=== PATIENT | male | born 1950 | race Caucasian/White ===

== ENCOUNTER 2017-07-12 09:07 | Day surgery (SDC) | payer BC ==
[2017-07-12] MEDS ORDERED: LACTATED RINGERS 1,000 ML IV SCH (10:09)
[2017-07-12] MEDS ORDERED: PROPOFOL 10 MG/ML 20 ML VIAL IV ONE (10:31)
[2017-07-12 10:33] VITALS: TEMP 96.8
--- NOTE | 2017-07-12 11:00 | P.PCN ---
Date of Procedure: 07/12/17 Procedure(s) Performed: BRIEF HISTORY: Patient is a 66-year-old pleasant white male, scheduled for an elective colonoscopy as a part of screening for colorectal neoplasia. PROCEDURE PERFORMED: Colonoscopy with snare polypectomy. PREOPERATIVE DIAGNOSIS: Screening for colon cancer. IV sedation per Anesthesia. PROCEDURE: After informed consent was obtained, the patient, was brought into the endoscopy unit. IV sedation was administered by Anesthesia under continuous monitoring. Digital rectal examination was normal. Initially the Olympus CF- 160 flexible video colonoscope was then inserted in the rectum, gradually advanced into the cecum without any difficulty. Careful examination was performed as the scope was gradually being withdrawn. Ileocecal valve and the appendiceal orifice were visualized and appeared normal. Prep was excellent. Mucosa of the cecum, ascending colon, transverse colon,appeared normal. In the descending colon there was a 1 cm polyp removed by snare polypectomy. Rest of the descending colon, sigmoid colon, and rectum appeared normal. Retroflexion was performed in the rectum and no lesions were seen. The patient tolerated the procedure well. IMPRESSION: 1 cm descending colon polyp status post snare polypectomy. Rest of the colon appeared normal RECOMMENDATIONS: Findings of this examination were discussed with the patient as well as his family. He was advised to follow with the biopsy results. If the biopsy shows a tubular adenoma he can have a repeat colonoscopy in 3-5 years.
[2017-07-12 11:22] VITALS: BP 110/59; PULSE 90; RESP 18
== END 2017-07-12 11:51 | disposition home or self-care (01) ==
LOC: ORWHC2ENDO 09:07
PROVIDERS: ATTEND Internal Medicine Gastroenterology
DX: Z12.11 Encounter for screening for malignant neoplasm of colon (principal); D12.4 Benign neoplasm of descending colon; I11.0 Hypertensive heart disease with heart failure; I50.9 Heart failure, unspecified; I49.9 Cardiac arrhythmia, unspecified; I25.5 Ischemic cardiomyopathy; E78.5 Hyperlipidemia, unspecified; I47.1 Supraventricular tachycardia; I48.91 Unspecified atrial fibrillation; E07.9 Disorder of thyroid, unspecified; Z79.82 Long term (current) use of aspirin; Z79.899 Other long term (current) drug therapy
CPT/HCPCS: 88305; 45385; J2704

== ENCOUNTER → 2019-06-29 | Outpatient (CLI) | payer MEDICARE, BC ==
[2019-06-29 17:03] LABS: African American GFR (CKD) 80.6 (60.0-200.0); Anion Gap 6.3 mmol/L (4.00-12.00); BUN/Creat Ratio 15.45 Ratio (12.00-20.00); Calcium 9.2 mg/dL (8.7-10.3); Carbon Dioxide 28.7 mmol/L (21.6-31.8); Chol/HDL Ratio 1.64; Non-African American GFR(CKD) 69.6 (60.0-200.0); Potassium 4.5 mmol/L (3.5-5.5)
== END | disposition home or self-care (01) ==
LOC: LABWHC1 08:47
PROVIDERS: ATTEND Physician Assistant
DX: I10 Essential (primary) hypertension (principal); E78.5 Hyperlipidemia, unspecified
CPT/HCPCS: 36415; 80048; 80061

== ENCOUNTER 2020-01-26 02:11 | Observation (INO) | payer MEDICARE, BC ==
--- NOTE | 2020-01-26 02:24 | ED ---
Chest Pain HPI - General Chief Complaint: Chest Pain Stated Complaint: Chest Pain Time Seen by Provider: 01/26/20 02:16 Source: patient, EMS Mode of arrival: EMS - History of Present Illness Initial Comments: Pulses a 69-year-old female with extensive past medical history most noted for CAD status post bypass. Patient presents to the emergency department today for evaluation of chest pain nausea, vomiting diaphoresis and hypotension. Patient reports that yesterday evening he began to feel nauseated and had some discomfort in his lower chest. Patient states he felt like maybe feet throughout. Feel better however he vomited and had no relief in his discomfort. He states that he began to feel sweaty and kind of lightheaded at which time he called 911. EMS found the patient to be mildly hypotensive but otherwise stable. He was given aspirin in route to the hospital. Nitro was held due to patient's hypotension. - Related Data Home Medications Medication Instructions Recorded Confirmed Aspirin [Adult Low Dose Aspirin EC] 81 mg PO DAILY 07/12/17 07/12/17 Atorvastatin Calcium [Lipitor] 1 tab PO DAILY 07/12/17 07/12/17 Benazepril [Lotensin] 1 tab PO DAILY 07/12/17 07/12/17 Lasix(Unknown Dose) 1 tab PO DIRECTED 07/12/17 07/12/17 Levothyroxine Sodium [Synthroid] 100 mcg PO DAILY 07/12/17 07/12/17 Lopressor[place]unkown 1 tab PO DAILY 07/12/17 07/12/17 Spironolactone [Aldactone] 25 mg PO DAILY 07/12/17 07/12/17 Allergies Allergy/AdvReac Type Severity Reaction Status Date / Time bee venom protein (honey bee) AdvReac Severe Rash/Hives Verified 01/26/20 02:18 Review of Systems ROS Statement: Those systems with pertinent positive or pertinent negative responses have been documented in the HPI. ROS Other: All systems not noted in ROS Statement are negative. EKG Findings - EKG Comments: EKG Findings:: EKG was obtained due to complaint of chest pain, EKG was obtained at 2:16 AM, rate is 91 rhythm is sinus, there is evidence of interventricular conduction delay, prolonged QT. No acute ST elevations or depressions no evidence of acute ischemia or infarction. Past Medical History Past Medical History: Atrial Fibrillation, Hyperlipidemia, Myocardial Infarction ([place]) Additional Past Medical History / Comment(s): CABG 5 YR AGO, TOTAL L HIP 2005,HODGIN LYMPH[place] 1976.1977,SPLEENECTOMY 1976 Last Myocardial Infarction Date:: 2011 History of Any Multi-Drug Resistant Organisms: None Reported Past Surgical History: Coronary Bypass/CABG, Heart Catheterization, Joint Replacement, Orthopedic Surgery Additional Past Surgical History / Comment(s): SPLEENECTOMY, HODGIN L[place]MPHOMA [place] 76 AND 1977 Past Anesthesia/Blood Transfusion Reactions: No Reported Reaction Past Psychological History: No Psychological Hx Reported Past Alcohol Use History: None Reported Past Drug Use History: None Reported - Past Family History family Family Medical History: Coronary Artery Disease (CAD) General Exam - General Exam Comments Initial Comments: Physical Exam GENERAL: Patient is well-developed and well-nourished. Patient is nontoxic and well- hydrated and is in no distress. HENT: Normocephalic, Atraumatic. EYES: PERRL, EOMI PULMONARY: Unlabored respirations. No audible rales rhonchi or wheezing was noted. CARDIOVASCULAR: There is a regular rate and rhythm without any murmurs gallops or rubs. Well healed sternotomy scar ABDOMEN: Soft and nontender with normal bowel sounds. No epigastric tenderness SKIN: Skin is clear with no lesions or rashes and otherwise unremarkable. : Deferred NEUROLOGIC: Patient is alert and oriented x3. Moving all extremities spontaneously MUSCULOSKELETAL: Normal extremities with adequate strength and full range of motion. No lower extremity swelling or edema. No calf tenderness. PSYCHIATRIC: Normal psychiatric evaluation. Course Vital Signs 01/26/20 01/26/20 01/26/20 02:14 02:17 02:29 Temperature 98.4 F Pulse Rate 95 98 Respiratory 16 16 16 Rate Blood Pressure 74/56 90/61 O2 Sat by Pulse 97 97 Oximetry 01/26/20 01/26/20 01/26/20 02:46 03:37 04:19 Temperature Pulse Rate 87 87 Respiratory 16 16 Rate Blood Pressure 105/48 98/62 88/43 O2 Sat by Pulse 100 100 Oximetry 01/26/20 05:06 Temperature Pulse Rate 87 Respiratory 15 Rate Blood Pressure 107/61 O2 Sat by Pulse 100 Oximetry Chest Pain [facility] Patient was seen and evaluated history is obtained from patient 59-year-old male with extensive history having episodes of chest pain with associated nausea was noted to be hypertensive for EMS Full cardiac workup was initiated EKG is abnormal but with no acute ischemic changes No previous EKG for comparison Labs were obtained and were relatively unremarkable however given the patient's symptoms and factors would recommend he remain in the hospital for evaluation by cardiology. Patient is agreeable to this. This plan was discussed with Dr. Tee accepts admission. Disposition Clinical Impression: Chest pain Disposition: HOME SELF-CARE Condition: Stable Is patient prescribed a controlled substance at d/c from ED?: No
[2020-01-26 02:26] LABS: Glucose,Whole Blood 153 mg/dL (75-99)
[2020-01-26 02:35] LABS: Basophils % (A) 0 %; Eosinophils # (A) 0.1 k/uL (0-0.7); Eosinophils % (A) 0 %; HCT 41.1 % (39.0-53.0); HGB 13.3 gm/dL (13.0-17.5); Lymphocytes # (A) 1.2 k/uL (1.0-4.8); Lymphocytes % (A) 8 %; MCH 29.1 pg (25.0-35.0); MCHC 32.4 g/dL (31.0-37.0); MCV 90.1 fL (80.0-100.0); Mean Platelet Volume 8.2; Monocytes # (A) 0.5 k/uL (0-1.0); Monocytes % (A) 4 %; Neutrophils # (A) 12.9 k/uL (1.3-7.7); Neutrophils % (A) 87 %; Platelet Count 242 k/uL (150-450); RBC 4.57 m/uL (4.30-5.90); RDW 14.2 % (11.5-15.5); WBC 14.8 k/uL (3.8-10.6)
[2020-01-26 02:49] LABS: ALT 22 U/L (4-49); AST 35 U/L (17-59); African American GFR (CKD) >90 (>60 ml/min/1.73 sqM); Albumin 3.9 g/dL (3.5-5.0); Alkaline Phosphatase 75 U/L (38-126); Anion Gap 9 mmol/L; Blood Urea Nitrogen 17 mg/dL (9-20); Calcium 9.2 mg/dL (8.4-10.2); Carbon Dioxide 25 mmol/L (22-30); Chloride 101 mmol/L (98-107); Glucose 143 mg/dL (74-99); Magnesium 1.9 mg/dL (1.6-2.3); Non-African American GFR(CKD) >90 (>60 ml/min/1.73 sqM); Sodium 135 mmol/L (137-145); Total Bilirubin 0.8 mg/dL (0.2-1.3); Total Protein 6.3 g/dL (6.3-8.2)
[2020-01-26 02:50] LABS: Prothrombin Time 10.4 sec (9.0-12.0)
--- NOTE | 2020-01-26 03:01 | XR ---
EXAMINATION TYPE: XR chest 2V DATE OF EXAM: 01/26/2020 COMPARISON: 06/20/2012 HISTORY: Cardiac surgery chest pain TECHNIQUE: 2 views FINDINGS: Heart is normal. Lungs are clear of infiltrate. There are sternal wires. Costophrenic angle s are clear. There are chest leads. Bony thorax is intact. IMPRESSION: No active cardiopulmonary disease. There is clearing of the pleural fluid and right lower lobe infiltrate compared to old exam.
[2020-01-26 03:02] LABS: Partial Thromboplastin Time 18.7 sec (22.0-30.0)
[2020-01-26] MEDS ORDERED: NITROGLYCERIN SL TABS 0.4 MG TAB SUBLINGUAL PRN (04:59)
--- NOTE | 2020-01-26 05:39 | P.HPIM ---
History of Present Illness H&P Date: 01/26/20 Chief Complaint: chest pain 69-year-old male with paroxysmal A. fib, CAD status post CABG Patient comes in due to having chest pain associated with nausea and vomiting. Symptoms started as feeling nauseous yesterday 7:30 pm with some discomfort in his lower chest 07/05 in [facility] which has progressed to throwing up. After which patient started feeling more pain became diaphoretic and dizzy and lightheaded for which he decided to call 911. EMS found him to be hypotensive, for which no nitro given. currently denies any chest pain , he only feels nauseous , he had couple more episodes of yellowish vomiting in the ED. he denies any fever, diarrhea or GI bleeding , denies any URI sympotmos , denies any recent travel or sick contact EKG no acute ST changes, trops negative. Review of Systems Pertinent positives as noted in HPI. All other systems were reviewed and are negative Past Medical History Past Medical History: Atrial Fibrillation, Hyperlipidemia, Myocardial Infarction ([place]) Additional Past Medical History / Comment(s): CABG 5 YR AGO, TOTAL L HIP 2004,H[place]GIN [place]MPH[place] 1975.1977,SPLEENECTOMY 1976 Last Myocardial Infarction Date:: 2011 History of Any Multi-Drug Resistant Organisms: None Reported Past Surgical History: Coronary Bypass/CABG, Heart Catheterization, Joint Replacement, Orthopedic Surgery Additional Past Surgical History / Comment(s): SPLEENECTOMY, [place]GIN [place] AND 1977 Past Anesthesia/Blood Transfusion Reactions: No Reported Reaction Past Psychological History: No Psychological Hx Reported Past Alcohol Use History: None Reported Past Drug Use History: None Reported - Past Family History family Family Medical History: Coronary Artery Disease (CAD) Medications and Allergies Home Medications Medication Instructions Recorded Confirmed Type Aspirin [Adult Low Dose Aspirin EC] 81 mg PO DAILY 07/12/17 07/12/17 History Atorvastatin Calcium [Lipitor] 1 tab PO DAILY 07/12/17 07/12/17 History Benazepril [Lotensin] 1 tab PO DAILY 07/12/17 07/12/17 History Lasix(Unknown Dose) 1 tab PO DIRECTED 07/12/17 07/12/17 History Levothyroxine Sodium [Synthroid] 100 mcg PO DAILY 07/12/17 07/12/17 History Lopressor[place] 1 tab PO DAILY 07/12/17 07/12/17 History Spironolactone [Aldactone] 25 mg PO DAILY 07/12/17 07/12/17 History Allergies Allergy/AdvReac Type Severity Reaction Status Date / Time bee venom protein (honey bee) AdvReac Severe Rash/Hives Verified 01/26/20 02:18 Physical Exam Vitals: Vital Signs Temp Pulse Resp BP Pulse Ox 01/26/20 05:06 87 15 107/61 100 01/26/20 04:19 87 16 88/43 100 01/26/20 03:37 87 16 98/62 100 01/26/20 02:46 105/48 01/26/20 02:29 16 01/26/20 02:17 98 16 90/61 97 01/26/20 02:14 98.4 F 95 16 74/56 97 Intake and Output 01/25/20 01/25/20 01/26/20 14:59 22:59 06:59 Other: Weight 68.946 kg Constitutional: No acute distress, conversant, pleasant Eyes: Anicteric sclerae, moist conjunctiva, Pupils equal round reactive to light ENMT: NC/AT Oropharynx clear, no erythema, or exudates Neck: Supple, FROM, no masses, or JVD No carotid bruits No thyromegaly Lungs: Clear to auscultation Clear to percussion Normal respiratory effort, no accessory muscle use Cardiovascular: Heart regular in rate and rhythm, No murmurs, gallops, or rubs No peripheral edema Abdominal: Soft Nontender, no guarding, rebound or rigidity Abdomen moving with respiration Normoactive bowel sounds No hepatomegaly, No splenomegaly No palpable mass No abdominal wall hernia noted Skin: Normal temperature, tone, texture, turgor No induration No subcutaneous nodules No rash, lesions No ulcers Extremities: No digital cyanosis No clubbing Pedal pulses intact and symmetrical Radial pulses intact and symmetrical No calf tenderness Psychiatric: Alert and oriented to person, place and time Appropriate affect fair judgement Neuro Muscles Strength 5/5 in all 4 extremities Sensation to light touch grossly present throughout Cranial nerves II-XII grossly intact No focal sensory deficits Lymphatics: no palpable cervical or supraclavicular , or inguinal lymph nodes Results CBC & Chem 7: 01/26/20 02:22 01/26/20 02:22 Labs: Abnormal Lab Results - Last 24 Hours (Table) 01/26/20 01/26/20 01/26/20 Range/Units 02:22 02:22 02:22 WBC 14.8 H (3.8-10.6) k/uL Neutrophils # 12.9 H (1.3-7.7) k/uL APTT 18.7 L (22.0-30.0) sec Sodium 135 L (137-145) mmol/L Glucose 143 H (74-99) mg/dL POC Glucose (mg/dL) (75-99) mg/dL 01/26/20 Range/Units 02:24 WBC (3.8-10.6) k/uL Neutrophils # (1.3-7.7) k/uL APTT (22.0-30.0) sec Sodium (137-145) mmol/L Glucose (74-99) mg/dL POC Glucose (mg/dL) 153 H (75-99) mg/dL Assessment and Plan Assessment: atypical chest pain hypotension history of CAD s/p CABG 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
[2020-01-26] MEDS: SODIUM CHLORIDE 0.9% 1,000 ML IV SCH ×2 (06:04→16:18)
[2020-01-26] MEDS: PANTOPRAZOLE 40 MG TABLET PO SCH ×2 (06:04→16:20)
[2020-01-26] MEDS: ATORVASTATIN 80 MG TAB PO SCH (08:09)
[2020-01-26] MEDS: ASPIRIN 81 MG PO SCH (08:09)
[2020-01-26] MEDS: HEPARIN SODIUM,PORCINE 5,000 UNIT/ML 1 ML VIAL SQ SCH ×3 (08:09→23:26)
--- NOTE | 2020-01-26 08:14 | US ---
EXAMINATION TYPE: US gallbladder DATE OF EXAM: 01/26/2020 COMPARISON: NONE CLINICAL HISTORY: pain vomiting. Pain, vomiting EXAM MEASUREMENTS: Liver Length: 15.0 cm Gallbladder Wall: 0.2 cm CBD: 0.4 cm Right Kidney: 9.4 x 3.4 x 3.7 cm Pancreas: Difficult to visualize due to overlying bowel gas, head appeared wnl Liver: Cyst right lobe= 1.0 x 0.9 x 1.1 cm, otherwise appeared wnl Gallbladder: wnl Evidence for sonographic Barbosa's sign: No CBD: wnl Right Kidney: wnl The pancreas is poorly visualized. The liver is normal in size without biliary dilatation. There is a 1.1 cm simple appearing cyst in th e right lobe of the liver. The gallbladder is unremarkable. Gallbladder wall measures 2 mm. The distal common hepatic duct measu res 4 mm. The right kidney is unremarkable. The intrahepatic IVC is unremarkable. IMPRESSION: SIMPLE APPEARING, 1.1 CM RIGHT HEPATIC CYST.
[2020-01-26] MEDS ORDERED: ATORVASTATIN 40 MG TAB PO SCH (09:00)
[2020-01-26] MEDS: LEVOTHYROXINE 100 MCG TAB PO SCH (10:14)
[2020-01-26] MEDS ORDERED: ONDANSETRON 4 MG/2 ML VIAL IVP PRN (10:20)
[2020-01-26] MEDS ORDERED: CALCIUM CARBONATE 500 MG CHEWABLE PO PRN (10:22)
--- NOTE | 2020-01-26 10:42 | CONS ---
CONSULTATION CHIEF COMPLAINT: Nausea and abdominal discomfort. Shamar is a 69-year-old gentleman with history of coronary artery disease status post CABG, hypertension, hypothyroidism, who is admitted to the hospital primarily with abdominal discomfort and recurrent bouts of nausea and he also had some vague chest discomfort in all this due to which Cardiology has been consulted. The patient's predominant symptom are the abdominal symptoms and is currently being evaluated for gallbladder related problems. At the time of my evaluation, he is chest pain free. EKG does not reveal acute ischemic changes. There is evidence of prior inferoposterior wall myocardial infarction. He has had 3 sets of troponin that have all been within normal limits. His potassium is normal. Creatinine is 0.8. PAST MEDICAL HISTORY: Significant for coronary artery disease status post CABG, hypertension, dyslipidemia, hypothyroidism. MEDICATIONS: Include Toprol-XL 50 daily, Lasix 20 daily, Lotensin 5 daily Lipitor 80 daily, aspirin, Synthroid and Aldactone. ALLERGIES: ALLERGY TO HONEY BEE. FAMILY HISTORY: Negative for premature coronary artery disease. SOCIAL HISTORY: Negative for smoking, EtOH abuse, or drug abuse. REVIEW OF SYSTEMS: HEENT is unremarkable. Cardiac as described above. Respiratory as described above. GI negative. Endocrine negative. Allergy none. Skin negative. Musculoskeletal significant for arthritis. Psychosocial negative. CONSTITUTIONAL negative. DERM negative. ONCOLOGICAL negative. 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 Rest of the system review is not relevant. PHYSICAL EXAM: Afebrile. Heart rate is 90 beats per minute. Blood pressure is 110/64, respiratory rate is 18. O2 saturation is 98% on room air. There is no jugular venous distention. Carotid upstroke is normal. There is no bruit. Chest exam reveals good air entry bilaterally. Heart exam reveals first and second heart sounds. No gallop. No murmur. ABDOMEN: Soft. Exam of extremities did not reveal any edema. Peripheral pulses are felt. LAB: Show that the hemoglobin is 13.3, potassium is 4, creatinine is 0.8. Three sets of troponins are negative. ASSESSMENT: 1. Atypical chest pain. 2. Coronary artery disease, status post coronary artery bypass grafting. 3. Hypertension. 4. Dyslipidemia. 5. Abdominal discomfort and nausea. PLAN: From cardiac standpoint, patient is doing well. I will obtain a 2D echo on him to evaluate his LV function. The patient states that he recently had a stress test through Dr. Avila. We will review the results in the morning. He does not require any further cardiac workup at this time. MMODL / IJN: [id number] /
[2020-01-26] MEDS ORDERED: MAG HYDROX/AL HYDROX/SIMETH 30 ML, HYOSCYAMINE ELIXIR 10 ML, LIDOCAINE VISCOUS 2% 10 ML PO ONE ×3 (11:00)
[2020-01-26 11:06] LABS: HCT 41.5 % (39.0-53.0); HGB 13.4 gm/dL (13.0-17.5); MCH 29.3 pg (25.0-35.0); MCHC 32.3 g/dL (31.0-37.0); MCV 90.8 fL (80.0-100.0); Platelet Count 267 k/uL (150-450); RBC 4.57 m/uL (4.30-5.90); RDW 14.1 % (11.5-15.5); WBC 13.1 k/uL (3.8-10.6)
[2020-01-26 11:11] LABS: AST 36 U/L (17-59); African American GFR (CKD) >90 (>60 ml/min/1.73 sqM); Albumin 3.9 g/dL (3.5-5.0); Alkaline Phosphatase 76 U/L (38-126); Anion Gap 8 mmol/L; Blood Urea Nitrogen 16 mg/dL (9-20); Calcium 9.3 mg/dL (8.4-10.2); Carbon Dioxide 26 mmol/L (22-30); Chloride 101 mmol/L (98-107); Glucose 133 mg/dL (74-99); Non-African American GFR(CKD) 87 (>60 ml/min/1.73 sqM); Potassium 4.3 mmol/L (3.5-5.1); Sodium 135 mmol/L (137-145); Total Bilirubin 0.7 mg/dL (0.2-1.3); Total Protein 6.2 g/dL (6.3-8.2)
[2020-01-26 11:18] LABS: ALT 28 U/L (4-49)
[2020-01-26] MEDS: IOPAMIDOL CONTRAST (ORAL USE) VIAL PO PRN ×2 (11:43→13:09)
--- NOTE | 2020-01-26 13:12 | P.PN ---
Subjective Progress Note Date: 01/26/20 Principal diagnosis: nausea Patient is a 69-year-old male with a history of atrial fibrillation, coronary artery disease status post CABG, and osteoarthritis who presented to the e mergency department secondary to nausea and vomiting associated with chest pain. In the ER he underwent extensive evaluation. He was brought in by EMS and had been hypotensive in route and on arrival. Therefore no nitroglycerin was given. He continued to have yellowish vomiting in the emergency department. Initial laboratory analysis showed a white blood cell count 14.8, sodium 135, glucose 1 43, and initial troponin was negative. Initial EKG did not show any signs of acute ischemia. Chest x-ray showed no acute process, EKG demonstrated normal sinus rhythm significantly prolonged QT at 501. He doesn't know that he went blueberry picking and is unsure of all of the blueberries were washed appropriately, he denies any other unusual changes in food. His does not have a significant history of gastritis. The remainder of his troponins were negative. He was seen by cardiology who recommended review of his outpatient stress test in the morning as well as an echocardiogram. Due to his persistent nausea and vomiting CT abdomen and pelvis was ordered. Patient seen and examined at bedside. Currently chest pain-free, does complain of some john-epigastric pain however he states that it is mostly nausea. He reports that he blueberry picking and is unsure if the blueberries were washed well. He denies any recent changes in his medication. He has not ate or drank anything new or unusual. He does not have a strong history of heartburn. Objective - Vital Signs Vital signs: Vital Signs Temp 98 F 01/26/20 08:52 Pulse 92 01/26/20 09:00 Resp 18 01/26/20 09:00 BP 109/64 01/26/20 08:52 Pulse Ox 98 01/26/20 08:52 Intake & Output 01/25/20 01/26/20 01/26/20 18:59 06:59 18:59 Intake Total 0 0 Balance 0 0 Weight 68.946 kg Intake: Oral 0 0 - Exam General: Ill appearing, no distress, appears at stated age Derm: warm, dry Head: atraumatic, normocephalic, symmetric Eyes: EOMI, no lid lag, anicteric sclera Mouth: no lip lesion, mucus membranes moist Cardiovascular: S1S2 reg, no murmur, positive posterior tibial pulse bilateral, Lungs: CTA bilateral, no rhonchi, no rales , no accessory muscle use Abdominal: soft, nontender to palpation, no guarding, no appreciable organomegaly Ext: no gross muscle atrophy, no edema, no contractures Neuro: CN II-XI grossly intact, no focal neuro deficits Psych: Alert, oriented, flat affect - Labs CBC & Chem 7: 01/26/20 05:26 01/26/20 05:26 Labs: Abnormal Lab Results - Last 24 Hours (Table) 01/26/20 01/26/20 01/26/20 Range/Units 02:22 02:22 02:22 WBC 14.8 H (3.8-10.6) k/uL Neutrophils # 12.9 H (1.3-7.7) k/uL APTT 18.7 L (22.0-30.0) sec Sodium 135 L (137-145) mmol/L Glucose 143 H (74-99) mg/dL POC Glucose (mg/dL) (75-99) mg/dL Total Protein (6.3-8.2) g/dL 01/26/20 01/26/20 01/26/20 Range/Units 02:24 05:26 05:26 WBC 13.1 H (3.8-10.6) k/uL Neutrophils # (1.3-7.7) k/uL APTT (22.0-30.0) sec Sodium 135 L (137-145) mmol/L Glucose 133 H (74-99) mg/dL POC Glucose (mg/dL) 153 H (75-99) mg/dL Total Protein 6.2 L (6.3-8.2) g/dL Assessment and Plan Assessment: nausea and vomiting - gallbladder US neggative - Zofran - GI cocktail - CT abd and pelvis Chest pain wiht hx of CAD - trop negative - Cardio recs appreciated: review of recent stress test and echo in AM - ASA, Lipitor Hypotension - improved after fluids - hold benzapril and metoprolol, aldactone Prolonged Qt - monitor closely with zofran Hypothyroidism - synthroid DVT prophylaxis: heparin Discussed with: patient Anticipated discharge: in 1-[address]: home A total of 25 minutes was spent on the care of this complex patient more than 50% of the time was spent in counseling and care coordination.
--- NOTE | 2020-01-26 14:26 | CT ---
EXAMINATION TYPE: CT abdomen pelvis w con DATE OF EXAM: 01/26/2020 COMPARISON: None HISTORY: pain and nausea CT DLP: 532.1 mGycm Automated exposure control for dose reduction was used. CONTRAST: Performed with IV Contrast, patient injected with 100 mL of Isovue 300. Lung bases are clear. There is no pleural effusion. Heart size is normal. There is 2 cm cyst in the superior right lobe of the liver. Gallbladder appears normal. Bile ducts ar e not dilated. Spleen appears absent. There is no evidence of pancreatic mass. The stomach is intact. There is no adrenal mass. Kidneys show satisfactory contrast opacification. There is no hydronephrosi s. There is normal excretion on the delayed images. Ureters are not dilated. There is no retroperiton eal adenopathy. Bladder distends smoothly. There is left hip prosthesis. There is no mesenteric edema. There is no ascites or free air. There is no sign of a bowel obstructio n. Lumbar vertebra have normal alignment. Disc spaces are fairly normal. There is no compression frac ture. Bony pelvis appears intact. There is minor arthritic change in the right hip joint. There is no intestinal wall thickening. There is mild dilation of the small bowel with the oral contr ast up to 3.3 cm. This is seen in the mid ileum. The contrast however is seen in the right colon and transverse colon. There are surgical clips in the retroperitoneum. IMPRESSION: There is evidence of mild small bowel ileus. No mechanical obstruction. Spleen is absent. Previous aguilar rgery.
[2020-01-26] MEDS ORDERED: polyethylene glycoL 3350 17 GM POWD.PACK PO STA (14:40)
[2020-01-26 20:07] VITALS: RESP 16
[2020-01-27] MEDS: SODIUM CHLORIDE 0.9% 1,000 ML IV SCH (00:54)
[2020-01-27 04:18] LABS: Cholesterol 119 mg/dL (<200); HDL Cholesterol 77 mg/dL (40-60); LDL Cholesterol,Calculated 31 mg/dL (0-99); Triglycerides 54 mg/dL (<150)
[2020-01-27] MEDS: LEVOTHYROXINE 100 MCG TAB PO SCH (06:03)
[2020-01-27] MEDS: PANTOPRAZOLE 40 MG TABLET PO SCH (06:03)
[2020-01-27] MEDS ORDERED: ASPIRIN 325 MG TAB PO SCH (09:00)
[2020-01-27] MEDS: HEPARIN SODIUM,PORCINE 5,000 UNIT/ML 1 ML VIAL SQ SCH (09:18)
[2020-01-27] MEDS: ATORVASTATIN 80 MG TAB PO SCH (09:18)
[2020-01-27] MEDS: ASPIRIN 81 MG PO SCH (09:18)
--- NOTE | 2020-01-27 10:08 | P.PN ---
Subjective This is a pleasant 69-year-old male past medical history significant for coronary artery disease status post bypass grafting, Hodgkin's lymphoma in the 1970s, hypothyroidism, dyslipidemia and hypertension. He follows in the office with Dr. Avila. He is seen and examined sitting up in the chair in no acute distress. He states his abdominal pain, nausea and vomiting has subsided. He has no further symptoms of chest discomfort. He denies shortness of breath, dizziness or palpitations. He underwent CT of the abdomen pelvis revealing evidence of a mild small bowel ileus with no mechanical obstruction. Blood pressure 93/56 heart rate 81 afebrile maintaining oxygen saturation on room air. Currently maintained on aspirin 81 mg daily, atorvastatin 80 mg daily. He is receiving her Protonix since admission. Antihypertensives and diuretics have been held secondary to hypotension. GENERAL: Well-appearing, well-nourished and in no acute distress. NECK: Supple without JVD or thyromegaly. LUNGS: Breath sounds clear to auscultation bilaterally. Respiration equal and unlabored. No wheezes, rales or rhonchi. HEART: Regular rate and rhythm without murmurs, rubs or gallops. S1 and S2 heard. EXTREMITIES: Normal range of motion, no edema. No clubbing or cyanosis. Peripheral pulses intact. ASSESSMENT Chest pain, atypical. An acute coronary event has been ruled out Leukocytosis Abdominal pain with possible ileus Hypotension Coronary artery disease status post bypass grafting History of hypertension Dyslipidemia PLAN Ongoing medical management and further evaluation of ileus. Follow up in the office with Dr. Avila upon discharge. Nurse Practitioner note has been reviewed, I agree with a documented findings and plan of care. Patient was seen and examined. Objective - Vital Signs Vital signs: Vital Signs Temp 97.9 F 01/27/20 03:00 Pulse 81 01/27/20 03:00 Resp 16 01/27/20 03:00 BP 93/56 01/27/20 03:00 Pulse Ox 95 01/27/20 03:00 Intake & Output 01/26/20 01/27/20 01/27/20 18:59 06:59 18:59 Intake Total 0 800 Balance 0 800 Intake: Intake, IV Titration 800 Amount Sodium Chloride 0.9% 1, 800 000 ml @ 100 mls/hr IV . Q10H KYLE Rx#:[id number] Oral 0 0 Other: # Voids 1 1 - Labs CBC & Chem 7: 01/26/20 05:26 01/26/20 05:26 Labs: Abnormal Lab Results - Last 24 Hours (Table) 01/26/20 01/26/20 01/26/20 Range/Units 05:26 05:26 05:26 WBC 13.1 H (3.8-10.6) k/uL Sodium 135 L (137-145) mmol/L Glucose 133 H (74-99) mg/dL Total Protein 6.2 L (6.3-8.2) g/dL HDL Cholesterol 77 H (40-60) mg/dL
[2020-01-27 10:29] VITALS: BP 112/66; PULSE 71; TEMP 97.5
--- NOTE | 2020-01-27 10:58 | P.DS ---
Providers Date of admission: 01/26/20 05:00 Expected date of discharge: 01/27/20 Attending physician: Delores Tee MD Consults: 01/26/20 05:00 Consult Physician Urgent Consulting Provider: Thee Avila Consult Reason/Comments: established patient, known CAD, chest pain Do you want consulting provider notified?: Yes, Notify in am Primary care physician: Salomon Cárdenas Hospital Course: Discharge Diagnosis: Ileus Atypical chest pain epigastric pain Hypotnesion, resolved CAD with hx of CABG HLD HTN Hospital Course: Patient is a 69-year-old male with a history of atrial fibrillation, coronary artery disease status post CABG, and osteoarthritis who presented to the emergency department secondary to nausea and vomiting associated with chest pain. In the ER he underwent extensive evaluation. He was brought in by EMS and had been hypotensive in route and on arrival. Therefore no nitroglycerin was given. He continued to have yellowish vomiting in the emergency department. Initial laboratory analysis showed a white blood cell count 14.8, sodium 135, glucose 143, and initial troponin was negative. Initial EKG did not show any signs of acute ischemia. Chest x-ray showed no acute process, EKG demonstrated normal sinus rhythm significantly prolonged QT at 501. He doesn't know that he went blueberry picking and is unsure of all of the blueberries were washed appropriately, he denies any other unusual changes in food. His does not have a significant history of gastritis. The remainder of his troponins were negative. He was seen by cardiology who recommended review of his outpatient stress test in the morning as well as an echocardiogram. Due to his persistent nausea and vomiting CT abdomen and pelvis was ordered which showed an ileus. He was given a dose of miralax and had a bowel movment. Between the bowel movement and PPI his nausea and abd pain resolved. He was cleared by cardiology for disharge and outpatient follow-up. He will remain on a PPI for atleast 4 weeks. Patient seen and examined at bedside. Nausea and pain is resolved.BM yesterday. Vital signs reviewed and stable. General: non toxic, no distress, appears at stated age Derm: warm, dry Head: atraumatic, normocephalic, symmetric Eyes: EOMI, no lid lag, anicteric sclera Mouth: no lip lesion, mucus membranes moist Cardiovascular: S1S2 reg, no murmur, positive posterior tibial pulse bilateral, Lungs: CTA bilateral, no rhonchi, no rales , no accessory muscle use Abdominal: soft, nontender to palpation, no guarding, no appreciable organomegaly Ext: no gross muscle atrophy, no edema, no contractures Neuro: CN II-XI grossly intact, no focal neuro deficits Psych: Alert, oriented, appropriate affect A total of 25 minutes of time were spent preparing this complex discharge summary. Patient Condition at Discharge: Stable Plan - Discharge Summary Discharge Rx Participant: Yes New Discharge Prescriptions: New Pantoprazole [Protonix] 40 mg PO AC-BID #60 tablet.dr Desouza Levothyroxine Sodium [Synthroid] 100 mcg PO DAILY Atorvastatin Calcium [Lipitor] 80 mg PO DAILY Aspirin [Adult Low Dose Aspirin EC] 81 mg PO DAILY Discontinued Benazepril [Lotensin] 5 mg PO DAILY Spironolactone [Aldactone] 25 mg PO DAILY Metoprolol Succinate (ER) [Toprol Xl] 50 mg PO DAILY Furosemide [Lasix] 20 mg PO DAILY Discharge Medication List Aspirin [Adult Low Dose Aspirin EC] 81 mg PO DAILY 07/12/17 [History] Atorvastatin Calcium [Lipitor] 80 mg PO DAILY 07/12/17 [History] Levothyroxine Sodium [Synthroid] 100 mcg PO DAILY 07/12/17 [History] Pantoprazole [Protonix] 40 mg PO AC-BID #60 tablet. 01/27/20 [Rx] Follow up Appointment(s)/Referral(s): Thee Avila MD [STAFF PHYSICIAN] - 2 Weeks Salomon Cárdenas MD [Primary Care Provider] - 1-2 days Activity/Diet/Wound Care/Special Instructions: Activity: as tolerated Diet: heart healthy Special Instructions: You will be off your blood pressure medications at home. Please keep the medications Take blood pressure in the morning afternoon Please resume your metoprolol if 2 reading in a row show a top number of greater than 130. Discharge Disposition: HOME SELF-CARE
--- NOTE | 2020-01-28 11:37 | ECHOF ---
Referral Reason:chest pain MEASUREMENTS -------- HEIGHT: 177.8 cm WEIGHT: 68.9 kg BP: 94/53 IVSd: 1.0 cm (0.6 - 1.1) LVIDd: 3.5 cm (3.9 - 5.3) LVPWd: 1.0 cm (0.6 - 1.1) IVSs: 1.2 cm LVIDs: 2.8 cm LVPWs: 1.3 cm LA Diam: 3.1 cm (2.7 - 3.8) RVIDd: 4.0 cm (< 3.3) Ao Diam: 3.6 cm (2.0 - 3.7) AV Cusp: 1.9 cm (1.5 - 2.6) EPSS: 1.8 cm MV E Yaniv: 1.49 m/s MV DecT: 236 ms MV A Yaniv: 0.91 m/s MV E/A Ratio: 1.64 RAP: 5.00 mmHg RVSP: 36.29 mmHg MV EF SLOPE: 24.97 mm/s (70 - 150) MV EXCURSION: 8.46 mm (> 18.000) FINDINGS -------- Sinus rhythm. This was a technically difficult study with suboptimal apical views. The left ventricular size is normal. Left ventricular wall thickness is normal. Overall left vent ricular systolic function is moderately impaired with, an EF between 35 - 40 %. Apical lateral LV w all motion is hypokinetic. Apical septum LV wall motion is hypokinetic. The right ventricle is moderately enlarged. The left atrial size is normal. The right atrium is normal in size. Interatrial and interventricular septum intact. There is mild aortic valve sclerosis. Mild mitral annular calcification present. Mild mitral regurgitation is present. Mild mitral sten osis. The peak and mean MV gradients are 10.47mmHg 4.52mmHg as measured by doppler. Mild tricuspid regurgitation present. There is mild pulmonary hypertension. The right ventricular systolic pressure, as measured by Doppler, is 36.29mmHg. Trace/mild (physiologic) pulmonic regurgitation. The aortic root size is normal. Normal inferior vena cava with normal inspiratory collapse consistent with estimated right atrial pre ssure of 5 mmHg. There is no pericardial effusion. xx ml of Lumason was utilized for enhancement of images. CONCLUSIONS -------- 1. The left ventricular size is normal. 2. Left ventricular wall thickness is normal. 3. Overall left ventricular systolic function is moderately impaired with, an EF between 35 - 40 %. 4. Apical lateral LV wall motion is hypokinetic. 5. Apical septum LV wall motion is hypokinetic. 6. The right ventricle is moderately enlarged. 7. The left atrial size is normal. 8. There is mild aortic valve sclerosis. 9. Mild mitral annular calcification present. 10. Mild mitral regurgitation is present. 11. The peak and mean MV gradients are 10.47mmHg 4.52mmHg as measured by doppler. 12. Mild mitral stenosis. 13. Mild tricuspid regurgitation present. 14. There is mild pulmonary hypertension. 15. The right ventricular systolic pressure, as measured by Doppler, is 36.29mmHg. 16. Trace/mild (physiologic) pulmonic regurgitation. 17. There is no pericardial effusion. INTERNET SECURITY SPECIALIST: Mari Hook RDCS
== END 2020-01-27 15:14 | disposition home or self-care (01) ==
LOC: EC 02:11 → 3NCARDOBS 05:00
PROVIDERS: ADMIT Internal Medicine; ATTEND Internal Medicine
DX: R07.89 Other chest pain (principal); K56.7 Ileus, unspecified; K29.70 Gastritis, unspecified, without bleeding; I95.9 Hypotension, unspecified; I25.10 Atherosclerotic heart disease of native coronary artery without angina pectoris; Z95.1 Presence of aortocoronary bypass graft; E78.5 Hyperlipidemia, unspecified; I10 Essential (primary) hypertension; I45.89 Other specified conduction disorders; R94.31 Abnormal electrocardiogram [ECG] [EKG]; I48.91 Unspecified atrial fibrillation; I25.2 Old myocardial infarction; M19.90 Unspecified osteoarthritis, unspecified site; E03.9 Hypothyroidism, unspecified; I08.3 Combined rheumatic disorders of mitral, aortic and tricuspid valves; Z03.818 Encounter for observation for suspected exposure to other biological agents ruled out; Z79.82 Long term (current) use of aspirin; Z79.899 Other long term (current) drug therapy; Z79.890 Hormone replacement therapy; Z91.030 Bee allergy status; Z96.642 Presence of left artificial hip joint; Z85.71 Personal history of Hodgkin lymphoma; Z90.81 Acquired absence of spleen; Z98.890 Other specified postprocedural states; Z82.49 Family history of ischemic heart disease and other diseases of the circulatory system
CPT/HCPCS: 93005 ×2; 96372 ×2; 96374; 99285; 36415; 83880; 80061; 80053; 83690; 83735; 84484; 85025; 85027; 85610; 85730; 71046; 76705; 74177; G0378 ×2; C8929; U0003; J1644 ×2; J2405; Q9950; Q9967; 93306

== ENCOUNTER 2020-02-04 17:27 | Emergency (ER) | payer MEDICARE, BC ==
[2020-02-04 17:39] VITALS: RESP 18
[2020-02-04] MEDS ORDERED: SODIUM CHLORIDE 0.9% 500 ML 500 ML IV STA (18:14)
--- NOTE | 2020-02-04 18:25 | ED ---
General Adult HPI - General Chief complaint: Arrhythmia/Palpitations Stated complaint: irregular heart beat/High BP Time Seen by Provider: 02/04/20 17:35 Source: patient, RN notes reviewed, old records reviewed Mode of arrival: wheelchair Limitations: no limitations - History of Present Illness Initial comments: This is a 69-year-old male who comes into the emergency department today stating that he is been monitoring his blood pressure and heart rate for various reasons for the last week or so patient states all of a sudden today his blood pressure went up to 169 systolic and his heart rate was 114 so that concerned him so he came to the emergency department. Patient states he was in the hospital about a week ago and was told to stop his 2 blood pressure medicines and his diuretic. Patient states went to see his primary care doctor and he told to start meds back up today. He was supposed to start his beta carolyn but cut it in half. Patient states he had no chest pain he did feel occasional extra beat. Patient denied any shortness of breath. Patient denied lightheadedness or dizziness. Patient denied any recent fever chills per patient denies any swelling to the legs or calf tenderness. Patient is currently asymptomatic - Related Data Home Medications Medication Instructions Recorded Confirmed Aspirin [Adult Low Dose Aspirin EC] 81 mg PO DAILY 07/12/17 02/04/20 Atorvastatin Calcium [Lipitor] 80 mg PO DAILY 07/12/17 02/04/20 Levothyroxine Sodium [Synthroid] 100 mcg PO DAILY 07/12/17 02/04/20 Benazepril [Lotensin] 5 mg PO DAILY 02/04/20 02/04/20 Furosemide [Lasix] 20 mg PO DAILY 02/04/20 02/04/20 Metoprolol Succinate (ER) [Toprol 50 mg PO DAILY 02/04/20 02/04/20 Xl] Spironolactone [Aldactone] 25 mg PO DAILY 02/04/20 02/04/20 Previous Rx's Medication Instructions Recorded Pantoprazole [Protonix] 40 mg PO AC-BID #60 tablet. 01/27/20 Allergies Allergy/AdvReac Type Severity Reaction Status Date / Time bee venom protein (honey bee) AdvReac Severe Rash/Hives Verified 02/04/20 19:13 Review of Systems ROS Statement: Those systems with pertinent positive or pertinent negative responses have been documented in the HPI. ROS Other: All systems not noted in ROS Statement are negative. Past Medical History Past Medical History: Atrial Fibrillation, Hyperlipidemia, Myocardial Infarction (PR) Additional Past Medical History / Comment(s): CABG 5 YR AGO, TOTAL L HIP 2004,HODGIN LYMPHOMA [place] 1975.1977,SPLEENECTOMY 1976 Last Myocardial Infarction Date:: 2011 History of Any Multi-Drug Resistant Organisms: None Reported Past Surgical History: Coronary Bypass/CABG, Heart Catheterization, Joint Replacement, Orthopedic Surgery Additional Past Surgical History / Comment(s): SPLEENECTOMY, HODGIN LYMPHOMA [place] AND 1977 Past Anesthesia/Blood Transfusion Reactions: No Reported Reaction Past Psychological History: No Psychological Hx Reported Past Alcohol Use History: None Reported Past Drug Use History: None Reported - Past Family History family Family Medical History: Coronary Artery Disease (CAD) General Exam - General Exam Comments Initial Comments: GENERAL: Patient is well-developed and well-nourished. Patient is nontoxic and well-h ydrated and is in no acute distress. ENT: Neck is soft and supple. No significant lymphadenopathy is noted. Oropharynx is clear. Moist mucous membranes. Neck has full range of motion without elic iting any pain. EYES: The sclera were anicteric and conjunctiva were pink and moist. Extraocular movements were intact and pupils were equal round and reactive to light. Eyelids were unremarkable. PULMONARY: Unlabored respirations. Good breath sounds bilaterally. No audible rales rhonchi or wheezing was noted. CARDIOVASCULAR: There is a regular rate and rhythm without any murmurs gallops or rubs. ABDOMEN: Soft and nontender with normal bowel sounds. SKIN: Skin is clear with no lesions or rashes and otherwise unremarkable. NEUROLOGIC: Patient is alert and oriented x3. Cranial nerves II through XII are grossly intact. Motor and sensory are also intact. Normal speech, volume and content. Symmetrical smile. MUSCULOSKELETAL: Normal extremities with adequate strength and full range of motion. No lower extremity swelling or edema. No calf tenderness. LYMPHATICS: No significant lymphadenopathy is noted PSYCHIATRIC: Normal psychiatric evaluation. Limitations: no limitations Course Vital Signs 02/04/20 02/04/20 17:33 19:00 Temperature 98.2 F Pulse Rate 107 H 85 Respiratory 18 18 Rate Blood Pressure 136/82 135/80 O2 Sat by Pulse 99 99 Oximetry Medical Decision Making - Medical Decision Making EKG shows sinus rhythm with occasional PVC at a rate of 99 bpm AL interval is 174 QRS is 96 QT interval 360 QTC is 462. Patient's EKG shows no ST segment elevation. Chest x-ray shows no acute abnormality. Patient's been a symptomatically throughout his ED stay. - Lab Data Result diagrams: 02/04/20 18:24 02/04/20 18:24 Lab Results 02/04/20 02/04/20 02/04/20 Range/Units 18:24 18:24 18:24 WBC 7.4 (3.8-10.6) k/uL RBC 4.86 (4.30-5.90) m/uL Hgb 13.8 (13.0-17.5) gm/dL Hct 44.6 (39.0-53.0) % MCV 91.8 (80.0-100.0) fL MCH 28.5 (25.0-35.0) pg MCHC 31.0 (31.0-37.0) g/dL RDW 13.8 (11.5-15.5) % Plt Count 294 (150-450) k/uL Neutrophils % 52 % Lymphocytes % 34 % Monocytes % 7 % Eosinophils % 4 % Basophils % 1 % Neutrophils # 3.8 (1.3-7.7) k/uL Lymphocytes # 2.5 (1.0-4.8) k/uL Monocytes # 0.5 (0-1.0) k/uL Eosinophils # 0.3 (0-0.7) k/uL Basophils # 0.1 (0-0.2) k/uL Hypochromasia Slight PT 10.1 (9.0-12.0) sec INR 1.0 (<1.2) APTT 21.6 L (22.0-30.0) sec Sodium 135 L (137-145) mmol/L Potassium 4.1 (3.5-5.1) mmol/L Chloride 101 (98-107) mmol/L Carbon Dioxide 25 (22-30) mmol/L Anion Gap 9 mmol/L BUN 14 (9-20) mg/dL Creatinine 1.11 (0.66-1.25) mg/dL Est GFR (CKD-EPI)AfAm 79 (>60 ml/min/1.73 sqM) Est GFR (CKD-EPI)NonAf 69 (>60 ml/min/1.73 sqM) Glucose 107 H (74-99) mg/dL Calcium 9.1 (8.4-10.2) mg/dL Magnesium 1.8 (1.6-2.3) mg/dL Total Bilirubin 0.6 (0.2-1.3) mg/dL AST 87 H (17-59) U/L ALT 61 H (4-49) U/L Alkaline Phosphatase 89 (38-126) U/L Troponin I (0.000-0.034) ng/mL Total Protein 6.4 (6.3-8.2) g/dL Albumin 3.9 (3.5-5.0) g/dL TSH 6.260 H (0.465-4.680) mIU/L 02/04/20 Range/Units 18:24 WBC (3.8-10.6) k/uL RBC (4.30-5.90) m/uL Hgb (13.0-17.5) gm/dL Hct (39.0-53.0) % MCV (80.0-100.0) fL MCH (25.0-35.0) pg MCHC (31.0-37.0) g/dL RDW (11.5-15.5) % Plt Count (150-450) k/uL Neutrophils % % Lymphocytes % % Monocytes % % Eosinophils % % Basophils % % Neutrophils # (1.3-7.7) k/uL Lymphocytes # (1.0-4.8) k/uL Monocytes # (0-1.0) k/uL Eosinophils # (0-0.7) k/uL Basophils # (0-0.2) k/uL Hypochromasia PT (9.0-12.0) sec INR (<1.2) APTT (22.0-30.0) sec Sodium (137-145) mmol/L Potassium (3.5-5.1) mmol/L Chloride (98-107) mmol/L Carbon Dioxide (22-30) mmol/L Anion Gap mmol/L BUN (9-20) mg/dL Creatinine (0.66-1.25) mg/dL Est GFR (CKD-EPI)AfAm (>60 ml/min/1.73 sqM) Est GFR (CKD-EPI)NonAf (>60 ml/min/1.73 sqM) Glucose (74-99) mg/dL Calcium (8.4-10.2) mg/dL Magnesium (1.6-2.3) mg/dL Total Bilirubin (0.2-1.3) mg/dL AST (17-59) U/L ALT (4-49) U/L Alkaline Phosphatase (38-126) U/L Troponin I <0.012 (0.000-0.034) ng/mL Total Protein (6.3-8.2) g/dL Albumin (3.5-5.0) g/dL TSH (0.465-4.680) mIU/L Disposition Clinical Impression: Tachycardia, PVCs (premature ventricular contractions) Disposition: HOME SELF-CARE Condition: Good Instructions (If sedation given, give patient instructions): Premature Ventric ular Contractions (ED) Is patient prescribed a controlled substance at d/c from ED?: No Referrals: Salomon Cárdenas MD [Primary Care Provider] - 1-2 days Time of Disposition: 19:29
[2020-02-04 18:33] LABS: Basophils # (A) 0.1 k/uL (0-0.2); Basophils % (A) 1 %; Eosinophils # (A) 0.3 k/uL (0-0.7); Eosinophils % (A) 4 %; HCT 44.6 % (39.0-53.0); HGB 13.8 gm/dL (13.0-17.5); Hypochromasia Slight; Lymphocytes # (A) 2.5 k/uL (1.0-4.8); Lymphocytes % (A) 34 %; MCH 28.5 pg (25.0-35.0); MCV 91.8 fL (80.0-100.0); Mean Platelet Volume 8.7; Monocytes # (A) 0.5 k/uL (0-1.0); Monocytes % (A) 7 %; Neutrophils # (A) 3.8 k/uL (1.3-7.7); Neutrophils % (A) 52 %; Platelet Count 294 k/uL (150-450); RBC 4.86 m/uL (4.30-5.90); RDW 13.8 % (11.5-15.5); WBC 7.4 k/uL (3.8-10.6)
--- NOTE | 2020-02-04 18:48 | XR ---
EXAMINATION TYPE: XR chest 2V DATE OF EXAM: 02/04/2020 COMPARISON: Prior chest x-ray 01/26/2020 HISTORY: Dysrhythmia, palpitations TECHNIQUE: Frontal and lateral views of the chest are obtained. FINDINGS: Patient is post median sternotomy. Prominent lung volumes suggest underlying COPD. Surgical clips present in the upper abdomen. There is no focal air space opacity, pleural effusion, or pneumo thorax seen. The cardiac silhouette size is within normal limits. The osseous structures are intac t. IMPRESSION: No acute cardiopulmonary process.
[2020-02-04 18:49] LABS: Albumin 3.9 g/dL (3.5-5.0); Calcium 9.1 mg/dL (8.4-10.2); Magnesium 1.8 mg/dL (1.6-2.3); Potassium 4.1 mmol/L (3.5-5.1); Total Bilirubin 0.6 mg/dL (0.2-1.3); Total Protein 6.4 g/dL (6.3-8.2)
[2020-02-04 18:56] LABS: Prothrombin Time 10.1 sec (9.0-12.0)
[2020-02-04 18:57] LABS: Partial Thromboplastin Time 21.6 sec (22.0-30.0)
[2020-02-04 19:36] VITALS: BP 135/75; PULSE 84
[2020-02-04 19:52] VITALS: TEMP 98.6
== END 2020-02-04 19:52 | disposition home or self-care (01) ==
LOC: EC 17:27
DX: I49.3 Ventricular premature depolarization (principal); I48.91 Unspecified atrial fibrillation; E78.5 Hyperlipidemia, unspecified; I25.2 Old myocardial infarction; Z79.82 Long term (current) use of aspirin; Z79.890 Hormone replacement therapy; Z79.899 Other long term (current) drug therapy; Z91.030 Bee allergy status; Z95.1 Presence of aortocoronary bypass graft; Z85.71 Personal history of Hodgkin lymphoma
CPT/HCPCS: 36415; 71046; 80053; 83735; 84443; 84484; 85025; 85610; 85730; 93005; 99285

== ENCOUNTER 2020-11-05 08:28 | Day surgery (SDC) | payer MEDICARE, BC ==
[2020-11-02 15:02] VITALS: BMI 21.2
--- NOTE | 2020-11-03 17:22 | P.GSHP ---
History of Present Illness H&P Date: 11/03/20 70 yo male with t1c prostate cancer who has chosen ebrt with lhrh therapy to treat this cancer. He comes for placement of SPACEOAR gel by dr Aj to protect the rectum during the ebrt therapy. - Constitutional Constitutional: Denies chills, Denies fever - EENT Eyes: denies blurred vision, denies pain Ears, nose, mouth and throat: Denies headache, Denies sore throat - Cardiovascular Cardiovascular: Denies chest pain, Denies shortness of breath - Respiratory Respiratory: Denies cough, Denies 7 - Gastrointestinal Gastrointestinal: Denies abdominal pain, Denies diarrhea, Denies nausea, Denies vomiting - Genitourinary (Female) Genitourinary: Denies dysuria, Denies hematuria - Genitourinary (Male) Genitourinary: Denies dysuria, Denies hematuria - Musculoskeletal Musculoskeletal: Denies myalgias - Integumentary Integumentary: Denies pruritus, Denies rash - Neurological Neurological: Denies numbness, Denies weakness - Psychiatric Psychiatric: Denies anxiety, Denies depression - Endocrine Endocrine: Denies fatigue, Denies weight change Past Medical History Past Medical History: Atrial Fibrillation, Cancer, Hyperlipidemia, Myocardial Infarction (CT), Thyroid Disorder Additional Past Medical History / Comment(s): CABG (2011)., ,HODGIN LYMPHOMA (SPLEENECTOMY, RADIATION & CHEMO [place] 9846-2749).,PROSTATE CANCER (JUN 2020). Last Myocardial Infarction Date:: 2011 History of Any Multi-Drug Resistant Organisms: None Reported Past Surgical History: Coronary Bypass/CABG, Heart Catheterization, Joint Replacement, Orthopedic Surgery Additional Past Surgical History / Comment(s): SPLEENECTOMY ., TOTAL LEFT HIP (2004) Past Anesthesia/Blood Transfusion Reactions: No Reported Reaction Past Psychological History: No Psychological Hx Reported Smoking Status: Never smoker Past Alcohol Use History: None Reported Past Drug Use History: None Reported - Past Family History Sister(s) Family Medical History: Cancer Additional Family Medical History / Comment(s): OVARIAN CANCER family Family Medical History: Coronary Artery Disease (CAD) Medications and Allergies Home Medications Medication Instructions Recorded Confirmed Type Aspirin [Adult Low Dose Aspirin EC] 81 mg PO BID 07/12/17 11/02/20 History Atorvastatin Calcium [Lipitor] 80 mg PO HS 07/12/17 11/02/20 History Levothyroxine Sodium [Synthroid] 100 mcg PO DAILY 07/12/17 11/02/20 History Benazepril [Lotensin] 5 mg PO DAILY 02/04/20 11/02/20 History Furosemide [Lasix] 20 mg PO DAILY 02/04/20 11/02/20 History Metoprolol Succinate (ER) [Toprol 50 mg PO DAILY 02/04/20 11/02/20 History Xl] Spironolactone [Aldactone] 25 mg PO DAILY 02/04/20 11/02/20 History Flomax -New Script 1 dose PO DIRECTED 11/02/20 History Allergies Allergy/AdvReac Type Severity Reaction Status Date / Time bee venom protein (honey bee) AdvReac Severe Rash/Hives Verified 11/02/20 14:35 Surgical - Exam - General well developed, well nourished, no distress - Eyes PERRL - ENT no hearing loss - Neck trachea midline - Respiratory normal expansion, normal respiratory effort - Cardiovascular Rhythm: regular - Abdomen Abdomen: soft, non tender - Genitourinary normal penis with no external lesions, testicles present - Integumentary no rash, no growths - Neurologic normal coordination, normal sensation - Musculoskeletal normal gait, normal posture - Psychiatric oriented to time, oriented to person, oriented to place, speech is normal, memory intact Assessment and Plan Assessment: Impression: Prostate cancer Plan SPACEOAR gel placement.
[2020-11-05 08:52] VITALS: TEMP 97.7
[2020-11-05] MEDS ORDERED: ONDANSETRON 4 MG/2 ML VIAL ONE (08:57)
[2020-11-05] MEDS ORDERED: LACTATED RINGERS 1,000 ML IV ONE (09:12)
[2020-11-05] MEDS ORDERED: DEXAMETHASONE SOD PHOSPHATE 4 MG/ML 1 ML VIAL IV ONE (09:12)
[2020-11-05] MEDS ORDERED: LIDOCAINE 1% (10MG/ML) FOR IV START INTRADERMA ONE (09:12)
[2020-11-05] MEDS ORDERED: ONDANSETRON 4 MG/2 ML VIAL IVP ONE (09:13)
[2020-11-05] MEDS ORDERED: KETAMINE 10 MG/ML 20 ML VIAL ONE (09:47)
[2020-11-05] MEDS ORDERED: PROPOFOL 10 MG/ML 20 ML VIAL IV ONE (09:47)
[2020-11-05] MEDS ORDERED: MIDAZOLAM 2 MG/2 ML VIAL ONE (09:47)
[2020-11-05] MEDS ORDERED: PHENYLEPHRINE-0.9% NACL SYG 1,000 MCG/10 ML SYRINGE ONE (09:47)
[2020-11-05] MEDS ORDERED: fentaNYL (PF) 50 MCG/ML 2 ML AMP ONE (09:47)
[2020-11-05] MEDS ORDERED: LIDOCAINE 2% (PF) 20 MG/ML 5 ML VIAL SQ ONE (10:09)
--- NOTE | 2020-11-05 10:31 | P.OP ---
Date of Procedure: 11/05/20 Preoperative Diagnosis: Adenocarcinoma the prostate Postoperative Diagnosis: Same Procedure(s) Performed: SpaceOAR Implant Anesthesia: MAC Surgeon: Les Aj Estimated Blood Loss (ml): 0 IV fluids (ml): 200 Pathology: none sent Condition: stable Disposition: PACU Indications for Procedure: The patient is a 70-year-old white male with recently diagnosed prostate cancer. He has chosen to be treated with I am RT and androgen deprivation therapy. He now comes for SpaceOAR implant to decrease the likelihood of rectal toxicity. Operative Findings: Excellent separation of prostate and rectum achieved. Description of Procedure: The patient was taken to the operating room and placed in the dorsolithotomy position, with his legs supported in Ernie stirrups. The external genitalia was prepped and draped sterilely. The Bruel and Kjaer transrectal ultrasound probe was placed intrarectally. The prostate was imaged. The probe was then placed within the stabilizing stand. A spinal needle was advanced under ultrasonic guidance to the level of the urogenital diaphragm, and lidocaine was used to infiltrate the tissues as the needle was withdrawn. Next, the SpaceOAR needle was passed through the midline of the perineum, 1-2 cm anterior to the anal opening. The needle was slowly advanced under ultrasonic guidance until the needle tip was located within the fat plane between the prostate and rectum, at the level of the mid prostate gland. The needle was confirmed to be midline on the axial imaging. A small amount of normal saline was injected for hydrodissection. Next, the SpaceOAR components were mixed and loaded into the Y connector per protocol. The Y connector was then connected to the needle, and the components were injected slowly over a course of approximately 12 seconds. A total of 10 ml was injected. Significant distance was created between the prostate and rectum, as desired. It should be noted that at no point was there any concern of rectal perforation. The needle was withdrawn, as well as the transrectal ultrasound probe, and the procedure was terminated. The patient tolerated the procedure well and was taken to the recovery room in stable condi tion.
[2020-11-05 11:23] VITALS: BP 111/74; PULSE 70; RESP 18
== END 2020-11-05 11:40 | disposition home or self-care (01) ==
LOC: OR 08:28
PROVIDERS: ATTEND Urology
DX: C61 Malignant neoplasm of prostate (principal); I48.91 Unspecified atrial fibrillation; I25.2 Old myocardial infarction; I25.10 Atherosclerotic heart disease of native coronary artery without angina pectoris; E78.5 Hyperlipidemia, unspecified; E03.9 Hypothyroidism, unspecified; Z79.82 Long term (current) use of aspirin; Z79.890 Hormone replacement therapy; Z79.899 Other long term (current) drug therapy; Z85.71 Personal history of Hodgkin lymphoma; Z80.41 Family history of malignant neoplasm of ovary; Z82.49 Family history of ischemic heart disease and other diseases of the circulatory system; Z91.030 Bee allergy status; Z95.1 Presence of aortocoronary bypass graft
CPT/HCPCS: 55874; C1889; J2250; J1100; J0690; J2405; J3010; J2370; J2704; J2001

== ENCOUNTER → 2021-01-22 | Outpatient (CLI) | payer MEDICARE, BC | END | disposition home or self-care (01) | LOC: LABWHC1 11:52 | PROVIDERS: ATTEND Radiology Radiation Oncology | DX: C61 Malignant neoplasm of prostate (principal); Z79.818 Long term (current) use of other agents affecting estrogen receptors and estrogen levels; Z85.71 Personal history of Hodgkin lymphoma | CPT/HCPCS: 36415; 84153 ==

== ENCOUNTER → 2021-06-11 | Outpatient (CLI) | payer MEDICARE, BC ==
[2021-06-12 00:39] LABS: % Iron Saturation 8.29 (15.00-50.00)
== END | disposition home or self-care (01) ==
LOC: LABWHC1 11:14
PROVIDERS: ATTEND Internal Medicine
DX: D64.9 Anemia, unspecified (principal)
CPT/HCPCS: 36415; 82728; 83540; 83550

== ENCOUNTER → 2021-06-11 | Outpatient (CLI) | payer MEDICARE, BC ==
[2021-06-11 12:07] LABS: HCT 38.5 % (39.0-53.0); HGB 12.5 gm/dL (13.0-17.5); MCH 29.5 pg (25.0-35.0); MCHC 32.4 g/dL (31.0-37.0); Platelet Count 270 k/uL (150-450); RBC 4.23 m/uL (4.30-5.90); RDW 14.5 % (11.5-15.5)
[2021-06-11 12:22] LABS: Potassium 4.7 mmol/L (3.5-5.1)
== END | disposition home or self-care (01) ==
LOC: LABPAT 11:12
PROVIDERS: ATTEND Internal Medicine Clinical Cardiac Electrophysiology
DX: Z01.812 Encounter for preprocedural laboratory examination (principal); I34.0 Nonrheumatic mitral (valve) insufficiency
CPT/HCPCS: 80051; 82565; 84520; 85027; 36415; U0003; C9803; U0005

== ENCOUNTER → 2021-06-24 | Day surgery (SDC) | payer MEDICARE, BC ==
[2021-06-17 10:34] VITALS: BMI 21.8
[~2021-06-24] MED LIST: ALPRAZolam 0.25 MG TAB PO PRN; ALPRAZolam 0.5 MG TAB PO PRN; ASPIRIN 325 MG TAB PO STA; HEPARIN SODIUM 1,000 UN/ML (10ML VL) ONE; HEPARIN SODIUM,PORCINE 10,000 UNIT in SODIUM CHLORIDE 0.9% 1,000 ML IRRIGATION PRN; HEPARIN SODIUM,PORCINE 2,500 UNIT in SODIUM CHLORIDE 0.9% 250 ML IRRIGATION PRN; IOPAMIDOL-370 100ML BTL INJ ONE; IOPAMIDOL-370 125ML BTL INJ ONE; LIDOCAINE 1% INJ 10MG/ML (20 ML MDV) ONE; LIDOCAINE 1% INJ 10MG/ML (20 ML MDV) SQ ONE; MIDAZOLAM 2 MG/2 ML VIAL IV ONE; NITROGLYCERIN SL TABS 0.4 MG TAB SUBLINGUAL PRN; RX INFO: IV CONTRAST WAS GIVEN 1 EACH MISC MISCELLANE PRN; SODIUM CHLORIDE 0.9% 1,000 ML IV ONE; SODIUM CHLORIDE 0.9% 1,000 ML IV SCH; SODIUM CHLORIDE 0.9% 1,000 ML in EMPTY BAG 1 BAG IV SCH; VERAPAMIL 2.5 MG/ML 2 ML AMP ONE; VERAPAMIL SYRINGE (5 MG/10 ML) INTRAARTER ONE; fentaNYL (PF) 50 MCG/ML 2 ML AMP IV ONE; fentaNYL (PF) 50 MCG/ML 2 ML AMP ONE
[2021-06-24 06:51] VITALS: RESP 16; TEMP 98.5
--- NOTE | 2021-06-24 13:10 | P.CARDCATH ---
Description of Procedure: PROCEDURES PERFORMED: Left heart catheterization, bilateral coronary angiography, aortic root angiogram, GOMEZ to LAD angiography, SVG to left posterior descending angiography INDICATION: Cardiomyopathy HISTORY: Patient is a pleasant 62-year-old male with a history of CAD status post CABG 2011 with GOMEZ to LAD, SVG to the diagonal, SVG to OM1, SVG to OM 2, SVG to left PDA who has been doing fairly well however was noted to have decrease in ejection fraction from 40% down to 35%. He does have some atypical shortness breath which occurs off and on. Given new decrease in ejection fraction heart catheterization was recommended. CONSENT:I have discussed the risks, benefits and alternative therapies for the above-mentioned procedure and for both sedation/analgesia as well as necessary blood product administration, if indicated, as they pertain to this patient. The patient has indicated understanding and acceptance of the risks and procedures discussed. PROCEDURE: After the risks, benefits and alternatives of the above mentioned procedure explained in detail with the patient, informed consent was obtained. Patient was taken to the catheterization lab and prepped and draped in usual fashion. 1% lidocaine was used to anesthetize the left radial artery. A 6- [place]an sheath was placed in the left radial artery using modified Seldinger technique. Left coronary angiography was performed with a 5-Ch[place]an JL 4.0 catheter and right coronary angiography was performed with a 5-Ch[place]an JR4 catheter in various views. A 5-[place]an pigtail catheter was inserted into the left ventricle and pressure measurements were obtained. An aortic root angiogram was performed in the TURKISH position with a pigtail catheter. Next GOMEZ to LAD and SVG to left PDA angiography was performed with a 5-[place] JL 4.0 catheter. The left radial sheath was removed and a TR band was placed with hemostasis achieved. The patient tolerated the procedure well. Patient was transported back to the post catheterization holding area in stable condition. Conscious Sedation: Patient was monitored under the direct supervision of vision of myself for conscious sedation using Versed and fentanyl for a total duration of 40 minutes HEMODYNAMICS: Aortic: 92/76 LV: 94/4, LVEDP 14 SELECTIVE CORONARY ARTERIOGRAPHY: LEFT MAIN: The left main is a large caliber vessel which bifurcates into the LAD and circumflex. There is proximal and mid 20-30% left main stenosis. LEFT ANTERIOR DESCENDING CORONARY ARTERY: LAD is a large caliber vessel which wraps around to the apex. There is a proximal 30% LAD stenosis followed by a tandem 90% on 100% mid LAD stenosis. LEFT CIRCUMFLEX CORONARY ARTERY: Left circumflex is a moderate caliber vessel which supplies the PDA and is the dominant vessel. OM1 and OM2 are small caliber and each have a 30-40% ostial stenosis. There is no competitive flow with SVG. After onto there is a 50-60% long circumflex stenosis. There is competitive flow in the PDA noted. RIGHT CORONARY ARTERY: The right coronary artery is a small caliber vessel which gives off an acute marginal branch and is nondominant. There is a mid 60% RCA stenosis. GOMEZ to LAD: Widely patent. The distal LAD supplies collaterals to a small caliber diagonal 2 branch SVG to diagonal: Occluded SVG to OM1: Occluded SVG to OM 2: Occluded SVG to left PDA widely patent Aortic angiogram: There is no aortic aneurysm. The only patent saphenous vein graft noted is the SVG to left PDA. There is 2-3+ aortic insufficiency which may be catheter induced. FINAL IMPRESSION: 1. [place] CAD as described above including 20-30% left main, 100% mid LAD, 50- 60% mid circumflex, 40% ostial OM1, 40% ostial OM 2, 60% small caliber RCA stenosis. 2. Occluded SVG to OM1, SVG to OM 2 and SVG to diagonal 3. Patent GOMEZ to LAD, patent SVG to left PDA 4. Normal left-sided filling pressures PLAN: 1. Aggressive risk factor modification per most recent ACC/AHA guidelines. 2. Given patient is fairly asymptomatic without any significant angina and mid circumflex disease appears to be only 50-60% with additional patent SVG to PDA, there does not appear to be any obstructive non grafted lesions. Therefore would recommend continued medical therapy. 3. Follow-up in the office in 1-2 weeks.
[2021-06-24 13:14] VITALS: BP 99/53; PULSE 73
== END ==
LOC: CATHCVL 06:14
PROVIDERS: ATTEND Internal Medicine
DX: I25.10 Atherosclerotic heart disease of native coronary artery without angina pectoris (principal); I25.810 Atherosclerosis of coronary artery bypass graft(s) without angina pectoris; I42.9 Cardiomyopathy, unspecified; E78.5 Hyperlipidemia, unspecified; Z20.822 Contact with and (suspected) exposure to COVID-19; R93.1 Abnormal findings on diagnostic imaging of heart and coronary circulation; Z82.49 Family history of ischemic heart disease and other diseases of the circulatory system; Z88.5 Allergy status to narcotic agent
CPT/HCPCS: 93459; 93567; 87635; C1894; C1769; J2250; J2001; J3010; J1644; Q9967 ×2

== ENCOUNTER → 2021-08-31 | Outpatient (CLI) | payer MEDICARE, BC | END | disposition home or self-care (01) | LOC: LABWHC1 10:48 | PROVIDERS: ATTEND Radiology Radiation Oncology | DX: C61 Malignant neoplasm of prostate (principal); Z79.818 Long term (current) use of other agents affecting estrogen receptors and estrogen levels; Z85.71 Personal history of Hodgkin lymphoma | CPT/HCPCS: 36415; 84153 ==

== ENCOUNTER → 2022-02-07 | Outpatient (CLI) | payer MEDICARE, BC | END | disposition home or self-care (01) | LOC: LABWHC1 10:37 | PROVIDERS: ATTEND Urology | DX: C61 Malignant neoplasm of prostate (principal) | CPT/HCPCS: 36415; 84153 ==

== ENCOUNTER → 2023-05-12 | Outpatient (CLI) | payer MEDICARE, BC | END | disposition home or self-care (01) | LOC: LABWHC1 09:49 | PROVIDERS: ATTEND Urology | DX: C61 Malignant neoplasm of prostate (principal) | CPT/HCPCS: 36415; 84153 ==

== ENCOUNTER 2023-07-24 07:50 | Emergency (ER) | payer MEDICARE, BC ==
[2023-07-24] MEDS: SODIUM CHLORIDE 0.9% 500 ML 500 ML IV STA (08:08)
[2023-07-24 08:13] VITALS: TEMP 96.8
[2023-07-24 08:23] LABS: Basophils % (A) 0 %; Eosinophils # (A) 0.1 k/uL (0-0.7); Eosinophils % (A) 1 %; HCT 42.4 % (39.0-53.0); HGB 14.1 gm/dL (13.0-17.5); Lymphocytes # (A) 1.7 k/uL (1.0-4.8); Lymphocytes % (A) 17 %; MCH 30.3 pg (25.0-35.0); MCHC 33.3 g/dL (31.0-37.0); MCV 91.1 fL (80.0-100.0); Mean Platelet Volume 7.3; Monocytes # (A) 0.7 k/uL (0-1.0); Monocytes % (A) 7 %; Neutrophils # (A) 7.7 k/uL (1.3-7.7); Neutrophils % (A) 74 %; Platelet Count 329 k/uL (150-450); RBC 4.66 m/uL (4.30-5.90); RDW 12.8 % (11.5-15.5); WBC 10.5 k/uL (3.8-10.6)
[2023-07-24 08:38] LABS: ALT 20 U/L (4-49); AST 31 U/L (17-59); African American GFR (CKD) >90 (>60 ml/min/1.73 sqM); Albumin 3.8 g/dL (3.5-5.0); Alkaline Phosphatase 124 U/L (38-126); Anion Gap 10 mmol/L; Blood Urea Nitrogen 17 mg/dL (9-20); Calcium 9.2 mg/dL (8.4-10.2); Carbon Dioxide 24 mmol/L (22-30); Chloride 98 mmol/L (98-107); Glucose 115 mg/dL (74-99); Lipase 96 U/L (23-300); Non-African American GFR(CKD) 82 (>60 ml/min/1.73 sqM); Potassium 4.4 mmol/L (3.5-5.1); Sodium 132 mmol/L (137-145); Total Protein 6.9 g/dL (6.3-8.2)
--- NOTE | 2023-07-24 09:11 | ED ---
Abdominal Pain HPI - General Chief Complaint: Abdominal Pain Stated Complaint: abd pain Time Seen by Provider: 07/24/23 07:56 Source: patient, RN notes reviewed Mode of arrival: ambulatory Limitations: no limitations - History of Present Illness Initial Comments: 72-year-old male presents emergency department complaint of abdominal pain. He states he been having increasing pain over the last couple weeks but states pain significant worsened last couple days. Patient states it is. Diffuse pain. 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 He has also had 5 way bypass surgery. Patient denies chest pain or shortness of breath no fevers or chills. - Related Data Home Medications Medication Instructions Recorded Confirmed Aspirin [Adult Low Dose Aspirin EC] 162 mg PO DAILY 07/12/17 07/24/23 Levothyroxine Sodium [Synthroid] 100 mcg PO DAILY 07/12/17 07/24/23 Benazepril [Lotensin] 5 mg PO HS 02/04/20 07/24/23 Metoprolol Succinate (ER) [Toprol 50 mg PO BID 02/04/20 07/24/23 Xl] Tamsulosin [Flomax] 0.4 mg PO HS 11/02/20 07/24/23 Atorvastatin [Lipitor] 40 mg PO HS 06/11/21 07/24/23 Spironolactone [Aldactone] 50 mg PO DAILY 07/24/23 07/24/23 Previous Rx's Medication Instructions Recorded Amoxic-Pot Clav 875-125Mg 1 tab PO Q12HR #20 tab 07/24/23 [Augmentin 875-125] Allergies Allergy/AdvReac Type Severity Reaction Status Date / Time bee venom protein (honey bee) AdvReac Severe Rash/Hives Verified 07/24/23 12:10 Review of Systems ROS Statement: Those systems with pertinent positive or pertinent negative responses have been documented in the HPI. ROS Other: All systems not noted in ROS Statement are negative. Past Medical History Past Medical History: Atrial Fibrillation, Cancer, Hyperlipidemia, Myocardial Infarction (VT), Thyroid Disorder Additional Past Medical History / Comment(s): [facility] LYMPHOMA RADIATION & CHEMO [place] [phone]), PROSTATE CANCER (JUN 2020). Last Myocardial Infarction Date:: 2011 History of Any Multi-Drug Resistant Organisms: None Reported Past Surgical History: Coronary Bypass/CABG, Heart Catheterization, Joint Replacement, Orthopedic Surgery Additional Past Surgical History / Comment(s): SPLEENECTOMY, TOTAL LEFT HIP (2004) Past Anesthesia/Blood Transfusion Reactions: No Reported Reaction Past Psychological History: No Psychological Hx Reported Smoking Status: Never smoker - Past Family History Sister(s) Family Medical History: Cancer Additional Family Medical History / Comment(s): OVARIAN CANCER family Family Medical History: Coronary Artery Disease (CAD) General Exam Limitations: no limitations General appearance: alert, in no apparent distress Head exam: Present: atraumatic, normocephalic, normal inspection Eye exam: Present: normal appearance, PERRL, EOMI. Absent: scleral icterus, conjunctival injection, periorbital swelling ENT exam: Present: normal exam, normal oropharynx, mucous membranes moist Neck exam: Present: normal inspection, full ROM. Absent: tenderness, meningismus, lymphadenopathy Respiratory exam: Present: normal lung sounds bilaterally. Absent: respiratory distress, wheezes, rales, rhonchi, stridor Cardiovascular Exam: Present: regular rate, normal rhythm, normal heart sounds. Absent: systolic murmur, diastolic murmur, rubs, gallop, clicks GI/Abdominal exam: Present: soft, tenderness, normal bowel sounds. Absent: distended, guarding, rebound, rigid Back exam: Absent: CVA tenderness (R), CVA tenderness (L) Neurological exam: Present: alert, oriented X3 Skin exam: Present: warm, dry, intact, normal color. Absent: rash Course Vital Signs 07/24/23 07/24/23 07:53 12:01 Temperature 96.8 F L Pulse Rate 96 73 Respiratory 16 18 Rate Blood Pressure 131/71 109/59 O2 Sat by Pulse 99 98 Oximetry Medical Decision Making - Medical Decision Making Was pt. sent in by a medical professional or institution (, PA, BED LASTER, urgent care, hospital, or custodial...) When possible be specific @ -No Did you speak to anyone other than the patient for history (EMS, parent, family, police, friend...)? What history was obtained from this source @ -No Did you review nursing and triage notes (agree or disagree)? Why? @ -I reviewed and agree with nursing and triage notes Were old charts reviewed (outside hosp., previous admission, EMS record, old EKG, old radiological studies, urgent care reports/EKG's, custodial records)? Report findings @ -No old charts were reviewed Differential Diagnosis (chest pain, altered mental status, abdominal pain women, abdominal pain men, vaginal bleeding, weakness, fever, dyspnea, syncope, headache, dizziness, GI bleed, back pain, seizure, CVA, palpatations, mental health, musculoskeletal)? @ -[Differential Abdominal Pain Men: Appendicitis, cholecystitis, diverticulosis, ischemic bowel, pancreatitis, hepatitis, UTI, gastroenteritis, AAA, incarcerated hernia, bowel obstruction, constipation, inflammatory bowel, hepatitis, peptic ulcer disease, splenic infarction, perforated viscus, testicular torsion, this is not meant to be an all-inclusive list EKG interpreted by me (3pts min.). @ -None X-rays interpreted by me (1pt min.). @ -[None done CT interpreted by me (1pt min.). @ -[CT abdomen pelvis shows some mild changes of the pancreatic head, prior postsurgical changes, mild colitis U/S interpreted by me (1pt. min.). @ -None done What testing was considered but not performed or refused? (CT, X-rays, U/S, labs)? Why? @ -None What meds were considered but not given or refused? Why? @ -None Did you discuss the management of the patient with other professionals (professionals i.e. , PA, BED LASTER, lab, RT, psych nurse, social sciences lecturer, polysomnography technician, teacher, weapons electrical engineering officer, vocational case manager)? Give summary @ -No Was smoking cessation discussed for >3mins.? @ -No Was critical care preformed (if so, how long)? @ -No Were there social determinants of health that impacted care today? How? (Homelessness, low income, unemployed, alcoholism, drug addiction, transportation, low edu. Level, literacy, decrease access to med. care, fdc, rehab)? @ -No Was there de-escalation of care discussed even if they declined (Discuss DNR or withdrawal of care, Hospice)? DNR status @ -No What co-morbidities impacted this encounter? (DM, HTN, Smoking, COPD, CAD, Cancer, CVA, ARF, Chemo, Hep., AIDS, mental health diagnosis, sleep apnea, morbid obesity)? @ -None Was patient admitted / discharged? Hospital course, mention meds given and route, prescriptions, significant lab abnormalities, going to OR and other pertinent info. @ -[Did charge patient was updated on laboratory studies, CT. Patient recommended the need to follow-up for his pancreatic changes, possible colonoscopy states he has been trying to get a colonoscopy for several months but nobody calls him back. GI appointment was made for tomorrow morning. [place] will be discharged stable condition with close follow-up return. Discussed Undiagnosed new problem with uncertain prognosis? @ -No Drug Therapy requiring intensive monitoring for toxicity (Heparin, Nitro, Insulin, Cardizem)? @ -No Were any procedures done? @ -No Diagnosis/symptom? @ -[Abdominal pain, colitis, pancreatic abnormality Acute, or Chronic, or Acute on Chronic? @ -Acute Uncomplicated (without systemic symptoms) or Complicated (systemic symptoms)? @ -[Uncomplicated Side effects of treatment? @ -[No Exacerbation, Progression, or Severe Exacerbation? @ -No Poses a threat to life or bodily function? How? (Chest pain, USA, VT, pneumonia, PE, COPD, DKA, ARF, appy, cholecystitis, CVA, Diverticulitis, Homicidal, Suicidal, threat to staff... and all critical care pts) @ -No - Lab Data Result diagrams: 07/24/23 08:16 07/24/23 08:16 Lab Results 07/24/23 07/24/23 07/24/23 Range/Units 08:16 08:16 08:16 WBC 10.5 (3.8-10.6) k/uL RBC 4.66 (4.30-5.90) m/uL Hgb 14.1 (13.0-17.5) gm/dL Hct 42.4 (39.0-53.0) % MCV 91.1 (80.0-100.0) fL MCH 30.3 (25.0-35.0) pg MCHC 33.3 (31.0-37.0) g/dL RDW 12.8 (11.5-15.5) % Plt Count 329 (150-450) k/uL MPV 7.3 Neutrophils % 74 % Lymphocytes % 17 % Monocytes % 7 % Eosinophils % 1 % Basophils % 0 % Neutrophils # 7.7 (1.3-7.7) k/uL Lymphocytes # 1.7 (1.0-4.8) k/uL Monocytes # 0.7 (0-1.0) k/uL Eosinophils # 0.1 (0-0.7) k/uL Basophils # 0.0 (0-0.2) k/uL Sodium 132 L (137-145) mmol/L Potassium 4.4 (3.5-5.1) mmol/L Chloride 98 (98-107) mmol/L Carbon Dioxide 24 (22-30) mmol/L Anion Gap 10 mmol/L BUN 17 (9-20) mg/dL Creatinine 0.94 (0.66-1.25) mg/dL Est GFR (CKD-EPI)AfAm >90 (>60 ml/min/1.73 sqM) Est GFR (CKD-EPI)NonAf 82 (>60 ml/min/1.73 sqM) Glucose 115 H (74-99) mg/dL Plasma Lactic Acid Vicente 1.5 (0.7-2.0) mmol/L Calcium 9.2 (8.4-10.2) mg/dL Total Bilirubin 1.0 (0.2-1.3) mg/dL AST 31 (17-59) U/L ALT 20 (4-49) U/L Alkaline Phosphatase 124 (38-126) U/L Total Protein 6.9 (6.3-8.2) g/dL Albumin 3.8 (3.5-5.0) g/dL Lipase 96 (23-300) U/L Disposition Clinical Impression: Colitis, Pancreatic abnormality, Abdominal pain Disposition: HOME SELF-CARE Condition: Stable Instructions (If sedation given, give patient instructions): Abdominal Pain (ED) Additional Instructions: Please go to your GI appointment tomorrow as directed. Please return to the Emergency Department if symptoms worsen or any other concerns. Prescriptions: Amoxic-Pot Clav 875-125Mg [Augmentin 875-125] 1 tab PO Q12HR #20 tab Is patient prescribed a controlled substance at d/c from ED?: No Referrals: Pat Torres NPC [REFERRING] - 07/25/23 8:00 am (Please bring insurance and ID cards. You will be required to complete new patient paperwork also. ) Roberto Cortez MD [Primary Care Provider] - 1-2 days Time of Disposition: 11:53
--- NOTE | 2023-07-24 09:45 | CT ---
EXAMINATION TYPE: CT abdomen pelvis w con CT DLP: 651.3 mGycm, Automated exposure control for dose reduction was used. DATE OF EXAM: 07/24/2023 9:23 AM COMPARISON: CT abdomen pelvis most recent from 01/26/2020 . CLINICAL INDICATION:Male, 72 years old with history of abdominal pain, hx prostate CA, NHL; Abdominal pain, History of prostate cancer, NHL TECHNIQUE: Standard CT of the abdomen and pelvis following the administration of 100 cc of Isovue 3 00 IV contrast material. Coronal and sagittal reformats were performed. FINDINGS: LOWER CHEST: Small right pleural effusion. Cardiac pacemaker leads identified. ABDOMEN LIVER: There are 2 subcentimeter cysts within the right hepatic lobe. GALLBLADDER AND BILE DUCTS: Unremarkable. PANCREAS: Posttreatment changes in the region of the pancreatic head. No sizable soft tissue within t he pancreatic head. There is mild beaded pancreatic duct dilatation within the body and tail of the p ancreas which is slightly increased from prior examination. SPLEEN: Remnant splenic tissue identified in the left upper quadrant. ADRENAL GLANDS: Unremarkable. KIDNEYS AND URETERS: No evidence of hydronephrosis or renal calculus. The ureters are unremarkable. PELVIS BLADDER: Partially obscured due to streak artifact from hip prosthesis. REPRODUCTIVE: Partially obscured due to streak artifact from hip prosthesis. ABDOMEN & PELVIS STOMACH AND BOWEL: Circumferential wall thickening identified within the splenic flexure. No evidence of bowel obstruction. PERITONEUM/RETROPERITONEUM: No evidence of pneumoperitoneum. Small volume ascites throughout the abdo men and pelvis. Few surgical clips identified within the retroperitoneum adjacent to the common iliac artery. VASCULATURE: Mild atherosclerotic calcifications are present throughout the abdominal aorta and its b ranches. No evidence of aortic aneurysm. MUSCULOSKELETAL: No acute osseous abnormalities. Postsurgical changes from a left hip arthroplasty. N o aggressive osseous lesions. LYMPH NODES: No evidence for lymphadenopathy. SOFT TISSUE/ABDOMINAL WALL: Postsurgical changes along the left anterior abdominal wall. IMPRESSION: 1. Posttreatment changes of the pancreas with marginal increase in size of pancreatic duct within th e body and tail of the pancreas. No definitive abnormal soft tissue within the pancreatic head. 2. Small amount ascites throughout the abdomen and pelvis. 3. Circumferential wall thickening of the colonic splenic flexure which may be due to infectious/infl ammatory processes versus underdistention in the appropriate clinical setting. 4. Small right pleural effusion.
[2023-07-24 12:27] VITALS: BP 109/59; PULSE 73; RESP 18
== END 2023-07-24 12:02 | disposition home or self-care (01) ==
LOC: EC 07:50
DX: K52.9 Noninfective gastroenteritis and colitis, unspecified (principal); K86.9 Disease of pancreas, unspecified; I25.2 Old myocardial infarction; E07.9 Disorder of thyroid, unspecified; E78.5 Hyperlipidemia, unspecified; Z79.82 Long term (current) use of aspirin; Z79.890 Hormone replacement therapy; Z79.899 Other long term (current) drug therapy; Z91.030 Bee allergy status; Z85.46 Personal history of malignant neoplasm of prostate; Z85.72 Personal history of non-Hodgkin lymphomas; Z95.1 Presence of aortocoronary bypass graft
CPT/HCPCS: 99284 ×2; 96360 ×2; 36415; 80053; 83605; 83690; 85025; 74177; Q9967

== ENCOUNTER 2023-07-28 10:22 | Emergency (ER) | payer MEDICARE, BC ==
[2023-07-28 10:42] VITALS: TEMP 97.4
[2023-07-28] MEDS ORDERED: DICYCLOMINE 10 MG/ML 2 ML AMP IM STA (10:58)
[2023-07-28] MEDS ORDERED: FAMOTIDINE 20 MG/2 ML VIAL IV STA (10:58)
[2023-07-28] MEDS ORDERED: ONDANSETRON 4 MG/2 ML VIAL IVP STA (10:58)
[2023-07-28] MEDS ORDERED: SODIUM CHLORIDE 0.9% 1,000 ML IV STA (10:58)
--- NOTE | 2023-07-28 11:00 | ED ---
General Adult HPI - General Chief complaint: Abdominal Pain Stated complaint: ABD Pain Time Seen by Provider: 07/28/23 10:46 Source: patient, RN notes reviewed Mode of arrival: ambulatory Limitations: no limitations - History of Present Illness Initial comments: Patient is a pleasant 72-year-old male presenting to the emergency department with concerns with abdominal discomfort and diarrhea. Onset of symptoms was a few weeks ago. Patient was seen several days ago and started on amoxicillin. Patient is having associated diarrhea with amoxicillin, approximately 3-4 times a day since he started it. Patient attributes this to the antibiotic itself. Patient does have decreased oral intake. Patient feels every time he eats his discomfort increases. Patient requests IV fluids. - Related Data Home Medications Medication Instructions Recorded Confirmed Aspirin [Adult Low Dose Aspirin EC] 162 mg PO DAILY 07/12/17 07/24/23 Levothyroxine Sodium [Synthroid] 100 mcg PO DAILY 07/12/17 07/24/23 Benazepril [Lotensin] 5 mg PO HS 02/04/20 07/24/23 Metoprolol Succinate (ER) [Toprol 50 mg PO BID 02/04/20 07/24/23 Xl] Tamsulosin [Flomax] 0.4 mg PO HS 11/02/20 07/24/23 Atorvastatin [Lipitor] 40 mg PO HS 06/11/21 07/24/23 Spironolactone [Aldactone] 50 mg PO DAILY 07/24/23 07/24/23 Previous Rx's Medication Instructions Recorded Amoxic-Pot Clav 875-125Mg 1 tab PO Q12HR #20 tab 07/24/23 [Augmentin 875-125] Dicyclomine [Bentyl] 20 mg PO QID PRN #15 tablet 07/28/23 Famotidine [Pepcid] 20 mg PO BID #30 tablet 07/28/23 Allergies Allergy/AdvReac Type Severity Reaction Status Date / Time bee venom protein (honey bee) AdvReac Severe Rash/Hives Verified 07/28/23 10:35 Review of Systems ROS Statement: Those systems with pertinent positive or pertinent negative responses have been documented in the HPI. ROS Other: All systems not noted in ROS Statement are negative. Constitutional: Denies: fever Eyes: Denies: eye pain Cardiovascular: Denies: chest pain Gastrointestinal: Reports: as per HPI, abdominal pain, diarrhea. Denies: vomiting, constipation Musculoskeletal: Denies: back pain Past Medical History Past Medical History: Atrial Fibrillation, Cancer, Hyperlipidemia, Myocardial Infarction (HI), Thyroid Disorder Additional Past Medical History / Comment(s): [facility] LYMPH[facility] RADIATION & CHEMO [place] [id number]), PROSTATE CANCER (JUN 2020). Last Myocardial Infarction Date:: 2011 History of Any Multi-Drug Resistant Organisms: None Reported Past Surgical History: Coronary Bypass/CABG, Heart Catheterization, Joint Replacement, Orthopedic Surgery Additional Past Surgical History / Comment(s): SPLEENECTOMY, TOTAL LEFT HIP (2004) Past Anesthesia/Blood Transfusion Reactions: No Reported Reaction Past Psychological History: No Psychological Hx Reported Smoking Status: Never smoker - Past Family History Sister(s) Family Medical History: Cancer Additional Family Medical History / Comment(s): OVARIAN CANCER family Family Medical History: Coronary Artery Disease (CAD) General Exam Limitations: no limitations General appearance: alert, in no apparent distress Head exam: Present: normocephalic Eye exam: Present: normal appearance ENT exam: Present: normal oropharynx Neck exam: Present: normal inspection Respiratory exam: Present: normal lung sounds bilaterally Cardiovascular Exam: Present: regular rate, normal rhythm GI/Abdominal exam: Present: soft, normal bowel sounds. Absent: distended, tenderness, guarding, rebound, rigid, pulsatile mass Extremities exam: Present: normal inspection Neurological exam: Present: alert Psychiatric exam: Present: normal affect, normal mood Skin exam: Present: normal color Course Vital Signs 07/28/23 07/28/23 10:33 13:15 Temperature 97.4 F L Pulse Rate 95 80 Respiratory 18 16 Rate Blood Pressure 123/69 100/56 O2 Sat by Pulse 99 100 Oximetry Medical Decision Making - Medical Decision Making Was pt. sent in by a medical professional or institution (, PA, ANTIQUE FINISHER, urgent care, hospital, or shelter...) When possible be specific @ -No Did you speak to anyone other than the patient for history (EMS, parent, family, police, friend...)? What history was obtained from this source @ -No Did you review nursing and triage notes (agree or disagree)? Why? @ -I reviewed and agree with nursing and triage notes Were old charts reviewed (outside hosp., previous admission, EMS record, old EKG, old radiological studies, urgent care reports/EKG's, shelter records)? Report findings @ -Previous CT scan reviewed Differential Diagnosis (chest pain, altered mental status, abdominal pain women, abdominal pain men, vaginal bleeding, weakness, fever, dyspnea, syncope, headache, dizziness, GI bleed, back pain, seizure, CVA, palpatations, mental health, musculoskeletal)? @ -Differential Abdominal Pain Men: Appendicitis, cholecystitis, diverticulosis, ischemic bowel, pancreatitis, hepatitis, UTI, gastroenteritis, AAA, incarcerated hernia, bowel obstruction, constipation, inflammatory bowel, hepatitis, peptic ulcer disease, splenic infarction, perforated viscus, testicular torsion, this is not meant to be an all-inclusive list EKG interpreted by me (3pts min.). @ -As above X-rays interpreted by me (1pt min.). @ -Abdominal x-ray reveals no acute abnormality CT interpreted by me (1pt min.). @ -None done U/S interpreted by me (1pt. min.). @ -None done What testing was considered but not performed or refused? (CT, X-rays, U/S, labs)? Why? @ -CT considered however no tenderness on exam and patient did have recent CT scan What meds were considered but not given or refused? Why? @ -None Did you discuss the management of the patient with other professionals (professionals i.e. , PA, ANTIQUE FINISHER, lab, RT, psych nurse, director social, wood sash and frame carpenter, teacher, animal services officer, pillowcase turner)? Give summary @ -No Was smoking cessation discussed for >3mins.? @ -No Was critical care preformed (if so, how long)? @ -No Were there social determinants of health that impacted care today? How? (Homelessness, low income, unemployed, alcoholism, drug addiction, tra nsportation, low edu. Level, literacy, decrease access to med. care, shelter, rehab)? @ -No Was there de-escalation of care discussed even if they declined (Discuss DNR or withdrawal of care, Hospice)? DNR status @ -No What co-morbidities impacted this encounter? (DM, HTN, Smoking, COPD, CAD, Cancer, CVA, ARF, Chemo, Hep., AIDS, mental health diagnosis, sleep apnea, morbid obesity)? @ -None Was patient admitted / discharged? Hospital course, mention meds given and route, prescriptions, significant lab abnormalities, going to OR and other pertinent info. @ -Patient feels much better on reevaluation. Patient denies nausea. Patient is tolerating oral intake and comfortable with discharge home. Patient does plan on stopping amoxicillin. Undiagnosed new problem with uncertain prognosis? @ -No Drug Therapy requiring intensive monitoring for toxicity (Heparin, Nitro, Insulin, Cardizem)? @ -No Were any procedures done? @ -No Diagnosis/symptom? @ -Abdominal pain, diarrhea Acute, or Chronic, or Acute on Chronic? @ -Acute, acute Uncomplicated (without systemic symptoms) or Complicated (systemic symptoms)? @ -Default Side effects of treatment? @ -No Exacerbation, Progression, or Severe Exacerbation? @ -No Poses a threat to life or bodily function? How? (Chest pain, USA, HI, pneumonia, PE, COPD, DKA, ARF, appy, cholecystitis, CVA, Diverticulitis, Homicidal, Suicidal, threat to staff... and all critical care pts) @ -No - Lab Data Result diagrams: 07/28/23 10:59 07/28/23 10:59 Lab Results 07/28/23 07/28/23 Range/Units 10:59 10:59 WBC 11.2 H (3.8-10.6) k/uL RBC 4.58 (4.30-5.90) m/uL Hgb 13.7 (13.0-17.5) gm/dL Hct 41.4 (39.0-53.0) % MCV 90.4 (80.0-100.0) fL MCH 29.9 (25.0-35.0) pg MCHC 33.0 (31.0-37.0) g/dL RDW 12.8 (11.5-15.5) % Plt Count 397 (150-450) k/uL MPV 7.3 Neutrophils % 81 % Lymphocytes % 11 % Monocytes % 6 % Eosinophils % 1 % Basophils % 0 % Neutrophils # 9.0 H (1.3-7.7) k/uL Lymphocytes # 1.3 (1.0-4.8) k/uL Monocytes # 0.6 (0-1.0) k/uL Eosinophils # 0.1 (0-0.7) k/uL Basophils # 0.0 (0-0.2) k/uL Sodium 129 L (137-145) mmol/L Potassium 4.0 (3.5-5.1) mmol/L Chloride 97 L (98-107) mmol/L Carbon Dioxide 24 (22-30) mmol/L Anion Gap 8 mmol/L BUN 8 L (9-20) mg/dL Creatinine 0.76 (0.66-1.25) mg/dL Est GFR (CKD-EPI)AfAm >90 (>60 ml/min/1.73 sqM) Est GFR (CKD-EPI)NonAf >90 (>60 ml/min/1.73 sqM) Glucose 124 H (74-99) mg/dL Calcium 9.0 (8.4-10.2) mg/dL Total Bilirubin 0.9 (0.2-1.3) mg/dL AST 33 (17-59) U/L ALT 24 (4-49) U/L Alkaline Phosphatase 120 (38-126) U/L Total Protein 6.6 (6.3-8.2) g/dL Albumin 3.5 (3.5-5.0) g/dL Amylase 51 (30-110) U/L Lipase 74 (23-300) U/L Disposition Clinical Impression: Abdominal pain Disposition: HOME SELF-CARE Condition: Stable Instructions (If sedation given, give patient instructions): Abdominal Pain (ED) Additional Instructions: Please do follow-up with your primary care physician in the next 1 or 2 days for recheck. Prescription sent to pharmacy. Return for fever, increased pain, vomiting, not tolerating oral intake, worsening symptoms or other concerns. Prescriptions: Dicyclomine [Bentyl] 20 mg PO QID PRN #15 tablet PRN Reason: Pain Famotidine [Pepcid] 20 mg PO BID #30 tablet Is patient prescribed a controlled substance at d/c from ED?: No Referrals: Roberto Cortez MD [Primary Care Provider] - 1-2 days Time of Disposition: 13:52
[2023-07-28 11:08] LABS: Basophils % (A) 0 %; Eosinophils # (A) 0.1 k/uL (0-0.7); Eosinophils % (A) 1 %; HCT 41.4 % (39.0-53.0); HGB 13.7 gm/dL (13.0-17.5); Lymphocytes # (A) 1.3 k/uL (1.0-4.8); Lymphocytes % (A) 11 %; MCH 29.9 pg (25.0-35.0); MCV 90.4 fL (80.0-100.0); Mean Platelet Volume 7.3; Monocytes # (A) 0.6 k/uL (0-1.0); Monocytes % (A) 6 %; Neutrophils % (A) 81 %; Platelet Count 397 k/uL (150-450); RBC 4.58 m/uL (4.30-5.90); RDW 12.8 % (11.5-15.5); WBC 11.2 k/uL (3.8-10.6)
[2023-07-28 11:30] LABS: ALT 24 U/L (4-49); AST 33 U/L (17-59); African American GFR (CKD) >90 (>60 ml/min/1.73 sqM); Albumin 3.5 g/dL (3.5-5.0); Alkaline Phosphatase 120 U/L (38-126); Amylase 51 U/L (30-110); Anion Gap 8 mmol/L; Blood Urea Nitrogen 8 mg/dL (9-20); Carbon Dioxide 24 mmol/L (22-30); Chloride 97 mmol/L (98-107); Glucose 124 mg/dL (74-99); Lipase 74 U/L (23-300); Non-African American GFR(CKD) >90 (>60 ml/min/1.73 sqM); Sodium 129 mmol/L (137-145); Total Bilirubin 0.9 mg/dL (0.2-1.3); Total Protein 6.6 g/dL (6.3-8.2)
--- NOTE | 2023-07-28 11:51 | XR ---
EXAMINATION TYPE: XR KUB DATE OF EXAM: 07/28/2023 11:43 AM CLINICAL INDICATION:Male, 72 years old with history of abdominal pain; COMPARISON: 07/24/2023 TECHNIQUE: One radiographic view of the abdomen was obtained. FINDINGS: The bowel gas pattern is nonspecific without dilated loops of small or large bowel. There i s no evidence for organomegaly or pneumoperitoneum. The osseous structures are intact. No abnormal calcifications are present. Fecal material and gas are demonstrated throughout the colon and rectum. Left hip arthroplasty appears intact. Scattered surgical clips and suture are identified. Sternotomy wires are present. Cardiac conduction leads present. IMPRESSION: Nonspecific bowel gas pattern without radiographic evidence for acute process.
[2023-07-28] MEDS ORDERED: ACET/COD 300 MG/30 MG STARTER PACK 6 TAB BTL PO STA (13:49)
[2023-07-28 14:10] VITALS: BP 103/64; PULSE 81; RESP 18
== END 2023-07-28 14:06 | disposition home or self-care (01) ==
LOC: EC 10:22
DX: R10.9 Unspecified abdominal pain (principal); E78.5 Hyperlipidemia, unspecified; I25.2 Old myocardial infarction; I48.91 Unspecified atrial fibrillation; E07.9 Disorder of thyroid, unspecified; Z79.82 Long term (current) use of aspirin; Z79.890 Hormone replacement therapy; Z79.899 Other long term (current) drug therapy; Z91.030 Bee allergy status
CPT/HCPCS: 36415; 80053; 82150; 83690; 85025; 74018; 99284; 96374; 96361; 96372; J0500; J3490

== ENCOUNTER 2023-08-01 05:11 | Inpatient (IN) | payer MEDICARE, BC ==
[2023-08-01 05:44] LABS: HCT 43.3 % (39.0-53.0); HGB 14.4 gm/dL (13.0-17.5); MCH 29.9 pg (25.0-35.0); MCHC 33.2 g/dL (31.0-37.0); Mean Platelet Volume 7.6; Platelet Count 423 k/uL (150-450); RBC 4.82 m/uL (4.30-5.90); WBC 5.8 k/uL (3.8-10.6)
[2023-08-01] MEDS: LEVOFLOXACIN 750MG-D5W PMX 750 MG in DEXTROSE/WATER 1 150ML.BAG IVPB STA (05:46)
[2023-08-01 05:55] LABS: ALT 27 U/L (4-49); AST 35 U/L (17-59); African American GFR (CKD) 87 (>60 ml/min/1.73 sqM); Albumin 3.4 g/dL (3.5-5.0); Alkaline Phosphatase 138 U/L (38-126); Amylase 47 U/L (30-110); Anion Gap 13 mmol/L; Blood Urea Nitrogen 19 mg/dL (9-20); Calcium 9.1 mg/dL (8.4-10.2); Carbon Dioxide 22 mmol/L (22-30); Chloride 92 mmol/L (98-107); Glucose 140 mg/dL (74-99); Lipase 73 U/L (23-300); Non-African American GFR(CKD) 75 (>60 ml/min/1.73 sqM); Potassium 4.2 mmol/L (3.5-5.1); Sodium 127 mmol/L (137-145); Total Bilirubin 1.1 mg/dL (0.2-1.3); Total Protein 6.5 g/dL (6.3-8.2)
[2023-08-01] MEDS: PIPERACILLIN-TAZOBACTAM 3.375 GM in SODIUM CHLORIDE 0.9% 100 ML IVPB STA (06:18)
[2023-08-01] MEDS: SODIUM CHLORIDE 0.9% 500 ML 500 ML IV STA (06:18)
[2023-08-01] MEDS: ACETAMINOPHEN TAB 325 MG TAB PO STA (06:19)
[2023-08-01] MEDS: SODIUM CHLORIDE 0.9% 1,000 ML IV ONE ×2 (06:41→07:28)
[2023-08-01] MEDS ORDERED: VANCOMYCIN IV PER PHARMACY 1 EACH MISC MISCELLANE PRN ×2 (07:22→11:29)
[2023-08-01 07:36] LABS: Band Neutrophils % 20 %; Eosinophils # (M) 0.06 k/uL (0-0.7); Lymphocytes # (M) 1.51 k/uL (1.0-4.8); Monocytes # (M) 0.12 k/uL (0-1.0); Neutrophils % (M) 53 %; Nucleated Red Blood Cells 0 /100 WBC (0-0); Total Cells Counted 200
[2023-08-01 07:38] LABS: Anisocytosis (M) Present; Poikilocytosis (M) Present; RBC Fragments Present
--- NOTE | 2023-08-01 08:20 | ED ---
Abdominal Pain HPI <Koko Prieto - Last Filed: 08/01/23 10:32> - General Source: patient Mode of arrival: EMS - History of Present Illness MD Complaint: abdominal pain Onset/Timin -: week(s) Location: diffuse Radiation: none Migration to: no migration Severity: moderate Quality: aching Consistency: constant Improves With: nothing Worsens With: nothing Associated Symptoms: nausea, vomiting <Reuben Cordoba - Last Filed: 08/15/23 05:48> - General Chief Complaint: Abdominal Pain Stated Complaint: abd pain Time Seen by Provider: 08/01/23 05:26 - History of Present Illness Initial Comments: This patient is a 72-year-old man who presents to have evaluation for abdominal pain. Patient states that his pain has been going on for a little over a week now. The patient was seen here on July 24 and had a workup that included CT that showed some probable colitis and the patient was started on a course of amoxicillin. After a number of days he returned this was on July 28. He at that time was complaining of diarrhea that he felt was related to being on the amoxicillin. Patient was dehydrated and he had fluids. The patient then stated he was going to stop the amoxicillin. Patient states that since that time he has continued to have diffuse, aching abdominal pain. He has had a number of episodes of nausea and vomiting at home. Patient has not noted any hematemesis or coffee-ground vomiting. He has had a few episodes of diarrhea as well without seeing any bloody or tarry stools. When the pains continued he decided to be reevaluated today. Patient is not aware of any fever or chills though he does arrive here with fever. No chest symptoms. (Reuben Cordoba) - Related Data Home Medications Medication Instructions Recorded Confirmed Aspirin [Adult Low Dose Aspirin EC] 162 mg PO DAILY 07/12/17 08/01/23 Levothyroxine Sodium [Synthroid] 100 mcg PO DAILY 07/12/17 08/01/23 Benazepril [Lotensin] 5 mg PO HS 02/04/20 08/01/23 Metoprolol Succinate (ER) [Toprol 50 mg PO BID 02/04/20 08/01/23 Xl] Tamsulosin [Flomax] 0.4 mg PO HS 11/02/20 08/01/23 Atorvastatin [Lipitor] 40 mg PO HS 06/11/21 08/01/23 Spironolactone [Aldactone] 50 mg PO DAILY 07/24/23 08/01/23 Dicyclomine [Bentyl] 20 mg PO QID PRN 08/01/23 08/01/23 Ferrous Sulfate [Feosol] 325 mg PO Q2D 08/01/23 08/01/23 Previous Rx's Medication Instructions Recorded Famotidine [Pepcid] 20 mg PO BID #30 tablet 07/28/23 Allergies Allergy/AdvReac Type Severity Reaction Status Date / Time bee venom protein (honey bee) AdvReac Severe Rash/Hives Verified 08/01/23 10:47 Review of Systems ROS Other: All systems not noted in ROS Statement are negative. <Koko Prieto - Last Filed: 08/01/23 10:32> ROS Other: All systems not noted in ROS Statement are negative. Constitutional: Reports: as per HPI. Denies: fever, chills Respiratory: Denies: cough, dyspnea, wheezes Cardiovascular: Denies: chest pain, palpitations, edema Gastrointestinal: Reports: abdominal pain, nausea, vomiting, diarrhea. Denies: constipation, hematemesis, melena, hematochezia Genitourinary: Denies: dysuria, hematuria, testicular pain, testicular mass Musculoskeletal: Denies: back pain Skin: Denies: rash Neurological: Denies: headache, weakness, numbness Hematological/Lymphatic: Denies: easy bleeding <Reuben Cordoba - Last Filed: 08/15/23 05:48> ROS Statement: Those systems with pertinent positive or pertinent negative responses have been documented in the HPI. Past Medical History Past Medical History: Atrial Fibrillation, Cancer, Hyperlipidemia, Myocardial Infarction (AL), Thyroid Disorder Additional Past Medical History / Comment(s): [facility] [place] [id number]), PROSTATE CANCER (JUN 2020). Last Myocardial Infarction Date:: 2011 History of Any Multi-Drug Resistant Organisms: None Reported Past Surgical History: Coronary Bypass/CABG, Heart Catheterization, Joint Replacement, Orthopedic Surgery Additional Past Surgical History / Comment(s): SPLEENECTOMY, TOTAL LEFT HIP (2004) Past Anesthesia/Blood Transfusion Reactions: No Reported Reaction Past Psychological History: No Psychological Hx Reported Smoking Status: Never smoker Past Alcohol Use History: None Reported Past Drug Use History: None Reported - Past Family History Sister(s) Family Medical History: Cancer Additional Family Medical History / Comment(s): OVARIAN CANCER family Family Medical History: Coronary Artery Disease (CAD) <Reuben Cordoba - Last Filed: 08/15/23 05:48> General Exam General appearance: alert, in no apparent distress Head exam: Present: atraumatic, normocephalic Eye exam: Present: normal appearance. Absent: scleral icterus, conjunctival injection ENT exam: Present: mucous membranes dry Neck exam: Present: normal inspection Respiratory exam: Present: normal lung sounds bilaterally. Absent: respiratory distress, wheezes, rales, rhonchi, stridor Cardiovascular Exam: Present: normal rhythm, tachycardia, normal heart sounds. Absent: systolic murmur, diastolic murmur, rubs, gallop GI/Abdominal exam: Present: soft, tenderness (There is mild diffuse tenderness no rebound or guarding). Absent: distended, guarding, rebound, rigid, mass, pulsatile mass, hernia Extremities exam: Present: normal inspection, normal capillary refill. Absent: pedal edema, calf tenderness Back exam: Present: normal inspection. Absent: CVA tenderness (R), CVA tenderness (L) Neurological exam: Present: alert, oriented X3 Skin exam: Present: warm, dry, intact, normal color. Absent: rash <Reuben Cordoba - Last Filed: 08/15/23 05:48> Course Vital Signs 08/01/23 08/01/23 08/01/23 05:13 06:30 07:12 Temperature 101.2 F H 99.0 F Pulse Rate 108 H 87 Respiratory 20 20 Rate Blood Pressure 128/62 66/38 O2 Sat by Pulse 96 96 Oximetry 08/01/23 08/01/23 08/01/23 07:23 07:44 08:16 Temperature Pulse Rate 85 80 85 Respiratory 18 18 18 Rate Blood Pressure 65/40 59/38 77/44 O2 Sat by Pulse 97 96 Oximetry 08/01/23 08/01/23 08/01/23 08:28 08:50 09:02 Temperature Pulse Rate 87 88 86 Respiratory 18 18 18 Rate Blood Pressure 82/48 86/54 96/54 O2 Sat by Pulse 96 96 97 Oximetry 08/01/23 08/01/23 08/01/23 09:16 09:41 10:04 Temperature Pulse Rate 89 86 84 Respiratory 18 18 18 Rate Blood Pressure 83/52 82/48 97/57 O2 Sat by Pulse 97 94 L Oximetry 08/01/23 08/01/23 08/01/23 10:16 10:30 11:00 Temperature Pulse Rate 90 83 83 Respiratory 18 18 18 Rate Blood Pressure 91/56 121/64 114/59 O2 Sat by Pulse 96 96 96 Oximetry 08/01/23 08/01/23 11:43 12:04 Temperature 99.6 F Pulse Rate 83 83 Respiratory 18 16 Rate Blood Pressure 111/66 124/71 O2 Sat by Pulse 97 96 Oximetry Procedures - Central Line Placement Right Femoral Consent Obtained: verbal consent, written consent Patient Placed on Monitor/Pulse Ox: Yes MD Prep: mask, gown, gloves Central Line Prep: Chlorhexidine scrub Local Anesthesia Used: Lidocaine 1% Central Line Lumen Inserted: triple Central Line Position: good blood return, all ports aspirated, flushed, capped, sutured in place with 2-0 silk Dressing Applied: Tegaderm Patient Tolerated Procedure: well, no complications Complications: none <Reuben Cordoba - Last Filed: 08/15/23 05:48> Medical Decision Making - Lab Data Result diagrams: 08/01/23 05:34 08/01/23 05:34 <Koko Prieto - Last Filed: 08/01/23 10:32> - Lab Data Result diagrams: 08/14/23 11:33 08/14/23 11:33 <Reuben Cordoba - Last Filed: 08/15/23 05:48> - Medical Decision Making Patient is a 72-year-old man who presents for reevaluation with generalized abdominal pain. Patient does appear to be septic. He has started on IV fluid and given dose of Zosyn empirically. As he remained hypotensive, central line was placed in the right femoral area see the note. Was pt. sent in by a medical professional or institution (, PA, CHAINSTITCH SEWING MACHINE OPERATOR, urgent care, hospital, or snf...) When possible be specific @ -[No] Did you speak to anyone other than the patient for history (EMS, parent, family, police, friend...)? What history was obtained from this source @ -[No] Did you review nursing and triage notes (agree or disagree)? Why? @ -[I reviewed and agree with nursing and triage notes] Were old charts reviewed (outside hosp., previous admission, EMS record, old EKG, old radiological studies, urgent care reports/EKG's, snf records)? Report findings @ -[No old charts were reviewed] Differential Diagnosis (chest pain, altered mental status, abdominal pain women, abdominal pain men, vaginal bleeding, weakness, fever, dyspnea, syncope, headache, dizziness, GI bleed, back pain, seizure, CVA, palpatations, mental health, musculoskeletal)? @ -[Differential Abdominal Pain Men: Appendicitis, cholecystitis, diverticulosis, ischemic bowel, pancreatitis, hepatitis, UTI, gastroenteritis, AAA, incarcerated hernia, bowel obstruction, c onstipation, inflammatory bowel, hepatitis, peptic ulcer disease, splenic infarction, perforated viscus, testicular torsion, this is not meant to be an all-inclusive list EKG interpreted by me (3pts min.). @ -[As above] X-rays interpreted by me (1pt min.). @ -[None done] CT interpreted by me (1pt min.). @ -[None done] U/S interpreted by me (1pt. min.). @ -[None done] What testing was considered but not performed or refused? (CT, X-rays, U/S, labs)? Why? @ -[None] What meds were considered but not given or refused? Why? @ -[None] Did you discuss the management of the patient with other professionals (professionals i.e. , PA, CHAINSTITCH SEWING MACHINE OPERATOR, lab, RT, psych nurse, child protective services social worker, hemmer chainstitch, teacher, army officer, nurse outreach case manager)? Give summary @ -[No] Was smoking cessation discussed for >3mins.? @ -[No] Was critical care preformed (if so, how long)? @ -[Yes, 30 minutes Were there social determinants of health that impacted care today? How? (Homelessness, low income, unemployed, alcoholism, drug addiction, transportation, low edu. Level, literacy, decrease access to med. care, intermediate, rehab)? @ -[No] Was there de-escalation of care discussed even if they declined (Discuss DNR or withdrawal of care, Hospice)? DNR status @ -[No] What co-morbidities impacted this encounter? (DM, HTN, Smoking, COPD, CAD, Cancer, CVA, ARF, Chemo, Hep., AIDS, mental health diagnosis, sleep apnea, morbid obesity)? @ -[History of splenectomy Was patient admitted / discharged? Hospital course, mention meds given and route, prescriptions, significant lab abnormalities, going to OR and other pertinent info. @ -[Patient is pending CT scan at time of shift change. Is anticipated the patient will be admitted for further fluid and antibiotic therapy. Central line was placed, see the note (Reuben Cordoba) - Lab Data Lab Results 08/01/23 08/01/23 08/01/23 Range/Units 05:34 05:34 06:22 WBC 5.8 (3.8-10.6) k/uL RBC 4.82 (4.30-5.90) m/uL Hgb 14.4 (13.0-17.5) gm/dL Hct 43.3 (39.0-53.0) % MCV 90.0 (80.0-100.0) fL MCH 29.9 (25.0-35.0) pg MCHC 33.2 (31.0-37.0) g/dL RDW 13.0 (11.5-15.5) % Plt Count 423 (150-450) k/uL MPV 7.6 Neutrophils % (Manual) 53 % Band Neuts % (Manual) 20 % Lymphocytes % (Manual) 26 % Monocytes % (Manual) 2 % Eosinophils % (Manual) 1 % Neutrophils # (Manual) 4.20 (1.3-7.7) k/uL Lymphocytes # (Manual) 1.51 (1.0-4.8) k/uL Monocytes # (Manual) 0.12 (0-1.0) k/uL Eosinophils # (Manual) 0.06 (0-0.7) k/uL Nucleated RBCs 0 (0-0) /100 WBC Manual Slide Review Performed Poikilocytosis (manual Present Anisocytosis (manual) Present Fragmented RBCs Present Sodium 127 L (137-145) mmol/L Potassium 4.2 (3.5-5.1) mmol/L Chloride 92 L (98-107) mmol/L Carbon Dioxide 22 (22-30) mmol/L Anion Gap 13 mmol/L BUN 19 (9-20) mg/dL Creatinine 1.01 (0.66-1.25) mg/dL Est GFR (CKD-EPI)AfAm 87 (>60 ml/min/1.73 sqM) Est GFR (CKD-EPI)NonAf 75 (>60 ml/min/1.73 sqM) Glucose 140 H (74-99) mg/dL Calcium 9.1 (8.4-10.2) mg/dL Total Bilirubin 1.1 (0.2-1.3) mg/dL AST 35 (17-59) U/L ALT 27 (4-49) U/L Alkaline Phosphatase 138 H (38-126) U/L C-Reactive Protein 17.0 H (<1.0) mg/dL Total Protein 6.5 (6.3-8.2) g/dL Albumin 3.4 L (3.5-5.0) g/dL Amylase 47 (30-110) U/L Lipase 73 (23-300) U/L Urine Color Urine Appearance (Clear) Urine pH (5.0-8.0) Ur Specific [place] (1.001-1.035) Urine Protein (Negative) Urine Glucose (UA) (Negative) Urine Ketones (Negative) Urine Blood (Negative) Urine Nitrite (Negative) Urine Bilirubin (Negative) Urine Urobilinogen (<2.0) mg/dL Ur Leukocyte Esterase (Negative) Influenza Type A (PCR) Not Detected (Not Detectd) Influenza Type B (PCR) Not Detected (Not Detectd) RSV (PCR) Not Detected (Not Detectd) SARS-CoV-2 (PCR) Not Detected (Not Detectd) 08/01/23 Range/Units 08:45 WBC (3.8-10.6) k/uL RBC (4.30-5.90) m/uL Hgb (13.0-17.5) gm/dL Hct (39.0-53.0) % MCV (80.0-100.0) fL MCH (25.0-35.0) pg MCHC (31.0-37.0) g/dL RDW (11.5-15.5) % Plt Count (150-450) k/uL MPV Neutrophils % (Manual) % Band Neuts % (Manual) % Lymphocytes % (Manual) % Monocytes % (Manual) % Eosinophils % (Manual) % Neutrophils # (Manual) (1.3-7.7) k/uL Lymphocytes # (Manual) (1.0-4.8) k/uL Monocytes # (Manual) (0-1.0) k/uL Eosinophils # (Manual) (0-0.7) k/uL Nucleated RBCs (0-0) /100 WBC Manual Slide Review Poikilocytosis (manual Anisocytosis (manual) Fragmented RBCs Sodium (137-145) mmol/L Potassium (3.5-5.1) mmol/L Chloride (98-107) mmol/L Carbon Dioxide (22-30) mmol/L Anion Gap mmol/L BUN (9-20) mg/dL Creatinine (0.66-1.25) mg/dL Est GFR (CKD-EPI)AfAm (>60 ml/min/1.73 sqM) Est GFR (CKD-EPI)NonAf (>60 ml/min/1.73 sqM) Glucose (74-99) mg/dL Calcium (8.4-10.2) mg/dL Total Bilirubin (0.2-1.3) mg/dL AST (17-59) U/L ALT (4-49) U/L Alkaline Phosphatase (38-126) U/L C-Reactive Protein (<1.0) mg/dL Total Protein (6.3-8.2) g/dL Albumin (3.5-5.0) g/dL Amylase (30-110) U/L Lipase (23-300) U/L Urine Color Yellow Urine Appearance Clear (Clear) Urine pH 6.0 (5.0-8.0) Ur Specific [place] 1.012 (1.001-1.035) Urine Protein Trace H (Negative) Urine Glucose (UA) Negative (Negative) Urine Ketones Negative (Negative) Urine Blood Negative (Negative) Urine Nitrite Negative (Negative) Urine Bilirubin Negative (Negative) Urine Urobilinogen <2.0 (<2.0) mg/dL Ur Leukocyte Esterase Negative (Negative) Influenza Type A (PCR) (Not Detectd) Influenza Type B (PCR) (Not Detectd) RSV (PCR) (Not Detectd) SARS-CoV-2 (PCR) (Not Detectd) Disposition Is patient prescribed a controlled substance at d/c from ED?: No Time of Disposition: 10:32 <Koko Prieto - Last Filed: 08/01/23 10:32> Is patient prescribed a controlled substance at d/c from ED?: No <Reuben Cordoba - Last Filed: 08/15/23 05:48> Clinical Impression: Sepsis, Pneumonia, Hyponatremia Disposition: ADMITTED IP TO THIS HOSP Condition: Serious
[2023-08-01] MEDS: NOREPINEPHRINE 32 MG in SODIUM CHLORIDE 0.9% 218 ML IV ONE (08:32)
[2023-08-01] MEDS: SODIUM CHLORIDE 0.9% 1,000 ML IV SCH (08:32)
[2023-08-01] MEDS: VANCOMYCIN 1,250 MG in SODIUM CHLORIDE 0.9% 250 ML IVPB ONE (09:03)
[2023-08-01 09:10] LABS: Appearance,Urine Clear (Clear); Bilirubin,Urine Negative (Negative); Blood,Urine Negative (Negative); Color,Urine Yellow; Glucose,Urine (UA) Negative (Negative); Ketones,Urine Negative (Negative); Leukocyte Esterase,Urine Negative (Negative); Nitrite,Urine Negative (Negative); Protein,Urine Trace (Negative); Specific Gravity,Urine 1.012 (1.001-1.035); Urobilinogen,Urine <2.0 mg/dL (<2.0)
--- NOTE | 2023-08-01 09:16 | XR ---
EXAMINATION TYPE: XR chest 1V portable DATE OF EXAM: 08/01/2023 COMPARISON: 02/04/2020 HISTORY: Shortness of breath TECHNIQUE: Single frontal view of the chest is obtained. FINDINGS: Limited inspiration with poststernotomy changes and cardiac device. No sizable pneumothora x. There is subsegmental changes in the left lung base with tiny effusion. Stable calcification right upper lobe. IMPRESSION: 1. Left basilar atelectasis or early infiltrate with small effusion. There is no pulmonary edema. Mil d venous congestion in the differential diagnosis
--- NOTE | 2023-08-01 09:57 | CT ---
EXAMINATION TYPE: CT abdomen pelvis w con CT DLP: 1223.3 mGycm, Automated exposure control for dose reduction was used. DATE OF EXAM: 08/01/2023 9:38 AM COMPARISON: CT abdomen pelvis most recent from 07/24/2023 CLINICAL INDICATION:Male, 72 years old with history of abdominal pain/fever; Abdominal pain. TECHNIQUE: Axial CT abdomen pelvis w con;Sagittal and coronal reformats were created on a separate w orkstation. Contrast used:100ml mL of Isovue 300 with IV Contrast, (none if empty) Oral contrast used: without Oral Contrast (none if empty) FINDINGS: LOWER CHEST: Left lower lobe airspace opacities. Right pleural effusion with associated atelectasis. The heart is enlarged for size. Cardiac conduction leads are present with sternotomy wires partially visualized. ABDOMEN LIVER: Heterogenous enhancement pattern of the liver. Few scattered probable hepatic cyst. GALLBLADDER AND BILE DUCTS: Unremarkable. PANCREAS: Unremarkable. SPLEEN: Suspected prior traumatic injury to the spleen. ADRENAL GLANDS: Unremarkable. KIDNEYS AND URETERS: No evidence of hydronephrosis or renal calculus. The ureters are unremarkable. PELVIS BLADDER: Nondistended with Mays catheter in place. Gas within the lumen likely secondary to Mays ca theter insertion. REPRODUCTIVE: Unremarkable. ABDOMEN & PELVIS STOMACH AND BOWEL: No evidence of bowel obstruction. Dilated loops of bowel in the left upper quadran t jejunum measuring up to 3.9 cm. There is a large amount of stool throughout the colon. PERITONEUM/RETROPERITONEUM: No evidence of pneumoperitoneum. Simple free fluid in the abdomen. Multip le surgical clips are seen extending along the retroperitoneum. Vascular: No evidence of aortic aneurysm. Right inferior approach central venous catheter with tip te rminating in the right common iliac vein. MUSCULOSKELETAL: No acute osseous abnormalities left hip arthroplasty hardware appears intact. LYMPH NODES: No gross evidence for lymphadenopathy. SOFT TISSUE/ABDOMINAL WALL: Anasarca throughout the soft tissues. IMPRESSION: 1. New left lower lobe airspace opacities correlate for pneumonia. 2. Dilation of loops of small bowel and large amount of stool correlate for ileus. 3. Cardiomegaly with small right pleural effusion ascites and anasarca correlate for congestive hear t failure. 4. Heterogenous enhancement pattern which can be seen in setting of congestive heart failure and lik jaydon represents congestive hepatopathy.
[2023-08-01] MEDS ORDERED: NALOXONE 0.4 MG/ML 1 ML VIAL IV PRN (10:30)
[2023-08-01] MEDS ORDERED: ONDANSETRON 4 MG/2 ML VIAL IVP PRN (11:27)
[2023-08-01] MEDS ORDERED: MELATONIN 3 MG TABLET PO PRN (11:27)
[2023-08-01] MEDS ORDERED: PNEUMONIA PROTOCOL UTILIZED 1 EACH MISC PO PRN (11:29)
--- NOTE | 2023-08-01 11:34 | P.HPIM ---
History of Present Illness H&P Date: 08/01/23 Patient is a 72-year-old male with a history of Hodgkin's lymphoma status post chemo radiation and splenectomy in the 1970s, atrial fibrillation, dyslipidemia, coronary artery disease with myocardial infarction and coronary artery bypass surgery, and prostate cancer who presented to the emergency department with complaints of abdominal pain. She had been seen in the ER on 07/[address] that showed possible colitis and at that time he was started on a course of amoxicillin, he then developed diarrhea and return to the ER on 07/28 where he was told to stop the amoxicillin. He represented today due to continued abdominal pain. Laboratory analysis in the ER included CBC, CMP, CRP, lipase, and urinalysis which were remarkable for sodium of 127 and C-reactive protein of 17. Influenza A/B/RSV/COVID-19 PCR testing was negative. Initially on presentation patient had stable vital signs but was noted to have a fever of 101.2. Slightly after presentation patient became hypotensive requiring 1.5 L of fluid resuscitation. He remained hypotensive and therefore was started on norepinephrine. Repeat CT abdomen pelvis obtained today demonstrates new left lower lobe airspace opacities, dilation of the small bowel loops with large amount of stool, cardiomegaly with right-sided pleural effusion and anasarca as well as heterogeneous enhancement of the liver consistent with congestive heart failure. Chest x-ray Confirmed left basilar infiltrate. He was started on vancomycin and Zosyn. Arrangements were made for admission to the ICU. Patient seen and examined at bedside. Patient reports that he has been having abdominal pain for the last 1 month. It has been increasing in intensity. Initially the abdominal pain was suprapubic with some radiation to the right cheng e but is now more diffuse. He recounts his emergency room visits as detailed above. He reports that yesterday he started having some nausea and vomiting. He has not had any more diarrhea and his stools have returned to normal since stopping the amoxicillin. This morning he did note some shortness of breath as well as rigors and just did not feel well and that is what prompted him to represent to the emergency department. Vital signs reviewed General: Ill-appearing, no distress, appears at stated age Derm: warm, dry Eyes: EOMI, no lid lag, anicteric sclera, pupils equal round reactive to light ENT: Nose and ears atraumatic, mucous membranes dry Cardiovascular: S1S2 reg, no murmur, no edema Lungs: Rhonchi left base, no wheeze, no accessory muscle use Abdominal: soft, tender to palpation diffusely, no guarding Ext: no gross muscle atrophy, no contractures Neuro: CN II-XII grossly intact, No focal neuro deficits Psych: Alert, oriented, appropriate affect Assessment/Plan: Pneumonia with septic shock in an immunocompromised patient with hx of splenectomy - Admit patient to the ICU - Consult Dr. Hanson -Vancomycin with pharmacy to dose. Monitor trough and serum creatinine for signs of toxicity. -Zosyn 3.375 g every 8 hours IV piggyback -Sputum culture -Await blood cultures -Consult infectious disease -Wean norepinephrine as able -Hold home metoprolol, spironolactone, and Benzapril until blood pressures stabilize Abdominal pain Possible ileus and constipation - consult surgery - add miralax -Hold Bentyl - Clear Liquid diet Compensated Systolic CHF, EF 35-40% - Last echo in 2019 - monitor fluid status closely - all HF meds held given hypotension Hyponatremia, undetermined etiology -Patient has received 3 L of fluid and continue to run with normal saline at 130 cc/h. -Possible secondary to dehydration versus SIADH. Will recheck sodium now. If is downtrending will follow with urine lytes and nephrology consultation. -Hold spironolactone Chronic: Atrial fibrillation Coronary artery disease with history of myocardial infarction status post coronary artery bypass grafting Hypothyroidism Dyslipidemia Imaging: As per HPI Data Review: As per HPI The patient is admitted with an anticipated greater than 2 midnight stay for evaluation of Pneumonia with septic shock . Surrogate decision-maker: Brother Reuben CODE STATUS:Full DVT prophylaxis: Lovenox Anticipated discharge date: Pending Clinical Course Anticipated discharge place: Pending Clinical Course This dictation was prepared using Powered by [employer] voice recognition software. Though every attempt is made to correct errors during dictation some may still exist. Past Medical History Past Medical History: Atrial Fibrillation, Cancer, Heart Failure, Hyperlipidemia, Hypertension, Myocardial Infarction ([place]), Thyroid Disorder Additional Past Medical History / Comment(s): HODGKIN LYMPHOMA RADIATION & CHEMO [place] [id number]), PROSTATE CANCER (JUN 2020). Last Myocardial Infarction Date:: 2011 History of Any Multi-Drug Resistant Organisms: None Reported Past Surgical History: Coronary Bypass/CABG, Heart Catheterization, Joint Replacement, Orthopedic Surgery Additional Past Surgical History / Comment(s): SPLEENECTOMY, TOTAL LEFT HIP (2004) Past Anesthesia/Blood Transfusion Reactions: No Reported Reaction Past Psychological History: No Psychological Hx Reported Smoking Status: Never smoker Past Alcohol Use History: None Reported Past Drug Use History: None Reported - Past Family History Sister(s) Family Medical History: Cancer Additional Family Medical History / Comment(s): OVARIAN CANCER family Family Medical History: Coronary Artery Disease (CAD) Medications and Allergies Home Medications Medication Instructions Recorded Confirmed Type Aspirin [Adult Low Dose Aspirin EC] 162 mg PO DAILY 07/12/17 08/01/23 History Levothyroxine Sodium [Synthroid] 100 mcg PO DAILY 07/12/17 08/01/23 History Benazepril [Lotensin] 5 mg PO HS 02/04/20 08/01/23 History Metoprolol Succinate (ER) [Toprol 50 mg PO BID 02/04/20 08/01/23 History Xl] Tamsulosin [Flomax] 0.4 mg PO HS 11/02/20 08/01/23 History Atorvastatin [Lipitor] 40 mg PO HS 06/11/21 08/01/23 History Spironolactone [Aldactone] 50 mg PO DAILY 07/24/23 08/01/23 History Famotidine [Pepcid] 20 mg PO BID #30 tablet 07/28/23 08/01/23 Rx Dicyclomine [Bentyl] 20 mg PO QID PRN 08/01/23 08/01/23 History Ferrous Sulfate [Feosol] 325 mg PO Q2D 08/01/23 08/01/23 History Allergies Allergy/AdvReac Type Severity Reaction Status Date / Time bee venom protein (honey bee) AdvReac Severe Rash/Hives Verified 08/01/23 10:47 Physical Exam Osteopathic Statement: *. No significant issues noted on an osteopathic structural exam other than those noted in the History and Physical/Consult. Vitals: Vital Signs Temp Pulse Resp BP Pulse Ox 08/01/23 10:30 83 18 121/64 96 08/01/23 10:16 90 18 91/56 96 08/01/23 10:04 84 18 97/57 94 L 08/01/23 09:41 86 18 82/48 08/01/23 09:16 89 18 83/52 97 08/01/23 09:02 86 18 96/54 97 08/01/23 08:50 88 18 86/54 96 08/01/23 08:28 87 18 82/48 96 08/01/23 08:16 85 18 77/44 08/01/23 07:44 80 18 59/38 96 08/01/23 07:23 85 18 65/40 97 08/01/23 07:12 99.0 F 08/01/23 06:30 87 20 66/38 96 08/01/23 05:13 101.2 F H 108 H 20 128/62 96 Intake and Output 07/31/23 08/01/23 08/01/23 22:59 06:59 14:59 Intake Total 2.416 Output Total 50 Balance -47.584 Intake: Intake, IV Titration 2.416 Amount Norepinephrine 32 mg In 2.416 Sodium Chloride 0.9% 218 ml @ 0.03 MCG/KG/MIN 0. 925 mls/hr IV .Q24H ONE Rx#:[id number] Output: Urine 50 Uretheral ([place]) 50 Other: Weight 65.771 kg Results CBC & Chem 7: 08/01/23 05:34 08/01/23 05:34 Labs: Abnormal Lab Results - Last 24 Hours (Table) 08/01/23 08/01/23 Range/Units 05:34 08:45 Sodium 127 L (137-145) mmol/L Chloride 92 L (98-107) mmol/L Glucose 140 H (74-99) mg/dL Alkaline Phosphatase 138 H (38-126) U/L C-Reactive Protein 17.0 H (<1.0) mg/dL Albumin 3.4 L (3.5-5.0) g/dL Urine Protein Trace H (Negative)
[2023-08-01] MEDS: AZITHROMYCIN 500 MG in SODIUM CHLORIDE 0.9% 250 ML IVPB STA (12:03)
[2023-08-01 12:28] LABS: Glucose,Whole Blood 105 mg/dL (70-110)
[2023-08-01 12:41] LABS: African American GFR (CKD) 75 (>60 ml/min/1.73 sqM); Anion Gap 6 mmol/L; Blood Urea Nitrogen 22 mg/dL (9-20); Calcium 7.7 mg/dL (8.4-10.2); Carbon Dioxide 20 mmol/L (22-30); Chloride 103 mmol/L (98-107); Glucose 102 mg/dL (74-99); Magnesium 1.6 mg/dL (1.6-2.3); Non-African American GFR(CKD) 65 (>60 ml/min/1.73 sqM); Phosphorus 3.5 mg/dL (2.5-4.5); Potassium 3.8 mmol/L (3.5-5.1); Sodium 129 mmol/L (137-145)
[2023-08-01] MEDS ORDERED: Magnesium Replacement Protocol 1 EACH MISC MISCELLANE PRN ×2 (12:53→12:55)
[2023-08-01] MEDS ORDERED: Potassium Replacement Protocol 1 EACH MISC MISCELLANE PRN ×2 (12:53→14:42)
--- NOTE | 2023-08-01 12:58 | P.CNPUL ---
History of Present Illness Consult date: 08/01/23 Chief complaint: Hypotension History of present illness: Small amount of ascitic fluid in the abdomen and pelvis. There was circumferential wall thickening of the colonic splenic flexure and this was attributed to either inflammatory or infectious along with a right-sided small pleural effusion. There was some atrophic changes of the pancreatic head with increase in the size of the pancreatic duct within the body and the tail of the pancreas. Back then, the labs were all adequate. The patient was seen in the emergency department and the patient was discharged home on Augmentin 875 mg twice daily and he was given a total of 10-day course. The patient presented back again to the emergency department on 07/28/2023 he was given Bentyl and Pepcid. Note that during his second emergency department visit, the patient was having also some diarrhea and he had diminished oral intake. Subsequently, he came into the emergency department on 08/01/2023 for ongoing abdominal pain and he was dehydrated as the patient was having ongoing diarrhea along with abdominal pain. He also had number of episodes of emesis along with nausea. No reported GI bleeding. No hematemesis. No bright red blood per rectum. During this current emergency department visit, the patient was found to have a hemoglobin of 14.4 with a white cell count of 5.8 and a platelet count of 423. His sodium level was down to 127 with a BUN of 19 and a creatinine of 1.01. UA was negative. The viral screen was negative. LFTs were normal with an alkaline phosphatase of 138, AST of 75 with an ALT of 27 and a bilirubin of 1.1. Amylase and lipase were also not elevated. The patient was given another CAT scan of the abdomen and pelvis and the patient was found to have some left lower lobe airspace opacity and dilatation of the loops of the small bowel in the large amount of stool suggestive of ileus. The patient also has cardiomegaly and small right-sided pleural effusion. In the emergency department, the patient was hypotensive and was given a total of 3 L of IV fluids and subsequently due to his underlying hypotension he was started on pressors with norepinephrine. He was noted to have a fever with a temperature one 1.2. He was started on Zosyn and vancomycin and following that he was transferred to the intensive care unit. He is known to have cardiomyopathy with an ejection fraction of 35 to 40% and his last echocardiogram was done in 2019. He is also known to have coronary artery disease with previous coronary artery bypass surgery, chronic A-fib, hypothyroidism and hyperlipidemia. He is also known to have previous history of prostate cancer and history of Hodgkin's lymphoma and the patient has undergone splenectomy followed by chemotherapy and radiation therapy between the years of 1976 and 1977. His prostate cancer was in June 2020. He has also undergone previous orthopedic surgeries including a total left hip arthroplasty. Review of Systems Constitutional: Reports fatigue, Reports poor appetite, Reports weakness, Reports weight loss Eyes: denies as per HPI, denies blurred vision, denies bulging eye, denies decreased vision, denies diplopia, denies discharge, denies dry eye, denies irritation, denies itching, denies pain, denies photophobia, denies loss of peripheral vision, denies loss of vision, denies tunnel vision/blind spots Ears: deny: decreased hearing, ear discharge, earache, tinnitus Ears, nose, mouth and throat: Reports as per HPI Breasts: absent: as per HPI, gynecomastia Cardiovascular: Reports as per HPI, Reports irregular heart beat Respiratory: Reports as per HPI Gastrointestinal: Reports abdominal pain, Reports diarrhea, Reports nausea, Reports vomiting Genitourinary: Reports as per HPI Musculoskeletal: Reports as per HPI Musculoskeletal: absent: ankle pain, ankle stiffness, ankle swelling Integumentary: Reports as per HPI Neurological: Reports as per HPI Psychiatric: Reports as per HPI Endocrine: Reports as per HPI, Reports fatigue Hematologic/Lymphatic: Reports as per HPI Allergic/Immunologic: Reports as per HPI Past Medical History Past Medical History: Atrial Fibrillation, Coronary Artery Disease (CAD), Cancer, Heart Failure, Hyperlipidemia, Hypertension, Myocardial Infarction ([place]), Thyroid Disorder Additional Past Medical History / Comment(s): HODGKIN LYMPHOMA RADIATION & CHEMO [place] [id number]), PROSTATE CANCER (JUN 2020). Last Myocardial Infarction Date:: 2011 History of Any Multi-Drug Resistant Organisms: None Reported Past Surgical History: Coronary Bypass/CABG, Heart Catheterization, Joint Replacement, Orthopedic Surgery Additional Past Surgical History / Comment(s): SPLEENECTOMY, TOTAL LEFT HIP (2004) Past Anesthesia/Blood Transfusion Reactions: No Reported Reaction Past Psychological History: No Psychological Hx Reported Smoking Status: Never smoker Past Alcohol Use History: None Reported Past Drug Use History: None Reported - Past Family History Sister(s) Family Medical History: Cancer Additional Family Medical History / Comment(s): OVARIAN CANCER family Family Medical History: Coronary Artery Disease (CAD) Medications and Allergies Home Medications Medication Instructions Recorded Confirmed Type Aspirin [Adult Low Dose Aspirin EC] 162 mg PO DAILY 07/12/17 08/01/23 History Levothyroxine Sodium [Synthroid] 100 mcg PO DAILY 07/12/17 08/01/23 History Benazepril [Lotensin] 5 mg PO HS 02/04/20 08/01/23 History Metoprolol Succinate (ER) [Toprol 50 mg PO BID 02/04/20 08/01/23 History Xl] Tamsulosin [Flomax] 0.4 mg PO HS 11/02/20 08/01/23 History Atorvastatin [Lipitor] 40 mg PO HS 06/11/21 08/01/23 History Spironolactone [Aldactone] 50 mg PO DAILY 07/24/23 08/01/23 History Famotidine [Pepcid] 20 mg PO BID #30 tablet 07/28/23 08/01/23 Rx Dicyclomine [Bentyl] 20 mg PO QID PRN 08/01/23 08/01/23 History Ferrous Sulfate [Feosol] 325 mg PO Q2D 08/01/23 08/01/23 History Allergies Allergy/AdvReac Type Severity Reaction Status Date / Time bee venom protein (honey bee) AdvReac Severe Rash/Hives Verified 08/01/23 10:47 Physical Exam Vitals: Vital Signs Temp Pulse Resp BP Pulse Ox 08/01/23 12:04 83 16 124/71 96 08/01/23 11:43 99.6 F 83 18 111/66 97 08/01/23 11:00 83 18 114/59 96 08/01/23 10:30 83 18 121/64 96 08/01/23 10:16 90 18 91/56 96 08/01/23 10:04 84 18 97/57 94 L 08/01/23 09:41 86 18 82/48 08/01/23 09:16 89 18 83/52 97 08/01/23 09:02 86 18 96/54 97 08/01/23 08:50 88 18 86/54 96 08/01/23 08:28 87 18 82/48 96 08/01/23 08:16 85 18 77/44 08/01/23 07:44 80 18 59/38 96 08/01/23 07:23 85 18 65/40 97 08/01/23 07:12 99.0 F 08/01/23 06:30 87 20 66/38 96 08/01/23 05:13 101.2 F H 108 H 20 128/62 96 Intake and Output 07/31/23 08/01/23 08/01/23 22:59 06:59 14:59 Intake Total 2.416 Output Total 50 Balance -47.584 Intake: Intake, IV Titration 2.416 Amount Norepinephrine 32 mg In 2.416 Sodium Chloride 0.9% 218 ml @ 0.03 MCG/KG/MIN 0. 925 mls/hr IV .Q24H ONE Rx#:[id number] Output: Urine 50 Uretheral ([place]) 50 Other: Weight 65.771 kg General: Ill-appearing, no distress, appears at stated age, the patient is currently on room air with a pulse ox of 96 to 97% Head exam was generally normal. There was no scleral icterus or corneal arcus. Mucous membranes were moist. Derm: warm, dry Eyes: EOMI, no lid lag, anicteric sclera, pupils equal round reactive to light ENT: Nose and ears atraumatic, mucous membranes dry Cardiovascular: S1S2 reg, n soft systolic ejection murmur over the left apex. The patient also has a scar of previous thoracotomy Lungs: Rhonchi left base, no wheeze, no accessory muscle use, diminished breath sounds right lung base consistent with pleural effusion Abdominal: soft, tender to palpation diffusely, no guarding, scar of previous abdominal surgeries noted. The patient has no bowel sounds at this point in time. No rebound tenderness. No guarding. No organomegaly. Ext: no gross muscle atrophy, no contractures Neuro: CN II-XII grossly intact, No focal neuro deficits Psych: Alert, oriented, appropriate affect Results - Laboratory Findings CBC and BMP: 08/01/23 05:34 08/01/23 12:09 Abnormal lab findings: Abnormal Labs 08/01/23 08/01/23 05:34 08:45 Sodium 127 L Chloride 92 L Glucose 140 H Alkaline Phosphatase 138 H C-Reactive Protein 17.0 H Albumin 3.4 L Urine Protein Trace H - Diagnostic Findings Chest x-ray: image reviewed Assessment and Plan Plan: Acute hypotension/shock, likely hypovolemic in nature as the patient was having continuous diarrhea with the possibility of underlying septic shock continuity of his hypotension and the patient is currently under further investigation. The patient was refractory to fluids and the patient is currently on pressors. No significant leukocytosis. No significant hypoxemia and the patient's pulse ox is 96% on room air oxygen. Abdominal pain/diarrhea, currently under investigation. About underlying colitis/ischemic/infectious in a patient was being treated with Augmentin on outpatient basis. Possibility of C. difficile colitis cannot be completely ruled out. Ileus with small bowel distention, versus partial small bowel obstruction Right-sided pleural effusion along with some inflammatory changes in the left lung base. Consider possibility of a new onset pneumonia in the left lower lobe although clinically, the presentation is not consistent with pneumonia CHF with impaired ejection fraction of 35 to 40% with chronic systolic heart failure based on echocardiogram in 2019, the patient has an AICD in place Coronary artery disease previous bypass surgery and the patient's most recent cardiac catheterization is from May 2021 and this indicated patent GOMEZ to LAD and patent SVG to PDA and occluded SVG to OM1, OM 2 and diagonal. The [place] coronary arteries were also disease. Medical management was offered to this patient. Hyperlipidemia Hypothyroidism History of Hodgkin's lymphoma with a previous splenectomy followed by chemoradiation therapy back in History of prostate cancer, UA is negative at this point in time, the patient has been treated with therapy in the past Hyponatremia, likely hypovolemic in nature secondary to diarrhea Plan The patient will be admitted to the intensive care unit for further monitoring Continue IV fluids and the patient is currently along with a 130 cc an hour Pressors were initiated and the patient is currently on norepinephrine at 0.0 6 mcg/kg/min Blood cultures Check procalcitonin level Check lactic acid level General surgery consultation No significant nausea at this point in time. If needed, will put an NG tube Check echocardiogram Hold antihypertensive medication including Lotensin and metoprolol and Aldactone at this point in time Lovenox for DVT prophylaxis Continue Synthroid 50 mg IV every 24 hours Patient is currently on room air oxygen Will continue to follow
--- NOTE | 2023-08-01 13:01 | CA ---
Transthoracic Echo Report Name: Shamar Diehl Age: 72 Gender: M : 1950 Exam Date: 08/01/2023 12:28 Exam Location: [facility] Ht (in): 70 Wt (lb): 145 Ordering Physician: Koko rPieto MD Attending/Referring Phys: [id number], [employer]ner Intelligence Engineer Derrick Garcias RD Procedure CPT: Indications: chf Cardiac Hx: Technical Quality: Technically difficult study Contrast 1: Definity Total Dose (mL): 2 Contrast 2: Total Dose (mL): MEASUREMENTS (Male / Female) Normal Values 2D ECHO LV Diastolic Diameter PLAX 4.6 cm 4.2 - 5.9 / 3.9 - 5.3 cm LV Systolic Diameter PLAX 4.2 cm IVS Diastolic Thickness 0.7 cm 0.6 - 1.0 / 0.6 - 0.9 cm LVPW Diastolic Thickness 0.8 cm 0.6 - 1.0 / 0.6 - 0.9 cm LV Relative Wall Thickness 0.3 RV Internal Dim ED PLAX 2.5 cm LVOT Diameter 2.0 cm Aortic Root Diameter 3.2 cm LA Systolic Diameter LX 3.4 cm 3.0 - 4.0 / 2.7 - 3.8 cm LV Diastolic Volume MOD BP 41.2 cm??? 67 - 155 / 56 - 104 cm??? LV Systolic Volume MOD BP 21.2 cm??? 22 - 58 / 19 - 49 cm??? LV Ejection Fraction MOD BP 48.6 % >= 55 % LV Cardiac Index MOD BP 903.8 cm???/min???m??? LV Diastolic Volume MOD 4C 38.1 cm??? LV Systolic Volume MOD 4C 24.3 cm??? LV Ejection Fraction MOD 4C 36.2 % LV Cardiac Index MOD 4C 622.5 cm???/min???m??? LV Diastolic Length 4C 6.0 cm LV Systolic Length 4C 5.6 cm LV Diastolic Volume MOD 2C 43.4 cm??? LV Systolic Volume MOD 2C 18.2 cm??? LV Ejection Fraction MOD 2C 58.1 % LV Cardiac Index MOD 2C 1136.4 cm???/min???m??? LV Diastolic Length 2C 6.2 cm LV Systolic Length 2C 5.4 cm LA Volume 32.7 cm??? 18 - 58 / 22 - 52 cm??? LA Volume Index 18.2 cm???/m??? 16 - 28 cm???/m??? DOPPLER AV Peak Velocity 108.8 cm/s AV Peak Gradient 4.7 mmHg AV Mean Velocity 74.0 cm/s AV Mean Gradient 2.5 mmHg AV Velocity Time Integral 20.7 cm AI Peak Velocity 274.8 cm/s AI Peak Gradient 30.2 mmHg AI Pressure Half Time 447.7 ms LVOT Peak Velocity 80.8 cm/s LVOT Peak Gradient 2.6 mmHg LVOT Velocity Time Integral 16.2 cm LVOT Stroke Volume 48.6 cm??? LVOT Stroke Volume Index 26.7 ml/m??? LVOT Cardiac Index 2192.4 cm???/min???m??? AV Area Cont Eq vti 2.3 cm??? AV Area Cont Eq pk 2.2 cm??? MV Peak Velocity 134.1 cm/s MV Peak Gradient 7.2 mmHg MV Mean Velocity 71.9 cm/s MV Mean Gradient 2.6 mmHg MV Velocity Time Integral 43.8 cm MR Peak Velocity 356.7 cm/s MR Peak Gradient 50.9 mmHg Mitral E Point Velocity 128.4 cm/s Mitral A Point Velocity 111.7 cm/s Mitral E to A Ratio 1.1 MV Deceleration Time 246.6 ms MV E' Velocity 4.2 cm/s Mitral E to MV E' Ratio 30.9 TR Peak Velocity 269.1 cm/s TR Peak Gradient 29.0 mmHg Right Ventricular Systolic Press 34.0 mmHg PV Peak Velocity 106.5 cm/s PV Peak Gradient 4.5 mmHg FINDINGS Left Ventricle Normal LV size and wall thickness. Left ventricular ejection fraction is estimated at 30-35 %. Severe global hypokinesis Right Ventricle Normal right ventricular size. Catheter/pacemaker wire in the right ventricular cavity. Right Atrium Normal right atrial size. Left Atrium Normal left atrial size. Mitral Valve Moderate mitral annulus calcification. MA area by VTI= 1.1cm2. Mild to moderate MR. Aortic Valve Moderate AI. No aortic stenosis.aortic valve sclerosis. Tricuspid Valve Structurally normal tricuspid valve. Mild TR. Pulmonic Valve Structurally normal pulmonic valve. Mild to moderate PI. Pericardium Normal pericardium. Aorta Normal size aortic root. CONCLUSIONS 1. Severely impaired left ventricle systolic function with global hypokinesis 2. Mild to moderate mitral with moderate aortic regurgitation 3. Mild tricuspid regurgitation 4. A catheter was noted in the right ventricle Previewed by: Dr. Didier Robledo MD (Electronically Signed) Final Date: 01 August 2023 13:00
--- NOTE | 2023-08-01 13:20 | P.GSCN ---
History of Present Illness Consult date: 08/01/23 History of present illness: CHIEF COMPLAINT: Abdominal pain HISTORY OF PRESENT ILLNESS: This is a 72-year-old male who presents to the hospital with complaints of abdominal pain x 1 week. He has been having nausea and vomiting. Stools have been loose. Last bowel movement was yesterday. Patient has been to the ER twice for his abdominal pain. Patient had been on antibiotics for colitis in the outpatient setting. His abdominal CT scan from from July 24, 2023 had noted circumferential wall thickening of the colonic splenic flexure which may be due to infectious/inflammatory process versus underdistention. Also noted atrophy of the pancreatic head. Patient reports his last colonoscopy was in 2018 with evidence of colon polyps. Patient does have a significant past medical history with splenectomy, CABG Hodgkin's lymphoma status post chemo treatment, prostate cancer and atrial fibrillation. Patient currently in the ICU with sepsis and possible pneumonia. There are also concerns for ischemic bowel. Patient requiring Levophed. He has been hypote nsive. He also has a warming blanket present. CT scan abdomen pelvis on admission reported dilated loops of small bowel and large amount of stool correlate for ileus. PAST MEDICAL HISTORY: Atrial Fibrillation, Coronary Artery Disease (CAD), Cancer, Heart Failure, Hyperlipidemia, Hypertension, Myocardial Infarction ([place]), Thyroid Disorder, [facility] [place] [id number]), PROSTATE CANCER (JUN 2020). PAST SURGICAL HISTORY: Splenectomy, coronary Bypass/CABG, Heart Catheterization, Joint Replacement, Orthopedic Surgery MEDICATIONS: See below ALLERGIES: See below SOCIAL HISTORY: No illicit drug use. REVIEW OF SYSTEMS: CONSTITUTIONAL: Denies fever or chills. HEENT: Denies blurred vision, vision changes, or eye pain. Denies hemoptysis CARDIOVASCULAR: Denies chest pain or pressure. RESPIRATORY: No shortness of breath. GASTROINTESTINAL: See HPI for pertinent findings HEMATOLOGIC: Denies bleeding disorders. GENITOURINARY: Denies any blood in urine or increased urinary frequency. SKIN: Denies pruitis. Denies rash. PHYSICAL EXAM: VITAL SIGNS: Reviewed GENERAL: no acute distress. HEENT: No sclera icterus. Extraocular movements grossly intact. Moist buccal mucosa. Head is atraumatic, normocephalic. No nasal drainage. ABDOMEN: Distended. Diffuse tenderness. Old large healed scar along the left side of the abdomen. No guarding. NEUROLOGIC: Awake and alert LABORATORY DATA: WBC 5.8 Hgb 14.4 platelets 423 Sodium 129 potassium 3.8 creatinine 1.14 CRP 17 Total bili 1.1 AST 35 ALT 27 lipase 73 Urinalysis negative for infection Influenza, RSV and COVID-19 not detected IMAGING: CT scan abdomen pelvis new left lower lobe airspace opacities correlate for pneumonia. Dilation of loops of small bowel and large amount of stool correlate for ileus. Cardiomegaly with small right pleural effusion ascites and anasarca correlate for congestive heart failure. Heterogenous enhancement pattern which can be seen in CHF and likely represents congestive hepatopathy ASSESSMENT: 1. Abdominal pain with abdominal distention. Recent diagnosis of colitis. Patient is hypotensive. Concerns for possible ischemic colitis. 2. Possible ileus 3. Right-sided pleural effusion, possible pneumonia 4. Hyponatremia 5. History of splenectomy PLAN: -Keep patient n.p.o. 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 Signing provider agrees with the documented findings, assessment, and plan of care. Past Medical History Past Medical History: Atrial Fibrillation, Coronary Artery Disease (CAD), Cancer, Heart Failure, Hyperlipidemia, Hypertension, Myocardial Infarction ([place]), Thyroid Disorder Additional Past Medical History / Comment(s): [facility] [place] [id number]), PROSTATE CANCER (JUN 2020). Last Myocardial Infarction Date:: 2011 History of Any Multi-Drug Resistant Organisms: None Reported Past Surgical History: Coronary Bypass/CABG, Heart Catheterization, Joint Replacement, Orthopedic Surgery Additional Past Surgical History / Comment(s): SPLEENECTOMY, TOTAL LEFT HIP (2004) Past Anesthesia/Blood Transfusion Reactions: No Reported Reaction Past Psychological History: No Psychological Hx Reported Smoking Status: Never smoker Past Alcohol Use History: None Reported Past Drug Use History: None Reported - Past Family History Sister(s) Family Medical History: Cancer Additional Family Medical History / Comment(s): OVARIAN CANCER family Family Medical History: Coronary Artery Disease (CAD) Medications and Allergies Home Medications Medication Instructions Recorded Confirmed Type Aspirin [Adult Low Dose Aspirin EC] 162 mg PO DAILY 07/12/17 08/01/23 History Levothyroxine Sodium [Synthroid] 100 mcg PO DAILY 07/12/17 08/01/23 History Benazepril [Lotensin] 5 mg PO HS 02/04/20 08/01/23 History Metoprolol Succinate (ER) [Toprol 50 mg PO BID 02/04/20 08/01/23 History Xl] Tamsulosin [Flomax] 0.4 mg PO HS 11/02/20 08/01/23 History Atorvastatin [Lipitor] 40 mg PO HS 06/11/21 08/01/23 History Spironolactone [Aldactone] 50 mg PO DAILY 07/24/23 08/01/23 History Famotidine [Pepcid] 20 mg PO BID #30 tablet 07/28/23 08/01/23 Rx Dicyclomine [Bentyl] 20 mg PO QID PRN 08/01/23 08/01/23 History Ferrous Sulfate [Feosol] 325 mg PO Q2D 08/01/23 08/01/23 History Allergies Allergy/AdvReac Type Severity Reaction Status Date / Time bee venom protein (honey bee) AdvReac Severe Rash/Hives Verified 08/01/23 10:47 Surgical - Exam Vital Signs Temp Pulse Resp BP Pulse Ox 101.2 F H 108 H 20 128/62 96 08/01/23 05:13 08/01/23 05:13 08/01/23 05:13 08/01/23 05:13 08/01/23 05:13 Results - Labs 08/01/23 05:34 08/01/23 12:09 Abnormal Lab Results - Last 24 Hours (Table) 08/01/23 08/01/23 08/01/23 Range/Units 05:34 08:45 12:09 Sodium 127 L 129 L (137-145) mmol/L Chloride 92 L (98-107) mmol/L Carbon Dioxide 20 L (22-30) mmol/L BUN 22 H (9-20) mg/dL Glucose 140 H 102 H (74-99) mg/dL Calcium 7.7 L (8.4-10.2) mg/dL Alkaline Phosphatase 138 H (38-126) U/L C-Reactive Protein 17.0 H (<1.0) mg/dL Albumin 3.4 L (3.5-5.0) g/dL Urine Protein Trace H (Negative) Diabetes panel 08/01/23 08/01/23 Range/Units 05:34 12:09 Sodium 127 L 129 L (137-145) mmol/L Potassium 4.2 3.8 (3.5-5.1) mmol/L Chloride 92 L 103 (98-107) mmol/L Carbon Dioxide 22 20 L (22-30) mmol/L BUN 19 22 H (9-20) mg/dL Creatinine 1.01 1.14 (0.66-1.25) mg/dL Glucose 140 H 102 H (74-99) mg/dL Calcium 9.1 7.7 L (8.4-10.2) mg/dL AST 35 (17-59) U/L ALT 27 (4-49) U/L Alkaline Phosphatase 138 H (38-126) U/L Total Protein 6.5 (6.3-8.2) g/dL Albumin 3.4 L (3.5-5.0) g/dL Calcium panel 08/01/23 08/01/23 Range/Units 05:34 12:09 Calcium 9.1 7.7 L (8.4-10.2) mg/dL Phosphorus 3.5 (2.5-4.5) mg/dL Albumin 3.4 L (3.5-5.0) g/dL Pituitary panel 08/01/23 08/01/23 Range/Units 05:34 12:09 Sodium 127 L 129 L (137-145) mmol/L Potassium 4.2 3.8 (3.5-5.1) mmol/L Chloride 92 L 103 (98-107) mmol/L Carbon Dioxide 22 20 L (22-30) mmol/L BUN 19 22 H (9-20) mg/dL Creatinine 1.01 1.14 (0.66-1.25) mg/dL Glucose 140 H 102 H (74-99) mg/dL Calcium 9.1 7.7 L (8.4-10.2) mg/dL Adrenal panel 08/01/23 08/01/23 Range/Units 05:34 12:09 Sodium 127 L 129 L (137-145) mmol/L Potassium 4.2 3.8 (3.5-5.1) mmol/L Chloride 92 L 103 (98-107) mmol/L Carbon Dioxide 22 20 L (22-30) mmol/L BUN 19 22 H (9-20) mg/dL Creatinine 1.01 1.14 (0.66-1.25) mg/dL Glucose 140 H 102 H (74-99) mg/dL Calcium 9.1 7.7 L (8.4-10.2) mg/dL Total Bilirubin 1.1 (0.2-1.3) mg/dL AST 35 (17-59) U/L ALT 27 (4-49) U/L Alkaline Phosphatase 138 H (38-126) U/L Total Protein 6.5 (6.3-8.2) g/dL Albumin 3.4 L (3.5-5.0) g/dL
[2023-08-01] MEDS: PIPERACILLIN-TAZOBACTAM 3.375 GM in SODIUM CHLORIDE 0.9% 100 ML IVPB SCH (14:02)
[2023-08-01] MEDS: MAGNESIUM SULFATE-D5W PMX 1 GM in DEXTROSE/WATER 1 100ML.BAG IVPB SCH (14:02)
[2023-08-01] MEDS: POTASSIUM CHLORIDE 10 MEQ in WATER FOR INJECTION 1 100ML.BAG IVPB SCH (15:37)
[2023-08-01 20:54] LABS: African American GFR (CKD) 89 (>60 ml/min/1.73 sqM); Anion Gap 5 mmol/L; Blood Urea Nitrogen 22 mg/dL (9-20); Calcium 7.6 mg/dL (8.4-10.2); Carbon Dioxide 19 mmol/L (22-30); Chloride 104 mmol/L (98-107); Glucose 96 mg/dL (74-99); Non-African American GFR(CKD) 77 (>60 ml/min/1.73 sqM); Potassium 4.2 mmol/L (3.5-5.1); Sodium 128 mmol/L (137-145)
--- NOTE | 2023-08-01 21:44 | P.CONS ---
History of Present Illness - Reason for Consult Consult date: 08/01/23 - History of Present Illness Patient is a 80-year-old male with a past medical history significant for atrial fibrillation hypertension hyperlipidemia [place] did have history of Hodgkin lymphoma and prostate cancer splenectomy as a part of staging for the Hodgkin lymphoma back in the 70s presenting to the ER for evaluation of abdominal pain the patient pain has been going on for about a week and this patient apparently was seen in the ER on July 24, [address] patient did [address] suggestive of colitis and the patient has been treated with a course of Augmentin subsequently presenting back to the hospital on July 28 complaining of diarrhea thought to be related to Augmentin and was given some fluid and advised to stop taking his antibiotics patient symptom persisted has been complaining of mostly left-sided abdominal pain colicky moderate intensity and also complaining of diarrhea but no blood or mucus in the stool there episode of nausea and vomiting at home with the symptoms the patient presented back to the hospital on arrival to the ER patient did have a fever of 101.2 F patient was tachycardic hypotensive requiring fluid and pressor support but no significant hypoxemia and no need for supplemental oxygen patient did have white count of 5.8 BUN was mildly elevated creatinine was normal liver enzymes are normal amylase lipase was normal urine has been negative patient did have a abdominal p vidhya CT with evidence of new left lower lobe airspace opacity correlate for pneumonia dilatation of loops of small bowel and large amount of stool correlate for ileus cardiomegaly with small right effusion anasarca correlate for congestive heart failure patient was started on vancomycin and Zosyn concerning for sepsis infectious disease was consulted for further management of antibiotic therapy patient currently denies having any headache denies having any URI symptoms denies having any chest pain or shortness of breath or cough symptoms has been mostly abdominal as mentioned earlier Past Medical History Past Medical History: Atrial Fibrillation, Cancer, Heart Failure, Hyperlipidemia, Hypertension, Myocardial Infarction ([place]), Thyroid Disorder Additional Past Medical History / Comment(s): [facility] [place] [id number]), PROSTATE CANCER (JUN 2020). Last Myocardial Infarction Date:: 2011 History of Any Multi-Drug Resistant Organisms: None Reported Past Surgical History: Coronary Bypass/CABG, Heart Catheterization, Joint Replacement, Orthopedic Surgery Additional Past Surgical History / Comment(s): SPLEENECTOMY, TOTAL LEFT HIP (2004) Past Anesthesia/Blood Transfusion Reactions: No Reported Reaction Past Psychological History: No Psychological Hx Reported Smoking Status: Never smoker Past Alcohol Use History: None Reported Past Drug Use History: None Reported - Past Family History Sister(s) Family Medical History: Cancer Additional Family Medical History / Comment(s): OVARIAN CANCER family Family Medical History: Coronary Artery Disease (CAD) Medications and Allergies Home Medications Medication Instructions Recorded Confirmed Type Aspirin [Adult Low Dose Aspirin EC] 162 mg PO DAILY 07/12/17 08/01/23 History Levothyroxine Sodium [Synthroid] 100 mcg PO DAILY 07/12/17 08/01/23 History Benazepril [Lotensin] 5 mg PO HS 02/04/20 08/01/23 History Metoprolol Succinate (ER) [Toprol 50 mg PO BID 02/04/20 08/01/23 History Xl] Tamsulosin [Flomax] 0.4 mg PO HS 11/02/20 08/01/23 History Atorvastatin [Lipitor] 40 mg PO HS 06/11/21 08/01/23 History Spironolactone [Aldactone] 50 mg PO DAILY 07/24/23 08/01/23 History Famotidine [Pepcid] 20 mg PO BID #30 tablet 07/28/23 08/01/23 Rx Dicyclomine [Bentyl] 20 mg PO QID PRN 08/01/23 08/01/23 History Ferrous Sulfate [Feosol] 325 mg PO Q2D 08/01/23 08/01/23 History Allergies Allergy/AdvReac Type Severity Reaction Status Date / Time bee venom protein (honey bee) AdvReac Severe Rash/Hives Verified 08/01/23 10:47 Physical Exam Vitals: Vital Signs Temp Pulse Resp BP Pulse Ox 08/01/23 10:30 83 18 121/64 96 08/01/23 10:16 90 18 91/56 96 08/01/23 10:04 84 18 97/57 94 L 08/01/23 09:41 86 18 82/48 08/01/23 09:16 89 18 83/52 97 08/01/23 09:02 86 18 96/54 97 08/01/23 08:50 88 18 86/54 96 08/01/23 08:28 87 18 82/48 96 08/01/23 08:16 85 18 77/44 08/01/23 07:44 80 18 59/38 96 08/01/23 07:23 85 18 65/40 97 08/01/23 07:12 99.0 F 08/01/23 06:30 87 20 66/38 96 08/01/23 05:13 101.2 F H 108 H 20 128/62 96 Intake and Output 07/31/23 08/01/23 08/01/23 22:59 06:59 14:59 Intake Total 2.416 Output Total 50 Balance -47.584 Intake: Intake, IV Titration 2.416 Amount Norepinephrine 32 mg In 2.416 Sodium Chloride 0.9% 218 ml @ 0.03 MCG/KG/MIN 0. 925 mls/hr IV .Q24H ONE Rx#:[id number] Output: Urine 50 Uretheral ([place]) 50 Other: Weight 65.771 kg Results CBC & Chem 7: 08/01/23 05:34 08/01/23 20:32 Labs: Abnormal Lab Results - Last 24 Hours (Table) 08/01/23 08/01/23 Range/Units 05:34 08:45 Sodium 127 L (137-145) mmol/L Chloride 92 L (98-107) mmol/L Glucose 140 H (74-99) mg/dL Alkaline Phosphatase 138 H (38-126) U/L C-Reactive Protein 17.0 H (<1.0) mg/dL Albumin 3.4 L (3.5-5.0) g/dL Urine Protein Trace H (Negative) Assessment and Plan Plan: 1patient presented hospital with sepsis/septic shock in this patient who did have a fever tachycardia hypotension requiring pressor support patient predominately have abdominal symptoms of pain and did have diarrhea with a recent diagnosis of colitis with a question of ischemic versus infectious colitis 2-CT abdominal pelvis also shows evidence of left lower lobe pneumonia however the patient do not have any respiratory symptoms and currently not requiring any supplemental oxygen 3-patient did have a history of splenectomy and lymphoma not on any chemotherapy currently 4-we will request for stool studies including stool culture stool for C. difficile and try to obtain a sputum 5-recommend continue the patient on Zosyn 3.375 g every 8 hours however discontinue vancomycin to decrease risk of nephrotoxicity as symptoms are predominantly abdominal and more likely dealing with enteric gram-negative pa thogen's rather than gram-positive We will follow on clinical condition and cultures to further adjust medication if needed Thank you for this consultation we will follow the patient along with you Dictation was produced using [email or web address] dictation software. please excuse any grammatical, word or spelling errors. Time with Patient: Greater than 30
[2023-08-01] MEDS: KETOROLAC 15 MG/ML 1 ML VIAL IVP STA (22:24)
[2023-08-02] MEDS ORDERED: VANCOMYCIN 1,250 MG in SODIUM CHLORIDE 0.9% 250 ML IVPB SCH
[2023-08-02 04:14] LABS: HCT 34.9 % (39.0-53.0); Hypochromasia Slight; MCH 30.1 pg (25.0-35.0); MCHC 32.5 g/dL (31.0-37.0); MCV 92.6 fL (80.0-100.0); Mean Platelet Volume 7.2; Platelet Count 365 k/uL (150-450); RBC 3.77 m/uL (4.30-5.90); RDW 13.1 % (11.5-15.5); WBC 12.9 k/uL (3.8-10.6)
[2023-08-02 04:23] LABS: ALT 22 U/L (4-49); AST 29 U/L (17-59); African American GFR (CKD) 86 (>60 ml/min/1.73 sqM); Albumin 2.4 g/dL (3.5-5.0); Alkaline Phosphatase 132 U/L (38-126); Anion Gap 9 mmol/L; Blood Urea Nitrogen 22 mg/dL (9-20); Calcium 7.8 mg/dL (8.4-10.2); Carbon Dioxide 18 mmol/L (22-30); Chloride 104 mmol/L (98-107); Glucose 91 mg/dL (74-99); Magnesium 2.3 mg/dL (1.6-2.3); Non-African American GFR(CKD) 74 (>60 ml/min/1.73 sqM); Phosphorus 3.4 mg/dL (2.5-4.5); Potassium 4.1 mmol/L (3.5-5.1); Sodium 131 mmol/L (137-145); Total Bilirubin 0.7 mg/dL (0.2-1.3)
[2023-08-02 04:29] LABS: HGB 11.4 gm/dL (13.0-17.5)
[2023-08-02] MEDS: ENOXAPARIN 40 MG/0.4 ML SYRINGE SQ SCH (08:06)
[2023-08-02] MEDS: LEVOTHYROXINE IVP 100 MCG/5 ML VIAL IV SCH (08:06)
[2023-08-02] MEDS: IBUPROFEN 400 MG TAB PO PRN (08:06)
[2023-08-02 10:43] VITALS: BMI 23.4
--- NOTE | 2023-08-02 11:34 | P.PN ---
Subjective Progress Note Date: 08/02/23 Small amount of ascitic fluid in the abdomen and pelvis. There was circumferential wall thickening of the colonic splenic flexure and this was attributed to either inflammatory or infectious along with a right-sided small pleural effusion. There was some atrophic changes of the pancreatic head with increase in the size of the pancreatic duct within the body and the tail of the pancreas. Back then, the labs were all adequate. The patient was seen in the emergency department and the patient was discharged home on Augmentin 875 mg twice daily and he was given a total of 10-day course. The patient presented back again to the emergency department on 07/28/2023 he was given Bentyl and Pepcid. Note that during his second emergency department visit, the patient was having also some diarrhea and he had diminished oral intake. Subsequently, he came into the emergency department on 08/01/2023 for ongoing abdominal pain and he was dehydrated as the patient was having ongoing diarrhea along with abdominal pain. He also had number of episodes of emesis along with nausea. No reported GI bleeding. No hematemesis. No bright red blood per rectum. During this current emergency department visit, the patient was found to have a hemoglobin of 14.4 with a white cell count of 5.8 and a platelet count of 423. His sodium level was down to 127 with a BUN of 19 and a creatinine of 1.01. UA was negati ve. The viral screen was negative. LFTs were normal with an alkaline phosphatase of 138, AST of 75 with an ALT of 27 and a bilirubin of 1.1. Amylase and lipase were also not elevated. The patient was given another CAT scan of the abdomen and pelvis and the patient was found to have some left lower lobe airspace opacity and dilatation of the loops of the small bowel in the large amount of stool suggestive of ileus. The patient also has cardiomegaly and small right-sided pleural effusion. In the emergency department, the patient was hypotensive and was given a total of 3 L of IV fluids and subsequently due to his underlying hypotension he was started on pressors with norepinephrine. He was noted to have a fever with a temperature one 1.2. He was started on Zosyn and vancomycin and following that he was transferred to the intensive care unit. He is known to have cardiomyopathy with an ejection fraction of 35 to 40% and his last echocardiogram was done in 2019. He is also known to have coronary artery disease with previous coronary artery bypass surgery, chronic A-fib, hypothyroidism and hyperlipidemia. He is also known to have previous history of prostate cancer and history of Hodgkin's lymphoma and the patient has undergone splenectomy followed by chemotherapy and radiation therapy between the years of 1976 and 1977. His prostate cancer was in June 2020. He has also undergone previous orthopedic surgeries including a total left hip arthroplasty. On today's evaluation of 08/02/2023, the patient is being seen in follow-up in the intensive care unit. The patient is doing well. No specific complaints. Abdomen is less tender compared to yesterday and the firmness is also improved. The patient has bowel sounds. No bowel movement activity yet. Suspect ischemic colitis and ileus. The procalcitonin level was elevated at 4.2. The patient had blood culture sent that are negative and the patient remains on IV Zosyn. IV fluids are running at 830 cc an hour of normal saline and the patient remains on norepinephrine 0.06 mcg/kg/min. The white cell count is at 12.9 with a hemoglobin of 11.4 and a platelet count of 365. BUN is at 22 with a creatinine of 1.02. Sodium level is at 131. The patient is currently on room air oxygen. No sinus tachycardia. He remains in a sinus rhythm. Objective - Vital Signs Vital signs: Vital Signs Temp 98.7 F 08/02/23 08:00 Pulse 87 08/02/23 08:15 Resp 23 08/02/23 08:15 BP 122/64 08/02/23 08:15 Pulse Ox 97 08/02/23 08:15 FiO2 Intake & Output 08/01/23 08/02/23 08/02/23 18:59 06:59 18:59 Intake Total 9291.411 1620.891 9.034 Output Total 460 385 Balance 0700.622 0326.891 9.034 Weight 65.771 kg 74.1 kg Intake: IV 1560 1560 Azithromycin 500 mg In 250 Sodium Chloride 0.9% 250 ml @ 250 mls/hr IVPB ONCE ST[facility] Rx#:[id number] Magnesium Sulfate-D5w Pmx 100 1 gm In Dextrose/Water 1 100ml.bag @ 100 mls/hr IVPB Q1H [facility] Rx#: [id number] Piperacillin-Tazobactam 3 100 .375 gm In Sodium Chloride 0.9% 100 ml @ 200 mls/hr IVPB ONCE ST[facility] Rx#:[id number] Potassium Chloride 10 meq 200 In Water For Injection 1 100ml.bag @ 100 mls/hr IVPB Q1H [facility] Rx#: [id number] Sodium Chloride 0.9% 1, 910 1560 000 ml @ 130 mls/hr IV . Q7H42M [facility] Rx#:[id number] Intake, IV Titration 15.292 212.891 9.034 Amount Norepinephrine 32 mg In 15.292 37.891 9.034 Sodium Chloride 0.9% 218 ml @ 0.03 MCG/KG/MIN 0. 925 mls/hr IV .Q24H [facility] Rx#:[id number] Piperacillin-Tazobactam 3 175 .375 gm In Sodium Chloride 0.9% 100 ml @ 25 mls/hr IVPB Q8H [facility] Rx#: [id number] Output: Urine 460 385 Uretheral (Mays) 50 Other: Voiding Method Indwelling Catheter Indwelling Catheter Indwelling Catheter - Exam General: Ill-appearing, no distress, appears at stated age, the patient is currently on room air with a pulse ox of 96 to 97% Head exam was generally normal. There was no scleral icterus or corneal arcus. Mucous membranes were moist. Derm: warm, dry Eyes: EOMI, no lid lag, anicteric sclera, pupils equal round reactive to light ENT: Nose and ears atraumatic, mucous membranes dry Cardiovascular: S1S2 reg, n soft systolic ejection murmur over the left apex. The patient also has a scar of previous thoracotomy Lungs: Rhonchi left base, no wheeze, no accessory muscle use, diminished breath sounds right lung base consistent with pleural effusion Abdominal: soft, tender to palpation diffusely, no guarding, scar of previous abdominal surgeries noted. The patient has no bowel sounds at this point in time. No rebound tenderness. No guarding. No organomegaly. Ext: no gross muscle atrophy, no contractures Neuro: CN II-XII grossly intact, No focal neuro deficits Psych: Alert, oriented, appropriate affect - Labs CBC & Chem 7: 08/02/23 03:38 08/02/23 03:38 Labs: Abnormal Lab Results - Last 24 Hours (Table) 08/01/23 08/01/23 08/01/23 Range/Units 08:45 12:09 12:51 WBC (3.8-10.6) k/uL RBC (4.30-5.90) m/uL Hgb (13.0-17.5) gm/dL Hct (39.0-53.0) % Sodium 129 L (137-145) mmol/L Carbon Dioxide 20 L (22-30) mmol/L BUN 22 H (9-20) mg/dL Glucose 102 H (74-99) mg/dL Calcium 7.7 L (8.4-10.2) mg/dL Alkaline Phosphatase (38-126) U/L Total Protein (6.3-8.2) g/dL Albumin (3.5-5.0) g/dL Procalcitonin 4.27 H (0.02-0.09) ng/mL Urine Protein Trace H (Negative) 08/01/23 08/02/23 08/02/23 Range/Units 20:32 03:38 03:38 WBC 12.9 H (3.8-10.6) k/uL RBC 3.77 L (4.30-5.90) m/uL Hgb 11.4 L D (13.0-17.5) gm/dL Hct 34.9 L (39.0-53.0) % Sodium 128 L 131 L (137-145) mmol/L Carbon Dioxide 19 L 18 L (22-30) mmol/L BUN 22 H 22 H (9-20) mg/dL Glucose (74-99) mg/dL Calcium 7.6 L 7.8 L (8.4-10.2) mg/dL Alkaline Phosphatase 132 H (38-126) U/L Total Protein 5.0 L (6.3-8.2) g/dL Albumin 2.4 L (3.5-5.0) g/dL Procalcitonin (0.02-0.09) ng/mL Urine Protein (Negative) Assessment and Plan Plan: Acute hypotension/shock, a combination of hypovolemic and septic in nature, remains on low-dose norepinephrine at 0.06 mcg/kg/min. Rule out ischemic colitis with secondary sepsis. Procalcitonin level was elevated. Abdominal pain/diarrhea, currently under investigation. About underlying colitis/ischemic/infectious in a patient was being treated with Augmentin on outpatient basis. Possibility of C. difficile colitis cannot be completely ruled out. The patient has not had any bowel movement over the past 24 hours. As such, CT for evaluation was not done. Ileus with small bowel distention, versus partial small bowel obstruction, remains n.p.o., abdominal distention is improved compared to yesterday Right-sided pleural effusion along with some inflammatory changes in the left lung base. Consider possibility of a new onset pneumonia in the left lower lobe although clinically, the presentation is not consistent with pneumonia CHF with impaired ejection fraction of 35 to 40% with chronic systolic heart failure based on echocardiogram in 2019, the patient has an AICD in place, repeat echocardiogram showed an ejection fraction of around 30 to 35% along with global hypokinesis. Coronary artery disease previous bypass surgery and the patient's most recent cardiac catheterization is from May 2021 and this indicated patent GOMEZ to LAD and patent SVG to PDA and occluded SVG to OM1, OM 2 and diagonal. [place] coronary arteries were also disease. Medical management was offered to this patient. Hyperlipidemia Hypothyroidism History of Hodgkin's lymphoma with a previous splenectomy followed by chemoradiation therapy back in History of prostate cancer, UA is negative at this point in time, the patient has been treated with therapy in the past Hyponatremia, likely hypovolemic in nature secondary to diarrhea, sodium level is improving Plan Continue IV fluids and the patient is currently along with a 130 cc an hour Pressors were initiated and the patient is currently on norepinephrine at 0.0 6 mcg/kg/min Blood cultures still pending Check procalcitonin level, elevated Check lactic acid level, improved General surgery consultation No significant nausea at this point in time. If needed, will put an NG tube Echo was noted Hold antihypertensive medication including Lotensin and metoprolol and Aldactone at this point in time Lovenox for DVT prophylaxis Continue Synthroid 50 mg IV every 24 hours Patient is currently on room air oxygen May allow clear liquid diet if this is okay with the general surgeon Will continue to follow
[2023-08-02] MEDS: ACETAMINOPHEN TAB 325 MG TAB PO PRN (12:41)
--- NOTE | 2023-08-02 12:41 | P.PN ---
Subjective Progress Note Date: 08/02/23 (delayed charting seen at 0830) Patient is a 72-year-old male with a history of Hodgkin's lymphoma status post chemo radiation and splenectomy in the 1970s, atrial fibrillation, dyslipidemia, coronary artery disease with myocardial infarction and coronary artery bypass surgery, and prostate cancer who presented to the emergency department with complaints of abdominal pain. She had been seen in the ER on 07/[address] that showed possible colitis and at that time he was started on a course of amoxicillin, he then developed diarrhea and return to the ER on 07/28 where he was told to stop the amoxicillin. He represented today due to continued abdominal pain. Laboratory analysis in the ER included CBC, CMP, CRP, lipase, and urinalysis which were remarkable for sodium of 127 and C-reactive protein of 17. Influenza A/B/RSV/COVID-19 PCR testing was negative. Initially on presentation patient had stable vital signs but was noted to have a fever of 101.2. Slightly after presentation patient became hypotensive requiring 1.5 L of fluid resuscitation. He remained hypotensive and therefore was started on norepinephrine. Repeat CT abdomen pelvis obtained today demonstrates new left lower lobe airspace opacities, dilation of the small bowel loops with large amount of stool, cardiomegaly with right-sided pleural effusion and anasarca as well as heterogeneous enhancement of the liver consistent with congestive heart failure. Chest x-ray Confirmed left basilar infiltrate. He was started on vancomycin and Zosyn. Arrangements were made for admission to the ICU. He was seen by pulmonary, infectious disease, and general surgery. Antibiotics were optimized to Zosyn only. Patient seen and examined at bedside. Abdominal pain is improving. No bowel movement since admission. Shortness of breath is improved from yesterday. Feeling slightly tired today. No other complaints currently. Vital signs reviewed General: Nontoxic, no distress, appears at stated age Cardiovascular: S1S2 reg, no murmur Lungs: Decreased bs bilateral, no rhonchi, no rales, no accessory muscle use Abdominal: Soft, nontender to palpation, no guarding Ext: No gross muscle atrophy, no edema b/l lower extremities, no contractures Neuro: CN II-XI grossly intact, no focal neuro deficits Psych: Alert, oriented, appropriate affect Assessment/Plan: Septic shock in an immunocompromised patient with hx of splenectomy Probable pneumonia versus colitis -Zosyn 3.375 g every 8 hours IV piggyback day #2 -Sputum culture pending -blood cultures pending -Pulmonary note reviewed: Continue with supportive care. -Norepinephrine able to be weaned off at 9 AM -Hold home metoprolol, spironolactone, and Benzapril until blood pressures stabilize -Infectious diseases note reviewed: Concerns for ischemic versus infectious colitis, does not feel there are symptoms consistent with pneumonia. Continue with Zosyn Abdominal pain Possible ileus and constipation -General surgery consult reviewed. Possible ischemic colitis versus ileus -Hold Bentyl - Clear Liquid diet Compensated Systolic CHF, EF 30 to 35% - monitor fluid status closely - all HF meds held given hypotension Hyponatremia, undetermined etiology -Decrease NS to 50 cc/ hr dien Hx of CHF -Possible secondary to dehydration versus SIADH. Will recheck sodium now. If is downtrending will follow with urine lytes and nephrology consultation. -Hold spironolactone Chronic: Atrial fibrillation Coronary artery disease with history of myocardial infarction status post coronary artery bypass grafting Hypothyroidism Dyslipidemia Imaging: Echocardiogram reviewed which demonstrates an ejection fraction of 30 to 35% with severe global hypokinesis Data Review: Labs reviewed from today include CBC and CMP which are remarkable for white blood cell count 12.9, hemoglobin 11.4, sodium 131 DVT prophylaxis: lovenox Anticipated discharge date: Pending Clinical Course Anticipated discharge place: Pending Clinical Course This dictation was prepared using [employer] voice recognition software. Though every attempt is made to correct errors during dictation some may still exist. Objective - Vital Signs Vital signs: Vital Signs Temp 98.7 F 08/02/23 12:00 Pulse 90 08/02/23 12:00 Resp 33 H 08/02/23 12:00 BP 102/58 08/02/23 12:00 Pulse Ox 90 L 08/02/23 12:00 FiO2 Intake & Output 08/01/23 08/02/23 08/02/23 18:59 06:59 18:59 Intake Total 9481.663 4208.891 369.639 Output Total 460 385 260 Balance 1750.544 2535.891 109.639 Weight 65.771 kg 74.1 kg 74.1 kg Intake: IV 1560 1560 360 Azithromycin 500 mg In 250 Sodium Chloride 0.9% 250 ml @ 250 mls/hr IVPB ONCE STA Rx#:[id number] Magnesium Sulfate-D5w Pmx 100 1 gm In Dextrose/Water 1 100ml.bag @ 100 mls/hr IVPB Q1H [facility] Rx#: [id number] Piperacillin-Tazobactam 3 100 .375 gm In Sodium Chloride 0.9% 100 ml @ 200 mls/hr IVPB ONCE STA Rx#:[id number] Potassium Chloride 10 meq 200 In Water For Injection 1 100ml.bag @ 100 mls/hr IVPB Q1H [facility] Rx#: [id number] Sodium Chloride 0.9% 1, 910 1560 360 000 ml @ 50 mls/hr IV . Q20H [facility] Rx#:[id number] Intake, IV Titration 15.292 212.891 9.639 Amount Norepinephrine 32 mg In 15.292 37.891 9.639 Sodium Chloride 0.9% 218 ml @ 0.03 MCG/KG/MIN 0. 925 mls/hr IV .Q24H [facility] Rx#:[id number] Piperacillin-Tazobactam 3 175 .375 gm In Sodium Chloride 0.9% 100 ml @ 25 mls/hr IVPB Q8H [facility] Rx#: [id number] Output: Urine 460 385 260 Uretheral (Mays) 50 Other: Voiding Method Indwelling Catheter Indwelling Catheter Indwelling Catheter - Labs CBC & Chem 7: 08/02/23 03:38 08/02/23 03:38 Labs: Abnormal Lab Results - Last 24 Hours (Table) 08/01/23 08/01/23 08/01/23 Range/Units 12:09 12:51 20:32 WBC (3.8-10.6) k/uL RBC (4.30-5.90) m/uL Hgb (13.0-17.5) gm/dL Hct (39.0-53.0) % Sodium 129 L 128 L (137-145) mmol/L Carbon Dioxide 20 L 19 L (22-30) mmol/L BUN 22 H 22 H (9-20) mg/dL Glucose 102 H (74-99) mg/dL Calcium 7.7 L 7.6 L (8.4-10.2) mg/dL Alkaline Phosphatase (38-126) U/L Total Protein (6.3-8.2) g/dL Albumin (3.5-5.0) g/dL Procalcitonin 4.27 H (0.02-0.09) ng/mL 08/02/23 08/02/23 Range/Units 03:38 03:38 WBC 12.9 H (3.8-10.6) k/uL RBC 3.77 L (4.30-5.90) m/uL Hgb 11.4 L D (13.0-17.5) gm/dL Hct 34.9 L (39.0-53.0) % Sodium 131 L (137-145) mmol/L Carbon Dioxide 18 L (22-30) mmol/L BUN 22 H (9-20) mg/dL Glucose (74-99) mg/dL Calcium 7.8 L (8.4-10.2) mg/dL Alkaline Phosphatase 132 H (38-126) U/L Total Protein 5.0 L (6.3-8.2) g/dL Albumin 2.4 L (3.5-5.0) g/dL Procalcitonin (0.02-0.09) ng/mL
--- NOTE | 2023-08-02 15:49 | P.PN ---
Subjective Progress Note Date: 08/02/23 CHIEF COMPLAINT: Abdominal pain HISTORY OF PRESENT ILLNESS: Patient remains in the ICU. He abdominal pain is less. Denies any nausea or vomiting. No bowel activity. He is off the Levophed. Afebrile. WBC is up at 12.9 PHYSICAL EXAM: VITAL SIGNS: Reviewed. GENERAL: Well-developed in no acute distress. ABDOMEN: Soft. Mildly distended. Mild tenderness mid abdomen with palpation NEUROLOGIC: Alert and oriented. Cranial nerves II through XII grossly intact. ASSESSMENT: 1. Abdominal pain with abdominal distention. Recent diagnosis of colitis. Concerns for possible ischemic colitis. 2. Possible ileus 3. Right-sided pleural effusion, possible pneumonia 4. Hyponatremia 5. History of splenectomy PLAN: -Agree with advancing diet to clear liquids -Continue IV fluids -Continue supportive care Physician Sales And Business Development Manager note has been reviewed by physician. Signing provider agrees with the documented findings, assessment, and plan of care. Objective - Vital Signs Vital signs: Vital Signs Temp 98.7 F 08/02/23 12:00 Pulse 87 08/02/23 15:00 Resp 25 H 08/02/23 15:00 BP 111/67 08/02/23 15:00 Pulse Ox 97 08/02/23 15:00 FiO2 Intake & Output 08/01/23 08/02/23 08/02/23 18:59 06:59 18:59 Intake Total 4277.057 2654.891 569.639 Output Total 460 385 415 Balance 1918.561 5099.891 154.639 Weight 65.771 kg 74.1 kg 74.1 kg Intake: IV 1560 1560 560 Azithromycin 500 mg In 250 Sodium Chloride 0.9% 250 ml @ 250 mls/hr IVPB ONCE STA Rx#:[id number] Magnesium Sulfate-D5w Pmx 100 1 gm In Dextrose/Water 1 100ml.bag @ 100 mls/hr IVPB Q1H [facility] Rx#: [id number] Piperacillin-Tazobactam 3 100 .375 gm In Sodium Chloride 0.9% 100 ml @ 200 mls/hr IVPB ONCE STA Rx#:[id number] Potassium Chloride 10 meq 200 In Water For Injection 1 100ml.bag @ 100 mls/hr IVPB Q1H [facility] Rx#: [id number] Sodium Chloride 0.9% 1, 910 1560 560 000 ml @ 50 mls/hr IV . Q20H [facility] Rx#:[id number] Intake, IV Titration 15.292 212.891 9.639 Amount Norepinephrine 32 mg In 15.292 37.891 9.639 Sodium Chloride 0.9% 218 ml @ 0.03 MCG/KG/MIN 0. 925 mls/hr IV .Q24H [facility] Rx#:[id number] Piperacillin-Tazobactam 3 175 .375 gm In Sodium Chloride 0.9% 100 ml @ 25 mls/hr IVPB Q8H [facility] Rx#: [id number] Output: Urine 460 385 415 Uretheral (Mays) 50 Other: Voiding Method Indwelling Catheter Indwelling Catheter Indwelling Catheter - Labs CBC & Chem 7: 08/02/23 03:38 08/02/23 03:38 Labs: Abnormal Lab Results - Last 24 Hours (Table) 08/01/23 08/02/23 08/02/23 Range/Units 20:32 03:38 03:38 WBC 12.9 H (3.8-10.6) k/uL RBC 3.77 L (4.30-5.90) m/uL Hgb 11.4 L D (13.0-17.5) gm/dL Hct 34.9 L (39.0-53.0) % Sodium 128 L 131 L (137-145) mmol/L Carbon Dioxide 19 L 18 L (22-30) mmol/L BUN 22 H 22 H (9-20) mg/dL Calcium 7.6 L 7.8 L (8.4-10.2) mg/dL Alkaline Phosphatase 132 H (38-126) U/L Total Protein 5.0 L (6.3-8.2) g/dL Albumin 2.4 L (3.5-5.0) g/dL Microbiology - Last 24 Hours (Table) 08/01/23 08:45 Urine Culture - Final Urine,Clean Catch 08/01/23 05:45 Blood Culture - Preliminary Blood
[2023-08-03] MEDS: TAMSULOSIN 0.4 MG CAP.ER.24H PO SCH (01:25)
[2023-08-03 05:05] LABS: HCT 34.9 % (39.0-53.0); HGB 11.1 gm/dL (13.0-17.5); MCH 28.8 pg (25.0-35.0); MCHC 31.7 g/dL (31.0-37.0); MCV 90.8 fL (80.0-100.0); Mean Platelet Volume 7.6; Platelet Count 412 k/uL (150-450); RBC 3.84 m/uL (4.30-5.90); RDW 13.3 % (11.5-15.5); WBC 13.1 k/uL (3.8-10.6)
[2023-08-03 05:24] LABS: ALT 24 U/L (4-49); AST 33 U/L (17-59); African American GFR (CKD) >90 (>60 ml/min/1.73 sqM); Albumin 2.5 g/dL (3.5-5.0); Alkaline Phosphatase 125 U/L (38-126); Anion Gap 6 mmol/L; Blood Urea Nitrogen 18 mg/dL (9-20); Calcium 8.1 mg/dL (8.4-10.2); Carbon Dioxide 20 mmol/L (22-30); Chloride 105 mmol/L (98-107); Glucose 95 mg/dL (74-99); Magnesium 2.4 mg/dL (1.6-2.3); Non-African American GFR(CKD) >90 (>60 ml/min/1.73 sqM); Phosphorus 2.7 mg/dL (2.5-4.5); Potassium 3.4 mmol/L (3.5-5.1); Sodium 131 mmol/L (137-145); Total Bilirubin 0.7 mg/dL (0.2-1.3); Total Protein 5.2 g/dL (6.3-8.2)
[2023-08-03] MEDS: POTASSIUM CHLORIDE ER 20 MEQ TAB.ER PO SCH (09:06)
--- NOTE | 2023-08-03 09:12 | XR ---
EXAMINATION TYPE: XR abdomen 1V DATE OF EXAM: 08/03/2023 9:04 AM CLINICAL INDICATION:Male, 72 years old with history of abd pain; [facility] COMPARISON: 2 08/20/2023. TECHNIQUE: One radiographic view of the abdomen was obtained. FINDINGS: The bowel gas pattern is nonspecific without dilated loops of small or large bowel. There i s no evidence for organomegaly or pneumoperitoneum. The osseous structures are intact. No abnormal calcifications are present. Fecal material and gas are demonstrated throughout the colon and rectum. Left hip arthroplasty changes appear intact. Scattered surgical clips present. Stool and rectum. Gas eous dilation of bowel. IMPRESSION: Gaseous dilation of bowel which is a nonspecific bowel gas pattern, Correlate for ileus.
--- NOTE | 2023-08-03 11:41 | P.PN ---
Subjective Progress Note Date: 08/03/23 Small amount of ascitic fluid in the abdomen and pelvis. There was circumferential wall thickening of the colonic splenic flexure and this was attributed to either inflammatory or infectious along with a right-sided small pleural effusion. There was some atrophic changes of the pancreatic head with increase in the size of the pancreatic duct within the body and the tail of the pancreas. Back then, the labs were all adequate. The patient was seen in the emergency department and the patient was discharged home on Augmentin 875 mg twice daily and he was given a total of 10-day course. The patient presented back again to the emergency department on 07/28/2023 he was given Bentyl and Pepcid. Note that during his second emergency department visit, the patient was having also some diarrhea and he had diminished oral intake. Subsequently, he came into the emergency department on 08/01/2023 for ongoing abdominal pain and he was dehydrated as the patient was having ongoing diarrhea along with abdominal pain. He also had number of episodes of emesis along with nausea. No reported GI bleeding. No hematemesis. No bright red blood per rectum. During this current emergency department visit, the patient was found to have a hemoglobin of 14.4 with a white cell count of 5.8 and a platelet count of 423. His sodium level was down to 127 with a BUN of 19 and a creatinine of 1.01. UA was negati ve. The viral screen was negative. LFTs were normal with an alkaline phosphatase of 138, AST of 75 with an ALT of 27 and a bilirubin of 1.1. Amylase and lipase were also not elevated. The patient was given another CAT scan of the abdomen and pelvis and the patient was found to have some left lower lobe airspace opacity and dilatation of the loops of the small bowel in the large amount of stool suggestive of ileus. The patient also has cardiomegaly and small right-sided pleural effusion. In the emergency department, the patient was hypotensive and was given a total of 3 L of IV fluids and subsequently due to his underlying hypotension he was started on pressors with norepinephrine. He was noted to have a fever with a temperature one 1.2. He was started on Zosyn and vancomycin and following that he was transferred to the intensive care unit. He is known to have cardiomyopathy with an ejection fraction of 35 to 40% and his last echocardiogram was done in 2019. He is also known to have coronary artery disease with previous coronary artery bypass surgery, chronic A-fib, hypothyroidism and hyperlipidemia. He is also known to have previous history of prostate cancer and history of Hodgkin's lymphoma and the patient has undergone splenectomy followed by chemotherapy and radiation therapy between the years of 1976 and 1977. His prostate cancer was in June 2020. He has also undergone previous orthopedic surgeries including a total left hip arthroplasty. On today's evaluation of 08/02/2023, the patient is being seen in follow-up in the intensive care unit. The patient is doing well. No specific complaints. Abdomen is less tender compared to yesterday and the firmness is also improved. The patient has bowel sounds. No bowel movement activity yet. Suspect ischemic colitis and ileus. The procalcitonin level was elevated at 4.2. The patient had blood culture sent that are negative and the patient remains on IV Zosyn. IV fluids are running at 830 cc an hour of normal saline and the patient remains on norepinephrine 0.06 mcg/kg/min. The white cell count is at 12.9 with a hemoglobin of 11.4 and a platelet count of 365. BUN is at 22 with a creatinine of 1.02. Sodium level is at 131. The patient is currently on room air oxygen. No sinus tachycardia. He remains in a sinus rhythm. On 08/03/2023, the patient still having some abdominal pain but missed she had no nausea. No emesis.He was taking some clear liquid diet yesterday. However, this morning, he has no appetite. Abdominal x-ray showed gaseous dilatation of the bowel with a nonspecific bowel gas pattern consistent with an ileus. The patient remains on IV fluids. The patient remains on IV Zosyn. Procalcitonin level was elevated at time of admission. Nevertheless, the cultures came back negative. The blood culture preliminary is showing no growth. The white cell count is at 13.2 with a hemoglobin of 11.1 and a platelet count of 412. Sodium is 131 with a potassium level of 3.4, AR is 18 with a creatinine of 0.5. The patient remains on IV Zosyn. Patient is on Lovenox for DVT prophylaxis 40 mg subcu on a daily basis. IV fluids are running at a rate of 50 cc an hour. Objective - Vital Signs Vital signs: Vital Signs Temp 98.0 F 08/03/23 02:00 Pulse 87 08/03/23 02:00 Resp 18 08/03/23 02:00 BP 113/64 08/03/23 02:00 Pulse Ox 96 08/03/23 02:00 FiO2 Intake & Output 08/02/23 08/03/23 08/03/23 18:59 06:59 18:59 Intake Total 569.639 50 Output Total 415 250 Balance 154.639 -200 Weight 74.1 kg Intake: IV 560 50 Sodium Chloride 0.9% 1, 560 50 000 ml @ 50 mls/hr IV . Q20H [facility] Rx#:[id number] Intake, IV Titration 9.639 Amount Norepinephrine 32 mg In 9.639 Sodium Chloride 0.9% 218 ml @ 0.03 MCG/KG/MIN 0. 925 mls/hr IV .Q24H [facility] Rx#:[id number] Output: Urine 415 250 Other: Voiding Method Indwelling Catheter Bedside Commode Urinal - Exam General: Ill-appearing, no distress, appears at stated age, the patient is c urrently on room air with a pulse ox of 96 to 97% Head exam was generally normal. There was no scleral icterus or corneal arcus. Mucous membranes were moist. Derm: warm, dry Eyes: EOMI, no lid lag, anicteric sclera, pupils equal round reactive to light ENT: Nose and ears atraumatic, mucous membranes dry Cardiovascular: S1S2 reg, n soft systolic ejection murmur over the left apex. The patient also has a scar of previous thoracotomy Lungs: Rhonchi left base, no wheeze, no accessory muscle use, diminished breath sounds right lung base consistent with pleural effusion Abdominal: soft, tender to palpation diffusely, no guarding, scar of previous abdominal surgeries noted. The patient has no bowel sounds at this point in time. No rebound tenderness. No guarding. No organomegaly. Ext: no gross muscle atrophy, no contractures Neuro: CN II-XII grossly intact, No focal neuro deficits Psych: Alert, oriented, appropriate affect - Labs CBC & Chem 7: 08/03/23 04:28 08/03/23 04:28 Labs: Abnormal Lab Results - Last 24 Hours (Table) 08/03/23 08/03/23 Range/Units 04:28 04:28 WBC 13.1 H (3.8-10.6) k/uL RBC 3.84 L (4.30-5.90) m/uL Hgb 11.1 L (13.0-17.5) gm/dL Hct 34.9 L (39.0-53.0) % Sodium 131 L (137-145) mmol/L Potassium 3.4 L (3.5-5.1) mmol/L Carbon Dioxide 20 L (22-30) mmol/L Calcium 8.1 L (8.4-10.2) mg/dL Magnesium 2.4 H (1.6-2.3) mg/dL Total Protein 5.2 L (6.3-8.2) g/dL Albumin 2.5 L (3.5-5.0) g/dL Microbiology - Last 24 Hours (Table) 08/01/23 14:42 Nasal Screen MRSA/MSSA - Final Nasal Swab 08/01/23 08:45 Urine Culture - Final Urine,Clean Catch 08/01/23 05:45 Blood Culture - Preliminary Blood Assessment and Plan Plan: Acute hypotension/shock, a combination of hypovolemic and septic in nature, the patient is currently on normal saline at rate of 50 cc an hour. The patient was adequately resuscitated with IV fluids. Pressors were discontinued also yesterday. He remains on room air oxygen. Abdominal pain/diarrhea, currently under investigation. About underlying colitis/ischemic/infectious in a patient was being treated with Augmentin on outpatient basis. Possibility of C. difficile colitis cannot be completely ruled out. The patient has not had any bowel movement over the past 24 hours. As such, CT for evaluation was not done. Ileus with small bowel distention, versus partial small bowel obstruction, remains n.p.o., abdomen is still slightly distended. Bowel sounds are hypoactive and the patient's follow-up abdominal film from today showed nonspecific bowel gas pattern/ileus. Right-sided pleural effusion along with some inflammatory changes in the left lung base. Consider possibility of a new onset pneumonia in the left lower lobe although clinically, the presentation is not consistent with pneumonia CHF with impaired ejection fraction of 35 to 40% with chronic systolic heart failure based on echocardiogram in 2019, the patient has an AICD in place, repeat echocardiogram showed an ejection fraction of around 30 to 35% along with global hypokinesis. Coronary artery disease previous bypass surgery and the patient's most recent cardiac catheterization is from May 2021 and this indicated patent GOMEZ to LAD and patent SVG to PDA and occluded SVG to OM1, OM 2 and diagonal. The [place] coronary arteries were also disease. Medical management was offered to this patient. Hyperlipidemia Hypothyroidism History of Hodgkin's lymphoma with a previous splenectomy followed by chemoradiation therapy back in History of prostate cancer, UA is negative at this point in time, the patient has been treated with therapy in the past Hyponatremia, likely hypovolemic in nature secondary to diarrhea, sodium level is improving Plan Continue IV fluids at the rate of 50 cc an hour and the patient is currently off pressors Cultures are negative Check procalcitonin level, elevated, this will be monitored and repeat procalcitonin level will be obtained tomorrow Check lactic acid level, improved General surgery consultation is appreciated No significant nausea at this point in time. If needed, will put an NG tube Echo was noted Hold antihypertensive medication including Lotensin and metoprolol and Aldactone at this point in time Lovenox for DVT prophylaxis Continue Synthroid 50 mg IV every 24 hours Patient is currently on room air oxygen Suggest bowel rest for the next 24 hours Will continue to follow
--- NOTE | 2023-08-03 13:33 | P.PN ---
Subjective Progress Note Date: 08/03/23 Patient reports overall improvement. Still c/o mild abd pain in the RLQ. No diarrhea. Afebrile. Gen: In NAD, non-toxic, cachectic appearing elderly man HEENT: normocephalic, atraumatic, hearing acuity is intant, mucous membranes moist CVS: perfusing all extremities well, no pitting edema, Respiratory: symmetric chest expansion, no accessory muscle use, GI: soft, tenderness to palpation in the right lower quadrant, ND, : no suprapubic tenderness, no CVA tenderness MSK/Derm: no rashes, cyanosis Neuro: CN II-XII intact, no motor weakness, Psych: cooperative, euthymic mood, judgment and insight is intact Hospital course: Patient is a 72-year-old male with a history of Hodgkin's lymphoma status post chemo radiation and splenectomy in the , atrial fibrillation, dyslipidemia, coronary artery disease with myocardial infarction and coronary artery bypass surgery, and prostate cancer who presented to the emergency department with complaints of abdominal pain. She had been seen in the ER on 07/[address] that showed possible colitis and at that time he was started on a course of amoxicillin, he then developed diarrhea and return to the ER on 07/28 where he was told to stop the amoxicillin. He represented today due to continued abdominal pain. Laboratory analysis in the ER included CBC, CMP, CRP, lipase, and urinalysis which were remarkable for sodium of 127 and C-reactive protein of 17. Influenza A/B/RSV/COVID-19 PCR testing was negative. Initially on presentation patient had stable vital signs but was noted to have a fever of 101.2. Slightly after presentation patient became hypotensive requiring 1.5 L of fluid resuscitation. He remained hypotensive and therefore was started on norepinephrine. Repeat CT abdomen pelvis obtained today demonstrates new left lower lobe airspace opacities, dilation of the small bowel loops with large amount of stool, cardiomegaly with right-sided pleural effusion and anasarca as well as heterogeneous enhancement of the liver consistent with congestive heart failure. Chest x-ray Confirmed left basilar infiltrate. He was started on vancomycin and Zosyn. Arrangements were made for admission to the ICU. He was seen by pulmonary, infectious disease, and general surgery. Antibiotics were optimized to Zosyn only. Echocardiogram reviewed which demonstrates an ejection fraction of 30 to 35% with severe global hypokinesis. Assessment/Plan: Septic shock in an immunocompromised patient with hx of splenectomy Probable pneumonia versus colitis -Zosyn 3.375 g every 8 hours IV piggyback day #3 -Sputum culture pending -blood cultures NGTD -Pulmonary note reviewed: Continue with supportive care. -Hold home metoprolol, spironolactone, and Benzapril until blood pressures stabilize -Infectious diseases note reviewed: Concerns for ischemic versus infectious colitis, does not feel there are symptoms consistent with pneumonia. Continue with Zosyn Abdominal pain Possible ileus and constipation -General surgery consult reviewed. Possible ischemic colitis versus ileus -Hold Bentyl -Clear Liquid diet -increase frequency of PRN zofran to q4h Compensated Systolic CHF, EF 30 to 35% - monitor fluid status closely - all HF meds held given hypotension Hyponatremia, hypovolemic, improving -Decrease NS to 50 cc/ hr due to hx of CHF -Hold spironolactone Chronic: Atrial fibrillation Coronary artery disease with history of myocardial infarction status post coronary artery bypass grafting Hypothyroidism Dyslipidemia - changed levothyroxine from IV to PO DVT prophylaxis: lovenox Anticipated discharge date: Pending Clinical Course Anticipated discharge place: Pending Clinical Course This dictation was prepared using [employer] voice recognition software. Though every attempt is made to correct errors during dictation some may still exist. Objective - Vital Signs Vital signs: Vital Signs Temp 97.5 F L 08/03/23 08:00 Pulse 91 08/03/23 08:00 Resp 18 08/03/23 08:00 BP 121/68 08/03/23 08:00 Pulse Ox 98 08/03/23 08:00 FiO2 Intake & Output 08/02/23 08/03/23 08/03/23 18:59 06:59 18:59 Intake Total 569.639 50 Output Total 415 250 Balance 154.639 -200 Weight 74.1 kg Intake: IV 560 50 Sodium Chloride 0.9% 1, 560 50 000 ml @ 50 mls/hr IV . Q20H [facility] Rx#:[id number] Intake, IV Titration 9.639 Amount Norepinephrine 32 mg In 9.639 Sodium Chloride 0.9% 218 ml @ 0.03 MCG/KG/MIN 0. 925 mls/hr IV .Q24H [facility] Rx#:[id number] Output: Urine 415 250 Other: Voiding Method Indwelling Catheter Bedside Commode Bedside Commode Urinal Urinal - Labs CBC & Chem 7: 08/03/23 04:28 08/03/23 04:28 Labs: Abnormal Lab Results - Last 24 Hours (Table) 08/03/23 08/03/23 Range/Units 04:28 04:28 WBC 13.1 H (3.8-10.6) k/uL RBC 3.84 L (4.30-5.90) m/uL Hgb 11.1 L (13.0-17.5) gm/dL Hct 34.9 L (39.0-53.0) % Sodium 131 L (137-145) mmol/L Potassium 3.4 L (3.5-5.1) mmol/L Carbon Dioxide 20 L (22-30) mmol/L Calcium 8.1 L (8.4-10.2) mg/dL Magnesium 2.4 H (1.6-2.3) mg/dL Total Protein 5.2 L (6.3-8.2) g/dL Albumin 2.5 L (3.5-5.0) g/dL Microbiology - Last 24 Hours (Table) 08/01/23 05:45 Blood Culture - Preliminary Blood 08/01/23 14:42 Nasal Screen MRSA/MSSA - Final Nasal Swab 08/01/23 08:45 Urine Culture - Final Urine,Clean Catch
--- NOTE | 2023-08-03 15:50 | P.PN ---
Subjective Progress Note Date: 08/02/23 Principal diagnosis: Reason for follow-up is sepsis, ileus and possible aspiration pneumonia Patient is a 80-year-old male with a past medical history significant for atrial fibrillation hypertension hyperlipidemia [place] did have history of Hodgkin lymphoma and prostate cancer splenectomy as a part of staging for the Hodgkin lymphoma back in the 70s presenting to the ER for evaluation of abdominal pain and also have an episode of vomiting and apparently the patient did have diarrhea prior to coming to the hospital patient did have a CT abdominal pelvis concerning for left lower lobe airspace disease and there was also concerning for ileus with initial concern for sepsis secondary to abdominal source. On today's evaluation that is 08/02/2023, the patient did have resolution of his fever and is afebrile today, patient is on room air, the patient denies chest pain shortness of breath or cough, patient denies nausea no vomiting abdominal pain has resolved and denies having any diarrhea. Patient white count is 12.9, creatinine 1.02 Objective - Vital Signs Vital signs: Vital Signs Temp 98.7 F 08/02/23 08:00 Pulse 83 08/02/23 11:00 Resp 20 08/02/23 11:00 BP 102/58 08/02/23 11:00 Pulse Ox 95 08/02/23 11:00 FiO2 Intake & Output 08/01/23 08/02/23 08/02/23 18:59 06:59 18:59 Intake Total 3823.864 7328.891 369.639 Output Total 460 385 260 Balance 3992.676 6278.891 109.639 Weight 65.771 kg 74.1 kg 74.1 kg Intake: IV 1560 1560 360 Azithromycin 500 mg In 250 Sodium Chloride 0.9% 250 ml @ 250 mls/hr IVPB ONCE STA Rx#:[id number] Magnesium Sulfate-D5w Pmx 100 1 gm In Dextrose/Water 1 100ml.bag @ 100 mls/hr IVPB Q1H [facility] Rx#: [id number] Piperacillin-Tazobactam 3 100 .375 gm In Sodium Chloride 0.9% 100 ml @ 200 mls/hr IVPB ONCE ST[facility] Rx#:[id number] Potassium Chloride 10 meq 200 In Water For Injection 1 100ml.bag @ 100 mls/hr IVPB Q1H [facility] Rx#: [id number] Sodium Chloride 0.9% 1, 910 1560 360 000 ml @ 50 mls/hr IV . Q20H [facility] Rx#:[id number] Intake, IV Titration 15.292 212.891 9.639 Amount Norepinephrine 32 mg In 15.292 37.891 9.639 Sodium Chloride 0.9% 218 ml @ 0.03 MCG/KG/MIN 0. 925 mls/hr IV .Q24H [facility] Rx#:[id number] Piperacillin-Tazobactam 3 175 .375 gm In Sodium Chloride 0.9% 100 ml @ 25 mls/hr IVPB Q8H [facility] Rx#: [id number] Output: Urine 460 385 260 Uretheral ([place]ays) 50 Other: Voiding Method Indwelling Catheter Indwelling Catheter Indwelling Catheter - Exam GENERAL DESCRIPTION: An elderly male lying in bed in no distress RESPIRATORY SYSTEM: Unlabored breathing , decreased breath sounds at bases HEART: S1 S2 regular rate and rhythm , ABDOMEN: Soft , no tenderness EXTREMITIES: No edema feet - Labs CBC & Chem 7: 08/03/23 04:28 08/03/23 04:28 Labs: Abnormal Lab Results - Last 24 Hours (Table) 08/01/23 08/01/23 08/01/23 Range/Units 12:09 12:51 20:32 WBC (3.8-10.6) k/uL RBC (4.30-5.90) m/uL Hgb (13.0-17.5) gm/dL Hct (39.0-53.0) % Sodium 129 L 128 L (137-145) mmol/L Carbon Dioxide 20 L 19 L (22-30) mmol/L BUN 22 H 22 H (9-20) mg/dL Glucose 102 H (74-99) mg/dL Calcium 7.7 L 7.6 L (8.4-10.2) mg/dL Alkaline Phosphatase (38-126) U/L Total Protein (6.3-8.2) g/dL Albumin (3.5-5.0) g/dL Procalcitonin 4.27 H (0.02-0.09) ng/mL 08/02/23 08/02/23 Range/Units 03:38 03:38 WBC 12.9 H (3.8-10.6) k/uL RBC 3.77 L (4.30-5.90) m/uL Hgb 11.4 L D (13.0-17.5) gm/dL Hct 34.9 L (39.0-53.0) % Sodium 131 L (137-145) mmol/L Carbon Dioxide 18 L (22-30) mmol/L BUN 22 H (9-20) mg/dL Glucose (74-99) mg/dL Calcium 7.8 L (8.4-10.2) mg/dL Alkaline Phosphatase 132 H (38-126) U/L Total Protein 5.0 L (6.3-8.2) g/dL Albumin 2.4 L (3.5-5.0) g/dL Procalcitonin (0.02-0.09) ng/mL Assessment and Plan (1) Pneumonia Current Visit: Yes Status: Acute Code(s): J18.9 - PNEUMONIA, UNSPECIFIED ORGANISM SNOMED Code(s): 218941958 (2) Sepsis Current Visit: Yes Status: Acute Code(s): A41.9 - SEPSIS, UNSPECIFIED ORGANISM SNOMED Code(s): 78340770 Plan: 1patient presented hospital with sepsis/septic shock in this patient who did have a fever tachycardia hypotension requiring pressor support patient predominately have abdominal symptoms of pain and did have diarrhea with a recent diagnosis of colitis with a question of ischemic versus infectious colitis 2-CT abdominal pelvis also shows evidence of left lower lobe pneumonia and patient did have vomiting before coming to the hospital with question of possible aspiration pneumonia however the patient did not have significant respiratory symptoms 3-patient did have a history of splenectomy and lymphoma not on any chemotherapy currently 4-patient to continue with Zosyn 3.375 g every 8 hours while waiting for the workup to be completed Dictation was produced using [employer] dictation software. please excuse any grammatical, word or spelling errors. Time with Patient: Less than 30
--- NOTE | 2023-08-03 15:51 | P.PN ---
Subjective Progress Note Date: 08/03/23 Principal diagnosis: Reason for follow-up is sepsis, ileus and possible aspiration pneumonia Patient is a 80-year-old male with a past medical history significant for atrial fibrillation hypertension hyperlipidemia [place] did have history of Hodgkin lymphoma and prostate cancer splenectomy as a part of staging for the Hodgkin lymphoma back in the 70s presenting to the ER for evaluation of abdominal pain and also have an episode of vomiting and apparently the patient did have diarrhea prior to coming to the hospital patient did have a CT abdominal pelvis concerning for left lower lobe airspace disease and there was also concerning for ileus with initial concern for sepsis secondary to abdominal source. On today's evaluation that is 08/03/2023, the patient remains to be afebrile, patient is currently breathing comfortably on room air, the patient denies chest pain and no significant cough, patient denies abdominal pain, no nausea no vomiting or any diarrhea has been reported. Patient white count is 13.1, creatinine 0.75 cultures currently pending Objective - Vital Signs Vital signs: Vital Signs Temp 97.5 F L 08/03/23 08:00 Pulse 91 08/03/23 08:00 Resp 18 08/03/23 08:00 BP 121/68 08/03/23 08:00 Pulse Ox 98 08/03/23 08:00 FiO2 Intake & Output 08/02/23 08/03/23 08/03/23 18:59 06:59 18:59 Intake Total 569.639 50 Output Total 415 250 Balance 154.639 -200 Weight 74.1 kg Intake: IV 560 50 Sodium Chloride 0.9% 1, 560 50 000 ml @ 50 mls/hr IV . Q20H [facility] Rx#:[id number] Intake, IV Titration 9.639 Amount Norepinephrine 32 mg In 9.639 Sodium Chloride 0.9% 218 ml @ 0.03 MCG/KG/MIN 0. 925 mls/hr IV .Q24H [facility] Rx#:[id number] Output: Urine 415 250 Other: Voiding Method Indwelling Catheter Bedside Commode Bedside Commode Urinal Urinal - Exam GENERAL DESCRIPTION: An elderly male lying in bed in no distress RESPIRATORY SYSTEM: Unlabored breathing , decreased breath sounds at bases HEART: S1 S2 regular rate and rhythm , ABDOMEN: Soft , no tenderness EXTREMITIES: No edema feet - Labs CBC & Chem 7: 08/03/23 04:28 08/03/23 04:28 Labs: Abnormal Lab Results - Last 24 Hours (Table) 08/03/23 08/03/23 Range/Units 04:28 04:28 WBC 13.1 H (3.8-10.6) k/uL RBC 3.84 L (4.30-5.90) m/uL Hgb 11.1 L (13.0-17.5) gm/dL Hct 34.9 L (39.0-53.0) % Sodium 131 L (137-145) mmol/L Potassium 3.4 L (3.5-5.1) mmol/L Carbon Dioxide 20 L (22-30) mmol/L Calcium 8.1 L (8.4-10.2) mg/dL Magnesium 2.4 H (1.6-2.3) mg/dL Total Protein 5.2 L (6.3-8.2) g/dL Albumin 2.5 L (3.5-5.0) g/dL Microbiology - Last 24 Hours (Table) 08/01/23 14:42 Nasal Screen MRSA/MSSA - Final Nasal Swab 08/01/23 08:45 Urine Culture - Final Urine,Clean Catch 08/01/23 05:45 Blood Culture - Preliminary Blood Assessment and Plan (1) Leukocytosis Current Visit: Yes Status: Acute Code(s): D72.829 - ELEVATED WHITE BLOOD CELL COUNT, UNSPECIFIED SNOMED Code(s): 738620991 (2) Pneumonia Current Visit: Yes Status: Acute Code(s): J18.9 - PNEUMONIA, UNSPECIFIED ORGANISM SNOMED Code(s): 917683350 Plan: 1patient presented hospital with sepsis/septic shock in this patient who did have a fever tachycardia hypotension requiring pressor support patient predominately have abdominal symptoms of pain and did have diarrhea with a recent diagnosis of colitis and initial concern for possible ischemic versus infectious colitis 2-CT abdominal pelvis also shows evidence of left lower lobe pneumonia and patient did have vomiting before coming to the hospital with question of possibl e aspiration pneumonia however the patient did not have significant respiratory symptoms 3-patient has shown some clinical improvement and we will continue with Zosyn 3.375 g every 8 hours and monitor clinical course closely Dictation was produced using [employer] dictation software. please excuse any g rammatical, word or spelling errors. Time with Patient: Less than 30
--- NOTE | 2023-08-03 16:59 | P.PN ---
Subjective Progress Note Date: 08/03/23 CHIEF COMPLAINT: Abdominal pain HISTORY OF PRESENT ILLNESS: Patient remains in the ICU. He was up in bedside chair this afternoon. He is having flatus. He did complain of epigastric abdominal pain. Denies any nausea or vomiting. No bowel movement. He is currently on MedSurg overflow. Afebrile. WBC up from 12.9 to 13.1 sodium 131 potassium 3.4 creatinine 0.75 abdominal x-ray gaseous dilatation of the bowel which is nonspecific correlate for ileus. PHYSICAL EXAM: VITAL SIGNS: Reviewed. GENERAL: Well-developed in no acute distress. ABDOMEN: Soft. Mildly distended. Mild tenderness mid abdomen with palpation NEUROLOGIC: Alert and oriented. Cranial nerves II through XII grossly intact. ASSESSMENT: 1. Abdominal pain with abdominal distention. Recent diagnosis of colitis. Concerns for possible ischemic colitis. 2. Possible ileus 3. Right-sided pleural effusion, possible pneumonia 4. Hyponatremia 5. History of splenectomy PLAN: -Continue clear liquid diet -Potassium being corrected -Encourage patient to increase activity level -Continue supportive care Physician Mechanical Field Engineer note has been reviewed by physician. Signing provider agrees with the documented findings, assessment, and plan of care. Report Objective - Vital Signs Vital signs: Vital Signs Temp 97.4 F L 08/03/23 14:00 Pulse 87 08/03/23 14:00 Resp 16 08/03/23 14:00 BP 121/68 08/03/23 14:00 Pulse Ox 99 08/03/23 14:00 FiO2 Intake & Output 08/02/23 08/03/23 08/03/23 18:59 06:59 18:59 Intake Total 569.639 50 Output Total 415 250 Balance 154.639 -200 Weight 74.1 kg Intake: IV 560 50 Sodium Chloride 0.9% 1, 560 50 000 ml @ 50 mls/hr IV . Q20H [facility] Rx#:[id number] Intake, IV Titration 9.639 Amount Norepinephrine 32 mg In 9.639 Sodium Chloride 0.9% 218 ml @ 0.03 MCG/KG/MIN 0. 925 mls/hr IV .Q24H [facility] Rx#:[id number] Output: Urine 415 250 Other: Voiding Method Indwelling Catheter Bedside Commode Bedside Commode Urinal Urinal - Labs CBC & Chem 7: 08/03/23 04:28 08/03/23 04:28 Labs: Abnormal Lab Results - Last 24 Hours (Table) 08/03/23 08/03/23 Range/Units 04:28 04:28 WBC 13.1 H (3.8-10.6) k/uL RBC 3.84 L (4.30-5.90) m/uL Hgb 11.1 L (13.0-17.5) gm/dL Hct 34.9 L (39.0-53.0) % Sodium 131 L (137-145) mmol/L Potassium 3.4 L (3.5-5.1) mmol/L Carbon Dioxide 20 L (22-30) mmol/L Calcium 8.1 L (8.4-10.2) mg/dL Magnesium 2.4 H (1.6-2.3) mg/dL Total Protein 5.2 L (6.3-8.2) g/dL Albumin 2.5 L (3.5-5.0) g/dL Microbiology - Last 24 Hours (Table) 08/01/23 05:45 Blood Culture - Preliminary Blood 08/01/23 14:42 Nasal Screen MRSA/MSSA - Final Nasal Swab 08/01/23 08:45 Urine Culture - Final Urine,Clean Catch
[2023-08-03 19:52] LABS: Glucose,Whole Blood 80 mg/dL (70-110)
[2023-08-03 22:29] LABS: Glucose,Whole Blood 121 mg/dL (70-110)
[2023-08-04 02:40] LABS: Glucose,Whole Blood 91 mg/dL (70-110)
[2023-08-04 04:21] LABS: Basophils # (A) 0.1 k/uL (0-0.2); Basophils % (A) 1 %; Eosinophils # (A) 0.3 k/uL (0-0.7); Eosinophils % (A) 3 %; HCT 38.4 % (39.0-53.0); HGB 12.3 gm/dL (13.0-17.5); Hypochromasia Slight; Lymphocytes # (A) 0.6 k/uL (1.0-4.8); Lymphocytes % (A) 6 %; MCH 29.8 pg (25.0-35.0); MCHC 32.1 g/dL (31.0-37.0); MCV 92.7 fL (80.0-100.0); Mean Platelet Volume 7.4; Monocytes # (A) 0.6 k/uL (0-1.0); Monocytes % (A) 5 %; Neutrophils # (A) 8.8 k/uL (1.3-7.7); Neutrophils % (A) 85 %; Platelet Count 387 k/uL (150-450); RBC 4.14 m/uL (4.30-5.90); RDW 13.5 % (11.5-15.5); WBC 10.4 k/uL (3.8-10.6)
[2023-08-04 04:37] LABS: African American GFR (CKD) >90 (>60 ml/min/1.73 sqM); Anion Gap 7 mmol/L; Blood Urea Nitrogen 13 mg/dL (9-20); Calcium 8.1 mg/dL (8.4-10.2); Carbon Dioxide 19 mmol/L (22-30); Chloride 106 mmol/L (98-107); Glucose 85 mg/dL (74-99); Non-African American GFR(CKD) >90 (>60 ml/min/1.73 sqM); Potassium 3.7 mmol/L (3.5-5.1); Sodium 132 mmol/L (137-145)
[2023-08-04] MEDS: POTASSIUM CHLORIDE ER 20 MEQ TAB.ER PO SCH (05:53)
[2023-08-04] MEDS: LEVOTHYROXINE 100 MCG TAB PO SCH (05:53)
[2023-08-04 06:54] LABS: Glucose,Whole Blood 93 mg/dL (70-110)
--- NOTE | 2023-08-04 10:48 | P.PN ---
Subjective Progress Note Date: 08/04/23 Small amount of ascitic fluid in the abdomen and pelvis. There was circumferential wall thickening of the colonic splenic flexure and this was attributed to either inflammatory or infectious along with a right-sided small pleural effusion. There was some atrophic changes of the pancreatic head with increase in the size of the pancreatic duct within the body and the tail of the pancreas. Back then, the labs were all adequate. The patient was seen in the emergency department and the patient was discharged home on Augmentin 875 mg twice daily and he was given a total of 10-day course. The patient presented back again to the emergency department on 07/28/2023 he was given Bentyl and Pepcid. Note that during his second emergency department visit, the patient was having also some diarrhea and he had diminished oral intake. Subsequently, he came into the emergency department on 08/01/2023 for ongoing abdominal pain and he was dehydrated as the patient was having ongoing diarrhea along with abdominal pain. He also had number of episodes of emesis along with nausea. No reported GI bleeding. No hematemesis. No bright red blood per rectum. During this current emergency department visit, the patient was found to have a hemoglobin of 14.4 with a white cell count of 5.8 and a platelet count of 423. His sodium level was down to 127 with a BUN of 19 and a creatinine of 1.01. UA was negati ve. The viral screen was negative. LFTs were normal with an alkaline phosphatase of 138, AST of 75 with an ALT of 27 and a bilirubin of 1.1. Amylase and lipase were also not elevated. The patient was given another CAT scan of the abdomen and pelvis and the patient was found to have some left lower lobe airspace opacity and dilatation of the loops of the small bowel in the large amount of stool suggestive of ileus. The patient also has cardiomegaly and small right-sided pleural effusion. In the emergency department, the patient was hypotensive and was given a total of 3 L of IV fluids and subsequently due to his underlying hypotension he was started on pressors with norepinephrine. He was noted to have a fever with a temperature one 1.2. He was started on Zosyn and vancomycin and following that he was transferred to the intensive care unit. He is known to have cardiomyopathy with an ejection fraction of 35 to 40% and his last echocardiogram was done in 2019. He is also known to have coronary artery disease with previous coronary artery bypass surgery, chronic A-fib, hypothyroidism and hyperlipidemia. He is also known to have previous history of prostate cancer and history of Hodgkin's lymphoma and the patient has undergone splenectomy followed by chemotherapy and radiation therapy between the years of 1976 and 1977. His prostate cancer was in June 2020. He has also undergone previous orthopedic surgeries including a total left hip arthroplasty. On today's evaluation of 08/02/2023, the patient is being seen in follow-up in the intensive care unit. The patient is doing well. No specific complaints. Abdomen is less tender compared to yesterday and the firmness is also improved. The patient has bowel sounds. No bowel movement activity yet. Suspect ischemic colitis and ileus. The procalcitonin level was elevated at 4.2. The patient had blood culture sent that are negative and the patient remains on IV Zosyn. IV fluids are running at 830 cc an hour of normal saline and the patient remains on norepinephrine 0.06 mcg/kg/min. The white cell count is at 12.9 with a hemoglobin of 11.4 and a platelet count of 365. BUN is at 22 with a creatinine of 1.02. Sodium level is at 131. The patient is currently on room air oxygen. No sinus tachycardia. He remains in a sinus rhythm. On 08/03/2023, the patient still having some abdominal pain but missed she had no nausea. No emesis.He was taking some clear liquid diet yesterday. However, this morning, he has no appetite. Abdominal x-ray showed gaseous dilatation of the bowel with a nonspecific bowel gas pattern consistent with an ileus. The patient remains on IV fluids. The patient remains on IV Zosyn. Procalcitonin level was elevated at time of admission. Nevertheless, the cultures came back negative. The blood culture preliminary is showing no growth. The white cell count is at 13.2 with a hemoglobin of 11.1 and a platelet count of 412. Sodium is 131 with a potassium level of 3.4, MI is 18 with a creatinine of 0.5. The patient remains on IV Zosyn. Patient is on Lovenox for DVT prophylaxis 40 mg subcu on a daily basis. IV fluids are running at a rate of 50 cc an hour. On 08/04/2023, the patient is essentially unchanged compared to yesterday. Still having abdominal tenderness. No bowel movements yet. Bowel sounds are still hypoactive. Remains on IV Zosyn. Hemodynamically stable. Procalcitonin level is on the decline. He remains n.p.o. He was given some clear liquid diet. His appetite is extremely poor and he does not want to take anything orally. Patient remains on Lovenox for DVT prophylaxis. The white cell count is at 10.4, hemoglobin 12.3 And the platelet count is at 387. Sodium is at 132 with a potassium level of 3.7 and a chloride is 106 with a bicarb of 19 and a BN of 13 and a creatinine of 0.67. The patient is currently on room air oxygen. No labored breathing at this point in time. IV fluids are running at a rate of 50 cc an hour of normal saline. Objective - Vital Signs Vital signs: Vital Signs Temp 97.7 F 08/04/23 08:00 Pulse 92 08/04/23 08:00 Resp 14 08/04/23 08:00 BP 113/65 08/04/23 08:00 Pulse Ox 96 08/04/23 08:00 FiO2 Intake & Output 08/03/23 08/04/23 08/04/23 18:59 06:59 18:59 Intake Total 600 50 Output Total 300 325 Balance 300 -275 Intake: IV 50 Sodium Chloride 0.9% 1, 50 000 ml @ 50 mls/hr IV . Q20H [facility] Rx#:[id number] Intake, IV Titration 600 Amount Sodium Chloride 0.9% 1, 600 000 ml @ 50 mls/hr IV . Q20H [facility] Rx#:[id number] Output: Urine 300 325 Other: Voiding Method Bedside Commode Bedside Commode Urinal Urinal - Exam General: Ill-appearing, no distress, appears at stated age, the patient is currently on room air with a pulse ox of 96 to 97% Head exam was generally normal. There was no scleral icterus or corneal arcus. Mucous membranes were moist. Derm: warm, dry Eyes: EOMI, no lid lag, anicteric sclera, pupils equal round reactive to light ENT: Nose and ears atraumatic, mucous membranes dry Cardiovascular: S1S2 reg, n soft systolic ejection murmur over the left apex. The patient also has a scar of previous thoracotomy Lungs: Rhonchi left base, no wheeze, no accessory muscle use, diminished breath sounds right lung base consistent with pleural effusion Abdominal: soft, tender to palpation diffusely, no guarding, scar of previous abdominal surgeries noted. The patient has no bowel sounds at this point in time. No rebound tenderness. No guarding. No organomegaly. Ext: no gross muscle atrophy, no contractures Neuro: CN II-XII grossly intact, No focal neuro deficits Psych: Alert, oriented, appropriate affect - Labs CBC & Chem 7: 08/04/23 03:47 08/04/23 03:47 Labs: Abnormal Lab Results - Last 24 Hours (Table) 08/03/23 08/03/23 08/04/23 Range/Units 12:12 22:26 03:47 RBC 4.14 L (4.30-5.90) m/uL Hgb 12.3 L (13.0-17.5) gm/dL Hct 38.4 L (39.0-53.0) % Neutrophils # 8.8 H (1.3-7.7) k/uL Lymphocytes # 0.6 L (1.0-4.8) k/uL Sodium (137-145) mmol/L Carbon Dioxide (22-30) mmol/L POC Glucose (mg/dL) 121 H (70-110) mg/dL Calcium (8.4-10.2) mg/dL Procalcitonin 2.11 H (0.02-0.09) ng/mL 08/04/23 Range/Units 03:47 RBC (4.30-5.90) m/uL Hgb (13.0-17.5) gm/dL Hct (39.0-53.0) % Neutrophils # (1.3-7.7) k/uL Lymphocytes # (1.0-4.8) k/uL Sodium 132 L (137-145) mmol/L Carbon Dioxide 19 L (22-30) mmol/L POC Glucose (mg/dL) (70-110) mg/dL Calcium 8.1 L (8.4-10.2) mg/dL Procalcitonin (0.02-0.09) ng/mL Microbiology - Last 24 Hours (Table) 08/01/23 05:45 Blood Culture - Preliminary Blood Assessment and Plan Plan: Acute hypotension/shock, a combination of hypovolemic and septic in nature, the patient is currently on normal saline at rate of 50 cc an hour. The patient was adequately resuscitated with IV fluids. Pressors were discontinued also yesterday. He remains on room air oxygen. Abdominal pain/diarrhea, currently under investigation. About underlying colit is/ischemic/infectious in a patient was being treated with Augmentin on outpatient basis. Possibility of C. difficile colitis cannot be completely ruled out. The patient has not had any bowel movement over the past 24 hours. As such, CT for evaluation was not done. Ileus with small bowel distention, versus partial small bowel obstruction, remains n.p.o., abdomen is still slightly distended. Bowel sounds are hypoactive and the patient's follow-up abdominal film from today showed nonspecific bowel gas pattern/ileus. Right-sided pleural effusion along with some inflammatory changes in the left lung base. Consider possibility of a new onset pneumonia in the left lower lobe although clinically, the presentation is not consistent with pneumonia CHF with impaired ejection fraction of 35 to 40% with chronic systolic heart failure based on echocardiogram in 2019, the patient has an AICD in place, repeat echocardiogram showed an ejection fraction of around 30 to 35% along with global hypokinesis. Coronary artery disease previous bypass surgery and the patient's most recent cardiac catheterization is from May 2021 and this indicated patent GOMEZ to LAD and patent SVG to PDA and occluded SVG to OM1, OM 2 and diagonal. The [place] coronary arteries were also disease. Medical management was offered to this patient. Hyperlipidemia Hypothyroidism History of Hodgkin's lymphoma with a previous splenectomy followed by chemoradiation therapy back in History of prostate cancer, UA is negative at this point in time, the patient has been treated with therapy in the past Hyponatremia, likely hypovolemic in nature secondary to diarrhea, sodium level is improving Plan Clinically unchanged compared to yesterday Procalcitonin level is improving Hemodynamically stable Ongoing abdominal discomfort and some tenderness in addition to absent bowel sounds Keep the patient n.p.o. Obtain a PICC line regarding the possibility of TPN administration at the later stage Continue IV fluids at the rate of 50 cc an hour and the patient is currently off pressors General surgery consultation is appreciated No significant nausea at this point in time. If needed, will put an NG tube Echo was noted Hold antihypertensive medication including Lotensin and metoprolol and Aldactone at this point in time Lovenox for DVT prophylaxis Continue Synthroid 50 mg IV every 24 hours Patient is currently on room air oxygen Will continue to follow, will keep the patient in the intensive care unit for now.
[2023-08-04] MEDS: LIDOCAINE 1% INJ 10MG/ML (20 ML MDV) SQ ONE (11:01)
--- NOTE | 2023-08-04 11:16 | P.PN ---
Subjective Progress Note Date: 08/04/23 No new complaints. Still c/o mild abd pain in the RLQ. No diarrhea. Afebrile. Gen: In NAD, non-toxic, cachectic appearing elderly man HEENT: normocephalic, atraumatic, hearing acuity is intant, mucous membranes moist CVS: perfusing all extremities well, no pitting edema, Respiratory: symmetric chest expansion, no accessory muscle use, GI: soft, tenderness to palpation in the right lower quadrant, ND, : no suprapubic tenderness, no CVA tenderness MSK/Derm: no rashes, cyanosis Neuro: CN II-XII intact, no motor weakness, Psych: cooperative, euthymic mood, judgment and insight is intact Hospital course: Patient is a 72-year-old male with a history of Hodgkin's lymphoma status post chemo radiation and splenectomy in the , atrial fibrillation, dyslipidemia, coronary artery disease with myocardial infarction and coronary artery bypass surgery, and prostate cancer who presented to the emergency department with complaints of abdominal pain. She had been seen in the ER on 07/[address] that showed possible colitis and at that time he was started on a course of amoxicillin, he then developed diarrhea and return to the ER on 07/28 where he was told to stop the amoxicillin. He represented today due to continued abdominal pain. Laboratory analysis in the ER included CBC, CMP, CRP, lipase, and urinalysis which were remarkable for sodium of 127 and C-reactive protein of 17. Influenza A/B/RSV/COVID-19 PCR testing was negative. Initially on presentation patient had stable vital signs but was noted to have a fever of 101.2. Slightly after presentation patient became hypotensive requiring 1.5 L of fluid resuscitation. He remained hypotensive and therefore was started on norepinephrine. Repeat CT abdomen pelvis obtained today demonstrates new left lower lobe airspace opacities, dilation of the small bowel loops with large amount of stool, cardiomegaly with right-sided pleural effusion and anasarca as well as heterogeneous enhancement of the liver consistent with congestive heart failure. Chest x-ray Confirmed left basilar infiltrate. He was started on vanc omycin and Zosyn. Arrangements were made for admission to the ICU. He was seen by pulmonary, infectious disease, and general surgery. Antibiotics were optimized to Zosyn only. Echocardiogram reviewed which demonstrates an ejection fraction of 30 to 35% with severe global hypokinesis. Assessment/Plan: Septic shock in an immunocompromised patient with hx of splenectomy Probable pneumonia versus colitis -Zosyn 3.375 g every 8 hours IV piggyback day #3 -Sputum culture pending -blood cultures NGTD -Pulmonary note reviewed: Continue with supportive care. -Hold home metoprolol, spironolactone, and Benzapril until blood pressures stabilize -Infectious diseases note reviewed: Concerns for ischemic versus infectious colitis, does not feel there are symptoms consistent with pneumonia. Continue with Zosyn Abdominal pain Possible ileus and constipation -General surgery consult reviewed. Possible ischemic colitis versus ileus -Hold Bentyl -Clear Liquid diet -Pulm considering TPN -increase frequency of PRN zofran to q4h Compensated Systolic CHF, EF 30 to 35% - monitor fluid status closely - all HF meds held given hypotension Hyponatremia, hypovolemic, improving -Decrease NS to 50 cc/ hr due to hx of CHF -Hold spironolactone Chronic: Atrial fibrillation Coronary artery disease with history of myocardial infarction status post coronary artery bypass grafting Hypothyroidism Dyslipidemia - changed levothyroxine from IV to PO DVT prophylaxis: lovenox Anticipated discharge date: Pending Clinical Course Anticipated discharge place: Pending Clinical Course This dictation was prepared using Clicker voice recognition software. Though every attempt is made to correct errors during dictation some may still exist. Objective - Vital Signs Vital signs: Vital Signs Temp 97.7 F 08/04/23 08:00 Pulse 92 08/04/23 08:00 Resp 14 08/04/23 08:00 BP 113/65 08/04/23 08:00 Pulse Ox 96 08/04/23 08:00 FiO2 Intake & Output 08/03/23 08/04/23 08/04/23 18:59 06:59 18:59 Intake Total 600 50 Output Total 300 325 Balance 300 -275 Weight 74.1 kg Intake: IV 50 Sodium Chloride 0.9% 1, 50 000 ml @ 50 mls/hr IV . Q20H [facility] Rx#:[id number] Intake, IV Titration 600 Amount Sodium Chloride 0.9% 1, 600 000 ml @ 50 mls/hr IV . Q20H [facility] Rx#:[id number] Output: Urine 300 325 Other: Voiding Method Bedside Commode Bedside Commode Bedside Commode Urinal Urinal Urinal - Labs CBC & Chem 7: 08/04/23 03:47 08/04/23 03:47 Labs: Abnormal Lab Results - Last 24 Hours (Table) 08/03/23 08/03/23 08/04/23 Range/Units 12:12 22:26 03:47 RBC 4.14 L (4.30-5.90) m/uL Hgb 12.3 L (13.0-17.5) gm/dL Hct 38.4 L (39.0-53.0) % Neutrophils # 8.8 H (1.3-7.7) k/uL Lymphocytes # 0.6 L (1.0-4.8) k/uL Sodium (137-145) mmol/L Carbon Dioxide (22-30) mmol/L POC Glucose (mg/dL) 121 H (70-110) mg/dL Calcium (8.4-10.2) mg/dL Procalcitonin 2.11 H (0.02-0.09) ng/mL 08/04/23 Range/Units 03:47 RBC (4.30-5.90) m/uL Hgb (13.0-17.5) gm/dL Hct (39.0-53.0) % Neutrophils # (1.3-7.7) k/uL Lymphocytes # (1.0-4.8) k/uL Sodium 132 L (137-145) mmol/L Carbon Dioxide 19 L (22-30) mmol/L POC Glucose (mg/dL) (70-110) mg/dL Calcium 8.1 L (8.4-10.2) mg/dL Procalcitonin (0.02-0.09) ng/mL Microbiology - Last 24 Hours (Table) 08/01/23 05:45 Blood Culture - Preliminary Blood
--- NOTE | 2023-08-04 11:25 | IR ---
EXAMINATION TYPE: IR cvc insert >=5 years DATE OF EXAM: 08/04/2023 COMPARISON: NONE HISTORY: Fluoroscopy time. Fluoroscopy was provided to the referring clinician.
[2023-08-04 11:53] LABS: Glucose,Whole Blood 86 mg/dL (70-110)
--- NOTE | 2023-08-04 12:48 | P.OP ---
Date of Procedure: 08/04/23 Description of Procedure: Date of Procedure: Preoperative Diagnosis: Need for long-term IV antibiotic access. Postoperative Diagnosis: Same. Procedure(s) Performed: Ultrasound-guided cannulation right basilic vein. Insertion of peripherally inserted central catheter under fluoroscopic guidance. Anesthesia: local (1% Xylocaine.) Surgeon: Davon Estimated Blood Loss (ml): 5 IV fluids (ml): 0 Urine output (ml): 0 Pathology: none sent Condition: stable Disposition: no change Indications for Procedure: Patient is a patient will require long-term IV antibiotics as an outpatient patient is offered a PICC line to allow for intravenous administration of antibiotics. Description of Procedure: Patient was brought to the special procedure suite. The right upper extremity sterilely prepped and draped in usual manner. Ultrasound was utilized to identify the basilic vein which was normally compressible free of visible thrombus. Permenant image was stored. 1% Xylocaine was utilized for local anesthesia tissues overlying the vein. Through this anesthetized area and with the aid of ultrasound a micropuncture needle was utilized to cannulate the vein. Once cannulated, Softip guidewire was advanced into the vein. The needle was withdrawn and a micropuncture sheath and dilator advanced over the guidewire. The guidewire was withdrawn and exchanged for the PICC guidewire and measured to the cavoatrial junction. The catheter was cut to size and advanced into the cavoatrial junction without resistance. The sheath was peeled away. Blood was easily withdrawn through the catheter and the catheter was then flushed with heparinized saline solution and secured to the skin. Patient tolerated procedure well and was returned to their room in satisfactory and stable condition.
--- NOTE | 2023-08-04 13:00 | P.PN ---
Subjective Progress Note Date: 08/04/23 CHIEF COMPLAINT: Abdominal pain HISTORY OF PRESENT ILLNESS: Patient remains in the ICU. Patient sitting in bedside chair. He is having flatus. No bowel movement. Some mild epigastric abdominal discomfort. Afebrile. White count has normalized. Denies any nausea or vomiting. Appetite is decreased. Currently on clears. WBC is 10.4 Hgb 12.3 platelets 387 Na 132 PHYSICAL EXAM: VITAL SIGNS: Reviewed. GENERAL: Well-developed in no acute distress. ABDOMEN: Soft. Mildly distended. Mild tenderness mid abdomen with palpation NEUROLOGIC: Alert and oriented. Cranial nerves II through XII grossly intact. ASSESSMENT: 1. Abdominal pain with abdominal distention. Recent diagnosis of colitis. Concerns for possible ischemic colitis. 2. Possible ileus 3. Right-sided pleural effusion, possible pneumonia 4. Hyponatremia 5. History of splenectomy PLAN: -Advance diet to full liquids -Encourage patient to increase activity level -Continue supportive care Physician Production Control Coordinating Clerk note has been reviewed by physician. Signing provider agrees with the documented findings, assessment, and plan of care. Report Objective - Vital Signs Vital signs: Vital Signs Temp 97.7 F 08/04/23 08:00 Pulse 92 08/04/23 08:00 Resp 14 08/04/23 08:00 BP 113/65 08/04/23 08:00 Pulse Ox 96 08/04/23 08:00 FiO2 Intake & Output 08/03/23 08/04/23 08/04/23 18:59 06:59 18:59 Intake Total 600 50 Output Total 300 325 Balance 300 -275 Weight 74.1 kg Intake: IV 50 Sodium Chloride 0.9% 1, 50 000 ml @ 50 mls/hr IV . Q20H [facility] Rx#:[id number] Intake, IV Titration 600 Amount Sodium Chloride 0.9% 1, 600 000 ml @ 50 mls/hr IV . Q20H [facility] Rx#:[id number] Output: Urine 300 325 Other: Voiding Method Bedside Commode Bedside Commode Bedside Commode Urinal Urinal Urinal - Labs CBC & Chem 7: 08/04/23 03:47 08/04/23 03:47 Labs: Abnormal Lab Results - Last 24 Hours (Table) 08/03/23 08/03/23 08/04/23 Range/Units 12:12 22:26 03:47 RBC 4.14 L (4.30-5.90) m/uL Hgb 12.3 L (13.0-17.5) gm/dL Hct 38.4 L (39.0-53.0) % Neutrophils # 8.8 H (1.3-7.7) k/uL Lymphocytes # 0.6 L (1.0-4.8) k/uL Sodium (137-145) mmol/L Carbon Dioxide (22-30) mmol/L POC Glucose (mg/dL) 121 H (70-110) mg/dL Calcium (8.4-10.2) mg/dL Procalcitonin 2.11 H (0.02-0.09) ng/mL 08/04/23 Range/Units 03:47 RBC (4.30-5.90) m/uL Hgb (13.0-17.5) gm/dL Hct (39.0-53.0) % Neutrophils # (1.3-7.7) k/uL Lymphocytes # (1.0-4.8) k/uL Sodium 132 L (137-145) mmol/L Carbon Dioxide 19 L (22-30) mmol/L POC Glucose (mg/dL) (70-110) mg/dL Calcium 8.1 L (8.4-10.2) mg/dL Procalcitonin (0.02-0.09) ng/mL Microbiology - Last 24 Hours (Table) 08/01/23 05:45 Blood Culture - Preliminary Blood
--- NOTE | 2023-08-04 15:15 | P.PN ---
Subjective Progress Note Date: 08/04/23 Principal diagnosis: Reason for follow-up is sepsis, ileus and possible aspiration pneumonia Patient is a 80-year-old male with a past medical history significant for atrial fibrillation hypertension hyperlipidemia PA did have history of Hodgkin lymphoma and prostate cancer splenectomy as a part of staging for the Hodgkin lymphoma back in the 70s presenting to the ER for evaluation of abdominal pain and also have an episode of vomiting and apparently the patient did have diarrhea prior to coming to the hospital patient did have a CT abdominal pelvis concerning for left lower lobe airspace disease and there was also concerning for ileus with initial concern for sepsis secondary to abdominal source. On today's evaluation that is 08/04/2023, the patient is afebrile, patient is on room air, the patient denies chest pain shortness of breath did have occasional dry cough, patient denies nausea no vomiting abdominal pain has decreased intensity mention no bowel movements however tolerating his diet. Patient white count is normalized to 10.4, creatinine 0.67 blood cultures currently pending Objective - Vital Signs Vital signs: Vital Signs Temp 97.7 F 08/04/23 08:00 Pulse 92 08/04/23 08:00 Resp 14 08/04/23 08:00 BP 113/65 08/04/23 08:00 Pulse Ox 96 08/04/23 08:00 FiO2 Intake & Output 08/03/23 08/04/23 08/04/23 18:59 06:59 18:59 Intake Total 600 50 Output Total 300 325 Balance 300 -275 Weight 74.1 kg Intake: IV 50 Sodium Chloride 0.9% 1, 50 000 ml @ 50 mls/hr IV . Q20H [facility] Rx#:[id number] Intake, IV Titration 600 Amount Sodium Chloride 0.9% 1, 600 000 ml @ 50 mls/hr IV . Q20H [facility] Rx#:[id number] Output: Urine 300 325 Other: Voiding Method Bedside Commode Bedside Commode Bedside Commode Urinal Urinal Urinal - Exam GENERAL DESCRIPTION: An elderly male lying in bed in no distress RESPIRATORY SYSTEM: Unlabored breathing , decreased breath sounds at bases HEART: S1 S2 regular rate and rhythm , ABDOMEN: Soft , no tenderness EXTREMITIES: No edema feet - Labs CBC & Chem 7: 08/04/23 03:47 08/04/23 03:47 Labs: Abnormal Lab Results - Last 24 Hours (Table) 08/03/23 08/03/23 08/04/23 Range/Units 12:12 22:26 03:47 RBC 4.14 L (4.30-5.90) m/uL Hgb 12.3 L (13.0-17.5) gm/dL Hct 38.4 L (39.0-53.0) % Neutrophils # 8.8 H (1.3-7.7) k/uL Lymphocytes # 0.6 L (1.0-4.8) k/uL Sodium (137-145) mmol/L Carbon Dioxide (22-30) mmol/L POC Glucose (mg/dL) 121 H (70-110) mg/dL Calcium (8.4-10.2) mg/dL Procalcitonin 2.11 H (0.02-0.09) ng/mL 08/04/23 Range/Units 03:47 RBC (4.30-5.90) m/uL Hgb (13.0-17.5) gm/dL Hct (39.0-53.0) % Neutrophils # (1.3-7.7) k/uL Lymphocytes # (1.0-4.8) k/uL Sodium 132 L (137-145) mmol/L Carbon Dioxide 19 L (22-30) mmol/L POC Glucose (mg/dL) (70-110) mg/dL Calcium 8.1 L (8.4-10.2) mg/dL Procalcitonin (0.02-0.09) ng/mL Microbiology - Last 24 Hours (Table) 08/01/23 05:45 Blood Culture - Preliminary Blood Assessment and Plan (1) Leukocytosis Current Visit: Yes Status: Acute Code(s): D72.829 - ELEVATED WHITE BLOOD CELL COUNT, UNSPECIFIED SNOMED Code(s): 395379538 (2) Pneumonia Current Visit: Yes Status: Acute Code(s): J18.9 - PNEUMONIA, UNSPECIFIED ORGANISM SNOMED Code(s): 693139915 Plan: 1patient presented hospital with sepsis/septic shock in this patient who did have a fever tachycardia hypotension requiring pressor support patient predominately have abdominal symptoms of pain and did have diarrhea with a recent diagnosis of colitis and initial concern for possible ischemic versus infectious colitis 2-CT abdominal pelvis also shows evidence of left lower lobe pneumonia and patient did have vomiting before coming to the hospital with question of possible aspiration pneumonia however the patient did not have significant respiratory symptoms 3-patient did have some clinical improvement temperature normalized white count has normalized, patient will continue with Zosyn 3.375 g every 8 hours and monitor clinical course closely Dictation was produced using [employer] dictation software. please excuse any grammatical, word or spelling errors. Time with Patient: Less than 30
[2023-08-04] MEDS: ALBUTEROL NEBULIZED 2.5 MG/3 ML INHALATION PRN (20:30)
[2023-08-04] MEDS: LORazepam 1 MG TAB PO STA (21:11)
[2023-08-05 01:08] LABS: Glucose,Whole Blood 90 mg/dL (70-110)
[2023-08-05 08:37] LABS: HCT 38.7 % (39.0-53.0); HGB 12.1 gm/dL (13.0-17.5); Hypochromasia Slight; MCH 28.7 pg (25.0-35.0); MCHC 31.2 g/dL (31.0-37.0); MCV 91.9 fL (80.0-100.0); Mean Platelet Volume 7.3; Platelet Count 434 k/uL (150-450); RBC 4.21 m/uL (4.30-5.90); RDW 13.6 % (11.5-15.5); WBC 9.8 k/uL (3.8-10.6)
[2023-08-05 08:58] LABS: ALT 31 U/L (4-49); AST 40 U/L (17-59); African American GFR (CKD) >90 (>60 ml/min/1.73 sqM); Albumin 2.4 g/dL (3.5-5.0); Albumin/Globulin Ratio 0.9; Alkaline Phosphatase 116 U/L (38-126); Anion Gap 7 mmol/L; Blood Urea Nitrogen 9 mg/dL (9-20); Carbon Dioxide 20 mmol/L (22-30); Chloride 105 mmol/L (98-107); Globulin 2.8 g/dL; Glucose 127 mg/dL (74-99); Non-African American GFR(CKD) >90 (>60 ml/min/1.73 sqM); Potassium 3.6 mmol/L (3.5-5.1); Sodium 132 mmol/L (137-145); Total Bilirubin 0.6 mg/dL (0.2-1.3); Total Protein 5.2 g/dL (6.3-8.2)
--- NOTE | 2023-08-05 09:55 | XR ---
EXAMINATION TYPE: XR chest 1V DATE OF EXAM: 08/05/2023 COMPARISON: 08/01/2023 HISTORY: Shortness of breath TECHNIQUE: Single frontal view of the chest is obtained. FINDINGS: There is a defibrillator. Related prior CABG surgery. There is been interval insertion of a right cheng ed PICC line is in the SVC/RA junction. There has been interval development of bibasilar opacities obscuring the costophrenic angles and carmen diaphragms consistent with pleural effusions and probable atelectasis with pneumonic infiltrates not excluded. There is no pneumothorax. Heart size is normal and the pulmonary vasculature does not appear grossly congested. No focal osseous lesions are seen. IMPRESSION: Interval worsening of acute cardiopulmonary disease compared to previous. Findings could represent CHF or by basilar pneumonias with pleural effusions. Clinical correlation and follow-up to resolution recommended.
--- NOTE | 2023-08-05 09:57 | XR ---
Single view abdomen. HISTORY: Abdominal distention. TECHNIQUE: Single supine view the abdomen was obtained. FINDINGS: There are multiple cysts surgical clips and sutures scattered throughout the abdomen. There is a left hip prosthesis. The bowel gas pattern is nonspecific and there is no evidence of obstruction or ileus. IMPRESSION: Nonspecific abdomen. No significant interval change compared to previous.
[2023-08-05] MEDS ORDERED: BENZOCAINE/MENTHOL LOZENG 1 EACH LOZENGE MUCOUS MEM PRN (10:30)
[2023-08-05 11:24] LABS: Glucose,Whole Blood 105 mg/dL (70-110)
--- NOTE | 2023-08-05 11:43 | P.PN ---
Subjective Progress Note Date: 08/05/23 Small amount of ascitic fluid in the abdomen and pelvis. There was circumferential wall thickening of the colonic splenic flexure and this was attributed to either inflammatory or infectious along with a right-sided small pleural effusion. There was some atrophic changes of the pancreatic head with increase in the size of the pancreatic duct within the body and the tail of the pancreas. Back then, the labs were all adequate. The patient was seen in the emergency department and the patient was discharged home on Augmentin 875 mg twice daily and he was given a total of 10-day course. The patient presented back again to the emergency department on 07/28/2023 he was given Bentyl and Pepcid. Note that during his second emergency department visit, the patient was having also some diarrhea and he had diminished oral intake. Subsequently, he came into the emergency department on 08/01/2023 for ongoing abdominal pain and he was dehydrated as the patient was having ongoing diarrhea along with abdominal pain. He also had number of episodes of emesis along with nausea. No reported GI bleeding. No hematemesis. No bright red blood per rectum. During this current emergency department visit, the patient was found to have a hemoglobin of 14.4 with a white cell count of 5.8 and a platelet count of 423. His sodium level was down to 127 with a BUN of 19 and a creatinine of 1.01. UA was negati ve. The viral screen was negative. LFTs were normal with an alkaline phosphatase of 138, AST of 75 with an ALT of 27 and a bilirubin of 1.1. Amylase and lipase were also not elevated. The patient was given another CAT scan of the abdomen and pelvis and the patient was found to have some left lower lobe airspace opacity and dilatation of the loops of the small bowel in the large amount of stool suggestive of ileus. The patient also has cardiomegaly and small right-sided pleural effusion. In the emergency department, the patient was hypotensive and was given a total of 3 L of IV fluids and subsequently due to his underlying hypotension he was started on pressors with norepinephrine. He was noted to have a fever with a temperature one 1.2. He was started on Zosyn and vancomycin and following that he was transferred to the intensive care unit. He is known to have cardiomyopathy with an ejection fraction of 35 to 40% and his last echocardiogram was done in 2019. He is also known to have coronary artery disease with previous coronary artery bypass surgery, chronic A-fib, hypothyroidism and hyperlipidemia. He is also known to have previous history of prostate cancer and history of Hodgkin's lymphoma and the patient has undergone splenectomy followed by chemotherapy and radiation therapy between the years of 1976 and 1977. His prostate cancer was in June 2020. He has also undergone previous orthopedic surgeries including a total left hip arthroplasty. On today's evaluation of 08/02/2023, the patient is being seen in follow-up in the intensive care unit. The patient is doing well. No specific complaints. Abdomen is less tender compared to yesterday and the firmness is also improved. The patient has bowel sounds. No bowel movement activity yet. Suspect ischemic colitis and ileus. The procalcitonin level was elevated at 4.2. The patient had blood culture sent that are negative and the patient remains on IV Zosyn. IV fluids are running at 830 cc an hour of normal saline and the patient remains on norepinephrine 0.06 mcg/kg/min. The white cell count is at 12.9 with a hemoglobin of 11.4 and a platelet count of 365. BUN is at 22 with a creatinine of 1.02. Sodium level is at 131. The patient is currently on room air oxygen. No sinus tachycardia. He remains in a sinus rhythm. On 08/03/2023, the patient still having some abdominal pain but missed she had no nausea. No emesis.He was taking some clear liquid diet yesterday. However, this morning, he has no appetite. Abdominal x-ray showed gaseous dilatation of the bowel with a nonspecific bowel gas pattern consistent with an ileus. The patient remains on IV fluids. The patient remains on IV Zosyn. Procalcitonin level was elevated at time of admission. Nevertheless, the cultures came back negative. The blood culture preliminary is showing no growth. The white cell count is at 13.2 with a hemoglobin of 11.1 and a platelet count of 412. Sodium is 131 with a potassium level of 3.4, IN is 18 with a creatinine of 0.5. The patient remains on IV Zosyn. Patient is on Lovenox for DVT prophylaxis 40 mg subcu on a daily basis. IV fluids are running at a rate of 50 cc an hour. On 08/04/2023, the patient is essentially unchanged compared to yesterday. Still having abdominal tenderness. No bowel movements yet. Bowel sounds are still hypoactive. Remains on IV Zosyn. Hemodynamically stable. Procalcitonin level is on the decline. He remains n.p.o. He was given some clear liquid diet. His appetite is extremely poor and he does not want to take anything orally. Patient remains on Lovenox for DVT prophylaxis. The white cell count is at 10.4, hemoglobin 12.3 And the platelet count is at 387. Sodium is at 132 with a potassium level of 3.7 and a chloride is 106 with a bicarb of 19 and a BN of 13 and a creatinine of 0.67. The patient is currently on room air oxygen. No labored breathing at this point in time. IV fluids are running at a rate of 50 cc an hour of normal saline. On today's evaluation of 08/05/2023, the patient is being seen for a follow-up. Abdomen is slightly tender. Bowel sounds are hypoactive. No bowel movement activity. Based on that, I obtained an abdominal x-ray that showed no significant interval change and the patient has multiple surgical clips and sutures scattered in the abdomen and bowel gas pattern that is essentially nonspecific consistent with with ileus. The chest x-ray still showing interval worsening and finding consistent with CHF and bibasilar pulmonary infiltrates and effusions. The patient however is denying having any significant respiratory distress and he is sitting up in a chair and is calm and comfortabl e. No fever. He tried to ambulate. He is on 2 L of oxygen by nasal cannula with a pulse ox of 97%. The white cell count at 9.8 with a hemoglobin 12.1 and a platelet count of 434 and the BUN is 9 with a creatinine of 0.59 and sodium levels at 132. The patient remains on IV Zosyn. The patient remains on Lovenox for DVT prophylaxis. The patient remains also on IV fluids. He was provide clear liquid diet and he was able to take some oatmeal this morning. Objective - Vital Signs Vital signs: Vital Signs Temp 98.9 F 08/05/23 07:35 Pulse 84 08/05/23 07:35 Resp 17 08/05/23 07:35 BP 110/59 08/05/23 07:35 Pulse Ox 97 08/05/23 07:35 FiO2 Intake & Output 08/04/23 08/05/23 08/05/23 18:59 06:59 18:59 Intake Total 900 Output Total 400 Balance 500 Weight 74.1 kg Intake: IV 600 Sodium Chloride 0.9% 1, 600 000 ml @ 50 mls/hr IV . Q20H [facility] Rx#:[id number] Oral 300 Output: Urine 400 Other: Voiding Method Bedside Commode Bedside Commode Urinal Urinal # Voids 1 - Exam General: Ill-appearing, no distress, appears at stated age, the patient is currently on room air with a pulse ox of 96 to 97% Head exam was generally normal. There was no scleral icterus or corneal arcus. Mucous membranes were moist. Derm: warm, dry Eyes: EOMI, no lid lag, anicteric sclera, pupils equal round reactive to light ENT: Nose and ears atraumatic, mucous membranes dry Cardiovascular: S1S2 reg, n soft systolic ejection murmur over the left apex. The patient also has a scar of previous thoracotomy Lungs: Rhonchi left base, no wheeze, no accessory muscle use, diminished breath sounds right lung base consistent with pleural effusion Abdominal: soft, tender to palpation diffusely, no guarding, scar of previous abdominal surgeries noted. The patient has no bowel sounds at this point in [place]. No rebound tenderness. No guarding. No organomegaly. Ext: no gross muscle atrophy, no contractures Neuro: CN II-XII grossly intact, No focal neuro deficits Psych: Alert, oriented, appropriate affect - Labs CBC & Chem 7: 08/05/23 08:15 08/05/23 08:15 Labs: Abnormal Lab Results - Last 24 Hours (Table) 08/05/23 Range/Units 08:15 RBC 4.21 L (4.30-5.90) m/uL Hgb 12.1 L (13.0-17.5) gm/dL Hct 38.7 L (39.0-53.0) % Microbiology - Last 24 Hours (Table) 08/01/23 05:45 Blood Culture - Preliminary Blood Assessment and Plan Plan: Acute hypotension/shock, a combination of hypovolemic and septic in nature, recovered and the patient is currently normotensive and the procalcitonin level is on the decline Ileus with small bowel distention, versus partial small bowel obstruction, abdomen is still slightly distended. Bowel sounds are hypoactive and the patient's follow-up abdominal film from today showed nonspecific bowel gas pattern/ileus. No significant interval change on today's abdominal x-ray, bowel sounds remain hypoactive Right-sided pleural effusion along with some inflammatory changes in the left lung base. Consider possibility of a new onset pneumonia in the left lower lobe although clinically, the presentation is not consistent with pneumonia CHF with impaired ejection fraction of 35 to 40% with chronic systolic heart failure based on echocardiogram in 2019, the patient has an AICD in place, repeat echocardiogram showed an ejection fraction of around 30 to 35% along with global hypokinesis. Coronary artery disease previous bypass surgery and the patient's most recent cardiac catheterization is from May 2021 and this indicated patent GOMEZ to LAD and patent SVG to PDA and occluded SVG to OM1, OM 2 and diagonal. The [place] coronary arteries were also disease. Medical management was offered to this patient. Hyperlipidemia Hypothyroidism History of Hodgkin's lymphoma with a previous splenectomy followed by chemoradiation therapy back in History of prostate cancer, UA is negative at this point in time, the patient has been treated with therapy in the past Hyponatremia, likely hypovolemic in nature secondary to diarrhea, sodium level is improving Plan Clinically unchanged compared to yesterday Procalcitonin level is improving Hemodynamically stable Abdominal examination and the abdominal folds remains unchanged O PICC line has been inserted Continue IV fluids at the rate of 50 cc an hour and the patient is currently off pressors Give Lasix 20 mg IV push as the chest x-ray showing increased pulm vas congestion and edema General surgery consultation is appreciated No significant nausea at this point in time. If needed, will put an NG tube Echo was noted Hold antihypertensive medication including Lotensin and metoprolol and Aldactone at this point in time Lovenox for DVT prophylaxis Continue Synthroid 50 mg IV every 24 hours Will continue to follow
[2023-08-05] MEDS: FUROSEMIDE 10 MG/ML 2 ML VIAL IV ONE (12:41)
[2023-08-05] MEDS: polyethylene glycoL 3350 17 GM POWD.PACK PO STA (12:41)
[2023-08-05] MEDS: SPIRONOLACTONE 25 MG TAB PO SCH (12:42)
[2023-08-05] MEDS: HYDROcodone/APAP 5-325MG 1 EACH TAB PO PRN (12:49)
--- NOTE | 2023-08-05 14:25 | P.PN ---
Subjective Progress Note Date: 08/05/23 Principal diagnosis: Reason for follow-up is sepsis, ileus and possible aspiration pneumonia Patient is a 80-year-old male with a past medical history significant for atrial fibrillation hypertension hyperlipidemia OR did have history of Hodgkin lymphoma and prostate cancer splenectomy as a part of staging for the Hodgkin lymphoma back in the 70s presenting to the ER for evaluation of abdominal pain and also have an episode of vomiting and apparently the patient did have diarrhea prior to coming to the hospital patient did have a CT abdominal pelvis concerning for left lower lobe airspace disease and there was also concerning for ileus with initial concern for sepsis secondary to abdominal source. On today's evaluation that is 08/05/2023, the patient denies any fever or any chills, patient is breathing comfortably on 2 L nasal cannula oxygen the patient denies chest pain shortness of breath, did have a cough but not bring up any sputum complaining of abdominal pain especially when he lies down still did not have any bowel movement however has been tolerating his diet and no vomiting has been reported. Patient white normal at 9.8, creatinine 0.59 blood culture has been negative so far Objective - Vital Signs Vital signs: Vital Signs Temp 98.9 F 08/05/23 07:35 Pulse 89 08/05/23 07:45 Resp 17 08/05/23 07:35 BP 110/59 08/05/23 07:35 Pulse Ox 97 08/05/23 07:35 FiO2 Intake & Output 08/04/23 08/05/23 08/05/23 18:59 06:59 18:59 Intake Total 900 Output Total 400 Balance 500 Weight 74.1 kg Intake: IV 600 Sodium Chloride 0.9% 1, 600 000 ml @ 50 mls/hr IV . Q20H [facility] Rx#:[id number] Oral 300 Output: Urine 400 Other: Voiding Method Bedside Commode Bedside Commode Urinal Urinal Urinal # Voids 1 - Exam GENERAL DESCRIPTION: An elderly male lying in bed in no distress RESPIRATORY SYSTEM: Unlabored breathing , decreased breath sounds at bases HEART: S1 S2 regular rate and rhythm , ABDOMEN: Soft , no tenderness EXTREMITIES: No edema feet - Labs CBC & Chem 7: 08/05/23 08:15 08/05/23 08:15 Labs: Abnormal Lab Results - Last 24 Hours (Table) 02/10/24 02/10/24 Range/Units 08:15 08:15 RBC 4.21 L (4.30-5.90) m/uL Hgb 12.1 L (13.0-17.5) gm/dL Hct 38.7 L (39.0-53.0) % Sodium 132 L (137-145) mmol/L Carbon Dioxide 20 L (22-30) mmol/L Creatinine 0.59 L (0.66-1.25) mg/dL Glucose 127 H (74-99) mg/dL Calcium 8.0 L (8.4-10.2) mg/dL Total Protein 5.2 L (6.3-8.2) g/dL Albumin 2.4 L (3.5-5.0) g/dL Microbiology - Last 24 Hours (Table) 08/01/23 05:45 Blood Culture - Preliminary Blood Assessment and Plan (1) Leukocytosis Current Visit: Yes Status: Acute Code(s): D72.829 - ELEVATED WHITE BLOOD CELL COUNT, UNSPECIFIED SNOMED Code(s): 614250394 (2) Pneumonia Current Visit: Yes Status: Acute Code(s): J18.9 - PNEUMONIA, UNSPECIFIED ORGANISM SNOMED Code(s): 280017170 Plan: 1patient presented hospital with sepsis/septic shock in this patient who did have a fever tachycardia hypotension requiring pressor support patient predominately have abdominal symptoms of pain and did have diarrhea with a recent diagnosis of colitis and initial concern for possible ischemic versus infectious colitis 2-CT abdominal pelvis also shows evidence of left lower lobe pneumonia and [place] did have vomiting before coming to the hospital with question of possible aspiration pneumonia however the patient did not have significant respiratory symptoms 3-patient did have some clinical improvement, the patient is afebrile white count is normal we will continue with the Zosyn waiting for bowel activity and monitor clinical course closely Dictation was produced using [employer] dictation software. please excuse any grammatical, word or spelling errors. Time with Patient: Less than 30
--- NOTE | 2023-08-05 16:17 | P.PN ---
Subjective Progress Note Date: 08/05/23 (delayed charting seen at 1045) Patient is a 72-year-old male with a history of Hodgkin's lymphoma status post chemo radiation and splenectomy in the , atrial fibrillation, dyslipidemia, coronary artery disease with myocardial infarction and coronary artery bypass surgery, and prostate cancer who presented to the emergency department with complaints of abdominal pain. She had been seen in the ER on 07/[address] that showed possible colitis and at that time he was started on a course of amoxicillin, he then developed diarrhea and return to the ER on 07/28 where he was told to stop the amoxicillin. He represented today due to continued abdominal pain. Laboratory analysis in the ER included CBC, CMP, CRP, lipase, and urinalysis which were remarkable for sodium of 127 and C-reactive protein of 17. Influenza A/B/RSV/COVID-19 PCR testing was negative. Initially on presentation patient had stable vital signs but was noted to have a fever of 101.2. Slightly after presentation patient became hypotensive requiring 1.5 L of fluid resuscitation. He remained hypotensive and therefore was started on norepinephrine. Repeat CT abdomen pelvis obtained today demonstrates new left lower lobe airspace opacities, dilation of the small bowel loops with large amount of stool, cardiomegaly with right-sided pleural effusion and anasarca as well as heterogeneous enhancement of the liver consistent with congestive heart failure. Chest x-ray Confirmed left basilar infiltrate. He was started on vancomycin and Zosyn. Arrangements were made for admission to the ICU. He was seen by pulmonary, infectious disease, and general surgery. Antibiotics were optimized to Zosyn only. He underwent echocardiogram which showed an ejection fraction of 30 to 35% with severe global hypokinesis. Patient seen and examined at bedside. He states his abdominal pain is better now. He still has not had a bowel movement. He has no nausea. He has aggravated by a cough today. Vital signs reviewed General: Nontoxic, no distress, appears at stated age Cardiovascular: S1S2 reg, no murmur Lungs: Decreased be b/l, no rales, no accessory muscle use Abdominal: Soft, nontender to palpation, no guarding Ext: No gross muscle atrophy, no edema b/l lower extremities, no contractures Neuro: CN II-XI grossly intact, no focal neuro deficits Psych: Alert, oriented, appropriate affect Assessment/Plan: Septic shock in an immunocompromised patient with hx of splenectomy Probable pneumonia versus colitis -Zosyn 3.375 g every 8 hours IV piggyback day #5 -Blood cultures negative today, MRSA nasal swab negative -Pulmonary note reviewed: Continue with supportive care. PICC line has been inserted -Infectious disease note reviewed: Continue with Zosyn -Hold home metoprolol, spironolactone, and Benzapril until blood pressures stabilize -Infectious diseases note reviewed: Concerns for ischemic versus infectious colitis, does not feel there are symptoms consistent with pneumonia. Continue with Zosyn Abdominal pain Possible ileus and constipation -General surgery note reviewed possible ischemic colitis versus ileus, currently on full liquid diet -Add MiraLAX 17 g p.o. x 1 given that the patient still has not had a bowel movement -Continue to hold Bentyl Compensated Systolic CHF, EF 30 to 35% - monitor fluid status closely -Resume spironolactone 50 mg at night, lisinopril 5 mg, anticipate resumption of metoprolol in a.m. Chronic: Atrial fibrillation Coronary artery disease with history of myocardial infarction status post coronary artery bypass grafting Hypothyroidism Dyslipidemia Hyponatremia, resolved Imaging: Abdominal x-ray, nonspecific abdomen Chest x-ray: Worsening acute cardiopulmonary disease possibly representing CHF versus bibasilar pneumonia Data Review: Labs reviewed include CBC and CMP which are remarkable for hemoglobin 12.1, sodium 132 DVT prophylaxis: Lovenox Anticipated discharge date: 2 to [address]: Home This dictation was prepared using [employer] voice recognition software. Though every attempt is made to correct errors during dictation some may still exist. Objective - Vital Signs Vital signs: Vital Signs Temp 97.7 F 08/05/23 14:00 Pulse 79 08/05/23 14:00 Resp 19 08/05/23 14:00 BP 118/64 08/05/23 14:00 Pulse Ox 97 08/05/23 14:00 FiO2 Intake & Output 08/04/23 08/05/23 08/05/23 18:59 06:59 18:59 Intake Total 900 Output Total 400 Balance 500 Weight 74.1 kg Intake: IV 600 Sodium Chloride 0.9% 1, 600 000 ml @ 50 mls/hr IV . Q20H KYLE Rx#:[id number] Oral 300 Output: Urine 400 Other: Voiding Method Bedside Commode Bedside Commode Urinal Urinal Urinal # Voids 1 - Labs CBC & Chem 7: 02/10/24 08:15 08/05/23 08:15 Labs: Abnormal Lab Results - Last 24 Hours (Table) 08/05/23 08/05/23 Range/Units 08:15 08:15 RBC 4.21 L (4.30-5.90) m/uL Hgb 12.1 L (13.0-17.5) gm/dL Hct 38.7 L (39.0-53.0) % Sodium 132 L (137-145) mmol/L Carbon Dioxide 20 L (22-30) mmol/L Creatinine 0.59 L (0.66-1.25) mg/dL Glucose 127 H (74-99) mg/dL Calcium 8.0 L (8.4-10.2) mg/dL Total Protein 5.2 L (6.3-8.2) g/dL Albumin 2.4 L (3.5-5.0) g/dL Microbiology - Last 24 Hours (Table) 08/01/23 05:45 Blood Culture - Preliminary Blood
[2023-08-05 16:35] LABS: Glucose,Whole Blood 103 mg/dL (70-110)
[2023-08-05 19:24] LABS: Glucose,Whole Blood 92 mg/dL (70-110)
[2023-08-05] MEDS: ATORVASTATIN 40 MG TAB PO SCH (20:20)
[2023-08-05] MEDS: lisinopriL 5 MG TAB PO SCH (20:20)
[2023-08-06 01:35] LABS: Glucose,Whole Blood 95 mg/dL (70-110)
[2023-08-06 06:08] LABS: Glucose,Whole Blood 85 mg/dL (70-110)
[2023-08-06 09:44] LABS: HCT 38.8 % (39.6-50.0); HGB 12.6 g/dL (13.0-17.0); MCH 28.3 pg (27.0-32.0); MCHC 32.5 g/dL (32.0-37.0); Mean Platelet Volume 9.5 FL (9.5-12.2); NRBC Per 100 WBC 0 X 10*3/uL (0.00-0.01); Platelet Count 486 X 10*3/uL (140-440); RBC 4.46 X 10*6/uL (4.40-5.60); RDW 14.1 % (11.5-14.5); WBC 13.24 X 10*3/uL (4.50-10.00)
[2023-08-06 09:57] LABS: ALT 37 U/L (10-49); AST 44 U/L (14-35); Albumin 2.9 g/dL (3.8-4.9); Albumin/Globulin Ratio 1.07 Ratio (1.60-3.17); Alkaline Phosphatase 135 U/L (41-126); BUN/Creat Ratio 10.88 Ratio (12.00-20.00); Blood Urea Nitrogen 8.7 mg/dL (9.0-27.0); Calcium 8.8 mg/dL (8.7-10.3); Carbon Dioxide 23.4 mmol/L (21.6-31.8); Chloride 99 mmol/L (96-109); Globulin 2.7 g/dL (1.6-3.3); Glucose 100 mg/dL (70-110); Potassium 3.6 mmol/L (3.5-5.5); Sodium 134 mmol/L (135-145); Total Bilirubin 0.5 mg/dL (0.3-1.2); Total Protein 5.6 g/dL (6.2-8.2)
[2023-08-06] MEDS: bisacodyL 10 MG SUPP RECTAL STA (10:56)
--- NOTE | 2023-08-06 11:23 | P.PN ---
Subjective Progress Note Date: 08/06/23 The patient states he feels well. He has no significant abdominal pain. Per the nursing staff has not had a bowel movement in several days. Patient denies any significant abdominal pain. On exam vital signs appear stable. Abdomen is soft. History of ischemic colitis. Patient will be given a suppository today. He will be watched closely. Objective - Vital Signs Vital signs: Vital Signs Temp 97.5 F L 08/06/23 07:25 Pulse 70 08/06/23 07:25 Resp 19 08/06/23 07:25 BP 155/70 08/06/23 07:25 Pulse Ox 96 08/06/23 07:25 FiO2 Intake & Output 08/05/23 08/06/23 08/06/23 18:59 06:59 18:59 Output Total 1000 150 Balance -1000 -150 Output: Urine 1000 150 Other: Voiding Method Urinal Urinal - Labs CBC & Chem 7: 08/06/23 07:20 08/06/23 07:20 Labs: Abnormal Lab Results - Last 24 Hours (Table) 08/06/23 08/06/23 Range/Units 07:20 07:20 WBC 13.24 H (4.50-10.00) X 10*3/uL Hgb 12.6 L (13.0-17.0) g/dL Hct 38.8 L (39.6-50.0) % Plt Count 486 H (140-440) X 10*3/uL Sodium 134 L (135-145) mmol/L BUN 8.7 L (9.0-27.0) mg/dL BUN/Creatinine Ratio 10.88 L (12.00-20.00) Ratio AST 44 H (14-35) U/L Alkaline Phosphatase 135 H (41-126) U/L Total Protein 5.6 L (6.2-8.2) g/dL Albumin 2.9 L (3.8-4.9) g/dL Albumin/Globulin Ratio 1.07 L (1.60-3.17) Ratio
[2023-08-06 11:28] LABS: Glucose,Whole Blood 101 mg/dL (70-110)
--- NOTE | 2023-08-06 12:41 | P.PN ---
Subjective Progress Note Date: 08/06/23 Principal diagnosis: Reason for follow-up is sepsis, ileus and possible aspiration pneumonia Patient is a 80-year-old male with a past medical history significant for atrial fibrillation hypertension hyperlipidemia NV did have history of Hodgkin lymphoma and prostate cancer splenectomy as a part of staging for the Hodgkin lymphoma back in the 70s presenting to the ER for evaluation of abdominal pain and also have an episode of vomiting and apparently the patient did have diarrhea prior to coming to the hospital patient did have a CT abdominal pelvis concerning for left lower lobe airspace disease and there was also concerning for ileus with initial concern for sepsis secondary to abdominal source. On today's evaluation that is 08/06/2023,the patient remains to be afebrile, patient is on room air not requiring supplemental oxygen and denies any shortness of breath no chest pain did have occasional dry cough.Patient denies having any nausea or vomiting abdominal pain has decreased intensity still did not have any bowel movement patient does have suppository placed. Patient white count slightly up to 13.24 today, creatinine 0.8 cultures has been negative Objective - Vital Signs Vital signs: Vital Signs Temp 97.5 F L 08/06/23 07:25 Pulse 70 08/06/23 07:25 Resp 19 08/06/23 07:25 BP 155/70 08/06/23 07:25 Pulse Ox 96 08/06/23 07:25 FiO2 Intake & Output 08/05/23 08/06/23 08/06/23 18:59 06:59 18:59 Output Total 1000 150 Balance -1000 -150 Output: Urine 1000 150 Other: Voiding Method Urinal Urinal - Exam GENERAL DESCRIPTION: An elderly male lying in bed in no distress RESPIRATORY SYSTEM: Unlabored breathing , decreased breath sounds at bases HEART: S1 S2 regular rate and rhythm , ABDOMEN: Soft , no tenderness EXTREMITIES: No edema feet - Labs CBC & Chem 7: 08/06/23 07:20 08/06/23 07:20 Labs: Abnormal Lab Results - Last 24 Hours (Table) 08/06/23 08/06/23 Range/Units 07:20 07:20 WBC 13.24 H (4.50-10.00) X 10*3/uL Hgb 12.6 L (13.0-17.0) g/dL Hct 38.8 L (39.6-50.0) % Plt Count 486 H (140-440) X 10*3/uL Sodium 134 L (135-145) mmol/L BUN 8.7 L (9.0-27.0) mg/dL BUN/Creatinine Ratio 10.88 L (12.00-20.00) Ratio AST 44 H (14-35) U/L Alkaline Phosphatase 135 H (41-126) U/L Total Protein 5.6 L (6.2-8.2) g/dL Albumin 2.9 L (3.8-4.9) g/dL Albumin/Globulin Ratio 1.07 L (1.60-3.17) Ratio Assessment and Plan (1) Leukocytosis Current Visit: Yes Status: Acute Code(s): D72.829 - ELEVATED WHITE BLOOD CELL COUNT, UNSPECIFIED SNOMED Code(s): 950254154 (2) Pneumonia Current Visit: Yes Status: Acute Code(s): J18.9 - PNEUMONIA, UNSPECIFIED ORGANISM SNOMED Code(s): 010921540 Plan: 1patient presented hospital with sepsis/septic shock in this patient who did have a fever tachycardia hypotension requiring pressor support patient predominately have abdominal symptoms of pain and did have diarrhea with a recent diagnosis of colitis and initial concern for possible ischemic versus infectious colitis 2-CT abdominal pelvis also shows evidence of left lower lobe pneumonia and patient did have vomiting before coming to the hospital with question of possible aspiration pneumonia however the patient did not have significant respiratory symptoms 3-patient remains to be afebrile, white count slightly up today and will monitor closely, patient will continue with the Zosyn waiting for bowel activity and continue with supportive care Dictation was produced using [employer] dictation software. please excuse any grammatical, word or spelling errors. Time with Patient: Less than 30
--- NOTE | 2023-08-06 13:13 | P.PN ---
Subjective Progress Note Date: 08/06/23 Small amount of ascitic fluid in the abdomen and pelvis. There was circumferential wall thickening of the colonic splenic flexure and this was attributed to either inflammatory or infectious along with a right-sided small pleural effusion. There was some atrophic changes of the pancreatic head with increase in the size of the pancreatic duct within the body and the tail of the pancreas. Back then, the labs were all adequate. The patient was seen in the emergency department and the patient was discharged home on Augmentin 875 mg twice daily and he was given a total of 10-day course. The patient presented back again to the emergency department on 07/28/2023 he was given Bentyl and Pepcid. Note that during his second emergency department visit, the patient was having also some diarrhea and he had diminished oral intake. Subsequently, he came into the emergency department on 08/01/2023 for ongoing abdominal pain and he was dehydrated as the patient was having ongoing diarrhea along with abdominal pain. He also had number of episodes of emesis along with nausea. No reported GI bleeding. No hematemesis. No bright red blood per rectum. During this current emergency department visit, the patient was found to have a hemoglobin of 14.4 with a white cell count of 5.8 and a platelet count of 423. His sodium level was down to 127 with a BUN of 19 and a creatinine of 1.01. UA was negati ve. The viral screen was negative. LFTs were normal with an alkaline phosphatase of 138, AST of 75 with an ALT of 27 and a bilirubin of 1.1. Amylase and lipase were also not elevated. The patient was given another CAT scan of the abdomen and pelvis and the patient was found to have some left lower lobe airspace opacity and dilatation of the loops of the small bowel in the large amount of stool suggestive of ileus. The patient also has cardiomegaly and small right-sided pleural effusion. In the emergency department, the patient was hypotensive and was given a total of 3 L of IV fluids and subsequently due to his underlying hypotension he was started on pressors with norepinephrine. He was noted to have a fever with a temperature one 1.2. He was started on Zosyn and vancomycin and following that he was transferred to the intensive care unit. He is known to have cardiomyopathy with an ejection fraction of 35 to 40% and his last echocardiogram was done in 2019. He is also known to have coronary artery disease with previous coronary artery bypass surgery, chronic A-fib, hypothyroidism and hyperlipidemia. He is also known to have previous history of prostate cancer and history of Hodgkin's lymphoma and the patient has undergone splenectomy followed by chemotherapy and radiation therapy between the years of 1976 and 1977. His prostate cancer was in June 2020. He has also undergone previous orthopedic surgeries including a total left hip arthroplasty. On today's evaluation of 08/02/2023, the patient is being seen in follow-up in the intensive care unit. The patient is doing well. No specific complaints. Abdomen is less tender compared to yesterday and the firmness is also improved. The patient has bowel sounds. No bowel movement activity yet. Suspect ischemic colitis and ileus. The procalcitonin level was elevated at 4.2. The patient had blood culture sent that are negative and the patient remains on IV Zosyn. IV fluids are running at 830 cc an hour of normal saline and the patient remains on norepinephrine 0.06 mcg/kg/min. The white cell count is at 12.9 with a hemoglobin of 11.4 and a platelet count of 365. BUN is at 22 with a creatinine of 1.02. Sodium level is at 131. The patient is currently on room air oxygen. No sinus tachycardia. He remains in a sinus rhythm. On 08/03/2023, the patient still having some abdominal pain but missed she had no nausea. No emesis.He was taking some clear liquid diet yesterday. However, this morning, he has no appetite. Abdominal x-ray showed gaseous dilatation of the bowel with a nonspecific bowel gas pattern consistent with an ileus. The patient remains on IV fluids. The patient remains on IV Zosyn. Procalcitonin level was elevated at time of admission. Nevertheless, the cultures came back negative. The blood culture preliminary is showing no growth. The white cell count is at 13.2 with a hemoglobin of 11.1 and a platelet count of 412. Sodium is 131 with a potassium level of 3.4, [place] is 18 with a creatinine of 0.5. The patient remains on IV Zosyn. Patient is on Lovenox for DVT prophylaxis 40 mg subcu on a daily basis. IV fluids are running at a rate of 50 cc an hour. On 08/04/2023, the patient is essentially unchanged compared to yesterday. Still having abdominal tenderness. No bowel movements yet. Bowel sounds are still hypoactive. Remains on IV Zosyn. Hemodynamically stable. Procalcitonin level is on the decline. He remains n.p.o. He was given some clear liquid diet. His appetite is extremely poor and he does not want to take anything orally. Patient remains on Lovenox for DVT prophylaxis. The white cell count is at 10.4, hemoglobin 12.3 And the platelet count is at 387. Sodium is at 132 with a potassium level of 3.7 and a chloride is 106 with a bicarb of 19 and a BN of 13 and a creatinine of 0.67. The patient is currently on room air oxygen. No labored breathing at this point in time. IV fluids are running at a rate of 50 cc an hour of normal saline. On today's evaluation of 08/05/2023, the patient is being seen for a follow-up. Abdomen is slightly tender. Bowel sounds are hypoactive. No bowel movement activity. Based on that, I obtained an abdominal x-ray that showed no significant interval change and the patient has multiple surgical clips and sutures scattered in the abdomen and bowel gas pattern that is essentially nonspecific consistent with with ileus. The chest x-ray still showing interval worsening and finding consistent with CHF and bibasilar pulmonary infiltrates and effusions. The patient however is denying having any significant respiratory distress and he is sitting up in a chair and is calm and comfortabl e. No fever. He tried to ambulate. He is on 2 L of oxygen by nasal cannula with a pulse ox of 97%. The white cell count at 9.8 with a hemoglobin 12.1 and a platelet count of 434 and the BUN is 9 with a creatinine of 0.59 and sodium levels at 132. The patient remains on IV Zosyn. The patient remains on Lovenox for DVT prophylaxis. The patient remains also on IV fluids. He was provide clear liquid diet and he was able to take some oatmeal this morning. On today's evaluation of 08/06/2023, the patient is being seen for a follow-up. Unfortunately, he has not been able to have a bowel movement yet. He was given some laxatives yesterday and the patient was given MiraLAX. He is passing f latus according to him. Abdomen is not much tender. He is clinically stable hemodynamically stable. No nausea. No vomiting. General surgery is on the case. The patient's blood work from today shows a white cell count of 13, hemoglobin 12.6 and a platelet count of 486, BUN is at 8 with a creatinine of 0.8 and sodium level of 134. The patient was seen by general surgery. Patient has a PICC line. Considering TPN if the patient is unable to meet his caloric requirements. For now, he is eating clear liquid diet and he was also given oatmeal. He is going to receive a laxative suppository today. He is being closely monitored and general surgery is on the case. Objective - Vital Signs Vital signs: Vital Signs Temp 97.5 F L 08/06/23 07:25 Pulse 70 08/06/23 07:25 Resp 19 08/06/23 07:25 BP 155/70 08/06/23 07:25 Pulse Ox 96 08/06/23 07:25 FiO2 Intake & Output 08/05/23 08/06/23 08/06/23 18:59 06:59 18:59 Output Total 1000 150 Balance -1000 -150 Output: Urine 1000 150 Other: Voiding Method Urinal Urinal - Exam General: Ill-appearing, no distress, appears at stated age, the patient is currently on room air with a pulse ox of 96 to 97% Head exam was generally normal. There was no scleral icterus or corneal arcus. Mucous membranes were moist. Derm: warm, dry Eyes: EOMI, no lid lag, anicteric sclera, pupils equal round reactive to light ENT: Nose and ears atraumatic, mucous membranes dry Cardiovascular: S1S2 reg, n soft systolic ejection murmur over the left apex. The patient also has a scar of previous thoracotomy Lungs: Rhonchi left base, no wheeze, no accessory muscle use, diminished breath sounds right lung base consistent with pleural effusion Abdominal: soft, tender to palpation diffusely, no guarding, scar of previous abdominal surgeries noted. The patient has no bowel sounds at this point in time. No rebound tenderness. No guarding. No organomegaly. Ext: no gross muscle atrophy, no contractures Neuro: CN II-XII grossly intact, No focal neuro deficits Psych: Alert, oriented, appropriate affect - Labs CBC & Chem 7: 08/06/23 07:20 08/06/23 07:20 Assessment and Plan Plan: Acute hypotension/shock, a combination of hypovolemic and septic in nature, recovered and the patient is currently normotensive and the procalcitonin level is on the decline Ileus with small bowel distention, versus partial small bowel obstruction, abdomen is still slightly distended. Bowel sounds are hypoactive and the patient's follow-up abdominal film from today showed nonspecific bowel gas pattern/ileus. No significant interval change on today's abdominal x-ray, bowel sounds remain hypoactive, the patient has not had any bowel movement activity yet. Right-sided pleural effusion along with some inflammatory changes in the left lung base. Consider possibility of a new onset pneumonia in the left lower lobe although clinically, the presentation is not consistent with pneumonia CHF with impaired ejection fraction of 35 to 40% with chronic systolic heart failure based on echocardiogram in 2019, the patient has an AICD in place, repeat echocardiogram showed an ejection fraction of around 30 to 35% along with global hypokinesis. Coronary artery disease previous bypass surgery and the patient's most recent cardiac catheterization is from May 2021 and this indicated patent GOMEZ to LAD and patent SVG to PDA and occluded SVG to OM1, OM 2 and diagonal. The [place] coronary arteries were also disease. Medical management was offered to this patient. Hyperlipidemia Hypothyroidism History of Hodgkin's lymphoma with a previous splenectomy followed by chemoradiation therapy back in History of prostate cancer, UA is negative at this point in time, the patient has been treated with therapy in the past Hyponatremia, likely hypovolemic in nature secondary to diarrhea, sodium level is improving Plan Clinically unchanged compared to yesterday Procalcitonin level is improving Hemodynamically stable Abdominal examination and the abdominal folds remains unchanged PICC line has been inserted Continue IV fluids at the rate of 50 cc an hour and the patient is currently off pressors General surgery consultation is appreciated Will continue to monitor the patient clinically. No plans for any surgical intervention at this point in time. Continue IV Zosyn No significant nausea at this point in time. If needed, will put an NG tube Echo was noted Lovenox for DVT prophylaxis Continue Synthroid 100 mcg p.o. daily Will continue to follow
--- NOTE | 2023-08-06 15:28 | P.PN ---
Subjective Progress Note Date: 08/06/23 (delayed charting seen at 1030) Patient is a 72-year-old male with a history of Hodgkin's lymphoma status post chemo radiation and splenectomy in the 1970s, atrial fibrillation, dyslipidemia, coronary artery disease with myocardial infarction and coronary artery bypass surgery, and prostate cancer who presented to the emergency department with complaints of abdominal pain. She had been seen in the ER on 07/[address] that showed possible colitis and at that time he was started on a course of amoxicillin, he then developed diarrhea and return to the ER on 07/28 where he was told to stop the amoxicillin. He represented today due to continued abdominal pain. Laboratory analysis in the ER included CBC, CMP, CRP, lipase, and urinalysis which were remarkable for sodium of 127 and C-reactive protein of 17. Influenza A/B/RSV/COVID-19 PCR testing was negative. Initially on presentation patient had stable vital signs but was noted to have a fever of 101.2. Slightly after presentation patient became hypotensive requiring 1.5 L of fluid resuscitation. He remained hypotensive and therefore was started on norepinephrine. Repeat CT abdomen pelvis obtained today demonstrates new left lower lobe airspace opacities, dilation of the small bowel loops with large amount of stool, cardiomegaly with right-sided pleural effusion and anasarca as well as heterogeneous enhancement of the liver consistent with congestive heart failure. Chest x-ray Confirmed left basilar infiltrate. He was started on vancomycin and Zosyn. Arrangements were made for admission to the ICU. He was seen by pulmonary, infectious disease, and general surgery. Antibiotics were optimized to Zosyn only. He underwent echocardiogram which showed an ejection fraction of 30 to 35%. Patient appeared slightly fluid overload on the morning of 08/05. He had been off of his diuretics since admission. He received 1 dose of IV Lasix and resumed on Aldactone with improvement. with severe global hypokinesis. Patient seen and examined at bedside. He states his abdominal pain is better now. He still has not had a bowel movement. He has no nausea. He has aggravated by a cough today. Vital signs reviewed General: Nontoxic, no distress, appears at stated age Cardiovascular: S1S2 reg, no murmur Lungs: Decreased be b/l, no rales, no accessory muscle use Abdominal: Soft, nontender to palpation, no guarding Ext: No gross muscle atrophy, no edema b/l lower extremities, no contractures Neuro: CN II-XI grossly intact, no focal neuro deficits Psych: Alert, oriented, appropriate affect Assessment/Plan: Ileus and probable ischemic colitis -Full liquid diet -Case discussed with Dr. Clay patient still has not had bowel movement since admission. Will administered Dulcolax x 1. Dicussed with nursing and patient did have a large bowel movement after. -Continue to hold Bentyl Pneumonia -Zosyn 3.375 g every 8 hours IV piggyback day #6 -Blood cultures negative today, MRSA nasal swab negative -Infectious disease note reviewed: Continue with Zosyn. -Pulmonary note reviewed: continue current care - Await PT and OT evaluation Compensated Systolic CHF, EF 30 to 35% - monitor fluid status closely - Spironolactone 50 mg at night, lisinopril 5 mg - Metoprolol 12.5 mg PO BID Thrombocytosis, reactive - Follow CBC Chronic: Atrial fibrillation Coronary artery disease with history of myocardial infarction status post coronary artery bypass grafting Hypothyroidism Dyslipidemia Hyponatremia, resolved Septic shock in an immunocompromised patient with hx of splenectomy, respoved Imaging: None new Data Review: Labs reviewed from today include CBC and CMP which are remarkable for white blood cell count 13.4, hemoglobin 12.6, platelets 486, sodium 134, AST 44 DVT prophylaxis: Lovenox Anticipated discharge date: 2 to [address]: Home This dictation was prepared using [employer] voice recognition software. Though every attempt is made to correct errors during dictation some may still exist. Objective - Vital Signs Vital signs: Vital Signs Temp 97.2 F L 08/06/23 14:00 Pulse 100 08/06/23 14:00 Resp 18 08/06/23 14:00 BP 108/73 08/06/23 14:00 Pulse Ox 97 08/06/23 14:00 FiO2 Intake & Output 08/05/23 08/06/23 08/06/23 18:59 06:59 18:59 Output Total 1000 150 Balance -1000 -150 Output: Urine 1000 150 Other: Voiding Method Urinal Urinal Urinal - Labs CBC & Chem 7: 08/06/23 07:20 08/06/23 07:20 Labs: Abnormal Lab Results - Last 24 Hours (Table) 08/06/23 08/06/23 Range/Units 07:20 07:20 WBC 13.24 H (4.50-10.00) X 10*3/uL Hgb 12.6 L (13.0-17.0) g/dL Hct 38.8 L (39.6-50.0) % Plt Count 486 H (140-440) X 10*3/uL Sodium 134 L (135-145) mmol/L BUN 8.7 L (9.0-27.0) mg/dL BUN/Creatinine Ratio 10.88 L (12.00-20.00) Ratio AST 44 H (14-35) U/L Alkaline Phosphatase 135 H (41-126) U/L Total Protein 5.6 L (6.2-8.2) g/dL Albumin 2.9 L (3.8-4.9) g/dL Albumin/Globulin Ratio 1.07 L (1.60-3.17) Ratio Microbiology - Last 24 Hours (Table) 08/01/23 05:45 Blood Culture - Final Blood
[2023-08-06] MEDS ORDERED: PIPERACILLIN-TAZOBACTAM 3.375 GM in SODIUM CHLORIDE 0.9% 100 ML IVPB SCH (16:00)
[2023-08-06 16:26] LABS: Glucose,Whole Blood 86 mg/dL (70-110)
[2023-08-06 20:29] LABS: Glucose,Whole Blood 116 mg/dL (70-110)
[2023-08-06] MEDS: PIPERACILLIN-TAZOBACTAM 3.375 GM in SODIUM CHLORIDE 0.9% 100 ML IVPB SCH (21:28)
[2023-08-06] MEDS: METOPROLOL TARTRATE 12.5 MG TAB PO SCH (21:29)
[2023-08-07 06:36] LABS: Glucose,Whole Blood 91 mg/dL (70-110)
[2023-08-07 08:35] LABS: HCT 35.3 % (39.6-50.0); HGB 11.5 g/dL (13.0-17.0); MCH 28.6 pg (27.0-32.0); MCHC 32.6 g/dL (32.0-37.0); MCV 87.8 FL (80.0-97.0); NRBC Per 100 WBC 0 X 10*3/uL (0.00-0.01); Platelet Count 436 X 10*3/uL (140-440); RBC 4.02 X 10*6/uL (4.40-5.60); RDW 14.3 % (11.5-14.5); WBC 11.68 X 10*3/uL (4.50-10.00)
[2023-08-07 08:51] LABS: BUN/Creat Ratio 14.43 Ratio (12.00-20.00); Blood Urea Nitrogen 10.1 mg/dL (9.0-27.0); Calcium 8.6 mg/dL (8.7-10.3); Carbon Dioxide 22.3 mmol/L (21.6-31.8); Chloride 98 mmol/L (96-109); Glucose 90 mg/dL (70-110); Sodium 133 mmol/L (135-145)
[2023-08-07] MEDS: SENNOSIDES 8.6 MG TAB PO SCH (10:26)
--- NOTE | 2023-08-07 11:26 | P.PN ---
Subjective Progress Note Date: 08/07/23 Principal diagnosis: Reason for follow-up is sepsis, ileus and possible aspiration pneumonia Patient is a 80-year-old male with a past medical history significant for atrial fibrillation hypertension hyperlipidemia RI did have history of Hodgkin lymphoma and prostate cancer splenectomy as a part of staging for the Hodgkin lymphoma back in the 70s presenting to the ER for evaluation of abdominal pain and also have an episode of vomiting and apparently the patient did have diarrhea prior to coming to the hospital patient did have a CT abdominal pelvis concerning for left lower lobe airspace disease and there was also concerning for ileus with initial concern for sepsis secondary to abdominal source. On today's evaluation that is 08/07/2023, the patient continues to be afebrile, the patient is on room air and breathing comfortably, the Pt denies having any chest pain he did have occasional coughing spells but not bring up any sputum, the patient did have mild abdominal pain no nausea no vomiting mention did have a 2 small bowel movements after he did have suppository yesterday. The patient white count is down to 11.68, creatinine 0.7 culture has been neg ative so far Objective - Vital Signs Vital signs: Vital Signs Temp 97.9 F 08/07/23 07:02 Pulse 90 08/07/23 07:02 Resp 17 08/07/23 07:02 BP 110/66 08/07/23 07:02 Pulse Ox 94 L 08/07/23 07:02 FiO2 Intake & Output 08/06/23 08/07/23 08/07/23 18:59 06:59 18:59 Output Total 1200 500 250 Balance -1200 -500 -250 Output: Urine 1200 500 250 Other: Voiding Method Urinal Urinal # Bowel Movements 1 - Exam GENERAL DESCRIPTION: An elderly male lying in bed in no distress RESPIRATORY SYSTEM: Unlabored breathing , decreased breath sounds at bases HEART: S1 S2 regular rate and rhythm , ABDOMEN: Soft , no tenderness EXTREMITIES: No edema feet - Labs CBC & Chem 7: 08/07/23 05:21 08/07/23 05:21 Labs: Abnormal Lab Results - Last 24 Hours (Table) 08/06/23 08/07/23 08/07/23 Range/Units 20:28 05:21 05:21 WBC 11.68 H (4.50-10.00) X 10*3/uL RBC 4.02 L (4.40-5.60) X 10*6/uL Hgb 11.5 L (13.0-17.0) g/dL Hct 35.3 L (39.6-50.0) % Sodium 133 L (135-145) mmol/L Anion Gap 12.70 H (4.00-12.00) mmol/L POC Glucose (mg/dL) 116 H (70-110) mg/dL Calcium 8.6 L (8.7-10.3) mg/dL Microbiology - Last 24 Hours (Table) 08/01/23 05:45 Blood Culture - Final Blood Assessment and Plan (1) Leukocytosis Current Visit: Yes Status: Acute Code(s): D72.829 - ELEVATED WHITE BLOOD CELL COUNT, UNSPECIFIED SNOMED Code(s): 928037816 (2) Pneumonia Current Visit: Yes Status: Acute Code(s): J18.9 - PNEUMONIA, UNSPECIFIED ORGANISM SNOMED Code(s): 536147530 Plan: 1patient presented hospital with sepsis/septic shock in this patient who did have a fever tachycardia hypotension requiring pressor support patient predominately have abdominal symptoms of pain and did have diarrhea with a recent diagnosis of colitis and initial concern for possible ischemic versus infectious colitis 2-CT abdominal pelvis also shows evidence of left lower lobe pneumonia and patient did have vomiting before coming to the hospital with question of possible aspiration pneumonia however the patient did not have significant r espiratory symptoms 3-patient remains to be afebrile, white count is trending down and culture has been negative for resistant pathogen patient will continue with the Zosyn while inpatient and plan to finish therapy with a short course of oral Augmentin on discharge Dictation was produced using [employer] dictation software. please excuse any grammatical, word or spelling errors. Time with Patient: Less than 30
[2023-08-07 12:03] LABS: Glucose,Whole Blood 98 mg/dL (70-110)
--- NOTE | 2023-08-07 14:53 | P.PN ---
Subjective Progress Note Date: 08/07/23 The patient is seen today August 07, 2023 and follow-up on the regular medical floor. He is currently sitting up in the bedside. Awake and alert in no acute distress. He is maintaining good O2 saturations in the 90s on room air. He is a febrile. Hemodynamically stable. He has a PICC line in place and is receiving TPN for nutritional support. Blood cultures are no growth. Urine culture revealed no growth. White count 11.6. Hemoglobin 11.5. Sodium 133. Potassium 4.0. Bicarb 22. BUN 10. Creatinine 0.7. Glucose 90. He remains on Lovenox for DVT prophylaxis. Continued on antibiotics in the form of Zosyn. Objective - Vital Signs Vital signs: Vital Signs Temp 97.9 F 08/07/23 13:23 Pulse 95 08/07/23 13:23 Resp 19 08/07/23 13:23 BP 102/65 08/07/23 13:23 Pulse Ox 100 08/07/23 13:23 FiO2 Intake & Output 08/06/23 08/07/23 08/07/23 18:59 06:59 18:59 Output Total 1200 500 250 Balance -1200 -500 -250 Output: Urine 1200 500 250 Other: Voiding Method Urinal Urinal # Bowel Movements 1 - Exam General: Ill-appearing, 72-year-old male patient, no distress, appears at stated age, the patient is currently on room air Head exam was generally normal. There was no scleral icterus or corneal arcus. Mucous membranes were moist. Derm: warm, dry Eyes: EOMI, no lid lag, anicteric sclera, pupils equal round reactive to light ENT: Nose and ears atraumatic, mucous membranes dry Cardiovascular: S1S2 reg, n soft systolic ejection murmur over the left apex. The patient also has a scar of previous thoracotomy Lungs: Rhonchi left base, no wheeze, no accessory muscle use, diminished breath sounds right lung base consistent with pleural effusion Abdominal: Ssoft, tender to palpation diffusely, no guarding, scar of previous abdominal surgeries noted. No rebound tenderness. Ext: no gross muscle atrophy, no contractures Neuro: CN II-XII grossly intact, No focal neuro deficits Psych: Alert, oriented, appropriate affect - Labs CBC & Chem 7: 08/07/23 05:21 08/07/23 05:21 Labs: Abnormal Lab Results - Last 24 Hours (Table) 08/06/23 08/07/23 08/07/23 Range/Units 20:28 05:21 05:21 WBC 11.68 H (4.50-10.00) X 10*3/uL RBC 4.02 L (4.40-5.60) X 10*6/uL Hgb 11.5 L (13.0-17.0) g/dL Hct 35.3 L (39.6-50.0) % Sodium 133 L (135-145) mmol/L Anion Gap 12.70 H (4.00-12.00) mmol/L POC Glucose (mg/dL) 116 H (70-110) mg/dL Calcium 8.6 L (8.7-10.3) mg/dL Microbiology - Last 24 Hours (Table) 08/01/23 05:45 Blood Culture - Final Blood Assessment and Plan Assessment: Acute hypotension/shock, a combination of hypovolemic and septic in nature, recovered and the patient is currently normotensive and the procalcitonin level is on the decline Ileus with small bowel distention, versus partial small bowel obstruction, abdomen is still slightly distended. Bowel sounds are hypoactive and the follow-up abdominal film showed nonspecific bowel gas pattern/ileus. No significant interval change, bowel sounds remain hypoactive, the patient has not had any bowel movement activity yet. Right-sided pleural effusion along with some inflammatory changes in the left lung base. Consider possibility of a new onset pneumonia in the left lower lobe although clinically, the presentation is not consistent with pneumonia CHF with impaired ejection fraction of 35 to 40% with chronic systolic heart failure based on echocardiogram in 2019, the patient has an AICD in place, repeat echocardiogram showed an ejection fraction of around 30 to 35% along with global hypokinesis. Coronary artery disease previous bypass surgery and the patient's most recent cardiac catheterization is from May 2021 and this indicated patent GOMEZ to LAD and patent SVG to PDA and occluded SVG to OM1, OM 2 and diagonal. The [place] coronary arteries were also disease. Medical management was offered to this patient. Hyperlipidemia Hypothyroidism History of Hodgkin's lymphoma with a previous splenectomy followed by chemoradiation therapy back in History of prostate cancer, UA is negative at this point in time, the patient has been treated with therapy in the past Hyponatremia, likely hypovolemic in nature secondary to diarrhea, sodium level is improving Plan: The patient was seen and evaluated Labs and medications reviewed Currently stable and on room air Receiving TPN for nutritional support Continued on Zosyn Plan is for home with home care at discharge I have personally seen and examined the patient, performed the documentation and the assessment and plan as written. Number of minutes spent on the visit: 10.
--- NOTE | 2023-08-07 15:17 | P.PN ---
Subjective Progress Note Date: 08/07/23 CHIEF COMPLAINT: Abdominal pain HISTORY OF PRESENT ILLNESS: Patient currently in regular medical floor. He was working with physical therapy this morning. He did have a bowel movement with Dulcolax suppository. Denies any nausea or vomiting. Does report some abdominal discomfort across upper abdomen. He reports that his pain is remaining about the same but controlled. Afebrile. WBC 13 down to 11.68 hemoglobin 11.5 PHYSICAL EXAM: VITAL SIGNS: Reviewed. GENERAL: Well-developed in no acute distress. ABDOMEN: Soft. Mildly distended. Mild tenderness mid abdomen with palpation NEUROLOGIC: Alert and oriented. Cranial nerves II through XII grossly intact. ASSESSMENT: 1. Abdominal pain with abdominal distention. Recent diagnosis of colitis. Concerns for possible ischemic colitis. 2. Possible ileus 3. Right-sided pleural effusion, possible pneumonia 4. Hyponatremia 5. History of splenectomy PLAN: -Advance diet to low fiber per Dr. Clay -Continue to monitor -Encourage patient to increase activity level -Continue supportive care Physician [employer] note has been reviewed by physician. Signing provider agrees with the documented findings, assessment, and plan of care. Report Objective - Vital Signs Vital signs: Vital Signs Temp 97.9 F 08/07/23 07:02 Pulse 90 08/07/23 07:02 Resp 17 08/07/23 07:02 BP 110/66 08/07/23 07:02 Pulse Ox 94 L 08/07/23 07:02 FiO2 Intake & Output 08/06/23 08/07/23 08/07/23 18:59 06:59 18:59 Output Total 1200 500 250 Balance -1200 -500 -250 Output: Urine 1200 500 250 Other: Voiding Method Urinal Urinal # Bowel Movements 1 - Labs CBC & Chem 7: 08/07/23 05:21 08/07/23 05:21 Labs: Abnormal Lab Results - Last 24 Hours (Table) 08/06/23 08/07/23 08/07/23 Range/Units 20:28 05:21 05:21 WBC 11.68 H (4.50-10.00) X 10*3/uL RBC 4.02 L (4.40-5.60) X 10*6/uL Hgb 11.5 L (13.0-17.0) g/dL Hct 35.3 L (39.6-50.0) % Sodium 133 L (135-145) mmol/L Anion Gap 12.70 H (4.00-12.00) mmol/L POC Glucose (mg/dL) 116 H (70-110) mg/dL Calcium 8.6 L (8.7-10.3) mg/dL Microbiology - Last 24 Hours (Table) 08/01/23 05:45 Blood Culture - Final Blood
--- NOTE | 2023-08-07 16:41 | P.PN ---
Subjective Progress Note Date: 08/07/23 (delayed charting seen at 1010) Patient is a 72-year-old male with a history of Hodgkin's lymphoma status post chemo radiation and splenectomy in the 1970s, atrial fibrillation, dyslipidemia, coronary artery disease with myocardial infarction and coronary artery bypass surgery, and prostate cancer who presented to the emergency department with complaints of abdominal pain. She had been seen in the ER on 07/[address] that showed possible colitis and at that time he was started on a course of amoxicillin, he then developed diarrhea and return to the ER on 07/28 where he was told to stop the amoxicillin. He represented today due to continued abdominal pain. Laboratory analysis in the ER included CBC, CMP, CRP, lipase, and urinalysis which were remarkable for sodium of 127 and C-reactive protein of 17. Influenza A/B/RSV/COVID-19 PCR testing was negative. Initially on presentation patient had stable vital signs but was noted to have a fever of 101.2. Slightly after presentation patient became hypotensive requiring 1.5 L of fluid resuscitation. He remained hypotensive and therefore was started on norepinephrine. Repeat CT abdomen pelvis obtained today demonstrates new left lower lobe airspace opacities, dilation of the small bowel loops with large amount of stool, cardiomegaly with right-sided pleural effusion and anasarca as well as heterogeneous enhancement of the liver consistent with congestive heart failure. Chest x-ray Confirmed left basilar infiltrate. He was started on vancomycin and Zosyn. Arrangements were made for admission to the ICU. He was seen by pulmonary, infectious disease, and general surgery. Antibiotics were optimized to Zosyn only. He underwent echocardiogram which showed an ejection fraction of 30 to 35%. Patient appeared slightly fluid overload on the morning of 08/05. He had been off of his diuretics since admission. He received 1 dose of IV Lasix and resumed on Aldactone with improvement. with severe global hypokinesis. Patient seen and examined at bedside. He is feeling better today. He is still having intermittent coughing fits. He did have a large bowel movement yesterday. Vital signs reviewed General: Nontoxic, no distress, appears at stated age Cardiovascular: S1S2 reg, no murmur Lungs: Decreased be b/l, no rales, no accessory muscle use Abdominal: Soft, nontender to palpation, no guarding Ext: No gross muscle atrophy, no edema b/l lower extremities, no contractures Neuro: CN II-XI grossly intact, no focal neuro deficits Psych: Alert, oriented, appropriate affect Assessment/Plan: Ileus and probable ischemic colitis, improved -Surgery recommendations: Advance to low fiber diet continue to increase activity - add senna daily - low fiber diet Pneumonia -Zosyn 3.375 g every 8 hours IV piggyback day #7 -Blood cultures negative today, MRSA nasal swab negative -Discussed with infectious disease. Plan will be for discharge on Augmentin for an additional 7 days. -Pulmonary note reviewed: Home with home care at discharge. -PT and OT recs Compensated Systolic CHF, EF 30 to 35% - monitor fluid status closely - Spironolactone 50 mg at night, lisinopril 5 mg - Metoprolol 12.5 mg PO BID Thrombocytosis, reactive - Follow CBC Chronic: Atrial fibrillation Coronary artery disease with history of myocardial infarction status post coronary artery bypass grafting Hypothyroidism Dyslipidemia Hyponatremia, resolved Septic shock in an immunocompromised patient with hx of splenectomy, respoved Imaging: None new Data Review: Labs reviewed from today include CBC and basic metabolic profile which are remarkable for white blood cell count 11.68 hemoglobin 11.5 sodium 133. DVT prophylaxis: Lovenox Anticipated discharge date:in AM Anticipated discharge place: Home with home health This dictation was prepared using [employer] voice recognition software. Though every attempt is made to correct errors during dictation some may still exist. Objective - Vital Signs Vital signs: Vital Signs Temp 97.9 F 08/07/23 13:23 Pulse 95 08/07/23 13:23 Resp 19 08/07/23 13:23 BP 102/65 08/07/23 13:23 Pulse Ox 100 08/07/23 13:23 FiO2 Intake & Output 08/06/23 08/07/23 08/07/23 18:59 06:59 18:59 Output Total 1200 500 250 Balance -1200 -500 -250 Weight 74.1 kg Output: Urine 1200 500 250 Other: Voiding Method Urinal Urinal # Bowel Movements 1 - Labs CBC & Chem 7: 08/07/23 05:21 08/07/23 05:21 Labs: Abnormal Lab Results - Last 24 Hours (Table) 08/06/23 08/07/23 08/07/23 Range/Units 20:28 05:21 05:21 WBC 11.68 H (4.50-10.00) X 10*3/uL RBC 4.02 L (4.40-5.60) X 10*6/uL Hgb 11.5 L (13.0-17.0) g/dL Hct 35.3 L (39.6-50.0) % Sodium 133 L (135-145) mmol/L Anion Gap 12.70 H (4.00-12.00) mmol/L POC Glucose (mg/dL) 116 H (70-110) mg/dL Calcium 8.6 L (8.7-10.3) mg/dL Microbiology - Last 24 Hours (Table) 08/01/23 05:45 Blood Culture - Final Blood
[2023-08-07 17:06] LABS: Glucose,Whole Blood 103 mg/dL (70-110)
[2023-08-07 20:42] LABS: Glucose,Whole Blood 102 mg/dL (70-110)
[2023-08-08] MEDS: ONDANSETRON 4 MG/2 ML VIAL IVP PRN (03:26)
[2023-08-08 06:08] LABS: Glucose,Whole Blood 107 mg/dL (70-110)
[2023-08-08 06:25] LABS: HCT 36.3 % (39.0-53.0); HGB 11.9 gm/dL (13.0-17.5); MCH 29.4 pg (25.0-35.0); MCHC 32.6 g/dL (31.0-37.0); Platelet Count 416 k/uL (150-450); RBC 4.04 m/uL (4.30-5.90); WBC 11.7 k/uL (3.8-10.6)
[2023-08-08] MEDS: IOPAMIDOL CONTRAST (ORAL USE) VIAL PO PRN (10:18)
--- NOTE | 2023-08-08 12:05 | P.PN ---
Subjective Progress Note Date: 08/08/23 CHIEF COMPLAINT: Abdominal pain HISTORY OF PRESENT ILLNESS: Patient having increased abdominal pain. He had nausea and vomiting that started yesterday after eating regular food. Last bowel movement was Monday. Denies any flatus. Abdomen is more distended. Afebrile. Mildly tachycardic. WBC stable at 11.7 PHYSICAL EXAM: VITAL SIGNS: Reviewed. GENERAL: Well-developed in no acute distress. ABDOMEN: Distended. Tender with palpation. NEUROLOGIC: Alert and oriented. Cranial nerves II through XII grossly intact. ASSESSMENT: 1. Abdominal pain with abdominal distention. Recent diagnosis of colitis. Concerns for possible ischemic colitis. 2. Possible ileus 3. Right-sided pleural effusion, possible pneumonia 4. Hyponatremia 5. History of splenectomy PLAN: -Downgrade diet to n.p.o. -Discussed findings with Dr. Clay. CT scan abdomen and pelvis with oral and IV contrast ordered due to increased abdominal pain with vomiting and abdominal distention. Physician [employer] note has been reviewed by physician. Signing provider agrees with the documented findings, assessment, and plan of care. Report Objective - Vital Signs Vital signs: Vital Signs Temp 98.2 F 08/08/23 07:27 Pulse 105 H 08/08/23 07:27 Resp 18 08/08/23 07:27 BP 100/58 08/08/23 07:27 Pulse Ox 90 L 08/08/23 07:27 FiO2 Intake & Output 08/07/23 08/08/23 08/08/23 18:59 06:59 18:59 Output Total 650 500 Balance -650 -500 Weight 74.1 kg Output: Urine 650 500 Other: Voiding Method Urinal # Voids 1 - Labs CBC & Chem 7: 08/08/23 05:25 08/07/23 05:21 Labs: Abnormal Lab Results - Last 24 Hours (Table) 08/08/23 Range/Units 05:25 WBC 11.7 H (3.8-10.6) k/uL RBC 4.04 L (4.30-5.90) m/uL Hgb 11.9 L (13.0-17.5) gm/dL Hct 36.3 L (39.0-53.0) %
[2023-08-08 12:19] LABS: Glucose,Whole Blood 88 mg/dL (70-110)
--- NOTE | 2023-08-08 12:31 | P.PN ---
Subjective Progress Note Date: 08/08/23 Principal diagnosis: Reason for follow-up is sepsis, ileus and possible aspiration pneumonia Patient is a 80-year-old male with a past medical history significant for atrial fibrillation hypertension hyperlipidemia DE did have history of Hodgkin lymphoma and prostate cancer splenectomy as a part of staging for the Hodgkin lymphoma back in the 70s presenting to the ER for evaluation of abdominal pain and also have an episode of vomiting and apparently the patient did have diarrhea prior to coming to the hospital patient did have a CT abdominal pelvis concerning for left lower lobe airspace disease and there was also concerning for ileus with initial concern for sepsis secondary to abdominal source. On today's evaluation that is 08/08/2023, Patient is afebrile , patient is currently on room air and denies having any shortness of breath, the patient denies any chest pain patient did have cough but no worsening, the patient did have episode of vomiting this morning, has complaining of some abdominal discomfort and no bowel movement. Patient white count is 11.7 creatinine 0.7 Objective - Vital Signs Vital signs: Vital Signs Temp 98.2 F 08/08/23 07:27 Pulse 105 H 08/08/23 07:27 Resp 18 08/08/23 07:27 BP 100/58 08/08/23 07:27 Pulse Ox 90 L 08/08/23 07:27 FiO2 Intake & Output 08/07/23 08/08/23 08/08/23 18:59 06:59 18:59 Output Total 650 500 Balance -650 -500 Weight 74.1 kg Output: Urine 650 500 Other: Voiding Method Urinal # Voids 1 - Exam GENERAL DESCRIPTION: An elderly male lying in bed in no distress RESPIRATORY SYSTEM: Unlabored breathing , decreased breath sounds at bases HEART: S1 S2 regular rate and rhythm , ABDOMEN: Soft , slightly tense EXTREMITIES: No edema feet - Labs CBC & Chem 7: 08/08/23 05:25 08/07/23 05:21 Labs: Abnormal Lab Results - Last 24 Hours (Table) 08/08/23 Range/Units 05:25 WBC 11.7 H (3.8-10.6) k/uL RBC 4.04 L (4.30-5.90) m/uL Hgb 11.9 L (13.0-17.5) gm/dL Hct 36.3 L (39.0-53.0) % Assessment and Plan (1) Leukocytosis Current Visit: Yes Status: Acute Code(s): D72.829 - ELEVATED WHITE BLOOD CELL COUNT, UNSPECIFIED SNOMED Code(s): 106252325 (2) Pneumonia Current Visit: Yes Status: Acute Code(s): J18.9 - PNEUMONIA, UNSPECIFIED ORGANISM SNOMED Code(s): 956430163 Plan: 1patient presented hospital with sepsis/septic shock in this patient who did have a fever tachycardia hypotension requiring pressor support patient predominately have abdominal symptoms of pain and did have diarrhea with a recent diagnosis of colitis and initial concern for possible ischemic versus infectious colitis 2-CT abdominal pelvis also shows evidence of left lower lobe pneumonia and patient did have vomiting before coming to the hospital with question of possible aspiration pneumonia however the patient did not have significant respiratory symptoms 3-patient did have an episode of vomiting that is slightly concerning CT abdominal pelvis has been ordered however will wait for the results continue with the Zosyn and monitor clinical course closely Dictation was produced using [employer] dictation software. please excuse any grammatical, word or spelling errors. Time with Patient: Less than 30
--- NOTE | 2023-08-08 12:47 | CT ---
EXAMINATION TYPE: CT abdomen pelvis w con DATE OF EXAM: 08/08/2023 COMPARISON: 08/01/2023 INDICATION: nausea, vomiting DLP: 903.1 mGycm, Automated exposure control for dose reduction was used. CONTRAST: 100 ml mL of Isovue 300. Study performed with Oral Contrast TECHNIQUE: Axial images were obtained from above the diaphragm to the pubic rami in the axial plane a t 5 mm thick sections. Reconstructed images are reviewed on the computer in the coronal plane. FINDINGS: Limited CT sections are obtained the lung bases. Moderate bilateral pleural effusions are present. S ome compressive atelectasis is adjacent.. Small to moderate size hiatal hernia is present. This cont ains oral contrast compatible with reflux into the esophagus. CT ABDOMEN: Some ascites is present adjacent to the liver. Liver: Hepatic cyst is likely present within the right lobe liver. Spleen: Not identified. Correlate with surgical history. Pancreas: Atrophic Adrenal glands: The adrenal glands are normal. Gallbladder: Normal Kidneys: No masses are evident. No hydronephrosis is present. No cysts are present. Delayed images were obtained through the kidneys, which remain unremarkable. Aorta: Vascular calcification is within the aorta. Inferior vena cava: Normal. CT PELVIS: Multiple dilated small bowel loops containing fluid are present. This extends into the pelvis. Findin gs could be compatible with small bowel obstruction. A zone of transition is not clearly identified. Distal ileum may be slightly decompressed. Air and fecal debris is within the colon. Study is without oral contrast limiting bowel evaluation Appendix: Not identified. No dilated tubular structure or inflammatory changes evident Urinary bladder: Somewhat limited due to beam hardening artifact from a left hip prosthesis. Genitourinary structures: Prostate appears unremarkable Osseous structures: No suspicious lytic or sclerotic lesions. Left hip prosthesis is present limiting lower pelvic evaluation due to beam hardening artifact. IMPRESSION: 1. Dilated small bowel loops extending towards the ileum. Small bowel obstruction should be consider ed. Ileus could be considered. Zone of transition is not clearly identified. 2. Small amount of ascites adjacent to the liver. 3. Moderate bilateral pleural effusions are present adjacent atelectasis. A Red level critical message alert has been initiated for Bouchra Kline DO via the [facility] Results System on 08/08/2023 12:45 PM. This message alert has been sent to Bouchra A DiCicc o, DO via the preferences provided by the clinician for the receipt of Radiology Critical Findings. M essage ID [id number].
[2023-08-08] MEDS ORDERED: BENZOCAINE SPRAY 1 CAN MUCOUS MEM PRN (12:48)
--- NOTE | 2023-08-08 14:31 | P.PN ---
Subjective Progress Note Date: 08/08/23 The patient is seen today August 07, 2023 and follow-up on the regular medical floor. He is currently sitting up in the bedside. Awake and alert in no acute distress. He is maintaining good O2 saturations in the 90s on room air. He is a febrile. Hemodynamically stable. He has a PICC line in place and is receiving TPN for nutritional support. Blood cultures are no growth. Urine culture revealed no growth. White count 11.6. Hemoglobin 11.5. Sodium 133. Potassium 4.0. Bicarb 22. BUN 10. Creatinine 0.7. Glucose 90. He remains on Lovenox for DVT prophylaxis. Continued on antibiotics in the form of Zosyn. The patient is seen today August 08, 2023 in follow-up on the regular medical floor. He is awake and alert in no acute distress. He is having some abdominal discomfort this morning. No worsening shortness of breath, cough or congestion. Maintaining good O2 saturations in the 90s on room air. He has normal staying at KVO. He has been afebrile. Hemodynamically stable. CT scan of the abdomen and pelvis revealed dilated small bowel loops extending towards the ileum. Small bowel obstruction should be considered. Ileus could be considered. Zone of transition not clearly identified. Small amount of ascites adjacent to the liver. Moderate bilateral pleural effusions with adjacent atelectasis. White count 11.7. Hemoglobin 11.9. Platelets 416. Objective - Vital Signs Vital signs: Vital Signs Temp 98.2 F 08/08/23 07:27 Pulse 105 H 08/08/23 07:27 Resp 18 08/08/23 07:27 BP 100/58 08/08/23 07:27 Pulse Ox 90 L 08/08/23 07:27 FiO2 Intake & Output 08/07/23 08/08/23 08/08/23 18:59 06:59 18:59 Output Total 650 500 Balance -650 -500 Weight 74.1 kg Output: Urine 650 500 Other: Voiding Method Urinal # Voids 1 - Exam General: Ill-appearing, 72-year-old male, presently having some abdominal discomfort with nausea, currently on room air Head exam was generally normal. There was no scleral icterus or corneal arcus. Mucous membranes were moist. Derm: warm, dry Eyes: EOMI, no lid lag, anicteric sclera, pupils equal round reactive to light ENT: Nose and ears atraumatic, mucous membranes dry Cardiovascular: S1S2 reg, n soft systolic ejection murmur over the left apex. The patient also has a scar of previous thoracotomy Lungs: Diminished in the bilateral bases, crackles. Abdominal: Soft, tender to palpation diffusely, no guarding, scar of previous abdominal surgeries noted. No rebound tenderness. Ext: no gross muscle atrophy, no contractures Neuro: CN II-XII grossly intact, No focal neuro deficits Psych: Alert, oriented, appropriate affect - Labs CBC & Chem 7: 08/08/23 05:25 08/07/23 05:21 Labs: Abnormal Lab Results - Last 24 Hours (Table) 08/08/23 Range/Units 05:25 WBC 11.7 H (3.8-10.6) k/uL RBC 4.04 L (4.30-5.90) m/uL Hgb 11.9 L (13.0-17.5) gm/dL Hct 36.3 L (39.0-53.0) % Assessment and Plan Assessment: Acute hypotension/shock, a combination of hypovolemic and septic in nature, recovered and the patient is currently normotensive and the procalcitonin level is on the decline Abdominal discomfort with nausea and vomiting. CT scan of the abdomen today reveals dilated small bowel loops extending towards the ileum. Small bowel obstruction should be considered. Ileus could be considered. Zone of transition not clearly identified. Nasogastric tube placed. Bilateral pleural effusions, ultrasound pending, stable and on room air CHF with impaired ejection fraction of 35 to 40% with chronic systolic heart failure based on echocardiogram in 2019, the patient has an AICD in place, repeat echocardiogram showed an ejection fraction of around 30 to 35% along with global hypokinesis. Coronary artery disease previous bypass surgery and the patient's most recent cardiac catheterization is from May 2021 and this indicated patent GOMEZ to LAD and patent SVG to PDA and occluded SVG to OM1, OM 2 and diagonal. The n ative coronary arteries were also disease. Medical management was offered to this patient. Hyperlipidemia Hypothyroidism History of Hodgkin's lymphoma with a previous splenectomy followed by chemo radiation therapy back in History of prostate cancer, UA is negative at this point in time, the patient has been treated with therapy in the past Hyponatremia, likely hypovolemic in nature secondary to diarrhea, sodium level is improving Plan: The patient was seen and evaluated CT scan of the abdomen pelvis, abs and medications reviewed Currently stable and on room air Will obtain a ultrasound of the chest If significant fluid we will plan for thoracentesis Nasogastric tube inserted Continued on Zosyn We will continue to follow I have personally seen and examined the patient, performed the documentation and the assessment and plan as written. Number of minutes spent on the visit: 10.
--- NOTE | 2023-08-08 15:53 | XR ---
EXAMINATION TYPE: XR abdomen 1V DATE OF EXAM: 08/08/2023 3:01 PM CLINICAL INDICATION:Male, 72 years old with history of NG tube placement; COMPARISON: 08/05/2023 TECHNIQUE: One radiographic view of the abdomen was obtained. FINDINGS: Nasogastric tube distal tip and side-port project over the gastric lumen. Postsurgical art ges with surgical clips in the upper abdomen. Partially visualized AICD. The bowel gas pattern is nonspecific without dilated loops of small or large bowel. There is no evide nce for organomegaly or pneumoperitoneum. The osseous structures are intact. No abnormal calcificat ions are present. Fecal material and gas are demonstrated throughout the colon and rectum. IMPRESSION: Nasogastric tube distal tip and side-port project over the gastric lumen.
--- NOTE | 2023-08-08 15:59 | P.PN ---
Subjective Progress Note Date: 08/08/23 (delayed charting seen at 0945) Patient is a 72-year-old male with a history of Hodgkin's lymphoma status post chemo radiation and splenectomy in the 1970s, atrial fibrillation, dyslipidemia, coronary artery disease with myocardial infarction and coronary artery bypass surgery, and prostate cancer who presented to the emergency department with complaints of abdominal pain. She had been seen in the ER on 07/[address] that showed possible colitis and at that time he was started on a course of amoxicillin, he then developed diarrhea and return to the ER on 07/28 where he was told to stop the amoxicillin. He represented today due to continued abdominal pain. Laboratory analysis in the ER included CBC, CMP, CRP, lipase, and urinalysis which were remarkable for sodium of 127 and C-reactive protein of 17. Influenza A/B/RSV/COVID-19 PCR testing was negative. Initially on presentation patient had stable vital signs but was noted to have a fever of 101.2. Slightly after presentation patient became hypotensive requiring 1.5 L of fluid resuscitation. He remained hypotensive and therefore was started on norepinephrine. Repeat CT abdomen pelvis obtained today demonstrates new left lower lobe airspace opacities, dilation of the small bowel loops with large amount of stool, cardiomegaly with right-sided pleural effusion and anasarca as well as heterogeneous enhancement of the liver consistent with congestive heart failure. Chest x-ray Confirmed left basilar infiltrate. He was started on vancomycin and Zosyn. Arrangements were made for admission to the ICU. He was seen by pulmonary, infectious disease, and general surgery. Antibiotics were optimized to Zosyn only. He underwent echocardiogram which showed an ejection fraction of 30 to 35% with severe global hypokinesis. Patient appeared slightly fluid overload on the morning of 08/05. He had been off of his diuretics since admission. He received 1 dose of IV Lasix and resumed on Aldactone with improvement. Patient seen and examined at bedside. He is feeling terrible today he is vomiting dark brown liquid. He is having increased abdominal pain. Vital signs reviewed General: Nontoxic, no distress, appears at stated age Cardiovascular: S1S2 reg, no murmur Lungs: Decreased be b/l, no rales, no accessory muscle use Abdominal: Soft, + distended, +tender to palpation diffusely, no guarding Ext: No gross muscle atrophy, no edema b/l lower extremities, no contractures Neuro: CN II-XI grossly intact, no focal neuro deficits Psych: Alert, oriented, appropriate affect Assessment/Plan: Ileus and probable ischemic colitis, improved -Case discussed with general surgery nurse practitioner. Stat CT scan ordered and reviewed which shows dilated small bowel loops extending towards the ileum with small bowel obstruction versus ileus zone of transition not identified. Orders were placed for NG tube to LIS. - NPO Pneumonia -Zosyn 3.375 g every 8 hours IV piggyback day #8 -Critical care note reviewed: Obtain ultrasound of the chest. -Infectious disease recommendations appreciated: Continue with Zosyn monitor closely. Plan will be for discharge on Augmentin for an additional 7 days. -PT and OT recs Compensated Systolic CHF, EF 30 to 35% - monitor fluid status closely - Spironolactone 50 mg at night, lisinopril 5 mg - Metoprolol 12.5 mg PO BID Thrombocytosis, reactive - Follow CBC Chronic: Atrial fibrillation Coronary artery disease with history of myocardial infarction status post coronary artery bypass grafting Hypothyroidism Dyslipidemia Hyponatremia, resolved Septic shock in an immunocompromised patient with hx of splenectomy, respoved Imaging: CT abdomen and pelvis: Dilated small bowel loops extending for the ileum with small bowel obstruction versus ileus, moderate bilateral pleural effusions with adjacent atelectasis. Data Review: Labs reviewed from today include CBC which is remarkable for white blood cell count 11.7 and hemoglobin 11.9. DVT prophylaxis: Lovenox Anticipated discharge date:in AM Anticipated discharge place: Home with home health This dictation was prepared using [employer] voice recognition software. Though every attempt is made to correct errors during dictation some may still exist. Objective - Vital Signs Vital signs: Vital Signs Temp 97.9 F 08/08/23 13:17 Pulse 98 08/08/23 13:17 Resp 19 08/08/23 13:17 BP 105/68 08/08/23 13:17 Pulse Ox 95 08/08/23 13:17 FiO2 Intake & Output 08/07/23 08/08/23 08/08/23 18:59 06:59 18:59 Output Total 650 500 250 Balance -650 -500 -250 Weight 74.1 kg Output: Urine 650 500 250 Uretheral (Mays) 250 Other: Voiding Method Urinal # Voids 1 - Labs CBC & Chem 7: 08/08/23 05:25 08/07/23 05:21 Labs: Abnormal Lab Results - Last 24 Hours (Table) 08/08/23 Range/Units 05:25 WBC 11.7 H (3.8-10.6) k/uL RBC 4.04 L (4.30-5.90) m/uL Hgb 11.9 L (13.0-17.5) gm/dL Hct 36.3 L (39.0-53.0) %
[2023-08-08 17:36] LABS: Glucose,Whole Blood 90 mg/dL (70-110)
--- NOTE | 2023-08-08 20:11 | US ---
EXAMINATION TYPE: US chest DATE OF EXAM: 08/08/2023 COMPARISON: CT abdomen/pelvis today CLINICAL INDICATION: Male, 72 years old with history of Bilateral pleural effusions; Bilateral PE TECHNIQUE: Targeted ultrasound of the posterior lower bilateral hemithoraces EXAM MEASUREMENTS: Right Pleural Effusion pocket size: 11.1 cm Right skin surface to fluid distance: 1.8 cm Left Pleural Effusion pocket size: 10.3 cm Left skin surface to fluid distance: 1.4 cm Right side marked for possible thoracentesis outside the dept. Images taken LLD Left side marked for possible thoracentesis outside the dept. Images taken RLD Pulmonologists are able to review the images in the patient?s EMR. IMPRESSIONS: At least moderate bilateral pleural effusions with underlying atelectatic lung.
[2023-08-08 21:23] LABS: Glucose,Whole Blood 94 mg/dL (70-110)
[2023-08-09 06:13] LABS: Glucose,Whole Blood 90 mg/dL (70-110)
[2023-08-09] MEDS: DEXTROSE 5%-0.45% NACL 1,000 ML IV SCH (10:43)
[2023-08-09 11:12] LABS: HCT 35.8 % (39.6-50.0); HGB 11.9 g/dL (13.0-17.0); MCHC 33.2 g/dL (32.0-37.0); MCV 87.3 FL (80.0-97.0); Mean Platelet Volume 9.4 FL (9.5-12.2); NRBC Per 100 WBC 0 X 10*3/uL (0.00-0.01); Platelet Count 510 X 10*3/uL (140-440); RDW 14.4 % (11.5-14.5); WBC 12.73 X 10*3/uL (4.50-10.00)
--- NOTE | 2023-08-09 11:24 | P.PN ---
Subjective Progress Note Date: 08/09/23 Principal diagnosis: Reason for follow-up is sepsis, ileus and possible aspiration pneumonia Patient is a 80-year-old male with a past medical history significant for atrial fibrillation hypertension hyperlipidemia LA did have history of Hodgkin lymphoma and prostate cancer splenectomy as a part of staging for the Hodgkin lymphoma back in the 70s presenting to the ER for evaluation of abdominal pain and also have an episode of vomiting and apparently the patient did have diarrhea prior to coming to the hospital patient did have a CT abdominal pelvis concerning for left lower lobe airspace disease and there was also concerning for ileus with initial concern for sepsis secondary to abdominal source. On today's evaluation that is 08/09/2023,the patient denies any fever or any chills, patient is breathing comfortably on 2 L nasal cannula oxygen patient is slightly lethargic today and the patient has received an NG because of CT findings of ileus patient denies any chest pain however worsening abdominal pain and no bowel movement Patient white count slightly up to 12.73 today creatinine 0.7 as of 08/07/2021 Objective - Vital Signs Vital signs: Vital Signs Temp 98.4 F 08/09/23 07:46 Pulse 93 08/09/23 07:46 Resp 18 08/09/23 07:46 BP 107/65 08/09/23 07:46 Pulse Ox 91 L 08/09/23 07:46 FiO2 Intake & Output 08/08/23 08/09/23 08/09/23 18:59 06:59 18:59 Output Total 1150 300 Balance -1150 -300 Output: Gastric Drainage 900 Urine 250 300 Uretheral ([place]ays) 250 Other: Voiding Method Urinal # Voids 1 - Exam GENERAL DESCRIPTION: An elderly male lying in bed in no distress RESPIRATORY SYSTEM: Unlabored breathing , decreased breath sounds at bases HEART: S1 S2 regular rate and rhythm , ABDOMEN: Soft , slightly tense EXTREMITIES: No edema feet - Labs CBC & Chem 7: 08/09/23 06:07 08/07/23 05:21 Assessment and Plan (1) Leukocytosis Current Visit: Yes Status: Acute Code(s): D72.829 - ELEVATED WHITE BLOOD CELL COUNT, UNSPECIFIED SNOMED Code(s): 477353764 (2) Pneumonia Current Visit: Yes Status: Acute Code(s): J18.9 - PNEUMONIA, UNSPECIFIED ORGANISM SNOMED Code(s): 760525471 Plan: 1patient presented hospital with sepsis/septic shock in this patient who did have a fever tachycardia hypotension requiring pressor support patient predomi nately have abdominal symptoms of pain and did have diarrhea with a recent diagnosis of colitis and initial concern for possible ischemic versus infectious colitis 2-CT abdominal pelvis also shows evidence of left lower lobe pneumonia and patient did have vomiting before coming to the hospital with question of possible aspiration pneumonia however the patient did not have significant respiratory symptoms 3-patient did have significant change in his clinical condition on last 24 hours with development of vomiting and CT showing evidence of ileus also noticed a slight worsening of his white count patient is currently broadly covered with Zosyn to continue will watch his clinical course closely await further surgical recommendation Dictation was produced using [employer] dictation software. please excuse any grammatical, word or spelling errors. Time with Patient: Greater than 30
[2023-08-09 11:39] LABS: Glucose,Whole Blood 94 mg/dL (70-110)
[2023-08-09 12:37] LABS: ALT 29 U/L (10-49); AST 32 U/L (14-35); Albumin 2.9 g/dL (3.8-4.9); Albumin/Globulin Ratio 1.16 Ratio (1.60-3.17); Alkaline Phosphatase 121 U/L (41-126); Blood Urea Nitrogen 12.6 mg/dL (9.0-27.0); Calcium 9.1 mg/dL (8.7-10.3); Carbon Dioxide 23.8 mmol/L (21.6-31.8); Chloride 96 mmol/L (96-109); Globulin 2.5 g/dL (1.6-3.3); Glucose 77 mg/dL (70-110); Magnesium 1.9 mg/dL (1.5-2.4); Potassium 4.2 mmol/L (3.5-5.5); Sodium 136 mmol/L (135-145); Total Bilirubin 0.4 mg/dL (0.3-1.2); Total Protein 5.4 g/dL (6.2-8.2)
--- NOTE | 2023-08-09 12:53 | P.PN ---
Subjective Progress Note Date: 08/09/23 The patient is seen today August 07, 2023 and follow-up on the regular medical floor. He is currently sitting up in the bedside. Awake and alert in no acute distress. He is maintaining good O2 saturations in the 90s on room air. He is a febrile. Hemodynamically stable. He has a PICC line in place and is receiving TPN for nutritional support. Blood cultures are no growth. Urine culture revealed no growth. White count 11.6. Hemoglobin 11.5. Sodium 133. Potassium 4.0. Bicarb 22. BUN 10. Creatinine 0.7. Glucose 90. He remains on Lovenox for DVT prophylaxis. Continued on antibiotics in the form of Zosyn. The patient is seen today August 08, 2023 in follow-up on the regular medical floor. He is awake and alert in no acute distress. He is having some abdominal discomfort this morning. No worsening shortness of breath, cough or congestion. Maintaining good O2 saturations in the 90s on room air. He has normal staying at KVO. He has been afebrile. Hemodynamically stable. CT scan of the abdomen and pelvis revealed dilated small bowel loops extending towards the ileum. Small bowel obstruction should be considered. Ileus could be considered. Zone of transition not clearly identified. Small amount of ascites adjacent to the liver. Moderate bilateral pleural effusions with adjacent atelectasis. White count 11.7. Hemoglobin 11.9. Platelets 416. The patient is seen today August 09, 2023 in follow-up on the regular medical floor. He is a bit lethargic today. He is arousable. He is somewhat agitated. He told us to get out of the room. He was refusing to sit up for possible thoracentesis today. Ultrasound of the chest does reveal a 11 cm pocket on the right and a 10 m 10 cm pocket on the left. He is stable and maintaining O2 saturations in the 90s on room air. Blood cultures revealed no growth. Urine culture revealed no growth. White count 12.7. Hemoglobin 11.9. Platelets 510. Sodium 136. Potassium 4.2. Bicarb 24. BUN 13. Creatinine 1.0. Glucose 90. He is continued on D5 and a half normal saline at 50 MLS per hour. Lovenox for DVT prophylaxis. Remains on antibiotics in the form of Zosyn. Objective - Vital Signs Vital signs: Vital Signs Temp 98.4 F 08/09/23 07:46 Pulse 93 08/09/23 07:46 Resp 18 08/09/23 07:46 BP 107/65 08/09/23 07:46 Pulse Ox 91 L 08/09/23 07:46 FiO2 Intake & Output 08/08/23 08/09/23 08/09/23 18:59 06:59 18:59 Output Total 1150 300 Balance -1150 -300 Output: Gastric Drainage 900 Urine 250 300 Uretheral (Mays) 250 Other: Voiding Method Urinal # Voids 1 - Exam General: Ill-appearing, 72-year-old male, somewhat lethargic and agitated today, currently on room air Head exam was generally normal. There was no scleral icterus or corneal arcus. Mucous membranes were moist. Derm: warm, dry Eyes: EOMI, no lid lag, anicteric sclera, pupils equal round reactive to light ENT: Nose and ears atraumatic, mucous membranes dry Cardiovascular: S1S2 reg, n soft systolic ejection murmur over the left apex. The patient also has a scar of previous thoracotomy Lungs: Diminished in the bilateral bases, crackles. Abdominal: Soft, tender to palpation diffusely, no guarding, scar of previous abdominal surgeries noted. No rebound tenderness. Ext: no gross muscle atrophy, no contractures Neuro: CN II-XII grossly intact, No focal neuro deficits Psych: Alert, oriented, appropriate affect - Labs CBC & Chem 7: 08/09/23 06:07 08/09/23 06:07 Labs: Abnormal Lab Results - Last 24 Hours (Table) 08/09/23 08/09/23 Range/Units 06:07 06:07 WBC 12.73 H (4.50-10.00) X 10*3/uL RBC 4.10 L (4.40-5.60) X 10*6/uL Hgb 11.9 L (13.0-17.0) g/dL Hct 35.8 L (39.6-50.0) % Plt Count 510 H (140-440) X 10*3/uL MPV 9.4 L (9.5-12.2) FL Anion Gap 16.20 H (4.00-12.00) mmol/L Total Protein 5.4 L (6.2-8.2) g/dL Albumin 2.9 L (3.8-4.9) g/dL Albumin/Globulin Ratio 1.16 L (1.60-3.17) Ratio Assessment and Plan Assessment: Acute hypotension/shock, a combination of hypovolemic and septic in nature, recovered and the patient is currently normotensive and the procalcitonin level is on the decline Abdominal discomfort with nausea and vomiting. CT scan of the abdomen today reveals dilated small bowel loops extending towards the ileum. Small bowel obstruction should be considered. Ileus could be considered. Zone of transition not clearly identified. Nasogastric tube placed Bilateral pleural effusions, plan was for thoracentesis however the patient declines today, he is agitated and telling us to get out of his room, he remains stable and on room air CHF with impaired ejection fraction of 35 to 40% with chronic systolic heart failure based on echocardiogram in 2019, the patient has an AICD in place, repeat echocardiogram showed an ejection fraction of around 30 to 35% along with global hypokinesis. Coronary artery disease previous bypass surgery and the patient's most recent cardiac catheterization is from May 2021 and this indicated patent GOMEZ to LAD and patent SVG to PDA and occluded SVG to OM1, OM 2 and diagonal. The [place] coronary arteries were also disease. Medical management was offered to this patient. Hyperlipidemia Hypothyroidism History of Hodgkin's lymphoma with a previous splenectomy followed by chemoradiation therapy back in History of prostate cancer, UA is negative at this point in time, the patient has been treated with therapy in the past Hyponatremia, likely hypovolemic in nature secondary to diarrhea, sodium level is improving Plan: The patient was seen and evaluated Ultrasound of the chest, abdominal x-ray, labs and medications reviewed Plan was for thoracentesis today however the patient is agitated Yelling at us to get out of his room Could not safely perform a thoracentesis today Currently stable and on room air Add Lasix 20 mg IVP x 1 Nasogastric tube remains Continued on Zosyn We will reevaluate tomorrow I have personally seen and examined the patient, performed the documentation and the assessment and plan as written. Number of minutes spent on the visit: 10.
[2023-08-09] MEDS: FUROSEMIDE 10 MG/ML 2 ML VIAL IV ONE (13:21)
--- NOTE | 2023-08-09 14:38 | P.PN ---
Subjective Progress Note Date: 08/09/23 (delayed charting seen at 1015) Patient is a 72-year-old male with a history of Hodgkin's lymphoma status post chemo radiation and splenectomy in the 1970s, atrial fibrillation, dyslipidemia, coronary artery disease with myocardial infarction and coronary artery bypass surgery, and prostate cancer who presented to the emergency department with complaints of abdominal pain. She had been seen in the ER on 07/[address] that showed possible colitis and at that time he was started on a course of amoxicillin, he then developed diarrhea and return to the ER on 07/28 where he was told to stop the amoxicillin. He represented today due to continued abdominal pain. Laboratory analysis in the ER included CBC, CMP, CRP, lipase, and urinalysis which were remarkable for sodium of 127 and C-reactive protein of 17. Influenza A/B/RSV/COVID-19 PCR testing was negative. Initially on presentation patient had stable vital signs but was noted to have a fever of 101.2. Slightly after presentation patient became hypotensive requiring 1.5 L of fluid resuscitation. He remained hypotensive and therefore was started on norepinephrine. Repeat CT abdomen pelvis obtained today demonstrates new left lower lobe airspace opacities, dilation of the small bowel loops with large amount of stool, cardiomegaly with right-sided pleural effusion and anasarca as well as heterogeneous enhancement of the liver consistent with congestive heart failure. Chest x-ray Confirmed left basilar infiltrate. He was started on vancomycin and Zosyn. Arrangements were made for admission to the ICU. He was seen by pulmonary, infectious disease, and general surgery. Antibiotics were optimized to Zosyn only. He underwent echocardiogram which showed an ejection fraction of 30 to 35% with severe global hypokinesis. Patient appeared slightly fluid overload on the morning of 08/05. He had been off of his diuretics since admission. He received 1 dose of IV Lasix and resumed on Aldactone with improvement. His abdominal pain got worse on the morning of 08/08 and he started having vomiting. Repeat CT showed ileus versus small bowel obstruction and an NG tube was placed. Patient seen and examined at bedside. He does not like his NG tube. He is asking for it to be removed. He states he is unsure if he has abdominal pain because the NG tube is so uncomfortable. -Per nursing patient has had approximately 200 cc out of his NG tube in the last 3-1/2 hours. Vital signs reviewed General: Nontoxic, no distress, appears at stated age Cardiovascular: S1S2 reg, no murmur Lungs: Decreased be b/l, no rales, no accessory muscle use Abdominal: Soft, +tender to palpation diffusely, no guarding Ext: No gross muscle atrophy, no edema b/l lower extremities, no contractures Neuro: CN II-XI grossly intact, no focal neuro deficits Psych: Alert, oriented, appropriate affect Assessment/Plan: Ileus and probable ischemic colitis, improved - NG tube to LIS. - NPO Pneumonia Bilateral pleural effusion -Zosyn 3.375 g every 8 hours IV piggyback day #9 -Critical care note reviewed: Continue with Zosyn. Reevaluate tomorrow. Patient was not agreeable to thoracentesis today. -Infectious disease note reviewed: Continue to monitor clinically. -Plan will be for discharge on Augmentin for an additional 7 days. -PT and OT recs Compensated Systolic CHF, EF 30 to 35% - monitor fluid status closely - Patient refusing all oral medications including: Spironolactone 50 mg at night, lisinopril 5 mg, Metoprolol 12.5 mg PO BID Thrombocytosis, reactive - Follow CBC Chronic: Atrial fibrillation Coronary artery disease with history of myocardial infarction status post coronary artery bypass grafting Hypothyroidism Dyslipidemia Hyponatremia, resolved Septic shock in an immunocompromised patient with hx of splenectomy, respoved Imaging: None new Data Review: Labs reviewed from today include CBC and CMP which are remarkable for white blood cell count 12.73, hemoglobin 11.9, platelets 510. DVT prophylaxis: Lovenox Anticipated discharge date:in AM Anticipated discharge place: Home with home health This dictation was prepared using [employer] voice recognition software. Though every attempt is made to correct errors during dictation some may still exist. Objective - Vital Signs Vital signs: Vital Signs Temp 98.4 F 08/09/23 07:46 Pulse 93 08/09/23 07:46 Resp 18 08/09/23 07:46 BP 107/65 08/09/23 07:46 Pulse Ox 91 L 08/09/23 07:46 FiO2 Intake & Output 08/08/23 08/09/23 08/09/23 18:59 06:59 18:59 Output Total 1150 300 Balance -1150 -300 Output: Gastric Drainage 900 Urine 250 300 Uretheral (Mays) 250 Other: Voiding Method Urinal # Voids 1 - Labs CBC & Chem 7: 08/09/23 06:07 08/09/23 06:07 Labs: Abnormal Lab Results - Last 24 Hours (Table) 08/09/23 08/09/23 Range/Units 06:07 06:07 WBC 12.73 H (4.50-10.00) X 10*3/uL RBC 4.10 L (4.40-5.60) X 10*6/uL Hgb 11.9 L (13.0-17.0) g/dL Hct 35.8 L (39.6-50.0) % Plt Count 510 H (140-440) X 10*3/uL MPV 9.4 L (9.5-12.2) FL Anion Gap 16.20 H (4.00-12.00) mmol/L Total Protein 5.4 L (6.2-8.2) g/dL Albumin 2.9 L (3.8-4.9) g/dL Albumin/Globulin Ratio 1.16 L (1.60-3.17) Ratio
--- NOTE | 2023-08-09 15:33 | P.PN ---
Subjective Progress Note Date: 08/09/23 CHIEF COMPLAINT: Abdominal pain HISTORY OF PRESENT ILLNESS: Patient continues to have diffuse abdominal pain. He has NG tube in place. CT scan abdomen pelvis yesterday reported dilated small bowel loops extending towards the ileum. Small bowel obstruction should be considered. Ileus could be considered. Zone of transition not clearly identified. Moderate bilateral pleural effusions and present adjacent atelectasis. Patient has NG tube in place. Patient had 900 mL output through the NG tube during the night and 175 this morning. He has been mildly tachycardic PHYSICAL EXAM: VITAL SIGNS: Reviewed. GENERAL: no acute distress. ABDOMEN: Mildly distended. Softer than yesterday's exam. Diffuse tenderness. NEUROLOGIC: awake and alert ASSESSMENT: 1. Small bowel obstruction versus ileus 2. Possible ischemic colitis on admission 3. Bilateral pleural effusions evaluated by pulmonary service. Patient declined thoracentesis. They recommended diuretics 4. Hyponatremia 5. History of splenectomy PLAN: -Continue NG tube for decompression -Keep patient n.p.o. -Downgrade diet to n.p.o. -Continue gentle hydration -Continue to monitor Physician Library Science Professor note has been reviewed by physician. Signing provider agrees with the documented findings, assessment, and plan of care. Report Objective - Vital Signs Vital signs: Vital Signs Temp 98.4 F 08/09/23 07:46 Pulse 93 08/09/23 07:46 Resp 18 08/09/23 07:46 BP 107/65 08/09/23 07:46 Pulse Ox 91 L 08/09/23 07:46 FiO2 Intake & Output 08/08/23 08/09/23 08/09/23 18:59 06:59 18:59 Output Total 1150 300 Balance -1150 -300 Output: Gastric Drainage 900 Urine 250 300 Uretheral (Mays) 250 Other: Voiding Method Urinal # Voids 1 - Labs CBC & Chem 7: 08/09/23 06:07 08/09/23 06:07 Labs: Abnormal Lab Results - Last 24 Hours (Table) 08/09/23 08/09/23 Range/Units 06:07 06:07 WBC 12.73 H (4.50-10.00) X 10*3/uL RBC 4.10 L (4.40-5.60) X 10*6/uL Hgb 11.9 L (13.0-17.0) g/dL Hct 35.8 L (39.6-50.0) % Plt Count 510 H (140-440) X 10*3/uL MPV 9.4 L (9.5-12.2) FL Anion Gap 16.20 H (4.00-12.00) mmol/L Total Protein 5.4 L (6.2-8.2) g/dL Albumin 2.9 L (3.8-4.9) g/dL Albumin/Globulin Ratio 1.16 L (1.60-3.17) Ratio
[2023-08-09 17:25] LABS: Glucose,Whole Blood 80 mg/dL (70-110)
[2023-08-09 21:08] LABS: Glucose,Whole Blood 94 mg/dL (70-110)
[2023-08-10 06:03] LABS: Glucose,Whole Blood 100 mg/dL (70-110)
[2023-08-10 10:20] LABS: HCT 35.8 % (39.6-50.0); HGB 11.7 g/dL (13.0-17.0); MCH 28.7 pg (27.0-32.0); MCHC 32.7 g/dL (32.0-37.0); MCV 87.7 FL (80.0-97.0); Mean Platelet Volume 9.6 FL (9.5-12.2); NRBC Per 100 WBC 0 X 10*3/uL (0.00-0.01); Platelet Count 538 X 10*3/uL (140-440); RBC 4.08 X 10*6/uL (4.40-5.60); RDW 14.4 % (11.5-14.5); WBC 12.74 X 10*3/uL (4.50-10.00)
[2023-08-10 10:42] LABS: BUN/Creat Ratio 14.11 Ratio (12.00-20.00); Blood Urea Nitrogen 12.7 mg/dL (9.0-27.0); Calcium 8.8 mg/dL (8.7-10.3); Carbon Dioxide 29.4 mmol/L (21.6-31.8); Chloride 95 mmol/L (96-109); Glucose 87 mg/dL (70-110); Potassium 3.7 mmol/L (3.5-5.5); Sodium 137 mmol/L (135-145)
--- NOTE | 2023-08-10 11:21 | P.PN ---
Subjective Progress Note Date: 08/10/23 Principal diagnosis: Reason for follow-up is sepsis, ileus and possible aspiration pneumonia Patient is a 80-year-old male with a past medical history significant for atrial fibrillation hypertension hyperlipidemia [place] did have history of Hodgkin lymphoma and prostate cancer splenectomy as a part of staging for the Hodgkin lymphoma back in the 70s presenting to the ER for evaluation of abdominal pain and also have an episode of vomiting and apparently the patient did have diarrhea prior to coming to the hospital patient did have a CT abdominal pelvis concerning for left lower lobe airspace disease and there was also concerning for ileus with initial concern for sepsis secondary to abdominal source. On today's evaluation that is 08/10/2023,the patient remains to be afebrile, patient is on room air not requiring supplemental oxygen patient does have a thoracocentesis completed complaining of some shortness of breath and chest pain occasional cough some abdominal discomfort and did not have any bowel movement. Patient white count is 12.74 creatinine 0.9 pleural fluid analysis pending Objective - Vital Signs Vital signs: Vital Signs Temp 97.4 F L 08/10/23 06:58 Pulse 89 08/10/23 06:58 Resp 16 08/10/23 06:58 BP 125/73 08/10/23 06:58 Pulse Ox 95 08/10/23 06:58 FiO2 Intake & Output 08/09/23 08/10/23 08/10/23 18:59 06:59 18:59 Output Total 1225 350 Balance -1225 -350 Output: Urine 1225 350 Other: Voiding Method Urinal # Voids 1 - Exam GENERAL DESCRIPTION: An elderly male lying in bed in no distress RESPIRATORY SYSTEM: Unlabored breathing , decreased breath sounds at bases HEART: S1 S2 regular rate and rhythm , ABDOMEN: Soft , slightly tense EXTREMITIES: No edema feet - Labs CBC & Chem 7: 08/10/23 06:26 08/10/23 06:26 Labs: Abnormal Lab Results - Last 24 Hours (Table) 08/09/23 08/10/23 08/10/23 Range/Units 06:07 06:26 06:26 WBC 12.74 H (4.50-10.00) X 10*3/uL RBC 4.08 L (4.40-5.60) X 10*6/uL Hgb 11.7 L (13.0-17.0) g/dL Hct 35.8 L (39.6-50.0) % Plt Count 538 H (140-440) X 10*3/uL Chloride 95 L (96-109) mmol/L Anion Gap 16.20 H 12.60 H (4.00-12.00) mmol/L Total Protein 5.4 L (6.2-8.2) g/dL Albumin 2.9 L (3.8-4.9) g/dL Albumin/Globulin Ratio 1.16 L (1.60-3.17) Ratio Assessment and Plan (1) Leukocytosis Current Visit: Yes Status: Acute Code(s): D72.829 - ELEVATED WHITE BLOOD CELL COUNT, UNSPECIFIED SNOMED Code(s): 595927408 (2) Pneumonia Current Visit: Yes Status: Acute Code(s): J18.9 - PNEUMONIA, UNSPECIFIED ORGANISM SNOMED Code(s): 611846312 Plan: 1patient presented hospital with sepsis/septic shock in this patient who did have a fever tachycardia hypotension requiring pressor support patient predominately have abdominal symptoms of pain and did have diarrhea with a recent diagnosis of colitis and initial concern for possible ischemic versus infectious colitis 2-CT abdominal pelvis also shows evidence of left lower lobe pneumonia and patient did have vomiting before coming to the hospital with question of poss ible aspiration pneumonia, patient also have evidence of effusion status post thoracocentesis fluid cultures will be followed and antibiotic adjusted if needed 3-patient did have significant change in his clinical condition on last 24 hours with development of vomiting and repeat CT showing evidence of ileus also noticed a slight worsening of his white count patient is currently broadly covered with Zosyn to continue and will monitor clinical course closely Dictation was produced using [employer] dictation software. please excuse any grammatical, word or spelling errors. Time with Patient: Less than 30
--- NOTE | 2023-08-10 11:22 | XR ---
EXAMINATION TYPE: XR chest 1V portable DATE OF EXAM: 08/10/2023 10:31 AM CLINICAL INDICATION:Male, 72 years old with history of Post right thoracentesis; [facility] COMPARISON: Chest radiographs from 08/05/2023. TECHNIQUE: XR chest 1V portable Frontal view of the chest. FINDINGS: Lungs/Pleura: Decrease in right pleural effusion. There remains blunting of the costophrenic angles. No evidence of focal consolidation or pneumothorax. Pulmonary vascularity: Pulmonary vascular congestion. Heart/mediastinum: Cardiomediastinal silhouette is enlarged and stable. Musculoskeletal: No acute osseous pathology. Other findings: None Lines/Tubes: Nasogastric tube with its distal tip and side-port projecting under the diaphragm. Right-sided PICC line with distal tip at the cavoatrial junction. IMPRESSION: Persistent right pleural effusion without evidence for pneumothorax.
[2023-08-10 11:40] LABS: Glucose,Whole Blood 85 mg/dL (70-110)
[2023-08-10] MEDS: IOPAMIDOL CONTRAST (ORAL USE) VIAL PO PRN (12:29)
--- NOTE | 2023-08-10 13:49 | P.PN ---
Subjective Progress Note Date: 08/10/23 The patient is seen today August 07, 2023 and follow-up on the regular medical floor. He is currently sitting up in the bedside. Awake and alert in no acute distress. He is maintaining good O2 saturations in the 90s on room air. He is a febrile. Hemodynamically stable. He has a PICC line in place and is receiving TPN for nutritional support. Blood cultures are no growth. Urine culture revealed no growth. White count 11.6. Hemoglobin 11.5. Sodium 133. Potassium 4.0. Bicarb 22. BUN 10. Creatinine 0.7. Glucose 90. He remains on Lovenox for DVT prophylaxis. Continued on antibiotics in the form of Zosyn. The patient is seen today August 08, 2023 in follow-up on the regular medical floor. He is awake and alert in no acute distress. He is having some abdominal discomfort this morning. No worsening shortness of breath, cough or congestion. Maintaining good O2 saturations in the 90s on room air. He has normal staying at KVO. He has been afebrile. Hemodynamically stable. CT scan of the abdomen and pelvis revealed dilated small bowel loops extending towards the ileum. Small bowel obstruction should be considered. Ileus could be considered. Zone of transition not clearly identified. Small amount of ascites adjacent to the liver. Moderate bilateral pleural effusions with adjacent atelectasis. White count 11.7. Hemoglobin 11.9. Platelets 416. The patient is seen today August 09, 2023 in follow-up on the regular medical floor. He is a bit lethargic today. He is arousable. He is somewhat agitated. He told us to get out of the room. He was refusing to sit up for possible thoracentesis today. Ultrasound of the chest does reveal a 11 cm pocket on the right and a 10 m 10 cm pocket on the left. He is stable and maintaining O2 saturations in the 90s on room air. Blood cultures revealed no growth. Urine culture revealed no growth. White count 12.7. Hemoglobin 11.9. Platelets 510. Sodium 136. Potassium 4.2. Bicarb 24. BUN 13. Creatinine 1.0. Glucose 90. He is continued on D5 and a half normal saline at 50 MLS per hour. Lovenox for DVT prophylaxis. Remains on antibiotics in the form of Zosyn. The patient is seen today August 10, 2023 in follow-up on the regular medical floor. He is more awake and alert today. Maintaining O2 saturations in the 90s on room air. Nasogastric tube remains in place. White count 12.7. Hemoglobin 11.7. Platelets 538. Sodium 137. Potassium 3.7. Bicarb 29. BUN 13. Creatinine 0.9. Glucose 87. Continued on antibiotics in the form of Zosyn. Lovenox for DVT prophylaxis. The patient was agreeable to thoracentesis today. He had 1.2 L removed from his right pleural cavity. Cytology and fluid analysis pending. Objective - Vital Signs Vital signs: Vital Signs Temp 97.4 F L 08/10/23 06:58 Pulse 89 08/10/23 06:58 Resp 16 08/10/23 06:58 BP 125/73 08/10/23 06:58 Pulse Ox 95 08/10/23 06:58 FiO2 Intake & Output 08/09/23 08/10/23 08/10/23 18:59 06:59 18:59 Output Total 1225 350 Balance -1225 -350 Output: Urine 1225 350 Other: Voiding Method Urinal # Voids 1 - Exam General: Ill-appearing, thin 72-year-old male, awake and alert today, currently on room air Head exam was generally normal. There was no scleral icterus or corneal arcus. Mucous membranes were moist. Derm: warm, dry Eyes: EOMI, no lid lag, anicteric sclera, pupils equal round reactive to light ENT: Nose and ears atraumatic, mucous membranes dry. Nasogastric tube remains in place Cardiovascular: S1S2 reg, n soft systolic ejection murmur over the left apex. The patient also has a scar of previous thoracotomy Lungs: Diminished in the bilateral bases, crackles. Abdominal: Soft, tender to palpation diffusely, no guarding, scar of previous abdominal surgeries noted. No rebound tenderness. Ext: no gross muscle atrophy, no contractures Neuro: CN II-XII grossly intact, No focal neuro deficits Psych: Alert, oriented, appropriate affect - Labs CBC & Chem 7: 08/10/23 06:26 08/10/23 06:26 Labs: Abnormal Lab Results - Last 24 Hours (Table) 08/10/23 08/10/23 Range/Units 06:26 06:26 WBC 12.74 H (4.50-10.00) X 10*3/uL RBC 4.08 L (4.40-5.60) X 10*6/uL Hgb 11.7 L (13.0-17.0) g/dL Hct 35.8 L (39.6-50.0) % Plt Count 538 H (140-440) X 10*3/uL Chloride 95 L (96-109) mmol/L Anion Gap 12.60 H (4.00-12.00) mmol/L Assessment and Plan Assessment: Acute hypotension/shock, a combination of hypovolemic and septic in nature, recovered and the patient is currently normotensive and the procalcitonin level is on the decline Abdominal discomfort with nausea and vomiting. CT scan of the abdomen reveals dilated small bowel loops extending towards the ileum. Small bowel obstruction should be considered. Ileus could be considered. Zone of transition not clearly identified. Nasogastric tube placed Bilateral pleural effusions, he did undergo a right-sided thoracentesis today August 10, 2023 with 1.2 L of straw-colored fluid removed, cytology and fluid analysis pending, he remains stable and on room air CHF with impaired ejection fraction of 35 to 40% with chronic systolic heart failure based on echocardiogram in 2019, the patient has an AICD in place, repeat echocardiogram showed an ejection fraction of around 30 to 35% along with global hypokinesis. Coronary artery disease previous bypass surgery and the patient's most recent cardiac catheterization is from May 2021 and this indicated patent GOMEZ to LAD and patent SVG to PDA and occluded SVG to OM1, OM 2 and diagonal. The [place] coronary arteries were also disease. Medical management was offered to this patient. Hyperlipidemia Hypothyroidism History of Hodgkin's lymphoma with a previous splenectomy followed by chemoradiation therapy back in History of prostate cancer, UA is negative at this point in time, the patient has been treated with therapy in the past Hyponatremia, likely hypovolemic in nature secondary to diarrhea, sodium level is improving Plan: The patient was seen and evaluated Chest x-ray, labs and medications reviewed More alert and cooperative today Right-sided thoracentesis performed today 1.2 L of straw-colored fluid removed Cytology and fluid analysis pending Currently stable and on room air Nasogastric tube remains Continued on Zosyn We will continue to follow I have personally seen and examined the patient, performed the documentation and the assessment and plan as written. Number of minutes spent on the visit: 10.
--- NOTE | 2023-08-10 14:34 | CT ---
EXAMINATION: CT ABDOMEN AND PELVIS WITHOUT IV CONTRAST DATE OF EXAMINATION: 08/08/2023. COMPARISON: 08/08/2023. INDICATION: Follow-up on small bowel obstruction. PROCEDURE: Axial CT of the abdomen and pelvis was performed with sagittal and coronal reformatted i mages without contrast enhancement. The exam is limited because some types of pathology may not be ad equately demonstrated due to lack of contrast enhancement. CT dose lowering techniques were used, to include: automated exposure control, adjustment for patient size, and/or use of iterative reconstruct ion. FINDINGS: LOWER CHEST : There is a large left and small right pleural effusion. There is patchy airspace disea se within the right lung base which could be inflammatory or infectious. Component of atelectasis wou ld certainly be a consideration. ABDOMEN: Liver and Biliary system: Subcentimeter hypodensity in the right lobe of liver is too small to fully characterize and unchanged. The noncontrast appearance of the liver otherwise appears unremarkable. Adrenal glands: Normal. Kidneys and ureters: There are no renal stones or hydronephrosis. No ureteral stones are present.. Spleen: Normal. Pancreas: Normal. Gallbladder: Normal. Lymph nodes, Peritoneum and mesentery: There is no mesenteric or retroperitoneal lymphadenopathy. Th ere is a small amount of ascites around the liver. Gastrointestinal tract: There is no significant change in the appearance of the small bowel obstruct ion when compared to the previous examination. Contrast is seen within the small bowel and does appea r to have passed some into the colon. This may relate to a partial small bowel obstruction. The appen isael is not clearly seen with no secondary changes of appendicitis. Aorta/IVC: There is moderate vascular calcification throughout the abdominal aorta without evidence of aneurysmal dilation. NG tube tip is seen within the proximal stomach just distal to the gastroeso phageal junction.. IVC normal. Abdominal wall: Normal. PELVIS: Fluid: Small amount of pelvic ascites. Lymph Nodes: There is no pelvic or inguinal lymphadenopathy.. Urinary bladder: There is contrast seen within the bladder as well as several foci of air which can be seen in the setting of prior instrumentation. A definitive etiology is not seen based on this exam ination.. BONES: There is a left total hip arthroplasty. The bones otherwise appear unchanged.. ADDITIONAL SIGNIFICANT FINDINGS: None. IMPRESSION: 1. Similar appearance to the small bowel obstruction as above. 2. Ascites. 3. Large left and small right pleural effusion with right basilar airspace disease.
--- NOTE | 2023-08-10 15:32 | P.PN ---
Subjective Progress Note Date: 08/10/23 72-year-old male with a history of Hodgkin's lymphoma status post chemo radiation and splenectomy in the 1970s, atrial fibrillation, dyslipidemia, coronary artery disease with myocardial infarction and coronary artery bypass surgery, and prostate cancer who presented to the emergency department with complaints of abdominal pain. Laboratory analysis in the ER included CBC, CMP, CRP, lipase, and urinalysis which were remarkable for sodium of 127 and C-reactive protein of 17. Influenza A/B/RSV/COVID-19 PCR testing was negative. Initially on presentation patient had stable vital signs but was noted to have a fever of 101.2F. Slightly after presentation patient became hypotensive requiring 1.5 L of fluid resuscitation. He remained hypotensive and therefore was started on norepinephrine. Repeat CT abdomen pelvis obtained today demonstrates new left lower lobe airspace opacities, dilation of the small bowel loops with large amount of stool, cardiomegaly with right-sided pleural effusion and anasarca as well as heterogeneous enhancement of the liver consistent with congestive heart failure. He was started on vancomycin and Zosyn. Arrangements were made for admission to the ICU. He was seen by pulmonary, infectious disease, and general surgery. Antibiotics were optimized to Zosyn only. He underwent echocardiogram which showed an ejection fraction of 30 to 35% with severe global hypokinesis. His abdominal pain got worse on the morning of 08/08 and he started having vomiti ng. Repeat CT showed ileus versus small bowel obstruction and an NG tube was placed. 08/10 Patient was seen and examined. Feels slightly better than yesterday. Currently with NG tube to suction. CT AP done today shows continued SBO. CBC WBC 12.74 Hg 11.7 Hct 35.8 Plt 538. BMP Cl 95, AG 12.6. Vital signs reviewed General: Nontoxic, no distress, appears at stated age Cardiovascular: S1S2 reg, no murmur Lungs: Decreased be b/l, no rales, no accessory muscle use Abdominal: Soft, +tender to palpation diffusely, no guarding Ext: No gross muscle atrophy, no edema b/l lower extremities, no contractures Neuro: no focal neuro deficits Psych: Alert, oriented, appropriate affect Based on my assessment of this patient, this patient meets a high complexity level of care. Patient has an acute diagnosis of SBO complicated with PNA and bilateral pleural effusions that poses a threat to life or bodily function. Ileus and probable ischemic colitis: NPO. NG tube to suction. Surgery on board. Pneumonia: Zosyn 3.375 g every 8 hours IV piggyback (D10). ID and Pulmonary on board. Bilateral pleural effusion: Underwent right sided thoracentesis 1.2 L removed. Compensated Systolic CHF, EF 30 to 35%: Patient refusing all oral medications including: Spironolactone 50 mg at night, lisinopril 5 mg, Metoprolol 12.5 mg PO BID Thrombocytosis: Reactive. Chronic: Atrial fibrillation, Coronary artery disease with history of myocardial infarction status post coronary artery bypass grafting, Hypothyroidism, Dyslipidemia Resolved: HypoNa, Septic shock Hyponatremia, resolved CODE STATUS: FULL CODE DVT Prophylaxis: Lovenox GI Prophylaxis: Designated medical POA if patient is not able to make medical decisions for themselves: I have reviewed the following residential solar consultant notes: Pulmonary, ID note I have reviewed the results of the following tests: CBC, BMP. I have ordered the following tests: CBC and CMP I have discussed the care of this patient with the following independent historian: I have independently interpreted the following test below: I have discussed the management of this patient with the following physician: Objective - Vital Signs Vital signs: Vital Signs Temp 97.5 F L 08/10/23 13:33 Pulse 87 08/10/23 13:33 Resp 16 08/10/23 13:33 BP 148/92 08/10/23 13:33 Pulse Ox 96 08/10/23 13:33 FiO2 Intake & Output 08/09/23 08/10/23 08/10/23 18:59 06:59 18:59 Output Total 1225 350 200 Balance -1225 -350 -200 Weight 74.1 kg Output: Gastric Drainage 200 Urine 1225 350 Other: Voiding Method Urinal # Voids 1 - Labs CBC & Chem 7: 08/10/23 06:26 08/10/23 06:26 Labs: Abnormal Lab Results - Last 24 Hours (Table) 08/10/23 08/10/23 Range/Units 06:26 06:26 WBC 12.74 H (4.50-10.00) X 10*3/uL RBC 4.08 L (4.40-5.60) X 10*6/uL Hgb 11.7 L (13.0-17.0) g/dL Hct 35.8 L (39.6-50.0) % Plt Count 538 H (140-440) X 10*3/uL Chloride 95 L (96-109) mmol/L Anion Gap 12.60 H (4.00-12.00) mmol/L
--- NOTE | 2023-08-10 15:35 | P.PN ---
Subjective Progress Note Date: 08/10/23 CHIEF COMPLAINT: Abdominal pain HISTORY OF PRESENT ILLNESS: Patient continues to have abdominal pain. Denies any nausea. He is having flatus. No bowel movement. 100 mL bilious output through NG tube. Patient had repeat CT scan abdomen pelvis today reported similar appearance to small bowel obstruction. Ascites. Large left and small right pleural effusion with right basilar airspace disease. Patient is status post right-sided thoracentesis by pulmonary service 1.2 L removed. PHYSICAL EXAM: VITAL SIGNS: Reviewed. GENERAL: no acute distress. ABDOMEN: Mildly distended. Diffuse tenderness. NEUROLOGIC: awake and alert ASSESSMENT: 1. Small bowel obstruction versus ileus 2. Possible ischemic colitis on admission 3. Bilateral pleural effusions evaluated by pulmonary service. Status post right-sided thoracentesis 4. History of splenectomy PLAN: -Continue NG tube for decompression -Keep patient n.p.o. -Continue gentle hydration -Continue to monitor Physician Frozen Food Department Manager note has been reviewed by physician. Signing provider agrees with the documented findings, assessment, and plan of care. Report Objective - Vital Signs Vital signs: Vital Signs Temp 97.4 F L 08/10/23 06:58 Pulse 89 08/10/23 06:58 Resp 16 08/10/23 06:58 BP 125/73 08/10/23 06:58 Pulse Ox 95 08/10/23 06:58 FiO2 Intake & Output 08/09/23 08/10/23 08/10/23 18:59 06:59 18:59 Output Total 1225 350 Balance -1225 -350 Output: Urine 1225 350 Other: Voiding Method Urinal # Voids 1 - Labs CBC & Chem 7: 08/10/23 06:26 08/10/23 06:26 Labs: Abnormal Lab Results - Last 24 Hours (Table) 08/09/23 08/10/23 08/10/23 Range/Units 06:07 06:26 06:26 WBC 12.74 H (4.50-10.00) X 10*3/uL RBC 4.08 L (4.40-5.60) X 10*6/uL Hgb 11.7 L (13.0-17.0) g/dL Hct 35.8 L (39.6-50.0) % Plt Count 538 H (140-440) X 10*3/uL Chloride 95 L (96-109) mmol/L Anion Gap 16.20 H 12.60 H (4.00-12.00) mmol/L Total Protein 5.4 L (6.2-8.2) g/dL Albumin 2.9 L (3.8-4.9) g/dL Albumin/Globulin Ratio 1.16 L (1.60-3.17) Ratio
[2023-08-10 16:54] LABS: Glucose,Whole Blood 96 mg/dL (70-110)
--- NOTE | 2023-08-10 19:06 | OP ---
OPERATIVE REPORT DATE OF SERVICE : OPERATION: Placement of right-sided thoracentesis. PREOPERATIVE DIAGNOSIS: Right pleural effusion. POSTOPERATIVE DIAGNOSIS: Right pleural effusion. ANESTHESIA USED: 2 mL of 1% lidocaine. DESCRIPTION OF PROCEDURE: The patient was placed in a sitting upright position, the area below the right scapula was prepared in a sterile fashion and drapes were applied. The area of the fluid was earlier localized by ultrasound, and the marking was at the level of the 8th intercostal space and tip of the scapula. The area was locally anesthetized, then a 26- gauge needle was inserted into the pleural space, fluid was localized with a needle. A small tiny incision was made, and a standard thoracentesis catheter and needle used, advanced at the same site into the pleural space and as soon as the fluid was obtained, the catheter was advanced over the needle and the needle was pulled out of the pleural space. Freely flowing fluid was removed, roughly 1200 mL of straw-colored fluid was removed from the right pleural space. The fluid was sent for different diagnostic studies. Procedure was well tolerated and no complications. MMODL / IJN: [id number] /
[2023-08-10 22:03] LABS: Glucose,Whole Blood 91 mg/dL (70-110)
--- NOTE | 2023-08-10 23:56 | XR ---
EXAM: XR Chest, 1 View CLINICAL HISTORY: ITS.REASON XR Reason: NG tube placement TECHNIQUE: Frontal view of the chest. COMPARISON: No relevant prior studies available. FINDINGS: Lungs: Unremarkable. No consolidation. Pleural space: Right pleural effusion with right sided PICC line seen at this mid SVC. Probable left pleural effusion with left chest wall intracardiac cardiac device. No pneumothorax. Heart: Unremarkable. No cardiomegaly. Mediastinum: Unremarkable. Normal mediastinal contour. Bones/joints: Unremarkable. No acute fracture. Tubes, lines and devices: Esophageal catheter is present with its tip at the gastroesophageal junction. This should be advanced 7 cm. IMPRESSION: 1. Bilateral pleural effusions right greater than left 2. Improperly positioned esophageal catheter which should be advanced 7 centimeters
[2023-08-11 02:55] LABS: Glucose, BF Source Pleural fluid; Glucose, Body Fluid 89 mg/dL; LDH, Body Fluid Source Pleural fluid; T. Protein, Body Fluid Source Pleural fluid; Total Protein, Body Fluid 2760 mg/dL
[2023-08-11 06:13] LABS: Glucose,Whole Blood 93 mg/dL (70-110)
[2023-08-11 11:18] LABS: HGB 11.3 gm/dL (13.0-17.5); Hypochromasia Slight; MCH 28.5 pg (25.0-35.0); MCHC 31.2 g/dL (31.0-37.0); MCV 91.2 fL (80.0-100.0); Platelet Count 543 k/uL (150-450); RBC 3.95 m/uL (4.30-5.90); RDW 14.4 % (11.5-15.5)
[2023-08-11 11:25] LABS: African American GFR (CKD) >90 (>60 ml/min/1.73 sqM); Anion Gap 4 mmol/L; Blood Urea Nitrogen 13 mg/dL (9-20); Carbon Dioxide 31 mmol/L (22-30); Chloride 97 mmol/L (98-107); Glucose 80 mg/dL (74-99); Non-African American GFR(CKD) >90 (>60 ml/min/1.73 sqM); Potassium 3.4 mmol/L (3.5-5.1); Sodium 132 mmol/L (137-145)
[2023-08-11 11:28] LABS: Glucose,Whole Blood 83 mg/dL (70-110)
[2023-08-11] MEDS ORDERED: Potassium Replacement Protocol 1 EACH MISC MISCELLANE PRN (11:56)
--- NOTE | 2023-08-11 12:01 | P.PN ---
Subjective Progress Note Date: 08/11/23 CHIEF COMPLAINT: Abdominal pain HISTORY OF PRESENT ILLNESS: Patient is feeling better today. He reports a decrease in abdominal pain. NG tube with 350 mL output during night and 50ml this morning. He denies any nausea. Patient's NG tube was advanced this morning. CT scan abdomen pelvis reports similar appearance of small bowel obstruction. CAT scan results reviewed with Dr. Clay. [id number] Patient denies any flatus or BM. febrile. WBC is up from 12-14 Hgb 11.3 potassium 3.4 and being replaced sodium 132 Patient seen and examined with Dr. Clay PHYSICAL EXAM: VITAL SIGNS: Reviewed. GENERAL: no acute distress. ABDOMEN: Mildly distended. NEUROLOGIC: awake and alert ASSESSMENT: 1. Small bowel obstruction versus ileus 2. Possible ischemic colitis on admission 3. Bilateral pleural effusions evaluated by pulmonary service. Status post right-sided thoracentesis 4. History of splenectomy 5. Hypokalemia PLAN: -Continue NG tube for decompression -Keep patient n.p.o. -Continue gentle hydration -Continue to monitor -Potassium being replaced Physician Body Line Finisher note has been reviewed by physician. Signing provider agrees with the documented findings, assessment, and plan of care. Report Objective - Vital Signs Vital signs: Vital Signs Temp 97.6 F 08/11/23 06:55 Pulse 77 08/11/23 06:55 Resp 16 08/11/23 06:55 BP 102/61 08/11/23 06:55 Pulse Ox 94 L 08/11/23 06:55 FiO2 Intake & Output 08/10/23 08/11/23 08/11/23 18:59 06:59 18:59 Output Total 200 700 Balance -200 -700 Weight 74.1 kg Output: Gastric Drainage 200 350 Urine 350 Other: Voiding Method Urinal # Voids 1 - Labs CBC & Chem 7: 08/11/23 10:33 08/11/23 10:33 Labs: Abnormal Lab Results - Last 24 Hours (Table) 08/11/23 08/11/23 Range/Units 10:33 10:33 WBC 14.0 H (3.8-10.6) k/uL RBC 3.95 L (4.30-5.90) m/uL Hgb 11.3 L (13.0-17.5) gm/dL Hct 36.0 L (39.0-53.0) % Plt Count 543 H (150-450) k/uL Sodium 132 L (137-145) mmol/L Potassium 3.4 L (3.5-5.1) mmol/L Chloride 97 L (98-107) mmol/L Carbon Dioxide 31 H (22-30) mmol/L Calcium 8.0 L (8.4-10.2) mg/dL
--- NOTE | 2023-08-11 12:09 | P.PN ---
Subjective Progress Note Date: 08/11/23 72-year-old male with a history of Hodgkin's lymphoma status post chemo radiation and splenectomy in the 1970s, atrial fibrillation, dyslipidemia, coronary artery disease with myocardial infarction and coronary artery bypass surgery, and prostate cancer who presented to the emergency department with complaints of abdominal pain. Laboratory analysis in the ER included CBC, CMP, CRP, lipase, and urinalysis which were remarkable for sodium of 127 and C-reactive protein of 17. Influenza A/B/RSV/COVID-19 PCR testing was negative. Initially on presentation patient had stable vital signs but was noted to have a fever of 101.2F. Slightly after presentation patient became hypotensive requiring 1.5 L of fluid resuscitation. He remained hypotensive and therefore was started on norepinephrine. Repeat CT abdomen pelvis obtained today demonstrates new left lower lobe airspace opacities, dilation of the small bowel loops with large amount of stool, cardiomegaly with right-sided pleural effusion and anasarca as well as heterogeneous enhancement of the liver consistent with congestive heart failure. He was started on vancomycin and Zosyn. Arrangements were made for admission to the ICU. He was seen by pulmonary, infectious disease, and general surgery. Antibiotics were optimized to Zosyn only. He underwent echocardiogram which showed an ejection fraction of 30 to 35% with severe global hypokinesis. His abdominal pain got worse on the morning of 08/08 and he started having vomiti ng. Repeat CT showed ileus versus small bowel obstruction and an NG tube was placed. 08/10 Patient was seen and examined. Feels slightly better than yesterday. Currently with NG tube to suction. CT AP done today shows continued SBO. CBC WBC 12.74 Hg 11.7 Hct 35.8 Plt 538. BMP Cl 95, AG 12.6. 08/11 Patient was seen and examined. Feeling much better today. R thoracentesis performed yesterday, 1.2L removed. Lights criteria seem to indicate this is exudative in nature. He is maintained on Zosyn (D11). Still with significant output from NG tube. Surgery recommends continued management with NPO, NG tube to suction. CBC WBC 14 Hg 11.3 Hct 36 Plt 543. BMP Na 132, K 3.4, Cl 97, bicarb 31, Ca 8. Vital signs reviewed General: Nontoxic, no distress, appears at stated age Cardiovascular: S1S2 reg, no murmur Lungs: Decreased be b/l, no rales, no accessory muscle use Abdominal: Soft, +tender to palpation diffusely, no guarding Ext: No gross muscle atrophy, no edema b/l lower extremities, no contractures Neuro: no focal neuro deficits Psych: Alert, oriented, appropriate affect Based on my assessment of this patient, this patient meets a high complexity level of care. Patient has an acute diagnosis of SBO complicated with PNA and bilateral pleural effusions that poses a threat to life or bodily function. Ileus and probable ischemic colitis: NPO. NG tube to suction. Surgery on board. Pneumonia: Zosyn 3.375 g every 8 hours IV piggyback (D11). ID and Pulmonary on board. Bilateral pleural effusion: Underwent right sided thoracentesis 1.2 L removed. Follow cultures. Compensated Systolic CHF, EF 30 to 35%: Patient refusing all oral medications including: Spironolactone 50 mg at night, lisinopril 5 mg, Metoprolol 12.5 mg PO BID Thrombocytosis: Reactive. Chronic: Atrial fibrillation, Coronary artery disease with history of myocardial infarction status post coronary artery bypass grafting, Hypothyroidism, Dyslipidemia Resolved: HypoNa, Septic shock Hyponatremia, resolved CODE STATUS: FULL CODE DVT Prophylaxis: Lovenox GI Prophylaxis: Designated medical POA if patient is not able to make medical decisions for themselves: I have reviewed the following sec reporting consultant notes: Surgery note I have reviewed the results of the following tests: CBC, BMP. I have ordered the following tests: CBC and BMP I have discussed the care of this patient with the following independent historian: I have independently interpreted the following test below: I have discussed the management of this patient with the following physician: Objective - Vital Signs Vital signs: Vital Signs Temp 97.6 F 08/11/23 06:55 Pulse 77 08/11/23 06:55 Resp 16 08/11/23 06:55 BP 102/61 08/11/23 06:55 Pulse Ox 94 L 08/11/23 06:55 FiO2 Intake & Output 08/10/23 08/11/23 08/11/23 18:59 06:59 18:59 Output Total 200 700 Balance -200 -700 Weight 74.1 kg 74.1 kg Output: Gastric Drainage 200 350 Urine 350 Other: Voiding Method Urinal # Voids 1 - Labs CBC & Chem 7: 08/11/23 10:33 08/11/23 10:33 Labs: Abnormal Lab Results - Last 24 Hours (Table) 08/11/23 08/11/23 Range/Units 10:33 10:33 WBC 14.0 H (3.8-10.6) k/uL RBC 3.95 L (4.30-5.90) m/uL Hgb 11.3 L (13.0-17.5) gm/dL Hct 36.0 L (39.0-53.0) % Plt Count 543 H (150-450) k/uL Sodium 132 L (137-145) mmol/L Potassium 3.4 L (3.5-5.1) mmol/L Chloride 97 L (98-107) mmol/L Carbon Dioxide 31 H (22-30) mmol/L Calcium 8.0 L (8.4-10.2) mg/dL
[2023-08-11] MEDS: POTASSIUM CHLORIDE 10 MEQ in WATER FOR INJECTION 1 100ML.BAG IVPB SCH (12:17)
--- NOTE | 2023-08-11 14:01 | P.PN ---
Subjective Progress Note Date: 08/11/23 The patient is seen today August 07, 2023 and follow-up on the regular medical floor. He is currently sitting up in the bedside. Awake and alert in no acute distress. He is maintaining good O2 saturations in the 90s on room air. He is a febrile. Hemodynamically stable. He has a PICC line in place and is receiving TPN for nutritional support. Blood cultures are no growth. Urine culture revealed no growth. White count 11.6. Hemoglobin 11.5. Sodium 133. Potassium 4.0. Bicarb 22. BUN 10. Creatinine 0.7. Glucose 90. He remains on Lovenox for DVT prophylaxis. Continued on antibiotics in the form of Zosyn. The patient is seen today August 08, 2023 in follow-up on the regular medical floor. He is awake and alert in no acute distress. He is having some abdominal discomfort this morning. No worsening shortness of breath, cough or congestion. Maintaining good O2 saturations in the 90s on room air. He has normal staying at KVO. He has been afebrile. Hemodynamically stable. CT scan of the abdomen and pelvis revealed dilated small bowel loops extending towards the ileum. Small bowel obstruction should be considered. Ileus could be considered. Zone of transition not clearly identified. Small amount of ascites adjacent to the liver. Moderate bilateral pleural effusions with adjacent atelectasis. White count 11.7. Hemoglobin 11.9. Platelets 416. The patient is seen today August 09, 2023 in follow-up on the regular medical floor. He is a bit lethargic today. He is arousable. He is somewhat agitated. He told us to get out of the room. He was refusing to sit up for possible thoracentesis today. Ultrasound of the chest does reveal a 11 cm pocket on the right and a 10 m 10 cm pocket on the left. He is stable and maintaining O2 saturations in the 90s on room air. Blood cultures revealed no growth. Urine culture revealed no growth. White count 12.7. Hemoglobin 11.9. Platelets 510. Sodium 136. Potassium 4.2. Bicarb 24. BUN 13. Creatinine 1.0. Glucose 90. He is continued on D5 and a half normal saline at 50 MLS per hour. Lovenox for DVT prophylaxis. Remains on antibiotics in the form of Zosyn. The patient is seen today August 10, 2023 in follow-up on the regular medical floor. He is more awake and alert today. Maintaining O2 saturations in the 90s on room air. Nasogastric tube remains in place. White count 12.7. Hemoglobin 11.7. Platelets 538. Sodium 137. Potassium 3.7. Bicarb 29. BUN 13. Creatinine 0.9. Glucose 87. Continued on antibiotics in the form of Zosyn. Lovenox for DVT prophylaxis. The patient was agreeable to thoracentesis today. He had 1.2 L removed from his right pleural cavity. Cytology and fluid analysis pending. The patient is seen today August 11, 2023 in follow-up on the regular medical floor. He is sitting up in bed. Awake and alert in no acute distress. He denies any worsening shortness of breath, cough or congestion. He is maintaining good O2 saturations in the 90s on room air. He is afebrile. Hemodynamically stable. Nasogastric tube remains in place. Denies any s ignificant nausea. No abdominal pain. Follow-up CT scan of the abdomen continues to show no significant change in the appearance of the small bowel obstruction. Contrast is seen within the small bowel and does appear to have passed some into the colon. This may relate to a partial small bowel ob struction versus ileus. Left pleural effusion remains. Pleural fluid analysis from the right thoracentesis yesterday reveals transudate with a protein of 2.7 and an LDH of 146. No plans for thoracentesis of the left chest today. Remains on antibiotics in the form of Zosyn. Lovenox for DVT prophylaxis. Objective - Vital Signs Vital signs: Vital Signs Temp 97.6 F 08/11/23 06:55 Pulse 77 08/11/23 06:55 Resp 16 08/11/23 06:55 BP 102/61 08/11/23 06:55 Pulse Ox 94 L 08/11/23 06:55 FiO2 Intake & Output 08/10/23 08/11/23 08/11/23 18:59 06:59 18:59 Output Total 200 700 Balance -200 -700 Weight 74.1 kg 74.1 kg Output: Gastric Drainage 200 350 Urine 350 Other: Voiding Method Urinal # Voids 1 - Exam General: Alert, cooperative, thin 72-year-old male, remains on room air Head exam was generally normal. There was no scleral icterus or corneal arcus. Mucous membranes were moist. Derm: warm, dry Eyes: EOMI, no lid lag, anicteric sclera, pupils equal round reactive to light ENT: Nose and ears atraumatic, mucous membranes dry. Nasogastric tube remains in place Cardiovascular: S1S2 reg, n soft systolic ejection murmur over the left apex. The patient also has a scar of previous thoracotomy Lungs: Diminished in the bilateral bases, crackles left greater than right. Abdominal: Soft, tender to palpation diffusely, no guarding, scar of previous abdominal surgeries noted. No rebound tenderness. Ext: no gross muscle atrophy, no contractures Neuro: CN II-XII grossly intact, No focal neuro deficits Psych: Alert, oriented, appropriate affect - Labs CBC & Chem 7: 08/11/23 10:33 08/11/23 10:33 Labs: Abnormal Lab Results - Last 24 Hours (Table) 08/11/23 08/11/23 Range/Units 10:33 10:33 WBC 14.0 H (3.8-10.6) k/uL RBC 3.95 L (4.30-5.90) m/uL Hgb 11.3 L (13.0-17.5) gm/dL Hct 36.0 L (39.0-53.0) % Plt Count 543 H (150-450) k/uL Sodium 132 L (137-145) mmol/L Potassium 3.4 L (3.5-5.1) mmol/L Chloride 97 L (98-107) mmol/L Carbon Dioxide 31 H (22-30) mmol/L Calcium 8.0 L (8.4-10.2) mg/dL Assessment and Plan Assessment: Acute hypotension/shock, a combination of hypovolemic and septic in nature, recovered and the patient is currently normotensive and the procalcitonin level is on the decline Abdominal discomfort with nausea and vomiting. CT scan of the abdomen reveals dilated small bowel loops extending towards the ileum. Small bowel obstruction should be considered. Ileus could be considered. Zone of transition not clearly identified. Nasogastric tube placed. Follow-up CT scan from 08/10/2023 shows no significant change Bilateral pleural effusions, right-sided thoracentesis August 10, 2023 with 1.2 L of straw-colored fluid removed, transudate, cytology pending, remains stable and on room air CHF with impaired ejection fraction of 35 to 40% with chronic systolic heart failure based on echocardiogram in 2019, the patient has an AICD in place, repeat echocardiogram showed an ejection fraction of around 30 to 35% along with global hypokinesis Coronary artery disease previous bypass surgery and the patient's most recent cardiac catheterization is from May 2021 and this indicated patent GOMEZ to LAD and patent SVG to PDA and occluded SVG to OM1, OM 2 and diagonal. [place] coronary arteries were also disease. Medical management was offered to this patient. Hyperlipidemia Hypothyroidism History of Hodgkin's lymphoma with a previous splenectomy followed by chemoradiation therapy back in History of prostate cancer, UA is negative at this point in time, the patient has been treated with therapy in the past Hyponatremia, likely hypovolemic in nature secondary to diarrhea, sodium level is improving Plan: The patient was seen and evaluated CT scan of the abdomen, labs and medications reviewed Pleural fluid from yesterday's thoracentesis transudate, cytology pending No plans for left-sided thoracentesis at this time Currently stable and on room air Nasogastric tube remains Continued on Zosyn We will continue to follow I have personally seen and examined the patient, performed the documentation and the assessment and plan as written. Number of minutes spent on the visit: 10.
--- NOTE | 2023-08-11 14:49 | P.PN ---
Subjective Progress Note Date: 08/11/23 Principal diagnosis: Reason for follow-up is sepsis, ileus and possible aspiration pneumonia Patient is a 80-year-old male with a past medical history significant for atrial fibrillation hypertension hyperlipidemia AR did have history of Hodgkin lymphoma and prostate cancer splenectomy as a part of staging for the Hodgkin lymphoma back in the 70s presenting to the ER for evaluation of abdominal pain and also have an episode of vomiting and apparently the patient did have diarrhea prior to coming to the hospital patient did have a CT abdominal pelvis concerning for left lower lobe airspace disease and there was also concerning for ileus with initial concern for sepsis secondary to abdominal source. On today's evaluation that is 08/11/2023, the patient continues to be afebrile, the patient is on room air and breathing comfortably, the Pt denies having any chest pain, did have occasional cough, the patient abdominal pain has decreased in intensity still have the energy passing some gas but did not have any bowel movement. The patient white count is 14,000, creatinine 0.70 Objective - Vital Signs Vital signs: Vital Signs Temp 97.6 F 08/11/23 06:55 Pulse 77 08/11/23 06:55 Resp 16 08/11/23 06:55 BP 102/61 08/11/23 06:55 Pulse Ox 94 L 08/11/23 06:55 FiO2 Intake & Output 08/10/23 08/11/23 08/11/23 18:59 06:59 18:59 Output Total 200 700 Balance -200 -700 Weight 74.1 kg 74.1 kg Output: Gastric Drainage 200 350 Urine 350 Other: Voiding Method Urinal # Voids 1 - Exam GENERAL DESCRIPTION: An elderly male lying in bed in no distress RESPIRATORY SYSTEM: Unlabored breathing , decreased breath sounds at bases HEART: S1 S2 regular rate and rhythm , ABDOMEN: Soft , slightly tense EXTREMITIES: No edema feet - Labs CBC & Chem 7: 08/11/23 10:33 08/11/23 10:33 Labs: Abnormal Lab Results - Last 24 Hours (Table) 08/11/23 08/11/23 Range/Units 10:33 10:33 WBC 14.0 H (3.8-10.6) k/uL RBC 3.95 L (4.30-5.90) m/uL Hgb 11.3 L (13.0-17.5) gm/dL Hct 36.0 L (39.0-53.0) % Plt Count 543 H (150-450) k/uL Sodium 132 L (137-145) mmol/L Potassium 3.4 L (3.5-5.1) mmol/L Chloride 97 L (98-107) mmol/L Carbon Dioxide 31 H (22-30) mmol/L Calcium 8.0 L (8.4-10.2) mg/dL Assessment and Plan (1) Leukocytosis Current Visit: Yes Status: Acute Code(s): D72.829 - ELEVATED WHITE BLOOD CELL COUNT, UNSPECIFIED SNOMED Code(s): 880330773 (2) Pneumonia Current Visit: Yes Status: Acute Code(s): J18.9 - PNEUMONIA, UNSPECIFIED ORG ANISM SNOMED Code(s): 836338078 Plan: 1patient presented hospital with sepsis/septic shock in this patient who did have a fever tachycardia hypotension requiring pressor support patient predominately have abdominal symptoms of pain and did have diarrhea with a recent diagnosis of colitis and initial concern for possible ischemic versus inf ectious colitis 2-CT abdominal pelvis also shows evidence of left lower lobe pneumonia and patient did have vomiting before coming to the hospital with question of possible aspiration pneumonia, patient also have evidence of effusion status post thoracocentesis fluid cultures will be followed and antibiotic adjusted if needed 3-patient did have repeat CT showing evidence of ileus also noticed a slight worsening of his white count but no fever and will monitor closely patient to continue with the Zosyn and continue supportive care Dictation was produced using [employer] dictation software. please excuse any grammatical, word or spelling errors. Time with Patient: Less than 30
[2023-08-11 17:03] LABS: Glucose,Whole Blood 74 mg/dL (70-110)
[2023-08-11 20:35] LABS: Glucose,Whole Blood 74 mg/dL (70-110)
[2023-08-11] MEDS: TAMSULOSIN 0.4 MG CAP.ER.24H PO SCH (21:22)
[2023-08-12 06:16] LABS: Glucose,Whole Blood 96 mg/dL (70-110)
[2023-08-12 10:32] LABS: HCT 38.3 % (39.0-53.0); Hypochromasia Slight; MCH 28.6 pg (25.0-35.0); MCHC 31.3 g/dL (31.0-37.0); MCV 91.4 fL (80.0-100.0); Mean Platelet Volume 7.6; Platelet Count 537 k/uL (150-450); RBC 4.19 m/uL (4.30-5.90); RDW 14.3 % (11.5-15.5); WBC 13.9 k/uL (3.8-10.6)
--- NOTE | 2023-08-12 10:41 | P.PN ---
Subjective Progress Note Date: 08/12/23 72-year-old male with a history of Hodgkin's lymphoma status post chemo radiation and splenectomy in the 1970s, atrial fibrillation, dyslipidemia, coronary artery disease with myocardial infarction and coronary artery bypass surgery, and prostate cancer who presented to the emergency department with complaints of abdominal pain. Laboratory analysis in the ER included CBC, CMP, CRP, lipase, and urinalysis which were remarkable for sodium of 127 and C-reactive protein of 17. Influenza A/B/RSV/COVID-19 PCR testing was negative. Initially on presentation patient had stable vital signs but was noted to have a fever of 101.2F. Slightly after presentation patient became hypotensive requiring 1.5 L of fluid resuscitation. He remained hypotensive and therefore was started on norepinephrine. Repeat CT abdomen pelvis obtained today demonstrates new left lower lobe airspace opacities, dilation of the small bowel loops with large amount of stool, cardiomegaly with right-sided pleural effusion and anasarca as well as heterogeneous enhancement of the liver consistent with congestive heart failure. He was started on vancomycin and Zosyn. Arrangements were made for admission to the ICU. He was seen by pulmonary, infectious disease, and general surgery. Antibiotics were optimized to Zosyn only. He underwent echocardiogram which showed an ejection fraction of 30 to 35% with severe global hypokinesis. His abdominal pain got worse on the morning of 08/08 and he started having vomiti ng. Repeat CT showed ileus versus small bowel obstruction and an NG tube was placed. 08/10 Patient was seen and examined. Feels slightly better than yesterday. Currently with NG tube to suction. CT AP done today shows continued SBO. CBC WBC 12.74 Hg 11.7 Hct 35.8 Plt 538. BMP Cl 95, AG 12.6. 08/11 Patient was seen and examined. Feeling much better today. R thoracentesis performed yesterday, 1.2L removed. Lights criteria seem to indicate this is exudative in nature (protein ratio slightly > 0.5). He is maintained on Zosyn (D11). Still with significant output from NG tube. Surgery recommends continued management with NPO, NG tube to suction. CBC WBC 14 Hg 11.3 Hct 36 Plt 543. BMP Na 132, K 3.4, Cl 97, bicarb 31, Ca 8. 08/12 Patient was seen and examined. Reports feeling better. Some spastic abdominal pain intermittently. Pulmonary note reviewed, no plans for L thoracentesis as of now. He is maintained on Zosyn (D12). Still with significant output from NG tube. Surgery recommends continued management with NPO, NG tube to suction. Pleural fluid cultures negative so far. CBC shows WBC 13.9 Hg 12 Hct 38.3 Plt 537. BMP pending at the time of this note. Vital signs reviewed General: Nontoxic, no distress, appears at stated age Cardiovascular: S1S2 reg, no murmur Lungs: Decreased be b/l, no rales, no accessory muscle use Abdominal: Soft, +tender to palpation diffusely, no guarding Ext: No gross muscle atrophy, no edema b/l lower extremities, no contractures Neuro: no focal neuro deficits Psych: Alert, oriented, appropriate affect Based on my assessment of this patient, this patient meets a high complexity level of care. Patient has an acute diagnosis of SBO complicated with PNA and bilateral pleural effusions that poses a threat to life or bodily function. Ileus and probable ischemic colitis: NPO. NG tube to suction. Surgery on board. Pneumonia: Zosyn 3.375 g every 8 hours IV piggyback (D12). ID and Pulmonary on board. Bilateral pleural effusion: Underwent right sided thoracentesis 1.2 L removed. Follow cultures. Compensated Systolic CHF, EF 30 to 35%: Spironolactone 50 mg PO QD, lisinopril 5 mg PO QHS, Metoprolol 12.5 mg PO BID. Thrombocytosis: Reactive. Chronic: Atrial fibrillation, CAD with history of [place] status post CABG, Hypothyroidism, Dyslipidemia Resolved: HypoNa, Septic shock CODE STATUS: FULL CODE DVT Prophylaxis: Lovenox GI Prophylaxis: Designated medical POA if patient is not able to make medical decisions for themselves: I have reviewed the following staffing consultant notes: Surgery, ID, Pulmonary note I have reviewed the results of the following tests: CBC, Pleural fluid cultures. I have ordered the following tests: BMP. I have discussed the care of this patient with the following independent historian: I have independently interpreted the following test below: I have discussed the management of this patient with the following physician: Objective - Vital Signs Vital signs: Vital Signs Temp 98.2 F 08/12/23 00:24 Pulse 97 08/12/23 06:50 Resp 17 02/17/24 06:50 BP 157/96 08/12/23 06:50 Pulse Ox 91 L 08/12/23 06:50 FiO2 Intake & Output 08/11/23 08/12/23 08/12/23 18:59 06:59 18:59 Output Total 250 Balance -250 Weight 74.1 kg Output: Gastric Drainage 250 Other: Voiding Method Urinal # Voids 1 - Labs CBC & Chem 7: 08/12/23 09:54 08/11/23 10:33 Labs: Abnormal Lab Results - Last 24 Hours (Table) 08/11/23 08/11/23 Range/Units 10:33 10:33 WBC 14.0 H (3.8-10.6) k/uL RBC 3.95 L (4.30-5.90) m/uL Hgb 11.3 L (13.0-17.5) gm/dL Hct 36.0 L (39.0-53.0) % Plt Count 543 H (150-450) k/uL Sodium 132 L (137-145) mmol/L Potassium 3.4 L (3.5-5.1) mmol/L Chloride 97 L (98-107) mmol/L Carbon Dioxide 31 H (22-30) mmol/L Calcium 8.0 L (8.4-10.2) mg/dL Microbiology - Last 24 Hours (Table) 08/10/23 10:00 Gram Stain - Preliminary Pleural Fluid Body Fluid Culture - Preliminary 08/10/23 10:00 Acid Fast Bacilli Smear - Preliminary Pleural Fluid
[2023-08-12 10:54] LABS: African American GFR (CKD) >90 (>60 ml/min/1.73 sqM); Anion Gap 7 mmol/L; Blood Urea Nitrogen 13 mg/dL (9-20); Calcium 8.1 mg/dL (8.4-10.2); Carbon Dioxide 26 mmol/L (22-30); Chloride 98 mmol/L (98-107); Glucose 93 mg/dL (74-99); Non-African American GFR(CKD) >90 (>60 ml/min/1.73 sqM); Potassium 3.8 mmol/L (3.5-5.1); Sodium 131 mmol/L (137-145)
[2023-08-12 11:48] LABS: Glucose,Whole Blood 94 mg/dL (70-110)
--- NOTE | 2023-08-12 12:02 | P.PN ---
Subjective Progress Note Date: 08/12/23 Principal diagnosis: Reason for follow-up is sepsis, ileus and possible aspiration pneumonia Patient is a 80-year-old male with a past medical history significant for atrial fibrillation hypertension hyperlipidemia DE did have history of Hodgkin lymphoma and prostate cancer splenectomy as a part of staging for the Hodgkin lymphoma back in the 70s presenting to the ER for evaluation of abdominal pain and also have an episode of vomiting and apparently the patient did have diarrhea prior to coming to the hospital patient did have a CT abdominal pelvis concerning for left lower lobe airspace disease and there was also concerning for ileus with initial concern for sepsis secondary to abdominal source. On today's evaluation that is 08/12/2023, Patient is afebrile patient is currently on room air and denies having any shortness of breath, the patient denies any chest pain did have occasional cough but no sputum production, the patient denies any nausea vomiting still have the NG in no significant abdominal pain did not have any bowel movement. Patient white count is 13.9 creatinine 0.69 Objective - Vital Signs Vital signs: Vital Signs Temp 98.2 F 08/12/23 00:24 Pulse 89 08/12/23 08:28 Resp 17 08/12/23 08:28 BP 157/96 08/12/23 06:50 Pulse Ox 91 L 08/12/23 06:50 FiO2 Intake & Output 08/11/23 08/12/23 08/12/23 18:59 06:59 18:59 Output Total 250 Balance -250 Weight 74.1 kg Output: Gastric Drainage 250 Other: Voiding Method Urinal Urinal # Voids 1 - Exam GENERAL DESCRIPTION: An elderly male lying in bed in no distress RESPIRATORY SYSTEM: Unlabored breathing , decreased breath sounds at bases HEART: S1 S2 regular rate and rhythm , ABDOMEN: Soft , slightly tense EXTREMITIES: No edema feet - Labs CBC & Chem 7: 08/12/23 09:54 08/12/23 09:54 Labs: Abnormal Lab Results - Last 24 Hours (Table) 08/12/23 08/12/23 Range/Units 09:54 09:54 WBC 13.9 H (3.8-10.6) k/uL RBC 4.19 L (4.30-5.90) m/uL Hgb 12.0 L (13.0-17.5) gm/dL Hct 38.3 L (39.0-53.0) % Plt Count 537 H (150-450) k/uL Sodium 131 L (137-145) mmol/L Calcium 8.1 L (8.4-10.2) mg/dL Microbiology - Last 24 Hours (Table) 08/10/23 10:00 Gram Stain - Preliminary Pleural Fluid Body Fluid Culture - Preliminary 08/10/23 10:00 Acid Fast Bacilli Smear - Preliminary Pleural Fluid Assessment and Plan (1) Leukocytosis Current Visit: Yes Status: Acute Code(s): D72.829 - ELEVATED WHITE BLOOD CELL COUNT, UNSPECIFIED SNOMED Code(s): 907142286 (2) Pneumonia Current Visit: Yes Status: Acute Code(s): J18.9 - PNEUMONIA, UNSPECIFIED ORG ANISM SNOMED Code(s): 226348491 Plan: 1patient presented hospital with sepsis/septic shock in this patient who did have a fever tachycardia hypotension requiring pressor support patient predominately have abdominal symptoms of pain and did have diarrhea with a recent diagnosis of colitis and initial concern for possible ischemic versus inf ectious colitis 2-CT abdominal pelvis also shows evidence of left lower lobe pneumonia and patient did have vomiting before coming to the hospital with question of possible aspiration pneumonia, patient also have evidence of effusion status post thoracocentesis fluid cultures will be followed and antibiotic adjusted if needed 3-patient did have repeat CT showing evidence of ileus also noticed a slight worsening of his white count which is trending down and remains to be afebrile 4- patient to continue with the Zosyn and continue supportive care Dictation was produced using [employer] dictation software. please excuse any grammatical, word or spelling errors. Time with Patient: Less than 30
--- NOTE | 2023-08-12 14:17 | P.PN ---
Subjective Progress Note Date: 08/12/23 The patient is seen today August 07, 2023 and follow-up on the regular medical floor. He is currently sitting up in the bedside. Awake and alert in no acute distress. He is maintaining good O2 saturations in the 90s on room air. He is a febrile. Hemodynamically stable. He has a PICC line in place and is receiving TPN for nutritional support. Blood cultures are no growth. Urine culture revealed no growth. White count 11.6. Hemoglobin 11.5. Sodium 133. Potassium 4.0. Bicarb 22. BUN 10. Creatinine 0.7. Glucose 90. He remains on Lovenox for DVT prophylaxis. Continued on antibiotics in the form of Zosyn. The patient is seen today August 08, 2023 in follow-up on the regular medical floor. He is awake and alert in no acute distress. He is having some abdominal discomfort this morning. No worsening shortness of breath, cough or congestion. Maintaining good O2 saturations in the 90s on room air. He has normal staying at KVO. He has been afebrile. Hemodynamically stable. CT scan of the abdomen and pelvis revealed dilated small bowel loops extending towards the ileum. Small bowel obstruction should be considered. Ileus could be considered. Zone of transition not clearly identified. Small amount of ascites adjacent to the liver. Moderate bilateral pleural effusions with adjacent atelectasis. White count 11.7. Hemoglobin 11.9. Platelets 416. The patient is seen today August 09, 2023 in follow-up on the regular medical floor. He is a bit lethargic today. He is arousable. He is somewhat agitated. He told us to get out of the room. He was refusing to sit up for possible thoracentesis today. Ultrasound of the chest does reveal a 11 cm pocket on the right and a 10 m 10 cm pocket on the left. He is stable and maintaining O2 saturations in the 90s on room air. Blood cultures revealed no growth. Urine culture revealed no growth. White count 12.7. Hemoglobin 11.9. Platelets 510. Sodium 136. Potassium 4.2. Bicarb 24. BUN 13. Creatinine 1.0. Glucose 90. He is continued on D5 and a half normal saline at 50 MLS per hour. Lovenox for DVT prophylaxis. Remains on antibiotics in the form of Zosyn. The patient is seen today August 10, 2023 in follow-up on the regular medical floor. He is more awake and alert today. Maintaining O2 saturations in the 90s on room air. Nasogastric tube remains in place. White count 12.7. Hemoglobin 11.7. Platelets 538. Sodium 137. Potassium 3.7. Bicarb 29. BUN 13. Creatinine 0.9. Glucose 87. Continued on antibiotics in the form of Zosyn. Lovenox for DVT prophylaxis. The patient was agreeable to thoracentesis today. He had 1.2 L removed from his right pleural cavity. Cytology and fluid analysis pending. The patient is seen today August 11, 2023 in follow-up on the regular medical floor. He is sitting up in bed. Awake and alert in no acute distress. He denies any worsening shortness of breath, cough or congestion. He is maintaining good O2 saturations in the 90s on room air. He is afebrile. Hemodynamically stable. Nasogastric tube remains in place. Denies any s ignificant nausea. No abdominal pain. Follow-up CT scan of the abdomen continues to show no significant change in the appearance of the small bowel obstruction. Contrast is seen within the small bowel and does appear to have passed some into the colon. This may relate to a partial small bowel ob struction versus ileus. Left pleural effusion remains. Pleural fluid analysis from the right thoracentesis yesterday reveals transudate with a protein of 2.7 and an LDH of 146. No plans for thoracentesis of the left chest today. Remains on antibiotics in the form of Zosyn. Lovenox for DVT prophylaxis. The patient is seen today August 12, 2023 in follow-up on the regular medical floor. He is awake and alert in no acute distress. Sitting up in bed. Denies any worsening shortness of breath, cough or congestion. Nasogastric tube remains in place. He is maintaining O2 saturations in the 90s on room air. He remains on Lovenox for DVT prophylaxis. Remains on antibiotics in the form of Zosyn. White count 13.9. Hemoglobin 12.0. Platelets 537. Sodium 131. Pot assium 3.8. Bicarb 26. BUN 13. Creatinine 0.69. Glucose 93. Objective - Vital Signs Vital signs: Vital Signs Temp 98.2 F 08/12/23 00:24 Pulse 89 08/12/23 08:28 Resp 17 08/12/23 08:28 BP 157/96 08/12/23 06:50 Pulse Ox 91 L 08/12/23 06:50 FiO2 Intake & Output 08/11/23 08/12/23 08/12/23 18:59 06:59 18:59 Output Total 250 Balance -250 Weight 74.1 kg Output: Gastric Drainage 250 Other: Voiding Method Urinal Urinal # Voids 1 - Exam General: Alert, oriented, thin 72-year-old male, remains on room air Head exam was generally normal. There was no scleral icterus or corneal arcus. Mucous membranes were moist. Derm: warm, dry Eyes: EOMI, no lid lag, anicteric sclera, pupils equal round reactive to light ENT: Nose and ears atraumatic, mucous membranes dry. Nasogastric tube remains in place Cardiovascular: S1S2 reg, n soft systolic ejection murmur over the left apex. The patient also has a scar of previous thoracotomy Lungs: Diminished in the bilateral bases, crackles left greater than right. Abdominal: Soft, tender to palpation diffusely, no guarding, scar of previous abdominal surgeries noted. No rebound tenderness. Ext: no gross muscle atrophy, no contractures Neuro: CN II-XII grossly intact, No focal neuro deficits Psych: Alert, oriented, appropriate affect - Labs CBC & Chem 7: 08/12/23 09:54 08/12/23 09:54 Labs: Abnormal Lab Results - Last 24 Hours (Table) 08/12/23 08/12/23 Range/Units 09:54 09:54 WBC 13.9 H (3.8-10.6) k/uL RBC 4.19 L (4.30-5.90) m/uL Hgb 12.0 L (13.0-17.5) gm/dL Hct 38.3 L (39.0-53.0) % Plt Count 537 H (150-450) k/uL Sodium 131 L (137-145) mmol/L Calcium 8.1 L (8.4-10.2) mg/dL Microbiology - Last 24 Hours (Table) 08/10/23 10:00 Gram Stain - Preliminary Pleural Fluid Body Fluid Culture - Preliminary 08/10/23 10:00 Acid Fast Bacilli Smear - Preliminary Pleural Fluid Assessment and Plan Assessment: Acute hypotension/shock, a combination of hypovolemic and septic in nature, recovered and the patient is currently normotensive and the procalcitonin level is on the decline Abdominal discomfort with nausea and vomiting. CT scan of the abdomen reveals dilated small bowel loops extending towards the ileum. Small bowel obstruction should be considered. Ileus could be considered. Zone of transition not clearly identified. Nasogastric tube placed. Follow-up CT scan from 08/10/2023 shows no significant change Bilateral pleural effusions, right-sided thoracentesis August 10, 2023 with 1.2 L of straw-colored fluid removed, transudate, cytology pending, remains stable and on room air CHF with impaired ejection fraction of 35 to 40% with chronic systolic heart failure based on echocardiogram in 2019, the patient has an AICD in place, repeat echocardiogram showed an ejection fraction of around 30 to 35% along with global hypokinesis Coronary artery disease previous bypass surgery and the patient's most recent cardiac catheterization is from May 2021 and this indicated patent GOMEZ to LAD and patent SVG to PDA and occluded SVG to OM1, OM 2 and diagonal. The pamunkey coronary arteries were also disease. Medical management was offered to this patient. Hyperlipidemia Hypothyroidism History of Hodgkin's lymphoma with a previous splenectomy followed by chemoradiation therapy back in History of prostate cancer, UA is negative at this point in time, the patient has been treated with therapy in the past Hyponatremia, likely hypovolemic in nature secondary to diarrhea, sodium level is improving Plan: The patient was seen and evaluated Labs and medications reviewed Pleural fluid transudate, cytology pending Currently stable and on room air Nasogastric tube remains Continued on Zosyn We will continue to follow I have personally seen and examined the patient, performed the documentation and the assessment and plan as written. Number of minutes spent on the visit: 10.
--- NOTE | 2023-08-12 15:57 | P.PN ---
Subjective Progress Note Date: 08/12/23 Principal diagnosis: Ileus No pain Objective - Vital Signs Vital signs: Vital Signs Temp 98.4 F 08/12/23 14:11 Pulse 93 08/12/23 14:11 Resp 16 08/12/23 14:11 BP 125/71 08/12/23 14:11 Pulse Ox 90 L 08/12/23 14:11 FiO2 Intake & Output 08/11/23 08/12/23 08/12/23 18:59 06:59 18:59 Output Total 250 Balance -250 Weight 74.1 kg Output: Gastric Drainage 250 Other: Voiding Method Urinal Urinal # Voids 1 - Constitutional General appearance: Present: no acute distress, thin - EENT EENT Comment(s): NG in place - Gastrointestinal General gastrointestinal: Absent: tenderness - Labs CBC & Chem 7: 08/12/23 09:54 08/12/23 09:54 Labs: Abnormal Lab Results - Last 24 Hours (Table) 08/12/23 08/12/23 Range/Units 09:54 09:54 WBC 13.9 H (3.8-10.6) k/uL RBC 4.19 L (4.30-5.90) m/uL Hgb 12.0 L (13.0-17.5) gm/dL Hct 38.3 L (39.0-53.0) % Plt Count 537 H (150-450) k/uL Sodium 131 L (137-145) mmol/L Calcium 8.1 L (8.4-10.2) mg/dL Microbiology - Last 24 Hours (Table) 08/10/23 10:00 Gram Stain - Preliminary Pleural Fluid Body Fluid Culture - Preliminary 08/10/23 10:00 Acid Fast Bacilli Smear - Preliminary Pleural Fluid Assessment and Plan Assessment: Delay in transit of oral contrast on serial CT suggests ileus since small bowel isn't that dilated and a small amount of contrast reaches colon. He has ascites on CT. He has evidence of muscle wasting. He didn't eat at home 2 weeks before coming into the hospital and hasn't eaten much in hospital for 11 days. Consider trickle feeds down NG or TPN. Plan: TPN or trickle feeds down NG Time with Patient: Less than 30
[2023-08-12 16:47] LABS: Glucose,Whole Blood 96 mg/dL (70-110)
[2023-08-12 20:31] LABS: Glucose,Whole Blood 95 mg/dL (70-110)
[2023-08-13 06:04] LABS: Glucose,Whole Blood 104 mg/dL (70-110)
[2023-08-13 06:17] LABS: HGB 12.6 gm/dL (13.0-17.5); MCH 29.1 pg (25.0-35.0); MCHC 32.3 g/dL (31.0-37.0); MCV 90.3 fL (80.0-100.0); Mean Platelet Volume 7.6; Platelet Count 581 k/uL (150-450); RBC 4.32 m/uL (4.30-5.90); RDW 14.6 % (11.5-15.5); WBC 15.9 k/uL (3.8-10.6)
[2023-08-13 06:25] LABS: African American GFR (CKD) >90 (>60 ml/min/1.73 sqM); Anion Gap 5 mmol/L; Blood Urea Nitrogen 11 mg/dL (9-20); Calcium 8.1 mg/dL (8.4-10.2); Carbon Dioxide 28 mmol/L (22-30); Chloride 97 mmol/L (98-107); Glucose 103 mg/dL (74-99); Non-African American GFR(CKD) >90 (>60 ml/min/1.73 sqM); Potassium 3.5 mmol/L (3.5-5.1); Sodium 130 mmol/L (137-145)
[2023-08-13] MEDS ORDERED: D5-0.9% NACL WITH KCL 40 MEQ/L 1,000 ML IV SCH (08:30)
--- NOTE | 2023-08-13 09:15 | P.PN ---
Subjective Progress Note Date: 08/13/23 Patient states he feels better. He has no significant complaints abdominal pain. He had a bowel movement. On exam vital signs appear stable. Abdomen soft. Patient will have his nasogastric tube removed. He was started on full liquid diet. Objective - Vital Signs Vital signs: Vital Signs Temp 98.2 F 08/13/23 06:55 Pulse 91 08/13/23 08:14 Resp 17 08/13/23 08:14 BP 137/72 08/13/23 06:55 Pulse Ox 93 L 08/13/23 06:55 FiO2 Intake & Output 08/12/23 08/13/23 08/13/23 18:59 06:59 18:59 Output Total 500 Balance -500 Output: Urine 500 Other: Voiding Method Urinal Urinal Urinal # Voids 2 - Labs CBC & Chem 7: 08/13/23 05:38 08/13/23 05:38 Labs: Abnormal Lab Results - Last 24 Hours (Table) 08/12/23 08/12/23 08/13/23 Range/Units 09:54 09:54 05:38 WBC 13.9 H 15.9 H (3.8-10.6) k/uL RBC 4.19 L (4.30-5.90) m/uL Hgb 12.0 L 12.6 L (13.0-17.5) gm/dL Hct 38.3 L (39.0-53.0) % Plt Count 537 H 581 H (150-450) k/uL Sodium 131 L (137-145) mmol/L Chloride (98-107) mmol/L Glucose (74-99) mg/dL Calcium 8.1 L (8.4-10.2) mg/dL 08/13/23 Range/Units 05:38 WBC (3.8-10.6) k/uL RBC (4.30-5.90) m/uL Hgb (13.0-17.5) gm/dL Hct (39.0-53.0) % Plt Count (150-450) k/uL Sodium 130 L (137-145) mmol/L Chloride 97 L (98-107) mmol/L Glucose 103 H (74-99) mg/dL Calcium 8.1 L (8.4-10.2) mg/dL Microbiology - Last 24 Hours (Table) 08/10/23 10:00 Gram Stain - Preliminary Pleural Fluid Body Fluid Culture - Preliminary
[2023-08-13] MEDS: DEXTROSE 5%-0.9% NACL 1,000 ML IV SCH (09:19)
--- NOTE | 2023-08-13 10:58 | XR ---
EXAMINATION TYPE: XR chest 1V portable DATE OF EXAM: 08/13/2023 10:38 AM CLINICAL INDICATION:Male, 72 years old with history of Pleural effusion, right; H COMPARISON: Chest radiographs from 08/10/2023. TECHNIQUE: XR chest 1V portable Frontal view of the chest. FINDINGS: Lungs/Pleura: No evidence of focal consolidation or pneumothorax. Blunting of the costophrenic angles is present. Pulmonary vascularity: Unremarkable. Heart/mediastinum: Cardiomediastinal silhouette is unremarkable. Single-lead cardiac conduction devic e overlying the left hemithorax with lead projecting over the right ventricle. Musculoskeletal: No acute osseous pathology. Midline sternotomy wires are noted. Other findings: None Lines/Tubes: Interval removal of the enteric tube, Right-sided PICC line with distal tip at the cavoatrial junction. IMPRESSION: 1. Right-sided PICC line with distal tip at the cavoatrial junction. 2. Similar Small bilateral pleural effusion. 3. No acute cardiopulmonary disease/process.
[2023-08-13 11:39] LABS: Glucose,Whole Blood 106 mg/dL (70-110)
[2023-08-13] MEDS: FLUCONAZOLE IN NACL,ISO-OSM 200 MG in SALINE 1 100ML.BAG IVPB SCH (12:00)
--- NOTE | 2023-08-13 12:18 | P.PN ---
Subjective Progress Note Date: 08/13/23 72-year-old male with a history of Hodgkin's lymphoma status post chemo radiation and splenectomy in the 1970s, atrial fibrillation, dyslipidemia, coronary artery disease with myocardial infarction and coronary artery bypass surgery, and prostate cancer who presented to the emergency department with complaints of abdominal pain. Laboratory analysis in the ER included CBC, CMP, CRP, lipase, and urinalysis which were remarkable for sodium of 127 and C-reactive protein of 17. Influenza A/B/RSV/COVID-19 PCR testing was negative. Initially on presentation patient had stable vital signs but was noted to have a fever of 101.2F. Slightly after presentation patient became hypotensive requiring 1.5 L of fluid resuscitation. He remained hypotensive and therefore was started on norepinephrine. Repeat CT abdomen pelvis obtained today demonstrates new left lower lobe airspace opacities, dilation of the small bowel loops with large amount of stool, cardiomegaly with right-sided pleural effusion and anasarca as well as heterogeneous enhancement of the liver consistent with congestive heart failure. He was started on vancomycin and Zosyn. Arrangements were made for admission to the ICU. He was seen by pulmonary, infectious disease, and general surgery. Antibiotics were optimized to Zosyn only. He underwent echocardiogram which showed an ejection fraction of 30 to 35% with severe global hypokinesis. His abdominal pain got worse on the morning of 08/08 and he started having vomiti ng. Repeat CT showed ileus versus small bowel obstruction and an NG tube was placed. 08/10 Patient was seen and examined. Feels slightly better than yesterday. Currently with NG tube to suction. CT AP done today shows continued SBO. CBC WBC 12.74 Hg 11.7 Hct 35.8 Plt 538. BMP Cl 95, AG 12.6. 08/11 Patient was seen and examined. Feeling much better today. R thoracentesis performed yesterday, 1.2L removed. Lights criteria seem to indicate this is exudative in nature (protein ratio slightly > 0.5). He is maintained on Zosyn (D11). Still with significant output from NG tube. Surgery recommends continued management with NPO, NG tube to suction. CBC WBC 14 Hg 11.3 Hct 36 Plt 543. BMP Na 132, K 3.4, Cl 97, bicarb 31, Ca 8. 08/12 Patient was seen and examined. Reports feeling better. Some spastic abdominal pain intermittently. Pulmonary note reviewed, no plans for L thoracentesis as of now. He is maintained on Zosyn (D12). Still with significant output from NG tube. Surgery recommends continued management with NPO, NG tube to suction. Pleural fluid cultures negative so far. CBC shows WBC 13.9 Hg 12 Hct 38.3 Plt 537. BMP Na 131, Ca 8.1. 08/13 Patient was seen and examined. He reports increased work of breathing today. He is maintained on Zosyn (D13). Surgery note reviewed, DC NG tube and s tart FLD. CBC shows WBC 15.9 Hg 12.6 Plt 581. BMP Na 130, Cl 97, Ca 8.1, glu 103. I will switch his IVF from D5 1/2 NS to D5 NS at 50 cc/hr. Vital signs reviewed General: Nontoxic, no distress, appears at stated age Cardiovascular: S1S2 reg, no murmur Lungs: Decreased be b/l, no rales, no accessory muscle use Abdominal: Soft, +tender to palpation diffusely, no guarding Ext: No gross muscle atrophy, no edema b/l lower extremities, no contractures Neuro: no focal neuro deficits Psych: Alert, oriented, appropriate affect Based on my assessment of this patient, this patient meets a high complexity level of care. Patient has an acute diagnosis of SBO complicated with PNA and bilateral pleural effusions that poses a threat to life or bodily function. Ileus and probable ischemic colitis: FLD and advance. Surgery on board. Pneumonia: Zosyn 3.375 g every 8 hours IV piggyback (D13). ID and Pulmonary on board. Bilateral pleural effusion: Underwent right sided thoracentesis 1.2 L removed. Cultures negative so far. Repeat CXR ordered by Pulmonary. Compensated Systolic CHF, EF 30 to 35%: Spironolactone 50 mg PO QD, lisinopril 5 mg PO QHS, Metoprolol 12.5 mg PO BID. Thrombocytosis: Reactive. Chronic: Atrial fibrillation, CAD with history of MS status post CABG, Hypothyroidism, Dyslipidemia Resolved: Septic shock CODE STATUS: FULL CODE DVT Prophylaxis: Lovenox GI Prophylaxis: Designated medical POA if patient is not able to make medical decisions for themselves: I have reviewed the following oracle manufacturing consultant notes: Surgery, ID, Pulmonary note I have reviewed the results of the following tests: CBC, BMP. I have ordered the following tests: I have discussed the care of this patient with the following independent historian: I have independently interpreted the following test below: I have discussed the management of this patient with the following physician: Objective - Vital Signs Vital signs: Vital Signs Temp 98.2 F 08/13/23 06:55 Pulse 91 08/13/23 08:14 Resp 17 08/13/23 08:14 BP 137/72 08/13/23 06:55 Pulse Ox 93 L 08/13/23 06:55 FiO2 Intake & Output 08/12/23 08/13/23 08/13/23 18:59 06:59 18:59 Output Total 500 Balance -500 Output: Urine 500 Other: Voiding Method Urinal Urinal Urinal # Voids 2 - Labs CBC & Chem 7: 08/13/23 05:38 08/13/23 05:38 Labs: Abnormal Lab Results - Last 24 Hours (Table) 08/12/23 08/12/23 08/13/23 Range/Units 09:54 09:54 05:38 WBC 13.9 H 15.9 H (3.8-10.6) k/uL RBC 4.19 L (4.30-5.90) m/uL Hgb 12.0 L 12.6 L (13.0-17.5) gm/dL Hct 38.3 L (39.0-53.0) % Plt Count 537 H 581 H (150-450) k/uL Sodium 131 L (137-145) mmol/L Chloride (98-107) mmol/L Glucose (74-99) mg/dL Calcium 8.1 L (8.4-10.2) mg/dL 08/13/23 Range/Units 05:38 WBC (3.8-10.6) k/uL RBC (4.30-5.90) m/uL Hgb (13.0-17.5) gm/dL Hct (39.0-53.0) % Plt Count (150-450) k/uL Sodium 130 L (137-145) mmol/L Chloride 97 L (98-107) mmol/L Glucose 103 H (74-99) mg/dL Calcium 8.1 L (8.4-10.2) mg/dL Microbiology - Last 24 Hours (Table) 08/10/23 10:00 Gram Stain - Preliminary Pleural Fluid Body Fluid Culture - Preliminary
--- NOTE | 2023-08-13 12:45 | XR ---
EXAMINATION TYPE: XR chest 1V portable DATE OF EXAM: 08/13/2023 12:07 PM CLINICAL INDICATION:Male, 72 years old with history of Status post left thoracentesis; [facility] COMPARISON: Chest radiographs from routine 24 TECHNIQUE: XR chest 1V portable Frontal view of the chest. FINDINGS: Lungs/Pleura: No evidence of focal consolidation or pneumothorax. Blunting of the costophrenic angles is present. Pulmonary vascularity: Unremarkable. Heart/mediastinum: Cardiomediastinal silhouette is enlarged and stable. Single-lead cardiac conductio n device overlying the left hemithorax with lead projecting over the right ventricle. Musculoskeletal: No acute osseous pathology. Other findings: None Lines/Tubes: Right-sided PICC line with distal tip at the cavoatrial junction. IMPRESSION: 1. Persistent bilateral pleural effusions. No evidence or pneumothorax. 2. Right PICC in appropriate position.
--- NOTE | 2023-08-13 13:16 | OP ---
OPERATIVE REPORT DATE OF SERVICE : OPERATION: Left-sided thoracentesis. PREOPERATIVE DIAGNOSIS: Left pleural effusion. POSTOPERATIVE DIAGNOSIS: Left pleural effusion. ANESTHESIA USED: 2 mL of 1% lidocaine. DESCRIPTION OF PROCEDURE: The patient was placed in a sitting upright position, the area below the left scapula was prepared in a sterile fashion. Drapes were applied. The area of the fluid was earlier localized by ultrasound, and a marking was placed at the tip of the scapula and 8th intercostal space. The area was locally anesthetized with lidocaine and a 26-gauge needle was inserted at the same site advanced into the pleural space and the fluid was localized with the needle. Then, a small tiny incision was made and a standard thoracentesis catheter and needle were used, advanced at the same site into the pleural space. Fluid was obtained and the catheter was advanced over the needle into the pleural space. Freely flowing fluid was removed, roughly 1000 mL of straw-colored fluid was removed from the left pleural space. Fluid was not sent for any diagnostic studies since we already had right-sided pleural effusion sent previously for diagnostic studies. Again, the fluid was discarded and it was a total of 1000 mL of freely flowing fluid. Procedure was well tolerated, no complications, chest x-ray was ordered postoperatively. MMODL / IJN: [id number] /
--- NOTE | 2023-08-13 14:45 | P.PN ---
Subjective Progress Note Date: 08/13/23 The patient is seen today August 07, 2023 and follow-up on the regular medical floor. He is currently sitting up in the bedside. Awake and alert in no acute distress. He is maintaining good O2 saturations in the 90s on room air. He is a febrile. Hemodynamically stable. He has a PICC line in place and is receiving TPN for nutritional support. Blood cultures are no growth. Urine culture revealed no growth. White count 11.6. Hemoglobin 11.5. Sodium 133. Potassium 4.0. Bicarb 22. BUN 10. Creatinine 0.7. Glucose 90. He remains on Lovenox for DVT prophylaxis. Continued on antibiotics in the form of Zosyn. The patient is seen today August 08, 2023 in follow-up on the regular medical floor. He is awake and alert in no acute distress. He is having some abdominal discomfort this morning. No worsening shortness of breath, cough or congestion. Maintaining good O2 saturations in the 90s on room air. He has normal staying at KVO. He has been afebrile. Hemodynamically stable. CT scan of the abdomen and pelvis revealed dilated small bowel loops extending towards the ileum. Small bowel obstruction should be considered. Ileus could be considered. Zone of transition not clearly identified. Small amount of ascites adjacent to the liver. Moderate bilateral pleural effusions with adjacent atelectasis. White count 11.7. Hemoglobin 11.9. Platelets 416. The patient is seen today August 09, 2023 in follow-up on the regular medical floor. He is a bit lethargic today. He is arousable. He is somewhat agitated. He told us to get out of the room. He was refusing to sit up for possible thoracentesis today. Ultrasound of the chest does reveal a 11 cm pocket on the right and a 10 m 10 cm pocket on the left. He is stable and maintaining O2 saturations in the 90s on room air. Blood cultures revealed no growth. Urine culture revealed no growth. White count 12.7. Hemoglobin 11.9. Platelets 510. Sodium 136. Potassium 4.2. Bicarb 24. BUN 13. Creatinine 1.0. Glucose 90. He is continued on D5 and a half normal saline at 50 MLS per hour. Lovenox for DVT prophylaxis. Remains on antibiotics in the form of Zosyn. The patient is seen today August 10, 2023 in follow-up on the regular medical floor. He is more awake and alert today. Maintaining O2 saturations in the 90s on room air. Nasogastric tube remains in place. White count 12.7. Hemoglobin 11.7. Platelets 538. Sodium 137. Potassium 3.7. Bicarb 29. BUN 13. Creatinine 0.9. Glucose 87. Continued on antibiotics in the form of Zosyn. Lovenox for DVT prophylaxis. The patient was agreeable to thoracentesis today. He had 1.2 L removed from his right pleural cavity. Cytology and fluid analysis pending. The patient is seen today August 11, 2023 in follow-up on the regular medical floor. He is sitting up in bed. Awake and alert in no acute distress. He denies any worsening shortness of breath, cough or congestion. He is maintaining good O2 saturations in the 90s on room air. He is afebrile. Hemodynamically stable. Nasogastric tube remains in place. Denies any s ignificant nausea. No abdominal pain. Follow-up CT scan of the abdomen continues to show no significant change in the appearance of the small bowel obstruction. Contrast is seen within the small bowel and does appear to have passed some into the colon. This may relate to a partial small bowel ob struction versus ileus. Left pleural effusion remains. Pleural fluid analysis from the right thoracentesis yesterday reveals transudate with a protein of 2.7 and an LDH of 146. No plans for thoracentesis of the left chest today. Remains on antibiotics in the form of Zosyn. Lovenox for DVT prophylaxis. The patient is seen today August 12, 2023 in follow-up on the regular medical floor. He is awake and alert in no acute distress. Sitting up in bed. Denies any worsening shortness of breath, cough or congestion. Nasogastric tube remains in place. He is maintaining O2 saturations in the 90s on room air. He remains on Lovenox for DVT prophylaxis. Remains on antibiotics in the form of Zosyn. White count 13.9. Hemoglobin 12.0. Platelets 537. Sodium 131. Pot assium 3.8. Bicarb 26. BUN 13. Creatinine 0.69. Glucose 93. The patient is seen today August 13, 2023 in follow-up on the regular medical floor. He is currently sitting up in bed. Awake and alert in no acute distress. Maintaining good O2 saturations in the 90s on room air. His nasogastric tube has been removed. He has D5.9 normal saline at 50 mL/h. Thoracentesis performed on the left chest today with 1.0 L of straw-colored fluid removed. Not sent for analysis. He is continued on fluconazole and Zosyn. Lovenox for DVT prophylaxis. White count 15.9. Hemoglobin 12.6. Platelets 581. Sodium 130. Potassium 3.5. Bicarb 28. BUN 11. Creatinine 0.66. Glucose 103. Objective - Vital Signs Vital signs: Vital Signs Temp 98.2 F 08/13/23 06:55 Pulse 91 08/13/23 08:14 Resp 17 08/13/23 08:14 BP 137/72 08/13/23 06:55 Pulse Ox 93 L 08/13/23 06:55 FiO2 Intake & Output 08/12/23 08/13/23 08/13/23 18:59 06:59 18:59 Output Total 500 Balance -500 Output: Urine 500 Other: Voiding Method Urinal Urinal Urinal # Voids 2 - Exam General: Alert, oriented, thin 72-year-old male, remains on room air sitting up in bed. Head exam was generally normal. There was no scleral icterus or corneal arcus. Mucous membranes were moist. Derm: warm, dry Eyes: EOMI, no lid lag, anicteric sclera, pupils equal round reactive to light ENT: Nose and ears atraumatic, mucous membranes dry. Nasogastric tube removed Cardiovascular: S1S2 reg, n soft systolic ejection murmur over the left apex. The patient also has a scar of previous thoracotomy Lungs: Diminished in the bilateral bases, crackles left greater than right. Abdominal: Soft, tender to palpation diffusely, no guarding, scar of previous abdominal surgeries noted. No rebound tenderness. Ext: no gross muscle atrophy, no contractures Neuro: CN II-XII grossly intact, No focal neuro deficits Psych: Alert, oriented, appropriate affect - Labs CBC & Chem 7: 08/13/23 05:38 08/13/23 05:38 Labs: Abnormal Lab Results - Last 24 Hours (Table) 08/13/23 08/13/23 Range/Units 05:38 05:38 WBC 15.9 H (3.8-10.6) k/uL Hgb 12.6 L (13.0-17.5) gm/dL Plt Count 581 H (150-450) k/uL Sodium 130 L (137-145) mmol/L Chloride 97 L (98-107) mmol/L Glucose 103 H (74-99) mg/dL Calcium 8.1 L (8.4-10.2) mg/dL Microbiology - Last 24 Hours (Table) 08/10/23 10:00 Gram Stain - Preliminary Pleural Fluid Body Fluid Culture - Preliminary Assessment and Plan Assessment: Acute hypotension/shock, a combination of hypovolemic and septic in nature, recovered and the patient is currently normotensive and the procalcitonin level is on the decline Abdominal discomfort with nausea and vomiting. CT scan of the abdomen reveals dilated small bowel loops extending towards the ileum. Small bowel obstruction should be considered. Ileus could be considered. Zone of transition not clearly identified. Nasogastric tube placed. Follow-up CT scan from 08/10/2023 shows no significant change Bilateral pleural effusions, right-sided thoracentesis August 10, 2023 with 1.2 L of straw-colored fluid removed, transudate, cytology pending. Left sided thoracentesis performed August 13, 2023 with 1 L of straw-colored fluid removed. Not sent for analysis. CHF with impaired ejection fraction of 35 to 40% with chronic systolic heart failure based on echocardiogram in 2019, the patient has an AICD in place, repeat echocardiogram showed an ejection fraction of around 30 to 35% along with global hypokinesis Coronary artery disease previous bypass surgery and the patient's most recent cardiac catheterization is from May 2021 and this indicated patent GOMEZ to LAD and patent SVG to PDA and occluded SVG to OM1, OM 2 and diagonal. The [place] coronary arteries were also disease. Medical management was offered to this patient. Hyperlipidemia Hypothyroidism History of Hodgkin's lymphoma with a previous splenectomy followed by chemoradiation therapy back in History of prostate cancer, UA is negative at this point in time, the patient has been treated with therapy in the past Hyponatremia, likely hypovolemic in nature secondary to diarrhea, sodium level is improving Plan: The patient was seen and evaluated Chest x-ray, labs and medications reviewed Left sided thoracentesis performed today Follow-up chest x-ray shows no pneumothorax Currently stable and on room air Continued on Zosyn, fluconazole We will continue to follow I have personally seen and examined the patient, performed the documentation and the assessment and plan as written. Number of minutes spent on the visit: 10.
[2023-08-13 21:23] LABS: Glucose,Whole Blood 125 mg/dL (70-110)
--- NOTE | 2023-08-13 22:57 | P.PN ---
Subjective Progress Note Date: 08/13/23 Principal diagnosis: Reason for follow-up is sepsis, ileus and possible aspiration pneumonia Patient is a 80-year-old male with a past medical history significant for atrial fibrillation hypertension hyperlipidemia CT did have history of Hodgkin lymphoma and prostate cancer splenectomy as a part of staging for the Hodgkin lymphoma back in the 70s presenting to the ER for evaluation of abdominal pain and also have an episode of vomiting and apparently the patient did have diarrhea prior to coming to the hospital patient did have a CT abdominal pelvis concerning for left lower lobe airspace disease and there was also concerning for ileus with initial concern for sepsis secondary to abdominal source. On today's evaluation that is 08/13/2023,the patient denies any fever or any chills, patient is breathing comfortably on room air, the patient denies chest pain shortness of breath and no significant cough, patient abdominal pain has decreased intensity no nausea vomiting NG has been discontinued and did have a small bowel vomiting. The patient did have white count of 15.9, creatinine 0.66 Objective - Vital Signs Vital signs: Vital Signs Temp 98.2 F 08/13/23 06:55 Pulse 91 08/13/23 08:14 Resp 17 08/13/23 08:14 BP 137/72 08/13/23 06:55 Pulse Ox 93 L 08/13/23 06:55 FiO2 Intake & Output 08/12/23 08/13/23 08/13/23 18:59 06:59 18:59 Output Total 500 Balance -500 Output: Urine 500 Other: Voiding Method Urinal Urinal Urinal # Voids 2 - Exam GENERAL DESCRIPTION: An elderly male lying in bed in no distress RESPIRATORY SYSTEM: Unlabored breathing , decreased breath sounds at bases HEART: S1 S2 regular rate and rhythm , ABDOMEN: Soft , slightly tense EXTREMITIES: No edema feet - Labs CBC & Chem 7: 08/13/23 05:38 08/13/23 05:38 Labs: Abnormal Lab Results - Last 24 Hours (Table) 08/13/23 08/13/23 Range/Units 05:38 05:38 WBC 15.9 H (3.8-10.6) k/uL Hgb 12.6 L (13.0-17.5) gm/dL Plt Count 581 H (150-450) k/uL Sodium 130 L (137-145) mmol/L Chloride 97 L (98-107) mmol/L Glucose 103 H (74-99) mg/dL Calcium 8.1 L (8.4-10.2) mg/dL Microbiology - Last 24 Hours (Table) 08/10/23 10:00 Gram Stain - Preliminary Pleural Fluid Body Fluid Culture - Preliminary Assessment and Plan (1) Leukocytosis Current Visit: Yes Status: Acute Code(s): D72.829 - ELEVATED WHITE BLOOD CELL COUNT, UNSPECIFIED SNOMED Code(s): 750214361 (2) Pneumonia Current Visit: Yes Status: Acute Code(s): J18.9 - PNEUMONIA, UNSPECIFIED ORGANISM SNOMED Code(s): 332494915 Plan: 1patient presented hospital with sepsis/septic shock in this patient who did have a fever tachycardia hypotension requiring pressor support patient predominately have abdominal symptoms of pain and did have diarrhea with a recent diagnosis of colitis and initial concern for possible ischemic versus infectious colitis 2-CT abdominal pelvis also shows evidence of left lower lobe pneumonia and patient did have vomiting before coming to the hospital with question of possible aspiration pneumonia, patient also have evidence of effusion status post thoracocentesis fluid cultures will be followed and antibiotic adjusted if needed 3-patient did have bowel movement NG has been discontinued keeping in mind worsening of his white count patient considered to be high risk for supinated fungal infection we will continue Zosyn and Diflucan and see clinical response and watch his white count closely Dictation was produced using [employer] dictation software. please excuse any grammatical, word or spelling errors. Time with Patient: Less than 30
[2023-08-13] MEDS: PIPERACILLIN-TAZOBACTAM 3.375 GM in SODIUM CHLORIDE 0.9% 100 ML IVPB SCH (23:31)
[2023-08-14 05:52] LABS: Glucose,Whole Blood 115 mg/dL (70-110)
[2023-08-14 12:08] LABS: HCT 40.2 % (39.0-53.0); HGB 12.6 gm/dL (13.0-17.5); Hypochromasia Slight; MCH 28.8 pg (25.0-35.0); MCHC 31.4 g/dL (31.0-37.0); MCV 91.9 fL (80.0-100.0); Mean Platelet Volume 7.8; Platelet Count 623 k/uL (150-450); RBC 4.37 m/uL (4.30-5.90); RDW 14.6 % (11.5-15.5); WBC 14.7 k/uL (3.8-10.6)
[2023-08-14 12:20] LABS: African American GFR (CKD) >90 (>60 ml/min/1.73 sqM); Anion Gap 7 mmol/L; Blood Urea Nitrogen 10 mg/dL (9-20); Calcium 8.3 mg/dL (8.4-10.2); Carbon Dioxide 26 mmol/L (22-30); Chloride 100 mmol/L (98-107); Glucose 103 mg/dL (74-99); Magnesium 2.1 mg/dL (1.6-2.3); Non-African American GFR(CKD) >90 (>60 ml/min/1.73 sqM); Potassium 3.2 mmol/L (3.5-5.1); Sodium 133 mmol/L (137-145)
[2023-08-14 12:24] LABS: Glucose,Whole Blood 101 mg/dL (70-110)
--- NOTE | 2023-08-14 12:29 | P.PN ---
Subjective Progress Note Date: 08/14/23 Principal diagnosis: Reason for follow-up is sepsis, ileus and possible aspiration pneumonia Patient is a 80-year-old male with a past medical history significant for atrial fibrillation hypertension hyperlipidemia NH did have history of Hodgkin lymphoma and prostate cancer splenectomy as a part of staging for the Hodgkin lymphoma back in the 70s presenting to the ER for evaluation of abdominal pain and also have an episode of vomiting and apparently the patient did have diarrhea prior to coming to the hospital patient did have a CT abdominal pelvis concerning for left lower lobe airspace disease and there was also concerning for ileus with initial concern for sepsis secondary to abdominal source. On today's evaluation that is 08/14/2023,the patient remains to be afebrile, patient is on room air not requiring supplemental oxygen and denies any shortness of breath no chest pain did have occasional cough.Patient denies having any nausea or vomiting, abdominal pain here and there and no further bowel movement. Patient white count slightly up to 14.7, creatinine 0.70 Objective - Vital Signs Vital signs: Vital Signs Temp 98.9 F 08/14/23 07:54 Pulse 92 08/14/23 07:54 Resp 17 08/14/23 07:54 BP 111/70 08/14/23 07:54 Pulse Ox 95 08/14/23 07:54 FiO2 Intake & Output 08/13/23 08/14/23 08/14/23 18:59 06:59 18:59 Intake Total 180 Output Total 350 Balance -170 Intake: Oral 180 Output: Urine 350 Other: Voiding Method Urinal Urinal # Voids 3 2 # Bowel Movements 2 2 - Exam GENERAL DESCRIPTION: An elderly male lying in bed in no distress RESPIRATORY SYSTEM: Unlabored breathing , decreased breath sounds at bases HEART: S1 S2 regular rate and rhythm , ABDOMEN: Soft , slightly tense EXTREMITIES: No edema feet - Labs CBC & Chem 7: 08/14/23 11:33 08/14/23 11:33 Labs: Abnormal Lab Results - Last 24 Hours (Table) 08/13/23 08/14/23 08/14/23 Range/Units 21:20 05:49 11:33 WBC 14.7 H (3.8-10.6) k/uL Hgb 12.6 L (13.0-17.5) gm/dL Plt Count 623 H (150-450) k/uL Sodium (137-145) mmol/L Potassium (3.5-5.1) mmol/L Glucose (74-99) mg/dL POC Glucose (mg/dL) 125 H 115 H (70-110) mg/dL Calcium (8.4-10.2) mg/dL 08/14/23 Range/Units 11:33 WBC (3.8-10.6) k/uL Hgb (13.0-17.5) gm/dL Plt Count (150-450) k/uL Sodium 133 L (137-145) mmol/L Potassium 3.2 L (3.5-5.1) mmol/L Glucose 103 H (74-99) mg/dL POC Glucose (mg/dL) (70-110) mg/dL Calcium 8.3 L (8.4-10.2) mg/dL Microbiology - Last 24 Hours (Table) 08/10/23 10:00 Gram Stain - Preliminary Pleural Fluid Body Fluid Culture - Preliminary Assessment and Plan (1) Leukocytosis Current Visit: Yes Status: Acute Code(s): D72.829 - ELEVATED WHITE BLOOD CELL COUNT, UNSPECIFIED SNOMED Code(s): 191438871 (2) Pneumonia Current Visit: Yes Status: Acute Code(s): J18.9 - PNEUMONIA, UNSPECIFIED ORGANISM SNOMED Code(s): 714043586 Plan: 1patient presented hospital with sepsis/septic shock in this patient who did have a fever tachycardia hypotension requiring pressor support patient predominately have abdominal symptoms of pain and did have diarrhea with a recent diagnosis of colitis and initial concern for possible ischemic versus infectious colitis 2-CT abdominal pelvis also shows evidence of left lower lobe pneumonia and patient did have vomiting before coming to the hospital with question of possible aspiration pneumonia, patient also have evidence of effusion status post thoracocentesis fluid cultures will be followed and antibiotic adjusted if needed 3-patient is afebrile and the white count is slightly tracking down will be monitored closely continue with the Zosyn and Diflucan, and monitor clinical c ourse closely Dictation was produced using [employer] dictation software. please excuse any grammatical, word or spelling errors. Time with Patient: Less than 30
--- NOTE | 2023-08-14 12:43 | P.PN ---
Subjective Progress Note Date: 08/14/23 CHIEF COMPLAINT: Abdominal pain HISTORY OF PRESENT ILLNESS: Patient reports some mild abdominal discomfort after eating. He is currently on full liquids. He is having bowel movements. Has had no further nausea or vomiting. He is status post a left thoracentesis yesterday. Afebrile. WBC 15 down to 14.7 K 3.2 PHYSICAL EXAM: VITAL SIGNS: Reviewed. GENERAL: no acute distress. ABDOMEN: Mildly distended. NEUROLOGIC: awake and alert ASSESSMENT: 1. Small bowel obstruction versus ileus 2. Possible ischemic colitis on admission 3. Bilateral pleural effusions evaluated by pulmonary service. Status post right and left sided thoracentesis 4. History of splenectomy 5. Hypokalemia PLAN: -Continue full liquids -Encourage patient to ambulate and increase activity level -Replace potassium Physician [employer] Programmer Analyst note has been reviewed by physician. Signing provider agrees with the documented findings, assessment, and plan of care. Report Objective - Vital Signs Vital signs: Vital Signs Temp 98.9 F 08/14/23 07:54 Pulse 92 08/14/23 07:54 Resp 17 08/14/23 07:54 BP 111/70 08/14/23 07:54 Pulse Ox 95 08/14/23 07:54 FiO2 Intake & Output 08/13/23 08/14/23 08/14/23 18:59 06:59 18:59 Intake Total 180 Output Total 350 Balance -170 Intake: Oral 180 Output: Urine 350 Other: Voiding Method Urinal Urinal # Voids 3 2 # Bowel Movements 2 2 - Labs CBC & Chem 7: 08/14/23 11:33 08/14/23 11:33 Labs: Abnormal Lab Results - Last 24 Hours (Table) 08/13/23 08/14/23 08/14/23 Range/Units 21:20 05:49 11:33 WBC 14.7 H (3.8-10.6) k/uL Hgb 12.6 L (13.0-17.5) gm/dL Plt Count 623 H (150-450) k/uL Sodium (137-145) mmol/L Potassium (3.5-5.1) mmol/L Glucose (74-99) mg/dL POC Glucose (mg/dL) 125 H 115 H (70-110) mg/dL Calcium (8.4-10.2) mg/dL 08/14/23 Range/Units 11:33 WBC (3.8-10.6) k/uL Hgb (13.0-17.5) gm/dL Plt Count (150-450) k/uL Sodium 133 L (137-145) mmol/L Potassium 3.2 L (3.5-5.1) mmol/L Glucose 103 H (74-99) mg/dL POC Glucose (mg/dL) (70-110) mg/dL Calcium 8.3 L (8.4-10.2) mg/dL Microbiology - Last 24 Hours (Table) 08/10/23 10:00 Gram Stain - Preliminary Pleural Fluid Body Fluid Culture - Preliminary
--- NOTE | 2023-08-14 13:00 | P.PN ---
Subjective Progress Note Date: 08/14/23 72-year-old male with a history of Hodgkin's lymphoma status post chemo radiation and splenectomy in the 1970s, atrial fibrillation, dyslipidemia, coronary artery disease with myocardial infarction and coronary artery bypass surgery, and prostate cancer who presented to the emergency department with complaints of abdominal pain. Laboratory analysis in the ER included CBC, CMP, CRP, lipase, and urinalysis which were remarkable for sodium of 127 and C-reactive protein of 17. Influenza A/B/RSV/COVID-19 PCR testing was negative. Initially on presentation patient had stable vital signs but was noted to have a fever of 101.2F. Slightly after presentation patient became hypotensive requiring 1.5 L of fluid resuscitation. He remained hypotensive and therefore was started on norepinephrine. Repeat CT abdomen pelvis obtained today demonstrates new left lower lobe airspace opacities, dilation of the small bowel loops with large amount of stool, cardiomegaly with right-sided pleural effusion and anasarca as well as heterogeneous enhancement of the liver consistent with congestive heart failure. He was started on vancomycin and Zosyn. Arrangements were made for admission to the ICU. He was seen by pulmonary, infectious disease, and general surgery. Antibiotics were optimized to Zosyn only. He underwent echocardiogram which showed an ejection fraction of 30 to 35% with severe global hypokinesis. His abdominal pain got worse on the morning of 08/08 and he started having vomiti ng. Repeat CT showed ileus versus small bowel obstruction and an NG tube was placed. 08/10 Patient was seen and examined. Feels slightly better than yesterday. Currently with NG tube to suction. CT AP done today shows continued SBO. CBC WBC 12.74 Hg 11.7 Hct 35.8 Plt 538. BMP Cl 95, AG 12.6. 08/11 Patient was seen and examined. Feeling much better today. R thoracentesis performed yesterday, 1.2L removed. Lights criteria seem to indicate this is exudative in nature (protein ratio slightly > 0.5). He is maintained on Zosyn (D11). Still with significant output from NG tube. Surgery recommends continued management with NPO, NG tube to suction. CBC WBC 14 Hg 11.3 Hct 36 Plt 543. BMP Na 132, K 3.4, Cl 97, bicarb 31, Ca 8. 08/12 Patient was seen and examined. Reports feeling better. Some spastic abdominal pain intermittently. Pulmonary note reviewed, no plans for L thoracentesis as of now. He is maintained on Zosyn (D12). Still with significant output from NG tube. Surgery recommends continued management with NPO, NG tube to suction. Pleural fluid cultures negative so far. CBC shows WBC 13.9 Hg 12 Hct 38.3 Plt 537. BMP Na 131, Ca 8.1. 08/13 Patient was seen and examined. He reports increased work of breathing today. He is maintained on Zosyn (D13). Surgery note reviewed, DC NG tube and s tart FLD. CBC shows WBC 15.9 Hg 12.6 Plt 581. BMP Na 130, Cl 97, Ca 8.1, glu 103. I will switch his IVF from D5 1/2 NS to D5 NS at 50 cc/hr. 08/14 Patient was seen and examined. Tolerating FLD well. Abdominal pain well controlled. CXR done yesterday showed persistent L sided pleural effusion. Thoracentesis performed on 08/13 with 1L fluid drained from the left lung. He is maintained on Zosyn (D14). Fluconazole was started by ID on 08/13 for concerns of superimposed fungal infection. CBC WBC 14.7 Hg 12.6 Plt 623. BMP Na 133, K 3.2, glu 103, Ca 8.3. Mag 2.1. Vital signs reviewed General: Nontoxic, no distress, appears at stated age Cardiovascular: S1S2 reg, no murmur Lungs: Decreased be b/l, no rales, no accessory muscle use Abdominal: Soft, +tender to palpation diffusely, no guarding Ext: No gross muscle atrophy, no edema b/l lower extremities, no contractures Neuro: no focal neuro deficits Psych: Alert, oriented, appropriate affect Based on my assessment of this patient, this patient meets a high complexity level of care. Patient has an acute diagnosis of SBO complicated with PNA and bilateral pleural effusions that poses a threat to life or bodily function. Ileus and probable ischemic colitis: FLD and advance. Surgery on board. Hyokalemia: KCl 40 meq PO x 1 today. Pneumonia: Zosyn 3.375 g every 8 hours IV piggyback (D14). Fluconazole 200 mg IV QD (D2). ID and Pulmonary on board. Bilateral pleural effusion: Underwent right sided thoracentesis 1.2 L removed, left sided thoracentesis 1 L removed. Cultures negative so far. Compensated Systolic CHF, EF 30 to 35%: Spironolactone 50 mg PO QD, lisinopril 5 mg PO QHS, Metoprolol 12.5 mg PO BID. Thrombocytosis: Reactive. Chronic: Atrial fibrillation, CAD with history of [place] status post CABG, Hypothyroidism, Dyslipidemia Resolved: Septic shock CODE STATUS: FULL CODE DVT Prophylaxis: Lovenox GI Prophylaxis: Designated medical POA if patient is not able to make medical decisions for themselves: I have reviewed the following product management consultant notes: Surgery, ID, Pulmonary note I have reviewed the results of the following tests: CBC, BMP. I have ordered the following tests: CBC, BMP. I have discussed the care of this patient with the following independent historian: I have independently interpreted the following test below: I have discussed the management of this patient with the following physician: Objective - Vital Signs Vital signs: Vital Signs Temp 98.9 F 08/14/23 07:54 Pulse 92 08/14/23 07:54 Resp 17 08/14/23 07:54 BP 111/70 08/14/23 07:54 Pulse Ox 95 08/14/23 07:54 FiO2 Intake & Output 08/13/23 08/14/23 08/14/23 18:59 06:59 18:59 Intake Total 180 Output Total 350 Balance -170 Intake: Oral 180 Output: Urine 350 Other: Voiding Method Urinal Urinal # Voids 3 2 # Bowel Movements 2 2 - Labs CBC & Chem 7: 08/14/23 11:33 08/14/23 11:33 Labs: Abnormal Lab Results - Last 24 Hours (Table) 08/13/23 08/14/23 08/14/23 Range/Units 21:20 05:49 11:33 WBC 14.7 H (3.8-10.6) k/uL Hgb 12.6 L (13.0-17.5) gm/dL Plt Count 623 H (150-450) k/uL Sodium (137-145) mmol/L Potassium (3.5-5.1) mmol/L Glucose (74-99) mg/dL POC Glucose (mg/dL) 125 H 115 H (70-110) mg/dL Calcium (8.4-10.2) mg/dL 08/14/23 Range/Units 11:33 WBC (3.8-10.6) k/uL Hgb (13.0-17.5) gm/dL Plt Count (150-450) k/uL Sodium 133 L (137-145) mmol/L Potassium 3.2 L (3.5-5.1) mmol/L Glucose 103 H (74-99) mg/dL POC Glucose (mg/dL) (70-110) mg/dL Calcium 8.3 L (8.4-10.2) mg/dL Microbiology - Last 24 Hours (Table) 08/10/23 10:00 Gram Stain - Preliminary Pleural Fluid Body Fluid Culture - Preliminary
[2023-08-14] MEDS: POTASSIUM CHLORIDE ER 20 MEQ TAB.ER PO STA (13:06)
[2023-08-14] MEDS ORDERED: Potassium Replacement Protocol 1 EACH MISC MISCELLANE PRN (13:32)
--- NOTE | 2023-08-14 13:40 | P.PN ---
Subjective Progress Note Date: 08/14/23 The patient is seen today August 07, 2023 and follow-up on the regular medical floor. He is currently sitting up in the bedside. Awake and alert in no acute distress. He is maintaining good O2 saturations in the 90s on room air. He is a febrile. Hemodynamically stable. He has a PICC line in place and is receiving TPN for nutritional support. Blood cultures are no growth. Urine culture revealed no growth. White count 11.6. Hemoglobin 11.5. Sodium 133. Potassium 4.0. Bicarb 22. BUN 10. Creatinine 0.7. Glucose 90. He remains on Lovenox for DVT prophylaxis. Continued on antibiotics in the form of Zosyn. The patient is seen today August 08, 2023 in follow-up on the regular medical floor. He is awake and alert in no acute distress. He is having some abdominal discomfort this morning. No worsening shortness of breath, cough or congestion. Maintaining good O2 saturations in the 90s on room air. He has normal staying at KVO. He has been afebrile. Hemodynamically stable. CT scan of the abdomen and pelvis revealed dilated small bowel loops extending towards the ileum. Small bowel obstruction should be considered. Ileus could be considered. Zone of transition not clearly identified. Small amount of ascites adjacent to the liver. Moderate bilateral pleural effusions with adjacent atelectasis. White count 11.7. Hemoglobin 11.9. Platelets 416. The patient is seen today August 09, 2023 in follow-up on the regular medical floor. He is a bit lethargic today. He is arousable. He is somewhat agitated. He told us to get out of the room. He was refusing to sit up for possible thoracentesis today. Ultrasound of the chest does reveal a 11 cm pocket on the right and a 10 m 10 cm pocket on the left. He is stable and maintaining O2 saturations in the 90s on room air. Blood cultures revealed no growth. Urine culture revealed no growth. White count 12.7. Hemoglobin 11.9. Platelets 510. Sodium 136. Potassium 4.2. Bicarb 24. BUN 13. Creatinine 1.0. Glucose 90. He is continued on D5 and a half normal saline at 50 MLS per hour. Lovenox for DVT prophylaxis. Remains on antibiotics in the form of Zosyn. The patient is seen today August 10, 2023 in follow-up on the regular medical floor. He is more awake and alert today. Maintaining O2 saturations in the 90s on room air. Nasogastric tube remains in place. White count 12.7. Hemoglobin 11.7. Platelets 538. Sodium 137. Potassium 3.7. Bicarb 29. BUN 13. Creatinine 0.9. Glucose 87. Continued on antibiotics in the form of Zosyn. Lovenox for DVT prophylaxis. The patient was agreeable to thoracentesis today. He had 1.2 L removed from his right pleural cavity. Cytology and fluid analysis pending. The patient is seen today August 11, 2023 in follow-up on the regular medical floor. He is sitting up in bed. Awake and alert in no acute distress. He denies any worsening shortness of breath, cough or congestion. He is maintaining good O2 saturations in the 90s on room air. He is afebrile. Hemodynamically stable. Nasogastric tube remains in place. Denies any s ignificant nausea. No abdominal pain. Follow-up CT scan of the abdomen continues to show no significant change in the appearance of the small bowel obstruction. Contrast is seen within the small bowel and does appear to have passed some into the colon. This may relate to a partial small bowel ob struction versus ileus. Left pleural effusion remains. Pleural fluid analysis from the right thoracentesis yesterday reveals transudate with a protein of 2.7 and an LDH of 146. No plans for thoracentesis of the left chest today. Remains on antibiotics in the form of Zosyn. Lovenox for DVT prophylaxis. The patient is seen today August 12, 2023 in follow-up on the regular medical floor. He is awake and alert in no acute distress. Sitting up in bed. Denies any worsening shortness of breath, cough or congestion. Nasogastric tube remains in place. He is maintaining O2 saturations in the 90s on room air. He remains on Lovenox for DVT prophylaxis. Remains on antibiotics in the form of Zosyn. White count 13.9. Hemoglobin 12.0. Platelets 537. Sodium 131. Pot assium 3.8. Bicarb 26. BUN 13. Creatinine 0.69. Glucose 93. The patient is seen today August 13, 2023 in follow-up on the regular medical floor. He is currently sitting up in bed. Awake and alert in no acute distress. Maintaining good O2 saturations in the 90s on room air. His nasogastric tube has been removed. He has D5.9 normal saline at 50 mL/h. Thoracentesis performed on the left chest today with 1.0 L of straw-colored fluid removed. Not sent for analysis. He is continued on fluconazole and Zosyn. Lovenox for DVT prophylaxis. White count 15.9. Hemoglobin 12.6. Platelets 581. Sodium 130. Potassium 3.5. Bicarb 28. BUN 11. Creatinine 0.66. Glucose 103. The patient is seen today August 14, 2023 in follow-up on the regular medical floor. He is sitting up in bed awake and alert in no acute distress. Maintaining good O2 saturations in the 90s on room air. He has normal staying at 50 MLS per hour. He is continued on antibiotics in the form of Zosyn and fluconazole. Pleural fluid cultures revealed no growth. White count 14.7. Hemoglobin 12.6. Sodium 133. Potassium 3.2. Bicarb 26. BUN 10. Creatinine 0.70. Glucose 103. He remains on Lovenox for DVT prophylaxis. Objective - Vital Signs Vital signs: Vital Signs Temp 98.9 F 08/14/23 07:54 Pulse 92 08/14/23 07:54 Resp 17 08/14/23 07:54 BP 111/70 08/14/23 07:54 Pulse Ox 95 08/14/23 07:54 FiO2 Intake & Output 08/13/23 08/14/23 08/14/23 18:59 06:59 18:59 Intake Total 180 Output Total 350 Balance -170 Intake: Oral 180 Output: Urine 350 Other: Voiding Method Urinal Urinal # Voids 3 2 # Bowel Movements 2 2 - Exam General: Alert, oriented, thin 72-year-old male, remains on room air, resting comfortably in bed. Head exam was generally normal. There was no scleral icterus or corneal arcus. Mucous membranes were moist. Derm: warm, dry Eyes: EOMI, no lid lag, anicteric sclera, pupils equal round reactive to light ENT: Nose and ears atraumatic, mucous membranes dry. Nasogastric tube removed Cardiovascular: S1S2 reg, n soft systolic ejection murmur over the left apex. The patient also has a scar of previous thoracotomy Lungs: Diminished in the bilateral bases, crackles left greater than right. Abdominal: Soft, tender to palpation diffusely, no guarding, scar of previous abdominal surgeries noted. No rebound tenderness. Ext: no gross muscle atrophy, no contractures Neuro: CN II-XII grossly intact, No focal neuro deficits Psych: Alert, oriented, appropriate affect - Labs CBC & Chem 7: 08/14/23 11:33 08/14/23 11:33 Labs: Abnormal Lab Results - Last 24 Hours (Table) 08/13/23 08/14/23 08/14/23 Range/Units 21:20 05:49 11:33 WBC 14.7 H (3.8-10.6) k/uL Hgb 12.6 L (13.0-17.5) gm/dL Plt Count 623 H (150-450) k/uL Sodium (137-145) mmol/L Potassium (3.5-5.1) mmol/L Glucose (74-99) mg/dL POC Glucose (mg/dL) 125 H 115 H (70-110) mg/dL Calcium (8.4-10.2) mg/dL 08/14/23 Range/Units 11:33 WBC (3.8-10.6) k/uL Hgb (13.0-17.5) gm/dL Plt Count (150-450) k/uL Sodium 133 L (137-145) mmol/L Potassium 3.2 L (3.5-5.1) mmol/L Glucose 103 H (74-99) mg/dL POC Glucose (mg/dL) (70-110) mg/dL Calcium 8.3 L (8.4-10.2) mg/dL Microbiology - Last 24 Hours (Table) 08/10/23 10:00 Gram Stain - Preliminary Pleural Fluid Body Fluid Culture - Preliminary Assessment and Plan Assessment: Acute hypotension/shock, a combination of hypovolemic and septic in nature, recovered and the patient is currently normotensive and the procalcitonin level is on the decline Abdominal discomfort with nausea and vomiting. CT scan of the abdomen reveals dilated small bowel loops extending towards the ileum. Small bowel obstruction should be considered. Ileus could be considered. Zone of transition not clearly identified. Nasogastric tube placed. Follow-up CT scan from 08/10/2023 shows no significant change Bilateral pleural effusions, right-sided thoracentesis August 10, 2023 with 1.2 L of straw-colored fluid removed, transudate, cytology pending. Left sided thoracentesis performed August 13, 2023 with 1 L of straw-colored fluid removed. Not sent for analysis. CHF with impaired ejection fraction of 35 to 40% with chronic systolic heart failure based on echocardiogram in 2019, the patient has an AICD in place, repeat echocardiogram showed an ejection fraction of around 30 to 35% along with global hypokinesis Coronary artery disease previous bypass surgery and the patient's most recent cardiac catheterization is from May 2021 and this indicated patent GOMEZ to LAD and patent SVG to PDA and occluded SVG to OM1, OM 2 and diagonal. The [place] coronary arteries were also disease. Medical management was offered to this patient. Hyperlipidemia Hypothyroidism History of Hodgkin's lymphoma with a previous splenectomy followed by chemoradiation therapy back in History of prostate cancer, UA is negative at this point in time, the patient has been treated with therapy in the past Hyponatremia, likely hypovolemic in nature secondary to diarrhea, sodium level is improving Plan: The patient was seen and evaluated Labs and medications reviewed Currently stable and on room air Cleared for discharge from the pulmonary standpoint Plan is for home with home care at discharge I have personally seen and examined the patient, performed the documentation and the assessment and plan as written. Number of minutes spent on the visit: 10.
[2023-08-14] MEDS: POTASSIUM CHLORIDE 20 MEQ in WATER FOR INJECTION 1 100ML.BAG IVPB SCH (14:08)
[2023-08-14 16:48] LABS: Glucose,Whole Blood 143 mg/dL (70-110)
[2023-08-14 20:54] LABS: Glucose,Whole Blood 115 mg/dL (70-110)
[2023-08-15 05:45] LABS: Glucose,Whole Blood 95 mg/dL (70-110)
[2023-08-15 07:43] LABS: HCT 36.9 % (39.0-53.0); HGB 11.8 gm/dL (13.0-17.5); Hypochromasia Slight; MCH 29.3 pg (25.0-35.0); MCHC 32.1 g/dL (31.0-37.0); MCV 91.4 fL (80.0-100.0); Mean Platelet Volume 8.1; Platelet Count 634 k/uL (150-450); RBC 4.04 m/uL (4.30-5.90); RDW 14.9 % (11.5-15.5); WBC 12.1 k/uL (3.8-10.6)
[2023-08-15 07:55] LABS: African American GFR (CKD) >90 (>60 ml/min/1.73 sqM); Anion Gap 7 mmol/L; Blood Urea Nitrogen 9 mg/dL (9-20); Calcium 8.1 mg/dL (8.4-10.2); Carbon Dioxide 25 mmol/L (22-30); Chloride 102 mmol/L (98-107); Glucose 94 mg/dL (74-99); Magnesium 2.1 mg/dL (1.6-2.3); Non-African American GFR(CKD) >90 (>60 ml/min/1.73 sqM); Potassium 3.4 mmol/L (3.5-5.1); Sodium 134 mmol/L (137-145)
--- NOTE | 2023-08-15 11:33 | P.PN ---
Subjective Progress Note Date: 08/15/23 Principal diagnosis: Sepsis. The patient is seen today August 07, 2023 and follow-up on the regular medical floor. He is currently sitting up in the bedside. Awake and alert in no acute distress. He is maintaining good O2 saturations in the 90s on room air. He is a febrile. Hemodynamically stable. He has a PICC line in place and is receiving TPN for nutritional support. Blood cultures are no growth. Urine culture revealed no growth. White count 11.6. Hemoglobin 11.5. Sodium 133. Potassium 4.0. Bicarb 22. BUN 10. Creatinine 0.7. Glucose 90. He remains on Lovenox for DVT prophylaxis. Continued on antibiotics in the form of Zosyn. The patient is seen today August 08, 2023 in follow-up on the regular medical floor. He is awake and alert in no acute distress. He is having some abdominal discomfort this morning. No worsening shortness of breath, cough or congestion. Maintaining good O2 saturations in the 90s on room air. He has normal staying at KVO. He has been afebrile. Hemodynamically stable. CT scan of the abdomen and pelvis revealed dilated small bowel loops extending towards the ileum. Small bowel obstruction should be considered. Ileus could be considered. Zone of transition not clearly identified. Small amount of ascites adjacent to the liver. Moderate bilateral pleural effusions with adjacent atelectasis. White count 11.7. Hemoglobin 11.9. Platelets 416. The patient is seen today August 09, 2023 in follow-up on the regular medical floor. He is a bit lethargic today. He is arousable. He is somewhat agitated. He told us to get out of the room. He was refusing to sit up for possible thoracentesis today. Ultrasound of the chest does reveal a 11 cm pocket on the right and a 10 m 10 cm pocket on the left. He is stable and maintaining O2 saturations in the 90s on room air. Blood cultures revealed no growth. Urine culture revealed no growth. White count 12.7. Hemoglobin 11.9. Platelets 510. Sodium 136. Potassium 4.2. Bicarb 24. BUN 13. Creatinine 1.0. Glucose 90. He is continued on D5 and a half normal saline at 50 MLS per hour. Lovenox for DVT prophylaxis. Remains on antibiotics in the form of Zosyn. The patient is seen today August 10, 2023 in follow-up on the regular medical floor. He is more awake and alert today. Maintaining O2 saturations in the 90s on room air. Nasogastric tube remains in place. White count 12.7. Hemoglobin 11.7. Platelets 538. Sodium 137. Potassium 3.7. Bicarb 29. BUN 13. Creatinine 0.9. Glucose 87. Continued on antibiotics in the form of Zosyn. Lovenox for DVT prophylaxis. The patient was agreeable to thoracentesis today. He had 1.2 L removed from his right pleural cavity. Cytology and fluid analysis pending. The patient is seen today August 11, 2023 in follow-up on the regular medical floor. He is sitting up in bed. Awake and alert in no acute distress. He denies any worsening shortness of breath, cough or congestion. He is maintaining good O2 saturations in the 90s on room air. He is afebrile. Hemodynamically stable. Nasogastric tube remains in place. Denies any significant nausea. No abdominal pain. Follow-up CT scan of the abdomen continues to show no significant change in the appearance of the small bowel obstruction. Contrast is seen within the small bowel and does appear to have passed some into the colon. This may relate to a partial small bowel obstruction versus ileus. Left pleural effusion remains. Pleural fluid analysis from the right thoracentesis yesterday reveals transudate with a protein of 2.7 and an LDH of 146. No plans for thoracentesis of the left chest today. Remains on antibiotics in the form of Zosyn. Lovenox for DVT prophylaxis. The patient is seen today August 12, 2023 in follow-up on the regular medical floor. He is awake and alert in no acute distress. Sitting up in bed. Denies any worsening shortness of breath, cough or congestion. Nasogastric tube remains in place. He is maintaining O2 saturations in the 90s on room air. He remains on Lovenox for DVT prophylaxis. Remains on antibiotics in the form of Zosyn. White count 13.9. Hemoglobin 12.0. Platelets 537. Sodium 131. Potassium 3.8. Bicarb 26. BUN 13. Creatinine 0.69. Glucose 93. The patient is seen today August 13, 2023 in follow-up on the regular medical floor. He is currently sitting up in bed. Awake and alert in no acute distress. Maintaining good O2 saturations in the 90s on room air. His nasogastric tube has been removed. He has D5.9 normal saline at 50 mL/h. Thoracentesis performed on the left chest today with 1.0 L of straw-colored flui d removed. Not sent for analysis. He is continued on fluconazole and Zosyn. Lovenox for DVT prophylaxis. White count 15.9. Hemoglobin 12.6. Platelets 581. Sodium 130. Potassium 3.5. Bicarb 28. BUN 11. Creatinine 0.66. Glucose 103. The patient is seen today August 14, 2023 in follow-up on the regular medical floor. He is sitting up in bed awake and alert in no acute distress. Maint aining good O2 saturations in the 90s on room air. He has normal staying at 50 MLS per hour. He is continued on antibiotics in the form of Zosyn and fluconazole. Pleural fluid cultures revealed no growth. White count 14.7. Hemoglobin 12.6. Sodium 133. Potassium 3.2. Bicarb 26. BUN 10. Creatinine 0.70. Glucose 103. He remains on Lovenox for DVT prophylaxis. Progress note dated August 15, 2023. 72-year-old male seen today in room 453. Currently, the patient is not on any oxygen. He is getting Zosyn. In addition, he is getting saline at 10 cc an hour, and dextrose with half-normal saline at 50 cc an hour. He seems relatively comfortable, and he states that his breathing is stable. Current laboratory includes a white count 12.1, hemoglobin 11.8, hematocrit 36.9, and platelet count 634,000. Sodium 134, potassium 3.4, chlorides 102, CO2 25, BUN 9, creatinine 0.68. Calcium is 8.1. Cultures are thus far negative. No recent chest x-rays to review. Objective - Vital Signs Vital signs: Vital Signs Temp 97.5 F L 08/15/23 07:03 Pulse 88 08/15/23 07:03 Resp 18 08/15/23 07:03 BP 113/66 08/15/23 07:03 Pulse Ox 97 08/15/23 07:03 FiO2 Intake & Output 08/14/23 08/15/23 08/15/23 18:59 06:59 18:59 Intake Total 420 980 Output Total 750 300 Balance -330 980 -300 Weight 74.1 kg Intake: IV 500 Sodium Chloride 0.9% 1, 500 000 ml @ 50 mls/hr IV . Q20H [facility] Rx#:[id number] Oral 420 480 Output: Urine 750 300 Other: Voiding Method Toilet # Voids 1 # Bowel Movements 1 1 - Exam No acute distress, oriented 3. Currently on room air. HEENT examination is grossly unremarkable. Mucous membranes are moist. No oral lesions. Neck supple. Full range of motion. No adenopathy thyromegaly or neck vein distention. Cardiovascular examination reveals regular rhythm rate. S1-S2 normal. No S3 or S4. No discernible murmur noted. Heart rate is 88 bpm. Lungs reveal clear breath sounds. Breath sounds are equal bilaterally. No adventitious lung sounds including wheezes rhonchi or crackles. Room air saturation is 97%. Abdomen soft bowel sounds are heard. No masses or tenderness. Extremities are intact. No cyanosis clubbing or edema. Skin is without rash or lesion. Neurologic examination is brief but nonfocal. - Labs CBC & Chem 7: 08/15/23 06:10 08/15/23 06:10 Labs: Abnormal Lab Results - Last 24 Hours (Table) 08/14/23 08/14/23 08/14/23 Range/Units 11:33 11:33 16:47 WBC 14.7 H (3.8-10.6) k/uL RBC (4.30-5.90) m/uL Hgb 12.6 L (13.0-17.5) gm/dL Hct (39.0-53.0) % Plt Count 623 H (150-450) k/uL Sodium 133 L (137-145) mmol/L Potassium 3.2 L (3.5-5.1) mmol/L Glucose 103 H (74-99) mg/dL POC Glucose (mg/dL) 143 H (70-110) mg/dL Calcium 8.3 L (8.4-10.2) mg/dL 08/14/23 08/15/23 08/15/23 Range/Units 20:52 06:10 06:10 WBC 12.1 H (3.8-10.6) k/uL RBC 4.04 L (4.30-5.90) m/uL Hgb 11.8 L (13.0-17.5) gm/dL Hct 36.9 L (39.0-53.0) % Plt Count 634 H (150-450) k/uL Sodium 134 L (137-145) mmol/L Potassium 3.4 L (3.5-5.1) mmol/L Glucose (74-99) mg/dL POC Glucose (mg/dL) 115 H (70-110) mg/dL Calcium 8.1 L (8.4-10.2) mg/dL Microbiology - Last 24 Hours (Table) 08/10/23 10:00 Gram Stain - Final Pleural Fluid Body Fluid Culture - Final Assessment and Plan Assessment: Acute hypotension/shock, a combination of hypovolemic and septic in nature, recovered and the patient is currently normotensive and the procalcitonin level is on the decline. Abdominal discomfort with nausea and vomiting. CT scan of the abdomen reveals dilated small bowel loops extending towards the ileum. Small bowel obstruction should be considered. Ileus could be considered. Zone of transition not clearly identified. Nasogastric tube placed. Follow-up CT scan from 08/10/2023 shows no significant change. Bilateral pleural effusions, right-sided thoracentesis August 10, 2023 with 1.2 L of straw-colored fluid removed, transudate, cytology pending. Left sided thoracentesis performed August 13, 2023 with 1 L of straw-colored fluid removed. CHF with impaired ejection fraction of 35 to 40% with chronic systolic heart failure based on echocardiogram in 2019, the patient has an AICD in place, repeat echocardiogram showed an ejection fraction of around 30 to 35% along with global hypokinesis. Coronary artery disease previous bypass surgery and the patient's most recent cardiac catheterization is from May 2021 and this indicated patent GOMEZ to LAD and patent SVG to PDA and occluded SVG to OM1, OM 2 and diagonal. The king salmon coronary arteries were also disease. Medical management was offered to this patient. Hyperlipidemia. Hypothyroidism. History of Hodgkin's lymphoma with a previous splenectomy followed by chemoradiation therapy back in . History of prostate cancer. Hyponatremia, likely hypovolemic in nature secondary to diarrhea. Plan: Plan dated August 15, 2023. The is seen today in room 453. He remains on room air. Labs, x-rays, and medications are all reviewed. The patient continues on Zosyn. He is also getting saline, at 10 cc an hour. His other IV is dextrose with half-normal saline at 50 cc an hour. We will continue to follow make recommendations along the way. Prognosis is guarded. He is stable from the pulmonary standpoint, and has been on room air for a number of days. Labs, x-rays, and medications are reviewed. Prognosis is guarded. We will continue to follow the patient. Time with Patient: Less than 30
[2023-08-15 11:58] LABS: Glucose,Whole Blood 119 mg/dL (70-110)
[2023-08-15] MEDS ORDERED: POTASSIUM CHLORIDE ER 20 MEQ TAB.ER PO STA (13:40)
--- NOTE | 2023-08-15 13:42 | P.PN ---
Subjective Progress Note Date: 08/15/23 72-year-old male with a history of Hodgkin's lymphoma status post chemo radiation and splenectomy in the 1970s, atrial fibrillation, dyslipidemia, coronary artery disease with myocardial infarction and coronary artery bypass surgery, and prostate cancer who presented to the emergency department with complaints of abdominal pain. Laboratory analysis in the ER included CBC, CMP, CRP, lipase, and urinalysis which were remarkable for sodium of 127 and C-reactive protein of 17. Influenza A/B/RSV/COVID-19 PCR testing was negative. Initially on presentation patient had stable vital signs but was noted to have a fever of 101.2F. Slightly after presentation patient became hypotensive requiring 1.5 L of fluid resuscitation and levophed. Repeat CT AP showed new left lower lobe airspace opacities, dilation of the small bowel loops with large amount of stool, cardiomegaly with right-sided pleural effusion and anasarca as well as heterogeneous enhancement of the liver consistent with congestive heart failure. He was started on vancomycin and Zosyn. Arrangements were made for admission to the ICU. He was seen by pulmonary, infectious disease, and general surgery. Antibiotics were optimized to Zosyn only. He underwent echocardiogram which showed an ejection fraction of 30 to 35% with severe global hypokinesis. His abdominal pain got worse on the morning of 08/08 and he started having vomiting. Repeat CT showed ileus versus small bowel obstruction and an NG tube was placed. 08/10 Currently with NG tube to suction. CT AP done today shows continued SBO. 08/11 R thoracentesis performed yesterday, 1.2L removed. Transudative. He is maintained on Zosyn (D11). Still with significant output from NG tube. 08/12 He is maintained on Zosyn (D12). Still with significant output from NG tube. Pleural fluid cultures negative so far. 08/13 He is maintained on Zosyn (D13). Fluconazole was started by ID for concerns of superimposed fungal infection with persistent leukocytosis. NG tube discontinued and start FLD. Thoracentesis performed on 08/13 with 1L fluid drained from the left lung. 08/14 He is maintained on Zosyn (D14) and Fluconazole (D2). 08/15 Patient was seen and examined. He complains of left upper extremity swelling. Breathing improved. No nausea or vomiting. Tolerating FLD. Had a bowel movement this morning. Discussed with Kena SQUARE CUTTER, concerns for leukocytosis, continue monitoring on antibiotics. He has been doing well with PT and OT, denied from [place], plans to go home. CBC WBC 12.1 Hg 11.8 Hct 36.9 Plt 634. BMP Na 134, K 3.4, glu 119, Ca 8.1. Vital signs reviewed General: Nontoxic, no distress, appears at stated age Cardiovascular: S1S2 reg, no murmur Lungs: Decreased be b/l, no rales, no accessory muscle use Abdominal: Soft, +tender to palpation diffusely, no guarding Ext: No gross muscle atrophy, no edema b/l lower extremities, no contractures, LUE markedly swollen compared to RUE. Neuro: no focal neuro deficits Psych: Alert, oriented, appropriate affect Based on my assessment of this patient, this patient meets a moderate complexity level of care. Patient has an acute diagnosis of SBO complicated with PNA and bilateral pleural effusions that poses a threat to life or bodily function. Ileus and probable ischemic colitis: FLD and advance. Surgery on board. Left upper extremity: Obtain Venous duplex to rule out DVT. Hyokalemia: KCl 40 meq PO x 1 today. Pneumonia: Zosyn 3.375 g every 8 hours IV piggyback (D14). Fluconazole 200 mg IV QD (D2). ID and Pulmonary on board. Bilateral pleural effusion: Underwent right sided thoracentesis 1.2 L removed, left sided thoracentesis 1 L removed. Cultures negative so far. Compensated Systolic CHF, EF 30 to 35%: Spironolactone 50 mg PO QD, lisinopril 5 mg PO QHS, Metoprolol 12.5 mg PO BID. Thrombocytosis: Reactive. Chronic: Atrial fibrillation, CAD with history of HI status post CABG, Hypothyr oidism, Dyslipidemia Resolved: Septic shock CODE STATUS: FULL CODE DVT Prophylaxis: Lovenox GI Prophylaxis: Designated medical POA if patient is not able to make medical decisions for themselves: I have reviewed the following benefits sales consultant notes: Surgery, ID, Pulmonary note I have reviewed the results of the following tests: CBC, BMP. I have ordered the following tests: CBC, BMP. I have discussed the care of this patient with the following independent historian: I have independently interpreted the following test below: I have discussed the management of this patient with the following physician: Discussed with Kena SQUARE CUTTER. Objective - Vital Signs Vital signs: Vital Signs Temp 97.5 F L 08/15/23 07:03 Pulse 88 08/15/23 07:03 Resp 18 08/15/23 07:03 BP 113/66 08/15/23 07:03 Pulse Ox 97 08/15/23 12:56 FiO2 Intake & Output 08/14/23 08/15/23 08/15/23 18:59 06:59 18:59 Intake Total 420 980 Output Total 750 300 Balance -330 980 -300 Weight 74.1 kg Intake: IV 500 Sodium Chloride 0.9% 1, 500 000 ml @ 50 mls/hr IV . Q20H [facility] Rx#:[id number] Oral 420 480 Output: Urine 750 300 Other: Voiding Method Toilet # Voids 1 # Bowel Movements 1 1 - Labs CBC & Chem 7: 08/15/23 06:10 08/15/23 06:10 Labs: Abnormal Lab Results - Last 24 Hours (Table) 08/14/23 08/14/23 08/15/23 Range/Units 16:47 20:52 06:10 WBC 12.1 H (3.8-10.6) k/uL RBC 4.04 L (4.30-5.90) m/uL Hgb 11.8 L (13.0-17.5) gm/dL Hct 36.9 L (39.0-53.0) % Plt Count 634 H (150-450) k/uL Sodium (137-145) mmol/L Potassium (3.5-5.1) mmol/L POC Glucose (mg/dL) 143 H 115 H (70-110) mg/dL Calcium (8.4-10.2) mg/dL 08/15/23 08/15/23 Range/Units 06:10 11:56 WBC (3.8-10.6) k/uL RBC (4.30-5.90) m/uL Hgb (13.0-17.5) gm/dL Hct (39.0-53.0) % Plt Count (150-450) k/uL Sodium 134 L (137-145) mmol/L Potassium 3.4 L (3.5-5.1) mmol/L POC Glucose (mg/dL) 119 H (70-110) mg/dL Calcium 8.1 L (8.4-10.2) mg/dL Microbiology - Last 24 Hours (Table) 08/10/23 10:00 Gram Stain - Final Pleural Fluid Body Fluid Culture - Final
--- NOTE | 2023-08-15 15:01 | P.PN ---
Subjective Progress Note Date: 08/15/23 CHIEF COMPLAINT: Abdominal pain HISTORY OF PRESENT ILLNESS: Patient denies any abdominal pain. Denies any nausea or vomiting. He had a bowel movement this morning. Afebrile. WBC is down from 14.7-12.1 potassium 3.4 Patient seen and examined with Dr. Clay PHYSICAL EXAM: VITAL SIGNS: Reviewed. GENERAL: no acute distress. ABDOMEN: Soft. Nontender NEUROLOGIC: awake and alert ASSESSMENT: 1. Small bowel obstruction versus ileus 2. Possible ischemic colitis on admission 3. Bilateral pleural effusions evaluated by pulmonary service. Status post right and left sided thoracentesis 4. History of splenectomy 5. Hypokalemia PLAN: -Continue full liquid diet and advance as tolerated -Continue to correct potassium -Encourage patient to increase activity level Physician Materials Planning Analyst note has been reviewed by physician. Signing provider agrees with the documented findings, assessment, and plan of care. Report Objective - Vital Signs Vital signs: Vital Signs Temp 97.5 F L 08/15/23 07:03 Pulse 88 08/15/23 07:03 Resp 18 08/15/23 07:03 BP 113/66 08/15/23 07:03 Pulse Ox 97 08/15/23 12:56 FiO2 Intake & Output 08/14/23 08/15/23 08/15/23 18:59 06:59 18:59 Intake Total 420 980 Output Total 750 300 Balance -330 980 -300 Weight 74.1 kg Intake: IV 500 Sodium Chloride 0.9% 1, 500 000 ml @ 50 mls/hr IV . Q20H [facility] Rx#:[id number] Oral 420 480 Output: Urine 750 300 Other: Voiding Method Toilet # Voids 1 # Bowel Movements 1 1 - Labs CBC & Chem 7: 08/15/23 06:10 08/15/23 06:10 Labs: Abnormal Lab Results - Last 24 Hours (Table) 08/14/23 08/14/23 08/15/23 Range/Units 16:47 20:52 06:10 WBC 12.1 H (3.8-10.6) k/uL RBC 4.04 L (4.30-5.90) m/uL Hgb 11.8 L (13.0-17.5) gm/dL Hct 36.9 L (39.0-53.0) % Plt Count 634 H (150-450) k/uL Sodium (137-145) mmol/L Potassium (3.5-5.1) mmol/L POC Glucose (mg/dL) 143 H 115 H (70-110) mg/dL Calcium (8.4-10.2) mg/dL 08/15/23 08/15/23 Range/Units 06:10 11:56 WBC (3.8-10.6) k/uL RBC (4.30-5.90) m/uL Hgb (13.0-17.5) gm/dL Hct (39.0-53.0) % Plt Count (150-450) k/uL Sodium 134 L (137-145) mmol/L Potassium 3.4 L (3.5-5.1) mmol/L POC Glucose (mg/dL) 119 H (70-110) mg/dL Calcium 8.1 L (8.4-10.2) mg/dL Microbiology - Last 24 Hours (Table) 08/10/23 10:00 Acid Fast Bacilli Smear - Preliminary Pleural Fluid 08/10/23 10:00 Gram Stain - Final Pleural Fluid Body Fluid Culture - Final
--- NOTE | 2023-08-15 15:03 | US ---
EXAMINATION TYPE: US venous doppler duplex UE LT DATE OF EXAM: 08/15/2023 COMPARISON: NONE CLINICAL INDICATION: Male, 72 years old with history of swelling; swollen left arm x 1 week, no h/o d vt SIDE PERFORMED: Left Left Arm: Negative for DVT soft tissue edema. Cardiac lead is seen within the subclavian vein. IMPRESSION: Grayscale, color doppler, spectral doppler imaging performed of the deep veins of the upper extremiti es. There is normal flow, compressibility and vascular waveforms.
[2023-08-15] MEDS: POTASSIUM CHLORIDE 20 MEQ in WATER FOR INJECTION 1 100ML.BAG IVPB SCH (15:54)
[2023-08-15 16:41] LABS: Glucose,Whole Blood 133 mg/dL (70-110)
[2023-08-15 20:31] LABS: Glucose,Whole Blood 132 mg/dL (70-110)
--- NOTE | 2023-08-15 21:53 | P.PN ---
Subjective Progress Note Date: 08/15/23 Principal diagnosis: Reason for follow-up is sepsis, ileus and possible aspiration pneumonia Patient is a 80-year-old male with a past medical history significant for atrial fibrillation hypertension hyperlipidemia [place] did have history of Hodgkin lymphoma and prostate cancer splenectomy as a part of staging for the Hodgkin lymphoma back in the 70s presenting to the ER for evaluation of abdominal pain and also have an episode of vomiting and apparently the patient did have diarrhea prior to coming to the hospital patient did have a CT abdominal pelvis concerning for left lower lobe airspace disease and there was also concerning for ileus with initial concern for sepsis secondary to abdominal source. On today's evaluation that is 08/15/2023, the patient continues to be afebrile, the patient is on room air and breathing comfortably, The patient denies having any chest pain or cough, the patient denies having any vomiting did have some mild abdominal pain and mentioned did have a small bowel movement. Patient white count is down to 12.1 creatinine 0.68 Objective - Vital Signs Vital signs: Vital Signs Temp 97.8 F 08/15/23 20:14 Pulse 109 H 08/15/23 20:14 Resp 18 08/15/23 20:14 BP 148/96 08/15/23 20:14 Pulse Ox 97 08/15/23 20:14 FiO2 Intake & Output 08/15/23 08/15/23 08/16/23 06:59 18:59 06:59 Intake Total 980 Output Total 300 Balance 980 -300 Intake: IV 500 Sodium Chloride 0.9% 1, 500 000 ml @ 50 mls/hr IV . Q20H [facility] Rx#:[id number] Oral 480 Output: Urine 300 Other: Voiding Method Toilet # Voids 1 1 # Bowel Movements 1 1 - Exam GENERAL DESCRIPTION: An elderly male lying in bed in no distress RESPIRATORY SYSTEM: Unlabored breathing , decreased breath sounds at bases HEART: S1 S2 regular rate and rhythm , ABDOMEN: Soft , slightly tense EXTREMITIES: No edema feet - Labs CBC & Chem 7: 08/15/23 06:10 08/15/23 06:10 Labs: Abnormal Lab Results - Last 24 Hours (Table) 08/15/23 08/15/23 08/15/23 Range/Units 06:10 06:10 11:56 WBC 12.1 H (3.8-10.6) k/uL RBC 4.04 L (4.30-5.90) m/uL Hgb 11.8 L (13.0-17.5) gm/dL Hct 36.9 L (39.0-53.0) % Plt Count 634 H (150-450) k/uL Sodium 134 L (137-145) mmol/L Potassium 3.4 L (3.5-5.1) mmol/L POC Glucose (mg/dL) 119 H (70-110) mg/dL Calcium 8.1 L (8.4-10.2) mg/dL 08/15/23 08/15/23 Range/Units 16:39 20:30 WBC (3.8-10.6) k/uL RBC (4.30-5.90) m/uL Hgb (13.0-17.5) gm/dL Hct (39.0-53.0) % Plt Count (150-450) k/uL Sodium (137-145) mmol/L Potassium (3.5-5.1) mmol/L POC Glucose (mg/dL) 133 H 132 H (70-110) mg/dL Calcium (8.4-10.2) mg/dL Microbiology - Last 24 Hours (Table) 08/10/23 10:00 Acid Fast Bacilli Smear - Preliminary Pleural Fluid 08/10/23 10:00 Gram Stain - Final Pleural Fluid Body Fluid Culture - Final Assessment and Plan (1) Leukocytosis Current Visit: Yes Status: Acute Code(s): D72.829 - ELEVATED WHITE BLOOD CELL COUNT, UNSPECIFIED SNOMED Code(s): 521295388 (2) Pneumonia Current Visit: Yes Status: Acute Code(s): J18.9 - PNEUMONIA, UNSPECIFIED ORGANISM SNOMED Code(s): 169155329 Plan: 1patient presented hospital with sepsis/septic shock in this patient who did have a fever tachycardia hypotension requiring pressor support patient predominately have abdominal symptoms of pain and did have diarrhea with a recent diagnosis of colitis and initial concern for possible ischemic versus infectious colitis 2-CT abdominal pelvis also shows evidence of left lower lobe pneumonia and patient did have vomiting before coming to the hospital with question of possible aspiration pneumonia, patient also have evidence of effusion status pos t thoracocentesis fluid cultures will be followed and antibiotic adjusted if needed 3-patient is afebrile and the white count slowly trending down, patient to continue with the Zosyn and Diflucan, plan is for oral antibiotic once his oral intakes improves Dictation was produced using [employer] dictation software. please excuse any grammatical, word or spelling errors. Time with Patient: Less than 30
[2023-08-16 05:48] LABS: Glucose,Whole Blood 124 mg/dL (70-110)
[2023-08-16 09:01] LABS: HCT 35.8 % (39.0-53.0); HGB 11.4 gm/dL (13.0-17.5); Hypochromasia Slight; MCH 29.2 pg (25.0-35.0); MCV 91.3 fL (80.0-100.0); Mean Platelet Volume 8.3; Platelet Count 572 k/uL (150-450); RBC 3.92 m/uL (4.30-5.90); RDW 15.2 % (11.5-15.5); WBC 12.3 k/uL (3.8-10.6)
[2023-08-16] MEDS: FUROSEMIDE 10 MG/ML 4 ML VIAL IV SCH (09:30)
--- NOTE | 2023-08-16 10:05 | P.PN ---
Subjective Progress Note Date: 08/16/23 Patient is a 72-year-old male with a history of Hodgkin's lymphoma status post chemo radiation and splenectomy in the 1970s, atrial fibrillation, dyslipidemia, coronary artery disease with myocardial infarction and coronary artery bypass surgery, and prostate cancer who presented to the emergency department with complaints of abdominal pain. She had been seen in the ER on 07/[address] that showed possible colitis and at that time he was started on a course of amoxicillin, he then developed diarrhea and return to the ER on 07/28 where he was told to stop the amoxicillin. He represented today due to continued abdominal pain. Laboratory analysis in the ER included CBC, CMP, CRP, lipase, and urinalysis which were remarkable for sodium of 127 and C-reactive protein of 17. Influenza A/B/RSV/COVID-19 PCR testing was negative. Initially on presentation patient had stable vital signs but was noted to have a fever of 101.2. Slightly after presentation patient became hypotensive requiring 1.5 L of fluid resuscitation. He remained hypotensive and therefore was started on norep inephrine. Repeat CT abdomen pelvis obtained today demonstrates new left lower lobe airspace opacities, dilation of the small bowel loops with large amount of stool, cardiomegaly with right-sided pleural effusion and anasarca as well as heterogeneous enhancement of the liver consistent with congestive heart failure. Chest x-ray Confirmed left basilar infiltrate. He was started on vancomycin and Zosyn. Arrangements were made for admission to the ICU. He was seen by pulmonary, infectious disease, and general surgery. Antibiotics were optimized to Zosyn only. He underwent echocardiogram which showed an ejection fraction of 30 to 35% with severe global hypokinesis. Patient appeared slightly fluid overload on the morning of 08/05. He had been off of his diuretics since admission. He received 1 dose of IV Lasix and resumed on Aldactone with improvement. His abdominal pain got worse on the morning of 08/08 and he started having vomiting. Repeat CT showed ileus versus small bowel obstruction and an NG tube was placed. He was noted to have a pleural effusion on the right and underwent thoracentesis with removal of 1.2 L of fluid on 08/10/2023. He underwent repeat CT abdomen and pelvis on 08/10 which showed similar appearance of the small bowel obstruction, ascites, and large left and small right pleural effusions with adjacent airspace disease. His nasogastric tube was removed by 08/13/2023. Patient seen and examined at bedside. He reports that yesterday evening he had some significant abdominal pain after eating. However he tolerated eating today well without any recurrent abdominal pain. He reports he continues to have bowel movements. He denies any nausea, vomiting, or shortness of breath. Vital signs reviewed General: Nontoxic, no distress, appears at stated age Cardiovascular: S1S2 reg, no murmur Lungs: CTA bilateral, no rhonchi, no rales, no accessory muscle use Abdominal: Soft, nontender to palpation, no guarding Ext: No gross muscle atrophy, 2+ edema bilateral lower extremities, 4+ edema left upper extremity, no contractures Neuro: CN II-XI grossly intact, no focal neuro deficits Psych: Alert, oriented, appropriate affect Assessment/Plan: Ileus and probable ischemic colitis, improved -Has been advanced to full liquid diet -Surgery note reviewed from 08/15: Continue full liquid diet advance as tolerated. Left upper extremity edema -Venous Doppler negative. Continue to monitor. -Encourage patient to begin mobility exercises of the left upper extremity. Pneumonia Bilateral pleural effusion, status post right-sided thoracentesis 08/10/2023 -Zosyn 3.375 g every 8 hours IV piggyback day #16, fluconazole 200 mg IV daily day #4 -Infectious disease note reviewed from 08/15/2023: Continue with Zosyn and Diflucan. Plan is for oral antibiotics once oral intake improves. -Pulmonary note reviewed from 08/15/2023: Continue with current care. Acute on chronic systolic CHF, EF 30 to 35% - monitor fluid status closely -Start Lasix 40 mg twice daily - Spironolactone 50 mg at night, lisinopril 5 mg, Metoprolol 12.5 mg PO BID Anemia, suspect due to prolonged hospital stay Thrombocytosis, reactive - Follow CBC -Check iron studies Chronic: Atrial fibrillation Coronary artery disease with history of myocardial infarction status post coronary artery bypass grafting Hypothyroidism Dyslipidemia Hyponatremia, resolved Septic shock in an immunocompromised patient with hx of splenectomy, respoved Imaging: Left upper extremity Doppler: Normal flow, and negative for DVT Data Review: Labs reviewed from today include CBC which is remarkable for hemoglobin 11.4, white blood cell count 12.3, platelets 572, BMP pending. DVT prophylaxis: Lovenox Anticipated discharge date: 24 to [address]: Home with home health This dictation was prepared using [employer] voice recognition software. Though every attempt is made to correct errors during dictation some may still exist. Objective - Vital Signs Vital signs: Vital Signs Temp 97.5 F L 08/16/23 01:46 Pulse 87 08/16/23 01:46 Resp 15 08/16/23 01:46 BP 106/68 08/16/23 01:46 Pulse Ox 95 08/16/23 01:46 FiO2 Intake & Output 08/15/23 08/16/23 08/16/23 18:59 06:59 18:59 Output Total 300 Balance -300 Output: Urine 300 Other: # Voids 1 1 # Bowel Movements 1 - Labs CBC & Chem 7: 08/16/23 08:10 08/15/23 06:10 Labs: Abnormal Lab Results - Last 24 Hours (Table) 08/15/23 08/15/23 08/15/23 Range/Units 06:10 06:10 11:56 WBC 12.1 H (3.8-10.6) k/uL RBC 4.04 L (4.30-5.90) m/uL Hgb 11.8 L (13.0-17.5) gm/dL Hct 36.9 L (39.0-53.0) % Plt Count 634 H (150-450) k/uL Sodium 134 L (137-145) mmol/L Potassium 3.4 L (3.5-5.1) mmol/L POC Glucose (mg/dL) 119 H (70-110) mg/dL Calcium 8.1 L (8.4-10.2) mg/dL 08/15/23 08/15/23 08/16/23 Range/Units 16:39 20:30 05:44 WBC (3.8-10.6) k/uL RBC (4.30-5.90) m/uL Hgb (13.0-17.5) gm/dL Hct (39.0-53.0) % Plt Count (150-450) k/uL Sodium (137-145) mmol/L Potassium (3.5-5.1) mmol/L POC Glucose (mg/dL) 133 H 132 H 124 H (70-110) mg/dL Calcium (8.4-10.2) mg/dL Microbiology - Last 24 Hours (Table) 08/10/23 10:00 Acid Fast Bacilli Smear - Preliminary Pleural Fluid
[2023-08-16 10:22] LABS: African American GFR (CKD) >90 (>60 ml/min/1.73 sqM); Anion Gap 7 mmol/L; Blood Urea Nitrogen 10 mg/dL (9-20); Calcium 8.4 mg/dL (8.4-10.2); Carbon Dioxide 24 mmol/L (22-30); Chloride 104 mmol/L (98-107); Glucose 118 mg/dL (74-99); Non-African American GFR(CKD) >90 (>60 ml/min/1.73 sqM); Potassium 3.9 mmol/L (3.5-5.1); Sodium 135 mmol/L (137-145)
[2023-08-16 11:39] LABS: Glucose,Whole Blood 111 mg/dL (70-110)
--- NOTE | 2023-08-16 11:49 | P.PN ---
Subjective Progress Note Date: 08/16/23 Principal diagnosis: Reason for follow-up is sepsis, ileus and possible aspiration pneumonia Patient is a 80-year-old male with a past medical history significant for atrial fibrillation hypertension hyperlipidemia [place] did have history of Hodgkin lymphoma and prostate cancer splenectomy as a part of staging for the Hodgkin lymphoma back in the 70s presenting to the ER for evaluation of abdominal pain and also have an episode of vomiting and apparently the patient did have diarrhea prior to coming to the hospital patient did have a CT abdominal pelvis concerning for left lower lobe airspace disease and there was also concerning for ileus with initial concern for sepsis secondary to abdominal source. On today's evaluation that is 08/16/2023, Patient is afebrile patient is currently on 2 L nasal cannula oxygen and denies having any shortness of breath, the patient denies any chest pain or cough, the patient denies any nausea vomiting abdominal pain has decreased in intensity and did have a bowel movement. Patient white count is 12.3 creatinine 0.66 Objective - Vital Signs Vital signs: Vital Signs Temp 97.7 F 08/16/23 07:21 Pulse 99 08/16/23 07:21 Resp 18 08/16/23 07:21 BP 121/75 08/16/23 07:21 Pulse Ox 96 08/16/23 07:21 FiO2 Intake & Output 08/15/23 08/16/23 08/16/23 18:59 06:59 18:59 Output Total 300 Balance -300 Output: Urine 300 Other: # Voids 1 1 # Bowel Movements 1 - Exam GENERAL DESCRIPTION: An elderly male lying in bed in no distress RESPIRATORY SYSTEM: Unlabored breathing , decreased breath sounds at bases HEART: S1 S2 regular rate and rhythm , ABDOMEN: Soft , slightly tense EXTREMITIES: No edema feet - Labs CBC & Chem 7: 08/16/23 08:10 08/16/23 08:10 Labs: Abnormal Lab Results - Last 24 Hours (Table) 08/15/23 08/15/23 08/15/23 Range/Units 11:56 16:39 20:30 WBC (3.8-10.6) k/uL RBC (4.30-5.90) m/uL Hgb (13.0-17.5) gm/dL Hct (39.0-53.0) % Plt Count (150-450) k/uL Sodium (137-145) mmol/L Glucose (74-99) mg/dL POC Glucose (mg/dL) 119 H 133 H 132 H (70-110) mg/dL 08/16/23 08/16/23 08/16/23 Range/Units 05:44 08:10 08:10 WBC 12.3 H (3.8-10.6) k/uL RBC 3.92 L (4.30-5.90) m/uL Hgb 11.4 L (13.0-17.5) gm/dL Hct 35.8 L (39.0-53.0) % Plt Count 572 H (150-450) k/uL Sodium 135 L (137-145) mmol/L Glucose 118 H (74-99) mg/dL POC Glucose (mg/dL) 124 H (70-110) mg/dL 08/16/23 Range/Units 11:38 WBC (3.8-10.6) k/uL RBC (4.30-5.90) m/uL Hgb (13.0-17.5) gm/dL Hct (39.0-53.0) % Plt Count (150-450) k/uL Sodium (137-145) mmol/L Glucose (74-99) mg/dL POC Glucose (mg/dL) 111 H (70-110) mg/dL Microbiology - Last 24 Hours (Table) 08/10/23 10:00 Acid Fast Bacilli Smear - Preliminary Pleural Fluid Assessment and Plan (1) Leukocytosis Current Visit: Yes Status: Acute Code(s): D72.829 - ELEVATED WHITE BLOOD CELL COUNT, UNSPECIFIED SNOMED Code(s): 972836719 (2) Pneumonia Current Visit: Yes Status: Acute Code(s): J18.9 - PNEUMONIA, UNSPECIFIED ORGANISM SNOMED Code(s): 969224179 Plan: 1patient presented hospital with sepsis/septic shock in this patient who did have a fever tachycardia hypotension requiring pressor support patient predominately have abdominal symptoms of pain and did have diarrhea with a recent diagnosis of colitis and initial concern for possible ischemic versus infectious colitis 2-CT abdominal pelvis also shows evidence of left lower lobe pneumonia and patient did have vomiting before coming to the hospital with question of possible aspiration pneumonia, patient also have evidence of effusion status post thoracocentesis fluid cultures has been negative 3-patient is afebrile and the white count around 12,000, patient to continue with the Zosyn and Diflucan, and monitor clinical course closely Dictation was produced using [employer] dictation software. please excuse any grammatical, word or spelling errors. Time with Patient: Less than 30
--- NOTE | 2023-08-16 12:24 | P.PN ---
Subjective Progress Note Date: 08/16/23 Principal diagnosis: Sepsis. The patient is seen today August 07, 2023 and follow-up on the regular medical floor. He is currently sitting up in the bedside. Awake and alert in no acute distress. He is maintaining good O2 saturations in the 90s on room air. He is a febrile. Hemodynamically stable. He has a PICC line in place and is receiving TPN for nutritional support. Blood cultures are no growth. Urine culture revealed no growth. White count 11.6. Hemoglobin 11.5. Sodium 133. Potassium 4.0. Bicarb 22. BUN 10. Creatinine 0.7. Glucose 90. He remains on Lovenox for DVT prophylaxis. Continued on antibiotics in the form of Zosyn. The patient is seen today August 08, 2023 in follow-up on the regular medical floor. He is awake and alert in no acute distress. He is having some abdominal discomfort this morning. No worsening shortness of breath, cough or congestion. Maintaining good O2 saturations in the 90s on room air. He has normal staying at KVO. He has been afebrile. Hemodynamically stable. CT scan of the abdomen and pelvis revealed dilated small bowel loops extending towards the ileum. Small bowel obstruction should be considered. Ileus could be considered. Zone of transition not clearly identified. Small amount of ascites adjacent to the liver. Moderate bilateral pleural effusions with adjacent atelectasis. White count 11.7. Hemoglobin 11.9. Platelets 416. The patient is seen today August 09, 2023 in follow-up on the regular medical floor. He is a bit lethargic today. He is arousable. He is somewhat agitated. He told us to get out of the room. He was refusing to sit up for possible thoracentesis today. Ultrasound of the chest does reveal a 11 cm pocket on the right and a 10 m 10 cm pocket on the left. He is stable and maintaining O2 saturations in the 90s on room air. Blood cultures revealed no growth. Urine culture revealed no growth. White count 12.7. Hemoglobin 11.9. Platelets 510. Sodium 136. Potassium 4.2. Bicarb 24. BUN 13. Creatinine 1.0. Glucose 90. He is continued on D5 and a half normal saline at 50 MLS per hour. Lovenox for DVT prophylaxis. Remains on antibiotics in the form of Zosyn. The patient is seen today August 10, 2023 in follow-up on the regular medical floor. He is more awake and alert today. Maintaining O2 saturations in the 90s on room air. Nasogastric tube remains in place. White count 12.7. Hemoglobin 11.7. Platelets 538. Sodium 137. Potassium 3.7. Bicarb 29. BUN 13. Creatinine 0.9. Glucose 87. Continued on antibiotics in the form of Zosyn. Lovenox for DVT prophylaxis. The patient was agreeable to thoracentesis today. He had 1.2 L removed from his right pleural cavity. Cytology and fluid analysis pending. The patient is seen today August 11, 2023 in follow-up on the regular medical floor. He is sitting up in bed. Awake and alert in no acute distress. He denies any worsening shortness of breath, cough or congestion. He is maintaining good O2 saturations in the 90s on room air. He is afebrile. Hemodynamically stable. Nasogastric tube remains in place. Denies any significant nausea. No abdominal pain. Follow-up CT scan of the abdomen continues to show no significant change in the appearance of the small bowel obstruction. Contrast is seen within the small bowel and does appear to have passed some into the colon. This may relate to a partial small bowel obstruction versus ileus. Left pleural effusion remains. Pleural fluid analysis from the right thoracentesis yesterday reveals transudate with a protein of 2.7 and an LDH of 146. No plans for thoracentesis of the left chest today. Remains on antibiotics in the form of Zosyn. Lovenox for DVT prophylaxis. The patient is seen today August 12, 2023 in follow-up on the regular medical floor. He is awake and alert in no acute distress. Sitting up in bed. Denies any worsening shortness of breath, cough or congestion. Nasogastric tube remains in place. He is maintaining O2 saturations in the 90s on room air. He remains on Lovenox for DVT prophylaxis. Remains on antibiotics in the form of Zosyn. White count 13.9. Hemoglobin 12.0. Platelets 537. Sodium 131. Potassium 3.8. Bicarb 26. BUN 13. Creatinine 0.69. Glucose 93. The patient is seen today August 13, 2023 in follow-up on the regular medical floor. He is currently sitting up in bed. Awake and alert in no acute distress. Maintaining good O2 saturations in the 90s on room air. His nasogastric tube has been removed. He has D5.9 normal saline at 50 mL/h. Thoracentesis performed on the left chest today with 1.0 L of straw-colored flui d removed. Not sent for analysis. He is continued on fluconazole and Zosyn. Lovenox for DVT prophylaxis. White count 15.9. Hemoglobin 12.6. Platelets 581. Sodium 130. Potassium 3.5. Bicarb 28. BUN 11. Creatinine 0.66. Glucose 103. The patient is seen today August 14, 2023 in follow-up on the regular medical floor. He is sitting up in bed awake and alert in no acute distress. Maint aining good O2 saturations in the 90s on room air. He has normal staying at 50 MLS per hour. He is continued on antibiotics in the form of Zosyn and fluconazole. Pleural fluid cultures revealed no growth. White count 14.7. Hemoglobin 12.6. Sodium 133. Potassium 3.2. Bicarb 26. BUN 10. Creatinine 0.70. Glucose 103. He remains on Lovenox for DVT prophylaxis. Progress note dated August 15, 2023. 72-year-old male seen today in room 453. Currently, the patient is not on any oxygen. He is getting Zosyn. In addition, he is getting saline at 10 cc an hour, and dextrose with half-normal saline at 50 cc an hour. He seems relatively comfortable, and he states that his breathing is stable. Current laboratory includes a white count 12.1, hemoglobin 11.8, hematocrit 36.9, and platelet count 634,000. Sodium 134, potassium 3.4, chlorides 102, CO2 25, BUN 9, creatinine 0.68. Calcium is 8.1. Cultures are thus far negative. No recent chest x-rays to review. Progress note dated August 16, 2023. The patient is seen today in room 453. The patient is currently on room air. He is not having any respiratory distress. Microbiologic sampling has been negative. He had a Doppler of the left upper extremity which was negative as well. The patient continues on Zosyn. In addition, the patient is on saline at 50 cc an hour. Current labs include a white count 12.3, hemoglobin 11.4, hematocrit 35.8, and a platelet count is 572,000. Sodium 135, potassium 3.9, chlorides 104, CO2 24, BUN 10, creatinine 0.66. Glucose is 111. Calcium 8.4, magnesium 2.0. Objective - Vital Signs Vital signs: Vital Signs Temp 97.7 F 08/16/23 07:21 Pulse 99 08/16/23 07:21 Resp 18 08/16/23 07:21 BP 121/75 08/16/23 07:21 Pulse Ox 96 08/16/23 07:21 FiO2 Intake & Output 08/15/23 08/16/23 08/16/23 18:59 06:59 18:59 Output Total 300 Balance -300 Output: Urine 300 Other: # Voids 1 1 # Bowel Movements 1 - Exam No acute distress, oriented 3. Currently on room air. HEENT examination is grossly unremarkable. Mucous membranes are moist. No oral lesions. Neck supple. Full range of motion. No adenopathy thyromegaly or neck vein distention. Cardiovascular examination reveals regular rhythm rate. S1-S2 normal. No S3 or S4. No discernible murmur noted. Heart rate is 90 bpm. Lungs reveal clear breath sounds. Breath sounds are equal bilaterally. No adventitious lung sounds including wheezes rhonchi or crackles. Room air saturation is 96 %. Abdomen soft bowel sounds are heard. No masses or tenderness. Extremities are intact. No cyanosis clubbing or edema. Skin is without rash or lesion. Neurologic examination is brief but nonfocal. - Labs CBC & Chem 7: 08/16/23 08:10 08/16/23 08:10 Labs: Abnormal Lab Results - Last 24 Hours (Table) 08/15/23 08/15/23 08/16/23 Range/Units 16:39 20:30 05:44 WBC (3.8-10.6) k/uL RBC (4.30-5.90) m/uL Hgb (13.0-17.5) gm/dL Hct (39.0-53.0) % Plt Count (150-450) k/uL Sodium (137-145) mmol/L Glucose (74-99) mg/dL POC Glucose (mg/dL) 133 H 132 H 124 H (70-110) mg/dL 08/16/23 08/16/23 08/16/23 Range/Units 08:10 08:10 11:38 WBC 12.3 H (3.8-10.6) k/uL RBC 3.92 L (4.30-5.90) m/uL Hgb 11.4 L (13.0-17.5) gm/dL Hct 35.8 L (39.0-53.0) % Plt Count 572 H (150-450) k/uL Sodium 135 L (137-145) mmol/L Glucose 118 H (74-99) mg/dL POC Glucose (mg/dL) 111 H (70-110) mg/dL Microbiology - Last 24 Hours (Table) 08/10/23 10:00 Acid Fast Bacilli Smear - Preliminary Pleural Fluid Assessment and Plan Assessment: Acute hypotension/shock, a combination of hypovolemic and septic in nature, recovered and the patient is currently normotensive and the procalcitonin level is on the decline. Abdominal discomfort with nausea and vomiting. CT scan of the abdomen reveals dilated small bowel loops extending towards the ileum. Small bowel obstruction should be considered. Ileus could be considered. Zone of transition not clearly identified. Nasogastric tube placed. Follow-up CT scan from 08/10/2023 shows no significant change. Bilateral pleural effusions, right-sided thoracentesis August 10, 2023 with 1.2 L of straw-colored fluid removed, transudate, cytology pending. Left sided thoracentesis performed August 13, 2023 with 1 L of straw-colored fluid removed. CHF with impaired ejection fraction of 35 to 40% with chronic systolic heart failure based on echocardiogram in 2019, the patient has an AICD in place, repeat echocardiogram showed an ejection fraction of around 30 to 35% along with global hypokinesis. Coronary artery disease previous bypass surgery and the patient's most recent cardiac catheterization is from May 2021 and this indicated patent GOMEZ to LAD and patent SVG to PDA and occluded SVG to OM1, OM 2 and diagonal. The [place] coronary arteries were also disease. Medical management was offered to this patient. Hyperlipidemia. Hypothyroidism. History of Hodgkin's lymphoma with a previous splenectomy followed by chemoradiation therapy back in . History of prostate cancer. Hyponatremia, likely hypovolemic in nature secondary to diarrhea. Plan: Plan dated August 15, 2023. The is seen today in room 453. He remains on room air. Labs, x-rays, and medications are all reviewed. The patient continues on Zosyn. He is also getting saline, at 10 cc an hour. His other IV is dextrose with half-normal saline at 50 cc an hour. We will continue to follow make recommendations along the way. Prognosis is guarded. He is stable from the pulmonary standpoint, and has been on room air for a number of days. Labs, x-rays, and medications are reviewed. Prognosis is guarded. We will continue to follow the patient. Plan dated August 16, 2023. The patient appears to be doing very well. The patient's labs, x-rays, and medications are all reviewed. Currently, the patient is on room air. The patient is getting saline at 50 cc an hour. The patient's Doppler of the left upper extremity was negative. The patient continues on Zosyn. We will continue to follow the patient, make recommendations along the way. The patient's overall prognosis remains guarded. The patient is now been in the hospital for 15 days. Discharge planning underway. Time with Patient: Less than 30
--- NOTE | 2023-08-16 14:09 | P.PN ---
Subjective Progress Note Date: 08/16/23 CHIEF COMPLAINT: Abdominal pain HISTORY OF PRESENT ILLNESS: Patient did report some abdominal pain last night. But pain is improved today. He still mildly distended. He is having bowel movements. Denies any nausea or vomiting. He did not feel ready to advance his diet. Is currently on full liquids. Afebrile. WBC 12.3 Hgb 11.4 potassium 3.9 PHYSICAL EXAM: VITAL SIGNS: Reviewed. GENERAL: no acute distress. ABDOMEN: Soft. Nontender. Mildly distended NEUROLOGIC: awake and alert ASSESSMENT: 1. Small bowel obstruction versus ileus 2. Possible ischemic colitis on admission 3. Bilateral pleural effusions evaluated by pulmonary service. Status post right and left sided thoracentesis 4. History of splenectomy 5. Hypokalemia improved PLAN: -Continue full liquid diet and advance as tolerated -Encourage patient to increase activity level -Continue to monitor Physician [employer] Developer note has been reviewed by physician. Signing provider agrees with the documented findings, assessment, and plan of care. Report Objective - Vital Signs Vital signs: Vital Signs Temp 97.7 F 08/16/23 07:21 Pulse 99 08/16/23 07:21 Resp 18 08/16/23 07:21 BP 121/75 08/16/23 07:21 Pulse Ox 96 08/16/23 07:21 FiO2 Intake & Output 08/15/23 08/16/23 08/16/23 18:59 06:59 18:59 Output Total 300 Balance -300 Output: Urine 300 Other: # Voids 1 1 # Bowel Movements 1 - Labs CBC & Chem 7: 08/16/23 08:10 08/16/23 08:10 Labs: Abnormal Lab Results - Last 24 Hours (Table) 08/15/23 08/15/23 08/16/23 Range/Units 16:39 20:30 05:44 WBC (3.8-10.6) k/uL RBC (4.30-5.90) m/uL Hgb (13.0-17.5) gm/dL Hct (39.0-53.0) % Plt Count (150-450) k/uL Sodium (137-145) mmol/L Glucose (74-99) mg/dL POC Glucose (mg/dL) 133 H 132 H 124 H (70-110) mg/dL 08/16/23 08/16/23 08/16/23 Range/Units 08:10 08:10 11:38 WBC 12.3 H (3.8-10.6) k/uL RBC 3.92 L (4.30-5.90) m/uL Hgb 11.4 L (13.0-17.5) gm/dL Hct 35.8 L (39.0-53.0) % Plt Count 572 H (150-450) k/uL Sodium 135 L (137-145) mmol/L Glucose 118 H (74-99) mg/dL POC Glucose (mg/dL) 111 H (70-110) mg/dL Microbiology - Last 24 Hours (Table) 08/10/23 10:00 Acid Fast Bacilli Smear - Preliminary Pleural Fluid
[2023-08-16 16:45] LABS: Glucose,Whole Blood 93 mg/dL (70-110)
[2023-08-16 17:58] LABS: % Iron Saturation 7.62 (15.00-50.00)
[2023-08-16 20:07] LABS: Glucose,Whole Blood 109 mg/dL (70-110)
[2023-08-17 05:49] LABS: Glucose,Whole Blood 97 mg/dL (70-110)
[2023-08-17 08:20] LABS: HGB 12.2 gm/dL (13.0-17.5); Hypochromasia Slight; MCH 29.5 pg (25.0-35.0); MCHC 32.1 g/dL (31.0-37.0); MCV 91.8 fL (80.0-100.0); Mean Platelet Volume 7.8; Platelet Count 599 k/uL (150-450); RBC 4.14 m/uL (4.30-5.90); WBC 9.8 k/uL (3.8-10.6)
[2023-08-17 09:12] LABS: African American GFR (CKD) >90 (>60 ml/min/1.73 sqM); Anion Gap 9 mmol/L; Blood Urea Nitrogen 11 mg/dL (9-20); Carbon Dioxide 25 mmol/L (22-30); Chloride 101 mmol/L (98-107); Glucose 100 mg/dL (74-99); Non-African American GFR(CKD) 89 (>60 ml/min/1.73 sqM); Potassium 3.8 mmol/L (3.5-5.1); Sodium 135 mmol/L (137-145)
[2023-08-17 11:22] LABS: Glucose,Whole Blood 105 mg/dL (70-110)
[2023-08-17] MEDS: SODIUM FERRIC GLUCONAT-SUCROSE 125 MG in SODIUM CHLORIDE 0.9% 100 ML IVPB ONE (11:50)
--- NOTE | 2023-08-17 13:15 | P.PN ---
Subjective Progress Note Date: 08/17/23 CHIEF COMPLAINT: Abdominal pain HISTORY OF PRESENT ILLNESS: Patient sitting up in bedside chair. Denies any abdominal pain. Denies any nausea or vomiting. Tolerating the full liquid diet. Afebrile. White count normalized at 9.8 hemoglobin stable at 12.2 PHYSICAL EXAM: VITAL SIGNS: Reviewed. GENERAL: no acute distress. ABDOMEN: Soft. Nontender. Mildly distended NEUROLOGIC: awake and alert ASSESSMENT: 1. Small bowel obstruction versus ileus 2. Possible ischemic colitis on admission 3. Bilateral pleural effusions evaluated by pulmonary service. Status post right and left sided thoracentesis 4. History of splenectomy 5. Hypokalemia improved PLAN: -Agree with advancing diet to regular -Agree with possible discharge tomorrow -Encourage patient to increase activity level -Continue to monitor Physician Bag Sealer note has been reviewed by physician. Signing provider agrees with the documented findings, assessment, and plan of care. Report Objective - Vital Signs Vital signs: Vital Signs Temp 97.8 F 08/17/23 07:09 Pulse 94 08/17/23 07:09 Resp 17 08/17/23 07:09 BP 117/82 08/17/23 07:09 Pulse Ox 93 L 08/17/23 07:09 FiO2 Intake & Output 08/16/23 08/17/23 08/17/23 18:59 06:59 18:59 Intake Total 100 Output Total 1300 Balance 100 -1300 Intake: Intake, IV Titration 100 Amount Piperacillin-Tazobactam 3 100 .375 gm In Sodium Chloride 0.9% 100 ml @ 25 mls/hr IVPB Q8HR [facility] Rx# :[id number] Output: Urine 1300 Other: # Voids 1 1 1 # Bowel Movements 1 1 - Labs CBC & Chem 7: 08/17/23 07:50 08/17/23 07:50 Labs: Abnormal Lab Results - Last 24 Hours (Table) 08/16/23 08/17/23 08/17/23 Range/Units 08:10 07:50 07:50 RBC 4.14 L (4.30-5.90) m/uL Hgb 12.2 L (13.0-17.5) gm/dL Hct 38.0 L (39.0-53.0) % Plt Count 599 H (150-450) k/uL Sodium 135 L (137-145) mmol/L Glucose 100 H (74-99) mg/dL Iron 17 L (65-175) UG/DL TIBC 223 L (228-460) UG/DL % Saturation 7.62 L (15.00-50.00) Transferrin 159.0 L (204.0-354.0) mg/dL
--- NOTE | 2023-08-17 13:29 | P.PN ---
Subjective Progress Note Date: 08/17/23 The patient is seen today August 07, 2023 and follow-up on the regular medical floor. He is currently sitting up in the bedside. Awake and alert in no acute distress. He is maintaining good O2 saturations in the 90s on room air. He is a febrile. Hemodynamically stable. He has a PICC line in place and is receiving TPN for nutritional support. Blood cultures are no growth. Urine culture revealed no growth. White count 11.6. Hemoglobin 11.5. Sodium 133. Potassium 4.0. Bicarb 22. BUN 10. Creatinine 0.7. Glucose 90. He remains on Lovenox for DVT prophylaxis. Continued on antibiotics in the form of Zosyn. The patient is seen today August 08, 2023 in follow-up on the regular medical floor. He is awake and alert in no acute distress. He is having some abdominal discomfort this morning. No worsening shortness of breath, cough or congestion. Maintaining good O2 saturations in the 90s on room air. He has normal staying at KVO. He has been afebrile. Hemodynamically stable. CT scan of the abdomen and pelvis revealed dilated small bowel loops extending towards the ileum. Small bowel obstruction should be considered. Ileus could be considered. Zone of transition not clearly identified. Small amount of ascites adjacent to the liver. Moderate bilateral pleural effusions with adjacent atelectasis. White count 11.7. Hemoglobin 11.9. Platelets 416. The patient is seen today August 09, 2023 in follow-up on the regular medical floor. He is a bit lethargic today. He is arousable. He is somewhat agitated. He told us to get out of the room. He was refusing to sit up for possible thoracentesis today. Ultrasound of the chest does reveal a 11 cm pocket on the right and a 10 m 10 cm pocket on the left. He is stable and maintaining O2 saturations in the 90s on room air. Blood cultures revealed no growth. Urine culture revealed no growth. White count 12.7. Hemoglobin 11.9. Platelets 510. Sodium 136. Potassium 4.2. Bicarb 24. BUN 13. Creatinine 1.0. Glucose 90. He is continued on D5 and a half normal saline at 50 MLS per hour. Lovenox for DVT prophylaxis. Remains on antibiotics in the form of Zosyn. The patient is seen today August 10, 2023 in follow-up on the regular medical floor. He is more awake and alert today. Maintaining O2 saturations in the 90s on room air. Nasogastric tube remains in place. White count 12.7. Hemoglobin 11.7. Platelets 538. Sodium 137. Potassium 3.7. Bicarb 29. BUN 13. Creatinine 0.9. Glucose 87. Continued on antibiotics in the form of Zosyn. Lovenox for DVT prophylaxis. The patient was agreeable to thoracentesis today. He had 1.2 L removed from his right pleural cavity. Cytology and fluid analysis pending. The patient is seen today August 11, 2023 in follow-up on the regular medical floor. He is sitting up in bed. Awake and alert in no acute distress. He denies any worsening shortness of breath, cough or congestion. He is maintaining good O2 saturations in the 90s on room air. He is afebrile. Hemodynamically stable. Nasogastric tube remains in place. Denies any s ignificant nausea. No abdominal pain. Follow-up CT scan of the abdomen continues to show no significant change in the appearance of the small bowel obstruction. Contrast is seen within the small bowel and does appear to have passed some into the colon. This may relate to a partial small bowel ob struction versus ileus. Left pleural effusion remains. Pleural fluid analysis from the right thoracentesis yesterday reveals transudate with a protein of 2.7 and an LDH of 146. No plans for thoracentesis of the left chest today. Remains on antibiotics in the form of Zosyn. Lovenox for DVT prophylaxis. The patient is seen today August 12, 2023 in follow-up on the regular medical floor. He is awake and alert in no acute distress. Sitting up in bed. Denies any worsening shortness of breath, cough or congestion. Nasogastric tube remains in place. He is maintaining O2 saturations in the 90s on room air. He remains on Lovenox for DVT prophylaxis. Remains on antibiotics in the form of Zosyn. White count 13.9. Hemoglobin 12.0. Platelets 537. Sodium 131. Pot assium 3.8. Bicarb 26. BUN 13. Creatinine 0.69. Glucose 93. The patient is seen today August 13, 2023 in follow-up on the regular medical floor. He is currently sitting up in bed. Awake and alert in no acute distress. Maintaining good O2 saturations in the 90s on room air. His nasogastric tube has been removed. He has D5.9 normal saline at 50 mL/h. Thoracentesis performed on the left chest today with 1.0 L of straw-colored fluid removed. Not sent for analysis. He is continued on fluconazole and Zosyn. Lovenox for DVT prophylaxis. White count 15.9. Hemoglobin 12.6. Platelets 581. Sodium 130. Potassium 3.5. Bicarb 28. BUN 11. Creatinine 0.66. Glucose 103. The patient is seen today August 14, 2023 in follow-up on the regular medical floor. He is sitting up in bed awake and alert in no acute distress. Maintaining good O2 saturations in the 90s on room air. He has normal staying at 50 MLS per hour. He is continued on antibiotics in the form of Zosyn and fluconazole. Pleural fluid cultures revealed no growth. White count 14.7. Hemoglobin 12.6. Sodium 133. Potassium 3.2. Bicarb 26. BUN 10. Creatinine 0.70. Glucose 103. He remains on Lovenox for DVT prophylaxis. The patient is seen today August 17, 2023 in follow-up on the regular medical floor. He is currently sitting up in a chair at the bedside. Awake and alert in no acute distress. He is maintaining good O2 saturations in the 90s on room air. His heart is regular. No fever. No worsening shortness of breath, cough or congestion. He has trace peripheral edema. White count 9.8. Hemoglobin 12.2. Platelets 599. Sodium 135. Potassium 3.8. Bicarb 25. BUN 11. Creatinine 0.83. Glucose 100. He remains on Zosyn and fluconazole. Lovenox for DVT prophylaxis. Remains on IV diuretics. Currently in a -1.2 L balance. Objective - Vital Signs Vital signs: Vital Signs Temp 97.8 F 08/17/23 07:09 Pulse 94 08/17/23 07:09 Resp 17 08/17/23 07:09 BP 117/82 08/17/23 07:09 Pulse Ox 93 L 08/17/23 07:09 FiO2 Intake & Output 08/16/23 08/17/23 08/17/23 18:59 06:59 18:59 Intake Total 100 Output Total 1300 Balance 100 -1300 Intake: Intake, IV Titration 100 Amount Piperacillin-Tazobactam 3 100 .375 gm In Sodium Chloride 0.9% 100 ml @ 25 mls/hr IVPB Q8HR [facility] Rx# :[id number] Output: Urine 1300 Other: # Voids 1 1 1 # Bowel Movements 1 1 - Exam General: Alert, thin pleasant 72-year-old male, on room air, sitting up in a chair. Head exam was generally normal. There was no scleral icterus or corneal arcus. Mucous membranes were moist. Derm: warm, dry Eyes: EOMI, no lid lag, anicteric sclera, pupils equal round reactive to light ENT: Nose and ears atraumatic, mucous membranes dry. Cardiovascular: S1S2 reg, n soft systolic ejection murmur over the left apex. The patient also has a scar of previous thoracotomy Lungs: Diminished in the bilateral bases, crackles left greater than right. Abdominal: Soft, tender to palpation diffusely, no guarding, scar of previous abdominal surgeries noted. No rebound tenderness. Ext: no gross muscle atrophy, no contractures Neuro: CN II-XII grossly intact, No focal neuro deficits Psych: Alert, oriented, appropriate affect - Labs CBC & Chem 7: 08/17/23 07:50 08/17/23 07:50 Labs: Abnormal Lab Results - Last 24 Hours (Table) 08/16/23 08/17/23 08/17/23 Range/Units 08:10 07:50 07:50 RBC 4.14 L (4.30-5.90) m/uL Hgb 12.2 L (13.0-17.5) gm/dL Hct 38.0 L (39.0-53.0) % Plt Count 599 H (150-450) k/uL Sodium 135 L (137-145) mmol/L Glucose 100 H (74-99) mg/dL Iron 17 L (65-175) UG/DL TIBC 223 L (228-460) UG/DL % Saturation 7.62 L (15.00-50.00) Transferrin 159.0 L (204.0-354.0) mg/dL Assessment and Plan Assessment: Acute hypotension/shock, a combination of hypovolemic and septic in nature, recovered and the patient is currently normotensive and the procalcitonin level is on the decline Abdominal discomfort with nausea and vomiting. CT scan of the abdomen reveals dilated small bowel loops extending towards the ileum. Small bowel obstruction should be considered. Ileus could be considered. Zone of transition not clearly identified. Nasogastric tube placed. Follow-up CT scan from 08/10/2023 shows no significant change Bilateral pleural effusions, right-sided thoracentesis August 10, 2023 with 1. 2 L of straw-colored fluid removed, transudate, cytology pending. Left sided thoracentesis performed August 13, 2023 with 1 L of straw-colored fluid removed. Not sent for analysis. CHF with impaired ejection fraction of 35 to 40% with chronic systolic heart failure based on echocardiogram in 2019, the patient has an AICD in place, repeat echocardiogram showed an ejection fraction of around 30 to 35% along with global hypokinesis Coronary artery disease previous bypass surgery and the patient's most recent cardiac catheterization is from May 2021 and this indicated patent GOMEZ to LAD and patent SVG to PDA and occluded SVG to OM1, OM 2 and diagonal. The [place] coronary arteries were also disease. Medical management was offered to this patient. Hyperlipidemia Hypothyroidism History of Hodgkin's lymphoma with a previous splenectomy followed by chemoradiation therapy back in History of prostate cancer, UA is negative at this point in time, the patient has been treated with therapy in the past Hyponatremia, likely hypovolemic in nature secondary to diarrhea, sodium level is improving Plan: The patient was seen and evaluated Labs and medications reviewed Continue the current treatment plan Currently stable and on room air Tolerating a low fiber diet Plan is for home with home care at discharge I have personally seen and examined the patient, performed the documentation and the assessment and plan as written. Number of minutes spent on the visit: 10.
[2023-08-17 13:47] VITALS: BP 108/67; PULSE 88; RESP 18; TEMP 97.9
--- NOTE | 2023-08-17 15:24 | P.DS ---
Providers Date of admission: 08/01/23 10:31 Expected date of discharge: 08/17/23 Attending physician: Bouchra Kline DO Consults: 08/01/23 10:30 Consult Physician Stat Consulting Provider: Faye Hanson Consult Reason/Comments: Sepsis, shock Do you want consulting provider notified?: Already Contacted 08/01/23 11:28 Consult Physician Routine Consulting Provider: Shell Wetzel Consult Reason/Comments: PNA in splenectomy patient Do you want consulting provider notified?: Yes 08/01/23 13:04 Consult Physician Routine Consulting Provider: Deshaun Clay Consult Reason/Comments: abdominal pain, ileus Do you want consulting provider notified?: Already Contacted Primary care physician: Roberto Cortez MD Hospital Course: Discharge Diagnosis: Ileus and probable ischemic colitis, improved Left upper extremity edema- Negative venous doppler Pneumonia, possible gram negative Bilateral pleural effusion, status post right-sided thoracentesis 08/10/2023 Acute on chronic systolic CHF, EF 30 to 35% Anemia, suspect due to prolonged hospital stay Thrombocytosis, reactive Atrial fibrillation Coronary artery disease with history of myocardial infarction status post coronary artery bypass grafting Hypothyroidism Dyslipidemia Hyponatremia, resolved Septic shock in an immunocompromised patient with hx of splenectomy, resolved Hospital Course: Patient is a 72-year-old male with a history of Hodgkin's lymphoma status post chemo radiation and splenectomy in the , atrial fibrillation, dyslipidemia, coronary artery disease with myocardial infarction and coronary artery bypass surgery, and prostate cancer who presented to the emergency department with complaints of abdominal pain. She had been seen in the ER on 07/[address] that showed possible colitis and at that time he was started on a course of amoxicillin, he then developed diarrhea and return to the ER on 07/28 where he was told to stop the amoxicillin. He represented today due to continued abdominal pain. Laboratory analysis in the ER included CBC, CMP, CRP, lipase, and urinalysis which were remarkable for sodium of 127 and C-reactive protein of 17. Influenza A/B/RSV/COVID-19 PCR testing was negative. Initially on presentation patient had stable vital signs but was noted to have a fever of 101.2. Slightly after presentation patient became hypotensive requiring 1.5 L of fluid resuscitation. He remained hypotensive and therefore was started on norepinephrine. Repeat CT abdomen pelvis obtained today demonstrates new left lower lobe airspace opacities, dilation of the small bowel loops with large amount of stool, cardiomegaly with right-sided pleural effusion and anasarca as well as heterogeneous enhancement of the liver consistent with congestive heart failure. Chest x-ray Confirmed left basilar infiltrate. He was started on vancomycin and Zosyn. Arrangements were made for admission to the ICU. He was seen by pulmonary, infectious disease, and general surgery. Antibiotics were optimized to Zosyn only. He underwent echocardiogram which showed an ejection fraction of 30 to 35% with severe global hypokinesis. Patient appeared slightly fluid overload on the morning of 08/05. He had been off of his diuretics since admission. He received 1 dose of IV Lasix and resumed on Aldactone with improvement. His abdominal pain got worse on the morning of 08/08 and he started having vomiting. Repeat CT showed ileus versus small bowel obstruction and an NG tube was placed. He was noted to have a pleural effusion on the right and underwent thoracentesis with removal of 1.2 L of fluid on 08/10/2023. He underwent repeat CT abdomen and pelvis on 08/10 which showed similar appearance of the small bowel obstruction, ascites, and large left and small right pleural effusions with adjacent airspace disease. His nasogastric tube was removed by 08/13/2023. His diet was slowly advanced. He did have some swelling of his left upper extremity and ultrasound was negative for any signs of DVT. He overall had some fluid overload he was doing well. He tolerated a regular diet and was determined stable for discharge. Follow-up: Dr. Singh in 1 week. Lasix 40 mg daily for 7 days then repeat BMP. Diflucan 200 mg daily for the next 5 days. Augmentin 875-125 mg twice daily for the next 5 days. Follow-up with Dr. Cortez in 2 to 3 days. Patient seen and examined at bedside. Doing well. Wants to be discharged home. Pain is well-controlled. No other complaints currently. Vital signs reviewed and stable. General: Nontoxic, no distress, appears at stated age Cardiovascular: S1S2 reg, no murmur, positive posterior tibial pulse bilateral, Lungs: CTA bilateral, no rhonchi, no rales, no accessory muscle use Abdominal: Soft, nontender to palpation, no guarding, no appreciable organomegaly please complete your antibiotics. Ext: No gross muscle atrophy, no edema b/l lower extremities, no contractures Neuro: CN II-XI grossly intact, no focal neuro deficits Psych: Alert, oriented, appropriate affect A total of 35 minutes of time were spent preparing this complex discharge summary. Patient was discharged on 08/17/2023. This dictation was prepared using [employer] voice recognition software. Though every attempt is made to correct errors during dictation some may still exist. Patient Condition at Discharge: Stable Plan - Discharge Summary Discharge Rx Participant: No New Discharge Prescriptions: New Fluconazole [Diflucan] 200 mg PO DAILY #5 tablet Furosemide [Lasix] 40 mg PO DAILY #7 tablet Amoxic-Pot Clav 875-125Mg [Augmentin 875-125] 1 tab PO Q12HR 5 Days #10 tab Metoprolol Tartrate [Lopressor] 12.5 mg PO BID #60 tab Potassium Chloride 10 meq PO DAILY #7 cap Continue Levothyroxine Sodium [Synthroid] 100 mcg PO DAILY Aspirin [Adult Low Dose Aspirin EC] 162 mg PO DAILY Benazepril [Lotensin] 5 mg PO HS Tamsulosin [Flomax] 0.4 mg PO HS Atorvastatin [Lipitor] 40 mg PO HS Famotidine [Pepcid] 20 mg PO BID #30 tablet Spironolactone [Aldactone] 50 mg PO DAILY Ferrous Sulfate [Iron (65 MG Elemental)] 325 mg PO Q2D Discontinued Metoprolol Succinate (ER) [Toprol Xl] 50 mg PO BID Dicyclomine [Bentyl] 20 mg PO QID PRN PRN Reason: abdominal cramping Discharge Medication List Aspirin [Adult Low Dose Aspirin EC] 162 mg PO DAILY 07/12/17 [History] Levothyroxine Sodium [Synthroid] 100 mcg PO DAILY 07/12/17 [History] Benazepril [Lotensin] 5 mg PO HS 02/04/20 [History] Tamsulosin [Flomax] 0.4 mg PO HS 11/02/20 [History] Atorvastatin [Lipitor] 40 mg PO HS 06/11/21 [History] Spironolactone [Aldactone] 50 mg PO DAILY 07/24/23 [History] Famotidine [Pepcid] 20 mg PO BID #30 tablet 07/28/23 [Rx] Ferrous Sulfate [Iron (65 MG Elemental)] 325 mg PO Q2D 08/01/23 [History] Amoxic-Pot Clav 875-125Mg [Augmentin 875-125] 1 tab PO Q12HR 5 Days #10 tab 08/17/23 [Rx] Fluconazole [Diflucan] 200 mg PO DAILY #5 tablet 08/17/23 [Rx] Furosemide [Lasix] 40 mg PO DAILY #7 tablet 08/17/23 [Rx] Metoprolol Tartrate [Lopressor] 12.5 mg PO BID #60 tab 08/17/23 [Rx] Potassium Chloride 10 meq PO DAILY #7 cap 08/17/23 [Rx] Follow up Appointment(s)/Referral(s): Roberot Cortez MD [Primary Care Provider] - 1-2 days [facility] Visiting Nurse, [NON-STAFF] - As Needed Deshaun Clay MD [STAFF PHYSICIAN] - 1 Week Ambulatory/Diagnostic Orders: Basic Metabolic Panel [LAB.AMB] Time Frame: 5 Days, Location: None Selected Activity/Diet/Wound Care/Special Instructions: Activity: As tolerated Diet: low fiber for 5 days and then regular Special Instructions: Lasix 40 mg daily for 7 days. Then please have your blood work repeated . Complete all antibiotics. Thank you for entrusting us with your care. We wish you well on your journey to better health. Discharge Disposition: HOME WITH HOME HEALTH SERVICES
--- NOTE | 2023-08-17 15:46 | P.PN ---
Subjective Progress Note Date: 08/17/23 Principal diagnosis: Reason for follow-up is sepsis, ileus and possible aspiration pneumonia Patient is a 80-year-old male with a past medical history significant for atrial fibrillation hypertension hyperlipidemia [place] did have history of Hodgkin lymphoma and prostate cancer splenectomy as a part of staging for the Hodgkin lymphoma back in the 70s presenting to the ER for evaluation of abdominal pain and also have an episode of vomiting and apparently the patient did have diarrhea prior to coming to the hospital patient did have a CT abdominal pelvis concerning for left lower lobe airspace disease and there was also concerning for ileus with initial concern for sepsis secondary to abdominal source. On today's evaluation that is 08/17/2023,the patient denies any fever or any chills, patient is breathing comfortably on room air, the patient denies chest pain shortness of breath and did have cough, patient denies abdominal pain, no nausea vomiting and did have a bowel movement. Patient white count normalized to 9.8, creatinine 0.83 Objective - Vital Signs Vital signs: Vital Signs Temp 97.9 F 08/17/23 13:02 Pulse 88 08/17/23 13:02 Resp 18 08/17/23 13:02 BP 108/67 08/17/23 13:02 Pulse Ox 95 08/17/23 13:02 FiO2 Intake & Output 08/16/23 08/17/23 08/17/23 18:59 06:59 18:59 Intake Total 100 Output Total 1300 Balance 100 -1300 Weight 74.1 kg Intake: Intake, IV Titration 100 Amount Piperacillin-Tazobactam 3 100 .375 gm In Sodium Chloride 0.9% 100 ml @ 25 mls/hr IVPB Q8HR [facility] Rx# :[id number] Output: Urine 1300 Other: # Voids 1 1 1 # Bowel Movements 1 1 - Exam GENERAL DESCRIPTION: An elderly male lying in bed in no distress RESPIRATORY SYSTEM: Unlabored breathing , decreased breath sounds at bases HEART: S1 S2 regular rate and rhythm , ABDOMEN: Soft , slightly tense EXTREMITIES: No edema feet - Labs CBC & Chem 7: 08/17/23 07:50 08/17/23 07:50 Labs: Abnormal Lab Results - Last 24 Hours (Table) 08/16/23 08/17/23 08/17/23 Range/Units 08:10 07:50 07:50 RBC 4.14 L (4.30-5.90) m/uL Hgb 12.2 L (13.0-17.5) gm/dL Hct 38.0 L (39.0-53.0) % Plt Count 599 H (150-450) k/uL Sodium 135 L (137-145) mmol/L Glucose 100 H (74-99) mg/dL Iron 17 L (65-175) UG/DL TIBC 223 L (228-460) UG/DL % Saturation 7.62 L (15.00-50.00) Transferrin 159.0 L (204.0-354.0) mg/dL Assessment and Plan (1) Leukocytosis Current Visit: Yes Status: Acute Code(s): D72.829 - ELEVATED WHITE BLOOD CELL COUNT, UNSPECIFIED SNOMED Code(s): 799468155 (2) Pneumonia Current Visit: Yes Status: Acute Code(s): J18.9 - PNEUMONIA, UNSPECIFIED ORGANISM SNOMED Code(s): 079118244 Plan: 1patient presented hospital with sepsis/septic shock in this patient who did have a fever tachycardia hypotension requiring pressor support patient predominately have abdominal symptoms of pain and did have diarrhea with a recen t diagnosis of colitis and initial concern for possible ischemic versus infectious colitis 2-CT abdominal pelvis also shows evidence of left lower lobe pneumonia and patient did have vomiting before coming to the hospital with question of possible aspiration pneumonia, patient also have evidence of effusion status post thoracocentesis fluid cultures has been negative 3-patient is afebrile and the white count has normalized he will be given a 5- day course of oral Augmentin and Diflucan on discharge discussed with the admitting team working on discharge Dictation was produced using [employer] dictation software. please excuse any grammatical, word or spelling errors. Time with Patient: Less than 30
[2023-08-17 18:35] LABS: Glucose,Whole Blood 101 mg/dL (70-110)
== END 2023-08-17 17:11 | disposition home health service (06) | DRG 871 ==
LOC: EC 05:11 → 2SICU 10:31 → 4SSUR 08-05 01:59
PROVIDERS: ADMIT Internal Medicine; ATTEND Internal Medicine
PROC: 06HY33Z Insertion of Infusion Device into Lower Vein, Percutaneous Approach (ICD-10-PCS; principal; 2023-08-01)
PROC: 3E043XZ Introduction of Vasopressor into Central Vein, Percutaneous Approach (ICD-10-PCS; 2023-08-01)
PROC: 02HV33Z Insertion of Infusion Device into Superior Vena Cava, Percutaneous Approach (ICD-10-PCS; 2023-08-04)
PROC: 0D9670Z Drainage of Stomach with Drainage Device, Via Natural or Artificial Opening (ICD-10-PCS; 2023-08-08)
PROC: 0W993ZX Drainage of Right Pleural Cavity, Percutaneous Approach, Diagnostic (ICD-10-PCS; 2023-08-10)
PROC: 0W9B3ZZ Drainage of Left Pleural Cavity, Percutaneous Approach (ICD-10-PCS; 2023-08-13)
DX: A41.9 Sepsis, unspecified organism (principal); I50.23 Acute on chronic systolic (congestive) heart failure; R57.1 Hypovolemic shock; R65.21 Severe sepsis with septic shock; J15.69 Pneumonia due to other Gram-negative bacteria; D84.9 Immunodeficiency, unspecified; R64 Cachexia; K55.9 Vascular disorder of intestine, unspecified; I42.9 Cardiomyopathy, unspecified; R18.8 Other ascites; J91.8 Pleural effusion in other conditions classified elsewhere; K56.7 Ileus, unspecified; E87.1 Hypo-osmolality and hyponatremia; I25.810 Atherosclerosis of coronary artery bypass graft(s) without angina pectoris; I48.20 Chronic atrial fibrillation, unspecified; J98.11 Atelectasis; I11.0 Hypertensive heart disease with heart failure; D64.9 Anemia, unspecified; D75.838 Other thrombocytosis; E03.9 Hypothyroidism, unspecified; E78.5 Hyperlipidemia, unspecified; E86.0 Dehydration; E86.1 Hypovolemia; E87.6 Hypokalemia; I25.10 Atherosclerotic heart disease of native coronary artery without angina pectoris; I25.2 Old myocardial infarction; Z79.82 Long term (current) use of aspirin; Z79.890 Hormone replacement therapy; Z79.899 Other long term (current) drug therapy; Z90.81 Acquired absence of spleen; K44.9 Diaphragmatic hernia without obstruction or gangrene; M62.50 Muscle wasting and atrophy, not elsewhere classified, unspecified site; Z53.20 Procedure and treatment not carried out because of patient's decision for unspecified reasons; Z85.46 Personal history of malignant neoplasm of prostate; Z85.71 Personal history of Hodgkin lymphoma; Z92.21 Personal history of antineoplastic chemotherapy; Z92.3 Personal history of irradiation; Z95.810 Presence of automatic (implantable) cardiac defibrillator; Z96.642 Presence of left artificial hip joint; Z95.1 Presence of aortocoronary bypass graft; Z71.3 Dietary counseling and surveillance
CPT/HCPCS: 36415; 36556; 36573; 71045; 74018; 74176; 74177; 76604; 80048; 80053; 81003; 82150; 82728; 82945; 83540; 83550; 83605; 83615; 83690; 83735; 84100; 84145; 84157; 84484; 85025; 85027; 86140; 87040; 87070; 87086; 87102; 87116; 87205; 87206; 87449; 87636; 88108; 88305; 93306; 94640; 96365; 96366; 96368; 99291

== ENCOUNTER 2023-08-20 06:44 | Inpatient (IN) | payer MEDICARE, BC ==
[2023-08-20] MEDS ORDERED: ONDANSETRON 4 MG/2 ML VIAL IVP STA (07:34)
[2023-08-20 07:36] LABS: ALT 35 U/L (4-49); AST 60 U/L (17-59); African American GFR (CKD) 89 (>60 ml/min/1.73 sqM); Albumin 3.4 g/dL (3.5-5.0); Alkaline Phosphatase 123 U/L (38-126); Anion Gap 12 mmol/L; Blood Urea Nitrogen 20 mg/dL (9-20); Calcium 9.6 mg/dL (8.4-10.2); Carbon Dioxide 26 mmol/L (22-30); Chloride 97 mmol/L (98-107); Glucose 110 mg/dL (74-99); Non-African American GFR(CKD) 77 (>60 ml/min/1.73 sqM); Sodium 135 mmol/L (137-145); Total Bilirubin 0.8 mg/dL (0.2-1.3); Total Protein 6.7 g/dL (6.3-8.2)
[2023-08-20 07:39] LABS: Potassium 4.2 mmol/L (3.5-5.1)
[2023-08-20] MEDS: ONDANSETRON 4 MG/2 ML VIAL IVP STA (07:47)
[2023-08-20] MEDS: SODIUM CHLORIDE 0.9% 1,000 ML IV SCH (07:47)
[2023-08-20 07:58] LABS: Prothrombin Time 11.3 sec (10.0-12.5)
[2023-08-20 08:07] LABS: Basophils % (A) 0 %; Eosinophils # (A) 0.1 k/uL (0-0.7); Eosinophils % (A) 1 %; HCT 40.9 % (39.0-53.0); HGB 13.3 gm/dL (13.0-17.5); Lymphocytes # (A) 1.1 k/uL (1.0-4.8); Lymphocytes % (A) 12 %; MCH 28.8 pg (25.0-35.0); MCHC 32.4 g/dL (31.0-37.0); MCV 88.9 fL (80.0-100.0); Mean Platelet Volume 8.9; Monocytes # (A) 0.5 k/uL (0-1.0); Monocytes % (A) 5 %; Neutrophils # (A) 7.7 k/uL (1.3-7.7); Neutrophils % (A) 81 %; Platelet Count 514 k/uL (150-450); RDW 15.3 % (11.5-15.5); WBC 9.6 k/uL (3.8-10.6)
--- NOTE | 2023-08-20 08:52 | XR ---
EXAMINATION TYPE: XR KUB DATE OF EXAM: 08/20/2023 8:18 AM CLINICAL INDICATION:Male, 72 years old with history of bowel obstruction; [facility] COMPARISON: CT 08/10/2023, one view x-ray abdomen and CT 08/08/2023 TECHNIQUE: 3 views of the abdomen and pelvis obtained upright on cart and supine FINDINGS: Heart appears enlarged. Sternotomy wires and partially seen AICD with lead terminating over the right ventricle, sternotomy wires and mediastinal clips. Bibasilar opacities greater on the left, suggesti ng pleural effusions with atelectasis/airspace disease. No evidence of pneumoperitoneum or portal venous gas. Multiple surgical clips and sutures seen over t he abdomen and pelvis. There is some radiodensity in the right colon and rectum consistent with previ ous contrast administration. Moderate amount of stool and gas in the colon and possibly some gas-dist ended small bowel in the left abdomen. No suspicious calcifications or radiopaque foreign bodies. Mon itor leads over the field of view. Degenerative changes of the spine and right hip. Left hip arthropl asty with dystrophic calcification about the left hip. Surgical clips left inguinal region. IMPRESSION: 1. Nonspecific bowel gas pattern, may suggest fecal stasis/ileus, versus a partial small bowel obstr uction. If concern persists, consider follow-up radiographs and/or CT. 2. No evidence of pneumoperitoneum. 3. Cardiomegaly and postoperative changes. Bibasilar pleural effusions and atelectasis/airspace dise ase, greatest on the left.
[2023-08-20] MEDS ORDERED: NALOXONE 0.4 MG/ML 1 ML VIAL IV PRN (09:22)
--- NOTE | 2023-08-20 09:22 | ED ---
General Adult HPI - General Chief complaint: Nausea/Vomiting/Diarrhea Stated complaint: Vomiting Time Seen by Provider: 08/20/23 06:57 Source: family Mode of arrival: ambulatory Limitations: no limitations - History of Present Illness Initial comments: 72-year-old man with history of Hodgkin's lymphoma status post splenectomy, A- fib, recent small bowel obstruction who presents to the emergency department with nausea vomiting. Family is at bedside and helps provide the history. States that the patient was just discharged on . Patient was fine on Monday. Monday the patient began vomiting again. He has had numerous episodes of vomiting and has been unable to hold down any food or drink. He has not had any bowel movements over the weekend. No fevers. He denies having any abdominal pain at this time. No black or bloody stools. No hematemesis. No other alleviating, precipitating modifying factors - Related Data Home Medications Medication Instructions Recorded Confirmed Aspirin [Adult Low Dose Aspirin EC] 162 mg PO DAILY 07/12/17 08/20/23 Levothyroxine Sodium [Synthroid] 100 mcg PO DAILY 07/12/17 08/20/23 Benazepril [Lotensin] 5 mg PO HS 02/04/20 08/20/23 Tamsulosin [Flomax] 0.4 mg PO HS 11/02/20 08/20/23 Atorvastatin [Lipitor] 40 mg PO HS 06/11/21 08/20/23 Spironolactone [Aldactone] 50 mg PO DAILY 07/24/23 08/20/23 Ferrous Sulfate [Iron (65 MG 325 mg PO Q2D 08/01/23 08/20/23 Elemental)] Previous Rx's Medication Instructions Recorded Famotidine [Pepcid] 20 mg PO BID #30 tablet 07/28/23 Amoxic-Pot Clav 875-125Mg 1 tab PO Q12HR 5 Days #10 tab 08/17/23 [Augmentin 875-125] Fluconazole [Diflucan] 200 mg PO DAILY #5 tablet 08/17/23 Furosemide [Lasix] 40 mg PO DAILY #7 tablet 08/17/23 Metoprolol Tartrate [Lopressor] 12.5 mg PO BID #60 tab 08/17/23 Potassium Chloride 10 meq PO DAILY #7 cap 08/17/23 Allergies Allergy/AdvReac Type Severity Reaction Status Date / Time bee venom protein (honey bee) AdvReac Severe Rash/Hives Verified 08/20/23 12:52 amoxicillin AdvReac Diarrhea Verified 08/20/23 12:52 Review of Systems ROS Statement: Those systems with pertinent positive or pertinent negative responses have been documented in the HPI. ROS Other: All systems not noted in ROS Statement are negative. Past Medical History Past Medical History: Atrial Fibrillation, Cancer, Hyperlipidemia, Myocardial Infarction ([place]), Thyroid Disorder Additional Past Medical History / Comment(s): HODGKIN LYMPHOMA RADIATION & CHEMO [place] ), PROSTATE CANCER (JUN 2020). Last Myocardial Infarction Date:: 2011 History of Any Multi-Drug Resistant Organisms: None Reported Past Surgical History: Coronary Bypass/CABG, Heart Catheterization, Joint Replacement, Orthopedic Surgery Additional Past Surgical History / Comment(s): SPLEENECTOMY, TOTAL LEFT HIP (2004) Past Anesthesia/Blood Transfusion Reactions: No Reported Reaction Type of Cardiac Device: AICD Device Placement Date:: Past Psychological History: No Psychological Hx Reported Smoking Status: Never smoker Past Alcohol Use History: None Reported Past Drug Use History: None Reported - Past Family History Sister(s) Family Medical History: Cancer Additional Family Medical History / Comment(s): OVARIAN CANCER family Family Medical History: Coronary Artery Disease (CAD) General Exam Limitations: no limitations General appearance: alert, in no apparent distress Head exam: Present: atraumatic, normocephalic, normal inspection Eye exam: Present: normal appearance, PERRL, EOMI. Absent: scleral icterus, conjunctival injection, periorbital swelling ENT exam: Present: normal exam, mucous membranes moist Neck exam: Present: normal inspection. Absent: tenderness, meningismus, lymphadenopathy Respiratory exam: Present: normal lung sounds bilaterally. Absent: respiratory distress, wheezes, rales, rhonchi, stridor Cardiovascular Exam: Present: regular rate, normal rhythm, normal heart sounds. Absent: systolic murmur, diastolic murmur, rubs, gallop, clicks GI/Abdominal exam: Present: distended, diminished bowel sounds. Absent: tendern ess, guarding, rebound, rigid Extremities exam: Present: normal inspection, full ROM, normal capillary refill. Absent: tenderness, pedal edema, joint swelling, calf tenderness Back exam: Present: normal inspection Neurological exam: Present: alert, oriented X3, CN II-XII intact Psychiatric exam: Present: normal affect, normal mood Skin exam: Present: warm, dry, intact, normal color. Absent: rash Course Vital Signs 08/20/23 08/20/23 08/20/23 06:49 07:48 09:47 Temperature 97.7 F Pulse Rate 107 H 97 95 Respiratory 16 18 18 Rate Blood Pressure 97/62 114/72 118/69 O2 Sat by Pulse 95 94 L 96 Oximetry 08/20/23 08/20/23 08/20/23 11:00 12:00 13:00 Temperature Pulse Rate 100 109 H 126 H Respiratory 20 18 18 Rate Blood Pressure 110/75 124/83 140/98 O2 Sat by Pulse 95 98 98 Oximetry 08/20/23 08/20/23 08/20/23 14:00 15:00 17:21 Temperature 97.8 F Pulse Rate 126 H 114 H 112 H Respiratory 18 18 18 Rate Blood Pressure 123/76 109/68 108/73 O2 Sat by Pulse 94 L 94 L 95 Oximetry Medical Decision Making - Medical Decision Making Was pt. sent in by a medical professional or institution (OCTAVIO Badillo, [employer], urgent care, hospital, or long-term...) When possible be specific @ -No Did you speak to anyone other than the patient for history (EMS, parent, family, police, friend...)? What history was obtained from this source @ -Spoke with the patient's family for history Did you review nursing and triage notes (agree or disagree)? Why? @ -I reviewed and agree with nursing and triage notes Were old charts reviewed (outside hosp., previous admission, EMS record, old EKG, old radiological studies, urgent care reports/EKG's, long-term records)? Report findings @ -I reviewed the patient's discharge summary from Differential Diagnosis (chest pain, altered mental status, abdominal pain women, abdominal pain men, vaginal bleeding, weakness, fever, dyspnea, syncope, headache, dizziness, GI bleed, back pain, seizure, CVA, palpatations, mental health, musculoskeletal)? @ -Differential Abdominal Pain Men: Appendicitis, cholecystitis, diverticulosis, ischemic bowel, pancreatitis, hepatitis, UTI, gastroenteritis, AAA, incarcerated hernia, bowel obstruction, constipation, inflammatory bowel, hepatitis, peptic ulcer disease, splenic infarction, perforated viscus, testicular torsion, this is not meant to be an all-inclusive list EKG interpreted by me (3pts min.). @ -Yes and demonstrates sinus tachycardia with a rate of 103. NV interval 189. QRS 110. QTc of 434. No acute ST segment elevations or depressions X-rays interpreted by me (1pt min.). @ -Yes and demonstrates concern for bowel obstruction CT interpreted by me (1pt min.). @ -None done U/S interpreted by me (1pt. min.). @ -None done What testing was considered but not performed or refused? (CT, X-rays, U/S, labs)? Why? @ -CT was considered however patient has had several CTs within the past couple of weeks. Attempting to save the patient some radiation What meds were considered but not given or refused? Why? @ -None Did you discuss the management of the patient with other professionals (bri gonzales i.e. , PA, [employer], lab, RT, psych nurse, social media community manager, concrete truck driver, teacher, disability hearing officer, residential case manager)? Give summary @ -Spoke with Dr. Johnson Was smoking cessation discussed for >3mins.? @ -No Was critical care preformed (if so, how long)? @ -No Were there social determinants of health that impacted care today? How? (Homelessness, low income, unemployed, alcoholism, drug addiction, tra nsportation, low edu. Level, literacy, decrease access to med. care, long-term, rehab)? @ -No Was there de-escalation of care discussed even if they declined (Discuss DNR or withdrawal of care, Hospice)? DNR status @ -No What co-morbidities impacted this encounter? (DM, HTN, Smoking, COPD, CAD, Cancer, CVA, ARF, Chemo, Hep., AIDS, mental health diagnosis, sleep apnea, morbid obesity)? @ -Hodgkin's lymphoma with splenectomy Was patient admitted / discharged? Hospital course, mention meds given and route, prescriptions, significant lab abnormalities, going to OR and other pertinent info. @ -Upon arrival patient was placed into room 20. Thorough history and physical exam was performed. Patient has intractable vomiting. Laboratory studies are conducted and a KUB is performed. There is concern for bowel obstruction. NG tube was placed. Recommended admission with surgical consult. Spoke with Dr. Larson for admission Undiagnosed new problem with uncertain prognosis? @ -No Drug Therapy requiring intensive monitoring for toxicity (Heparin, Nitro, Insulin, Cardizem)? @ -No Were any procedures done? @ -NG tube placement Diagnosis/symptom? @ -Acute abdominal pain, intractable nausea vomiting, small bowel obstruction Acute, or Chronic, or Acute on Chronic? @ -Acute Uncomplicated (without systemic symptoms) or Complicated (systemic symptoms)? @ -Complicated Side effects of treatment? @ -No Exacerbation, Progression, or Severe Exacerbation? @ -No Poses a threat to life or bodily function? How? (Chest pain, [place], [place], pneumonia, PE, COPD, DKA, ARF, appy, cholecystitis, CVA, Diverticulitis, Homicidal, Suicidal, threat to staff... and all critical care pts) @ -Yes patient has intractable vomiting with concern for another small bowel obstruction - Lab Data Result diagrams: 08/21/23 05:42 08/21/23 05:42 Lab Results 08/20/23 08/20/23 08/20/23 Range/Units 07:09 07:09 07:09 WBC 9.6 (3.8-10.6) k/uL RBC 4.60 (4.30-5.90) m/uL Hgb 13.3 (13.0-17.5) gm/dL Hct 40.9 (39.0-53.0) % MCV 88.9 (80.0-100.0) fL MCH 28.8 (25.0-35.0) pg MCHC 32.4 (31.0-37.0) g/dL RDW 15.3 (11.5-15.5) % Plt Count 514 H (150-450) k/uL MPV 8.9 Neutrophils % 81 % Lymphocytes % 12 % Monocytes % 5 % Eosinophils % 1 % Basophils % 0 % Neutrophils # 7.7 (1.3-7.7) k/uL Lymphocytes # 1.1 (1.0-4.8) k/uL Monocytes # 0.5 (0-1.0) k/uL Eosinophils # 0.1 (0-0.7) k/uL Basophils # 0.0 (0-0.2) k/uL PT (10.0-12.5) sec INR (<1.2) APTT (22.0-30.0) sec Sodium 135 L (137-145) mmol/L Potassium 4.2 (3.5-5.1) mmol/L Chloride 97 L (98-107) mmol/L Carbon Dioxide 26 (22-30) mmol/L Anion Gap 12 mmol/L BUN 20 (9-20) mg/dL Creatinine 0.99 (0.66-1.25) mg/dL Est GFR (CKD-EPI)AfAm 89 (>60 ml/min/1.73 sqM) Est GFR (CKD-EPI)NonAf 77 (>60 ml/min/1.73 sqM) Glucose 110 H (74-99) mg/dL Lactic Ac Sepsis Rflx Plasma Lactic Acid Vicente 2.3 H* (0.7-2.0) mmol/L Calcium 9.6 (8.4-10.2) mg/dL Magnesium 2.0 (1.6-2.3) mg/dL Total Bilirubin 0.8 (0.2-1.3) mg/dL AST 60 H (17-59) U/L ALT 35 (4-49) U/L Alkaline Phosphatase 123 (38-126) U/L Total Protein 6.7 (6.3-8.2) g/dL Albumin 3.4 L (3.5-5.0) g/dL 08/20/23 08/20/23 Range/Units 07:09 07:41 WBC (3.8-10.6) k/uL RBC (4.30-5.90) m/uL Hgb (13.0-17.5) gm/dL Hct (39.0-53.0) % MCV (80.0-100.0) fL MCH (25.0-35.0) pg MCHC (31.0-37.0) g/dL RDW (11.5-15.5) % Plt Count (150-450) k/uL MPV Neutrophils % % Lymphocytes % % Monocytes % % Eosinophils % % Basophils % % Neutrophils # (1.3-7.7) k/uL Lymphocytes # (1.0-4.8) k/uL Monocytes # (0-1.0) k/uL Eosinophils # (0-0.7) k/uL Basophils # (0-0.2) k/uL PT 11.3 (10.0-12.5) sec INR 1.0 (<1.2) APTT 24.0 (22.0-30.0) sec Sodium (137-145) mmol/L Potassium (3.5-5.1) mmol/L Chloride (98-107) mmol/L Carbon Dioxide (22-30) mmol/L Anion Gap mmol/L BUN (9-20) mg/dL Creatinine (0.66-1.25) mg/dL Est GFR (CKD-EPI)AfAm (>60 ml/min/1.73 sqM) Est GFR (CKD-EPI)NonAf (>60 ml/min/1.73 sqM) Glucose (74-99) mg/dL Lactic Ac Sepsis Rflx Y Plasma Lactic Acid Vicente (0.7-2.0) mmol/L Calcium (8.4-10.2) mg/dL Magnesium (1.6-2.3) mg/dL Total Bilirubin (0.2-1.3) mg/dL AST (17-59) U/L ALT (4-49) U/L Alkaline Phosphatase (38-126) U/L Total Protein (6.3-8.2) g/dL Albumin (3.5-5.0) g/dL Disposition Clinical Impression: SBO (small bowel obstruction), Vomiting Disposition[facility] Condition: Serious Is patient prescribed a controlled substance at d/c from ED?: No Time of Disposition: : Decision to Admit Reason: Admit from EC Decision Date: 08/20/23 Decision Time: :22
--- NOTE | 2023-08-20 09:22 | XR ---
EXAMINATION TYPE: XR chest 1V confirm line plcmt DATE OF EXAM: 08/20/2023 9:09 AM CLINICAL INDICATION:Male, 72 years old with history of NG; [facility] COMPARISON: KUB earlier today at 8:12 AM TECHNIQUE: XR chest 1V confirm line plcmt Portable AP radiograph of the chest.. Exam is limited, centered over the left upper quadrant for line placement. FINDINGS: What is believed to be an NG tube is seen extending craniocaudally over the mediastinum, however the distal tip is not seen beyond the level of the mid heart, below the holly and well above the diaphra gm. Cardiomegaly with postoperative changes and bibasilar pleural/parenchymal opacities redemonstrated. V isualized bowel gas pattern appears unchanged from prior. Grossly stable appearance of osseous struct ures. IMPRESSION: Placement of NG tube, likely terminates over the mid to distal esophagus. Recommend several centimete rs of advancement, followed by reimaging.
--- NOTE | 2023-08-20 09:43 | XR ---
EXAMINATION TYPE: XR chest 1V confirm line plcmt DATE OF EXAM: 08/20/2023 9:36 AM CLINICAL INDICATION:Male, 72 years old with history of ng placement; [facility] COMPARISON: X-ray earlier today 9:02 AM, and older exams TECHNIQUE: XR chest 1V confirm line plcmt Portable AP radiograph of the chest.. Limited study, centered over the left upper quadrant for line placement FINDINGS: NG tube has been advanced, now courses over the left then right upper quadrant with tip over the caren aryan outlet or proximal duodenum. Remainder of exam is unchanged. IMPRESSION: 1. NG tube has been advanced, now terminates in the right upper quadrant likely over the gastric out let or proximal duodenum. 2. Remainder of exam is unchanged.
[2023-08-20] MEDS: diphenhydrAMINE 50 MG/ML 1 ML VIAL IVP STA (10:18)
[2023-08-20] MEDS: METOCLOPRAMIDE 5 MG/ML 2 ML VIAL IVP STA (10:23)
[2023-08-20] MEDS ORDERED: MELATONIN 3 MG TABLET PO PRN (10:45)
[2023-08-20] MEDS ORDERED: BENZOCAINE/MENTHOL LOZENG 1 EACH LOZENGE MUCOUS MEM PRN (10:45)
--- NOTE | 2023-08-20 10:58 | P.HPIM ---
History of Present Illness H&P Date: 08/20/23 Patient is a 72-year-old male with a history of Hodgkin's lymphoma status post chemo radiation and splenectomy in the 1970s, atrial fibrillation, dyslipidemia, coronary artery disease with myocardial infarction and coronary artery bypass surgery, and prostate cancer who presented to the emergency department with complaints of nausea and vomiting. Patient was hospitalized here from 08/01/23 through 08/17/23 for ileus and possible pneumonia. He was treated conservatively. On arrival to the ER he was tachycardic with a pulse of 107. Laboratory in the ER consisted of CBC, coags, and CMP and was remarkable for sodium 135, lactic acid 2.3, and AST of 60. Abdominal x-ray was consistent with ileus. NG tube was placed. Arrangements were made for admission. Patient seen and examined at bedside. He reports that he was doing well initially and Monday he started having a small amount of vomiting. This has worsened and he has had approximately 12-14 episodes of vomiting. He has not had a bowel movement since Monday. He is having a slight amount of abdominal pain. Since leaving the hospital he has only had soup and oatmeal. He denies any cough or shortness of breath at home but has not had a cough since the NG tube was placed. He has had worsening lower extremity dependent edema. He is continued to have some left upper extremity edema. He has been unable to tolerate his Lasix pills or fluconazole at home. Vital signs reviewed General: nontoxic, no distress, appears at stated age Derm: warm, dry Eyes: EOMI, no lid lag, anicteric sclera, pupils equal round reactive to light ENT: Nose and ears atraumatic Cardiovascular: S1S2 reg, no murmur, no edema Lungs: clear to auscultation bilateral, no rhonchi, no rales, no wheeze, no accessory muscle use Abdominal: soft, nontender to palpation, no guarding Ext: no gross muscle atrophy, no contractures Neuro: CN II-XII grossly intact, No focal neuro deficits Psych: Alert, oriented, appropriate affect Assessment/Plan: Ileus vs small bowel obstruction lactic acidosis - NGT in place - consult surgery - antiemetics, pain control normal saline at 75 cc/h - N.p.o. - complete diflucan course from prior hospital stay #06/28. - check CT abd and pelvis Acute on chronic systolic CHF, EF 30 to 35% -Lopressor 12.5 mg twice daily, lisinopril 5 mg daily, Aldactone 50 mg daily Thrombocytosis, reactive -follow CBC Chronic: Atrial fibrillation Coronary artery disease with history of myocardial infarction status post coronary artery bypass grafting Hypothyroidism Dyslipidemia Imaging: As per HPI Data Review: As per HPI The patient is admitted with an anticipated greater than 2 midnight stay for evaluation of [ileus]. Surrogate decision-maker: Brother DVT prophylaxis: SCDs Anticipated discharge date: Pending Clinical Course Anticipated discharge place: Pending Clinical Course This dictation was prepared using [employer] voice recognition software. Though every attempt is made to correct errors during dictation some may still exist. Past Medical History Past Medical History: Atrial Fibrillation, Cancer, Heart Failure, Hyperlipidemia, Myocardial Infarction ([place]), Thyroid Disorder Additional Past Medical History / Comment(s): HODGKIN LYMPHOMA RADIATION & CHEMO [place] [id number]), PROSTATE CANCER (JUN 2020). Last Myocardial Infarction Date:: 2011 History of Any Multi-Drug Resistant Organisms: None Reported Past Surgical History: Coronary Bypass/CABG, Heart Catheterization, Joint Replacement, Orthopedic Surgery Additional Past Surgical History / Comment(s): SPLEENECTOMY, TOTAL LEFT HIP (2004) Past Anesthesia/Blood Transfusion Reactions: No Reported Reaction Type of Cardiac Device: AICD Device Placement Date:: Past Psychological History: No Psychological Hx Reported Smoking Status: Never smoker Past Alcohol Use History: None Reported Past Drug Use History: None Reported - Past Family History Sister(s) Family Medical History: Cancer Additional Family Medical History / Comment(s): OVARIAN CANCER family Family Medical History: Coronary Artery Disease (CAD) Medications and Allergies Home Medications Medication Instructions Recorded Confirmed Type Aspirin [Adult Low Dose Aspirin EC] 162 mg PO DAILY 07/12/17 08/01/23 History Levothyroxine Sodium [Synthroid] 100 mcg PO DAILY 07/12/17 08/01/23 History Benazepril [Lotensin] 5 mg PO HS 02/04/20 08/01/23 History Tamsulosin [Flomax] 0.4 mg PO HS 11/02/20 08/01/23 History Atorvastatin [Lipitor] 40 mg PO HS 06/11/21 08/01/23 History Spironolactone [Aldactone] 50 mg PO DAILY 07/24/23 08/01/23 History Famotidine [Pepcid] 20 mg PO BID #30 tablet 07/28/23 08/01/23 Rx Ferrous Sulfate [Iron (65 MG 325 mg PO Q2D 08/01/23 08/01/23 History Elemental)] Amoxic-Pot Clav 875-125Mg 1 tab PO Q12HR 5 Days #10 tab 08/17/23 Rx [Augmentin 875-125] Fluconazole [Diflucan] 200 mg PO DAILY #5 tablet 08/17/23 Rx Furosemide [Lasix] 40 mg PO DAILY #7 tablet 08/17/23 Rx Metoprolol Tartrate [Lopressor] 12.5 mg PO BID #60 tab 08/17/23 Rx Potassium Chloride 10 meq PO DAILY #7 cap 08/17/23 Rx Allergies Allergy/AdvReac Type Severity Reaction Status Date / Time bee venom protein (honey bee) AdvReac Severe Rash/Hives Verified 08/01/23 10:47 amoxicillin AdvReac Diarrhea Verified 08/20/23 06:50 Physical Exam Osteopathic Statement: *. No significant issues noted on an osteopathic structural exam other than those noted in the History and Physical/Consult. Vitals: Vital Signs Temp Pulse Resp BP Pulse Ox 08/20/23 09:47 95 18 118/69 96 08/20/23 07:48 97 18 114/72 94 L 08/20/23 06:49 97.7 F 107 H 16 97/62 95 Intake and Output 08/19/23 08/20/23 08/20/23 22:59 06:59 14:59 Other: Weight 68.039 kg Results CBC & Chem 7: 08/20/23 07:09 08/20/23 07:09 Labs: Abnormal Lab Results - Last 24 Hours (Table) 08/20/23 08/20/23 08/20/23 Range/Units 07:09 07:09 07:09 Plt Count 514 H (150-450) k/uL Sodium 135 L (137-145) mmol/L Chloride 97 L (98-107) mmol/L Glucose 110 H (74-99) mg/dL Plasma Lactic Acid Vicente 2.3 H* (0.7-2.0) mmol/L AST 60 H (17-59) U/L Albumin 3.4 L (3.5-5.0) g/dL
--- NOTE | 2023-08-20 11:45 | CT ---
EXAMINATION TYPE: CT abdomen pelvis wo con CT DLP: 860.90 mGycm, Automated exposure control for dose reduction was used. DATE OF EXAM: 08/20/2023 11:31 AM COMPARISON: 08/10/2023 CLINICAL INDICATION:Male, 72 years old with history of obstruction; Intractable nausea, vomiting, sma ll bowel obstruction. TECHNIQUE: Axial CT abdomen pelvis wo con;Sagittal and coronal reformats were created on a separate workstation. Contrast used: mL of , (none if empty) Oral contrast used: without Oral Contrast (none if empty) FINDINGS: LOWER CHEST: Small to moderate bilateral pleural effusions with associated atelectasis on the left. C onduction device noted. Sternotomy wires are present sternotomy wires and leads terminating in the ri ght ventricle and right atrium. Severe coronary artery calcifications. ABDOMEN LIVER: Unremarkable GALLBLADDER AND BILE DUCTS: Unremarkable. PANCREAS: Unremarkable. SPLEEN: Unremarkable. ADRENAL GLANDS: Unremarkable. KIDNEYS AND URETERS: No evidence of hydronephrosis or renal calculus. The ureters are unremarkable. PELVIS BLADDER: Unremarkable REPRODUCTIVE: Unremarkable. ABDOMEN & PELVIS STOMACH AND BOWEL: No evidence of bowel obstruction. Nasogastric tube terminates in the gastric lumen . High density contrast is seen within the colon extending to the rectum. PERITONEUM/RETROPERITONEUM: No evidence of pneumoperitoneum. Trace abdominal ascites. VASCULATURE: No evidence of aortic aneurysm. MUSCULOSKELETAL: No acute osseous abnormalities. Left hip arthroplasty changes with hardware intact. Cerclage wire also present. LYMPH NODES: No gross evidence for lymphadenopathy. SOFT TISSUE/ABDOMINAL WALL: Anasarca of the soft tissues. Anterior abdominal wall surgical clips/sutu re. IMPRESSION: High density contrast extends to the rectum. This suggests no complete obstruction present. This coul d still mean is a partial obstruction versus ileus.
[2023-08-20] MEDS: FERROUS SULFATE 325 MG TAB PO SCH (14:22)
[2023-08-20] MEDS: FLUCONAZOLE 100 MG TAB PO SCH (14:22)
[2023-08-20] MEDS: FAMOTIDINE 20 MG TAB PO SCH (14:22)
--- NOTE | 2023-08-20 14:46 | XR ---
EXAMINATION TYPE: XR chest 1V confirm line plcmt DATE OF EXAM: 08/20/2023 2:36 PM CLINICAL INDICATION:Male, 72 years old with history of NG placement; [facility] COMPARISON: Radiograph 08/20/2023. TECHNIQUE: XR chest 1V confirm line plcmt Frontal view of the chest. FINDINGS: Redemonstrated partially visualized nonspecific bowel gas pattern. Cardiac conduction device is noted overlying the left chest leads intact. Enteric tube can be seen coursing below the level the diaphragm and terminating in the area of the st omach. IMPRESSION: Appropriately positioned enteric tube.
--- NOTE | 2023-08-20 16:05 | P.GSCN ---
History of Present Illness Consult date: 08/20/23 History of present illness: Recently discharged less than 3 days ago with abdominal pain suspected ischemic colitis. Patient treated conservatively. Information obtained from family at bedside. Patient had only tolerated 1 day of full liquid diet however not regular diet. He then developed progressive abdominal distention nausea and vomiting. Since admission to the ER, overall 1+ liter of bilious aspirate from the stomach. On exam, no diffuse peritonitis. Continue NG tube. Inpatient hospitalization described. IV fluid hydration advised. May benefit from upper GI small bowel follow-through. Past Medical History Past Medical History: Atrial Fibrillation, Cancer, Hyperlipidemia, Myocardial Infarction ([place]), Thyroid Disorder Additional Past Medical History / Comment(s): [facility] LYMPHOMA RADIATION & CHEMO [place] [id number]), PROSTATE CANCER (JUN 2020). Last Myocardial Infarction Date:: 2011 History of Any Multi-Drug Resistant Organisms: None Reported Past Surgical History: Coronary Bypass/CABG, Heart Catheterization, Joint Replacement, Orthopedic Surgery Additional Past Surgical History / Comment(s): SPLEENECTOMY, TOTAL LEFT HIP (2004) Past Anesthesia/Blood Transfusion Reactions: No Reported Reaction Type of Cardiac Device: AICD Device Placement Date:: Past Psychological History: No Psychological Hx Reported Smoking Status: Never smoker Past Alcohol Use History: None Reported Past Drug Use History: None Reported - Past Family History Sister(s) Family Medical History: Cancer Additional Family Medical History / Comment(s): OVARIAN CANCER family Family Medical History: Coronary Artery Disease (CAD) Medications and Allergies Home Medications Medication Instructions Recorded Confirmed Type Aspirin [Adult Low Dose Aspirin EC] 162 mg PO DAILY 07/12/17 08/20/23 History Levothyroxine Sodium [Synthroid] 100 mcg PO DAILY 07/12/17 08/20/23 History Benazepril [Lotensin] 5 mg PO HS 02/04/20 08/20/23 History Tamsulosin [Flomax] 0.4 mg PO HS 11/02/20 08/20/23 History Atorvastatin [Lipitor] 40 mg PO HS 06/11/21 08/20/23 History Spironolactone [Aldactone] 50 mg PO DAILY 07/24/23 08/20/23 History Famotidine [Pepcid] 20 mg PO BID #30 tablet 07/28/23 08/20/23 Rx Ferrous Sulfate [Iron (65 MG 325 mg PO Q2D 08/01/23 08/20/23 History Elemental)] Amoxic-Pot Clav 875-125Mg 1 tab PO Q12HR 5 Days #10 tab 08/17/23 08/20/23 Rx [Augmentin 875-125] Fluconazole [Diflucan] 200 mg PO DAILY #5 tablet 08/17/23 08/20/23 Rx Furosemide [Lasix] 40 mg PO DAILY #7 tablet 08/17/23 08/20/23 Rx Metoprolol Tartrate [Lopressor] 12.5 mg PO BID #60 tab 08/17/23 08/20/23 Rx Potassium Chloride 10 meq PO DAILY #7 cap 08/17/23 08/20/23 Rx Allergies Allergy/AdvReac Type Severity Reaction Status Date / Time bee venom protein (honey bee) AdvReac Severe Rash/Hives Verified 08/20/23 12:52 amoxicillin AdvReac Diarrhea Verified 08/20/23 12:52 Surgical - Exam Vital Signs Temp Pulse Resp BP Pulse Ox 97.7 F 107 H 16 97/62 95 08/20/23 06:49 08/20/23 06:49 08/20/23 06:49 08/20/23 06:49 08/20/23 06:49 Results - Labs 08/20/23 07:09 08/20/23 07:09 Abnormal Lab Results - Last 24 Hours (Table) 08/20/23 08/20/23 08/20/23 Range/Units 07:09 07:09 07:09 Plt Count 514 H (150-450) k/uL Sodium 135 L (137-145) mmol/L Chloride 97 L (98-107) mmol/L Glucose 110 H (74-99) mg/dL Plasma Lactic Acid Vicente 2.3 H* (0.7-2.0) mmol/L AST 60 H (17-59) U/L Albumin 3.4 L (3.5-5.0) g/dL Diabetes panel 08/20/23 Range/Units 07:09 Sodium 135 L (137-145) mmol/L Potassium 4.2 (3.5-5.1) mmol/L Chloride 97 L (98-107) mmol/L Carbon Dioxide 26 (22-30) mmol/L BUN 20 (9-20) mg/dL Creatinine 0.99 (0.66-1.25) mg/dL Glucose 110 H (74-99) mg/dL Calcium 9.6 (8.4-10.2) mg/dL AST 60 H (17-59) U/L ALT 35 (4-49) U/L Alkaline Phosphatase 123 (38-126) U/L Total Protein 6.7 (6.3-8.2) g/dL Albumin 3.4 L (3.5-5.0) g/dL Calcium panel 08/20/23 Range/Units 07:09 Calcium 9.6 (8.4-10.2) mg/dL Albumin 3.4 L (3.5-5.0) g/dL Pituitary panel 08/20/23 Range/Units 07:09 Sodium 135 L (137-145) mmol/L Potassium 4.2 (3.5-5.1) mmol/L Chloride 97 L (98-107) mmol/L Carbon Dioxide 26 (22-30) mmol/L BUN 20 (9-20) mg/dL Creatinine 0.99 (0.66-1.25) mg/dL Glucose 110 H (74-99) mg/dL Calcium 9.6 (8.4-10.2) mg/dL Adrenal panel 08/20/23 Range/Units 07:09 Sodium 135 L (137-145) mmol/L Potassium 4.2 (3.5-5.1) mmol/L Chloride 97 L (98-107) mmol/L Carbon Dioxide 26 (22-30) mmol/L BUN 20 (9-20) mg/dL Creatinine 0.99 (0.66-1.25) mg/dL Glucose 110 H (74-99) mg/dL Calcium 9.6 (8.4-10.2) mg/dL Total Bilirubin 0.8 (0.2-1.3) mg/dL AST 60 H (17-59) U/L ALT 35 (4-49) U/L Alkaline Phosphatase 123 (38-126) U/L Total Protein 6.7 (6.3-8.2) g/dL Albumin 3.4 L (3.5-5.0) g/dL
[2023-08-20] MEDS: TAMSULOSIN 0.4 MG CAP.ER.24H PO SCH (21:03)
[2023-08-20] MEDS: lisinopriL 5 MG TAB PO SCH (21:03)
[2023-08-20] MEDS: ATORVASTATIN 40 MG TAB PO SCH (21:03)
[2023-08-20] MEDS: METOPROLOL TARTRATE 12.5 MG TAB PO SCH (21:04)
[2023-08-20 21:39] LABS: Appearance,Urine Clear (Clear); Bilirubin,Urine Negative (Negative); Blood,Urine Negative (Negative); Color,Urine Yellow; Glucose,Urine (UA) Negative (Negative); Ketones,Urine Negative (Negative); Leukocyte Esterase,Urine Negative (Negative); Nitrite,Urine Negative (Negative); PH, Urine 5.5 (5.0-8.0); Protein,Urine Trace (Negative); Urobilinogen,Urine <2.0 mg/dL (<2.0)
--- NOTE | 2023-08-20 22:18 | XR ---
EXAMINATION TYPE: XR chest 1V confirm line plcmt DATE OF EXAM: 08/20/2023 9:45 PM CLINICAL INDICATION:Male, 72 years old with history of NG tube; COMPARISON: Chest radiographs from 08/20/2023 TECHNIQUE: XR chest 1V confirm line plcmt Frontal view of the chest. FINDINGS: Lungs/Pleura: No evidence of focal consolidation or pneumothorax. Blunting of the costophrenic angles is present. Pulmonary vascularity: Pulmonary vascular congestion. Heart/mediastinum: Cardiomediastinal silhouette is enlarged and stable. Single-lead cardiac conductio n device overlying the left hemithorax with lead projecting over the right ventricle. Musculoskeletal: No acute osseous pathology. Other findings: None No nasogastric tube is definitively visualized extending from the mouth to the stomach. IMPRESSION: 1. Nasogastric tube is not visualized extending through the esophagus. 2. Cardiomegaly with pulmonary vascular congestion appearing bilateral pleural effusions.
--- NOTE | 2023-08-20 23:11 | XR ---
EXAMINATION TYPE: XR chest 1V confirm line [facility] DATE OF EXAM: 08/20/2023 CLINICAL HISTORY: NG tube placement. TECHNIQUE: Single AP portable upright view of the chest is obtained. COMPARISON: Chest x-ray from earlier today FINDINGS: Nasogastric tube has been advanced and now projects below diaphragm. Overlying sternal wires redemonstrated. Persistent mild cardiomegaly with single lead pacemaker/ICD. Persistent bibasilar opacities. Upper lungs remain clear. Osseous structures are intact. IMPRESSION: Nasogastric tube now projects below diaphragm. Other findings stable. There is cardiomega ly with small bilateral pleural effusions and bibasilar acute infiltrate and/or atelectasis redemonst rated.
[2023-08-21] MEDS: LEVOTHYROXINE 100 MCG TAB PO SCH (06:13)
[2023-08-21 08:23] LABS: HCT 33.5 % (39.6-50.0); HGB 10.8 g/dL (13.0-17.0); MCH 29.3 pg (27.0-32.0); MCHC 32.2 g/dL (32.0-37.0); Mean Platelet Volume 10.7 FL (9.5-12.2); NRBC Per 100 WBC 0.02 X 10*3/uL (0.00-0.01); Platelet Count 499 X 10*3/uL (140-440); RBC 3.68 X 10*6/uL (4.40-5.60); RDW 15.9 % (11.5-14.5); WBC 14.56 X 10*3/uL (4.50-10.00)
[2023-08-21 08:30] LABS: BUN/Creat Ratio 19.45 Ratio (12.00-20.00); Blood Urea Nitrogen 21.4 mg/dL (9.0-27.0); Calcium 8.9 mg/dL (8.7-10.3); Chloride 99 mmol/L (96-109); Glucose 65 mg/dL (70-110); Potassium 4.3 mmol/L (3.5-5.5); Sodium 140 mmol/L (135-145)
[2023-08-21 09:12] LABS: Glucose,Whole Blood 70 mg/dL (70-110)
--- NOTE | 2023-08-21 09:38 | P.PN ---
Subjective Progress Note Date: 08/21/23 Patient is a 72-year-old male with a history of Hodgkin's lymphoma status post chemo radiation and splenectomy in the 1970s, atrial fibrillation, dyslipidemia, coronary artery disease with myocardial infarction and coronary artery bypass surgery, and prostate cancer who presented to the emergency department with complaints of nausea and vomiting. Patient was hospitalized here from 08/01/23 through 08/17/23 for ileus and possible pneumonia. He was treated conservatively. On arrival to the ER he was tachycardic with a pulse of 107. Laboratory in the ER consisted of CBC, coags, and CMP and was remarkable for sodium 135, lactic acid 2.3, and AST of 60. Abdominal x-ray was consistent with ileus. NG tube was placed. Arrangements were made for admission. He underwent CT abdomen pelvis which shows high density contrast into the rectum suggesting no complete obstruction, but could still be a partial obstruction along with anasarca of the soft tissues. Patient seen and examined at bedside. He is not having any belly pain today. No additional vomiting around NG tube. No stool output. Vital signs reviewed General: Nontoxic, no distress, Cardiovascular: S1S2 reg, no murmur Lungs: CTA bilateral, no rhonchi, no rales, no accessory muscle use Abdominal: Soft, nontender to palpation, no guarding Ext: No gross muscle atrophy, no edema b/l lower extremities, no contractures Neuro: CN II-XI grossly intact, no focal neuro deficits Psych: Alert, oriented, appropriate affect Assessment/Plan: Ileus vs small bowel obstruction lactic acidosis, resolved Hypoglycemia due to poor oral intake - NGT in place - Surgery recs in place: continue NGT, may benefit from upper GI follow-through - antiemetics, pain control -Start D5 half-normal saline at 50 cc/h - N.p.o. - complete diflucan course from prior hospital stay #2/3. Acute on chronic systolic CHF, EF 30 to 35% -Lopressor 12.5 mg twice daily, lisinopril 5 mg daily, Aldactone 50 mg daily -Lasix 40 mg IV push x 1 Thrombocytosis, reactive -follow CBC Chronic: Atrial fibrillation Coronary artery disease with history of myocardial infarction status post coronary artery bypass grafting Hypothyroidism Dyslipidemia Imaging: CT abdomen pelvis which shows high density contrast into the rectum suggesting n o complete obstruction Data Review: Today include CBC which is remarkable for white blood cell count 14.56 and platelets 499. Basic metabolic profile remarkable for glucose of 65. DVT prophylaxis: Lovenox Anticipated discharge date: Pending Clinical Course Anticipated discharge place: Pending Clinical Course This dictation was prepared using [employer] voice recognition software. Though every attempt is made to correct errors during dictation some may still exist. Objective - Vital Signs Vital signs: Vital Signs Temp 97.9 F 08/21/23 01:46 Pulse 98 08/21/23 01:46 Resp 18 08/21/23 01:46 BP 93/56 08/21/23 01:46 Pulse Ox 93 L 08/21/23 01:46 FiO2 Intake & Output 08/20/23 08/21/23 08/21/23 18:59 06:59 18:59 Intake Total 0 Output Total 0 300 Balance 0 -300 Weight 68.039 kg Intake: Oral 0 Output: Urine 0 300 Other: Voiding Method Bedside Commode Urinal - Labs CBC & Chem 7: 08/21/23 05:42 08/21/23 05:42 Labs: Abnormal Lab Results - Last 24 Hours (Table) 08/20/23 08/20/23 08/20/23 Range/Units 07:09 07:09 07:09 Plt Count 514 H (150-450) k/uL Sodium 135 L (137-145) mmol/L Chloride 97 L (98-107) mmol/L Glucose 110 H (74-99) mg/dL Plasma Lactic Acid Vicente 2.3 H* (0.7-2.0) mmol/L AST 60 H (17-59) U/L Albumin 3.4 L (3.5-5.0) g/dL Urine Protein (Negative) 08/20/23 Range/Units 21:25 Plt Count (150-450) k/uL Sodium (137-145) mmol/L Chloride (98-107) mmol/L Glucose (74-99) mg/dL Plasma Lactic Acid Vicente (0.7-2.0) mmol/L AST (17-59) U/L Albumin (3.5-5.0) g/dL Urine Protein Trace H (Negative)
[2023-08-21 09:43] LABS: Basophils # (A) 0.07 X 10*3/uL (0.00-0.10); Basophils % (A) 0.5 %; Eosinophils # (A) 0.02 X 10*3/uL (0.04-0.35); Eosinophils % (A) 0.1 %; Lymphocytes # (A) 0.73 X 10*3/uL (0.90-5.00); Monocytes # (A) 0.87 X 10*3/uL (0.20-1.00); Neutrophils # (A) 12.78 X 10*3/uL (1.80-7.70); Neutrophils % (A) 87.8 %; Schistocytes 1+
[2023-08-21] MEDS: DEXTROSE 5%-0.45% NACL 1,000 ML IV SCH (10:03)
[2023-08-21] MEDS: FUROSEMIDE 10 MG/ML 4 ML VIAL IV STA (10:04)
[2023-08-21] MEDS: ENOXAPARIN 40 MG/0.4 ML SYRINGE SQ SCH (10:04)
[2023-08-21] MEDS: SPIRONOLACTONE 25 MG TAB PO SCH (10:05)
[2023-08-21 12:26] LABS: Glucose,Whole Blood 77 mg/dL (70-110)
--- NOTE | 2023-08-21 15:20 | P.PN ---
Subjective Progress Note Date: 08/21/23 CHIEF COMPLAINT: Abdominal pain HISTORY OF PRESENT ILLNESS: Patient mid to the hospital with small bowel obstruction. He has NG tube in place. 350 mL bilious output through the NG tube. CT scan reported partial small bowel obstruction versus ileus. He reports that his pain has improved since being admitted to the hospital. He denies any nausea. He reports passing a small amount of flatus. No bowel movement. Afebrile. WBC 14.56 PHYSICAL EXAM: VITAL SIGNS: Reviewed GENERAL: Well-developed in no acute distress. HEENT: No sclera icterus. Extraocular movements grossly intact. Moist buccal mucosa. Head is atraumatic, normocephalic. Hears conversational speech. No nasal drainage. NECK: Supple without lymphadenopathy. CHEST: Non-labored respirations and equal bilateral excursions. CARDIOVASCULAR: Palpable 2+ radial pulses. ABDOMEN: Distended. Mildly tender MUSCULOSKELETAL: No clubbing or cyanosis. NEUROLOGIC: No focal or lateralizing signs. Cranial nerves II through XII alisa sly intact. PSYCH: Appropriate affect. Alert and oriented to person, place and time. SKIN: Well perfused. Good skin turgor. ASSESSMENT: 1. Partial small bowel obstruction versus ileus 2. Recent hospitalization with possible ischemic colitis versus infectious colitis 3. Recent ileus versus partial small bowel obstruction 4. History of splenectomy PLAN: -Patient scheduled for small bowel follow-through with Gastrografin in a.m. -Continue NG tube for decompression -Keep patient n.p.o. -Continue IV fluids Physician Health And Nutrition Specialist note has been reviewed by physician. Signing provider agrees with the documented findings, assessment, and plan of care. Objective - Vital Signs Vital signs: Vital Signs Temp 97.4 F L 08/21/23 13:07 Pulse 88 08/21/23 13:07 Resp 18 08/21/23 13:07 BP 96/57 08/21/23 13:07 Pulse Ox 96 08/21/23 13:07 FiO2 Intake & Output 08/20/23 08/21/23 08/21/23 18:59 06:59 18:59 Intake Total 0 Output Total 0 300 Balance 0 -300 Weight 68.039 kg 68.039 kg Intake: Oral 0 Output: Urine 0 300 Other: Voiding Method Bedside Commode Bedside Commode Urinal Urinal - Labs CBC & Chem 7: 08/21/23 05:42 08/21/23 05:42 Labs: Abnormal Lab Results - Last 24 Hours (Table) 08/20/23 08/21/23 08/21/23 Range/Units 21:25 05:42 05:42 WBC 14.56 H (4.50-10.00) X 10*3/uL RBC 3.68 L (4.40-5.60) X 10*6/uL Hgb 10.8 L (13.0-17.0) g/dL Hct 33.5 L (39.6-50.0) % RDW 15.9 H (11.5-14.5) % Plt Count 499 H (140-440) X 10*3/uL Immature Gran # 0.09 H (0.00-0.04) X 10*3/uL Neutrophils # 12.78 H (1.80-7.70) X 10*3/uL Lymphocytes # 0.73 L (0.90-5.00) X 10*3/uL Eosinophils # 0.02 L (0.04-0.35) X 10*3/uL NRBC/100 WBC Diff 0.02 H (0.00-0.01) X 10*3/uL Schistocytes 1+ A Anion Gap 16.00 H (4.00-12.00) mmol/L Glucose 65 L (70-110) mg/dL Urine Protein Trace H (Negative)
[2023-08-21 17:33] LABS: Glucose,Whole Blood 87 mg/dL (70-110)
[2023-08-21] MEDS: IPRATROPIUM-ALBUTEROL 3 ML NEB INHALATION STA (21:51)
[2023-08-21] MEDS: ACETYLCYSTEINE 800 MG/4 ML VIAL INHALATION STA (21:51)
[2023-08-22 00:05] LABS: Glucose,Whole Blood 100 mg/dL (70-110)
[2023-08-22 05:39] LABS: Glucose,Whole Blood 89 mg/dL (70-110)
[2023-08-22] MEDS: ONDANSETRON 4 MG/2 ML VIAL IVP PRN ×2 (09:53→15:23)
[2023-08-22 12:35] LABS: Glucose,Whole Blood 101 mg/dL (70-110)
--- NOTE | 2023-08-22 13:00 | P.PN ---
Subjective Progress Note Date: 08/22/23 Patient is a 72-year-old male with a history of Hodgkin's lymphoma status post chemo radiation and splenectomy in the 1970s, A Fib, HLD, CAD with myocardial infarction and CABG, and prostate cancer who presented to the emergency department with complaints of nausea and vomiting. Patient was hospitalized here from 08/01/23 through 08/17/23 for ileus and possible pneumonia. He was treated conservatively. On arrival to the ER he was tachycardic with a pulse of 107. Laboratory in the ER consisted of CBC, coags, and CMP and was remarkable for sodium 135, lactic acid 2.3, and AST of 60. Abdominal x-ray was consistent with ileus. NG tube was placed. Arrangements were made for admission. He underwent CT AP which shows high density contrast into the rectum suggesting no complete obstruction, but could still be a partial obstruction along with anasarca of the soft tissues. 08/22 Patient was seen and examined. He reports 2/10 abdominal pain. Currently with NG tube to suction. Surgery recommends small bowel follow through with Gastrografin. Vital signs reviewed General: Nontoxic, no distress, NG tube Cardiovascular: S1S2 reg, no murmur Lungs: CTA bilateral, no rhonchi, no rales, no accessory muscle use Abdominal: Soft, nontender to palpation, no guarding Ext: No gross muscle atrophy, no edema b/l lower extremities, no contractures Neuro: no focal neuro deficits Psych: Alert, oriented, appropriate affect Based on my assessment of this patient, this patient meets a moderate complexity level of care. Patient has an acute diagnosis of recurrent illeus that poses a threat to life or bodily function. Ileus vs SBO: NGT in place to suction. Small bowel follow through with Gastro grafin done today. Morphine 4 mg IV Q4H PRN pain. Zofran 4 mg IV Q8H PRN for N/V. Surgery on board. lactic acidosis, resolved Hypoglycemia due to poor oral intake: D5 half-normal saline at 50 cc/h Acute on chronic systolic CHF, EF 30 to 35%: Lopressor 12.5 mg twice daily, lisinopril 5 mg daily, Aldactone 50 mg daily Thrombocytosis, reactive Chronic: Atrial fibrillation, CAD with history of myocardial infarction status post CABG, Hypothyroidism, Dyslipidemia CODE STATUS: FULL CODE DVT Prophylaxis: Lovenox GI Prophylaxis: Designated medical POA if patient is not able to make medical decisions for themselves: I have reviewed the following customer care consultant notes: Surgery I have reviewed the results of the following tests: Small bowel with follow through pending. I have ordered the following tests: I have discussed the care of this patient with the following independent historian: I have independently interpreted the following test below: I have discussed the management of this patient with the following physician: Kena AIRAS Objective - Vital Signs Vital signs: Vital Signs Temp 97.4 F L 08/22/23 11:49 Pulse 102 H 08/22/23 11:49 Resp 20 08/22/23 11:49 BP 104/67 08/22/23 11:49 Pulse Ox 97 08/22/23 11:49 FiO2 Intake & Output 08/21/23 08/22/23 08/22/23 18:59 06:59 18:59 Output Total 1050 400 Balance -1050 -400 Weight 68.039 kg Output: Gastric Drainage 100 Urine 1050 300 Other: Voiding Method Bedside Commode Bedside Commode Toilet Urinal Urinal Bedside Commode Urinal Diaper - Labs CBC & Chem 7: 08/21/23 05:42 08/21/23 05:42
--- NOTE | 2023-08-22 14:56 | P.PN ---
Subjective Progress Note Date: 08/22/23 CHIEF COMPLAINT: Abdominal pain HISTORY OF PRESENT ILLNESS: Patient admitted to the hospital with small bowel obstruction. He has NG tube in place. Patient did not tolerate the small bowel follow-through that was scheduled for today. He started to vomit. They were able to take 2 x-rays. NG tube was placed back up to suction. Patient's abdomen does remains distended. He reports his pain is controlled. Mildly tachycardic. Patient denies any flatus or bowel movement. PHYSICAL EXAM: VITAL SIGNS: Reviewed GENERAL: Well-developed in no acute distress. HEENT: No sclera icterus. Extraocular movements grossly intact. Moist buccal mucosa. Head is atraumatic, normocephalic. Hears conversational speech. No nasal drainage. NECK: Supple without lymphadenopathy. CHEST: Non-labored respirations and equal bilateral excursions. CARDIOVASCULAR: Palpable 2+ radial pulses. ABDOMEN: Distended. Mildly tender MUSCULOSKELETAL: No clubbing or cyanosis. NEUROLOGIC: No focal or lateralizing signs. Cranial nerves II through XII grossly intact. PSYCH: Appropriate affect. Alert and oriented to person, place and time. SKIN: Well perfused. Good skin turgor. ASSESSMENT: 1. Partial small bowel obstruction 2. Recent hospitalization with possible ischemic colitis versus infectious colitis 3. Recent ileus versus partial small bowel obstruction 4. History of splenectomy PLAN: -Continue NG tube for decompression -Keep patient n.p.o. -Continue IV fluids -Further recommendations forthcoming per surgeon -Repeat labs in a.m. -Continue antiemetics as needed -DVT prophylaxis Lovenox Physician Metal Furniture Polisher note has been reviewed by physician. Signing provider agrees with the documented findings, assessment, and plan of care. Objective - Vital Signs Vital signs: Vital Signs Temp 97.4 F L 08/22/23 11:49 Pulse 102 H 08/22/23 11:49 Resp 20 08/22/23 11:49 BP 104/67 08/22/23 11:49 Pulse Ox 97 08/22/23 11:49 FiO2 Intake & Output 08/21/23 08/22/23 08/22/23 18:59 06:59 18:59 Output Total 1050 400 Balance -1050 -400 Weight 68.039 kg Output: Gastric Drainage 100 Urine 1050 300 Other: Voiding Method Bedside Commode Bedside Commode Toilet Urinal Urinal Bedside Commode Urinal Diaper - Labs CBC & Chem 7: 08/21/23 05:42 08/21/23 05:42
[2023-08-22 17:19] LABS: Glucose,Whole Blood 114 mg/dL (70-110)
[2023-08-22 23:57] LABS: Glucose,Whole Blood 109 mg/dL (70-110)
[2023-08-23 06:27] LABS: Glucose,Whole Blood 115 mg/dL (70-110)
--- NOTE | 2023-08-23 08:27 | FL ---
EXAMINATION TYPE: FL small bowel follow through DATE OF EXAM: 08/23/2023 8:19 AM COMPARISON: None INDICATION: Patient age:Male; 72 years old; Reason for study: follow up on SBO; TECHNIQUE: The procedure was explained and patient history elicited. All patient questions were ans wered prior to start of procedure. A tour manager radiograph of the abdomen was also reviewed. The patient was asked to ingest liquid Gastrografin and incremental frontal abdominal radiographs were then taken until contrast was visualized in the cecum. Fluoroscopic time: 0 min Fluoroscopic images: 0 Radiographs taken: 11 DAP: 0 mGym2 FINDINGS: The tour manager abdominal radiograph demonstrates dilated loops of small bowel and oral contrast extending throughout the colon. Left hip arthroplasty changes. Scattered surgical clips. There remains contrast within the cecum which is felt to been there on the tour manager imaging. No contrast is seen in the left upper quadrant near the splenic flexure during the exam and is felt that the con trast in the cecum is likely the residual contrast seen on the tour manager and not new contrast. There is d iffuse haziness of the abdomen likely from dilution of small bowel contrast. IMPRESSION: Contrast in the cecum is felt to be the residual scale imaging contrast. Findings suspicious for part ial versus complete obstruction. Surgical consultation recommended if not already performed.
[2023-08-23 11:24] LABS: Basophils # (A) 0.05 X 10*3/uL (0.00-0.10); Basophils % (A) 0.3 %; Eosinophils # (A) 0.12 X 10*3/uL (0.04-0.35); Eosinophils % (A) 0.8 %; HGB 11.2 g/dL (13.0-17.0); Lymphocytes # (A) 0.78 X 10*3/uL (0.90-5.00); Lymphocytes % (A) 5.3 %; MCH 28.2 pg (27.0-32.0); MCV 88.2 FL (80.0-97.0); Mean Platelet Volume 10.5 FL (9.5-12.2); Monocytes # (A) 0.85 X 10*3/uL (0.20-1.00); Monocytes % (A) 5.8 %; NRBC Per 100 WBC 0 X 10*3/uL (0.00-0.01); Neutrophils # (A) 12.71 X 10*3/uL (1.80-7.70); Neutrophils % (A) 86.5 %; Platelet Count 496 X 10*3/uL (140-440); RBC 3.97 X 10*6/uL (4.40-5.60)
[2023-08-23] MEDS ORDERED: THIAMINE 100 MG in SODIUM CHLORIDE 0.9% 50 ML IVPB SCH (11:45)
[2023-08-23 11:58] LABS: Blood Urea Nitrogen 20.7 mg/dL (9.0-27.0); Calcium 9.2 mg/dL (8.7-10.3); Carbon Dioxide 28.5 mmol/L (21.6-31.8); Chloride 100 mmol/L (96-109); Glucose 99 mg/dL (70-110); Potassium 3.6 mmol/L (3.5-5.5); Sodium 142 mmol/L (135-145)
[2023-08-23 12:20] LABS: Ionized Calcium 4.8 mg/dL (4.5-5.3)
[2023-08-23 12:29] LABS: ALT 27 U/L (4-49); AST 42 U/L (17-59); African American GFR (CKD) >90 (>60 ml/min/1.73 sqM); Albumin 2.5 g/dL (3.5-5.0); Albumin/Globulin Ratio 0.9; Alkaline Phosphatase 118 U/L (38-126); Anion Gap 5 mmol/L; Blood Urea Nitrogen 23 mg/dL (9-20); Calcium 8.7 mg/dL (8.4-10.2); Carbon Dioxide 31 mmol/L (22-30); Chloride 103 mmol/L (98-107); Globulin 2.8 g/dL; Glucose 106 mg/dL (74-99); Magnesium 2.4 mg/dL (1.6-2.3); Non-African American GFR(CKD) 88 (>60 ml/min/1.73 sqM); Phosphorus 2.9 mg/dL (2.5-4.5); Potassium 3.4 mmol/L (3.5-5.1); Sodium 139 mmol/L (137-145); Total Bilirubin 0.5 mg/dL (0.2-1.3); Total Protein 5.3 g/dL (6.3-8.2)
[2023-08-23] MEDS: THIAMINE 100 MG/ML 2 ML VIAL IVP SCH (12:58)
[2023-08-23 13:07] LABS: Glucose,Whole Blood 96 mg/dL (70-110)
--- NOTE | 2023-08-23 13:40 | P.PN ---
Subjective Progress Note Date: 08/23/23 Patient is a 72-year-old male with a history of Hodgkin's lymphoma status post chemo radiation and splenectomy in the 1970s, A Fib, HLD, CAD with myocardial infarction and CABG, and prostate cancer who presented to the emergency department with complaints of nausea and vomiting. Patient was hospitalized here from 08/01/23 through 08/17/23 for ileus and possible pneumonia. He was treated conservatively. On arrival to the ER he was tachycardic with a pulse of 107. Laboratory in the ER consisted of CBC, coags, and CMP and was remarkable for sodium 135, lactic acid 2.3, and AST of 60. Abdominal x-ray was consistent with ileus. NG tube was placed. Arrangements were made for admission. He underwent CT AP which shows high density contrast into the rectum suggesting no complete obstruction, but could still be a partial obstruction along with anasarca of the soft tissues. 08/22 Patient was seen and examined. He reports 2/10 abdominal pain. Currently with NG tube to suction. Surgery recommends small bowel follow through with Gastrografin. 08/23 Patient was seen and examined. Small bowel follow through seems to suggest partial SBO. Currently with NG tube to suction. Plans for PICC line and TPN for nutrition. CBC WBC 14.7, Hg 11.2, Hct 35, Plt 496. BMP K 3.4, bicarb 31, BUN 23, glu 106, alb 2.5, T. protein 5.3. Mag 2.4. Phos 2.9. Ionized Ca 4.8. Vital signs reviewed General: Nontoxic, no distress, NG tube Cardiovascular: S1S2 reg, no murmur Lungs: CTA bilateral, no rhonchi, no rales, no accessory muscle use Abdominal: Soft, nontender to palpation, no guarding Ext: No gross muscle atrophy, no edema b/l lower extremities, no contractures Neuro: no focal neuro deficits Psych: Alert, oriented, appropriate affect Based on my assessment of this patient, this patient meets a moderate complexity level of care. Patient has an acute diagnosis of recurrent illeus that poses a threat to life or bodily function. Ileus vs SBO: NGT in place to suction. Small bowel follow through with Gastrografin suggesting partial SBO. Morphine 4 mg IV Q4H PRN pain. Zofran 4 mg IV Q8H PRN for N/V. Surgery on board. Protein calorie malnutrition: Plans for PICC line and TPN for nutrition. Lactic acidosis, resolved Hypoglycemia due to poor oral intake: D5 half-normal saline at 50 cc/h Acute on chronic systolic CHF, EF 30 to 35%: Lopressor 12.5 mg twice daily, lisinopril 5 mg daily, Aldactone 50 mg daily Thrombocytosis, reactive Chronic: Atrial fibrillation, CAD with history of myocardial infarction status post CABG, Hypothyroidism, Dyslipidemia CODE STATUS: FULL CODE DVT Prophylaxis: Lovenox GI Prophylaxis: Designated medical POA if patient is not able to make medical decisions for themselves: I have reviewed the following tax credit leasing consultant notes: Surgery I have reviewed the results of the following tests: Small bowel with follow through. CBC, BMP, Mag, Phos, ionized Ca I have ordered the following tests: Daily CBC, BMP, Mag, Phos, ionized Ca while receiving TPN. I have discussed the care of this patient with the following independent historian: I have independently interpreted the following test below: I have discussed the management of this patient with the following physician: Objective - Vital Signs Vital signs: Vital Signs Temp 97.4 F L 08/23/23 07:10 Pulse 92 08/23/23 07:10 Resp 18 08/23/23 07:10 BP 100/65 08/23/23 07:10 Pulse Ox 95 08/23/23 07:10 FiO2 Intake & Output 08/22/23 08/23/23 08/23/23 18:59 06:59 18:59 Intake Total 600 Output Total 3150 2250 Balance -2550 -2250 Intake: Intake, IV Titration 600 Amount Dextrose 5%-0.45% NaCl 1, 600 000 ml @ 50 mls/hr IV . Q20H [facility] Rx#:[id number] Output: Gastric Drainage 1050 1250 Drainage 2100 Head 2100 Urine 1000 Other: Voiding Method Toilet Bedside Commode Bedside Commode Urinal Urinal Diaper # Voids 3 - Labs CBC & Chem 7: 08/23/23 06:33 08/23/23 11:21 Labs: Abnormal Lab Results - Last 24 Hours (Table) 08/22/23 08/23/23 Range/Units 17:18 06:26 POC Glucose (mg/dL) 114 H 115 H (70-110) mg/dL
--- NOTE | 2023-08-23 14:57 | P.PN ---
Subjective Progress Note Date: 08/23/23 CHIEF COMPLAINT: Abdominal pain HISTORY OF PRESENT ILLNESS: Patient admitted to the hospital with small bowel obstruction. He has NG tube in place. Small bowel follow-through results reports contrast and cecum felt to be residual from imaging contrast. Findings suspicious for partial versus complete obstruction. Patient remains distended. He denies abdominal pain. Denies nausea. Patient reports improvement in his pain and nausea after having the NG tube placed back to suction after the small bowel follow-through. Patient could not complete the small bowel follow- through. Patient reports still no flatus or bowel movement. Afebrile. WBC 14.7 Hgb 11.2 platelets 496 sodium is 139 potassium 3.4 creatinine 0.86. NG tube 1250 mL bilious drainage PHYSICAL EXAM: VITAL SIGNS: Reviewed GENERAL: Well-developed in no acute distress. HEENT: No sclera icterus. Extraocular movements grossly intact. Moist buccal mucosa. Head is atraumatic, normocephalic. Hears conversational speech. No nasal drainage. NECK: Supple without lymphadenopathy. CHEST: Non-labored respirations and equal bilateral excursions. CARDIOVASCULAR: Palpable 2+ radial pulses. ABDOMEN: Distended. nontender MUSCULOSKELETAL: No clubbing or cyanosis. NEUROLOGIC: No focal or lateralizing signs. Cranial nerves II through XII grossly intact. PSYCH: Appropriate affect. Alert and oriented to person, place and time. SKIN: Well perfused. Good skin turgor. ASSESSMENT: 1. Partial small bowel obstruction versus complete obstruction 2. Recent hospitalization with possible ischemic colitis versus infectious c olitis 3. Recent ileus versus partial small bowel obstruction 4. History of splenectomy 5. History of CHF with reduced EF 30 to 35% 6. History of coronary artery disease 7. Hypokalemia PLAN: -Patient will require surgical intervention. Further recommendations forthcoming per surgeon regarding date of surgery -Consult interventional radiology for PICC line -Consult dietitian for TPN -Consult cardiology for cardiac risk assessment -Continue NG tube for decompression -Keep patient n.p.o. -Continue IV fluids -Continue to medically optimize patient -Continue antiemetics as needed -Thiamine 100 mg IV daily added per dietitian recommendations -Replace potassium -DVT prophylaxis Lovenox Physician Spa Technician note has been reviewed by physician. Signing provider agrees with the documented findings, assessment, and plan of care. Objective - Vital Signs Vital signs: Vital Signs Temp 97.8 F 08/23/23 12:57 Pulse 89 08/23/23 12:57 Resp 18 08/23/23 12:57 BP 104/66 08/23/23 12:57 Pulse Ox 98 08/23/23 12:57 FiO2 Intake & Output 08/22/23 08/23/23 08/23/23 18:59 06:59 18:59 Intake Total 600 Output Total 3150 2250 Balance -2550 -2250 Weight 68.039 kg Intake: Intake, IV Titration 600 Amount Dextrose 5%-0.45% NaCl 1, 600 000 ml @ 50 mls/hr IV . Q20H [facility] Rx#:[id number] Output: Gastric Drainage 1050 1250 Drainage 2100 Head 2100 Urine 1000 Other: Voiding Method Toilet Bedside Commode Bedside Commode Bedside Commode Urinal Urinal Urinal Diaper Diaper Incontinent # Voids 3 - Labs CBC & Chem 7: 08/23/23 06:33 08/23/23 11:21 Labs: Abnormal Lab Results - Last 24 Hours (Table) 08/22/23 08/23/23 08/23/23 Range/Units 17:18 06:26 06:33 WBC 14.70 H (4.50-10.00) X 10*3/uL RBC 3.97 L (4.40-5.60) X 10*6/uL Hgb 11.2 L (13.0-17.0) g/dL Hct 35.0 L (39.6-50.0) % RDW 16.0 H (11.5-14.5) % Plt Count 496 H (140-440) X 10*3/uL Immature Gran # 0.19 H (0.00-0.04) X 10*3/uL Neutrophils # 12.71 H (1.80-7.70) X 10*3/uL Lymphocytes # 0.78 L (0.90-5.00) X 10*3/uL Potassium (3.5-5.1) mmol/L Carbon Dioxide (22-30) mmol/L Anion Gap (4.00-12.00) mmol/L BUN (9-20) mg/dL BUN/Creatinine Ratio (12.00-20.00) Ratio Glucose (74-99) mg/dL POC Glucose (mg/dL) 114 H 115 H (70-110) mg/dL Magnesium (1.6-2.3) mg/dL Total Protein (6.3-8.2) g/dL Albumin (3.5-5.0) g/dL 08/23/23 08/23/23 Range/Units 06:33 11:21 WBC (4.50-10.00) X 10*3/uL RBC (4.40-5.60) X 10*6/uL Hgb (13.0-17.0) g/dL Hct (39.6-50.0) % RDW (11.5-14.5) % Plt Count (140-440) X 10*3/uL Immature Gran # (0.00-0.04) X 10*3/uL Neutrophils # (1.80-7.70) X 10*3/uL Lymphocytes # (0.90-5.00) X 10*3/uL Potassium 3.4 L (3.5-5.1) mmol/L Carbon Dioxide 31 H (22-30) mmol/L Anion Gap 13.50 H (4.00-12.00) mmol/L BUN 23 H (9-20) mg/dL BUN/Creatinine Ratio 20.70 H (12.00-20.00) Ratio Glucose 106 H (74-99) mg/dL POC Glucose (mg/dL) (70-110) mg/dL Magnesium 2.4 H (1.6-2.3) mg/dL Total Protein 5.3 L (6.3-8.2) g/dL Albumin 2.5 L (3.5-5.0) g/dL
--- NOTE | 2023-08-23 15:43 | P.OP ---
Date of Procedure: 08/23/23 Description of Procedure: Preoperative Diagnosis: Need for long-term IV antibiotic access. Postoperative Diagnosis: Same. Procedure(s) Performed: Ultrasound-guided cannulation left basilic vein. Insertion of peripherally inserted central catheter under fluoroscopic guidance. Anesthesia: local 1% lidocaine plain Surgeon: Davon Estimated Blood Loss (ml): 5 IV fluids (ml): 0 Urine output (ml): 0 Pathology: none sent Condition: stable Disposition: no change Indications for Procedure: Patient requires long-term IV antibiotics as an outpatient patient is offered a PICC line to allow for intravenous administration of antibiotics. Description of Procedure: Patient was brought to the special procedure suite. The right upper extremity sterilely prepped and draped in usual manner. Ultrasound was utilized to identify the basilic vein which was normally compressible free of visible thrombus. Permenant image was stored. 1% Xylocaine was utilized for local anesthesia tissues overlying the vein. Through this anesthetized area and with the aid of ultrasound a micropuncture needle was utilized to cannulate the vein. Once cannulated, Softip guidewire was advanced into the vein. The needle was withdrawn and a micropuncture sheath and dilator advanced over the guidewire. The guidewire was withdrawn and exchanged for the PICC guidewire and measured to the cavoatrial junction. The catheter was cut to size and advanced into the cavoatrial junction without resistance. The sheath was peeled away. Blood was easily withdrawn through the catheter and the catheter was then flushed with heparinized saline solution and secured to the skin. Patient tolerated procedure well and was returned to their room in satisfactory and stable condition.
[2023-08-23] MEDS: POTASSIUM CHLORIDE 20 MEQ in WATER FOR INJECTION 1 100ML.BAG IVPB STA (16:04)
[2023-08-23] MEDS: MVI, ADULT NO.4 WITH VIT K 10 ML, TRACE (CONC-1ML/DOSE) 1 ML, SODIUM ACETATE 30 MEQ, PO... IV ONE (17:16)
[2023-08-23 17:18] LABS: Glucose,Whole Blood 88 mg/dL (70-110)
--- NOTE | 2023-08-23 17:51 | IR ---
EXAMINATION TYPE: IR cvc insert >=5 years Intraoperative/procedural fluoroscopic services were provid ed. CLINICAL INDICATION:Male, 72 years old with history of Abx, 0.1m/0.141DAP, 4F 38cm rt basilic picc; , [facility] Total fluoroscopy time is 0.1 min. DAP: 0.141 Gycm2 Please see the operative/procedural note for further details.
[2023-08-24 00:04] LABS: Glucose,Whole Blood 128 mg/dL (70-110)
[2023-08-24 06:05] LABS: Glucose,Whole Blood 143 mg/dL (70-110)
[2023-08-24 07:45] LABS: African American GFR (CKD) >90 (>60 ml/min/1.73 sqM); Anion Gap 8 mmol/L; Blood Urea Nitrogen 20 mg/dL (9-20); Calcium 8.9 mg/dL (8.4-10.2); Carbon Dioxide 30 mmol/L (22-30); Chloride 101 mmol/L (98-107); Glucose 134 mg/dL (74-99); Magnesium 2.3 mg/dL (1.6-2.3); Non-African American GFR(CKD) >90 (>60 ml/min/1.73 sqM); Phosphorus 2.3 mg/dL (2.5-4.5); Potassium 3.8 mmol/L (3.5-5.1); Sodium 139 mmol/L (137-145)
--- NOTE | 2023-08-24 09:17 | P.CRDCN ---
History of Present Illness History of present illness: HISTORY OF PRESENT ILLNESS: This is a 72-year-old male with a past medical history significant for coronary artery disease with previous CABG, Hodgkin's lymphoma, splenectomy, hyperlipide alvino, and prostate cancer. Patient follows in the office with Dr. Avila. We have been asked to see the patient in consultation for cardiac risk assessment. Patient examined at the bedside. Patient is admitted to the hospital secondary to small bowel obstruction. Patient has an NG tube in place. He reports having a dry mouth this morning. Patient currently denies chest pain or pressure. He denies shortness of breath. He states since June he has had a hard time eating and drinking and keeping hydrated. He is being followed by general surgery with plans for possible surgical intervention DIAGNOSTICS: - EKG reveals sinus tachycardia with PVCs. - Chest xray dated 08/20/2023 revealed placement of NG tube, likely terminates over mid to distal esophagus. Recommend several centimeters of advancement. - Laboratory data: WBC 14.7. Hemoglobin 11.2. Platelet count 496. Sodium 139 potassium 3.4. BUN 23. Creatinine 0.86. - Current home cardiac medications include aspirin 162 mg daily, Lipitor 40 mg at night, Benzapril 5 mg at night, Lasix 40 mg daily, metoprolol tartrate 12.5 mg twice a day, and Aldactone 50 mg daily. - Most recent echocardiogram obtained on 08/01/2023 revealed ejection fraction 30 to 35%, severe global hypokinesis, mild TR, mild to moderate PI, mild to moderate mitral regurgitation, and moderate aortic regurgitation - Cardiac catheterization history: May [address] Adams revealing tribe CAD including 20 to 30% left main, 100% mid LAD, 50 to 60% mid circumflex, 40% ostial OM1, 40% ostial OM2, 60% small caliber RCA stenosis. Occluded SVG to OM1, SVG to OM 2, and SVG to diagonal. Patent GOMEZ to LAD. Patent SVG to PDA. Normal left-sided filling pressures. Medical management was recommended. REVIEW OF SYSTEMS: At the time of my exam: CONSTITUTIONAL: Denies fever or chills. HEENT: Denies blurred vision, vision changes, or eye pain. Denies hemoptysis CARDIOVASCULAR: Denies chest pain. Denies orthopnea. Denies PND. Denies palpitations RESPIRATORY: Denies shortness of breath. GASTROINTESTINAL: Denies abdominal pain. Denies nausea or vomiting. HEMATOLOGIC: Denies bleeding disorders. GENITOURINARY: Denies any blood in urine. SKIN: Denies pruitis. Denies rash. PHYSICAL EXAM: VITAL SIGNS: Reviewed. GENERAL: Well-developed in no acute distress. HEENT: Head is normocephalic. Pupils are equal, round. Sclerae anicteric. Mucous membranes of the mouth are moist. Neck supple. No JVD or thyromegaly LUNGS: Respirations even and unlabored. Lungs essentially clear to auscultation bilaterally. HEART: Regular rate and rhythm. S1 and S2 heard. Systolic murmur noted ABDOMEN: Soft. Distended. NG tube noted. EXTREMITIES: Normal range of motion. No clubbing or cyanosis. Peripheral pulses intact. No lower extremity edema NEUROLOGIC: Awake and alert. Oriented x 3. ASSESSMENT: Abdominal pain Partial small bowel obstruction Recent hospitalization with possible ischemic colitis versus infectious colitis Recent ileus versus partial small bowel obstruction Coronary artery disease status post CABG 2011 with GOMEZ to LAD, SVG to diagonal, SVG to OM1, SVG to OM 2, SVG to left PDA Occluded SVG to OM1, SVG to OM 2, and SVG to diagonal, per cardiac catheterization in May 2021 Ischemic cardiomyopathy, ejection fraction 30 to 35% Valvular heart disease Hypertension Hyperlipidemia History of splenectomy PLAN: No need to repeat echocardiogram as this was performed earlier this month Continue current cardiac medications If surgical intervention is warranted, patient is at intermediate risk to proceed. However, there are no absolute contraindications from a cardiac perspective Further recommendations pending patient course Nurse practitioner note has been reviewed by physician. Signing provider agrees with the documented findings, assessment, and plan of care documented by CRYSTAL GROWING TECHNICIAN as a scribe. Past Medical History Past Medical History: Atrial Fibrillation, Cancer, Hyperlipidemia, Myocardial Infarction ([place]), Thyroid Disorder Additional Past Medical History / Comment(s): HODGKIN LYMPHOMA RADIATION & CHEMO [place] [phone]), PROSTATE CANCER (JUN 2020). Last Myocardial Infarction Date:: 2011 History of Any Multi-Drug Resistant Organisms: None Reported Past Surgical History: Coronary Bypass/CABG, Heart Catheterization, Joint Replacement, Orthopedic Surgery Additional Past Surgical History / Comment(s): SPLEENECTOMY, TOTAL LEFT HIP (2004) Past Anesthesia/Blood Transfusion Reactions: No Reported Reaction Type of Cardiac Device: AICD Device Placement Date:: Past Psychological History: No Psychological Hx Reported Smoking Status: Never smoker Past Alcohol Use History: None Reported Past Drug Use History: None Reported - Past Family History Sister(s) Family Medical History: Cancer Additional Family Medical History / Comment(s): OVARIAN CANCER family Family Medical History: Coronary Artery Disease (CAD) Medications and Allergies Home Medications Medication Instructions Recorded Confirmed Type Aspirin [Adult Low Dose Aspirin EC] 162 mg PO DAILY 07/12/17 08/20/23 History Levothyroxine Sodium [Synthroid] 100 mcg PO DAILY 07/12/17 08/20/23 History Benazepril [Lotensin] 5 mg PO HS 02/04/20 08/20/23 History Tamsulosin [Flomax] 0.4 mg PO HS 11/02/20 08/20/23 History Atorvastatin [Lipitor] 40 mg PO HS 06/11/21 08/20/23 History Spironolactone [Aldactone] 50 mg PO DAILY 07/24/23 08/20/23 History Famotidine [Pepcid] 20 mg PO BID #30 tablet 07/28/23 08/20/23 Rx Ferrous Sulfate [Iron (65 MG 325 mg PO Q2D 08/01/23 08/20/23 History Elemental)] Amoxic-Pot Clav 875-125Mg 1 tab PO Q12HR 5 Days #10 tab 08/17/23 08/20/23 Rx [Augmentin 875-125] Fluconazole [Diflucan] 200 mg PO DAILY #5 tablet 08/17/23 08/20/23 Rx Furosemide [Lasix] 40 mg PO DAILY #7 tablet 08/17/23 08/20/23 Rx Metoprolol Tartrate [Lopressor] 12.5 mg PO BID #60 tab 08/17/23 08/20/23 Rx Potassium Chloride 10 meq PO DAILY #7 cap 08/17/23 08/20/23 Rx Allergies Allergy/AdvReac Type Severity Reaction Status Date / Time bee venom protein (honey bee) AdvReac Severe Rash/Hives Verified 08/20/23 12:52 amoxicillin AdvReac Diarrhea Verified 08/20/23 12:52 Physical Exam Vitals: Vital Signs Temp Pulse Resp BP BP Pulse Ox 08/23/23 07:10 97.4 F L 92 18 100/65 95 08/23/23 01:24 98.3 F 96 18 105/69 96 08/22/23 22:06 94 08/22/23 22:01 111 H 16 126/75 90 L 08/22/23 19:04 98 F 103 H 18 109/70 94 L Intake and Output 08/22/23 08/23/23 08/23/23 22:59 06:59 14:59 Intake Total 600 Output Total 2100 2250 Balance -1500 -2250 Intake: Intake, IV Titration 600 Amount Dextrose 5%-0.45% NaCl 1, 600 000 ml @ 50 mls/hr IV . Q20H [facility] Rx#:[id number] Output: Gastric Drainage 1250 Drainage 2100 Head 2100 Urine 1000 Other: Voiding Method Bedside Commode Bedside Commode Urinal Urinal Diaper Incontinent # Voids 3 Weight 68.039 kg Results 08/23/23 06:33 08/24/23 06:41 Cardiac Enzymes 08/23/23 Range/Units 11:21 AST 42 (17-59) U/L CBC 08/23/23 Range/Units 06:33 WBC 14.70 H (4.50-10.00) X 10*3/uL RBC 3.97 L (4.40-5.60) X 10*6/uL Hgb 11.2 L (13.0-17.0) g/dL Hct 35.0 L (39.6-50.0) % Plt Count 496 H (140-440) X 10*3/uL Comprehensive Metabolic Panel 08/23/23 08/23/23 Range/Units 06:33 11:21 Sodium 142 139 (135-145) mmol/L Potassium 3.6 3.4 L (3.5-5.5) mmol/L Chloride 100 103 (96-109) mmol/L Carbon Dioxide 28.5 31 H (21.6-31.8) mmol/L BUN 20.7 23 H (9.0-27.0) mg/dL Creatinine 1.0 0.86 (0.6-1.5) mg/dL Glucose 99 106 H (70-110) mg/dL Calcium 9.2 8.7 (8.7-10.3) mg/dL AST 42 (17-59) U/L ALT 27 (4-49) U/L Alkaline Phosphatase 118 (38-126) U/L Total Protein 5.3 L (6.3-8.2) g/dL Albumin 2.5 L (3.5-5.0) g/dL Current Medications Generic Name Dose Route Start Last Admin Trade Name Freq PRN Reason Stop Dose Admin Acetaminophen 650 mg 08/20/23 10:45 Acetaminophen Tab 325 Mg Tab PO Q6HR PRN Mild Pain or Fever > 100.5 Hydrocodone Bitart/Acetaminophen 1 each 08/20/23 10:45 Hydrocodone/Apap 5-325mg 1 Each Tab PO Q4HR PRN Moderate Pain (Scale 4 to 6) Atorvastatin Calcium 40 mg 08/20/23 21:00 08/22/23 22:03 Atorvastatin 40 Mg Tab PO 40 mg HS [facility] Administration Benzocaine/Menthol 1 each 08/20/23 10:45 Benzocaine/Menthol Lozeng 1 Each Lozenge MUCOUS MEM Q4HR PRN Sore Throat Enoxaparin Sodium 40 mg 08/21/23 09:00 08/23/23 08:13 Enoxaparin 40 Mg/0.4 Ml Syringe SQ 40 mg DAILY [facility] Administration Famotidine 20 mg 08/20/23 11:30 08/23/23 08:13 Famotidine 20 Mg Tab PO 20 mg BID [facility] Administration Ferrous Sulfate 325 mg 08/20/23 12:00 08/22/23 12:43 Ferrous Sulfate 325 Mg Tab PO Not Given Q2D [facility] Fluconazole 100 mg 08/20/23 12:00 08/23/23 08:13 Fluconazole 100 Mg Tab PO 100 mg DAILY [facility] Administration Protocol Dextrose/Sodium Chloride 1,000 mls @ 50 mls/hr 08/21/23 09:30 08/23/23 00:43 Dextrose 5%-1/2ns Iv Soln IV 50 mls/hr .Q20H [facility] Administration Levothyroxine Sodium 100 mcg 08/21/23 06:30 08/23/23 06:05 Levothyroxine 100 Mcg Tab PO 100 mcg DAILY@0630 [facility] Administration Lisinopril 5 mg 08/20/23 21:00 08/22/23 22:03 Lisinopril 5 Mg Tab PO 5 mg HS [facility] Administration Melatonin 3 mg 08/20/23 10:45 Melatonin 3 Mg Tablet PO HS PRN Insomnia Metoprolol Tartrate 12.5 mg 08/20/23 21:00 08/23/23 08:13 Metoprolol Tartrate 12.5 Mg Tab PO 12.5 mg BID [facility] Administration Morphine Sulfate 4 mg 08/20/23 10:45 Morphine Sulfate 4 Mg/Ml Syringe IVP Q4HR PRN Severe Pain (Scale 7 to 10) Naloxone HCl 0.2 mg 08/20/23 09:22 Naloxone 0.4 Mg/Ml 1 Ml Vial IV Q2M PRN Opioid Reversal Ondansetron HCl 4 mg 08/22/23 15:16 08/22/23 22:00 Ondansetron 4 Mg/2 Ml Vial IVP 4 mg Q6HR PRN Administration Nausea And Vomiting Spironolactone 50 mg 08/21/23 09:00 08/23/23 08:13 Spironolactone 25 Mg Tab PO 50 mg DAILY [facility] Administration Tamsulosin HCl 0.4 mg 08/20/23 21:00 08/22/23 22:03 Tamsulosin 0.4 Mg Cap.Er.24h PO 0.4 mg HS [facility] Administration Thiamine HCl 100 mg 08/23/23 13:00 08/23/23 12:58 Thiamine 100 Mg/Ml 2 Ml Vial IVP 100 mg DAILY [facility] Administration Intake and Output 08/22/23 08/23/23 08/23/23 22:59 06:59 14:59 Intake Total 600 Output Total 2100 2250 Balance -1500 -2250 Intake: Intake, IV Titration 600 Amount Dextrose 5%-0.45% NaCl 1, 600 000 ml @ 50 mls/hr IV . Q20H [facility] Rx#:[id number] Output: Gastric Drainage 1250 Drainage 2100 Head 2100 Urine 1000 Other: Voiding Method Bedside Commode Bedside Commode Urinal Urinal Diaper Incontinent # Voids 3 Weight 68.039 kg Patient Weight 08/24/23 06:59 Weight 68.039 kg 08/23/23 06:33 08/23/23 11:21
--- NOTE | 2023-08-24 11:00 | CA ---
Transthoracic Echo Report Name: Shamar Diehl Age: 72 Gender: M : 1950 Exam Date: 08/24/2023 08:18 Exam Location: [facility] Ht (in): 70 Wt (lb): 150 Ordering Physician: Omayra Andino MD Attending/Referring Phys: Thu SUAREZ Ceramic Worker Angelia Ferris RDCS Procedure CPT: Indications: Abnormal EKG, s/p stent placement, chest pain Cardiac Hx: Preop cardiac evaluation Technical Quality: Fair Contrast 1: Total Dose (mL): Contrast 2: Total Dose (mL): MEASUREMENTS (Male / Female) Normal Values 2D ECHO LV Diastolic Diameter PLAX 4.8 cm 4.2 - 5.9 / 3.9 - 5.3 cm LV Systolic Diameter PLAX 4.2 cm IVS Diastolic Thickness 0.9 cm 0.6 - 1.0 / 0.6 - 0.9 cm LVPW Diastolic Thickness 1.0 cm 0.6 - 1.0 / 0.6 - 0.9 cm LV Relative Wall Thickness 0.4 RV Internal Dim ED PLAX 3.3 cm LA Volume 64.2 cm??? 18 - 58 / 22 - 52 cm??? LA Volume Index 35.1 cm???/m??? 16 - 28 cm???/m??? DOPPLER AV Peak Velocity 110.2 cm/s AV Peak Gradient 4.9 mmHg AV Mean Velocity 75.8 cm/s AV Mean Gradient 2.6 mmHg AV Velocity Time Integral 19.0 cm AI Peak Velocity 374.5 cm/s AI Peak Gradient 56.1 mmHg AI Pressure Half Time 366.9 ms LVOT Peak Velocity 89.3 cm/s LVOT Peak Gradient 3.2 mmHg LVOT Velocity Time Integral 17.0 cm MV Peak Velocity 183.3 cm/s MV Peak Gradient 13.4 mmHg MV Mean Velocity 148.3 cm/s MV Mean Gradient 9.3 mmHg MV Velocity Time Integral 40.6 cm MV Area PHT 3.9 cm??? Mitral E Point Velocity 154.5 cm/s Mitral A Point Velocity 173.3 cm/s Mitral E to A Ratio 0.9 MV Deceleration Time 194.1 ms MV E' Velocity 6.4 cm/s Mitral E to MV E' Ratio 24.1 TR Peak Velocity 328.2 cm/s TR Peak Gradient 43.1 mmHg Right Ventricular Systolic Press 47.2 mmHg FINDINGS Left Ventricle Left ventricular wall thickness normal. Severely reduced global left ventricular systolic function. Left ventricular ejection fraction is estimated at 25-30 %. Right Ventricle Normal right ventricular size. Mild pulmonary hypertension. Right Atrium Normal right atrial size. Catheter/pacemaker wire in the right atrial cavity. Left Atrium Mildly increased left atrial volume. Mildly increased left atrial area. Mitral Valve Mitral valve thickened. Severe mitral annular calcification. Moderate mitral regurgitation. Mitral stenosis. Aortic Valve Trileaflet aortic valve. No aortic stenosis. [id number] aortic regurgitation. Aortic valve sclerosis. Tricuspid Valve Structurally normal tricuspid valve. [id number] tricuspid regurgitation. Pulmonic Valve Trace pulmonic regurgitation. Pericardium Minimal pericardial effusion (normal variant). Pleural effusion. Aorta Normal size aortic root and proximal ascending aorta. CONCLUSIONS Ischemic cardiomyopathy with severe LV systolic dysfunction Prior inferior wall myocardial infarction with hypokinesis involving the basal and mid inferior wall Moderate mitral and mild to moderate aortic regurgitation Moderate to severe tricuspid regurgitation Large pleural effusion Previewed by: Dr. Agustin Greer MD (Electronically Signed) Final Date: 24 August 2023 10:59
[2023-08-24 11:40] LABS: Basophils # (A) 0.08 X 10*3/uL (0.00-0.10); Basophils % (A) 0.7 %; Eosinophils # (A) 0.15 X 10*3/uL (0.04-0.35); Eosinophils % (A) 1.2 %; HCT 39.2 % (39.6-50.0); HGB 12.5 g/dL (13.0-17.0); Lymphocytes % (A) 6.7 %; MCH 28.2 pg (27.0-32.0); MCHC 31.9 g/dL (32.0-37.0); MCV 88.5 FL (80.0-97.0); Mean Platelet Volume 11.9 FL (9.5-12.2); Monocytes # (A) 0.85 X 10*3/uL (0.20-1.00); Monocytes % (A) 7.1 %; NRBC Per 100 WBC 0 X 10*3/uL (0.00-0.01); Neutrophils # (A) 9.97 X 10*3/uL (1.80-7.70); Platelet Count 369 X 10*3/uL (140-440); RBC 4.43 X 10*6/uL (4.40-5.60); RDW 16.2 % (11.5-14.5); WBC 12.01 X 10*3/uL (4.50-10.00)
--- NOTE | 2023-08-24 11:56 | XR ---
EXAMINATION TYPE: XR chest 2V DATE OF EXAM: 08/24/2023 11:52 AM CLINICAL INDICATION:Male, 72 years old with history of pleural effusions, echo shows large pleura eff usion; COMPARISON: Chest radiographs from 08/20/2023 TECHNIQUE: XR chest 2V Frontal and lateral views of the chest. FINDINGS: Lungs/Pleura: No evidence of focal consolidation or pneumothorax. Blunting of the costophrenic angles is present. Pulmonary vascularity: Pulmonary vascular congestion. Heart/mediastinum: Cardiomediastinal silhouette is enlarged and stable. Two lead cardiac conduction d evice overlying the left hemithorax with lead tips projecting over the right ventricle and right atri um. Musculoskeletal: No acute osseous pathology. Midline sternotomy wires are noted. Other findings: None Lines/Tubes: Nasogastric tube with its distal tip and side-port projecting under the diaphragm. Right-sided PICC line with distal tip at the cavoatrial junction. IMPRESSION: No acute cardiopulmonary disease/process.
[2023-08-24 12:10] LABS: Glucose,Whole Blood 133 mg/dL (70-110)
[2023-08-24] MEDS: FUROSEMIDE 10 MG/ML 4 ML VIAL IV STA (12:13)
[2023-08-24] MEDS: DEXAMETHASONE SOD PHOSPHATE 4 MG/ML 1 ML VIAL IV ONE (12:13)
[2023-08-24] MEDS: LACTATED RINGERS 1,000 ML IV SCH (12:23)
[2023-08-24] MEDS: ONDANSETRON 4 MG/2 ML VIAL IVP ONE (12:23)
--- NOTE | 2023-08-24 14:48 | P.PN ---
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 Patient was hospitalized here from 08/01/23 through 08/17/23 for ileus and possible pneumonia. He was treated conservatively. On arrival to the ER he was tachycardic with a pulse of 107. Laboratory in the ER consisted of CBC, coags, and CMP and was remarkable for sodium 135, lactic acid 2.3, and AST of 60. Abdominal x-ray was consistent with ileus. NG tube was placed. Arrangements were made for admission. He underwent CT AP which shows high density contrast into the rectum suggesting no complete obstruction, but could still be a partial obstruction along with anasarca of the soft tissues. 08/22 Patient was seen and examined. He reports 2/10 abdominal pain. Currently with NG tube to suction. Surgery recommends small bowel follow through with Gastrografin. 08/23 Patient was seen and examined. Small bowel follow through seems to suggest partial SBO. Currently with NG tube to suction. Plans for PICC line and TPN for nutrition. CBC WBC 14.7, Hg 11.2, Hct 35, Plt 496. BMP K 3.4, bicarb 31, BUN 23, glu 106, alb 2.5, T. protein 5.3. Mag 2.4. Phos 2.9. Ionized Ca 4.8. Patient was seen and examined. NG tube to suction. Reports no pain, N/V. Discussed with Kena ARIAS, recommending surgery. Cardiology consulted, intermediate risk, no absolute contraindication for surgery. Echo shows EF 25-30% with inf erior wall hypokinesis, moderate MR/AR, large pleural effusion. Pulmonary consulted for management of pleural effusion. CBC WBC 12.01, Hg 12.5, Hct 39.2. BMP glu 134. Phos 2.3. Mag 2.3. Vital signs reviewed General: Nontoxic, no distress, NG tube Cardiovascular: S1S2 reg, no murmur Lungs: CTA bilateral, no rhonchi, no rales, no accessory muscle use Abdominal: Soft, nontender to palpation, no guarding Ext: No gross muscle atrophy, no edema b/l lower extremities, no contractures Neuro: no focal neuro deficits Psych: Alert, oriented, appropriate affect Based on my assessment of this patient, this patient meets a moderate complexity level of care. Patient has an acute diagnosis of recurrent illeus that poses a threat to life or bodily function. Ileus vs SBO: NGT in place to suction. Small bowel follow through with Gastrografin suggesting partial SBO. Morphine 4 mg IV Q4H PRN pain. Zofran 4 mg IV Q8H PRN for N/V. Surgery on board. Pleural effusion: Pulmonary consult. May benefit from thoracentesis. Protein calorie malnutrition: Plans for PICC line and TPN for nutrition. Lactic acidosis, resolved Hypoglycemia due to poor oral intake: D5 half-normal saline at 50 cc/h Acute on chronic systolic CHF, EF 30 to 35%: Lopressor 12.5 mg twice daily, lisinopril 5 mg daily, Aldactone 50 mg daily Thrombocytosis, reactive Chronic: Atrial fibrillation, CAD with history of myocardial infarction status post CABG, Hypothyroidism, Dyslipidemia CODE STATUS: FULL CODE DVT Prophylaxis: Lovenox GI Prophylaxis: Designated medical POA if patient is not able to make medical decisions for themselves: I have reviewed the following toy consultant notes: Surgery, Cardiology I have reviewed the results of the following tests: CBC, BMP, Phos, Mag, Echo. I have ordered the following tests: Daily CBC, BMP, Mag, Phos, ionized Ca while receiving TPN. I have discussed the care of this patient with the following independent historian: I have independently interpreted the following test below: I have discussed the management of this patient with the following physician: Kena ARIAS regarding plans for surgery. Objective - Vital Signs Vital signs: Vital Signs Temp 97.5 F L 08/24/23 12:05 Pulse 94 08/24/23 12:05 Resp 16 08/24/23 12:05 BP 136/75 08/24/23 12:05 Pulse Ox 93 L 08/24/23 12:05 FiO2 Intake & Output 08/23/23 08/24/23 08/24/23 18:59 06:59 18:59 Intake Total 745 1140 Output Total 1250 50 200 Balance -505 1090 -200 Weight 68.039 kg 72.5 kg 72.5 kg Intake: Intake, IV Titration 745 1140 Amount Dextrose 5%-0.45% NaCl 1, 600 600 000 ml @ 50 mls/hr IV . Q20H [facility] Rx#:[id number] Mvi, Adult No.4 with Vit 45 540 K 10 ml Trace (Conc-1Ml/ Dose) 1 ml Sodium Acetate 30 meq Potassium Chloride 40 meq Calcium Gluconate 1 gm In Amino Acids 5 %/Dextrose 20 % 1 ,000 ml @ 30 mls/hr IV . Q24H ONE Rx#:[id number] Potassium Chloride 20 meq 100 In Water For Injection 1 100ml.bag @ 50 mls/hr IVPB ONCE STA Rx#: [id number] Output: Gastric Drainage 950 50 Urine 300 200 Other: Voiding Method Bedside Commode Bedside Commode Bedside Commode Urinal Urinal Urinal Diaper Diaper Diaper Incontinent Incontinent Incontinent - Labs CBC & Chem 7: 08/24/23 06:41 08/24/23 06:41 Labs: Abnormal Lab Results - Last 24 Hours (Table) 08/24/23 08/24/23 08/24/23 Range/Units 00:03 06:02 06:41 WBC 12.01 H (4.50-10.00) X 10*3/uL Hgb 12.5 L (13.0-17.0) g/dL Hct 39.2 L (39.6-50.0) % MCHC 31.9 L (32.0-37.0) g/dL RDW 16.2 H (11.5-14.5) % Immature Gran # 0.16 H (0.00-0.04) X 10*3/uL Neutrophils # 9.97 H (1.80-7.70) X 10*3/uL Lymphocytes # 0.80 L (0.90-5.00) X 10*3/uL Glucose (74-99) mg/dL POC Glucose (mg/dL) 128 H 143 H (70-110) mg/dL Phosphorus (2.5-4.5) mg/dL 08/24/23 08/24/23 Range/Units 06:41 12:08 WBC (4.50-10.00) X 10*3/uL Hgb (13.0-17.0) g/dL Hct (39.6-50.0) % MCHC (32.0-37.0) g/dL RDW (11.5-14.5) % Immature Gran # (0.00-0.04) X 10*3/uL Neutrophils # (1.80-7.70) X 10*3/uL Lymphocytes # (0.90-5.00) X 10*3/uL Glucose 134 H (74-99) mg/dL POC Glucose (mg/dL) 133 H (70-110) mg/dL Phosphorus 2.3 L (2.5-4.5) mg/dL
--- NOTE | 2023-08-24 15:06 | P.PN ---
Subjective Progress Note Date: 08/24/23 CHIEF COMPLAINT: Abdominal pain HISTORY OF PRESENT ILLNESS: Patient admitted to the hospital with small bowel obstruction. He has NG tube in place. Patient initially scheduled for surgery today. However, on echo cardiogram had showed a large pleural effusion. Cardiology has consulted pulmonary service. Surgery was canceled for today. Afebrile. WBC is down from 14-12. Echo reports ischemic cardiomyopathy with severe LV systolic dysfunction. EF 25 to 30% moderate mitral and mild to moderate aortic regurgitation. Moderate to severe tricuspid regurgitation large pleural effusion Chest x-ray no acute cardiopulmonary disease PHYSICAL EXAM: VITAL SIGNS: Reviewed GENERAL: Well-developed in no acute distress. HEENT: No sclera icterus. Extraocular movements grossly intact. Moist buccal mucosa. Head is atraumatic, normocephalic. Hears conversational speech. No nasal drainage. NECK: Supple without lymphadenopathy. CHEST: Non-labored respirations and equal bilateral excursions. CARDIOVASCULAR: Palpable 2+ radial pulses. ABDOMEN: Distended. Mild tenderness with palpation MUSCULOSKELETAL: No clubbing or cyanosis. NEUROLOGIC: No focal or lateralizing signs. Cranial nerves II through XII grossly intact. PSYCH: Appropriate affect. Alert and oriented to person, place and time. SKIN: Well perfused. Good skin turgor. ASSESSMENT: 1. Partial small bowel obstruction versus complete obstruction 2. Recent hospitalization with possible ischemic colitis versus infectious col itis 3. Recent ileus versus partial small bowel obstruction 4. History of splenectomy 5. History of CHF with reduced EF 30 to 35% 6. History of coronary artery disease 7. Hypokalemia PLAN: -Surgery canceled for today due to pleural effusion. Agree with pulmonary consult for evaluation of pleural effusion -Continue NG tube for decompression -Keep patient n.p.o. -Continue TPN for nutrition support -Continue to medically optimize patient -Continue antiemetics as needed -Thiamine 100 mg IVP daily added per dietitian recommendations -DVT prophylaxis Lovenox Physician Senior Shipping Clerk note has been reviewed by physician. Signing provider agrees with the documented findings, assessment, and plan of care. Objective - Vital Signs Vital signs: Vital Signs Temp 97.5 F L 08/24/23 12:05 Pulse 94 08/24/23 12:05 Resp 16 08/24/23 12:05 BP 136/75 08/24/23 12:05 Pulse Ox 93 L 08/24/23 12:05 FiO2 Intake & Output 08/23/23 08/24/23 08/24/23 18:59 06:59 18:59 Intake Total 745 1140 Output Total 1250 50 1400 Balance -505 1090 -1400 Weight 68.039 kg 72.5 kg 72.5 kg Intake: Intake, IV Titration 745 1140 Amount Dextrose 5%-0.45% NaCl 1, 600 600 000 ml @ 50 mls/hr IV . Q20H [facility] Rx#:[id number] Mvi, Adult No.4 with Vit 45 540 K 10 ml Trace (Conc-1Ml/ Dose) 1 ml Sodium Acetate 30 meq Potassium Chloride 40 meq Calcium Gluconate 1 gm In Amino Acids 5 %/Dextrose 20 % 1 ,000 ml @ 30 mls/hr IV . Q24H [facility] Rx#:[id number] Potassium Chloride 20 meq 100 In Water For Injection 1 100ml.bag @ 50 mls/hr IVPB ONCE STA Rx#: [id number] Output: Gastric Drainage 950 50 Urine 300 1400 Other: Voiding Method Bedside Commode Bedside Commode Bedside Commode Urinal Urinal Urinal Diaper Diaper Diaper Incontinent Incontinent Incontinent - Labs CBC & Chem 7: 08/24/23 06:41 08/24/23 06:41 Labs: Abnormal Lab Results - Last 24 Hours (Table) 08/24/23 08/24/23 08/24/23 Range/Units 00:03 06:02 06:41 WBC 12.01 H (4.50-10.00) X 10*3/uL Hgb 12.5 L (13.0-17.0) g/dL Hct 39.2 L (39.6-50.0) % MCHC 31.9 L (32.0-37.0) g/dL RDW 16.2 H (11.5-14.5) % Immature Gran # 0.16 H (0.00-0.04) X 10*3/uL Neutrophils # 9.97 H (1.80-7.70) X 10*3/uL Lymphocytes # 0.80 L (0.90-5.00) X 10*3/uL Glucose (74-99) mg/dL POC Glucose (mg/dL) 128 H 143 H (70-110) mg/dL Phosphorus (2.5-4.5) mg/dL 08/24/23 08/24/23 Range/Units 06:41 12:08 WBC (4.50-10.00) X 10*3/uL Hgb (13.0-17.0) g/dL Hct (39.6-50.0) % MCHC (32.0-37.0) g/dL RDW (11.5-14.5) % Immature Gran # (0.00-0.04) X 10*3/uL Neutrophils # (1.80-7.70) X 10*3/uL Lymphocytes # (0.90-5.00) X 10*3/uL Glucose 134 H (74-99) mg/dL POC Glucose (mg/dL) 133 H (70-110) mg/dL Phosphorus 2.3 L (2.5-4.5) mg/dL
[2023-08-24] MEDS: MVI, ADULT NO.4 WITH VIT K 10 ML, TRACE (CONC-1ML/DOSE) 1 ML, SODIUM PHOSPHATE 15 MMOL,... IV ONE (16:31)
[2023-08-24] MEDS: FAT EMULSION 20% 250 ML IV SCH (16:31)
[2023-08-24] MEDS ORDERED: MVI, ADULT NO.4 WITH VIT K 10 ML, TRACE (CONC-1ML/DOSE) 1 ML, SODIUM PHOSPHATE 15 MMOL,... IV ONE (17:00)
[2023-08-24 17:12] LABS: Glucose,Whole Blood 110 mg/dL (70-110)
--- NOTE | 2023-08-24 19:23 | P.CNPUL ---
History of Present Illness Consult date: 08/24/23 Reason for consult: pleural effusion History of present illness: I was asked to evaluate this patient regarding bilateral pleural effusions. The patient was admitted on 08/20/2023 for complaints of nausea and emesis. The patient is known to me from a previous hospitalization between 08/01/2023 and 08/17/2023. At that time, the patient was quite ill and he was seen and evaluated in the intensive care unit for shock/hypotension which was thought to be septic in nature. At time, the patient also had ileus/small bowel obstruction and ischemic colitis and the patient was treated conservatively and following his discharge he was tolerating full liquid diet but not regular.. Septic shock was highly suspected and the patient is immunocompromised due to his previous splenectomy. The patient was treated and the patient was discharged to be readmitted after a short period of time. He is known to have severe cardiomyopathy with an ejection fraction of 30 to 35%. He has coronary artery disease with previous [place] and previous coronary bypass surgery. He also has bilateral pleural effusion and we have performed a right-sided thoracentesis on this patient on 08/10/2023 and based on that pleural fluid analysis, the patient had a transudate with low LDH and protein in the pleural fluid cytology collected was negative for malignancy. Note that, at that time, the patient had a total of 1.2 L of pleural fluid aspirated from the right lung without any complications. He is also known to have history of Hodgkin's lymphoma with a previous splenectomy followed by chemoradiation therapy this was performed in 1976 in 1977. He is known to have prostate cancer, hypothyroidism, hyperlipidemia. During this current admission, the patient was seen and evaluated by general surgery. Regarding his progressive abdominal distention and nausea and emesis. The patient during this current admission underwent a small bowel follow-through and the patient was found to have findings suspicious for partial versus complete obstruction. Based on that, the patient is currently being considered for surgical exploration. He was supposed to go for surgery today and there was concern about his respiratory status as the patient had developed also bilateral pleural effusions. Based on that, pulmonary consultation was requested. He currently has an NG tube for decompression. He also has TPN for nutritional support. He is not receiving any form of antibiotics. He remains on oral Diflucan only. His white cell count is at 12 with a hemoglobin 12.5 and a platelet count of 369. BUN is at 20 with a creatinine 0.7. Sodium is at 139. Most recent echocardiogram that was done today showed impairment of LV function with an ejection fraction of 25 to 30%. There was also inferior wall hypokinesis and moderate MR and moderate aortic regurgitation and moderate to severe tricuspid regurgitation. The chest x-ray from today showing bilateral pleural effusion slightly worse on the left. The patient has an NG tube in place. Review of Systems Constitutional: Reports fatigue, Reports poor appetite, Reports weakness Eyes: denies as per HPI, denies blurred vision, denies bulging eye, denies decreased vision, denies diplopia, denies discharge, denies dry eye, denies irritation, denies itching, denies pain, denies photophobia, denies loss of peripheral vision, denies loss of vision, denies tunnel vision/blind spots Ears: deny: decreased hearing, ear discharge, earache, tinnitus Ears, nose, mouth and throat: Reports as per HPI Breasts: absent: as per HPI, gynecomastia Cardiovascular: Reports decreased exercise tolerance, Reports dyspnea on exertion, Reports irregular heart beat, Reports paroxysmal nocturnal dyspnea, Reports shortness of breath Respiratory: Reports dyspnea Gastrointestinal: Reports as per HPI, Reports abdominal pain, Reports loss of appetite, Reports nausea, Reports vomiting Genitourinary: Reports as per HPI Musculoskeletal: Reports as per HPI, Reports muscle weakness Musculoskeletal: bilateral: ankle swelling, absent: ankle pain, ankle stiffness Neurological: Reports as per HPI Psychiatric: Reports as per HPI Endocrine: Reports as per HPI, Reports fatigue Hematologic/Lymphatic: Reports as per HPI Allergic/Immunologic: Reports as per HPI Past Medical History Past Medical History: Atrial Fibrillation, Coronary Artery Disease (CAD), Cancer, Heart Failure, Hyperlipidemia, Myocardial Infarction ([place]), Thyroid Disorder Additional Past Medical History / Comment(s): HODGKIN LYMPHOMA RADIATION & CHEMO [place] [id number]), PROSTATE CANCER (JUN 2020). Last Myocardial Infarction Date:: 2011 History of Any Multi-Drug Resistant Organisms: None Reported Past Surgical History: Coronary Bypass/CABG, Heart Catheterization, Joint Replacement, Orthopedic Surgery Additional Past Surgical History / Comment(s): SPLEENECTOMY, TOTAL LEFT HIP (2004) Past Anesthesia/Blood Transfusion Reactions: No Reported Reaction Type of Cardiac Device: AICD Device Placement Date:: Past Psychological History: No Psychological Hx Reported Smoking Status: Never smoker Past Alcohol Use History: None Reported Past Drug Use History: None Reported - Past Family History Sister(s) Family Medical History: Cancer Additional Family Medical History / Comment(s): OVARIAN CANCER family Family Medical History: Coronary Artery Disease (CAD) Medications and Allergies Home Medications Medication Instructions Recorded Confirmed Type Aspirin [Adult Low Dose Aspirin EC] 162 mg PO DAILY 07/12/17 08/20/23 History Levothyroxine Sodium [Synthroid] 100 mcg PO DAILY 07/12/17 08/20/23 History Benazepril [Lotensin] 5 mg PO HS 02/04/20 08/20/23 History Tamsulosin [Flomax] 0.4 mg PO HS 11/02/20 08/20/23 History Atorvastatin [Lipitor] 40 mg PO HS 06/11/21 08/20/23 History Spironolactone [Aldactone] 50 mg PO DAILY 07/24/23 08/20/23 History Famotidine [Pepcid] 20 mg PO BID #30 tablet 07/28/23 08/20/23 Rx Ferrous Sulfate [Iron (65 MG 325 mg PO Q2D 08/01/23 08/20/23 History Elemental)] Amoxic-Pot Clav 875-125Mg 1 tab PO Q12HR 5 Days #10 tab 08/17/23 08/20/23 Rx [Augmentin 875-125] Fluconazole [Diflucan] 200 mg PO DAILY #5 tablet 08/17/23 08/20/23 Rx Furosemide [Lasix] 40 mg PO DAILY #7 tablet 08/17/23 08/20/23 Rx Metoprolol Tartrate [Lopressor] 12.5 mg PO BID #60 tab 08/17/23 08/20/23 Rx Potassium Chloride 10 meq PO DAILY #7 cap 08/17/23 08/20/23 Rx Allergies Allergy/AdvReac Type Severity Reaction Status Date / Time bee venom protein (honey bee) AdvReac Severe Rash/Hives Verified 08/20/23 12:52 amoxicillin AdvReac Diarrhea Verified 08/20/23 12:52 Physical Exam Vitals: Vital Signs Temp Pulse Resp BP BP Pulse Ox 08/24/23 15:30 97.6 F 98 22 120/72 94 L 08/24/23 12:05 97.5 F L 94 16 136/75 93 L 08/24/23 08:00 96 16 08/24/23 07:09 97.5 F L 96 16 126/78 98 08/24/23 05:34 98.1 F 90 18 131/76 08/24/23 02:00 98.3 F 92 16 123/78 96 08/23/23 19:04 98.1 F 96 16 114/73 99 Intake and Output 08/24/23 08/24/23 08/24/23 06:59 14:59 22:59 Intake Total 1140 Output Total 50 1400 1000 Balance 1090 -1400 -1000 Intake: Intake, IV Titration 1140 Amount Dextrose 5%-0.45% NaCl 1, 600 000 ml @ 50 mls/hr IV . Q20H [facility] Rx#:[id number] Mvi, Adult No.4 with Vit 540 K 10 ml Trace (Conc-1Ml/ Dose) 1 ml Sodium Acetate 30 meq Potassium Chloride 40 meq Calcium Gluconate 1 gm In Amino Acids 5 %/Dextrose 20 % 1 ,000 ml @ 30 mls/hr IV . Q24H [facility] Rx#:[id number] Output: Gastric Drainage 50 Drainage 1000 Head 1000 Urine 1400 Other: Voiding Method Bedside Commode Urinal Diaper Incontinent Weight 72.5 kg 72.5 kg GENERAL: Well-developed in no acute distress. Patient has an NG tube in place and the patient is currently on 2 L of O2 nasal cannula with a pulse ox of 94% HEENT: No sclera icterus. Extraocular movements grossly intact. Moist buccal mucosa. Head is atraumatic, normocephalic. Hears conversational speech. No nasal drainage. NECK: Supple without lymphadenopathy. CHEST: Non-labored respirations and equal bilateral excursions. CARDIOVASCULAR: Palpable 2+ radial pulses. ABDOMEN: Distended. Mild tenderness with palpation MUSCULOSKELETAL: No clubbing or cyanosis. NEUROLOGIC: No focal or lateralizing signs. Cranial nerves II through XII grossly intact. PSYCH: Appropriate affect. Alert and oriented to person, place and time. SKIN: Well perfused. Good skin turgor. Results - Laboratory Findings CBC and BMP: 08/24/23 06:41 08/24/23 06:41 PT/INR, D-dimer PT 11.3 sec (10.0-12.5) 08/20/23 07:09 INR 1.0 (<1.2) 08/20/23 07:09 Abnormal lab findings: Abnormal Labs 08/20/23 08/20/23 08/20/23 07:09 07:09 07:09 WBC RBC Hgb Hct MCHC RDW Plt Count 514 H Immature Gran # Neutrophils # Lymphocytes # Eosinophils # NRBC/100 WBC Diff Schistocytes Sodium 135 L Potassium Chloride 97 L Carbon Dioxide Anion Gap BUN BUN/Creatinine Ratio Glucose 110 H POC Glucose (mg/dL) Plasma Lactic Acid Vicente 2.3 H* Phosphorus Magnesium AST 60 H Total Protein Albumin 3.4 L Urine Protein 08/20/23 08/21/23 08/21/23 21:25 05:42 05:42 WBC 14.56 H RBC 3.68 L Hgb 10.8 L Hct 33.5 L MCHC RDW 15.9 H Plt Count 499 H Immature Gran # 0.09 H Neutrophils # 12.78 H Lymphocytes # 0.73 L Eosinophils # 0.02 L NRBC/100 WBC Diff 0.02 H Schistocytes 1+ A Sodium Potassium Chloride Carbon Dioxide Anion Gap 16.00 H BUN BUN/Creatinine Ratio Glucose 65 L POC Glucose (mg/dL) Plasma Lactic Acid Vicente Phosphorus Magnesium AST Total Protein Albumin Urine Protein Trace H 08/22/23 08/23/23 08/23/23 17:18 06:26 06:33 WBC 14.70 H RBC 3.97 L Hgb 11.2 L Hct 35.0 L MCHC RDW 16.0 H Plt Count 496 H Immature Gran # 0.19 H Neutrophils # 12.71 H Lymphocytes # 0.78 L Eosinophils # NRBC/100 WBC Diff Schistocytes Sodium Potassium Chloride Carbon Dioxide Anion Gap BUN BUN/Creatinine Ratio Glucose POC Glucose (mg/dL) 114 H 115 H Plasma Lactic Acid Vicente Phosphorus Magnesium AST Total Protein Albumin Urine Protein 08/23/23 08/23/23 08/24/23 06:33 11:21 00:03 WBC RBC Hgb Hct MCHC RDW Plt Count Immature Gran # Neutrophils # Lymphocytes # Eosinophils # NRBC/100 WBC Diff Schistocytes Sodium Potassium 3.4 L Chloride Carbon Dioxide 31 H Anion Gap 13.50 H BUN 23 H BUN/Creatinine Ratio 20.70 H Glucose 106 H POC Glucose (mg/dL) 128 H Plasma Lactic Acid Vicente Phosphorus Magnesium 2.4 H AST Total Protein 5.3 L Albumin 2.5 L Urine Protein 08/24/23 08/24/23 08/24/23 06:02 06:41 06:41 WBC 12.01 H RBC Hgb 12.5 L Hct 39.2 L MCHC 31.9 L RDW 16.2 H Plt Count Immature Gran # 0.16 H Neutrophils # 9.97 H Lymphocytes # 0.80 L Eosinophils # NRBC/100 WBC Diff Schistocytes Sodium Potassium Chloride Carbon Dioxide Anion Gap BUN BUN/Creatinine Ratio Glucose 134 H POC Glucose (mg/dL) 143 H Plasma Lactic Acid Vicente Phosphorus 2.3 L Magnesium AST Total Protein Albumin Urine Protein 08/24/23 12:08 WBC RBC Hgb Hct MCHC RDW Plt Count Immature Gran # Neutrophils # Lymphocytes # Eosinophils # NRBC/100 WBC Diff Schistocytes Sodium Potassium Chloride Carbon Dioxide Anion Gap BUN BUN/Creatinine Ratio Glucose POC Glucose (mg/dL) 133 H Plasma Lactic Acid Vicente Phosphorus Magnesium AST Total Protein Albumin Urine Protein - Diagnostic Findings Chest x-ray: image reviewed Assessment and Plan Plan: Abdominal pain/distention attributed to partial versus complete small bowel obstruction and the patient will need surgical exploration. Currently n.p.o. receiving TPN for nutritional support. Recent hospitalization for ischemic colitis/septic shock requiring prolonged hospitalization and the patient was readmitted ongoing abdominal pain and distention and suspected bowel obstruction. Bilateral pleural effusion left more than right, secondary to CHF. Previous thoracentesis was done on 2023 indicated a transudate. A total of 1.2 L of pleural fluid was aspirated from the right lung without any complications. The patient obviously has recurrent pleural effusions and the patient also underwent a left-sided thoracentesis on 08/13/2023 with a total of 1 L of fluid removed and fluid was not sent for analysis during the second thoracentesis CHF with systolic heart failure and ejection fraction of 25% the patient also has moderate mitral regurgitation, mild to moderate aortic regurgitation, moderate-severe tricuspid regurgitation with mild pulmonary hypertension. 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 No absolute cardiac contraindications for surgery. In terms of pulmonary status, draining the pleural fluid may benefit the patient in terms of postoperative care. I am going to go ahead and perform a left- sided thoracentesis today to be followed up by right in preparation for this patient's upcoming surgery. Keep NG tube in place Continue TPN for nutritional support Will follow
--- NOTE | 2023-08-24 19:24 | P.PCN ---
Date of Procedure: 08/24/23 Preoperative Diagnosis: Pleural effusion, left Postoperative Diagnosis: Pleural effusion, left Procedure(s) Performed: Thoracentesis, left Anesthesia: local Surgeon: Faye Hanson Pathology: other Condition: stable Disposition: floor Operative Findings: A time out was performed and the chest x-ray was reviewed, the appropriate side was confirmed and marked. My hands were washed immediately prior to the procedure. I wore a surgical cap, mask with protective eyewear, sterile gown and sterile gloves throughout the procedure. The patient was prepped and draped in a sterile manner using chlorhexidine scrub after the appropriate level was percussed and confirmed by ultrasound. 1% lidocaine was used to anesthesize the skin, subcutaneous tissue, superior aspect of the rib periosteum and parietal pleura. A finder needle was then introduced over the superior aspect of the rib to locate the pleural fluid; 2colored fluid was aspirated at a depth of approximately 2 cm. A 10-blade scalpel was used to abdirizak the skin at the insertion site. The [id number] needle was then introduced through the skin incision into the pleural space using negative aspiration pressure and the red colometric indicator to confirm appropriate positioning of the needle. The thoracentesis catheter was then threaded without difficulty. 1200 ml of turbid colored fluid was removed without difficulty. The catheter was then removed. No immediate complications were noted during the procedure. A post-procedure chest x-ray is pending at the time of this note. The fluid will not be sent for studies. Estimated blood loss is 0cc
--- NOTE | 2023-08-24 19:32 | XR ---
EXAMINATION TYPE: XR chest 1V portable DATE OF EXAM: 08/24/2023 COMPARISON: 08/24/2023 INDICATION: Postthoracentesis TECHNIQUE: Single frontal view of the chest is obtained. FINDINGS: The heart size is normal. Pacemaker overlies left chest. Sternotomy wires are in the midline. The pulmonary vasculature is normal. Small right pleural effusion is present. Minimal left pleural effusion is present. No pneumothorax is evident Nasogastric tube is present with the tip in the right upper abdomen. IMPRESSION: 1. No pneumothorax postthoracentesis. 2. Small bilateral pleural effusions larger on the right. 3 nasogastric tube with tip within the righ t abdomen
[2023-08-24] MEDS: ACETAMINOPHEN TAB 325 MG TAB PO PRN (21:14)
[2023-08-25 00:03] LABS: Glucose,Whole Blood 146 mg/dL (70-110)
[2023-08-25 06:00] LABS: Glucose,Whole Blood 105 mg/dL (70-110)
[2023-08-25] MEDS ORDERED: SODIUM PHOSPHATE IV ONE (07:00)
[2023-08-25] MEDS ORDERED: HYDROmorphone 0.5 MG/0.5 ML SYRINGE IVP PRN (07:00)
[2023-08-25] MEDS ORDERED: [UNRECOGNIZED DRUG - OTHER] IV ONE (07:00)
[2023-08-25] MEDS ORDERED: POTASSIUM CHLORIDE IV ONE (07:00)
[2023-08-25] MEDS ORDERED: SODIUM ACETATE IV ONE (07:00)
[2023-08-25 07:35] LABS: African American GFR (CKD) >90 (>60 ml/min/1.73 sqM); Anion Gap 7 mmol/L; Blood Urea Nitrogen 21 mg/dL (9-20); Calcium 8.7 mg/dL (8.4-10.2); Carbon Dioxide 30 mmol/L (22-30); Chloride 99 mmol/L (98-107); Glucose 105 mg/dL (74-99); Magnesium 1.9 mg/dL (1.6-2.3); Non-African American GFR(CKD) >90 (>60 ml/min/1.73 sqM); Phosphorus 2.7 mg/dL (2.5-4.5); Potassium 3.6 mmol/L (3.5-5.1); Sodium 136 mmol/L (137-145)
--- NOTE | 2023-08-25 07:56 | P.PN ---
Subjective Progress Note Date: 08/25/23 I was asked to evaluate this patient regarding bilateral pleural effusions. The patient was admitted on 08/20/2023 for complaints of nausea and emesis. The patient is known to me from a previous hospitalization between 08/01/2023 and 08/17/2023. At that time, the patient was quite ill and he was seen and evaluated in the intensive care unit for shock/hypotension which was thought to be septic in nature. At time, the patient also had ileus/small bowel obstruction and ischemic colitis and the patient was treated conservatively and following his discharge he was tolerating full liquid diet but not regular.. Septic shock was highly suspected and the patient is immunocompromised due to his previous splenectomy. The patient was treated and the patient was discharged to be readmitted after a short period of time. He is known to have severe cardiomyopathy with an ejection fraction of 30 to 35%. He has coronary artery disease with previous [place] and previous coronary bypass surgery. He also has bilateral pleural effusion and we have performed a right-sided thoracentesis on this patient on 08/10/2023 and based on that pleural fluid analysis, the patient had a transudate with low LDH and protein in the pleural fluid cytology collected was negative for malignancy. Note that, at that time, the patient had a total of 1.2 L of pleural fluid aspirated from the right lung without any complications. He is also known to have history of Hodgkin's lymphoma with a previous splenectomy followed by chemoradiation therapy this was performed in 1976 in 1977. He is known to have prostate cancer, hypothyroidism, hyperlipidemia. During this current admission, the patient was seen and evaluated by general surgery. Regarding his progressive abdominal distention and nausea and emesis. The patient during this current admission underwent a small bowel follow-through and the patient was found to have findings suspicious for partial versus complete obstruction. Based on that, the patient is current ly being considered for surgical exploration. He was supposed to go for surgery today and there was concern about his respiratory status as the patient had developed also bilateral pleural effusions. Based on that, pulmonary consultation was requested. He currently has an NG tube for decompression. He also has TPN for nutritional support. He is not receiving any form of antibiotics. He remains on oral Diflucan only. His white cell count is at 12 with a hemoglobin 12.5 and a platelet count of 369. BUN is at 20 with a creatinine 0.7. Sodium is at 139. Most recent echocardiogram that was done today showed impairment of LV function with an ejection fraction of 25 to 30%. There was also inferior wall hypokinesis and moderate MR and moderate aortic regurgitation and moderate to severe tricuspid regurgitation. The chest x-ray from today showing bilateral pleural effusion slightly worse on the left. The patient has an NG tube in place. On today's evaluation of 2023, the patient is being seen for a follow-up he is calm and comfortable on room air oxygen. I performed a left-sided thoracentesis on this patient yesterday with a total of 1.2 L of fluid drained. The right side will be done today as the patient is being prepped and optimized for surgery. He is still NPO. He has an NG tube in place. Output is still active. Abdomen is distended. It is not tender. Postprocedure chest x-ray showed no evidence of any pneumothorax. There is residual right-sided pleural effusion. BUN is at 21 with a creatinine of 0.7. Sodium level is at 136 and the patient remains on TPN for nutritional support. No other significant events overnight. Objective - Vital Signs Vital signs: Vital Signs Temp 97.7 F 08/25/23 02:00 Pulse 80 08/25/23 02:00 Resp 16 08/25/23 02:00 BP 148/74 08/25/23 02:00 Pulse Ox 96 08/25/23 02:00 FiO2 Intake & Output 08/24/23 08/25/23 08/25/23 18:59 06:59 18:59 Intake Total 0 1030 Output Total 3000 1600 Balance -3000 -570 Weight 72.5 kg 72.4 kg Intake: Intake, IV Titration 1030 Amount Fat Emulsion 20% 250 ml @ 250 20.833 mls/hr IV SuTh@ 1600 [facility] Rx#:[id number] Lactated Ringers 1,000 ml 240 @ 20 mls/hr IV .Q24H [facility] Rx#:[id number] Mvi, Adult No.4 with Vit 540 K 10 ml Trace (Conc-1Ml/ Dose) 1 ml Sodium Phosphate 15 mmol Sodium Acetate 10 meq Potassium Chloride 40 meq Calcium Gluconate 1 gm In Amino Acids 5 %/Dextrose 20 % 1 ,000 ml @ 45 mls/hr IV . [id number] [facility] Rx#:[id number] Oral 0 Output: Gastric Drainage 250 Drainage 1000 Head 1000 Urine 1700 1350 Oral Regurgitation 300 Other: Voiding Method Bedside Commode Bedside Commode Urinal Urinal Diaper Diaper Incontinent Incontinent - Exam GENERAL: Well-developed in no acute distress. Patient has an NG tube in place and the patient is currently on room air O2 nasal cannula with a pulse ox of 94% HEENT: No sclera icterus. Extraocular movements grossly intact. Moist buccal mucosa. Head is atraumatic, normocephalic. Hears conversational speech. No nasal drainage. NECK: Supple without lymphadenopathy. CHEST: Non-labored respirations and equal bilateral excursions. CARDIOVASCULAR: Palpable 2+ radial pulses. ABDOMEN: Distended. Mild tenderness with palpation MUSCULOSKELETAL: No clubbing or cyanosis. NEUROLOGIC: No focal or lateralizing signs. Cranial nerves II through XII grossly intact. PSYCH: Appropriate affect. Alert and oriented to person, place and time. SKIN: Well perfused. Good skin turgor. - Labs CBC & Chem 7: 08/24/23 06:41 08/25/23 06:26 Labs: Abnormal Lab Results - Last 24 Hours (Table) 08/24/23 08/24/23 08/25/23 Range/Units 06:41 12:08 00:00 WBC 12.01 H (4.50-10.00) X 10*3/uL Hgb 12.5 L (13.0-17.0) g/dL Hct 39.2 L (39.6-50.0) % MCHC 31.9 L (32.0-37.0) g/dL RDW 16.2 H (11.5-14.5) % Immature Gran # 0.16 H (0.00-0.04) X 10*3/uL Neutrophils # 9.97 H (1.80-7.70) X 10*3/uL Lymphocytes # 0.80 L (0.90-5.00) X 10*3/uL Sodium (137-145) mmol/L BUN (9-20) mg/dL Glucose (74-99) mg/dL POC Glucose (mg/dL) 133 H 146 H (70-110) mg/dL 08/25/23 Range/Units 06:26 WBC (4.50-10.00) X 10*3/uL Hgb (13.0-17.0) g/dL Hct (39.6-50.0) % MCHC (32.0-37.0) g/dL RDW (11.5-14.5) % Immature Gran # (0.00-0.04) X 10*3/uL Neutrophils # (1.80-7.70) X 10*3/uL Lymphocytes # (0.90-5.00) X 10*3/uL Sodium 136 L (137-145) mmol/L BUN 21 H (9-20) mg/dL Glucose 105 H (74-99) mg/dL POC Glucose (mg/dL) (70-110) mg/dL Assessment and Plan Plan: Abdominal pain/distention attributed to partial versus complete small bowel obstruction and the patient will need surgical exploration. Currently n.p.o. receiving TPN for nutritional support. Recent hospitalization for ischemic colitis/septic shock requiring prolonged hospitalization and the patient was readmitted ongoing abdominal pain and distention and suspected bowel obstruction. Bilateral pleural effusion left more than right, secondary to CHF. Previous thoracentesis was done on 2023 indicated a transudate. A total of 1.2 L of pleural fluid was aspirated from the right lung without any complications. The patient obviously has recurrent pleural effusions and the patient also underwent a left-sided thoracentesis on 08/13/2023 with a total of 1 L of fluid removed and fluid was not sent for analysis during the second thoracentesis CHF with systolic heart failure and ejection fraction of 25% the patient also has moderate mitral regurgitation, mild to moderate aortic regurgitation, moderate-severe tricuspid regurgitation with mild pulmonary hypertension. 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 No absolute cardiac contraindications for surgery. In terms of pulmonary status, draining the pleural fluid may benefit the patient in terms of postoperative care. I Keep NG tube in place Continue TPN for nutritional support I performed left-sided thoracentesis yesterday with a total of 1.2 L of fluid removed. Right side to be done today and the patient is going to be further optimized for surgery. He continues to have bowel obstruction. He remains NPO. NG tube is in place. The plan is to undergo a Laparotomy and surgical exploration.
--- NOTE | 2023-08-25 08:04 | P.PCN ---
Date of Procedure: 08/25/23 Operative Findings: Preoperative Diagnosis: Pleural effusion, right Postoperative Diagnosis: Pleural effusion, right generalized fluid Procedure(s) Performed: Thoracentesis, right Anesthesia: local Surgeon: Faye Hanson Pathology: other Condition: stable Disposition: floor Operative Findings: A time out was performed and the chest x-ray was reviewed, the appropriate side was confirmed and marked. My hands were washed immediately prior to the procedure. I wore a surgical cap, mask with protective eyewear, sterile gown and sterile gloves throughout the procedure. The patient was prepped and draped in a sterile manner using chlorhexidine scrub after the appropriate level was percussed and confirmed by ultrasound. 1% lidocaine was used to anesthesize the skin, subcutaneous tissue, superior aspect of the rib periosteum and parietal pleura. A finder needle was then introduced over the superior aspect of the rib to locate the pleural fluid; 2colored fluid was aspirated at a depth of approximately 2 cm. A 10-blade scalpel was used to abdirizak the skin at the insertion site. The Igmy-a-Oxtljfza needle was then introduced through the skin incision into the pleural space using negative aspiration pressure and the red colometric indicator to confirm appropriate positioning of the needle. The thoracentesis catheter was then threaded without difficulty. 1100 ml of turbid colored fluid was removed without difficulty. The catheter was then removed. No immediate complications were noted during the procedure. A post-procedure chest x-ray is pending at the time of this note. The fluid will not be sent for studies. Estimated blood loss is 0cc
--- NOTE | 2023-08-25 08:47 | PN ---
PROGRESS NOTE HISTORY OF PRESENT ILLNESS: Shamar is a 72-year-old gentleman with history of cardiomyopathy with chronic systolic heart failure, who is admitted to the hospital with bowel obstruction and is to undergo surgery and we were consulted for preop cardiac evaluation. On an echocardiogram I performed, he had severe LV systolic dysfunction and we also found large pleural effusion. I consulted Pulmonary for thoracentesis and the patient underwent thoracentesis and 1100 mL of fluid was removed today from the right side. The patient appears comfortable, stable hemodynamically. PHYSICAL EXAMINATION: VITAL SIGNS: Heart rate is 80 beats per minute, blood pressure is 140/74, respiratory rate 16. CHEST: Reveals good air entry at the right base. Diminished air entry at the left base. HEART: Reveals first and second heart sounds. No gallop. ABDOMEN: Soft. EXTREMITIES: Did not reveal any edema. ASSESSMENT: 1. Chronic systolic heart failure with pleural effusion. 2. Ischemic cardiomyopathy. 3. Bowel obstruction. 4. Dyslipidemia. 5. Hypertension. PLAN: I will treat the patient with Lasix. Continue the beta blockers. Continue Lipitor and TAINA inhibitor. The patient is doing better, status post thoracentesis. MMODL / IJN: [id number] /
--- NOTE | 2023-08-25 11:51 | P.PN ---
Subjective Progress Note Date: 08/25/23 Patient is a 72-year-old male with a history of Hodgkin's lymphoma status post chemo radiation and splenectomy in the 1970s, A Fib, HLD, CAD with myocardial infarction and CABG, and prostate cancer who presented to the emergency department with complaints of nausea and vomiting. Patient was hospitalized here from 08/01/23 through 08/17/23 for ileus and possible pneumonia. He was treated conservatively. On arrival to the ER he was tachycardic with a pulse of 107. Laboratory in the ER consisted of CBC, coags, and CMP and was remarkable for sodium 135, lactic acid 2.3, and AST of 60. Abdominal x-ray was consistent with ileus. NG tube was placed. Arrangements were made for admission. He underwent CT AP which shows high density contrast into the rectum suggesting no complete obstruction, but could still be a partial obstruction along with anasarca of the soft tissues. 08/22 Patient was seen and examined. He reports 2/10 abdominal pain. Currently with NG tube to suction. Surgery recommends small bowel follow through with Gastrografin. 08/23 Patient was seen and examined. Small bowel follow through seems to suggest partial SBO. Currently with NG tube to suction. Plans for PICC line and TPN for nutrition. CBC WBC 14.7, Hg 11.2, Hct 35, Plt 496. BMP K 3.4, bicarb 31, BUN 23, glu 106, alb 2.5, T. protein 5.3. Mag 2.4. Phos 2.9. Ionized Ca 4.8. Patient was seen and examined. NG tube to suction. Reports no pain, N/V. Discussed with Kena COVER CUTTER MACHINE, recommending surgery. Cardiology consulted, intermediate risk, no absolute contraindication for surgery. Echo shows EF 25-30% with inf erior wall hypokinesis, moderate MR/AR, large pleural effusion. Pulmonary consulted for management of pleural effusion. CBC WBC 12.01, Hg 12.5, Hct 39.2. BMP glu 134. Phos 2.3. Mag 2.3. 08/24 Patient was seen and examined. Underwent thoracentesis yesterday for left pleural effusion with Dr. Hanson, 1.2L fluid. Currently with NG tube to suction. Discussed with dietitian, plans to increase TPN. BMP Na 136, BUN 21, glu 105. Phos 2.7. Mag 1.9. Vital signs reviewed General: Nontoxic, no distress, NG tube Cardiovascular: S1S2 reg, no murmur Lungs: CTA bilateral, no rhonchi, no rales, no accessory muscle use Abdominal: Soft, nontender to palpation, no guarding Ext: No gross muscle atrophy, no edema b/l lower extremities, no contractures Neuro: no focal neuro deficits Psych: Alert, oriented, appropriate affect Based on my assessment of this patient, this patient meets a moderate complexity level of care. Patient has an acute diagnosis of recurrent illeus that poses a threat to life or bodily function. Ileus vs SBO: NGT in place to suction. Small bowel follow through with Gastrografin suggesting partial SBO. Morphine 4 mg IV Q4H PRN pain. Zofran 4 mg IV Q8H PRN for N/V. Cleared by Cardiology for OR. Surgery on board. Pleural effusion: Pulmonary consult. s/p left sided thoracentesis on . Protein calorie malnutrition: Plans for PICC line and TPN for nutrition. Lactic acidosis, resolved Hypoglycemia due to poor oral intake: D5 half-normal saline DC'd since patient is on TPN. Acute on chronic systolic CHF, EF 30 to 35%: Lopressor 12.5 mg twice daily, lisinopril 5 mg daily, Aldactone 50 mg daily Thrombocytosis, reactive Chronic: Atrial fibrillation, CAD with history of myocardial infarction status post CABG, Hypothyroidism, Dyslipidemia CODE STATUS: FULL CODE DVT Prophylaxis: Lovenox GI Prophylaxis: Designated medical POA if patient is not able to make medical decisions for themselves: I have reviewed the following baby registry sales consultant notes: Surgery, Pulmonary, procedure no te, Cardiology I have reviewed the results of the following tests: CBC, BMP, Phos, Mag I have ordered the following tests: Daily CBC, BMP, Mag, Phos, ionized Ca while receiving TPN. I have discussed the care of this patient with the following independent historian: Dietitian. I have independently interpreted the following test below: I have discussed the management of this patient with the following physician: Kena ARIAS regarding plans for surgery. Objective - Vital Signs Vital signs: Vital Signs Temp 97.8 F 08/25/23 07:38 Pulse 96 08/25/23 10:00 Resp 15 08/25/23 10:00 BP 109/63 08/25/23 07:38 Pulse Ox 94 L 08/25/23 07:38 FiO2 Intake & Output 08/24/23 08/25/23 08/25/23 18:59 06:59 18:59 Intake Total 0 1030 Output Total 3000 1600 Balance -3000 -570 Weight 72.5 kg 72.4 kg 72.4 kg Intake: Intake, IV Titration 1030 Amount Fat Emulsion 20% 250 ml @ 250 20.833 mls/hr IV SuTh@ 1600 [facility] Rx#:[id number] Lactated Ringers 1,000 ml 240 @ 20 mls/hr IV .Q24H [facility] Rx#:[id number] Mvi, Adult No.4 with Vit 540 K 10 ml Trace (Conc-1Ml/ Dose) 1 ml Sodium Phosphate 15 mmol Sodium Acetate 10 meq Potassium Chloride 40 meq Calcium Gluconate 1 gm In Amino Acids 5 %/Dextrose 20 % 1 ,000 ml @ 45 mls/hr IV . [id number] Rx#:[id number] Oral 0 Output: Gastric Drainage 250 Drainage 1000 Head 1000 Urine 1700 1350 Oral Regurgitation 300 Other: Voiding Method Bedside Commode Bedside Commode Bedside Commode Urinal Urinal Urinal Diaper Diaper Diaper Incontinent Incontinent Incontinent - Labs CBC & Chem 7: 08/24/23 06:41 08/25/23 06:26 Labs: Abnormal Lab Results - Last 24 Hours (Table) 08/24/23 08/25/23 08/25/23 Range/Units 12:08 00:00 06:26 Sodium 136 L (137-145) mmol/L BUN 21 H (9-20) mg/dL Glucose 105 H (74-99) mg/dL POC Glucose (mg/dL) 133 H 146 H (70-110) mg/dL
[2023-08-25 13:00] LABS: Glucose,Whole Blood 117 mg/dL (70-110)
--- NOTE | 2023-08-25 13:01 | XR ---
EXAMINATION TYPE: XR chest 1V DATE OF EXAM: 08/25/2023 8:23 AM CLINICAL INDICATION:Male, 72 years old with history of post thoracentesis; COMPARISON: Chest radiographs from 08/24/2023 TECHNIQUE: XR chest 1V Frontal view of the chest. FINDINGS: Lungs/Pleura: There is no evidence of pleural effusion, focal consolidation, or pneumothorax. Pulmonary vascularity: Unremarkable. Heart/mediastinum: Cardiomediastinal silhouette is unremarkable. Atherosclerotic calcifications are seen in the aorta. Single-lead cardiac conduction device overlying the left hemithorax with lead proj ecting over the right ventricle. Musculoskeletal: No acute osseous pathology. Other findings: None Lines/Tubes: Nasogastric tube with its distal tip and side-port projecting under the diaphragm. Right-sided PICC line with distal tip at the cavoatrial junction. IMPRESSION: Decreased right pleural effusion with improved aeration.
--- NOTE | 2023-08-25 15:14 | P.PN ---
Subjective Progress Note Date: 08/25/23 CHIEF COMPLAINT: Abdominal pain HISTORY OF PRESENT ILLNESS: Patient admitted to the hospital with small bowel obstruction. He has NG tube in place. Surgery canceled yesterday due to pleural effusions. Patient had right thoracentesis yesterday and a left thoracentesis this morning. He reports that he is breathing easier. Afebrile. Currently on room air satting at 94% PHYSICAL EXAM: VITAL SIGNS: Reviewed GENERAL: Well-developed in no acute distress. HEENT: No sclera icterus. Extraocular movements grossly intact. Moist buccal mucosa. Head is atraumatic, normocephalic. Hears conversational speech. No nasal drainage. NECK: Supple without lymphadenopathy. CHEST: Non-labored respirations and equal bilateral excursions. CARDIOVASCULAR: Palpable 2+ radial pulses. ABDOMEN: Distended. Mild tenderness with palpation MUSCULOSKELETAL: No clubbing or cyanosis. NEUROLOGIC: No focal or lateralizing signs. Cranial nerves II through XII grossly intact. PSYCH: Appropriate affect. Alert and oriented to person, place and time. SKIN: Well perfused. Good skin turgor. ASSESSMENT: 1. Partial small bowel obstruction versus complete obstruction 2. Recent hospitalization with possible ischemic colitis versus infectious colitis 3. Recent ileus versus partial small bowel obstruction 4. History of splenectomy 5. History of CHF with reduced EF 25 to 30% 6. History of coronary artery disease PLAN: -Patient scheduled for exploratory laparotomy with bowel resection Monday, August 28, [address] Andino -Continue to medically optimize patient -Continue NG tube for decompression -Keep patient n.p.o. -Continue TPN for nutrition support -Continue antiemetics as needed -Thiamine 100 mg IVP daily added per dietitian recommendations -DVT prophylaxis Lovenox Physician Co Founder And Chief Strategy Officer note has been reviewed by physician. Signing provider agrees with the documented findings, assessment, and plan of care. Objective - Vital Signs Vital signs: Vital Signs Temp 97.8 F 08/25/23 07:38 Pulse 96 08/25/23 10:00 Resp 15 08/25/23 10:00 BP 109/63 08/25/23 07:38 Pulse Ox 94 L 08/25/23 07:38 FiO2 Intake & Output 08/24/23 08/25/23 08/25/23 18:59 06:59 18:59 Intake Total 0 1030 Output Total 3000 1600 200 Balance -3000 -570 -200 Weight 72.5 kg 72.4 kg 72.4 kg Intake: Intake, IV Titration 1030 Amount Fat Emulsion 20% 250 ml @ 250 20.833 mls/hr IV SuTh@ 1600 [facility] Rx#:[id number] Lactated Ringers 1,000 ml 240 @ 20 mls/hr IV .Q24H [facility] Rx#:[id number] Mvi, Adult No.4 with Vit 540 K 10 ml Trace (Conc-1Ml/ Dose) 1 ml Sodium Phosphate 15 mmol Sodium Acetate 10 meq Potassium Chloride 40 meq Calcium Gluconate 1 gm In Amino Acids 5 %/Dextrose 20 % 1 ,000 ml @ 45 mls/hr IV . [id number] [facility] Rx#:[id number] Oral 0 Output: Gastric Drainage 250 200 Drainage 1000 Head 1000 Urine 1700 1350 Oral Regurgitation 300 Other: Voiding Method Bedside Commode Bedside Commode Bedside Commode Urinal Urinal Urinal Diaper Diaper Diaper Incontinent Incontinent Incontinent - Labs CBC & Chem 7: 08/24/23 06:41 08/25/23 06:26 Labs: Abnormal Lab Results - Last 24 Hours (Table) 08/25/23 08/25/23 08/25/23 Range/Units 00:00 06:26 12:58 Sodium 136 L (137-145) mmol/L BUN 21 H (9-20) mg/dL Glucose 105 H (74-99) mg/dL POC Glucose (mg/dL) 146 H 117 H (70-110) mg/dL
[2023-08-25] MEDS: 1: MVI, ADULT NO.4 WITH VIT K 10 ML, TRACE (CONC-1ML/DOSE) 1 ML, SODIUM PHOSPHATE 15 MMO IV SCH (15:47)
--- NOTE | 2023-08-25 16:04 | P.PN ---
Progress Note - Text Progress Note Date: 08/25/23 Further discussion with mechanical manufacturing technician and rental sales associate regarding patient's pulmonary status. I am advised to expedite his procedure as soon as medically cleared. Anticipated intervention for Monday exploratory laparotomy with possible bowel resection due to elevated risk for recurrent bilateral pleural effusions. May need ICU care postoperatively.
[2023-08-25 17:57] LABS: Glucose,Whole Blood 107 mg/dL (70-110)
[2023-08-26 00:04] LABS: Glucose,Whole Blood 114 mg/dL (70-110)
[2023-08-26 05:45] LABS: Glucose,Whole Blood 110 mg/dL (70-110)
[2023-08-26 07:20] LABS: ALT 31 U/L (4-49); AST 50 U/L (17-59); African American GFR (CKD) >90 (>60 ml/min/1.73 sqM); Albumin 2.3 g/dL (3.5-5.0); Albumin/Globulin Ratio 0.8; Alkaline Phosphatase 131 U/L (38-126); Anion Gap 5 mmol/L; Blood Urea Nitrogen 24 mg/dL (9-20); Calcium 8.6 mg/dL (8.4-10.2); Carbon Dioxide 31 mmol/L (22-30); Chloride 99 mmol/L (98-107); Globulin 2.9 g/dL; Glucose 99 mg/dL (74-99); Non-African American GFR(CKD) >90 (>60 ml/min/1.73 sqM); Potassium 3.5 mmol/L (3.5-5.1); Sodium 135 mmol/L (137-145); Total Bilirubin 0.6 mg/dL (0.2-1.3); Total Protein 5.2 g/dL (6.3-8.2)
[2023-08-26 07:21] LABS: Magnesium 1.8 mg/dL (1.6-2.3); Phosphorus 3.4 mg/dL (2.5-4.5)
--- NOTE | 2023-08-26 11:30 | P.PN ---
Subjective Progress Note Date: 08/26/23 Patient is a 72-year-old male with a history of Hodgkin's lymphoma status post chemo radiation and splenectomy in the 1970s, A Fib, HLD, CAD with myocardial infarction and CABG, and prostate cancer who presented to the emergency department with complaints of nausea and vomiting. Patient was hospitalized here from 08/01/23 through 08/17/23 for ileus and possible pneumonia. He was treated conservatively. On arrival to the ER he was tachycardic with a pulse of 107. Laboratory in the ER consisted of CBC, coags, and CMP and was remarkable for sodium 135, lactic acid 2.3, and AST of 60. Abdominal x-ray was consistent with ileus. NG tube was placed. Arrangements were made for admission. He underwent CT AP which shows high density contrast into the rectum suggesting no complete obstruction, but could still be a partial obstruction along with anasarca of the soft tissues. 08/22 Patient was seen and examined. He reports 2/10 abdominal pain. Currently with NG tube to suction. Surgery recommends small bowel follow through with Gastrografin. 08/23 Patient was seen and examined. Small bowel follow through seems to suggest partial SBO. Currently with NG tube to suction. Plans for PICC line and TPN for nutrition. CBC WBC 14.7, Hg 11.2, Hct 35, Plt 496. BMP K 3.4, bicarb 31, BUN 23, glu 106, alb 2.5, T. protein 5.3. Mag 2.4. Phos 2.9. Ionized Ca 4.8. Patient was seen and examined. NG tube to suction. Reports no pain, N/V. Discussed with Kena KILN HEAD HOUSE OPERATOR, recommending surgery. Cardiology consulted, intermediate risk, no absolute contraindication for surgery. Echo shows EF 25-30% with inf erior wall hypokinesis, moderate MR/AR, large pleural effusion. Pulmonary consulted for management of pleural effusion. CBC WBC 12.01, Hg 12.5, Hct 39.2. BMP glu 134. Phos 2.3. Mag 2.3. 08/24 Patient was seen and examined. Underwent thoracentesis yesterday for right pleural effusion with Dr. Hanson, 1.2L fluid. Currently with NG tube to suction. Discussed with dietitian, plans to increase TPN. BMP Na 136, BUN 21, glu 105. Phos 2.7. Mag 1.9. 08/25 Patient was seen and examined. Currently with NG tube to suction. Surgery recommends exploratory laparotomy on Monday. CMP Na 135, bicarb 31, BUN 24, alk phos 131, T. protein 5.2, alb 2.3. CXR done yesterday confirms decreased right sided pleural effusion. Vital signs reviewed General: Nontoxic, no distress, NG tube Cardiovascular: S1S2 reg, no murmur Lungs: CTA bilateral, no rhonchi, no rales, no accessory muscle use Abdominal: Soft, nontender to palpation, no guarding Ext: No gross muscle atrophy, no edema b/l lower extremities, 2+ edema LUE no contractures Neuro: no focal neuro deficits Psych: Alert, oriented, appropriate affect Based on my assessment of this patient, this patient meets a moderate complexity level of care. Patient has an acute diagnosis of recurrent illeus that poses a threat to life or bodily function. Ileus vs SBO: NGT in place to suction. Small bowel follow through with Gastrografin suggesting partial SBO. Morphine 4 mg IV Q4H PRN pain. Zofran 4 mg IV Q8H PRN for N/V. Cleared by Cardiology for OR. Surgery on board, plans for exploratory laparotomy on Monday. Pleural effusion: Pulmonary consult. s/p right sided thoracentesis on . Protein calorie malnutrition: Plans for PICC line and TPN for nutrition. Lactic acidosis, resolved Hypoglycemia due to poor oral intake: D5 half-normal saline DC'd since patient is on TPN. Acute on chronic systolic CHF, EF 30 to 35%: Lopressor 12.5 mg twice daily, lisinopril 5 mg daily, Aldactone 50 mg daily. Cardiology on board. Thrombocytosis, reactive Chronic: Atrial fibrillation, CAD with history of myocardial infarction status post CABG, Hypothyroidism, Dyslipidemia CODE STATUS: FULL CODE DVT Prophylaxis: Lovenox GI Prophylaxis: Designated medical POA if patient is not able to make medical decisions for themselves: I have reviewed the following salesforce consultant notes: Surgery, Pulmonary, Cardiology I have reviewed the results of the following tests: CMP. I have ordered the following tests: Daily CMP, Mag, Phos while receiving TPN. I have discussed the care of this patient with the following independent historian: I have independently interpreted the following test below: CXR. I have discussed the management of this patient with the following physician: Objective - Vital Signs Vital signs: Vital Signs Temp 98.2 F 08/26/23 02:00 Pulse 68 08/26/23 02:00 Resp 15 08/26/23 02:00 BP 101/61 08/26/23 02:00 Pulse Ox 93 L 08/26/23 02:00 FiO2 Intake & Output 08/25/23 08/26/23 08/26/23 18:59 06:59 18:59 Intake Total 0 Output Total 1200 1200 Balance -1200 -1200 Weight 72.4 kg 69.5 kg Intake: Oral 0 Output: Gastric Drainage 200 700 Drainage 350 Head 350 Urine 300 500 Oral Regurgitation 350 Other: Voiding Method Bedside Commode Bedside Commode Urinal Urinal Diaper Diaper Incontinent Incontinent # Bowel Movements 1 - Labs CBC & Chem 7: 08/24/23 06:41 08/26/23 06:23 Labs: Abnormal Lab Results - Last 24 Hours (Table) 08/25/23 08/26/23 08/26/23 Range/Units 12:58 00:02 06:23 Sodium 135 L (137-145) mmol/L Carbon Dioxide 31 H (22-30) mmol/L BUN 24 H (9-20) mg/dL POC Glucose (mg/dL) 117 H 114 H (70-110) mg/dL Alkaline Phosphatase 131 H (38-126) U/L Total Protein 5.2 L (6.3-8.2) g/dL Albumin 2.3 L (3.5-5.0) g/dL
--- NOTE | 2023-08-26 11:46 | P.PN ---
Subjective Progress Note Date: 08/26/23 Principal diagnosis: CHF The patient is a pleasant 72-year-old gentleman with a past medical history significant for coronary artery disease and cardiomyopathy and congestive heart failure who was admitted to the hospital with small bowel obstruction. He developed heart failure. The echo showed severe cardiomyopathy with EF around 20%. August 26, 2023 The patient was seen and evaluated this morning. He has severe left upper extremity edema. I am going to start the patient on Lasix IV at the small dose 20 mg twice daily and continue monitoring the kidney function and electrolytes and also obtain a venous duplex study to rule out DVT. Meanwhile continue the current medical regimen. He cannot take any oral medication at this point. The physical examination is remarkable for severe left upper extremity edema. Assessment Coronary artery disease Small bowel obstruction Severe cardiomyopathy Bilateral pleural effusion Status post pleurocentesis Left upper extremity edema Multiple comorbid conditions Plan Start the patient on Lasix IV Rule out DVT in the left upper extremity by obtaining venous duplex study Continue monitor the kidney function and electrolytes Follow-up with the patient Objective - Vital Signs Vital signs: Vital Signs Temp 97.6 F 08/26/23 07:28 Pulse 106 H 08/26/23 07:28 Resp 16 08/26/23 07:28 BP 123/74 08/26/23 07:28 Pulse Ox 98 08/26/23 07:28 FiO2 Intake & Output 08/25/23 08/26/23 08/26/23 18:59 06:59 18:59 Intake Total 0 Output Total 1200 1200 Balance -1200 -1200 Weight 72.4 kg 69.5 kg Intake: Oral 0 Output: Gastric Drainage 200 700 Drainage 350 Head 350 Urine 300 500 Oral Regurgitation 350 Other: Voiding Method Bedside Commode Bedside Commode Indwelling Catheter Urinal Urinal Diaper Diaper Incontinent Incontinent # Bowel Movements 1 - Labs CBC & Chem 7: 08/24/23 06:41 08/26/23 06:23 Labs: Abnormal Lab Results - Last 24 Hours (Table) 08/25/23 08/26/23 08/26/23 Range/Units 12:58 00:02 06:23 Sodium 135 L (137-145) mmol/L Carbon Dioxide 31 H (22-30) mmol/L BUN 24 H (9-20) mg/dL POC Glucose (mg/dL) 117 H 114 H (70-110) mg/dL Alkaline Phosphatase 131 H (38-126) U/L Total Protein 5.2 L (6.3-8.2) g/dL Albumin 2.3 L (3.5-5.0) g/dL
[2023-08-26 11:59] LABS: Glucose,Whole Blood 125 mg/dL (70-110)
[2023-08-26] MEDS: FUROSEMIDE 10 MG/ML 2 ML VIAL IV SCH (13:23)
--- NOTE | 2023-08-26 13:25 | US ---
EXAMINATION TYPE: US venous doppler duplex UE LT DATE OF EXAM: 08/26/2023 COMPARISON: Left upper extremity venous ultrasound August 15, 2023 CLINICAL INDICATION: Male, 72 years old with history of rule out DVT; Swelling, no redness SIDE PERFORMED: Left Left Arm: Negative for DVT, edema visualized Grayscale, color doppler, spectral doppler imaging performed of the deep veins of the left upper extr emity. There is normal flow, compressibility and vascular waveforms. IMPRESSION: No ultrasound evidence for acute deep or superficial venous thrombosis in the left upper extremity. [id number] diffuse subcutaneous edema distally is redemonstrated towards end of st udy similar to prior.
--- NOTE | 2023-08-26 14:06 | P.PN ---
Subjective Progress Note Date: 08/26/23 TAHIREON. No N/V. No F/C. No worsening abdominal pain. No flatus or BM. Voiding without issue. Objective - Vital Signs Vital signs: Vital Signs Temp 97.3 F L 08/26/23 13:20 Pulse 94 08/26/23 13:20 Resp 17 08/26/23 13:20 BP 133/79 08/26/23 13:20 Pulse Ox 98 08/26/23 13:20 FiO2 Intake & Output 08/25/23 08/26/23 08/26/23 18:59 06:59 18:59 Intake Total 0 Output Total 1200 1200 Balance -1200 -1200 Weight 72.4 kg 69.5 kg 69.5 kg Intake: Oral 0 Output: Gastric Drainage 200 700 Drainage 350 Head 350 Urine 300 500 Oral Regurgitation 350 Other: Voiding Method Bedside Commode Bedside Commode Indwelling Catheter Urinal Urinal Diaper Diaper Incontinent Incontinent # Bowel Movements 1 - Exam Gen: AxO, NAD Pulm; non-labored respirations Abd: soft, distended. Tender diffusely. No guarding/rebound/rigidity NGT: intact producing bilious output Extrem; no edema seen - Labs CBC & Chem 7: 08/24/23 06:41 08/26/23 06:23 Labs: Abnormal Lab Results - Last 24 Hours (Table) 08/26/23 08/26/23 08/26/23 Range/Units 00:02 06:23 11:57 Sodium 135 L (137-145) mmol/L Carbon Dioxide 31 H (22-30) mmol/L BUN 24 H (9-20) mg/dL POC Glucose (mg/dL) 114 H 125 H (70-110) mg/dL Alkaline Phosphatase 131 H (38-126) U/L Total Protein 5.2 L (6.3-8.2) g/dL Albumin 2.3 L (3.5-5.0) g/dL Assessment and Plan Assessment: ASSESSMENT: 1. Partial small bowel obstruction versus complete obstruction 2. Recent hospitalization with possible ischemic colitis versus infectious colitis 3. Recent ileus versus partial small bowel obstruction 4. History of splenectomy 5. History of CHF with reduced EF 25 to 30% 6. History of coronary artery disease Plan: -Patient scheduled for exploratory laparotomy with bowel resection Monday, August 28, [address] Andino -Continue to medically optimize patient -Continue NG tube for decompression -Keep patient n.p.o. -Continue TPN for nutrition support -Continue antiemetics as needed -Thiamine 100 mg IVP daily added per dietitian recommendations -DVT ppx: Zeinab Bryant MD General Surgery
[2023-08-26] MEDS: 1: MVI, ADULT NO.4 WITH VIT K 10 ML, TRACE (CONC-1ML/DOSE) 1 ML, SODIUM PHOSPHATE 15 MMO IV SCH (17:01)
[2023-08-26 17:14] LABS: Glucose,Whole Blood 102 mg/dL (70-110)
[2023-08-26 23:32] LABS: Glucose,Whole Blood 90 mg/dL (70-110)
[2023-08-27 05:04] LABS: Glucose,Whole Blood 112 mg/dL (70-110)
[2023-08-27 06:38] LABS: Magnesium 1.6 mg/dL (1.6-2.3); Phosphorus 3.8 mg/dL (2.5-4.5)
[2023-08-27 06:39] LABS: ALT 89 U/L (4-49); AST 140 U/L (17-59); African American GFR (CKD) >90 (>60 ml/min/1.73 sqM); Albumin 2.3 g/dL (3.5-5.0); Albumin/Globulin Ratio 0.8; Alkaline Phosphatase 223 U/L (38-126); Anion Gap 9 mmol/L; Blood Urea Nitrogen 31 mg/dL (9-20); Calcium 8.6 mg/dL (8.4-10.2); Carbon Dioxide 23 mmol/L (22-30); Chloride 101 mmol/L (98-107); Globulin 2.9 g/dL; Glucose 113 mg/dL (74-99); Non-African American GFR(CKD) >90 (>60 ml/min/1.73 sqM); Potassium 3.7 mmol/L (3.5-5.1); Sodium 133 mmol/L (137-145); Total Bilirubin 0.8 mg/dL (0.2-1.3); Total Protein 5.2 g/dL (6.3-8.2)
[2023-08-27] MEDS: IV FLUID CONTINUATION 1,000 ML IV ONE (09:33)
[2023-08-27] MEDS: MIDAZOLAM 2 MG/2 ML VIAL IVP ONE (10:00)
--- NOTE | 2023-08-27 10:38 | P.PN ---
Subjective Progress Note Date: 08/27/23 CHIEF COMPLAINT: Bowel obstruction HISTORY OF PRESENT ILLNESS: The patient is a 72-year-old male with generalized debility who comes in with bowel obstruction. Patient had previous hospitalization prolonged for 2 to 3 weeks due to ileus. He was readmitted due to obstructive symptoms. Upper GI confirmed obstruction. Patient has pre- existing pulmonary bilateral pleural effusions recently tapped. He also has pre-existing heart disease with severe ischemic cardiomyopathy and decreased ejection fraction less than 40%. Patient this morning now going into atrial fibrillation. ROS: No reports of nausea and vomiting. No bowel movements. No fevers or chills. No new chest pain. No productive sputum PHYSICAL EXAM: VITAL SIGNS: Reviewed CONSTITUTIONAL: Well developed and in no acute distress. EYES: Conjuctivae without sclera icterus. Extraocular movements grossly intact. HEAD, EARS, NOSE, THROAT: Moist buccal mucosa. Head is atraumatic, normocephalic. Hears conversational speech. No nasal drainage. RESPIRATORY: Non-labored respirations and equal bilateral excursions. CARDIOVASCULAR: Palpable 2+ radial pulses. ABDOMEN: Mildly distended. No diffuse peritonitis. Generalized tenderness. MUSCULOSKELETAL: No gross deformity of the lower extremities noted. No clubbing. No cyanosis. SKIN: Good skin turgor. Well perfused. NEUROLOGIC: Cranial nerves II through XII grossly intact. No focal or lateralizing signs. PSYCH: Appropriate affect. Alert and oriented to person, place and time. CLINICAL LABS: Reviewed. Previous WBC elevated 12.5, leukocytosis. Hemoglobin 12.5, mild anemia. Potassium within normal limits. ASSESSMENT: 1. Small bowel obstruction 2. New atrial fibrillation 3. Bilateral pleural effusions 4. Ischemic cardiomyopathy with decreased ejection fraction 5. History of Hodgkin's lymphoma status postradiation PLAN: 1. Extended discussion was provided with his brother Pieter regarding advance directive. His brother reports that he is by default power of business attorney. 2. With new onset atrial fibrillation, arterial line being placed per anesth esia. 3. Recommend postoperative recovery in intensive care unit. 4. Prolonged intubation, parenteral nutrition described, possible bowel resection described 5. Patient extremely elevated risk due to pre-existing comorbidities. 6. All questions addressed with his brother Pieter. Patient was to proceed with surgery. Patient is full code. May contact brothfercho Stapleton at [phone] Objective - Vital Signs Vital signs: Vital Signs Temp 97.8 F 08/27/23 07:33 Pulse 62 08/27/23 09:45 Resp 20 08/27/23 09:45 BP 115/56 08/27/23 09:45 Pulse Ox 98 08/27/23 09:45 FiO2 Intake & Output 08/26/23 08/27/23 08/27/23 18:59 06:59 18:59 Intake Total 858 Output Total 1200 1900 Balance -1200 -1042 Weight 69.5 kg 69.5 kg Intake: Intake, IV Titration 858 Amount Mvi, Adult No.4 with Vit 858 K 10 ml Trace (Conc-1Ml/ Dose) 1 ml Sodium Phosphate 15 mmol Sodium Acetate 10 meq Potassium Chloride 40 meq Calcium Gluconate 1 gm In Amino Acids 5 %/Dextrose 20 % 1 ,000 ml @ 90 mls/hr IV . BY DURATION [facility] Rx#: [id number] Output: Gastric Drainage 350 Urine 850 1900 Other: Voiding Method Indwelling Catheter Indwelling Catheter Indwelling Catheter # Bowel Movements 1 - Labs CBC & Chem 7: 08/24/23 06:41 08/27/23 05:42 Labs: Abnormal Lab Results - Last 24 Hours (Table) 08/26/23 08/27/23 08/27/23 Range/Units 11:57 05:03 05:42 Sodium 133 L (137-145) mmol/L BUN 31 H (9-20) mg/dL Glucose 113 H (74-99) mg/dL POC Glucose (mg/dL) 125 H 112 H (70-110) mg/dL AST 140 H (17-59) U/L ALT 89 H (4-49) U/L Alkaline Phosphatase 223 H (38-126) U/L Total Protein 5.2 L (6.3-8.2) g/dL Albumin 2.3 L (3.5-5.0) g/dL
[2023-08-27] MEDS ORDERED: HEPARIN SODIUM,PORCINE 5,000 UNIT/ML 1 ML VIAL ONE (10:59)
[2023-08-27] MEDS ORDERED: CALCIUM CHLORIDE 100 MG/ML 10 ML SYRINGE ONE (10:59)
[2023-08-27] MEDS ORDERED: NOREPINEPHRINE 1 MG/ML 4 ML VIAL IV ONE (10:59)
[2023-08-27] MEDS ORDERED: SODIUM BICARB 8.4% 50 ML SYR (1 MEQ/ML) ONE (10:59)
[2023-08-27] MEDS ORDERED: PROPOFOL 10 MG/ML 20 ML VIAL IV ONE (10:59)
[2023-08-27] MEDS ORDERED: VASOPRESSIN 20 UNIT/ML 1 ML VIAL ONE (10:59)
[2023-08-27] MEDS ORDERED: ROCURONIUM 10 MG/ML (5 ML VIAL) IV ONE (10:59)
[2023-08-27] MEDS ORDERED: SUCCINYLCHOLINE CHLORIDE 200 MG/10 ML VIAL IV ONE (10:59)
[2023-08-27] MEDS ORDERED: fentaNYL (PF) 50 MCG/ML 2 ML AMP ONE (10:59)
[2023-08-27] MEDS ORDERED: LIDOCAINE 1% INJ 10MG/ML (20 ML MDV) ONE (10:59)
[2023-08-27] MEDS ORDERED: KETAMINE HCL IN 0.9 % NACL 50 MG/5 ML SYRINGE ONE (10:59)
[2023-08-27] MEDS ORDERED: PHENYLEPHRINE 10 MG/ML VIAL ONE (10:59)
[2023-08-27] MEDS ORDERED: ALBUMIN HUMAN 5% (25gm) 500 ML VIAL IVPB ONE (10:59)
--- NOTE | 2023-08-27 11:05 | P.ANPRN ---
Procedure Note - Anesthesia - Invasive Line Right Arterial Line Time Out Performed: Yes Date of Procedure: 08/27/23 Time of Procedure: 10:20 Location of Patient: PreOp Preparation: Sterile Prep Arterial Line Location: Radial Ultrasound Used: Yes Purpose - Visualization and Identification of Vasculature: Yes Image Stored and Saved: Yes Narrative: Invasive line placement per sterile protocol utilized.
--- NOTE | 2023-08-27 11:07 | P.ANPRN ---
Procedure Note - Anesthesia - Invasive Line Right Central Line Time Out Performed: Yes Date of Procedure: 08/27/23 Time of Procedure: 10:35 Location of Patient: PreOp Preparation: Sterile Prep Central Line Location: Internal Jugular Ultrasound Used: Yes Purpose - Visualization and Identification of Vasculature: Yes Image Stored and Saved: Yes Narrative: Invasive line placement per sterile protocol utilized.AttemptX1. CXR post procedure reviewed.
--- NOTE | 2023-08-27 11:14 | XR ---
EXAMINATION TYPE: XR chest 1V confirm line plcmt DATE OF EXAM: 08/27/2023 11:06 AM CLINICAL INDICATION:Male, 72 years old with history of CENTRAL LINE; [facility] COMPARISON: Chest radiographs from 08/25/2023. TECHNIQUE: XR chest 1V confirm line plcmt Frontal view of the chest. FINDINGS: Lungs/Pleura: There is no evidence of pleural effusion, focal consolidation, or pneumothorax. Pulmonary vascularity: Unremarkable. Heart/mediastinum: Cardiomediastinal silhouette is unremarkable. Atherosclerotic calcifications are seen in the aorta. Single-lead cardiac conduction device overlying the left hemithorax with lead proj ecting over the right ventricle. Musculoskeletal: No acute osseous pathology. Midline sternotomy wires are noted. Other findings: Suture in the upper abdomen. Lines/Tubes: Nasogastric tube with its distal tip and side-port projecting under the diaphragm. Right-sided PICC line with distal tip at the cavoatrial junction. Right internal jugular central venous catheter with distal tip at the cavoatrial junction. IMPRESSION: No acute cardiopulmonary disease/process.
[2023-08-27] MEDS: LACTATED RINGERS 1,000 ML IV ONE (11:33)
--- NOTE | 2023-08-27 13:42 | P.PN ---
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 Patient was hospitalized here from 08/01/23 through 08/17/23 for ileus and possible pneumonia. He was treated conservatively. On arrival to the ER he was tachycardic with a pulse of 107. Laboratory in the ER consisted of CBC, coags, and CMP and was remarkable for sodium 135, lactic acid 2.3, and AST of 60. Abdominal x-ray was consistent with ileus. NG tube was placed. Arrangements were made for admission. He underwent CT AP which shows high density contrast into the rectum suggesting no complete obstruction, but could still be a partial obstruction along with anasarca of the soft tissues. 08/22 Patient was seen and examined. He reports 2/10 abdominal pain. Currently with NG tube to suction. Surgery recommends small bowel follow through with Gastrografin. 08/23 Patient was seen and examined. Small bowel follow through seems to suggest partial SBO. Currently with NG tube to suction. Plans for PICC line and TPN for nutrition. CBC WBC 14.7, Hg 11.2, Hct 35, Plt 496. BMP K 3.4, bicarb 31, BUN 23, glu 106, alb 2.5, T. protein 5.3. Mag 2.4. Phos 2.9. Ionized Ca 4.8. Patient was seen and examined. NG tube to suction. Reports no pain, N/V. Discussed with Kena [employer]ODUCTION SU[employer], recommending surgery. Cardiology consulted, intermediate risk, no absolute contraindication for surgery. Echo shows EF 25-30% with inf erior wall hypokinesis, moderate MR/AR, large pleural effusion. Pulmonary consulted for management of pleural effusion. CBC WBC 12.01, Hg 12.5, Hct 39.2. BMP glu 134. Phos 2.3. Mag 2.3. 08/24 Patient was seen and examined. Underwent thoracentesis yesterday for right pleural effusion with Dr. Hanson, 1.2L fluid. Currently with NG tube to suction. Discussed with dietitian, plans to increase TPN. BMP Na 136, BUN 21, glu 105. Phos 2.7. Mag 1.9. 08/25 Patient was seen and examined. Currently with NG tube to suction. Surgery recommends exploratory laparotomy on Monday. CMP Na 135, bicarb 31, BUN 24, alk phos 131, T. protein 5.2, alb 2.3. CXR done yesterday confirms decreased right sided pleural effusion. 08/26 Patient gone to OR. CMP Na 133, BUN 31, glu 113, AST 140, ALT 89, alk phos 223, alb 2.3. Based on my assessment of this patient, this patient meets a moderate complexity level of care. Patient has an acute diagnosis of recurrent illeus that poses a threat to life or bodily function. Ileus vs SBO: NGT in place to suction. Small bowel follow through with Gastrografin suggesting partial SBO. Morphine 4 mg IV Q4H PRN pain. Zofran 4 mg IV Q8H PRN for N/V. Cleared by Cardiology for OR. Surgery on board, plans for exploratory laparotomy today. Pleural effusion: Pulmonary consult. s/p right sided thoracentesis on . Protein calorie malnutrition: Plans for PICC line and TPN for nutrition. Lactic acidosis, resolved Hypoglycemia due to poor oral intake: D5 half-normal saline DC'd since patient is on TPN. Acute on chronic systolic CHF, EF 30 to 35%: Lopressor 12.5 mg twice daily, l isinopril 5 mg daily, Aldactone 50 mg daily. Cardiology on board. Thrombocytosis, reactive Chronic: Atrial fibrillation, CAD with history of myocardial infarction status post CABG, Hypothyroidism, Dyslipidemia CODE STATUS: FULL CODE DVT Prophylaxis: Lovenox GI Prophylaxis: Designated medical POA if patient is not able to make medical decisions for themselves: I have reviewed the following oracle ebs consultant notes: Surgery I have reviewed the results of the following tests: CMP. I have ordered the following tests: Daily CMP, Mag, Phos while receiving TPN. I have discussed the care of this patient with the following independent historian: I have independently interpreted the following test below: I have discussed the management of this patient with the following physician: Objective - Vital Signs Vital signs: Vital Signs Temp 97.8 F 08/27/23 07:33 Pulse 62 08/27/23 09:45 Resp 20 08/27/23 09:45 BP 115/56 08/27/23 09:45 Pulse Ox 98 03/03/24 09:45 FiO2 Intake & Output 08/26/23 08/27/23 08/27/23 18:59 06:59 18:59 Intake Total 858 200 Output Total 1200 1900 Balance -1200 -1042 200 Weight 69.5 kg 69.5 kg Intake: IV 200 Intake, IV Titration 858 Amount Mvi, Adult No.4 with Vit 858 K 10 ml Trace (Conc-1Ml/ Dose) 1 ml Sodium Phosphate 15 mmol Sodium Acetate 10 meq Potassium Chloride 40 meq Calcium Gluconate 1 gm In Amino Acids 5 %/Dextrose 20 % 1 ,000 ml @ 90 mls/hr IV . BY DURATION [facility] Rx#: [id number] Output: Gastric Drainage 350 Urine 850 1900 Other: Voiding Method Indwelling Catheter Indwelling Catheter Indwelling Catheter # Bowel Movements 1 - Labs CBC & Chem 7: 08/24/23 06:41 08/27/23 05:42 Labs: Abnormal Lab Results - Last 24 Hours (Table) 08/27/23 08/27/23 Range/Units 05:03 05:42 Sodium 133 L (137-145) mmol/L BUN 31 H (9-20) mg/dL Glucose 113 H (74-99) mg/dL POC Glucose (mg/dL) 112 H (70-110) mg/dL AST 140 H (17-59) U/L ALT 89 H (4-49) U/L Alkaline Phosphatase 223 H (38-126) U/L Total Protein 5.2 L (6.3-8.2) g/dL Albumin 2.3 L (3.5-5.0) g/dL
[2023-08-27 13:52] LABS: Glucose,Whole Blood 110 mg/dL (70-110)
--- NOTE | 2023-08-27 14:08 | P.OP ---
Date of Procedure: 08/27/23 Description of Procedure: Surgeon: Omayra Andino MD Preoperative Diagnosis: 1. Small bowel obstruction 2. Paroxysmal atrial fibrillation 3. History of Hodgkin's lymphoma status post splenectomy including chemoradiation 4. History of prostate cancer status postradiation 5. Bilateral pleural effusion 6. Unintentional weight loss 7. Ischemic cardiomyopathy 8. Moderate to severe protein malnutrition 9. Inadequate protein intake 10. History of ischemic colitis Postoperative Diagnosis: 1. Small bowel obstruction due to adhesions 2. Paroxysmal atrial fibrillation 3. History of Hodgkin's lymphoma status post splenectomy including chemoradiation 4. History of prostate cancer status postradiation 5. Bilateral pleural effusion 6. Unintentional weight loss 7. Ischemic cardiomyopathy 8. Moderate to severe protein malnutrition 9. 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 History of ischemic colitis 12. Fecal peritonitis Procedure(s) Performed: 1. Exploratory laparotomy with extensive lysis of adhesions over 1.5 hours 2. Decompressive colotomy with closure, transverse colon 3. Peritoneal lavage, 3 L normal saline 4. Application of incisional wound VAC system PREVENA, 25 cm Anesthesia: GETA Estimated Blood Loss (ml): 50 Pathology: other (peritoneal fluid) Condition: Guarded Disposition: Intensive care unit Operative Findings: 1. Diffuse radiation enteritis with ischemic changes throughout small bowel and colon 2. Mid transverse colon tethered to abdominal wall incorporated by previous sternotomy with decompressive colotomy performed 3. Removal of 410 cc liquid stool from the colon 4. Fecal peritonitis from decompressive colotomy evacuated and cultures obtained 5. Extensive fibrosis of greater omentum with adhesions at the left upper and lower quadrant lysed 6. Extensive foreshortening of intestinal mesentery from chemoradiation from previous Hodgkin's lymphoma treatment 7. Three 3 tethering points causing mechanical bowel obstruction including mid ileum adherent to the retroperitoneum/spine, left lower quadrant distal jejunum, proximal jejunum and epigastrium/retroperitoneum all lysed 8. Dense peritoneal found along the entire small bowel creating adhesions and interloop adhesions all lysed 9. Decompressive colotomy closed using powered stapler 60 mm green and viable 10. Intraoperative images taken and reviewed with patient's family, brother Pieter with all questions addressed 11. At the end of the case, patient stooled confirming release of bowel obstruction
[2023-08-27 14:18] LABS: ABG Base Excess 3.9 mmol/L; ABG HCO3 29 mmol/L (21-25); ABG PCO2 47 mmHg (35-45); ABG PO2 >400 mmHg (83-108); ABG TCO2 30 mmol/L (19-24)
[2023-08-27 14:23] LABS: ABG Oxygen Saturation 98.9 % (94-97)
[2023-08-27] MEDS: NOREPINEPHRINE 4 MG in SODIUM CHLORIDE 0.9% 250 ML IV SCH (15:04)
[2023-08-27] MEDS: SODIUM CHLORIDE 0.9% 1,000 ML IV SCH (15:04)
[2023-08-27] MEDS: SODIUM CHLORIDE 0.9% 1,000 ML IV ONE ×2 (15:19→17:13)
[2023-08-27] MEDS: metroNIDAZOLE-NS PMX 500 MG in SALINE 1 100ML.BAG IVPB STA (15:23)
[2023-08-27 15:32] LABS: African American GFR (CKD) >90 (>60 ml/min/1.73 sqM); Anion Gap 5 mmol/L; Blood Urea Nitrogen 31 mg/dL (9-20); Calcium 9.2 mg/dL (8.4-10.2); Carbon Dioxide 27 mmol/L (22-30); Chloride 102 mmol/L (98-107); Glucose 130 mg/dL (74-99); Magnesium 1.3 mg/dL (1.6-2.3); Non-African American GFR(CKD) >90 (>60 ml/min/1.73 sqM); Potassium 3.4 mmol/L (3.5-5.1); Sodium 134 mmol/L (137-145)
[2023-08-27] MEDS ORDERED: Potassium Replacement Protocol 1 EACH MISC MISCELLANE PRN (15:34)
[2023-08-27] MEDS ORDERED: Magnesium Replacement Protocol 1 EACH MISC MISCELLANE PRN (15:36)
--- NOTE | 2023-08-27 15:43 | P.PN ---
Subjective Progress Note Date: 08/27/23 I was asked to evaluate this patient regarding bilateral pleural effusions. The patient was admitted on 08/20/2023 for complaints of nausea and emesis. The patient is known to me from a previous hospitalization between 08/01/2023 and 08/17/2023. At that time, the patient was quite ill and he was seen and evaluated in the intensive care unit for shock/hypotension which was thought to be septic in nature. At time, the patient also had ileus/small bowel obstruction and ischemic colitis and the patient was treated conservatively and following his discharge he was tolerating full liquid diet but not regular.. Septic shock was highly suspected and the patient is immunocompromised due to his previous splenectomy. The patient was treated and the patient was discharged to be readmitted after a short period of time. He is known to have severe cardiomyopathy with an ejection fraction of 30 to 35%. He has coronary artery disease with previous [facility] and previous coronary bypass surgery. He also has bilateral pleural effusion and we have performed a right-sided thoracentesis on this patient on 08/10/2023 and based on that pleural fluid analysis, the patient had a transudate with low LDH and protein in the pleural fluid cytology collected was negative for malignancy. Note that, at that time, the patient had a total of 1.2 L of pleural fluid aspirated from the right lung without any complications. He is also known to have history of Hodgkin's lymphoma with a previous splenectomy followed by chemoradiation therapy this was performed in 1976 in 1977. He is known to have prostate cancer, hypothyroidism, hyperlipidemia. During this current admission, the patient was seen and evaluated by general surgery. Regarding his progressive abdominal distention and nausea and emesis. The patient during this current admission underwent a small bowel follow-through and the patient was found to have findings suspicious for partial versus complete obstruction. Based on that, the patient is current ly being considered for surgical exploration. He was supposed to go for surgery today and there was concern about his respiratory status as the patient had developed also bilateral pleural effusions. Based on that, pulmonary consultation was requested. He currently has an NG tube for decompression. He also has TPN for nutritional support. He is not receiving any form of antibiotics. He remains on oral Diflucan only. His white cell count is at 12 with a hemoglobin 12.5 and a platelet count of 369. BUN is at 20 with a creatinine 0.7. Sodium is at 139. Most recent echocardiogram that was done today showed impairment of LV function with an ejection fraction of 25 to 30%. There was also inferior wall hypokinesis and moderate MR and moderate aortic regurgitation and moderate to severe tricuspid regurgitation. The chest x-ray from today showing bilateral pleural effusion slightly worse on the left. The patient has an NG tube in place. On today's evaluation of 2023, the patient is being seen for a follow-up he is calm and comfortable on room air oxygen. I performed a left-sided thoracentesis on this patient yesterday with a total of 1.2 L of fluid drained. The right side will be done today as the patient is being prepped and optimized for surgery. He is still NPO. He has an NG tube in place. Output is still active. Abdomen is distended. It is not tender. Postprocedure chest x-ray showed no evidence of any pneumothorax. There is residual right-sided pleural effusion. BUN is at 21 with a creatinine of 0.7. Sodium level is at 136 and the patient remains on TPN for nutritional support. No other significant events overnight. 08/27/2023, the patient is being seen in follow-up. The patient was taken to the operating room and the patient underwent expiratory laparotomy and extensive lysis of adhesions was done. Decompression of the bowel was done with closure and this involves a decompression colotomy with closure and this involved the transverse colon. Peritoneal lavage was done with a total of 3 L. The incision was closed and a wound VAC was applied. Postop, the patient was kept intubated on mechanical ventilator and he was transferred to the intensive care unit. He was having some difficulties with hypotension preoperatively and he did have short runs of atrial fibrillation. His current rhythm is sinus. He is currently on propofol running at 25 mcg/kg/min. The patient is hemodynamically hypotensive and he is on norepinephrine at 0.08 mcg/kg/min. He was given a total of 1.5 L of fluid in the operating room. Another 1 L bolus will be given to him right now. He is maintenance fluid to be increased up to 150 cc an hour. He is currently on assist-control of 14, tidal volume of 400, FiO2 is 100% with a PEEP of 5 and the patient's pH was at 7.4 with a pCO2 of 47 and pO2 of more than 100. FiO2 was weaned down to 40%.. Chest x-ray showed NG tube being in good location. There is trace pleural effusion and there is a triple-lumen catheter in the right IJ which seems to be in good location for now. The blood work from this morning showed a BUN of 31 with a creatinine of 0.7 and his sodium level was at 134 and the potassium level was at 3.4. He is well sedated and synchronous with mechanical ventilator. He remains on TPN for nutritional support. No other significant issues for now. The Lopressor disaster will be placed on hold for now. Will also hold on his Lasix. Objective - Vital Signs Vital signs: Vital Signs Temp 96.8 F L 08/27/23 13:48 Pulse 115 H 08/27/23 14:30 Resp 19 08/27/23 14:30 BP 115/56 08/27/23 09:45 Pulse Ox 98 08/27/23 14:30 FiO2 40 08/27/23 15:27 Intake & Output 08/26/23 08/27/23 08/27/23 18:59 06:59 18:59 Intake Total 858 209.452 Output Total 1200 1900 170 Balance -1200 -1042 39.452 Weight 69.5 kg 69.5 kg Intake: IV 200 Intake, IV Titration 858 9.452 Amount Mvi, Adult No.4 with Vit 858 K 10 ml Trace (Conc-1Ml/ Dose) 1 ml Sodium Phosphate 15 mmol Sodium Acetate 10 meq Potassium Chloride 40 meq Calcium Gluconate 1 gm In Amino Acids 5 %/Dextrose 20 % 1 ,000 ml @ 90 mls/hr IV . BY DURATION KYLE Rx#: [id number] propofoL 1,000 mg In 9.452 Empty Bag 1 bag @ 15 MCG/ KG/MIN 6.255 mls/hr IV . Q16H KYLE Rx#:[id number] Output: Gastric Drainage 350 Urine 850 1900 120 Estimated Blood Loss 50 Other: Voiding Method Indwelling Catheter Indwelling Catheter Indwelling Catheter # Bowel Movements 1 ABP, PAP, CO, CI - Last Documented Arterial Blood Pressure 83/52 - Exam GENERAL: Well-developed in no acute distress. Patient has an NG tube in place and orotracheal tube is also in place. Intubated on mechanical ventilator, was sedated. HEENT: No sclera icterus. Extraocular movements grossly intact. Moist buccal mucosa. Head is atraumatic, normocephalic. Hears conversational speech. No nasal drainage. NECK: Supple without lymphadenopathy. CHEST: Non-labored respirations and equal bilateral excursions. CARDIOVASCULAR: Palpable 2+ radial pulses. ABDOMEN: Distended. Abdomen is soft. Surgical wound site is clean. Wound VAC has been applied. No bowel sounds. No direct tenderness or rebound tenderness or guarding. MUSCULOSKELETAL: No clubbing or cyanosis. NEUROLOGIC: No focal or lateralizing signs. Cranial nerves II through XII grossly intact. The patient is sedated. Withdraws to painful stimulation all 4 extremities. PSYCH: Unable to obtain SKIN: Well perfused. Good skin turgor. - Labs CBC & Chem 7: 08/24/23 06:41 08/27/23 14:03 Labs: Abnormal Lab Results - Last 24 Hours (Table) 08/27/23 08/27/23 08/27/23 Range/Units 05:03 05:42 14:03 ABG pCO2 (35-45) mmHg ABG pO2 (83-108) mmHg ABG HCO3 (21-25) mmol/L ABG Total CO2 (19-24) mmol/L ABG O2 Saturation (94-97) % Sodium 133 L 134 L (137-145) mmol/L Potassium 3.4 L (3.5-5.1) mmol/L BUN 31 H 31 H (9-20) mg/dL Glucose 113 H 130 H (74-99) mg/dL POC Glucose (mg/dL) 112 H (70-110) mg/dL Magnesium 1.3 L (1.6-2.3) mg/dL AST 140 H (17-59) U/L ALT 89 H (4-49) U/L Alkaline Phosphatase 223 H (38-126) U/L Total Protein 5.2 L (6.3-8.2) g/dL Albumin 2.3 L (3.5-5.0) g/dL 08/27/23 Range/Units 14:16 ABG pCO2 47 H (35-45) mmHg ABG pO2 >400 H (83-108) mmHg ABG HCO3 29 H (21-25) mmol/L ABG Total CO2 30 H (19-24) mmol/L ABG O2 Saturation 98.9 H (94-97) % Sodium (137-145) mmol/L Potassium (3.5-5.1) mmol/L BUN (9-20) mg/dL Glucose (74-99) mg/dL POC Glucose (mg/dL) (70-110) mg/dL Magnesium (1.6-2.3) mg/dL AST (17-59) U/L ALT (4-49) U/L Alkaline Phosphatase (38-126) U/L Total Protein (6.3-8.2) g/dL Albumin (3.5-5.0) g/dL Assessment and Plan Plan: Complete small bowel obstruction and the patient underwent exploratory laparotomy, lysis of adhesions and colotomy with decompression. Patient is currently postop day #0 Acute respiratory failure, hypoxic in nature and the patient's oxygenation improved post intubation mechanical ventilation. The patient was kept intubated postop and currently he remains on the mechanical ventilator with adequate oxygenation. Chest x-ray was noted. Blood gas was noted. Heart has been weaned down to 50%. Hypotension, likely hypovolemic in nature, currently on IV fluids and low-dose pressors. Note that the patient also has extensive cardiomyopathy with ejection fraction of 25%. The sedation and postanesthesia drugs may be also contributing to his lower blood pressure. Recent hospitalization for ischemic colitis/septic shock requiring prolonged hospitalization and the patient was readmitted ongoing abdominal pain and distention and suspected bowel obstruction. Bilateral pleural effusion left more than right, secondary to CHF. Previous t horacentesis was done on 2023 indicated a transudate. A total of 1.2 L of pleural fluid was aspirated from the right lung without any complications. The patient obviously has recurrent pleural effusions and the patient also underwent a left-sided thoracentesis on 08/13/2023 with a total of 1 L of fluid removed and fluid was not sent for analysis during the second thoracentesis CHF with systolic heart failure and ejection fraction of 25% the patient also has moderate mitral regurgitation, mild to moderate aortic regurgitation, moderate-severe tricuspid regurgitation with mild pulmonary hypertension. 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 Continue ventilator support. No plans for weaning or extubation today. FiO2 has been weaned down to 50% Chest x-ray was noted and the patient has small basilar pleural effusions Continue pressors for hemodynamic support, attempt a mean arterial pressure above 65 Given a liter of normal saline and increase the maintenance to 450 cc an hour Keep wound VAC in place Keep NG tube in place Hold diuretics, TAINA inhibitors and beta-blockers Continue TPN for nutritional support Condition is still critical and the patient will be kept in the intensive care unit for now. Further recommendations are to follow based on his progress. No plans for extubation for today. Case was discussed with general surgery. He has a triple-lumen catheter. His arterial line. This evaluation was done more than 30 minutes. Time with Patient: Greater than 30
[2023-08-27] MEDS: MORPHINE SULFATE 4 MG/ML SYRINGE IVP PRN (15:45)
[2023-08-27 15:56] LABS: Basophils # (A) 0.1 k/uL (0-0.2); Basophils % (A) 1 %; Eosinophils # (A) 0.1 k/uL (0-0.7); Eosinophils % (A) 1 %; HCT 39.1 % (39.0-53.0); HGB 12.4 gm/dL (13.0-17.5); Lymphocytes # (A) 1.1 k/uL (1.0-4.8); Lymphocytes % (A) 10 %; MCH 28.5 pg (25.0-35.0); MCHC 31.7 g/dL (31.0-37.0); MCV 89.9 fL (80.0-100.0); Mean Platelet Volume 8.9; Monocytes # (A) 0.3 k/uL (0-1.0); Monocytes % (A) 3 %; Neutrophils # (A) 9.4 k/uL (1.3-7.7); Neutrophils % (A) 85 %; Platelet Count 289 k/uL (150-450); RBC 4.35 m/uL (4.30-5.90); RDW 15.5 % (11.5-15.5); WBC 11.1 k/uL (3.8-10.6)
[2023-08-27] MEDS: POTASSIUM CHLORIDE 20 MEQ in WATER FOR INJECTION 1 100ML.BAG IVPB SCH (16:05)
[2023-08-27] MEDS: MAGNESIUM SULFATE-D5W PMX 1 GM in DEXTROSE/WATER 1 100ML.BAG IVPB SCH (16:07)
--- NOTE | 2023-08-27 16:23 | P.PN ---
Subjective Progress Note Date: 08/27/23 Principal diagnosis: CHF The patient is a pleasant 72-year-old gentleman with a past medical history significant for coronary artery disease and cardiomyopathy and congestive heart failure who was admitted to the hospital with small bowel obstruction. He developed heart failure. The echo showed severe cardiomyopathy with EF around 20%. August 26, 2023 The patient was seen and evaluated this morning. He has severe left upper extremity edema. I am going to start the patient on Lasix IV at the small dose 20 mg twice daily and continue monitoring the kidney function and electrolytes and also obtain a venous duplex study to rule out DVT. Meanwhile continue the current medical regimen. He cannot take any oral medication at this point. The physical examination is remarkable for severe left upper extremity edema. August 27, 2023 The patient was seen in the intensive care unit. He underwent exploratory laparotomy and lysis of adhesion earlier this morning. Currently he is intubated on mechanical ventilation. Hemodynamically he is unstable and requiring small dose of norepinephrine. He is not receiving any oral medication. He is maintaining normal sinus mechanism. From the cardiovascular standpoint of view, we will continue the current medical regimen and consider adding dobutamine giving that he does have severe cardiomyopathy with an ejection fraction of 20%. The chest x-ray and blood work were reviewed. The examination is remarkable for the patient being intubated on mechanical ventilation with diminished breathing sounds bilaterally and no edema was noted. Assessment Coronary artery disease Small bowel obstruction Status post abdominal surgery as described above Severe cardiomyopathy Bilateral pleural effusion Status post pleurocentesis Left upper extremity edema Multiple comorbid conditions Plan Continue the current medical regimen Continue supporting the blood pressure Consider adding dobutamine given the severe cardiomyopathy if the pressure remains low Continue monitor the kidney function and electrolytes and hemoglobin Continue monitor the urine output Follow-up with the patient Objective - Vital Signs Vital signs: Vital Signs Temp 95.6 F L 08/27/23 15:30 Pulse 109 H 08/27/23 15:30 Resp 25 H 08/27/23 15:30 BP 115/56 08/27/23 09:45 Pulse Ox 100 08/27/23 15:30 FiO2 40 08/27/23 15:30 Intake & Output 08/26/23 08/27/23 08/27/23 18:59 06:59 18:59 Intake Total 858 1315.452 Output Total 1200 1900 245 Balance -1200 -1042 1070.452 Weight 69.5 kg 69.5 kg Intake: IV 1306 NS 1100 NS Pressure Pack 6 Intake, IV Titration 858 9.452 Amount Mvi, Adult No.4 with Vit 858 K 10 ml Trace (Conc-1Ml/ Dose) 1 ml Sodium Phosphate 15 mmol Sodium Acetate 10 meq Potassium Chloride 40 meq Calcium Gluconate 1 gm In Amino Acids 5 %/Dextrose 20 % 1 ,000 ml @ 90 mls/hr IV . BY DURATION KYLE Rx#: [id number] propofoL 1,000 mg In 9.452 Empty Bag 1 bag @ 15 MCG/ KG/MIN 6.255 mls/hr IV . Q16H KYLE Rx#:[id number] Output: Gastric Drainage 350 Urine 850 1900 195 Estimated Blood Loss 50 Other: Voiding Method Indwelling Catheter Indwelling Catheter Indwelling Catheter # Bowel Movements 1 ABP, PAP, CO, CI - Last Documented Arterial Blood Pressure 77/45 - Labs CBC & Chem 7: 08/24/23 06:41 08/27/23 14:03 Labs: Abnormal Lab Results - Last 24 Hours (Table) 08/27/23 08/27/23 08/27/23 Range/Units 05:03 05:42 14:03 ABG pCO2 (35-45) mmHg ABG pO2 (83-108) mmHg ABG HCO3 (21-25) mmol/L ABG Total CO2 (19-24) mmol/L ABG O2 Saturation (94-97) % Sodium 133 L 134 L (137-145) mmol/L Potassium 3.4 L (3.5-5.1) mmol/L BUN 31 H 31 H (9-20) mg/dL Glucose 113 H 130 H (74-99) mg/dL POC Glucose (mg/dL) 112 H (70-110) mg/dL Magnesium 1.3 L (1.6-2.3) mg/dL AST 140 H (17-59) U/L ALT 89 H (4-49) U/L Alkaline Phosphatase 223 H (38-126) U/L Total Protein 5.2 L (6.3-8.2) g/dL Albumin 2.3 L (3.5-5.0) g/dL 08/27/23 Range/Units 14:16 ABG pCO2 47 H (35-45) mmHg ABG pO2 >400 H (83-108) mmHg ABG HCO3 29 H (21-25) mmol/L ABG Total CO2 30 H (19-24) mmol/L ABG O2 Saturation 98.9 H (94-97) % Sodium (137-145) mmol/L Potassium (3.5-5.1) mmol/L BUN (9-20) mg/dL Glucose (74-99) mg/dL POC Glucose (mg/dL) (70-110) mg/dL Magnesium (1.6-2.3) mg/dL AST (17-59) U/L ALT (4-49) U/L Alkaline Phosphatase (38-126) U/L Total Protein (6.3-8.2) g/dL Albumin (3.5-5.0) g/dL
[2023-08-27 16:34] LABS: Band Neutrophils % 9 %; Eosinophils # (M) 0.22 k/uL (0-0.7); Lymphocytes # (M) 1.11 k/uL (1.0-4.8); Monocytes # (M) 0.33 k/uL (0-1.0); Myelocytes # (M) 0.11 k/uL (0); Myelocytes % 1 %; Neutrophils % (M) 76 %; Nucleated Red Blood Cells 0 /100 WBC (0-0); Total Cells Counted 200
[2023-08-27] MEDS: 1: MVI, ADULT NO.4 WITH VIT K 10 ML, TRACE (CONC-1ML/DOSE) 1 ML, SODIUM CHLORIDE 4MEQ/ML IV SCH (18:10)
[2023-08-27] MEDS: DOBUTamine DRIP 500 MG in DEXTROSE/WATER 1 250ML.BAG IV SCH (18:23)
[2023-08-27] MEDS: ALBUMIN HUMAN 5% 250 ML in EMPTY BAG 1 BAG IVPB ONE ×3 (19:32→21:47)
[2023-08-27] MEDS: VASOPRESSIN 20 UNIT in SODIUM CHLORIDE 0.9% 50 ML IV SCH (22:34)
[2023-08-27 22:56] LABS: HCT 37.3 % (39.0-53.0); HGB 11.9 gm/dL (13.0-17.5); Hypochromasia Slight; MCH 29.2 pg (25.0-35.0); MCHC 31.9 g/dL (31.0-37.0); MCV 91.4 fL (80.0-100.0); Mean Platelet Volume 9.2; Platelet Count 270 k/uL (150-450); RBC 4.09 m/uL (4.30-5.90); RDW 15.7 % (11.5-15.5); WBC 14.3 k/uL (3.8-10.6)
[2023-08-27 23:21] LABS: ALT 33 U/L (4-49); AST 56 U/L (17-59); African American GFR (CKD) >90 (>60 ml/min/1.73 sqM); Albumin 2.6 g/dL (3.5-5.0); Alkaline Phosphatase 112 U/L (38-126); Anion Gap 9 mmol/L; Blood Urea Nitrogen 29 mg/dL (9-20); Calcium 7.8 mg/dL (8.4-10.2); Carbon Dioxide 19 mmol/L (22-30); Chloride 106 mmol/L (98-107); Glucose 222 mg/dL (74-99); Magnesium 2.3 mg/dL (1.6-2.3); Non-African American GFR(CKD) >90 (>60 ml/min/1.73 sqM); Potassium 3.7 mmol/L (3.5-5.1); Sodium 134 mmol/L (137-145); Total Bilirubin 1.4 mg/dL (0.2-1.3); Total Protein 4.5 g/dL (6.3-8.2)
[2023-08-27] MEDS: POTASSIUM CHLORIDE 10 MEQ in WATER FOR INJECTION 1 100ML.BAG IVPB SCH (23:31)
[2023-08-27 23:58] LABS: Band Neutrophils % 69 %; Eosinophils # (M) 0.14 k/uL (0-0.7); Monocytes # (M) 0.29 k/uL (0-1.0); Neutrophils % (M) 28 %; Nucleated Red Blood Cells 0 /100 WBC (0-0); Total Cells Counted 200
[2023-08-27 23:59] LABS: Anisocytosis (M) Present; Crenated RBC Present; Ovalocytes Present; Poikilocytosis (M) Present; Target Cells Present
[2023-08-28 04:19] LABS: HCT 37.6 % (39.0-53.0); HGB 11.9 gm/dL (13.0-17.5); Hypochromasia Slight; MCH 29.1 pg (25.0-35.0); MCHC 31.7 g/dL (31.0-37.0); MCV 91.8 fL (80.0-100.0); Mean Platelet Volume 9.4; Platelet Count 254 k/uL (150-450); RBC 4.09 m/uL (4.30-5.90); RDW 15.4 % (11.5-15.5); WBC 21.5 k/uL (3.8-10.6)
[2023-08-28 04:38] LABS: Band Neutrophils % 73 %; Lymphocytes # (M) 0.22 k/uL (1.0-4.8); Metamyelocytes # (M) 0.86 k/uL (0); Metamyelocytes % 4 %; Monocytes # (M) 0.43 k/uL (0-1.0); Neutrophils % (M) 20 %; Nucleated Red Blood Cells 0 /100 WBC (0-0); Total Cells Counted 200
[2023-08-28 04:39] LABS: Anisocytosis (M) Present; Ovalocytes Present; Poikilocytosis (M) Present; RBC Fragments Present; Toxic Granulation Present; Toxic Vacuolation Present
[2023-08-28 04:40] LABS: Crenated RBC Present
[2023-08-28 04:44] LABS: ALT 24 U/L (4-49); AST 49 U/L (17-59); African American GFR (CKD) >90 (>60 ml/min/1.73 sqM); Albumin 2.2 g/dL (3.5-5.0); Alkaline Phosphatase 99 U/L (38-126); Anion Gap 6 mmol/L; Blood Urea Nitrogen 31 mg/dL (9-20); Calcium 7.5 mg/dL (8.4-10.2); Carbon Dioxide 20 mmol/L (22-30); Chloride 107 mmol/L (98-107); Glucose 212 mg/dL (74-99); Magnesium 2.2 mg/dL (1.6-2.3); Non-African American GFR(CKD) >90 (>60 ml/min/1.73 sqM); Phosphorus 2.6 mg/dL (2.5-4.5); Potassium 4.1 mmol/L (3.5-5.1); Sodium 133 mmol/L (137-145); Total Bilirubin 1.3 mg/dL (0.2-1.3)
[2023-08-28 05:59] LABS: ABG Base Excess -4.6 mmol/L; ABG HCO3 22 mmol/L (21-25); ABG PCO2 42 mmHg (35-45); ABG PH 7.32 (7.35-7.45); ABG PO2 99 mmHg (83-108); ABG TCO2 23 mmol/L (19-24)
[2023-08-28 06:02] LABS: ABG Oxygen Saturation 96.2 % (94-97)
[2023-08-28] MEDS: PIPERACILLIN-TAZOBACTAM 3.375 GM in SODIUM CHLORIDE 0.9% 100 ML IVPB SCH (08:17)
[2023-08-28] MEDS: ALBUMIN HUMAN 5% 250 ML in EMPTY BAG 1 BAG IVPB STA (08:18)
[2023-08-28] MEDS ORDERED: ALBUMIN HUMAN 5% 500 ML in EMPTY BAG 1 BAG IVPB ONE (08:30)
[2023-08-28] MEDS: NOREPINEPHRINE 32 MG in SODIUM CHLORIDE 0.9% 218 ML IV SCH (09:28)
--- NOTE | 2023-08-28 09:34 | XR ---
EXAMINATION TYPE: XR chest 1V DATE OF EXAM: 08/28/2023 COMPARISON: 08/27/2023 HISTORY: 72-year-old male intubated, ICU follow-up, shortness of breath TECHNIQUE: Single frontal view of the chest is obtained. FINDINGS: ET tube tip at the level of the medial clavicular head. NG tube courses below the diaphrag m. Right CVC tip at the cavoatrial junction. Right PICC tip not well seen but at least within the SVC . Left anterior chest wall AICD generator with right ventricular lead. Median sternotomy wires and po st-CABG clips. Heart appears normal size. Ongoing focal and hazy mid and lower lung densities, left g reater than right. IMPRESSION: 1. Interval worsening aeration; correlate for developing mild interstitial pulmonary edema. 2. Small to moderate left and small right pleural effusions with adjacent atelectasis and/or consolid ation. These may be slightly increased or could appear more pronounced due to semiupright positioning .
[2023-08-28] MEDS: SODIUM CHLORIDE 0.9% 1,000 ML IV ONE (12:22)
--- NOTE | 2023-08-28 12:57 | P.PN ---
Subjective Progress Note Date: 08/28/23 Patient is a 72-year-old male with a history of Hodgkin's lymphoma status post chemo radiation and splenectomy in the 1970s, A Fib, HLD, CAD with myocardial infarction and CABG, and prostate cancer who presented to the emergency department with complaints of nausea and vomiting. Patient was hospitalized here from 08/01/23 through 08/17/23 for ileus and possible pneumonia. He was treated conservatively. On arrival to the ER he was tachycardic with a pulse of 107. Laboratory in the ER consisted of CBC, coags, and CMP and was remarkable for sodium 135, lactic acid 2.3, and AST of 60. Abdominal x-ray was consistent with ileus. NG tube was placed. Arrangements were made for admission. He underwent CT AP which shows high density contrast into the rectum suggesting no complete obstruction, but could still be a partial obstruction along with anasarca of the soft tissues. He was treated with NG tube to suction. He was started on TPN. Cardiology consulted, intermediate risk, no absolute contraindication for surgery. Echo shows EF 25-30% with inferior wall hypokinesis, moderate MR/AR, large pleural effusion. Pulmonary consulted for management of pleural effusion. Underwent thoracentesis for right pleural effusion with Dr. Hanson, 1.2L fluid. He underwent exploratory laparotomy lysis of adhesions, decompressive colotomy with Dr. Andino on 08/26 and admitted to ICU while intubated. 08/27 Patient was seen and examined. He is hypotensive SBP ranging from high 80s and 90s. Pressors include Levophed at 0.5 mcg/kg/min and Vasopressin at 0.03 units/min. 50g of albumin infused so far since yesterday. 3L of NS bolused since yesterday, maintained on NS at 110 cc/hr. He received one dose of Zosyn 3.375 g IV and Flagyl 500 mg IV, started on Meropenem 1g IV TID, ID consulted. CBC WBC 21.5 Hg 11.9 Hct 37.6. ABG pH 7.32 pCO2 42. CMP Na 133, bicarb 20, BUN 31, glu 212, Ca 7.5, alb 2.2. Lactic acid 2.1. Intraoperative cultures were collected. BCx and Sputum Cx is ordered today. CXR done today shows pulmonary edema. Vital signs reviewed General: Intubated, no distress, NG tube Cardiovascular: S1S2 tachy, no murmur Lungs: Coarse BS bilateral, no rhonchi, no rales, no accessory muscle use Abdominal: Soft, nontender to palpation, no guarding, midline surgical wound with wound vac, distended Ext: No gross muscle atrophy, no edema b/l lower extremities, 2+ edema LUE no co ntractures Neuro: Unable to determine Psych: Intubated. Opens eyes. Based on my assessment of this patient, this patient meets a high complexity level of care. Patient has an acute diagnosis of recurrent illeus that poses a threat to life or bodily function. Septic vs Cardiogenic shock: Plans to start Epinephrine drip. Currently on Levophed and Vasopressin as above. Started on Meropenem 1g IV TID. ID consulted. BCx, intraoperative Cx and Sputum Cx ordered. Cardiology and Pulmonary on board. Acute hypoxic respiratory failure: Full ventilator support. Pulmonary on board. Metabolic acidosis: Lactic acid 2.1. 1 amp of sodium bicarb ordered. SBO with history of ischemic colitis: NGT in place to suction. POD 1 exploratory laparotomy lysis of adhesions, decompressive colotomy. Morphine 4 mg IV Q4H PRN pain. Zofran 4 mg IV Q8H PRN for N/V. Surgery on board. Acute on chronic systolic CHF, EF 30 to 35%: Hold Lopressor 12.5 mg twice daily, lisinopril 5 mg daily, Aldactone 50 mg daily due to hypotension. Lasix 20 mg IV BID. Cardiology on board. Pleural effusion: Pulmonary on board. s/p right sided thoracentesis on . Protein calorie malnutrition: PICC line and TPN for nutrition. Resolved: Hypoglycemia, Thrombocytosis Chronic: Atrial fibrillation, CAD with history of myocardial infarction status post CABG, Hypothyroidism, Dyslipidemia Prognosis is guarded. We will discuss goals of care with the brother when he arrives at the hospital. CODE STATUS: FULL CODE DVT Prophylaxis: Lovenox GI Prophylaxis: Protonix IV Designated medical POA if patient is not able to make medical decisions for themselves: I have reviewed the following [facility] consultant notes: Surgery, Cardiology, Pulmonary I have reviewed the results of the following tests: CBC, CMP, lactic acid. I have ordered the following tests: Daily CMP, Mag, Phos while receiving TPN. I have discussed the care of this patient with the following independent historian: NARCISO. I have independently interpreted the following test below: CXR. Objective - Vital Signs Vital signs: Vital Signs Temp 98.2 F 08/28/23 12:00 Pulse 103 H 08/28/23 12:00 Resp 19 08/28/23 12:00 BP 95/60 08/28/23 03:45 Pulse Ox 96 08/28/23 12:00 FiO2 40 08/28/23 12:00 Intake & Output 08/27/23 08/28/23 08/28/23 18:59 06:59 18:59 Intake Total 3658.883 5197.027 3162.705 Output Total 305 585 170 Balance 3353.883 4612.027 2992.705 Weight 75.4 kg Intake: IV 2768 2819 2726 Albumin Human 5% 250 ml 750 500 In Empty Bag 1 bag @ 250 mls/hr IVPB ONCE ONE Rx#: [id number] Mvi, Adult No.4 with Vit 540 K 10 ml Trace (Conc-1Ml/ Dose) 1 ml Sodium Chloride 4Meq/ml Vial 20 meq In Amino Acid 5%-D20w +Lytes*E* 1,000 ml @ 90 mls/hr IV .BY DURATION [facility] Rx#:[id number] NS 2550 1800 650 NS Pressure Pack 18 69 1036 Potassium Chloride 10 meq 200 In Water For Injection 1 100ml.bag @ 100 mls/hr IVPB Q1H [facility] Rx#: [id number] Intake, IV Titration 254.510 9540.027 436.705 Amount Albumin Human 5% 250 ml 250 In Empty Bag 1 bag @ 250 mls/hr IVPB ONCE ONE Rx#: [id number] DOBUTamine DRIP 500 mg In 6.950 Dextrose/Water 1 250ml. bag @ 2 MCG/KG/MIN 4.17 mls/hr IV .Q24H KYLE Rx#: [id number] Magnesium Sulfate-D5w Pmx 200 50 1 gm In Dextrose/Water 1 100ml.bag @ 100 mls/hr IVPB Q1H [facility] Rx#: [id number] Mvi, Adult No.4 with Vit 270 K 10 ml Trace (Conc-1Ml/ Dose) 1 ml Sodium Acetate 30 meq Potassium Chloride 40 meq Calcium Gluconate 1 gm In Amino Acids 5 %/Dextrose 20 % 1 ,000 ml @ 30 mls/hr IV . Q24H ONE Rx#:[id number] Mvi, Adult No.4 with Vit 954 K 10 ml Trace (Conc-1Ml/ Dose) 1 ml Sodium Chloride 4Meq/ml Vial 20 meq In Amino Acid 5%-D20w +Lytes*E* 1,000 ml @ 90 mls/hr IV .BY DURATION [facility] Rx#:[id number] Norepinephrine 4 mg In 116.333 590.687 254 Sodium Chloride 0.9% 250 ml @ 0.03 MCG/KG/MIN 7. 944 mls/hr IV .Q24H [facility] Rx#:[id number] Piperacillin-Tazobactam 3 100 .375 gm In Sodium Chloride 0.9% 100 ml @ 25 mls/hr IVPB Q8HR [facility] Rx# :[id number] Potassium Chloride 20 meq 200 In Water For Injection 1 100ml.bag @ 50 mls/hr IVPB Q2H [facility] Rx#: [id number] Sodium Phosphate 15 mmol 180 90 Sodium Acetate 10 meq Potassium Chloride 40 meq Calcium Gluconate 1 gm In Amino Acids 5 %/ Dextrose 20 % 1,000 ml @ 90 mls/hr IV .BY DURATION [facility] Rx#:[id number] Vasopressin 20 unit In 31.977 Sodium Chloride 0.9% 50 ml @ 0.04 UNITS/MIN 6.12 mls/hr IV .Q8H20M [facility] Rx# :[id number] ceFAZolin 2 gm In Sodium 50 Chloride 0.9% 50 ml @ 100 mls/hr IVPB ONCE ONE Rx# :[id number] metroNIDAZOLE-NS PMX 500 100 mg In Saline 1 100ml.bag @ 100 mls/hr IVPB ONCE STA Rx#:[id number] propofoL 1,000 mg In 37.600 141.363 82.705 Empty Bag 1 bag @ 15 MCG/ KG/MIN 6.255 mls/hr IV . Q16H [facility] Rx#:[id number] Output: Gastric Drainage 200 Urine 255 385 170 Estimated Blood Loss 50 Other: Voiding Method Indwelling Catheter Indwelling Catheter Indwelling Catheter ABP, PAP, CO, CI - Last Documented Arterial Blood Pressure 91/45 - Labs CBC & Chem 7: 08/28/23 04:05 08/28/23 04:05 Labs: Abnormal Lab Results - Last 24 Hours (Table) 08/27/23 08/27/23 08/27/23 Range/Units 14:03 14:03 14:16 WBC 11.1 H (3.8-10.6) k/uL RBC (4.30-5.90) m/uL Hgb 12.4 L (13.0-17.5) gm/dL Hct (39.0-53.0) % RDW (11.5-15.5) % Neutrophils # 9.4 H (1.3-7.7) k/uL Neutrophils # (Manual) 9.40 H (1.3-7.7) k/uL Lymphocytes # (Manual) (1.0-4.8) k/uL Metamyelocytes # (Man) (0) k/uL Myelocytes # (Manual) 0.11 H (0) k/uL ABG pH (7.35-7.45) ABG pCO2 47 H (35-45) mmHg ABG pO2 >400 H (83-108) mmHg ABG HCO3 29 H (21-25) mmol/L ABG Total CO2 30 H (19-24) mmol/L ABG O2 Saturation 98.9 H (94-97) % Sodium 134 L (137-145) mmol/L Potassium 3.4 L (3.5-5.1) mmol/L Carbon Dioxide (22-30) mmol/L BUN 31 H (9-20) mg/dL Glucose 130 H (74-99) mg/dL Plasma Lactic Acid Vicente (0.7-2.0) mmol/L Calcium (8.4-10.2) mg/dL Magnesium 1.3 L (1.6-2.3) mg/dL Total Bilirubin (0.2-1.3) mg/dL Total Protein (6.3-8.2) g/dL Albumin (3.5-5.0) g/dL 08/27/23 08/27/23 08/27/23 Range/Units 22:30 22:30 22:30 WBC 14.3 H (3.8-10.6) k/uL RBC 4.09 L (4.30-5.90) m/uL Hgb 11.9 L (13.0-17.5) gm/dL Hct 37.3 L (39.0-53.0) % RDW 15.7 H (11.5-15.5) % Neutrophils # (1.3-7.7) k/uL Neutrophils # (Manual) 13.80 H (1.3-7.7) k/uL Lymphocytes # (Manual) (1.0-4.8) k/uL Metamyelocytes # (Man) (0) k/uL Myelocytes # (Manual) (0) k/uL ABG pH (7.35-7.45) ABG pCO2 (35-45) mmHg ABG pO2 (83-108) mmHg ABG HCO3 (21-25) mmol/L ABG Total CO2 (19-24) mmol/L ABG O2 Saturation (94-97) % Sodium 134 L (137-145) mmol/L Potassium (3.5-5.1) mmol/L Carbon Dioxide 19 L (22-30) mmol/L BUN 29 H (9-20) mg/dL Glucose 222 H (74-99) mg/dL Plasma Lactic Acid Vicente 2.4 H* (0.7-2.0) mmol/L Calcium 7.8 L (8.4-10.2) mg/dL Magnesium (1.6-2.3) mg/dL Total Bilirubin 1.4 H (0.2-1.3) mg/dL Total Protein 4.5 L (6.3-8.2) g/dL Albumin 2.6 L (3.5-5.0) g/dL 08/28/23 08/28/23 08/28/23 Range/Units 02:15 04:05 04:05 WBC 21.5 H (3.8-10.6) k/uL RBC 4.09 L (4.30-5.90) m/uL Hgb 11.9 L (13.0-17.5) gm/dL Hct 37.6 L (39.0-53.0) % RDW (11.5-15.5) % Neutrophils # (1.3-7.7) k/uL Neutrophils # (Manual) 19.90 H (1.3-7.7) k/uL Lymphocytes # (Manual) 0.22 L (1.0-4.8) k/uL Metamyelocytes # (Man) 0.86 H (0) k/uL Myelocytes # (Manual) (0) k/uL ABG pH (7.35-7.45) ABG pCO2 (35-45) mmHg ABG pO2 (83-108) mmHg ABG HCO3 (21-25) mmol/L ABG Total CO2 (19-24) mmol/L ABG O2 Saturation (94-97) % Sodium 133 L (137-145) mmol/L Potassium (3.5-5.1) mmol/L Carbon Dioxide 20 L (22-30) mmol/L BUN 31 H (9-20) mg/dL Glucose 212 H (74-99) mg/dL Plasma Lactic Acid Vicente 2.1 H* (0.7-2.0) mmol/L Calcium 7.5 L (8.4-10.2) mg/dL Magnesium (1.6-2.3) mg/dL Total Bilirubin (0.2-1.3) mg/dL Total Protein 4.0 L (6.3-8.2) g/dL Albumin 2.2 L (3.5-5.0) g/dL 08/28/23 Range/Units 05:51 WBC (3.8-10.6) k/uL RBC (4.30-5.90) m/uL Hgb (13.0-17.5) gm/dL Hct (39.0-53.0) % RDW (11.5-15.5) % Neutrophils # (1.3-7.7) k/uL Neutrophils # (Manual) (1.3-7.7) k/uL Lymphocytes # (Manual) (1.0-4.8) k/uL Metamyelocytes # (Man) (0) k/uL Myelocytes # (Manual) (0) k/uL ABG pH 7.32 L (7.35-7.45) ABG pCO2 (35-45) mmHg ABG pO2 (83-108) mmHg ABG HCO3 (21-25) mmol/L ABG Total CO2 (19-24) mmol/L ABG O2 Saturation (94-97) % Sodium (137-145) mmol/L Potassium (3.5-5.1) mmol/L Carbon Dioxide (22-30) mmol/L BUN (9-20) mg/dL Glucose (74-99) mg/dL Plasma Lactic Acid Vicente (0.7-2.0) mmol/L Calcium (8.4-10.2) mg/dL Magnesium (1.6-2.3) mg/dL Total Bilirubin (0.2-1.3) mg/dL Total Protein (6.3-8.2) g/dL Albumin (3.5-5.0) g/dL Microbiology - Last 24 Hours (Table) 08/27/23 14:15 Gram Stain - Preliminary Sputum
[2023-08-28] MEDS: SODIUM BICARB 8.4% 50 ML SYR (1 MEQ/ML) IV STA (13:16)
--- NOTE | 2023-08-28 13:42 | P.PN ---
Subjective Progress Note Date: 08/28/23 Principal diagnosis: Acute small bowel obstruction I was asked to evaluate this patient regarding bilateral pleural effusions. The patient was admitted on 08/20/2023 for complaints of nausea and emesis. The patient is known to me from a previous hospitalization between 08/01/2023 and 08/17/2023. At that time, the patient was quite ill and he was seen and evaluated in the intensive care unit for shock/hypotension which was thought to be septic in nature. At time, the patient also had ileus/small bowel obstruction and ischemic colitis and the patient was treated conservatively and following his discharge he was tolerating full liquid diet but not regular.. Septic shock was highly suspected and the patient is immunocompromised due to his previous splenectomy. The patient was treated and the patient was discharged to be readmitted after a short period of time. He is known to have severe cardiomyopathy with an ejection fraction of 30 to 35%. He has coronary artery disease with previous VT and previous coronary bypass surgery. He also has bilateral pleural effusion and we have performed a right-sided thoracentesis on this patient on 08/10/2023 and based on that pleural fluid analysis, the patient had a transudate with low LDH and protein in the pleural fluid cytology collected was negative for malignancy. Note that, at that time, the patient had a total of 1.2 L of pleural fluid aspirated from the right lung without any complications. He is also known to have history of Hodgkin's lymphoma with a previous splenectomy followed by chemoradiation therapy this was performed in 1976 in 1977. He is known to have prostate cancer, hypothyroidism, hyperlipide alvino. During this current admission, the patient was seen and evaluated by general surgery. Regarding his progressive abdominal distention and nausea and emesis. The patient during this current admission underwent a small bowel follow-through and the patient was found to have findings suspicious for partial versus complete obstruction. Based on that, the patient is currently being considered for surgical exploration. He was supposed to go for surgery today and there was concern about his respiratory status as the patient had developed also bilateral pleural effusions. Based on that, pulmonary consultation was requested. He currently has an NG tube for decompression. He also has TPN for nutritional support. He is not receiving any form of antibiotics. He remains on oral Diflucan only. His white cell count is at 12 with a hemoglobin 12.5 and a platelet count of 369. BUN is at 20 with a creatinine 0.7. Sodium is at 139. Most recent echocardiogram that was done today showed impairment of LV function with an ejection fraction of 25 to 30%. There was also inferior wall hypoki nesis and moderate MR and moderate aortic regurgitation and moderate to severe tricuspid regurgitation. The chest x-ray from today showing bilateral pleural effusion slightly worse on the left. The patient has an NG tube in place. On today's evaluation of 2023, the patient is being seen for a follow-up he is calm and comfortable on room air oxygen. I performed a left-sided thoracentesis on this patient yesterday with a total of 1.2 L of fluid drained. The right side will be done today as the patient is being prepped and optimized for surgery. He is still NPO. He has an NG tube in place. Output is still active. Abdomen is distended. It is not tender. Postprocedure chest x-ray s howed no evidence of any pneumothorax. There is residual right-sided pleural effusion. BUN is at 21 with a creatinine of 0.7. Sodium level is at 136 and the patient remains on TPN for nutritional support. No other significant events overnight. 08/27/2023, the patient is being seen in follow-up. The patient was taken to the operating room and the patient underwent expiratory laparotomy and extensive lysis of adhesions was done. Decompression of the bowel was done with closure and this involves a decompression colotomy with closure and this involved the transverse colon. Peritoneal lavage was done with a total of 3 L. The incision was closed and a wound VAC was applied. Postop, the patient was kept intubated on mechanical ventilator and he was transferred to the intensive care unit. He was having some difficulties with hypotension preoperatively and he did have short runs of atrial fibrillation. His current rhythm is sinus. He is currently on propofol running at 25 mcg/kg/min. The patient is hemodynamically hypotensive and he is on norepinephrine at 0.08 mcg/kg/min. He was given a total of 1.5 L of fluid in the operating room. Another 1 L bolus will be given to him right now. He is maintenance fluid to be increased up to 150 cc an hour. He is currently on assist-control of 14, tidal volume of 400, FiO2 is 100% with a PEEP of 5 and the patient's pH was at 7.4 with a pCO2 of 47 and pO2 of more than 100. FiO2 was weaned down to 40%.. Chest x-ray showed NG tube being in good location. There is trace pleural effusion and there is a triple-lumen catheter in the right IJ which seems to be in good location for now. The blood work from this morning showed a BUN of 31 with a creatinine of 0.7 and his sodium level was at 134 and the potassium level was at 3.4. He is well sedated and synchronous with mechanical ventilator. He remains on TPN for nutritional support. No other significant issues for now. The Lopressor disaster will be placed on hold for now. Will also hold on his Lasix. Patient was reevaluated today on 08/28/2023, patient remains in the ICU, intubated and mechanically ventilated. Patient is status post expiratory laparotomy and extensive lysis of adhesions was done. Postoperative day #1. Remains intubated and mechanically ventilated. Patient is on assist-control rate of 16 tidal volume 400 FiO2 40% and PEEP of 5. ABG showed a pO2 of 99 pCO2 42 pH of 7.32. Blood pressure is marginal in spite of maximal therapy with norepinephrine at 0.5 mcg/kg/min, he is also on vasopressin at 0.03 units/min, patient is receiving propofol at 35 mg/kg/min, IV fluid is running at 150 cc/h. Patient is also receiving TPN, and he has received albumin. Intermittently the patient was receiving Lasix which I placed on hold because of his marginal blood pressure. Antibiotics graf patient remains on Zosyn and Diflucan. Apparently the patient was found to have fecal peritonitis when he underwent exploratory laparotomy. WBC count today is 21.5 hemoglobin 11.9. ABG showed a pO2 of 99 pCO2 42 pH of 7.32 basic metabolic profile is normal renal profile is normal chest x-ray is showing evidence of small bilateral pleural effusions and I suspect mild interstitial edema echocardiogram on this admission showed LV dysfunction, patient may improve with dobutamine, and I will try to go on a trial of dobutamine at 2.5 mcg/kg/min Objective - Vital Signs Vital signs: Vital Signs Temp 98.2 F 08/28/23 12:00 Pulse 103 H 08/28/23 12:00 Resp 19 08/28/23 12:00 BP 95/60 08/28/23 03:45 Pulse Ox 96 08/28/23 12:00 FiO2 40 08/28/23 12:00 Intake & Output 08/27/23 08/28/23 08/28/23 18:59 06:59 18:59 Intake Total 3658.883 5197.027 3162.705 Output Total 305 585 170 Balance 3353.883 4612.027 2992.705 Weight 75.4 kg 75.4 kg Intake: IV 2768 2819 2726 Albumin Human 5% 250 ml 750 500 In Empty Bag 1 bag @ 250 mls/hr IVPB ONCE ONE Rx#: [id number] Mvi, Adult No.4 with Vit 540 K 10 ml Trace (Conc-1Ml/ Dose) 1 ml Sodium Chloride 4Meq/ml Vial 20 meq In Amino Acid 5%-D20w +Lytes*E* 1,000 ml @ 90 mls/hr IV .BY DURATION [facility] Rx#:[id number] NS 2550 1800 650 NS Pressure Pack 18 69 1036 Potassium Chloride 10 meq 200 In Water For Injection 1 100ml.bag @ 100 mls/hr IVPB Q1H [facility] Rx#: [id number] Intake, IV Titration 026.360 3862.027 436.705 Amount Albumin Human 5% 250 ml 250 In Empty Bag 1 bag @ 250 mls/hr IVPB ONCE ONE Rx#: [id number] DOBUTamine DRIP 500 mg In 6.950 Dextrose/Water 1 250ml. bag @ 2 MCG/KG/MIN 4.17 mls/hr IV .Q24H [facility] Rx#: [id number] Magnesium Sulfate-D5w Pmx 200 50 1 gm In Dextrose/Water 1 100ml.bag @ 100 mls/hr IVPB Q1H [facility] Rx#: [id number] Mvi, Adult No.4 with Vit 270 K 10 ml Trace (Conc-1Ml/ Dose) 1 ml Sodium Acetate 30 meq Potassium Chloride 40 meq Calcium Gluconate 1 gm In Amino Acids 5 %/Dextrose 20 % 1 ,000 ml @ 30 mls/hr IV . Q24H ONE Rx#:[id number] Mvi, Adult No.4 with Vit 954 K 10 ml Trace (Conc-1Ml/ Dose) 1 ml Sodium Chloride 4Meq/ml Vial 20 meq In Amino Acid 5%-D20w +Lytes*E* 1,000 ml @ 90 mls/hr IV .BY DURATION [facility] Rx#:[id number] Norepinephrine 4 mg In 116.333 590.687 254 Sodium Chloride 0.9% 250 ml @ 0.03 MCG/KG/MIN 7. 944 mls/hr IV .Q24H [facility] Rx#:[id number] Piperacillin-Tazobactam 3 100 .375 gm In Sodium Chloride 0.9% 100 ml @ 25 mls/hr IVPB Q8HR [facility] Rx# :[id number] Potassium Chloride 20 meq 200 In Water For Injection 1 100ml.bag @ 50 mls/hr IVPB Q2H [facility] Rx#: [id number] Sodium Phosphate 15 mmol 180 90 Sodium Acetate 10 meq Potassium Chloride 40 meq Calcium Gluconate 1 gm In Amino Acids 5 %/ Dextrose 20 % 1,000 ml @ 90 mls/hr IV .BY DURATION [facility] Rx#:[id number] Vasopressin 20 unit In 31.977 Sodium Chloride 0.9% 50 ml @ 0.04 UNITS/MIN 6.12 mls/hr IV .Q8H20M [facility] Rx# :[id number] ceFAZolin 2 gm In Sodium 50 Chloride 0.9% 50 ml @ 100 mls/hr IVPB ONCE ONE Rx# :[id number] metroNIDAZOLE-NS PMX 500 100 mg In Saline 1 100ml.bag @ 100 mls/hr IVPB ONCE STA Rx#:[id number] propofoL 1,000 mg In 37.600 141.363 82.705 Empty Bag 1 bag @ 15 MCG/ KG/MIN 6.255 mls/hr IV . Q16H [facility] Rx#:[id number] Output: Gastric Drainage 200 Urine 255 385 170 Estimated Blood Loss 50 Other: Voiding Method Indwelling Catheter Indwelling Catheter Indwelling Catheter ABP, PAP, CO, CI - Last Documented Arterial Blood Pressure 91/45 - Exam GENERAL: Revealed 72-year-old white male looks frail, cachectic, chronically ill, intubated and mechanically ventilated Head: Atraumatic, normocephalic, endotracheal tube and orogastric tubes are intact HEENT: No sclera icterus. Extraocular movements grossly intact. Moist buccal mucosa. Head is atraumatic, normocephalic. Hears conversational speech. No nasal drainage. NECK: Supple without lymphadenopathy. CHEST: Diminished breath sounds and crackles at the bases no rhonchi no wheezes CARDIOVASCULAR: Normal S1-S2, no S3 gallop, 2/6 systolic murmur throughout the precordium ABDOMEN: Distended. Abdomen is soft. Surgical wound site is clean. Wound VAC has been applied. No bowel sounds. No direct tenderness or rebound tenderness or guarding. MUSCULOSKELETAL: No clubbing, trace of bipedal edema, no cyanosis. NEUROLOGIC: Could not assess patient is sedated and mechanically ventilated. PSYCH: Unable to obtain SKIN: No rashes - Labs CBC & Chem 7: 08/28/23 04:05 08/28/23 04:05 Labs: Abnormal Lab Results - Last 24 Hours (Table) 08/27/23 08/27/23 08/27/23 Range/Units 14:03 14:03 14:16 WBC 11.1 H (3.8-10.6) k/uL RBC (4.30-5.90) m/uL Hgb 12.4 L (13.0-17.5) gm/dL Hct (39.0-53.0) % RDW (11.5-15.5) % Neutrophils # 9.4 H (1.3-7.7) k/uL Neutrophils # (Manual) 9.40 H (1.3-7.7) k/uL Lymphocytes # (Manual) (1.0-4.8) k/uL Metamyelocytes # (Man) (0) k/uL Myelocytes # (Manual) 0.11 H (0) k/uL ABG pH (7.35-7.45) ABG pCO2 47 H (35-45) mmHg ABG pO2 >400 H (83-108) mmHg ABG HCO3 29 H (21-25) mmol/L ABG Total CO2 30 H (19-24) mmol/L ABG O2 Saturation 98.9 H (94-97) % Sodium 134 L (137-145) mmol/L Potassium 3.4 L (3.5-5.1) mmol/L Carbon Dioxide (22-30) mmol/L BUN 31 H (9-20) mg/dL Glucose 130 H (74-99) mg/dL Plasma Lactic Acid Vicente (0.7-2.0) mmol/L Calcium (8.4-10.2) mg/dL Magnesium 1.3 L (1.6-2.3) mg/dL Total Bilirubin (0.2-1.3) mg/dL Total Protein (6.3-8.2) g/dL Albumin (3.5-5.0) g/dL 08/27/23 08/27/23 08/27/23 Range/Units 22:30 22:30 22:30 WBC 14.3 H (3.8-10.6) k/uL RBC 4.09 L (4.30-5.90) m/uL Hgb 11.9 L (13.0-17.5) gm/dL Hct 37.3 L (39.0-53.0) % RDW 15.7 H (11.5-15.5) % Neutrophils # (1.3-7.7) k/uL Neutrophils # (Manual) 13.80 H (1.3-7.7) k/uL Lymphocytes # (Manual) (1.0-4.8) k/uL Metamyelocytes # (Man) (0) k/uL Myelocytes # (Manual) (0) k/uL ABG pH (7.35-7.45) ABG pCO2 (35-45) mmHg ABG pO2 (83-108) mmHg ABG HCO3 (21-25) mmol/L ABG Total CO2 (19-24) mmol/L ABG O2 Saturation (94-97) % Sodium 134 L (137-145) mmol/L Potassium (3.5-5.1) mmol/L Carbon Dioxide 19 L (22-30) mmol/L BUN 29 H (9-20) mg/dL Glucose 222 H (74-99) mg/dL Plasma Lactic Acid Vicente 2.4 H* (0.7-2.0) mmol/L Calcium 7.8 L (8.4-10.2) mg/dL Magnesium (1.6-2.3) mg/dL Total Bilirubin 1.4 H (0.2-1.3) mg/dL Total Protein 4.5 L (6.3-8.2) g/dL Albumin 2.6 L (3.5-5.0) g/dL 08/28/23 08/28/23 08/28/23 Range/Units 02:15 04:05 04:05 WBC 21.5 H (3.8-10.6) k/uL RBC 4.09 L (4.30-5.90) m/uL Hgb 11.9 L (13.0-17.5) gm/dL Hct 37.6 L (39.0-53.0) % RDW (11.5-15.5) % Neutrophils # (1.3-7.7) k/uL Neutrophils # (Manual) 19.90 H (1.3-7.7) k/uL Lymphocytes # (Manual) 0.22 L (1.0-4.8) k/uL Metamyelocytes # (Man) 0.86 H (0) k/uL Myelocytes # (Manual) (0) k/uL ABG pH (7.35-7.45) ABG pCO2 (35-45) mmHg ABG pO2 (83-108) mmHg ABG HCO3 (21-25) mmol/L ABG Total CO2 (19-24) mmol/L ABG O2 Saturation (94-97) % Sodium 133 L (137-145) mmol/L Potassium (3.5-5.1) mmol/L Carbon Dioxide 20 L (22-30) mmol/L BUN 31 H (9-20) mg/dL Glucose 212 H (74-99) mg/dL Plasma Lactic Acid Vicente 2.1 H* (0.7-2.0) mmol/L Calcium 7.5 L (8.4-10.2) mg/dL Magnesium (1.6-2.3) mg/dL Total Bilirubin (0.2-1.3) mg/dL Total Protein 4.0 L (6.3-8.2) g/dL Albumin 2.2 L (3.5-5.0) g/dL 08/28/23 Range/Units 05:51 WBC (3.8-10.6) k/uL RBC (4.30-5.90) m/uL Hgb (13.0-17.5) gm/dL Hct (39.0-53.0) % RDW (11.5-15.5) % Neutrophils # (1.3-7.7) k/uL Neutrophils # (Manual) (1.3-7.7) k/uL Lymphocytes # (Manual) (1.0-4.8) k/uL Metamyelocytes # (Man) (0) k/uL Myelocytes # (Manual) (0) k/uL ABG pH 7.32 L (7.35-7.45) ABG pCO2 (35-45) mmHg ABG pO2 (83-108) mmHg ABG HCO3 (21-25) mmol/L ABG Total CO2 (19-24) mmol/L ABG O2 Saturation (94-97) % Sodium (137-145) mmol/L Potassium (3.5-5.1) mmol/L Carbon Dioxide (22-30) mmol/L BUN (9-20) mg/dL Glucose (74-99) mg/dL Plasma Lactic Acid Vicente (0.7-2.0) mmol/L Calcium (8.4-10.2) mg/dL Magnesium (1.6-2.3) mg/dL Total Bilirubin (0.2-1.3) mg/dL Total Protein (6.3-8.2) g/dL Albumin (3.5-5.0) g/dL Microbiology - Last 24 Hours (Table) 08/27/23 14:15 Gram Stain - Preliminary Sputum Assessment and Plan Assessment: Impression: Acute hypoxic respiratory failure secondary to abdominal sepsis and septic shock Complete small bowel obstruction requiring exploratory laparotomy lysis of adhesions colostomy and decompression postoperative day #1 Acute fecal peritonitis. As noted intraoperatively. Hypotension secondary to sepsis septic shock and cardiogenic also in nature Severe LV dysfunction with ejection fraction of 20% Mild to moderate aortic regurgitation and tricuspid regurgitation with pulmonary hypertension Acute systolic congestive heart failure Underlying coronary artery disease and previous CABG History of Hodgkin's lymphoma and previous splenectomy History of prostate cancer History of atrial fibrillation presently in sinus rhythm History of hypothyroidism Dyslipidemia : Bilateral pleural effusions requiring thoracentesis, multiple times. Transudative in nature. Cardiogenic in nature. Recommendation: Continue ventilatory support patient is not ready for any weaning Continue hemodynamic support including norepinephrine, vasopressin, and dobutamine was added may have to increase the dose of dobutamine depending on blood pressure and urine output as well as overall hemodynamic status Continue TPN. Continue IV fluids Continue GI and DVT prophylaxis Continue nutritional support Continue antibiotic patient is now on Merrem, metronidazole, As long as the blood pressure is low, address Lasix on a daily basis whether to give or not Continue to monitor the patient in the ICU Overall prognosis remains extremely poor and guarded Critical care time is over 30 Will continue to follow Time with Patient: Greater than 30
[2023-08-28] MEDS: DOBUTamine DRIP 500 MG in DEXTROSE/WATER 1 250ML.BAG IV SCH (13:51)
[2023-08-28] MEDS: MEROPENEM 1 GM in SODIUM CHLORIDE 0.9% 100 ML IVPB SCH (13:51)
[2023-08-28] MEDS: FUROSEMIDE 10 MG/ML 4 ML VIAL IV STA (13:59)
--- NOTE | 2023-08-28 14:41 | P.PN ---
Subjective Progress Note Date: 08/28/23 CHIEF COMPLAINT: SBO HISTORY OF PRESENT ILLNESS: Patient mid to the hospital with small bowel obstruction. Currently ICU intubated and on mechanical ventilation. He is postop day #1 status post exploratory laparotomy with lysis of adhesions, decompressive colotomy with closure, transverse colon, peritoneal lavage. BP remains low and patient is maxed on pressors. White count has gone up from 14- 21. Afebrile. Mildly tachycardic. Patient is receiving IV albumin. PHYSICAL EXAM: VITAL SIGNS: Reviewed GENERAL: no acute distress. HEENT: No sclera icterus. Extraocular movements grossly intact. Moist buccal mucosa. Head is atraumatic, normocephalic. Hears conversational speech. No nasal drai nage. NECK: Supple without lymphadenopathy. CHEST: Non-labored respirations and equal bilateral excursions. CARDIOVASCULAR: Palpable 2+ radial pulses. ABDOMEN: Distended. Prevana wound vac intact MUSCULOSKELETAL: No clubbing or cyanosis. NEUROLOGIC: No focal or lateralizing signs. Cranial nerves II through XII grossly intact. PSYCH: Intubated and sedated ASSESSMENT: 1. Small bowel obstruction due to adhesions 2. Paroxysmal atrial fibrillation 3. History of Hodgkin's lymphoma status post splenectomy including chemoradiation 4. History of prostate cancer status postradiation 5. Bilateral pleural effusion 6. Unintentional weight loss 7. Ischemic cardiomyopathy 8. Moderate to severe protein malnutrition 9. 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 History of ischemic colitis 12. Fecal peritonitis PLAN: -Continue ICU management -Continue supportive care -CODE STATUS currently full code -Continue TPN for nutrition support -Continue IV fluids -Continue antibiotics -DVT prophylaxis Lovenox Physician Blending Machine Operator note has been reviewed by physician. Signing provider agrees with the documented findings, assessment, and plan of care. Objective - Vital Signs Vital signs: Vital Signs Temp 98.2 F 08/28/23 12:00 Pulse 103 H 08/28/23 12:00 Resp 19 08/28/23 12:00 BP 95/60 08/28/23 03:45 Pulse Ox 96 08/28/23 12:00 FiO2 40 08/28/23 12:00 Intake & Output 08/27/23 08/28/23 08/28/23 18:59 06:59 18:59 Intake Total 3658.883 5197.027 3162.705 Output Total 305 585 170 Balance 3353.883 4612.027 2992.705 Weight 75.4 kg Intake: IV 2768 2819 2726 Albumin Human 5% 250 ml 750 500 In Empty Bag 1 bag @ 250 mls/hr IVPB ONCE ONE Rx#: [id number] Mvi, Adult No.4 with Vit 540 K 10 ml Trace (Conc-1Ml/ Dose) 1 ml Sodium Chloride 4Meq/ml Vial 20 meq In Amino Acid 5%-D20w +Lytes*E* 1,000 ml @ 90 mls/hr IV .BY DURATION [facility] Rx#:[id number] NS 2550 1800 650 NS Pressure Pack 18 69 1036 Potassium Chloride 10 meq 200 In Water For Injection 1 100ml.bag @ 100 mls/hr IVPB Q1H [facility] Rx#: [id number] Intake, IV Titration 607.848 5667.027 436.705 Amount Albumin Human 5% 250 ml 250 In Empty Bag 1 bag @ 250 mls/hr IVPB ONCE ONE Rx#: [id number] DOBUTamine DRIP 500 mg In 6.950 Dextrose/Water 1 250ml. bag @ 2 MCG/KG/MIN 4.17 mls/hr IV .Q24H [facility] Rx#: [id number] Magnesium Sulfate-D5w Pmx 200 50 1 gm In Dextrose/Water 1 100ml.bag @ 100 mls/hr IVPB Q1H [facility] Rx#: [id number] Mvi, Adult No.4 with Vit 270 K 10 ml Trace (Conc-1Ml/ Dose) 1 ml Sodium Acetate 30 meq Potassium Chloride 40 meq Calcium Gluconate 1 gm In Amino Acids 5 %/Dextrose 20 % 1 ,000 ml @ 30 mls/hr IV . Q24H [facility] Rx#:[id number] Mvi, Adult No.4 with Vit 954 K 10 ml Trace (Conc-1Ml/ Dose) 1 ml Sodium Chloride 4Meq/ml Vial 20 meq In Amino Acid 5%-D20w +Lytes*E* 1,000 ml @ 90 mls/hr IV .BY DURATION [facility] Rx#:[id number] Norepinephrine 4 mg In 116.333 590.687 254 Sodium Chloride 0.9% 250 ml @ 0.03 MCG/KG/MIN 7. 944 mls/hr IV .Q24H [facility] Rx#:[id number] Piperacillin-Tazobactam 3 100 .375 gm In Sodium Chloride 0.9% 100 ml @ 25 mls/hr IVPB Q8HR [facility] Rx# :[id number] Potassium Chloride 20 meq 200 In Water For Injection 1 100ml.bag @ 50 mls/hr IVPB Q2H [facility] Rx#: [id number] Sodium Phosphate 15 mmol 180 90 Sodium Acetate 10 meq Potassium Chloride 40 meq Calcium Gluconate 1 gm In Amino Acids 5 %/ Dextrose 20 % 1,000 ml @ 90 mls/hr IV .BY DURATION [facility] Rx#:[id number] Vasopressin 20 unit In 31.977 Sodium Chloride 0.9% 50 ml @ 0.04 UNITS/MIN 6.12 mls/hr IV .Q8H20M [facility] Rx# :[id number] ceFAZolin 2 gm In Sodium 50 Chloride 0.9% 50 ml @ 100 mls/hr IVPB ONCE ONE Rx# :[id number] metroNIDAZOLE-NS PMX 500 100 mg In Saline 1 100ml.bag @ 100 mls/hr IVPB ONCE STA Rx#:[id number] propofoL 1,000 mg In 37.600 141.363 82.705 Empty Bag 1 bag @ 15 MCG/ KG/MIN 6.255 mls/hr IV . Q16H [facility] Rx#:[id number] Output: Gastric Drainage 200 Urine 255 385 170 Estimated Blood Loss 50 Other: Voiding Method Indwelling Catheter Indwelling Catheter Indwelling Catheter ABP, PAP, CO, CI - Last Documented Arterial Blood Pressure 91/45 - Labs CBC & Chem 7: 08/28/23 04:05 08/28/23 04:05 Labs: Abnormal Lab Results - Last 24 Hours (Table) 08/27/23 08/27/23 08/27/23 Range/Units 14:03 14:03 14:16 WBC 11.1 H (3.8-10.6) k/uL RBC (4.30-5.90) m/uL Hgb 12.4 L (13.0-17.5) gm/dL Hct (39.0-53.0) % RDW (11.5-15.5) % Neutrophils # 9.4 H (1.3-7.7) k/uL Neutrophils # (Manual) 9.40 H (1.3-7.7) k/uL Lymphocytes # (Manual) (1.0-4.8) k/uL Metamyelocytes # (Man) (0) k/uL Myelocytes # (Manual) 0.11 H (0) k/uL ABG pH (7.35-7.45) ABG pCO2 47 H (35-45) mmHg ABG pO2 >400 H (83-108) mmHg ABG HCO3 29 H (21-25) mmol/L ABG Total CO2 30 H (19-24) mmol/L ABG O2 Saturation 98.9 H (94-97) % Sodium 134 L (137-145) mmol/L Potassium 3.4 L (3.5-5.1) mmol/L Carbon Dioxide (22-30) mmol/L BUN 31 H (9-20) mg/dL Glucose 130 H (74-99) mg/dL Plasma Lactic Acid Vicente (0.7-2.0) mmol/L Calcium (8.4-10.2) mg/dL Magnesium 1.3 L (1.6-2.3) mg/dL Total Bilirubin (0.2-1.3) mg/dL Total Protein (6.3-8.2) g/dL Albumin (3.5-5.0) g/dL 08/27/23 08/27/23 08/27/23 Range/Units 22:30 22:30 22:30 WBC 14.3 H (3.8-10.6) k/uL RBC 4.09 L (4.30-5.90) m/uL Hgb 11.9 L (13.0-17.5) gm/dL Hct 37.3 L (39.0-53.0) % RDW 15.7 H (11.5-15.5) % Neutrophils # (1.3-7.7) k/uL Neutrophils # (Manual) 13.80 H (1.3-7.7) k/uL Lymphocytes # (Manual) (1.0-4.8) k/uL Metamyelocytes # (Man) (0) k/uL Myelocytes # (Manual) (0) k/uL ABG pH (7.35-7.45) ABG pCO2 (35-45) mmHg ABG pO2 (83-108) mmHg ABG HCO3 (21-25) mmol/L ABG Total CO2 (19-24) mmol/L ABG O2 Saturation (94-97) % Sodium 134 L (137-145) mmol/L Potassium (3.5-5.1) mmol/L Carbon Dioxide 19 L (22-30) mmol/L BUN 29 H (9-20) mg/dL Glucose 222 H (74-99) mg/dL Plasma Lactic Acid Vicente 2.4 H* (0.7-2.0) mmol/L Calcium 7.8 L (8.4-10.2) mg/dL Magnesium (1.6-2.3) mg/dL Total Bilirubin 1.4 H (0.2-1.3) mg/dL Total Protein 4.5 L (6.3-8.2) g/dL Albumin 2.6 L (3.5-5.0) g/dL 08/28/23 08/28/23 08/28/23 Range/Units 02:15 04:05 04:05 WBC 21.5 H (3.8-10.6) k/uL RBC 4.09 L (4.30-5.90) m/uL Hgb 11.9 L (13.0-17.5) gm/dL Hct 37.6 L (39.0-53.0) % RDW (11.5-15.5) % Neutrophils # (1.3-7.7) k/uL Neutrophils # (Manual) 19.90 H (1.3-7.7) k/uL Lymphocytes # (Manual) 0.22 L (1.0-4.8) k/uL Metamyelocytes # (Man) 0.86 H (0) k/uL Myelocytes # (Manual) (0) k/uL ABG pH (7.35-7.45) ABG pCO2 (35-45) mmHg ABG pO2 (83-108) mmHg ABG HCO3 (21-25) mmol/L ABG Total CO2 (19-24) mmol/L ABG O2 Saturation (94-97) % Sodium 133 L (137-145) mmol/L Potassium (3.5-5.1) mmol/L Carbon Dioxide 20 L (22-30) mmol/L BUN 31 H (9-20) mg/dL Glucose 212 H (74-99) mg/dL Plasma Lactic Acid Vicente 2.1 H* (0.7-2.0) mmol/L Calcium 7.5 L (8.4-10.2) mg/dL Magnesium (1.6-2.3) mg/dL Total Bilirubin (0.2-1.3) mg/dL Total Protein 4.0 L (6.3-8.2) g/dL Albumin 2.2 L (3.5-5.0) g/dL 08/28/23 Range/Units 05:51 WBC (3.8-10.6) k/uL RBC (4.30-5.90) m/uL Hgb (13.0-17.5) gm/dL Hct (39.0-53.0) % RDW (11.5-15.5) % Neutrophils # (1.3-7.7) k/uL Neutrophils # (Manual) (1.3-7.7) k/uL Lymphocytes # (Manual) (1.0-4.8) k/uL Metamyelocytes # (Man) (0) k/uL Myelocytes # (Manual) (0) k/uL ABG pH 7.32 L (7.35-7.45) ABG pCO2 (35-45) mmHg ABG pO2 (83-108) mmHg ABG HCO3 (21-25) mmol/L ABG Total CO2 (19-24) mmol/L ABG O2 Saturation (94-97) % Sodium (137-145) mmol/L Potassium (3.5-5.1) mmol/L Carbon Dioxide (22-30) mmol/L BUN (9-20) mg/dL Glucose (74-99) mg/dL Plasma Lactic Acid Vicente (0.7-2.0) mmol/L Calcium (8.4-10.2) mg/dL Magnesium (1.6-2.3) mg/dL Total Bilirubin (0.2-1.3) mg/dL Total Protein (6.3-8.2) g/dL Albumin (3.5-5.0) g/dL Microbiology - Last 24 Hours (Table) 08/27/23 14:15 Gram Stain - Preliminary Sputum
[2023-08-28] MEDS ORDERED: [UNRECOGNIZED DRUG - REMARK] IV SCH (15:00)
[2023-08-28] MEDS: [UNRECOGNIZED DRUG - REMARK] IV SCH (15:51)
--- NOTE | 2023-08-28 16:00 | P.PN ---
Subjective Progress Note Date: 08/28/23 CHF The patient is a pleasant 72-year-old gentleman with a past medical history significant for coronary artery disease and cardiomyopathy and congestive heart failure who was admitted to the hospital with small bowel obstruction. He developed heart failure. The echo showed severe cardiomyopathy with EF around 20%. August 26, 2023 The patient was seen and evaluated this morning. He has severe left upper extremity edema. I am going to start the patient on Lasix IV at the small dose 20 mg twice daily and continue monitoring the kidney function and electrolytes and also obtain a venous duplex study to rule out DVT. Meanwhile continue the current medical regimen. He cannot take any oral medication at this point. The physical examination is remarkable for severe left upper extremity edema. August 27, 2023 The patient was seen in the intensive care unit. He underwent exploratory laparotomy and lysis of adhesion earlier this morning. Currently he is intubated on mechanical ventilation. Hemodynamically he is unstable and requiring small dose of norepinephrine. He is not receiving any oral medication. He is maintaining normal sinus mechanism. From the cardiovascular standpoint of view, we will continue the current medical regimen and consider adding dobutamine giving that he does have severe cardiomyopathy with an ejection fraction of 20%. The chest x-ray and blood work were reviewed. The examination is remarkable for the patient being intubated on mechanical ventilation with diminished breathing sounds bilaterally and no edema was noted. 08/28/2023 Patient is on norepinephrine, vasopressin and dobutamine drip. He continues to be on ventilator support failing weaning trial today. On exam Sinus rhythm S1-S2 audible, regular pulses, no significant murmurs, On mechanical ventilator support, diminished breath sounds bilaterally, no edema Assessment Coronary artery disease Small bowel obstruction Status post abdominal surgery as described above Severe cardiomyopathy Bilateral pleural effusion Status post pleurocentesis Left upper extremity edema Multiple comorbid conditions Plan Continue the current medical regimen Continue supporting the blood pressure dobutamine given the severe cardiomyopathy Continue monitor the kidney function and electrolytes and hemoglobin Continue monitor the urine output Considering patient's severe cardiomyopathy, s/p surgery, sepsis and poor clinical response to current medical therapy, Overall patient's prognosis is very poor. Objective - Vital Signs Vital signs: Vital Signs Temp 98.2 F 08/28/23 12:00 Pulse 101 H 08/28/23 14:00 Resp 18 08/28/23 14:00 BP 95/60 08/28/23 03:45 Pulse Ox 97 08/28/23 14:00 FiO2 40 08/28/23 15:18 Intake & Output 08/27/23 08/28/23 08/28/23 18:59 06:59 18:59 Intake Total 3658.883 5197.027 3795.917 Output Total 305 585 745 Balance 3353.883 4612.027 3050.917 Weight 75.4 kg 75.4 kg Intake: IV 2768 2819 3314 Albumin Human 5% 250 ml 750 500 In Empty Bag 1 bag @ 250 mls/hr IVPB ONCE ONE Rx#: [id number] Mvi, Adult No.4 with Vit 810 K 10 ml Trace (Conc-1Ml/ Dose) 1 ml Sodium Chloride 4Meq/ml Vial 20 meq In Amino Acid 5%-D20w +Lytes*E* 1,000 ml @ 90 mls/hr IV .BY DURATION [facility] Rx#:[id number] NS 2550 1800 950 NS Pressure Pack 18 69 1054 Potassium Chloride 10 meq 200 In Water For Injection 1 100ml.bag @ 100 mls/hr IVPB Q1H [facility] Rx#: [id number] Intake, IV Titration 183.081 6367.027 481.917 Amount Albumin Human 5% 250 ml 250 In Empty Bag 1 bag @ 250 mls/hr IVPB ONCE ONE Rx#: [id number] DOBUTamine DRIP 500 mg In 6.950 Dextrose/Water 1 250ml. bag @ 2 MCG/KG/MIN 4.17 mls/hr IV .Q24H [facility] Rx#: [id number] Magnesium Sulfate-D5w Pmx 200 50 1 gm In Dextrose/Water 1 100ml.bag @ 100 mls/hr IVPB Q1H [facility] Rx#: [id number] Mvi, Adult No.4 with Vit 270 K 10 ml Trace (Conc-1Ml/ Dose) 1 ml Sodium Acetate 30 meq Potassium Chloride 40 meq Calcium Gluconate 1 gm In Amino Acids 5 %/Dextrose 20 % 1 ,000 ml @ 30 mls/hr IV . Q24H [facility] Rx#:[id number] Mvi, Adult No.4 with Vit 954 K 10 ml Trace (Conc-1Ml/ Dose) 1 ml Sodium Chloride 4Meq/ml Vial 20 meq In Amino Acid 5%-D20w +Lytes*E* 1,000 ml @ 90 mls/hr IV .BY DURATION [facility] Rx#:[id number] Norepinephrine 4 mg In 116.333 590.687 254 Sodium Chloride 0.9% 250 ml @ 0.03 MCG/KG/MIN 7. 944 mls/hr IV .Q24H [facility] Rx#:[id number] Piperacillin-Tazobactam 3 100 .375 gm In Sodium Chloride 0.9% 100 ml @ 25 mls/hr IVPB Q8HR [facility] Rx# :[id number] Potassium Chloride 20 meq 200 In Water For Injection 1 100ml.bag @ 50 mls/hr IVPB Q2H [facility] Rx#: [id number] Sodium Phosphate 15 mmol 180 90 Sodium Acetate 10 meq Potassium Chloride 40 meq Calcium Gluconate 1 gm In Amino Acids 5 %/ Dextrose 20 % 1,000 ml @ 90 mls/hr IV .BY DURATION [facility] Rx#:[id number] Vasopressin 20 unit In 31.977 45.212 Sodium Chloride 0.9% 50 ml @ 0.04 UNITS/MIN 6.12 mls/hr IV .Q8H20M [facility] Rx# :[id number] ceFAZolin 2 gm In Sodium 50 Chloride 0.9% 50 ml @ 100 mls/hr IVPB ONCE ONE Rx# :[id number] metroNIDAZOLE-NS PMX 500 100 mg In Saline 1 100ml.bag @ 100 mls/hr IVPB ONCE STA Rx#:[id number] propofoL 1,000 mg In 37.600 141.363 82.705 Empty Bag 1 bag @ 15 MCG/ KG/MIN 6.255 mls/hr IV . Q16H [facility] Rx#:[id number] Output: Gastric Drainage 200 Urine 255 385 745 Estimated Blood Loss 50 Other: Voiding Method Indwelling Catheter Indwelling Catheter Indwelling Catheter ABP, PAP, CO, CI - Last Documented Arterial Blood Pressure 107/52 - Labs CBC & Chem 7: 08/28/23 04:05 08/28/23 04:05 Labs: Abnormal Lab Results - Last 24 Hours (Table) 08/27/23 08/27/23 08/27/23 Range/Units 14:03 22:30 22:30 WBC 11.1 H 14.3 H (3.8-10.6) k/uL RBC 4.09 L (4.30-5.90) m/uL Hgb 12.4 L 11.9 L (13.0-17.5) gm/dL Hct 37.3 L (39.0-53.0) % RDW 15.7 H (11.5-15.5) % Neutrophils # 9.4 H (1.3-7.7) k/uL Neutrophils # (Manual) 9.40 H 13.80 H (1.3-7.7) k/uL Lymphocytes # (Manual) (1.0-4.8) k/uL Metamyelocytes # (Man) (0) k/uL Myelocytes # (Manual) 0.11 H (0) k/uL ABG pH (7.35-7.45) Sodium 134 L (137-145) mmol/L Carbon Dioxide 19 L (22-30) mmol/L BUN 29 H (9-20) mg/dL Glucose 222 H (74-99) mg/dL Plasma Lactic Acid Vicente (0.7-2.0) mmol/L Calcium 7.8 L (8.4-10.2) mg/dL Total Bilirubin 1.4 H (0.2-1.3) mg/dL Total Protein 4.5 L (6.3-8.2) g/dL Albumin 2.6 L (3.5-5.0) g/dL 08/27/23 08/28/23 08/28/23 Range/Units 22:30 02:15 04:05 WBC (3.8-10.6) k/uL RBC (4.30-5.90) m/uL Hgb (13.0-17.5) gm/dL Hct (39.0-53.0) % RDW (11.5-15.5) % Neutrophils # (1.3-7.7) k/uL Neutrophils # (Manual) (1.3-7.7) k/uL Lymphocytes # (Manual) (1.0-4.8) k/uL Metamyelocytes # (Man) (0) k/uL Myelocytes # (Manual) (0) k/uL ABG pH (7.35-7.45) Sodium 133 L (137-145) mmol/L Carbon Dioxide 20 L (22-30) mmol/L BUN 31 H (9-20) mg/dL Glucose 212 H (74-99) mg/dL Plasma Lactic Acid Vicente 2.4 H* 2.1 H* (0.7-2.0) mmol/L Calcium 7.5 L (8.4-10.2) mg/dL Total Bilirubin (0.2-1.3) mg/dL Total Protein 4.0 L (6.3-8.2) g/dL Albumin 2.2 L (3.5-5.0) g/dL 08/28/23 08/28/23 Range/Units 04:05 05:51 WBC 21.5 H (3.8-10.6) k/uL RBC 4.09 L (4.30-5.90) m/uL Hgb 11.9 L (13.0-17.5) gm/dL Hct 37.6 L (39.0-53.0) % RDW (11.5-15.5) % Neutrophils # (1.3-7.7) k/uL Neutrophils # (Manual) 19.90 H (1.3-7.7) k/uL Lymphocytes # (Manual) 0.22 L (1.0-4.8) k/uL Metamyelocytes # (Man) 0.86 H (0) k/uL Myelocytes # (Manual) (0) k/uL ABG pH 7.32 L (7.35-7.45) Sodium (137-145) mmol/L Carbon Dioxide (22-30) mmol/L BUN (9-20) mg/dL Glucose (74-99) mg/dL Plasma Lactic Acid Vicente (0.7-2.0) mmol/L Calcium (8.4-10.2) mg/dL Total Bilirubin (0.2-1.3) mg/dL Total Protein (6.3-8.2) g/dL Albumin (3.5-5.0) g/dL Microbiology - Last 24 Hours (Table) 08/27/23 14:15 Gram Stain - Preliminary Sputum
[2023-08-28 18:25] LABS: HCT 36.3 % (39.0-53.0); HGB 11.2 gm/dL (13.0-17.5); Hypochromasia Moderate; MCH 28.9 pg (25.0-35.0); MCHC 30.9 g/dL (31.0-37.0); MCV 93.6 fL (80.0-100.0); Mean Platelet Volume 9.2; Platelet Count 221 k/uL (150-450); RBC 3.87 m/uL (4.30-5.90); RDW 15.6 % (11.5-15.5); WBC 35.7 k/uL (3.8-10.6)
[2023-08-28 18:42] LABS: African American GFR (CKD) >90 (>60 ml/min/1.73 sqM); Anion Gap 6 mmol/L; Blood Urea Nitrogen 30 mg/dL (9-20); Calcium 7.3 mg/dL (8.4-10.2); Carbon Dioxide 21 mmol/L (22-30); Chloride 109 mmol/L (98-107); Glucose 137 mg/dL (74-99); Non-African American GFR(CKD) >90 (>60 ml/min/1.73 sqM); Potassium 4.3 mmol/L (3.5-5.1); Sodium 136 mmol/L (137-145)
--- NOTE | 2023-08-28 21:42 | P.CONS ---
History of Present Illness - Reason for Consult Consult date: 08/28/23 Sepsis Requesting physician: Petrona Harding - Chief Complaint Abdominal pain x days - History of Present Illness Patient is a 72-year-old male with a past medical history significant for atrial fibrillation coronary artery disease hyperlipidemia [place] prostate cancer presenting to the hospital about 10 days ago for evaluation of abdominal pain nausea and vomiting patient has been diagnosed with the small bowel obstruction and has been treated medically patient did not improve with the medical treatment and was taken to the OR yesterday afternoon and is status post explore laparotomy with lysis of adhesion decompressive colectomy with closure transverse colon peritoneal lavage application of incisional wound VAC system patient did receive cefazolin and Flagyl perioperatively patient was admitted to the ICU on the vent this morning the patient has been afebrile patient is on the vent 40% FiO2 patient requiring pressor support to maintain his blood pressure and is tachycardic and also noticed to have a white count of 21.5 patient was started on Zosyn infectious disease was consulted for further management of antibiotic therapy most information has been obtained from review the chart talking nursing staff the patient is currently intubated on the vent and cannot provide any history and no family member at the bedside Review of Systems Positive points has been mentioned in HPI complete review could not be obtained because patient intubated on the vent Past Medical History Past Medical History: Atrial Fibrillation, Coronary Artery Disease (CAD), Cancer, Heart Failure, Hyperlipidemia, Myocardial Infarction ([place]), Thyroid Disorder Additional Past Medical History / Comment(s): [facility] [place] [id number]), PROSTATE CANCER (JUN 2020). Last Myocardial Infarction Date:: 2011 History of Any Multi-Drug Resistant Organisms: None Reported Past Surgical History: Coronary Bypass/CABG, Heart Catheterization, Joint Replacement, Orthopedic Surgery Additional Past Surgical History / Comment(s): SPLEENECTOMY, TOTAL LEFT HIP (2004) Past Anesthesia/Blood Transfusion Reactions: No Reported Reaction Type of Cardiac Device: AICD Device Placement Date:: Past Psychological History: No Psychological Hx Reported Smoking Status: Never smoker Past Alcohol Use History: None Reported Past Drug Use History: None Reported - Past Family History Sister(s) Family Medical History: Cancer Additional Family Medical History / Comment(s): OVARIAN CANCER family Family Medical History: Coronary Artery Disease (CAD) Medications and Allergies Home Medications Medication Instructions Recorded Confirmed Type Aspirin [Adult Low Dose Aspirin EC] 162 mg PO DAILY 07/12/17 08/20/23 History Levothyroxine Sodium [Synthroid] 100 mcg PO DAILY 07/12/17 08/20/23 History Benazepril [Lotensin] 5 mg PO HS 02/04/20 08/20/23 History Tamsulosin [Flomax] 0.4 mg PO HS 11/02/20 08/20/23 History Atorvastatin [Lipitor] 40 mg PO HS 06/11/21 08/20/23 History Spironolactone [Aldactone] 50 mg PO DAILY 07/24/23 08/20/23 History Famotidine [Pepcid] 20 mg PO BID #30 tablet 07/28/23 08/20/23 Rx Ferrous Sulfate [Iron (65 MG 325 mg PO Q2D 08/01/23 08/20/23 History Elemental)] Amoxic-Pot Clav 875-125Mg 1 tab PO Q12HR 5 Days #10 tab 08/17/23 08/20/23 Rx [Augmentin 875-125] Fluconazole [Diflucan] 200 mg PO DAILY #5 tablet 08/17/23 08/20/23 Rx Furosemide [Lasix] 40 mg PO DAILY #7 tablet 08/17/23 08/20/23 Rx Metoprolol Tartrate [Lopressor] 12.5 mg PO BID #60 tab 08/17/23 08/20/23 Rx Potassium Chloride 10 meq PO DAILY #7 cap 08/17/23 08/20/23 Rx Allergies Allergy/AdvReac Type Severity Reaction Status Date / Time bee venom protein (honey bee) AdvReac Severe Rash/Hives Verified 08/20/23 12:52 amoxicillin AdvReac Diarrhea Verified 08/20/23 12:52 Physical Exam Vitals: Vital Signs Temp Pulse Pulse Resp BP Pulse Ox FiO2 08/28/23 09:00 99 22 97 08/28/23 08:00 98 F 106 H 19 96 40 08/28/23 07:42 40 08/28/23 07:00 105 H 22 95 08/28/23 06:45 104 H 21 95 08/28/23 06:30 105 H 25 H 95 08/28/23 06:15 105 H 21 96 08/28/23 06:00 105 H 20 95 08/28/23 05:45 104 H 20 96 08/28/23 05:30 104 H 20 96 08/28/23 05:15 103 H 23 97 08/28/23 05:00 103 H 19 97 08/28/23 04:45 101 H 22 97 08/28/23 04:30 101 H 21 98 08/28/23 04:20 40 08/28/23 04:15 101 H 23 97 08/28/23 04:00 98.2 F 99 23 98 40 08/28/23 03:53 40 08/28/23 03:45 98 25 H 95/60 98 08/28/23 03:30 100 26 H 98 08/28/23 03:15 101 H 28 H 98 08/28/23 03:00 101 H 27 H 99 08/28/23 02:45 100 25 H 100 08/28/23 02:30 100 27 H 99 08/28/23 02:00 99 27 H 100 08/28/23 01:45 97 21 100 08/28/23 01:30 101 H 25 H 99 08/28/23 01:15 101 H 24 99 08/28/23 01:00 101 H 26 H 99 08/28/23 00:45 100 24 100 08/28/23 00:35 40 08/28/23 00:30 101 H 23 99 08/28/23 00:15 100 24 99 08/28/23 00:00 97.5 F L 100 27 H 100 40 08/27/23 23:45 98 27 H 100 08/27/23 23:30 98 28 H 100 08/27/23 23:15 99 29 H 95/64 99 08/27/23 23:00 96 28 H 100 08/27/23 22:45 98 30 H 100 08/27/23 22:30 100 31 H 100 08/27/23 22:15 93 35 H 100 08/27/23 22:00 96 16 100 08/27/23 21:45 92 16 100 08/27/23 21:30 92 16 100 08/27/23 21:15 92 16 100 08/27/23 21:00 91 16 100 08/27/23 20:06 40 08/27/23 20:00 97.4 F L 92 16 100 40 08/27/23 19:00 112 H 19 75/50 99 40 08/27/23 18:00 89 21 79/51 100 40 08/27/23 17:00 96.3 F L 93 23 79/51 100 40 08/27/23 16:30 93 18 100 40 08/27/23 16:00 96.3 F L 96 19 100 40 08/27/23 15:30 95.6 F L 109 H 25 H 100 40 08/27/23 15:27 40 08/27/23 15:15 112 H 27 H 100 08/27/23 15:00 124 H 22 98 50 08/27/23 14:45 126 H 20 97 08/27/23 14:30 115 H 19 98 50 08/27/23 14:20 50 08/27/23 14:15 116 H 16 99 100 08/27/23 14:01 100 08/27/23 14:00 96 17 100 100 08/27/23 13:58 100 08/27/23 13:50 97 16 100 100 08/27/23 13:48 96.8 F L Intake and Output 08/27/23 08/28/23 08/28/23 22:59 06:59 14:59 Intake Total 5140.250 3412.660 1492 Output Total 200 490 75 Balance 4940.250 2922.660 1417 Intake: IV 3680 1604 1138 Albumin Human 5% 250 ml 750 500 In Empty Bag 1 bag @ 250 mls/hr IVPB ONCE ONE Rx#: [id number] Mvi, Adult No.4 with Vit 270 K 10 ml Trace (Conc-1Ml/ Dose) 1 ml Sodium Chloride 4Meq/ml Vial 20 meq In Amino Acid 5%-D20w +Lytes*E* 1,000 ml @ 90 mls/hr IV .BY DURATION [facility] Rx#:[id number] NS 2900 1350 350 NS Pressure Pack 30 54 18 Potassium Chloride 10 meq 200 In Water For Injection 1 100ml.bag @ 100 mls/hr IVPB Q1H [facility] Rx#: [id number] Intake, IV Titration 8248.390 8259.660 354 Amount Albumin Human 5% 250 ml 250 In Empty Bag 1 bag @ 250 mls/hr IVPB ONCE ONE Rx#: [id number] DOBUTamine DRIP 500 mg In 6.950 Dextrose/Water 1 250ml. bag @ 2 MCG/KG/MIN 4.17 mls/hr IV .Q24H [facility] Rx#: [id number] Magnesium Sulfate-D5w Pmx 250 1 gm In Dextrose/Water 1 100ml.bag @ 100 mls/hr IVPB Q1H [facility] Rx#: [id number] Mvi, Adult No.4 with Vit 270 K 10 ml Trace (Conc-1Ml/ Dose) 1 ml Sodium Acetate 30 meq Potassium Chloride 40 meq Calcium Gluconate 1 gm In Amino Acids 5 %/Dextrose 20 % 1 ,000 ml @ 30 mls/hr IV . Q24H [facility] Rx#:[id number] Mvi, Adult No.4 with Vit 954 K 10 ml Trace (Conc-1Ml/ Dose) 1 ml Sodium Chloride 4Meq/ml Vial 20 meq In Amino Acid 5%-D20w +Lytes*E* 1,000 ml @ 90 mls/hr IV .BY DURATION [facility] Rx#:[id number] Norepinephrine 4 mg In 254.000 453.020 254 Sodium Chloride 0.9% 250 ml @ 0.03 MCG/KG/MIN 7. 944 mls/hr IV .Q24H [facility] Rx#:[id number] Piperacillin-Tazobactam 3 100 .375 gm In Sodium Chloride 0.9% 100 ml @ 25 mls/hr IVPB Q8HR [facility] Rx# :[id number] Potassium Chloride 20 meq 200 In Water For Injection 1 100ml.bag @ 50 mls/hr IVPB Q2H [facility] Rx#: [id number] Sodium Phosphate 15 mmol 270 Sodium Acetate 10 meq Potassium Chloride 40 meq Calcium Gluconate 1 gm In Amino Acids 5 %/ Dextrose 20 % 1,000 ml @ 90 mls/hr IV .BY DURATION [facility] Rx#:[id number] Vasopressin 20 unit In 31.977 Sodium Chloride 0.9% 50 ml @ 0.03 UNITS/MIN 4.59 mls/hr IV .Q11H7M [facility] Rx# :[id number] ceFAZolin 2 gm In Sodium 50 Chloride 0.9% 50 ml @ 100 mls/hr IVPB ONCE ONE Rx# :[id number] metroNIDAZOLE-NS PMX 500 100 mg In Saline 1 100ml.bag @ 100 mls/hr IVPB ONCE STA Rx#:[id number] propofoL 1,000 mg In 79.300 99.663 Empty Bag 1 bag @ 15 MCG/ KG/MIN 6.255 mls/hr IV . Q16H [facility] Rx#:[id number] Output: Gastric Drainage 200 Urine 200 290 75 Other: Voiding Method Indwelling Catheter Indwelling Catheter Indwelling Catheter Weight 75.4 kg ABP, PAP, CO, CI - Last 8 Hours Arterial Blood Pressure 91/50 Arterial Blood Pressure 95/49 Arterial Blood Pressure 89/47 Arterial Blood Pressure 91/44 Arterial Blood Pressure 87/48 Arterial Blood Pressure 92/49 Arterial Blood Pressure 98/49 Arterial Blood Pressure 95/51 Arterial Blood Pressure 95/50 Arterial Blood Pressure 81/46 Arterial Blood Pressure 95/47 Arterial Blood Pressure 91/47 Arterial Blood Pressure 89/46 Arterial Blood Pressure 89/45 Arterial Blood Pressure 99/49 Arterial Blood Pressure 100/47 Arterial Blood Pressure 89/45 Arterial Blood Pressure 96/48 Arterial Blood Pressure 104/49 Arterial Blood Pressure 99/49 Arterial Blood Pressure 97/47 GENERAL DESCRIPTION: Elderly male intubated on the vent HEENT: Shows Pallor , no scleral icterus. Oral mucous membrane is dry. NECK: Trachea central, no thyromegaly. LUNGS: Unlabored breathing. Decreased breath sounds at the base HEART: S1, S2, regular rate and rhythm. No loud murmur ABDOMEN: Distended and tense EXTREMITIES: No edema of feet. SKIN: No rash, no masses palpable. NEUROLOGICAL: The patient is sedated on the vent Results CBC & Chem 7: 09/05/23 03:45 09/05/23 03:45 Labs: Abnormal Lab Results - Last 24 Hours (Table) 08/27/23 08/27/23 08/27/23 Range/Units 14:03 14:03 14:16 WBC 11.1 H (3.8-10.6) k/uL RBC (4.30-5.90) m/uL Hgb 12.4 L (13.0-17.5) gm/dL Hct (39.0-53.0) % RDW (11.5-15.5) % Neutrophils # 9.4 H (1.3-7.7) k/uL Neutrophils # (Manual) 9.40 H (1.3-7.7) k/uL Lymphocytes # (Manual) (1.0-4.8) k/uL Metamyelocytes # (Man) (0) k/uL Myelocytes # (Manual) 0.11 H (0) k/uL ABG pH (7.35-7.45) ABG pCO2 47 H (35-45) mmHg ABG pO2 >400 H (83-108) mmHg ABG HCO3 29 H (21-25) mmol/L ABG Total CO2 30 H (19-24) mmol/L ABG O2 Saturation 98.9 H (94-97) % Sodium 134 L (137-145) mmol/L Potassium 3.4 L (3.5-5.1) mmol/L Carbon Dioxide (22-30) mmol/L BUN 31 H (9-20) mg/dL Glucose 130 H (74-99) mg/dL Plasma Lactic Acid Vicente (0.7-2.0) mmol/L Calcium (8.4-10.2) mg/dL Magnesium 1.3 L (1.6-2.3) mg/dL Total Bilirubin (0.2-1.3) mg/dL Total Protein (6.3-8.2) g/dL Albumin (3.5-5.0) g/dL 08/27/23 08/27/23 08/27/23 Range/Units 22:30 22:30 22:30 WBC 14.3 H (3.8-10.6) k/uL RBC 4.09 L (4.30-5.90) m/uL Hgb 11.9 L (13.0-17.5) gm/dL Hct 37.3 L (39.0-53.0) % RDW 15.7 H (11.5-15.5) % Neutrophils # (1.3-7.7) k/uL Neutrophils # (Manual) 13.80 H (1.3-7.7) k/uL Lymphocytes # (Manual) (1.0-4.8) k/uL Metamyelocytes # (Man) (0) k/uL Myelocytes # (Manual) (0) k/uL ABG pH (7.35-7.45) ABG pCO2 (35-45) mmHg ABG pO2 (83-108) mmHg ABG HCO3 (21-25) mmol/L ABG Total CO2 (19-24) mmol/L ABG O2 Saturation (94-97) % Sodium 134 L (137-145) mmol/L Potassium (3.5-5.1) mmol/L Carbon Dioxide 19 L (22-30) mmol/L BUN 29 H (9-20) mg/dL Glucose 222 H (74-99) mg/dL Plasma Lactic Acid Vicente 2.4 H* (0.7-2.0) mmol/L Calcium 7.8 L (8.4-10.2) mg/dL Magnesium (1.6-2.3) mg/dL Total Bilirubin 1.4 H (0.2-1.3) mg/dL Total Protein 4.5 L (6.3-8.2) g/dL Albumin 2.6 L (3.5-5.0) g/dL 08/28/23 08/28/23 08/28/23 Range/Units 02:15 04:05 04:05 WBC 21.5 H (3.8-10.6) k/uL RBC 4.09 L (4.30-5.90) m/uL Hgb 11.9 L (13.0-17.5) gm/dL Hct 37.6 L (39.0-53.0) % RDW (11.5-15.5) % Neutrophils # (1.3-7.7) k/uL Neutrophils # (Manual) 19.90 H (1.3-7.7) k/uL Lymphocytes # (Manual) 0.22 L (1.0-4.8) k/uL Metamyelocytes # (Man) 0.86 H (0) k/uL Myelocytes # (Manual) (0) k/uL ABG pH (7.35-7.45) ABG pCO2 (35-45) mmHg ABG pO2 (83-108) mmHg ABG HCO3 (21-25) mmol/L ABG Total CO2 (19-24) mmol/L ABG O2 Saturation (94-97) % Sodium 133 L (137-145) mmol/L Potassium (3.5-5.1) mmol/L Carbon Dioxide 20 L (22-30) mmol/L BUN 31 H (9-20) mg/dL Glucose 212 H (74-99) mg/dL Plasma Lactic Acid Vicente 2.1 H* (0.7-2.0) mmol/L Calcium 7.5 L (8.4-10.2) mg/dL Magnesium (1.6-2.3) mg/dL Total Bilirubin (0.2-1.3) mg/dL Total Protein 4.0 L (6.3-8.2) g/dL Albumin 2.2 L (3.5-5.0) g/dL 08/28/23 Range/Units 05:51 WBC (3.8-10.6) k/uL RBC (4.30-5.90) m/uL Hgb (13.0-17.5) gm/dL Hct (39.0-53.0) % RDW (11.5-15.5) % Neutrophils # (1.3-7.7) k/uL Neutrophils # (Manual) (1.3-7.7) k/uL Lymphocytes # (Manual) (1.0-4.8) k/uL Metamyelocytes # (Man) (0) k/uL Myelocytes # (Manual) (0) k/uL ABG pH 7.32 L (7.35-7.45) ABG pCO2 (35-45) mmHg ABG pO2 (83-108) mmHg ABG HCO3 (21-25) mmol/L ABG Total CO2 (19-24) mmol/L ABG O2 Saturation (94-97) % Sodium (137-145) mmol/L Potassium (3.5-5.1) mmol/L Carbon Dioxide (22-30) mmol/L BUN (9-20) mg/dL Glucose (74-99) mg/dL Plasma Lactic Acid Vicente (0.7-2.0) mmol/L Calcium (8.4-10.2) mg/dL Magnesium (1.6-2.3) mg/dL Total Bilirubin (0.2-1.3) mg/dL Total Protein (6.3-8.2) g/dL Albumin (3.5-5.0) g/dL Assessment and Plan (1) Fecal peritonitis Status: Acute Code(s): K65.8 - OTHER PERITONITIS SNOMED Code(s): 378660726 (2) Leukocytosis Status: Acute Code(s): D72.829 - ELEVATED WHITE BLOOD CELL COUNT, UNSPECIFIED SNOMED Code(s): 184771996 (3) Sepsis Status: Acute Code(s): A41.9 - SEPSIS, UNSPECIFIED ORGANISM SNOMED Code(s): 81051707 Plan: 1patient with sepsis/septic shock in this patient who did have a tachycardia elevated white count source is fecal peritonitis in this patient who is status post extensive abdominal surgery yesterday for small bowel obstruction we will need to cover for enteric gram-negative both aerobes and anaerobes 2-culture have been obtained results will be followed 3-patient has been started on Zosyn this morning at 3.375 g 8 hours should be adequate for underlying fecal peritonitis We will follow on clinical condition and cultures to further adjust medication if needed Thank you for this consultation we will follow the patient along with you Dictation was produced using [employer] dictation software. please excuse any grammatical, word or spelling errors. Time with Patient: Greater than 30
[2023-08-28] MEDS: EPINEPHrine 4 MG in DEXTROSE 5% IN WATER 250 ML IV SCH (22:29)
[2023-08-29 02:35] LABS: ABG Base Excess -3.5 mmol/L; ABG HCO3 22 mmol/L (21-25); ABG PCO2 41 mmHg (35-45); ABG PH 7.34 (7.35-7.45); ABG PO2 87 mmHg (83-108); ABG TCO2 24 mmol/L (19-24)
[2023-08-29 02:56] LABS: African American GFR (CKD) >90 (>60 ml/min/1.73 sqM); Anion Gap 4 mmol/L; Blood Urea Nitrogen 31 mg/dL (9-20); Calcium 7.1 mg/dL (8.4-10.2); Carbon Dioxide 22 mmol/L (22-30); Chloride 109 mmol/L (98-107); Glucose 149 mg/dL (74-99); Non-African American GFR(CKD) 89 (>60 ml/min/1.73 sqM); Phosphorus 3.3 mg/dL (2.5-4.5); Potassium 4.2 mmol/L (3.5-5.1); Sodium 135 mmol/L (137-145)
[2023-08-29 04:20] LABS: HCT 35.5 % (39.0-53.0); Hypochromasia Marked; MCH 29.3 pg (25.0-35.0); MCHC 30.9 g/dL (31.0-37.0); MCV 94.8 fL (80.0-100.0); Mean Platelet Volume 10.5; Platelet Count 218 k/uL (150-450); RBC 3.75 m/uL (4.30-5.90); RDW 15.5 % (11.5-15.5); WBC 35.9 k/uL (3.8-10.6)
[2023-08-29 06:11] LABS: ABG Base Excess -3.5 mmol/L; ABG HCO3 22 mmol/L (21-25); ABG PCO2 39 mmHg (35-45); ABG PH 7.36 (7.35-7.45); ABG PO2 79 mmHg (83-108); ABG TCO2 23 mmol/L (19-24)
[2023-08-29 06:39] LABS: Band Neutrophils % 11 %; Crenated RBC Present; Lymphocytes # (M) 2.15 k/uL (1.0-4.8); Monocytes # (M) 0.36 k/uL (0-1.0); Neutrophils % (M) 82 %; Nucleated Red Blood Cells 0 /100 WBC (0-0); Total Cells Counted 100
[2023-08-29 06:41] LABS: Allen Test Performed? no
[2023-08-29 06:42] LABS: Anisocytosis (M) Present; Poikilocytosis (M) Present
[2023-08-29 06:44] LABS: Howell-Jolly Bodies Present; RBC Fragments Present
[2023-08-29] MEDS: PANTOPRAZOLE 40 MG/10 ML VIAL IVP SCH (07:30)
--- NOTE | 2023-08-29 09:15 | XR ---
EXAMINATION TYPE: XR chest 1V portable DATE OF EXAM: 08/29/2023 Comparison: 08/28/2023 Clinical History: 72-year-old male Tube placement Findings: ET tube at the level of the medial clavicular heads. NG tube courses below the diaphragm. Left IJ CVC tip upper right atrium. Median sternotomy wires and post-CABG clips. Left anterior chest wall ICD ge nerator with right ventricular lead. Heart normal size. Ongoing moderate left pleural effusion with i nterstitial and hazy bilateral lung opacities, left greater than right. Trace right pleural effusion is increased. Right PICC tip at the cavoatrial junction. Impression: 1. Ongoing CHF with interstitial pulmonary edema. 2. Ongoing moderate left and now trace right pleural effusions with adjacent atelectasis and/or conso lidation.
--- NOTE | 2023-08-29 12:48 | P.PN ---
Subjective Progress Note Date: 08/29/23 Principal diagnosis: Acute small bowel obstruction I was asked to evaluate this patient regarding bilateral pleural effusions. The patient was admitted on 08/20/2023 for complaints of nausea and emesis. The patient is known to me from a previous hospitalization between 08/01/2023 and 08/17/2023. At that time, the patient was quite ill and he was seen and evaluated in the intensive care unit for shock/hypotension which was thought to be septic in nature. At time, the patient also had ileus/small bowel obstruction and ischemic colitis and the patient was treated conservatively and following his discharge he was tolerating full liquid diet but not regular.. Septic shock was highly suspected and the patient is immunocompromised due to his previous splenectomy. The patient was treated and the patient was discharged to be readmitted after a short period of time. He is known to have severe cardiomyopathy with an ejection fraction of 30 to 35%. He has coronary artery disease with previous CT and previous coronary bypass surgery. He also has bilateral pleural effusion and we have performed a right-sided thoracentesis on this patient on 08/10/2023 and based on that pleural fluid analysis, the patient had a transudate with low LDH and protein in the pleural fluid cytology collected was negative for malignancy. Note that, at that time, the patient had a total of 1.2 L of pleural fluid aspirated from the right lung without any complications. He is also known to have history of Hodgkin's lymphoma with a previous splenectomy followed by chemoradiation therapy this was performed in 1976 in 1977. He is known to have prostate cancer, hypothyroidism, hyperlipide alvino. During this current admission, the patient was seen and evaluated by general surgery. Regarding his progressive abdominal distention and nausea and emesis. The patient during this current admission underwent a small bowel follow-through and the patient was found to have findings suspicious for partial versus complete obstruction. Based on that, the patient is currently being considered for surgical exploration. He was supposed to go for surgery today and there was concern about his respiratory status as the patient had developed also bilateral pleural effusions. Based on that, pulmonary consultation was requested. He currently has an NG tube for decompression. He also has TPN for nutritional support. He is not receiving any form of antibiotics. He remains on oral Diflucan only. His white cell count is at 12 with a hemoglobin 12.5 and a platelet count of 369. BUN is at 20 with a creatinine 0.7. Sodium is at 139. Most recent echocardiogram that was done today showed impairment of LV function with an ejection fraction of 25 to 30%. There was also inferior wall hypoki nesis and moderate MR and moderate aortic regurgitation and moderate to severe tricuspid regurgitation. The chest x-ray from today showing bilateral pleural effusion slightly worse on the left. The patient has an NG tube in place. On today's evaluation of 2023, the patient is being seen for a follow-up he is calm and comfortable on room air oxygen. I performed a left-sided thoracentesis on this patient yesterday with a total of 1.2 L of fluid drained. The right side will be done today as the patient is being prepped and optimized for surgery. He is still NPO. He has an NG tube in place. Output is still active. Abdomen is distended. It is not tender. Postprocedure chest x-ray s howed no evidence of any pneumothorax. There is residual right-sided pleural effusion. BUN is at 21 with a creatinine of 0.7. Sodium level is at 136 and the patient remains on TPN for nutritional support. No other significant events overnight. 08/27/2023, the patient is being seen in follow-up. The patient was taken to the operating room and the patient underwent expiratory laparotomy and extensive lysis of adhesions was done. Decompression of the bowel was done with closure and this involves a decompression colotomy with closure and this involved the transverse colon. Peritoneal lavage was done with a total of 3 L. The incision was closed and a wound VAC was applied. Postop, the patient was kept intubated on mechanical ventilator and he was transferred to the intensive care unit. He was having some difficulties with hypotension preoperatively and he did have short runs of atrial fibrillation. His current rhythm is sinus. He is currently on propofol running at 25 mcg/kg/min. The patient is hemodynamically hypotensive and he is on norepinephrine at 0.08 mcg/kg/min. He was given a total of 1.5 L of fluid in the operating room. Another 1 L bolus will be given to him right now. He is maintenance fluid to be increased up to 150 cc an hour. He is currently on assist-control of 14, tidal volume of 400, FiO2 is 100% with a PEEP of 5 and the patient's pH was at 7.4 with a pCO2 of 47 and pO2 of more than 100. FiO2 was weaned down to 40%.. Chest x-ray showed NG tube being in good location. There is trace pleural effusion and there is a triple-lumen catheter in the right IJ which seems to be in good location for now. The blood work from this morning showed a BUN of 31 with a creatinine of 0.7 and his sodium level was at 134 and the potassium level was at 3.4. He is well sedated and synchronous with mechanical ventilator. He remains on TPN for nutritional support. No other significant issues for now. The Lopressor disaster will be placed on hold for now. Will also hold on his Lasix. Patient was reevaluated today on 08/28/2023, patient remains in the ICU, intubated and mechanically ventilated. Patient is status post expiratory laparotomy and extensive lysis of adhesions was done. Postoperative day #1. Remains intubated and mechanically ventilated. Patient is on assist-control rate of 16 tidal volume 400 FiO2 40% and PEEP of 5. ABG showed a pO2 of 99 pCO2 42 pH of 7.32. Blood pressure is marginal in spite of maximal therapy with norepinephrine at 0.5 mcg/kg/min, he is also on vasopressin at 0.03 units/min, patient is receiving propofol at 35 mg/kg/min, IV fluid is running at 150 cc/h. Patient is also receiving TPN, and he has received albumin. Intermittently the patient was receiving Lasix which I placed on hold because of his marginal blood pressure. Antibiotics graf patient remains on Zosyn and Diflucan. Apparently the patient was found to have fecal peritonitis when he underwent exploratory laparotomy. WBC count today is 21.5 hemoglobin 11.9. ABG showed a pO2 of 99 pCO2 42 pH of 7.32 basic metabolic profile is normal renal profile is normal chest x-ray is showing evidence of small bilateral pleural effusions and I suspect mild interstitial edema echocardiogram on this admission showed LV dysfunction, patient may improve with dobutamine, and I will try to go on a trial of dobutamine at 2.5 mcg/kg/min Patient was reevaluated today on 11/16, remains in the ICU intubated and mechanically ventilated. Patient is quite unstable, he is hemodynamically doing poorly, requiring multiple pressors and inotropes. He is now on norepinephrine at 0.5 mcg/kg/min/maxed vasopressin at 0.04 units/min, max patient is on epinep hrine at 0.05 mcg/kg/min being titrated, he is also on propofol, dobutamine 5 mcg/kg/min patient is receiving TPN, and is also on Merrem. ABG this morning showed a pO2 of 79 pCO2 39 pH of 7.36, and this is on assist-control rate of 16 tidal volume 400 FiO2 40% and PEEP of 5. Chest x-ray continues to show evidence of pulmonary edema, patient will definitely benefit from diuresis, however his blood pressure seems to be an issue, may gently diurese today. Otherwise his pulmonary status may deteriorate and the patient may end up requiring higher FiO2 and higher PEEP patient has continued leukocytosis with WBC count of 35.9 hemoglobin 11 basic metabolic profile is normal renal profile is normal condition graf, patient is on TPN at 65 cc/h. Propofol is at 30 mcg/kg/min Objective - Vital Signs Vital signs: Vital Signs Temp 98.2 F 08/29/23 08:00 Pulse 115 H 08/29/23 11:00 Resp 23 08/29/23 11:00 BP 135/63 08/29/23 06:15 Pulse Ox 95 08/29/23 11:00 FiO2 40 08/29/23 12:00 Intake & Output 08/28/23 08/29/23 08/29/23 18:59 06:59 18:59 Intake Total 4819.268 2450.983 1272.887 Output Total 1545 815 130 Balance 3274.268 7741.647 8506.887 Weight 75.4 kg 81.6 kg Intake: IV 4098 7112 513 Albumin Human 5% 250 ml 500 In Empty Bag 1 bag @ 250 mls/hr IVPB ONCE ONE Rx#: [id number] Mvi, Adult No.4 with Vit 1170 780 195 K 10 ml Trace (Conc-1Ml/ Dose) 1 ml Sodium Chloride 4Meq/ml Vial 20 meq In Amino Acid 5%-D20w +Lytes*E* 1,000 ml @ 90 mls/hr IV .BY DURATION [facility] Rx#:[id number] NS 1350 1200 300 NS Pressure Pack 1078 72 18 Intake, IV Titration 721.268 398.983 759.887 Amount DOBUTamine DRIP 500 mg In 27.823 188.123 Dextrose/Water 1 250ml. bag @ 5 MCG/KG/MIN 11.31 mls/hr IV .Q22H7M [facility] Rx# :[id number] EPINEPHrine 4 mg In 200.288 Dextrose 5% in Water 250 ml @ 0.05 MCG/KG/MIN 14. 138 mls/hr IV .[id number] [facility] Rx#:[id number] Meropenem 1 gm In Sodium 100 Chloride 0.9% 100 ml @ 33 .3 mls/hr IVPB Q8H [facility] Rx #:[id number] Norepinephrine 32 mg In 39.351 164.939 239.161 Sodium Chloride 0.9% 218 ml @ 0.4 MCG/KG/MIN 14. 138 mls/hr IV .[id number] [facility] Rx#:[id number] Norepinephrine 4 mg In 254 Sodium Chloride 0.9% 250 ml @ 0.03 MCG/KG/MIN 7. 944 mls/hr IV .Q24H [facility] Rx#:[id number] Piperacillin-Tazobactam 3 100 .375 gm In Sodium Chloride 0.9% 100 ml @ 25 mls/hr IVPB Q8HR [facility] Rx# :[id number] Vasopressin 20 unit In 45.212 50.923 51 Sodium Chloride 0.9% 50 ml @ 0.04 UNITS/MIN 6.12 mls/hr IV .Q8H20M [facility] Rx# :[id number] propofoL 1,000 mg In 182.705 155.298 81.315 Empty Bag 1 bag @ 15 MCG/ KG/MIN 6.255 mls/hr IV . Q16H [facility] Rx#:[id number] Output: Gastric Drainage 150 Urine 1545 665 130 Other: Voiding Method Indwelling Catheter Indwelling Catheter Indwelling Catheter ABP, PAP, CO, CI - Last Documented Arterial Blood Pressure 99/48 - Exam GENERAL: Revealed 72-year-old white male looks frail, cachectic, chronically ill, intubated and mechanically ventilated Head: Atraumatic, normocephalic, endotracheal tube and orogastric tubes are intact HEENT: No sclera icterus. Extraocular movements grossly intact. Moist buccal mucosa. Head is atraumatic, normocephalic. Hears conversational speech. No nasal drainage. NECK: Supple without lymphadenopathy. CHEST: Diminished breath sounds and crackles at the bases no rhonchi no wheezes CARDIOVASCULAR: Normal S1-S2, no S3 gallop, 2/6 systolic murmur throughout the precordium ABDOMEN: Distended. Abdomen is firm, nontender. Surgical wound site is clean. Wound VAC noted. No bowel sounds. No direct tenderness or rebound tenderness or guarding. MUSCULOSKELETAL: No clubbing, trace of bipedal edema, no cyanosis. NEUROLOGIC: Could not assess patient is sedated and mechanically ventilated. PSYCH: Unable to obtain SKIN: No rashes - Labs CBC & Chem 7: 08/29/23 02:35 08/29/23 02:35 Labs: Abnormal Lab Results - Last 24 Hours (Table) 08/28/23 08/28/23 08/29/23 Range/Units 18:00 18:00 02:31 WBC 35.7 H (3.8-10.6) k/uL RBC 3.87 L (4.30-5.90) m/uL Hgb 11.2 L (13.0-17.5) gm/dL Hct 36.3 L (39.0-53.0) % MCHC 30.9 L (31.0-37.0) g/dL RDW 15.6 H (11.5-15.5) % Neutrophils # (Manual) (1.3-7.7) k/uL ABG pH 7.34 L (7.35-7.45) ABG pO2 (83-108) mmHg Sodium 136 L (137-145) mmol/L Chloride 109 H (98-107) mmol/L Carbon Dioxide 21 L (22-30) mmol/L BUN 30 H (9-20) mg/dL Glucose 137 H (74-99) mg/dL Calcium 7.3 L (8.4-10.2) mg/dL 08/29/23 08/29/23 08/29/23 Range/Units 02:35 02:35 06:10 WBC 35.9 H (3.8-10.6) k/uL RBC 3.75 L (4.30-5.90) m/uL Hgb 11.0 L (13.0-17.5) gm/dL Hct 35.5 L (39.0-53.0) % MCHC 30.9 L (31.0-37.0) g/dL RDW (11.5-15.5) % Neutrophils # (Manual) 33.30 H (1.3-7.7) k/uL ABG pH (7.35-7.45) ABG pO2 79 L (83-108) mmHg Sodium 135 L (137-145) mmol/L Chloride 109 H (98-107) mmol/L Carbon Dioxide (22-30) mmol/L BUN 31 H (9-20) mg/dL Glucose 149 H (74-99) mg/dL Calcium 7.1 L (8.4-10.2) mg/dL Microbiology - Last 24 Hours (Table) 08/27/23 13:00 Gram Stain - Preliminary Other - Other Wound Culture - Preliminary Gram Neg Bacilli 08/27/23 14:15 Gram Stain - Preliminary Sputum Assessment and Plan Assessment: Impression: Acute hypoxic respiratory failure secondary to abdominal sepsis and septic shock Complete small bowel obstruction requiring exploratory laparotomy lysis of adhesions colostomy and decompression postoperative day #2 Acute fecal peritonitis. Hypotension secondary to sepsis septic shock and cardiogenic also in nature Severe LV dysfunction with ejection fraction of 20% Mild to moderate aortic regurgitation and tricuspid regurgitation with pulmonary hypertension Acute systolic congestive heart failure Underlying coronary artery disease and previous CABG History of Hodgkin's lymphoma and previous splenectomy History of prostate cancer History of atrial fibrillation presently in sinus rhythm History of hypothyroidism Dyslipidemia Bilateral pleural effusions requiring thoracentesis, multiple times. Transudative in nature. Cardiogenic in nature. Secondary to acute systolic congestive heart failure Recommendation: Continue ventilatory support, no plans to wean today as the patient is not ready Continue hemodynamic support including norepinephrine, vasopressin, dobutamine, and epinephrine Gentle diuresis as it may lower his blood pressure Continue TPN.Nutritional support Continue GI and DVT prophylaxis Continue antibiotic patient is now on Merrem Intermittently gently diurese Continue to monitor the patient in the ICU Overall prognosis remains extremely poor and guarded Critical care time is over 30 Will continue to follow Time with Patient: Greater than 30
--- NOTE | 2023-08-29 13:04 | P.PN ---
Subjective Progress Note Date: 08/29/23 CHIEF COMPLAINT: SBO HISTORY OF PRESENT ILLNESS: Patient admitted to the hospital with small bowel obstruction. Currently ICU intubated and on mechanical ventilation. He is postop day #2 status post exploratory laparotomy with lysis of adhesions, decompressive colotomy with closure, transverse colon, peritoneal lavage. BP remains low and patient is maxed on pressors. Critical care service have also added dobutamine and epinephrine. afebrile. WBC 35.9 Hgb 11 PHYSICAL EXAM: VITAL SIGNS: Reviewed GENERAL: no acute distress. HEENT: No sclera icterus. Extraocular movements grossly intact. Moist buccal mucosa. Head is atraumatic, normocephalic. Hears conversational speech. No nasal drainag e. NECK: Supple without lymphadenopathy. CHEST: Non-labored respirations and equal bilateral excursions. CARDIOVASCULAR: Palpable 2+ radial pulses. ABDOMEN: Distended. Prevana wound vac intact MUSCULOSKELETAL: No clubbing or cyanosis. NEUROLOGIC: No focal or lateralizing signs. Cranial nerves II through XII grossly intact. PSYCH: Intubated and sedated ASSESSMENT: 1. Small bowel obstruction due to adhesions 2. Paroxysmal atrial fibrillation 3. History of Hodgkin's lymphoma status post splenectomy including chemoradiation 4. History of prostate cancer status postradiation 5. Bilateral pleural effusion 6. Unintentional weight loss 7. Ischemic cardiomyopathy 8. Moderate to severe protein malnutrition 9. 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 History of ischemic colitis 12. Fecal peritonitis PLAN: -Continue ICU management -Continue supportive care -CODE STATUS currently full code -Continue TPN for nutrition support -Continue IV fluids -Continue antibiotics -DVT prophylaxis Lovenox Physician Paster [employer]ining note has been reviewed by physician. Signing provider agrees with the documented findings, assessment, and plan of care. Objective - Vital Signs Vital signs: Vital Signs Temp 98.3 F 08/29/23 12:00 Pulse 120 H 08/29/23 12:00 Resp 28 H 08/29/23 12:00 BP 135/63 08/29/23 06:15 Pulse Ox 95 08/29/23 12:00 FiO2 40 08/29/23 12:00 Intake & Output 08/28/23 08/29/23 08/29/23 18:59 06:59 18:59 Intake Total 4819.268 2450.983 1484.887 Output Total 1545 815 205 Balance 3274.268 0809.168 3058.887 Weight 75.4 kg 81.6 kg Intake: IV 4098 2052 725 Albumin Human 5% 250 ml 500 In Empty Bag 1 bag @ 250 mls/hr IVPB ONCE ONE Rx#: [id number] Mvi, Adult No.4 with Vit 1170 780 195 K 10 ml Trace (Conc-1Ml/ Dose) 1 ml Sodium Chloride 4Meq/ml Vial 20 meq In Amino Acid 5%-D20w +Lytes*E* 1,000 ml @ 90 mls/hr IV .BY DURATION [facility] Rx#:[id number] NS 1350 1200 500 NS Pressure Pack 1078 72 30 Intake, IV Titration 721.268 398.983 759.887 Amount DOBUTamine DRIP 500 mg In 27.823 188.123 Dextrose/Water 1 250ml. bag @ 5 MCG/KG/MIN 11.31 mls/hr IV .Q22H7M [facility] Rx# :[id number] EPINEPHrine 4 mg In 200.288 Dextrose 5% in Water 250 ml @ 0.05 MCG/KG/MIN 14. 138 mls/hr IV .[id number] [facility] Rx#:[id number] Meropenem 1 gm In Sodium 100 Chloride 0.9% 100 ml @ 33 .3 mls/hr IVPB Q8H [facility] Rx #:[id number] Norepinephrine 32 mg In 39.351 164.939 239.161 Sodium Chloride 0.9% 218 ml @ 0.4 MCG/KG/MIN 14. 138 mls/hr IV .[id number] [facility] Rx#:[id number] Norepinephrine 4 mg In 254 Sodium Chloride 0.9% 250 ml @ 0.03 MCG/KG/MIN 7. 944 mls/hr IV .Q24H [facility] Rx#:[id number] Piperacillin-Tazobactam 3 100 .375 gm In Sodium Chloride 0.9% 100 ml @ 25 mls/hr IVPB Q8HR [facility] Rx# :[id number] Vasopressin 20 unit In 45.212 50.923 51 Sodium Chloride 0.9% 50 ml @ 0.04 UNITS/MIN 6.12 mls/hr IV .Q8H20M [facility] Rx# :[id number] propofoL 1,000 mg In 182.705 155.298 81.315 Empty Bag 1 bag @ 15 MCG/ KG/MIN 6.255 mls/hr IV . Q16H [facility] Rx#:[id number] Output: Gastric Drainage 150 Urine 1545 665 205 Other: Voiding Method Indwelling Catheter Indwelling Catheter Indwelling Catheter ABP, PAP, CO, CI - Last Documented Arterial Blood Pressure 112/53 - Labs CBC & Chem 7: 08/29/23 02:35 08/29/23 02:35 Labs: Abnormal Lab Results - Last 24 Hours (Table) 08/28/23 08/28/23 08/29/23 Range/Units 18:00 18:00 02:31 WBC 35.7 H (3.8-10.6) k/uL RBC 3.87 L (4.30-5.90) m/uL Hgb 11.2 L (13.0-17.5) gm/dL Hct 36.3 L (39.0-53.0) % MCHC 30.9 L (31.0-37.0) g/dL RDW 15.6 H (11.5-15.5) % Neutrophils # (Manual) (1.3-7.7) k/uL ABG pH 7.34 L (7.35-7.45) ABG pO2 (83-108) mmHg Sodium 136 L (137-145) mmol/L Chloride 109 H (98-107) mmol/L Carbon Dioxide 21 L (22-30) mmol/L BUN 30 H (9-20) mg/dL Glucose 137 H (74-99) mg/dL Calcium 7.3 L (8.4-10.2) mg/dL 08/29/23 08/29/23 08/29/23 Range/Units 02:35 02:35 06:10 WBC 35.9 H (3.8-10.6) k/uL RBC 3.75 L (4.30-5.90) m/uL Hgb 11.0 L (13.0-17.5) gm/dL Hct 35.5 L (39.0-53.0) % MCHC 30.9 L (31.0-37.0) g/dL RDW (11.5-15.5) % Neutrophils # (Manual) 33.30 H (1.3-7.7) k/uL ABG pH (7.35-7.45) ABG pO2 79 L (83-108) mmHg Sodium 135 L (137-145) mmol/L Chloride 109 H (98-107) mmol/L Carbon Dioxide (22-30) mmol/L BUN 31 H (9-20) mg/dL Glucose 149 H (74-99) mg/dL Calcium 7.1 L (8.4-10.2) mg/dL Microbiology - Last 24 Hours (Table) 08/27/23 14:15 Gram Stain - Preliminary Sputum Sputum Culture - Preliminary Gram Neg Bacilli 08/27/23 13:00 Gram Stain - Preliminary Other - Other Wound Culture - Preliminary Gram Neg Bacilli
--- NOTE | 2023-08-29 13:35 | P.PN ---
Subjective Progress Note Date: 08/29/23 Hospital course Patient is a 72-year-old male with a history of Hodgkin's lymphoma status post chemo radiation and splenectomy in the 1970s, A Fib, HLD, CAD with myocardial infarction and CABG, and prostate cancer who presented to the emergency department with complaints of nausea and vomiting. Patient was hospitalized here from 08/01/23 through 08/17/23 for ileus and possible pneumonia. He was treated conservatively. On arrival to the ER he was tachycardic with a pulse of 107. Laboratory in the ER consisted of CBC, coags, and CMP and was remarkable for sodium 135, lactic acid 2.3, and AST of 60. Abdominal x-ray was consistent with ileus. NG tube was placed. Arrangements were made for admission. He underwent CT AP which shows high density contrast into the rectum suggesting no complete obstruction, but could still be a partial obstruction along with anasarca of the soft tissues. He was treated with NG tube to suction. He was started on TPN. Cardiology consulted, intermediate risk, no absolute contraindication for surgery. Echo shows EF 25-30% with inferior wall hypokinesis, moderate MR/AR, large pleural effusion. Pulmonary consulted for management of pleural effusion. Underwent thoracentesis for right pleural effusion with Dr. Hanson, 1.2L fluid. He underwent exploratory laparotomy lysis of adhesions, decompressive colotomy with Dr. Andino on 08/26 and admitted to ICU while intubated. Today patient remains intubated and sedated and is on 3 pressors. 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 -unable to assess as patient is intubated and sedated Psych -unable to assess as patient is intubated and sedated Assessment and plan Septic versus cardiogenic shock Patient currently on 3 pressors Patient also on broad-spectrum antibiotics with meropenem Cardiology and pulmonology on board Small bowel obstruction status post lysis of additions and decompressive colotomy Surgery on board NG tube in place PICC line with TPN for nutrition Ventilatory dependent respiratory failure [employer] Clerk to manage the vent Metabolic acidosis Resolved Pleural effusion Status post right-sided thoracentesis on 08/24/2023 Acute on chronic systolic heart failure EF 30 to 35% Holding Lopressor and lisinopril Aldactone due to hypotension [employer] Clerk and cardiology to manage the diuretics Patient given one-time dose of IV Lasix 20 mg today Chronic conditions Atrial fibrillation Coronary artery disease with history of myocardial infarction status post CABG Hypothyroidism, Dyslipidemia -Stable DVT prophylaxis: Lovenox 40 mg daily Prognosis guarded Full code Objective - Vital Signs Vital signs: Vital Signs Temp 98.3 F 08/29/23 12:00 Pulse 120 H 08/29/23 12:00 Resp 28 H 08/29/23 12:00 BP 135/63 08/29/23 06:15 Pulse Ox 95 08/29/23 12:00 FiO2 40 08/29/23 12:00 Intake & Output 08/28/23 08/29/23 08/29/23 18:59 06:59 18:59 Intake Total 4819.268 2450.983 1484.887 Output Total 1545 815 205 Balance 3274.268 7116.879 3324.887 Weight 75.4 kg 81.6 kg Intake: IV 4098 2052 725 Albumin Human 5% 250 ml 500 In Empty Bag 1 bag @ 250 mls/hr IVPB ONCE ONE Rx#: [id number] Mvi, Adult No.4 with Vit 1170 780 195 K 10 ml Trace (Conc-1Ml/ Dose) 1 ml Sodium Chloride 4Meq/ml Vial 20 meq In Amino Acid 5%-D20w +Lytes*E* 1,000 ml @ 90 mls/hr IV .BY DURATION KYLE Rx#:[id number] NS 1350 1200 500 NS Pressure Pack 1078 72 30 Intake, IV Titration 721.268 398.983 759.887 Amount DOBUTamine DRIP 500 mg In 27.823 188.123 Dextrose/Water 1 250ml. bag @ 5 MCG/KG/MIN 11.31 mls/hr IV .Q22H7M KYLE Rx# :[id number] EPINEPHrine 4 mg In 200.288 Dextrose 5% in Water 250 ml @ 0.05 MCG/KG/MIN 14. 138 mls/hr IV .[id number] KYLE Rx#:[id number] Meropenem 1 gm In Sodium 100 Chloride 0.9% 100 ml @ 33 .3 mls/hr IVPB Q8H KYLE Rx #:[id number] Norepinephrine 32 mg In 39.351 164.939 239.161 Sodium Chloride 0.9% 218 ml @ 0.4 MCG/KG/MIN 14. 138 mls/hr IV .[id number] KYLE Rx#:[id number] Norepinephrine 4 mg In 254 Sodium Chloride 0.9% 250 ml @ 0.03 MCG/KG/MIN 7. 944 mls/hr IV .Q24H KYLE Rx#:[id number] Piperacillin-Tazobactam 3 100 .375 gm In Sodium Chloride 0.9% 100 ml @ 25 mls/hr IVPB Q8HR KYLE Rx# :[id number] Vasopressin 20 unit In 45.212 50.923 51 Sodium Chloride 0.9% 50 ml @ 0.04 UNITS/MIN 6.12 mls/hr IV .Q8H20M KYLE Rx# :[id number] propofoL 1,000 mg In 182.705 155.298 81.315 Empty Bag 1 bag @ 15 MCG/ KG/MIN 6.255 mls/hr IV . Q16H KYLE Rx#:[id number] Output: Gastric Drainage 150 Urine 1545 665 205 Other: Voiding Method Indwelling Catheter Indwelling Catheter Indwelling Catheter ABP, PAP, CO, CI - Last Documented Arterial Blood Pressure 112/53 - Labs CBC & Chem 7: 08/29/23 02:35 08/29/23 02:35 Labs: Abnormal Lab Results - Last 24 Hours (Table) 08/28/23 08/28/23 08/29/23 Range/Units 18:00 18:00 02:31 WBC 35.7 H (3.8-10.6) k/uL RBC 3.87 L (4.30-5.90) m/uL Hgb 11.2 L (13.0-17.5) gm/dL Hct 36.3 L (39.0-53.0) % MCHC 30.9 L (31.0-37.0) g/dL RDW 15.6 H (11.5-15.5) % Neutrophils # (Manual) (1.3-7.7) k/uL ABG pH 7.34 L (7.35-7.45) ABG pO2 (83-108) mmHg Sodium 136 L (137-145) mmol/L Chloride 109 H (98-107) mmol/L Carbon Dioxide 21 L (22-30) mmol/L BUN 30 H (9-20) mg/dL Glucose 137 H (74-99) mg/dL Calcium 7.3 L (8.4-10.2) mg/dL 08/29/23 08/29/23 08/29/23 Range/Units 02:35 02:35 06:10 WBC 35.9 H (3.8-10.6) k/uL RBC 3.75 L (4.30-5.90) m/uL Hgb 11.0 L (13.0-17.5) gm/dL Hct 35.5 L (39.0-53.0) % MCHC 30.9 L (31.0-37.0) g/dL RDW (11.5-15.5) % Neutrophils # (Manual) 33.30 H (1.3-7.7) k/uL ABG pH (7.35-7.45) ABG pO2 79 L (83-108) mmHg Sodium 135 L (137-145) mmol/L Chloride 109 H (98-107) mmol/L Carbon Dioxide (22-30) mmol/L BUN 31 H (9-20) mg/dL Glucose 149 H (74-99) mg/dL Calcium 7.1 L (8.4-10.2) mg/dL Microbiology - Last 24 Hours (Table) 08/27/23 14:15 Gram Stain - Preliminary Sputum Sputum Culture - Preliminary Gram Neg Bacilli 08/27/23 13:00 Gram Stain - Preliminary Other - Other Wound Culture - Preliminary Gram Neg Bacilli
[2023-08-29] MEDS: FUROSEMIDE 10 MG/ML 2 ML VIAL IV ONE (13:47)
--- NOTE | 2023-08-29 17:00 | P.PN ---
Subjective Progress Note Date: 08/29/23 CHF The patient is a pleasant 72-year-old gentleman with a past medical history significant for coronary artery disease and cardiomyopathy and congestive heart failure who was admitted to the hospital with small bowel obstruction. He developed heart failure. The echo showed severe cardiomyopathy with EF around 20%. August 26, 2023 The patient was seen and evaluated this morning. He has severe left upper extremity edema. I am going to start the patient on Lasix IV at the small dose 20 mg twice daily and continue monitoring the kidney function and electrolytes and also obtain a venous duplex study to rule out DVT. Meanwhile continue the current medical regimen. He cannot take any oral medication at this point. The physical examination is remarkable for severe left upper extremity edema. August 27, 2023 The patient was seen in the intensive care unit. He underwent exploratory laparotomy and lysis of adhesion earlier this morning. Currently he is intubated on mechanical ventilation. Hemodynamically he is unstable and requiring small dose of norepinephrine. He is not receiving any oral medication. He is maintaining normal sinus mechanism. From the cardiovascular standpoint of view, we will continue the current medical regimen and consider adding dobutamine giving that he does have severe cardiomyopathy with an ejection fraction of 20%. The chest x-ray and blood work were reviewed. The examination is remarkable for the patient being intubated on mechanical ventilation with diminished breathing sounds bilaterally and no edema was noted. 08/28/2023 Patient is on norepinephrine, vasopressin and dobutamine drip. He continues to be on ventilator support failing weaning trial today. 08/29/2023 Patient is on norepinephrine, vasopressin and dobutamine. Patient continues to be on ventilator support and failed weaning trial. The abdomen has a wound VAC in place. On exam Sinus rhythm S1-S2 audible, regular pulses, no significant murmurs, On mechanical ventilator support, diminished breath sounds bilaterally, no edema Abdominal guarding present Assessment Coronary artery disease Small bowel obstruction Status post abdominal surgery as described above Severe cardiomyopathy Bilateral pleural effusion Status post pleurocentesis Left upper extremity edema Multiple comorbid conditions Plan Continue the current medical regimen Continue supporting the blood pressure Continue dobutamine given the severe cardiomyopathy Continue monitor the kidney function and electrolytes and hemoglobin Continue monitor the urine output Considering patient's severe cardiomyopathy, s/p surgery, sepsis and poor clinical response to current medical therapy, Overall patient's prognosis is very poor. I have had discussion about the prognosis with the family who was present at bed side today. They understand the poor prognosis they would like to continue the full support for next 1 to 2 days, they will reevaluate the situation. Objective - Vital Signs Vital signs: Vital Signs Temp 98.2 F 08/29/23 16:00 Pulse 123 H 08/29/23 16:00 Resp 17 08/29/23 16:00 BP 135/63 08/29/23 06:15 Pulse Ox 95 08/29/23 16:00 FiO2 40 08/29/23 16:00 Intake & Output 08/28/23 08/29/23 08/29/23 18:59 06:59 18:59 Intake Total 4819.268 2450.983 1908.887 Output Total 1545 815 505 Balance 3274.268 9518.607 6349.887 Weight 75.4 kg 81.6 kg Intake: IV 4098 2052 1149 Albumin Human 5% 250 ml 500 In Empty Bag 1 bag @ 250 mls/hr IVPB ONCE ONE Rx#: [id number] Mvi, Adult No.4 with Vit 1170 780 195 K 10 ml Trace (Conc-1Ml/ Dose) 1 ml Sodium Chloride 4Meq/ml Vial 20 meq In Amino Acid 5%-D20w +Lytes*E* 1,000 ml @ 90 mls/hr IV .BY DURATION KYLE Rx#:[id number] NS 1350 1200 900 NS Pressure Pack 1078 72 54 Intake, IV Titration 721.268 398.983 759.887 Amount DOBUTamine DRIP 500 mg In 27.823 188.123 Dextrose/Water 1 250ml. bag @ 5 MCG/KG/MIN 11.31 mls/hr IV .Q22H7M KYLE Rx# :[id number] EPINEPHrine 4 mg In 200.288 Dextrose 5% in Water 250 ml @ 0.05 MCG/KG/MIN 14. 138 mls/hr IV .[id number] KYLE Rx#:[id number] Meropenem 1 gm In Sodium 100 Chloride 0.9% 100 ml @ 33 .3 mls/hr IVPB Q8H KYLE Rx #:[id number] Norepinephrine 32 mg In 39.351 164.939 239.161 Sodium Chloride 0.9% 218 ml @ 0.4 MCG/KG/MIN 14. 138 mls/hr IV .[id number] KYLE Rx#:[id number] Norepinephrine 4 mg In 254 Sodium Chloride 0.9% 250 ml @ 0.03 MCG/KG/MIN 7. 944 mls/hr IV .Q24H KYLE Rx#:[id number] Piperacillin-Tazobactam 3 100 .375 gm In Sodium Chloride 0.9% 100 ml @ 25 mls/hr IVPB Q8HR KYLE Rx# :[id number] Vasopressin 20 unit In 45.212 50.923 51 Sodium Chloride 0.9% 50 ml @ 0.04 UNITS/MIN 6.12 mls/hr IV .Q8H20M KYLE Rx# :[id number] propofoL 1,000 mg In 182.705 155.298 81.315 Empty Bag 1 bag @ 15 MCG/ KG/MIN 6.255 mls/hr IV . Q16H KYLE Rx#:[id number] Output: Gastric Drainage 150 Urine 1545 665 505 Other: Voiding Method Indwelling Catheter Indwelling Catheter Indwelling Catheter ABP, PAP, CO, CI - Last Documented Arterial Blood Pressure 86/46 - Labs CBC & Chem 7: 08/29/23 02:35 08/29/23 02:35 Labs: Abnormal Lab Results - Last 24 Hours (Table) 08/28/23 08/28/23 08/29/23 Range/Units 18:00 18:00 02:31 WBC 35.7 H (3.8-10.6) k/uL RBC 3.87 L (4.30-5.90) m/uL Hgb 11.2 L (13.0-17.5) gm/dL Hct 36.3 L (39.0-53.0) % MCHC 30.9 L (31.0-37.0) g/dL RDW 15.6 H (11.5-15.5) % Neutrophils # (Manual) (1.3-7.7) k/uL ABG pH 7.34 L (7.35-7.45) ABG pO2 (83-108) mmHg Sodium 136 L (137-145) mmol/L Chloride 109 H (98-107) mmol/L Carbon Dioxide 21 L (22-30) mmol/L BUN 30 H (9-20) mg/dL Glucose 137 H (74-99) mg/dL Calcium 7.3 L (8.4-10.2) mg/dL 08/29/23 08/29/23 08/29/23 Range/Units 02:35 02:35 06:10 WBC 35.9 H (3.8-10.6) k/uL RBC 3.75 L (4.30-5.90) m/uL Hgb 11.0 L (13.0-17.5) gm/dL Hct 35.5 L (39.0-53.0) % MCHC 30.9 L (31.0-37.0) g/dL RDW (11.5-15.5) % Neutrophils # (Manual) 33.30 H (1.3-7.7) k/uL ABG pH (7.35-7.45) ABG pO2 79 L (83-108) mmHg Sodium 135 L (137-145) mmol/L Chloride 109 H (98-107) mmol/L Carbon Dioxide (22-30) mmol/L BUN 31 H (9-20) mg/dL Glucose 149 H (74-99) mg/dL Calcium 7.1 L (8.4-10.2) mg/dL Microbiology - Last 24 Hours (Table) 08/27/23 14:15 Gram Stain - Preliminary Sputum Sputum Culture - Preliminary Gram Neg Bacilli 08/27/23 13:00 Gram Stain - Preliminary Other - Other Wound Culture - Preliminary Gram Neg Bacilli
[2023-08-29] MEDS: [UNRECOGNIZED DRUG - REMARK] IV SCH (22:43)
[2023-08-29 23:52] LABS: Glucose,Whole Blood 156 mg/dL (70-110)
[2023-08-30 04:32] LABS: Ionized Calcium 4.4 mg/dL (4.5-5.3)
[2023-08-30 04:40] LABS: Anisocytosis Slight; HCT 33.5 % (39.0-53.0); HGB 10.3 gm/dL (13.0-17.5); Hypochromasia Marked; MCH 28.9 pg (25.0-35.0); MCHC 30.6 g/dL (31.0-37.0); MCV 94.5 fL (80.0-100.0); Mean Platelet Volume 10.4; Platelet Count 274 k/uL (150-450); RBC 3.55 m/uL (4.30-5.90); RDW 16.2 % (11.5-15.5); WBC 34.1 k/uL (3.8-10.6)
[2023-08-30 04:44] LABS: African American GFR (CKD) >90 (>60 ml/min/1.73 sqM); Anion Gap 8 mmol/L; Blood Urea Nitrogen 36 mg/dL (9-20); Calcium 6.9 mg/dL (8.4-10.2); Carbon Dioxide 19 mmol/L (22-30); Chloride 108 mmol/L (98-107); Glucose 161 mg/dL (74-99); Magnesium 2.1 mg/dL (1.6-2.3); Non-African American GFR(CKD) 87 (>60 ml/min/1.73 sqM); Phosphorus 3.7 mg/dL (2.5-4.5); Potassium 4.2 mmol/L (3.5-5.1); Sodium 135 mmol/L (137-145)
[2023-08-30 06:04] LABS: ABG Base Excess -2.5 mmol/L; ABG HCO3 23 mmol/L (21-25); ABG Oxygen Saturation 97.6 % (94-97); ABG PCO2 44 mmHg (35-45); ABG PH 7.34 (7.35-7.45); ABG PO2 111 mmHg (83-108); ABG TCO2 25 mmol/L (19-24); Allen Test Performed? Yes
[2023-08-30 06:10] LABS: Band Neutrophils % 3 %; Lymphocytes # (M) 0.68 k/uL (1.0-4.8); Monocytes # (M) 1.02 k/uL (0-1.0); Neutrophils % (M) 92 %; Nucleated Red Blood Cells 0 /100 WBC (0-0); Total Cells Counted 100
[2023-08-30 06:15] LABS: Ovalocytes Present; RBC Fragments Present; Target Cells Present
[2023-08-30 06:16] LABS: Crenated RBC Present; Polychromasia Present
[2023-08-30] MEDS: ALBUMIN HUMAN 5% 500 ML in EMPTY BAG 1 BAG IVPB ONE (07:41)
[2023-08-30] MEDS: FUROSEMIDE 10 MG/ML 4 ML VIAL IV SCH (08:21)
[2023-08-30] MEDS: CALCIUM GLUCONATE IN NACL 1 GM in SALINE 1 100ML.BAG IVPB ONE (09:52)
--- NOTE | 2023-08-30 10:14 | XR ---
EXAMINATION TYPE: XR chest 1V portable DATE OF EXAM: 08/30/2023 Comparison: 08/29/2023 Clinical History: 72 year-old male tube placement Findings: Left anterior chest wall ICD generator with right ventricular lead. NG tube courses below the diaphra gm. ET tube tip at the level of the medial clavicular heads. Right IJ CVC tip at the cavoatrial junct ion. Right PICC tip not clearly seen, at least in the distal SVC. Worsening moderate bilateral pleura l effusions. Ongoing perihilar interstitial opacities. Impression: Worsening moderate bilateral pleural effusions with adjacent atelectasis and/or consolidation. Ongoin g interstitial pulmonary edema.
[2023-08-30 12:02] LABS: Glucose,Whole Blood 139 mg/dL (70-110)
--- NOTE | 2023-08-30 12:43 | P.PN ---
Subjective Progress Note Date: 08/30/23 CHF The patient is a pleasant 72-year-old gentleman with a past medical history significant for coronary artery disease and cardiomyopathy and congestive heart failure who was admitted to the hospital with small bowel obstruction. He developed heart failure. The echo showed severe cardiomyopathy with EF around 20%. August 26, 2023 The patient was seen and evaluated this morning. He has severe left upper extremity edema. I am going to start the patient on Lasix IV at the small dose 20 mg twice daily and continue monitoring the kidney function and electrolytes and also obtain a venous duplex study to rule out DVT. Meanwhile continue the current medical regimen. He cannot take any oral medication at this point. The physical examination is remarkable for severe left upper extremity edema. August 27, 2023 The patient was seen in the intensive care unit. He underwent exploratory laparotomy and lysis of adhesion earlier this morning. Currently he is intubated on mechanical ventilation. Hemodynamically he is unstable and requiring small dose of norepinephrine. He is not receiving any oral medication. He is maintaining normal sinus mechanism. From the cardiovascular standpoint of view, we will continue the current medical regimen and consider adding dobutamine giving that he does have severe cardiomyopathy with an ejection fraction of 20%. The chest x-ray and blood work were reviewed. The examination is remarkable for the patient being intubated on mechanical ventilation with diminished breathing sounds bilaterally and no edema was noted. 08/28/2023 Patient is on norepinephrine, vasopressin and dobutamine drip. He continues to be on ventilator support failing weaning trial today. 08/29/2023 Patient is on norepinephrine, vasopressin and dobutamine. Patient continues to be on ventilator support and failed weaning trial. The abdomen has a wound VAC in place. 08/30/23 BP 106/49, heart rate 112 bpm, sinus tachycardia, Hemoglobin 10, WBC 34, BUN 36, creatinine 0.8 Patient is still on norepinephrine, vasopressin and dobutamine. Patient contin ues to be on ventilator support. He failed weaning trial today as well. Abdominal wound VAC is in place. Very poor clinical improvement On exam Sinus rhythm S1-S2 audible, regular pulses, no significant murmurs, On mechanical ventilator support, diminished breath sounds bilaterally, no edema Abdominal guarding present Assessment Coronary artery disease Small bowel obstruction Status post abdominal surgery as described above Severe cardiomyopathy Bilateral pleural effusion Status post pleurocentesis Left upper extremity edema Multiple comorbid conditions Plan Continue the current medical regimen Continue supporting the blood pressure Continue dobutamine given the severe cardiomyopathy Continue monitor the kidney function and electrolytes and hemoglobin Continue monitor the urine output Considering patient's severe cardiomyopathy, s/p surgery, sepsis and poor clinical response to current medical therapy, Overall patient's prognosis is very poor. I have had discussion about the prognosis with the family who was present at bedside today. They understand the poor prognosis they would like to continue the full support for next 1 to 2 days, they will reevaluate the situation. Objective - Vital Signs Vital signs: Vital Signs Temp 100 F H 08/30/23 12:00 Pulse 112 H 08/30/23 12:00 Resp 25 H 08/30/23 12:00 BP 135/63 08/29/23 06:15 Pulse Ox 95 08/30/23 12:00 FiO2 40 08/30/23 12:00 Intake & Output 08/29/23 08/30/23 08/30/23 18:59 06:59 18:59 Intake Total 2323.652 2240.623 788.746 Output Total 796 864 3579 Balance 5479.964 6116.623 -426.254 Weight 84.9 kg Intake: IV 1361 1272 306 Mvi, Adult No.4 with Vit 195 K 10 ml Trace (Conc-1Ml/ Dose) 1 ml Sodium Chloride 4Meq/ml Vial 20 meq In Amino Acid 5%-D20w +Lytes*E* 1,000 ml @ 90 mls/hr IV .BY DURATION KYLE Rx#:[id number] NS 1100 1200 300 NS Pressure Pack 66 72 6 Intake, IV Titration 962.652 968.623 482.746 Amount Calcium Gluconate in NaCl 100 1 gm In Saline 1 100ml. bag @ 100 mls/hr IVPB ONCE ONE Rx#:[id number] DOBUTamine DRIP 500 mg In 188.123 Dextrose/Water 1 250ml. bag @ 5 MCG/KG/MIN 11.31 mls/hr IV .Q22H7M KYLE Rx# :[id number] EPINEPHrine 4 mg In 286.765 594.956 19.794 Dextrose 5% in Water 250 ml @ 0.05 MCG/KG/MIN 14. 138 mls/hr IV .[id number] KYLE Rx#:[id number] Norepinephrine 32 mg In 239.161 222.667 211.952 Sodium Chloride 0.9% 218 ml @ 0.4 MCG/KG/MIN 14. 138 mls/hr IV .[id number] KYLE Rx#:[id number] Vasopressin 20 unit In 100.776 51 51 Sodium Chloride 0.9% 50 ml @ 0.04 UNITS/MIN 6.12 mls/hr IV .Q8H20M KYLE Rx# :[id number] propofoL 1,000 mg In 147.827 100 100 Empty Bag 1 bag @ 15 MCG/ KG/MIN 6.255 mls/hr IV . Q16H KYLE Rx#:[id number] Output: Gastric Drainage 50 225 Urine 903 946 6135 Other: Voiding Method Indwelling Catheter Indwelling Catheter Indwelling Catheter ABP, PAP, CO, CI - Last Documented Arterial Blood Pressure 106/49 - Labs CBC & Chem 7: 08/30/23 04:15 08/30/23 04:15 Labs: Abnormal Lab Results - Last 24 Hours (Table) 08/29/23 08/30/23 08/30/23 Range/Units 23:51 04:15 04:15 WBC 34.1 H (3.8-10.6) k/uL RBC 3.55 L (4.30-5.90) m/uL Hgb 10.3 L (13.0-17.5) gm/dL Hct 33.5 L (39.0-53.0) % MCHC 30.6 L (31.0-37.0) g/dL RDW 16.2 H (11.5-15.5) % Neutrophils # (Manual) 32.30 H (1.3-7.7) k/uL Lymphocytes # (Manual) 0.68 L (1.0-4.8) k/uL Monocytes # (Manual) 1.02 H (0-1.0) k/uL ABG pH (7.35-7.45) ABG pO2 (83-108) mmHg ABG Total CO2 (19-24) mmol/L ABG O2 Saturation (94-97) % Sodium 135 L (137-145) mmol/L Chloride 108 H (98-107) mmol/L Carbon Dioxide 19 L (22-30) mmol/L BUN 36 H (9-20) mg/dL Glucose 161 H (74-99) mg/dL POC Glucose (mg/dL) 156 H (70-110) mg/dL Calcium 6.9 L (8.4-10.2) mg/dL Ionized Calcium Bird 4.4 L (4.5-5.3) mg/dL 08/30/23 08/30/23 Range/Units 06:00 12:01 WBC (3.8-10.6) k/uL RBC (4.30-5.90) m/uL Hgb (13.0-17.5) gm/dL Hct (39.0-53.0) % MCHC (31.0-37.0) g/dL RDW (11.5-15.5) % Neutrophils # (Manual) (1.3-7.7) k/uL Lymphocytes # (Manual) (1.0-4.8) k/uL Monocytes # (Manual) (0-1.0) k/uL ABG pH 7.34 L (7.35-7.45) ABG pO2 111 H (83-108) mmHg ABG Total CO2 25 H (19-24) mmol/L ABG O2 Saturation 97.6 H (94-97) % Sodium (137-145) mmol/L Chloride (98-107) mmol/L Carbon Dioxide (22-30) mmol/L BUN (9-20) mg/dL Glucose (74-99) mg/dL POC Glucose (mg/dL) 139 H (70-110) mg/dL Calcium (8.4-10.2) mg/dL Ionized Calcium Bird (4.5-5.3) mg/dL Microbiology - Last 24 Hours (Table) 08/27/23 14:15 Gram Stain - Final Sputum Sputum Culture - Final Klebsiella oxytoca 08/27/23 13:00 Gram Stain - Final Other - Other Wound Culture - Final Klebsiella oxytoca 08/28/23 09:12 Blood Culture - Preliminary Blood
--- NOTE | 2023-08-30 13:16 | P.PN ---
Subjective Progress Note Date: 08/30/23 Hospital course Patient is a 72-year-old male with a history of Hodgkin's lymphoma status post chemo radiation and splenectomy in the 1970s, A Fib, HLD, CAD with myocardial infarction and CABG, and prostate cancer who presented to the emergency department with complaints of nausea and vomiting. Patient was hospitalized here from 08/01/23 through 08/17/23 for ileus and possible pneumonia. He was treated conservatively. On arrival to the ER he was tachycardic with a pulse of 107. Laboratory in the ER consisted of CBC, coags, and CMP and was remarkable for sodium 135, lactic acid 2.3, and AST of 60. Abdominal x-ray was consistent with ileus. NG tube was placed. Arrangements were made for admission. He underwent CT AP which shows high density contrast into the rectum suggesting no complete obstruction, but could still be a partial obstruction along with anasarca of the soft tissues. He was treated with NG tube to suction. He was started on TPN. Cardiology consulted, intermediate risk, no absolute contraindication for surgery. Echo shows EF 25-30% with inferior wall hypokinesis, moderate MR/AR, large pleural effusion. Pulmonary consulted for management of pleural effusion. Underwent thoracentesis for right pleural effusion with Dr. Hanson, 1.2L fluid. He underwent exploratory laparotomy lysis of adhesions, decompressive colotomy with Dr. Andino on 08/26 and admitted to ICU while intubated. Patient seen today he remains on 3 pressors. Patient has been titrated off of epinephrine. I had a lengthy discussion with the brother at bedside. Please see my assessment and plan Physical exam General examination -patient intubated and sedated Heart - + S1S2 no murmurs Lungs -diminished breath sounds bilaterally Abdomen soft NT ND +ve BS Extremities - No edema [employer] -unable to assess as patient is intubated and sedated Psych -unable to assess as patient is intubated and sedated Assessment and plan Septic versus cardiogenic shock Patient currently on 3 pressors Patient also on broad-spectrum antibiotics with meropenem Cardiology and pulmonology on board Small bowel obstruction status post lysis of additions and decompressive colotomy Surgery on board NG tube in place PICC line with TPN for nutrition Ventilatory dependent respiratory failure [employer] to manage the vent Metabolic acidosis Resolved Pleural effusion Status post right-sided thoracentesis on 08/24/2023 Acute on chronic systolic heart failure EF 30 to 35% Holding Lopressor and lisinopril Aldactone due to hypotension [employer] Operator and cardiology to manage the diuretics Patient given one-time dose of IV Lasix 20 mg today Chronic conditions Atrial fibrillation Coronary artery disease with history of myocardial infarction status post CABG Hypothyroidism, Dyslipidemia -Stable DVT prophylaxis: Lovenox 40 mg daily Prognosis guarded DNR I had a lengthy discussion with the brother at bedside. Brother is a healthcare as well as a hospice nurse. Brother understands that his brother's prognosis is extremely poor. Brother does not want us to accelerate his care. I discussed with the nurse to continue to wean him off of pressors and if he becomes hypotensive not to increase the pressors. Nurse will keep the patient's brother informed if he decompensates. Objective - Vital Signs Vital signs: Vital Signs Temp 100 F H 08/30/23 12:00 Pulse 112 H 08/30/23 12:00 Resp 25 H 08/30/23 12:00 BP 135/63 08/29/23 06:15 Pulse Ox 95 08/30/23 12:00 FiO2 45 08/30/23 12:50 Intake & Output 08/29/23 08/30/23 08/30/23 18:59 06:59 18:59 Intake Total 2323.652 2240.623 788.746 Output Total 921 597 0602 Balance 1576.386 6874.623 -426.254 Weight 84.9 kg Intake: IV 1361 1272 306 Mvi, Adult No.4 with Vit 195 K 10 ml Trace (Conc-1Ml/ Dose) 1 ml Sodium Chloride 4Meq/ml Vial 20 meq In Amino Acid 5%-D20w +Lytes*E* 1,000 ml @ 90 mls/hr IV .BY DURATION [facility] Rx#:[id number] NS 1100 1200 300 NS Pressure Pack 66 72 6 Intake, IV Titration 962.652 968.623 482.746 Amount Calcium Gluconate in NaCl 100 1 gm In Saline 1 100ml. bag @ 100 mls/hr IVPB ONCE ONE Rx#:[id number] DOBUTamine DRIP 500 mg In 188.123 Dextrose/Water 1 250ml. bag @ 5 MCG/KG/MIN 11.31 mls/hr IV .Q22H7M [facility] Rx# :[id number] EPINEPHrine 4 mg In 286.765 594.956 19.794 Dextrose 5% in Water 250 ml @ 0.05 MCG/KG/MIN 14. 138 mls/hr IV .[id number] [facility] Rx#:[id number] Norepinephrine 32 mg In 239.161 222.667 211.952 Sodium Chloride 0.9% 218 ml @ 0.4 MCG/KG/MIN 14. 138 mls/hr IV .[id number] [facility] Rx#:[id number] Vasopressin 20 unit In 100.776 51 51 Sodium Chloride 0.9% 50 ml @ 0.04 UNITS/MIN 6.12 mls/hr IV .Q8H20M [facility] Rx# :[id number] propofoL 1,000 mg In 147.827 100 100 Empty Bag 1 bag @ 15 MCG/ KG/MIN 6.255 mls/hr IV . Q16H [facility] Rx#:[id number] Output: Gastric Drainage 50 225 Urine 299 413 8528 Other: Voiding Method Indwelling Catheter Indwelling Catheter Indwelling Catheter ABP, PAP, CO, CI - Last Documented Arterial Blood Pressure 106/49 - Labs CBC & Chem 7: 08/30/23 04:15 08/30/23 04:15 Labs: Abnormal Lab Results - Last 24 Hours (Table) 08/29/23 08/30/23 08/30/23 Range/Units 23:51 04:15 04:15 WBC 34.1 H (3.8-10.6) k/uL RBC 3.55 L (4.30-5.90) m/uL Hgb 10.3 L (13.0-17.5) gm/dL Hct 33.5 L (39.0-53.0) % MCHC 30.6 L (31.0-37.0) g/dL RDW 16.2 H (11.5-15.5) % Neutrophils # (Manual) 32.30 H (1.3-7.7) k/uL Lymphocytes # (Manual) 0.68 L (1.0-4.8) k/uL Monocytes # (Manual) 1.02 H (0-1.0) k/uL ABG pH (7.35-7.45) ABG pO2 (83-108) mmHg ABG Total CO2 (19-24) mmol/L ABG O2 Saturation (94-97) % Sodium 135 L (137-145) mmol/L Chloride 108 H (98-107) mmol/L Carbon Dioxide 19 L (22-30) mmol/L BUN 36 H (9-20) mg/dL Glucose 161 H (74-99) mg/dL POC Glucose (mg/dL) 156 H (70-110) mg/dL Calcium 6.9 L (8.4-10.2) mg/dL Ionized Calcium Bird 4.4 L (4.5-5.3) mg/dL 08/30/23 08/30/23 Range/Units 06:00 12:01 WBC (3.8-10.6) k/uL RBC (4.30-5.90) m/uL Hgb (13.0-17.5) gm/dL Hct (39.0-53.0) % MCHC (31.0-37.0) g/dL RDW (11.5-15.5) % Neutrophils # (Manual) (1.3-7.7) k/uL Lymphocytes # (Manual) (1.0-4.8) k/uL Monocytes # (Manual) (0-1.0) k/uL ABG pH 7.34 L (7.35-7.45) ABG pO2 111 H (83-108) mmHg ABG Total CO2 25 H (19-24) mmol/L ABG O2 Saturation 97.6 H (94-97) % Sodium (137-145) mmol/L Chloride (98-107) mmol/L Carbon Dioxide (22-30) mmol/L BUN (9-20) mg/dL Glucose (74-99) mg/dL POC Glucose (mg/dL) 139 H (70-110) mg/dL Calcium (8.4-10.2) mg/dL Ionized Calcium Bird (4.5-5.3) mg/dL Microbiology - Last 24 Hours (Table) 08/27/23 14:15 Gram Stain - Final Sputum Sputum Culture - Final Klebsiella oxytoca 08/27/23 13:00 Gram Stain - Final Other - Other Wound Culture - Final Klebsiella oxytoca 08/28/23 09:12 Blood Culture - Preliminary Blood
--- NOTE | 2023-08-30 13:26 | P.PN ---
Subjective Progress Note Date: 08/30/23 Principal diagnosis: Acute small bowel obstruction I was asked to evaluate this patient regarding bilateral pleural effusions. The patient was admitted on 08/20/2023 for complaints of nausea and emesis. The patient is known to me from a previous hospitalization between 08/01/2023 and 08/17/2023. At that time, the patient was quite ill and he was seen and evaluated in the intensive care unit for shock/hypotension which was thought to be septic in nature. At time, the patient also had ileus/small bowel obstruction and ischemic colitis and the patient was treated conservatively and following his discharge he was tolerating full liquid diet but not regular.. Septic shock was highly suspected and the patient is immunocompromised due to his previous splenectomy. The patient was treated and the patient was discharged to be readmitted after a short period of time. He is known to have severe cardiomyopathy with an ejection fraction of 30 to 35%. He has coronary artery disease with previous MD and previous coronary bypass surgery. He also has bilateral pleural effusion and we have performed a right-sided thoracentesis on this patient on 08/10/2023 and based on that pleural fluid analysis, the patient had a transudate with low LDH and protein in the pleural fluid cytology collected was negative for malignancy. Note that, at that time, the patient had a total of 1.2 L of pleural fluid aspirated from the right lung without any complications. He is also known to have history of Hodgkin's lymphoma with a previous splenectomy followed by chemoradiation therapy this was performed in 1976 in 1977. He is known to have prostate cancer, hypothyroidism, hyperlipide alvino. During this current admission, the patient was seen and evaluated by general surgery. Regarding his progressive abdominal distention and nausea and emesis. The patient during this current admission underwent a small bowel follow-through and the patient was found to have findings suspicious for partial versus complete obstruction. Based on that, the patient is currently being considered for surgical exploration. He was supposed to go for surgery today and there was concern about his respiratory status as the patient had developed also bilateral pleural effusions. Based on that, pulmonary consultation was requested. He currently has an NG tube for decompression. He also has TPN for nutritional support. He is not receiving any form of antibiotics. He remains on oral Diflucan only. His white cell count is at 12 with a hemoglobin 12.5 and a platelet count of 369. BUN is at 20 with a creatinine 0.7. Sodium is at 139. Most recent echocardiogram that was done today showed impairment of LV function with an ejection fraction of 25 to 30%. There was also inferior wall hypoki nesis and moderate MR and moderate aortic regurgitation and moderate to severe tricuspid regurgitation. The chest x-ray from today showing bilateral pleural effusion slightly worse on the left. The patient has an NG tube in place. On today's evaluation of 2023, the patient is being seen for a follow-up he is calm and comfortable on room air oxygen. I performed a left-sided thoracentesis on this patient yesterday with a total of 1.2 L of fluid drained. The right side will be done today as the patient is being prepped and optimized for surgery. He is still NPO. He has an NG tube in place. Output is still active. Abdomen is distended. It is not tender. Postprocedure chest x-ray s howed no evidence of any pneumothorax. There is residual right-sided pleural effusion. BUN is at 21 with a creatinine of 0.7. Sodium level is at 136 and the patient remains on TPN for nutritional support. No other significant events overnight. 08/27/2023, the patient is being seen in follow-up. The patient was taken to the operating room and the patient underwent expiratory laparotomy and extensive lysis of adhesions was done. Decompression of the bowel was done with closure and this involves a decompression colotomy with closure and this involved the transverse colon. Peritoneal lavage was done with a total of 3 L. The incision was closed and a wound VAC was applied. Postop, the patient was kept intubated on mechanical ventilator and he was transferred to the intensive care unit. He was having some difficulties with hypotension preoperatively and he did have short runs of atrial fibrillation. His current rhythm is sinus. He is currently on propofol running at 25 mcg/kg/min. The patient is hemodynamically hypotensive and he is on norepinephrine at 0.08 mcg/kg/min. He was given a total of 1.5 L of fluid in the operating room. Another 1 L bolus will be given to him right now. He is maintenance fluid to be increased up to 150 cc an hour. He is currently on assist-control of 14, tidal volume of 400, FiO2 is 100% with a PEEP of 5 and the patient's pH was at 7.4 with a pCO2 of 47 and pO2 of more than 100. FiO2 was weaned down to 40%.. Chest x-ray showed NG tube being in good location. There is trace pleural effusion and there is a triple-lumen catheter in the right IJ which seems to be in good location for now. The blood work from this morning showed a BUN of 31 with a creatinine of 0.7 and his sodium level was at 134 and the potassium level was at 3.4. He is well sedated and synchronous with mechanical ventilator. He remains on TPN for nutritional support. No other significant issues for now. The Lopressor disaster will be placed on hold for now. Will also hold on his Lasix. Patient was reevaluated today on 08/28/2023, patient remains in the ICU, intubated and mechanically ventilated. Patient is status post expiratory laparotomy and extensive lysis of adhesions was done. Postoperative day #1. Remains intubated and mechanically ventilated. Patient is on assist-control rate of 16 tidal volume 400 FiO2 40% and PEEP of 5. ABG showed a pO2 of 99 pCO2 42 pH of 7.32. Blood pressure is marginal in spite of maximal therapy with norepinephrine at 0.5 mcg/kg/min, he is also on vasopressin at 0.03 units/min, patient is receiving propofol at 35 mg/kg/min, IV fluid is running at 150 cc/h. Patient is also receiving TPN, and he has received albumin. Intermittently the patient was receiving Lasix which I placed on hold because of his marginal blood pressure. Antibiotics graf patient remains on Zosyn and Diflucan. Apparently the patient was found to have fecal peritonitis when he underwent exploratory laparotomy. WBC count today is 21.5 hemoglobin 11.9. ABG showed a pO2 of 99 pCO2 42 pH of 7.32 basic metabolic profile is normal renal profile is normal chest x-ray is showing evidence of small bilateral pleural effusions and I suspect mild interstitial edema echocardiogram on this admission showed LV dysfunction, patient may improve with dobutamine, and I will try to go on a trial of dobutamine at 2.5 mcg/kg/min Patient was reevaluated today on 11/16, remains in the ICU intubated and mechanically ventilated. Patient is quite unstable, he is hemodynamically doing poorly, requiring multiple pressors and inotropes. He is now on norepinephrine at 0.5 mcg/kg/min/maxed vasopressin at 0.04 units/min, max patient is on epinep hrine at 0.05 mcg/kg/min being titrated, he is also on propofol, dobutamine 5 mcg/kg/min patient is receiving TPN, and is also on Merrem. ABG this morning showed a pO2 of 79 pCO2 39 pH of 7.36, and this is on assist-control rate of 16 tidal volume 400 FiO2 40% and PEEP of 5. Chest x-ray continues to show evidence of pulmonary edema, patient will definitely benefit from diuresis, however his blood pressure seems to be an issue, may gently diurese today. Otherwise his pulmonary status may deteriorate and the patient may end up requiring higher FiO2 and higher PEEP patient has continued leukocytosis with WBC count of 35.9 hemoglobin 11 basic metabolic profile is normal renal profile is normal condition graf, patient is on TPN at 65 cc/h. Propofol is at 30 mcg/kg/min Patient was reevaluated today on 08/30/2023, remains in the ICU, intubated and mechanically ventilated. Patient is on assist-control rate of 16 tidal volume 400 FiO2 40% and PEEP of 5. Chest x-ray is showing worsening bilateral pleural effusions and pulmonary edema, hence Lasix was given today. Patient remains on pressors and inotropes including norepinephrine, vasopressin, dobutamine, he is off epinephrine. Overall the patient is about the same, he is sedated, on propofol and is also on fentanyl. There is pulmonary edema, Lasix was given, and this will be given 40 mg IV push twice daily for biotics graf patient remains on Merrem, nutrition graf patient is receiving TPN ABG showed a pO2 of 111 pCO2 44 pH of 7.34. Basic metabolic profile is normal, CBC is showing significant leukocytosis with WBC count of 34.1 hemoglobin is 10.3 renal profile is normal with BUN of 36 creatinine 0.8 overall the patient is not doing well, remains on propofol and he is not ready for any form of weaning trials at this point Objective - Vital Signs Vital signs: Vital Signs Temp 100 F H 08/30/23 12:00 Pulse 112 H 08/30/23 12:00 Resp 25 H 08/30/23 12:00 BP 135/63 08/29/23 06:15 Pulse Ox 95 08/30/23 12:00 FiO2 45 08/30/23 12:50 Intake & Output 08/29/23 08/30/23 08/30/23 18:59 06:59 18:59 Intake Total 2323.652 2240.623 788.746 Output Total 738 311 8966 Balance 4942.390 2825.623 -426.254 Weight 84.9 kg Intake: IV 1361 1272 306 Mvi, Adult No.4 with Vit 195 K 10 ml Trace (Conc-1Ml/ Dose) 1 ml Sodium Chloride 4Meq/ml Vial 20 meq In Amino Acid 5%-D20w +Lytes*E* 1,000 ml @ 90 mls/hr IV .BY DURATION [facility] Rx#:[id number] NS 1100 1200 300 NS Pressure Pack 66 72 6 Intake, IV Titration 962.652 968.623 482.746 Amount Calcium Gluconate in NaCl 100 1 gm In Saline 1 100ml. bag @ 100 mls/hr IVPB ONCE ONE Rx#:[id number] DOBUTamine DRIP 500 mg In 188.123 Dextrose/Water 1 250ml. bag @ 5 MCG/KG/MIN 11.31 mls/hr IV .Q22H7M [facility] Rx# :[id number] EPINEPHrine 4 mg In 286.765 594.956 19.794 Dextrose 5% in Water 250 ml @ 0.05 MCG/KG/MIN 14. 138 mls/hr IV .[id number] [facility] Rx#:[id number] Norepinephrine 32 mg In 239.161 222.667 211.952 Sodium Chloride 0.9% 218 ml @ 0.4 MCG/KG/MIN 14. 138 mls/hr IV .[id number] [facility] Rx#:[id number] Vasopressin 20 unit In 100.776 51 51 Sodium Chloride 0.9% 50 ml @ 0.04 UNITS/MIN 6.12 mls/hr IV .Q8H20M [facility] Rx# :[id number] propofoL 1,000 mg In 147.827 100 100 Empty Bag 1 bag @ 15 MCG/ KG/MIN 6.255 mls/hr IV . Q16H [facility] Rx#:[id number] Output: Gastric Drainage 50 225 Urine 745 667 9928 Other: Voiding Method Indwelling Catheter Indwelling Catheter Indwelling Catheter ABP, PAP, CO, CI - Last Documented Arterial Blood Pressure 106/49 - Exam GENERAL: Revealed 72-year-old white male looks frail, cachectic, chronically ill, intubated and mechanically ventilated Head: Atraumatic, normocephalic, endotracheal tube and orogastric tubes are intact HEENT: No sclera icterus. Extraocular movements grossly intact. Moist buccal mucosa. Head is atraumatic, normocephalic. Hears conversational speech. No nasal drainage. NECK: Supple without lymphadenopathy. CHEST: Diminished breath sounds and crackles at the bases no rhonchi no wheezes CARDIOVASCULAR: Normal S1-S2, no S3 gallop, 2/6 systolic murmur throughout the precordium ABDOMEN: Distended. Abdomen is firm, nontender. Surgical wound site is clean. Wound VAC noted. No bowel sounds. No direct tenderness or rebound tenderness or guarding. MUSCULOSKELETAL: No clubbing, trace of bipedal edema, no cyanosis. NEUROLOGIC: Could not assess patient is sedated and mechanically ventilated. PSYCH: Unable to obtain SKIN: No rashes - Labs CBC & Chem 7: 08/30/23 04:15 08/30/23 04:15 Labs: Abnormal Lab Results - Last 24 Hours (Table) 08/29/23 08/30/23 08/30/23 Range/Units 23:51 04:15 04:15 WBC 34.1 H (3.8-10.6) k/uL RBC 3.55 L (4.30-5.90) m/uL Hgb 10.3 L (13.0-17.5) gm/dL Hct 33.5 L (39.0-53.0) % MCHC 30.6 L (31.0-37.0) g/dL RDW 16.2 H (11.5-15.5) % Neutrophils # (Manual) 32.30 H (1.3-7.7) k/uL Lymphocytes # (Manual) 0.68 L (1.0-4.8) k/uL Monocytes # (Manual) 1.02 H (0-1.0) k/uL ABG pH (7.35-7.45) ABG pO2 (83-108) mmHg ABG Total CO2 (19-24) mmol/L ABG O2 Saturation (94-97) % Sodium 135 L (137-145) mmol/L Chloride 108 H (98-107) mmol/L Carbon Dioxide 19 L (22-30) mmol/L BUN 36 H (9-20) mg/dL Glucose 161 H (74-99) mg/dL POC Glucose (mg/dL) 156 H (70-110) mg/dL Calcium 6.9 L (8.4-10.2) mg/dL Ionized Calcium Bird 4.4 L (4.5-5.3) mg/dL 08/30/23 08/30/23 Range/Units 06:00 12:01 WBC (3.8-10.6) k/uL RBC (4.30-5.90) m/uL Hgb (13.0-17.5) gm/dL Hct (39.0-53.0) % MCHC (31.0-37.0) g/dL RDW (11.5-15.5) % Neutrophils # (Manual) (1.3-7.7) k/uL Lymphocytes # (Manual) (1.0-4.8) k/uL Monocytes # (Manual) (0-1.0) k/uL ABG pH 7.34 L (7.35-7.45) ABG pO2 111 H (83-108) mmHg ABG Total CO2 25 H (19-24) mmol/L ABG O2 Saturation 97.6 H (94-97) % Sodium (137-145) mmol/L Chloride (98-107) mmol/L Carbon Dioxide (22-30) mmol/L BUN (9-20) mg/dL Glucose (74-99) mg/dL POC Glucose (mg/dL) 139 H (70-110) mg/dL Calcium (8.4-10.2) mg/dL Ionized Calcium Bird (4.5-5.3) mg/dL Microbiology - Last 24 Hours (Table) 08/27/23 14:15 Gram Stain - Final Sputum Sputum Culture - Final Klebsiella oxytoca 08/27/23 13:00 Gram Stain - Final Other - Other Wound Culture - Final Klebsiella oxytoca 08/28/23 09:12 Blood Culture - Preliminary Blood Assessment and Plan Assessment: Impression: Acute hypoxic respiratory failure secondary to abdominal sepsis and septic shock Complete small bowel obstruction requiring exploratory laparotomy lysis of adhesions colostomy and decompression postoperative day 3 Acute fecal peritonitis. Hypotension secondary to sepsis septic shock and cardiogenic also in nature Severe LV dysfunction with ejection fraction of 20% Mild to moderate aortic regurgitation and tricuspid regurgitation with pulmonary hypertension Acute systolic congestive heart failure Underlying coronary artery disease and previous CABG History of Hodgkin's lymphoma and previous splenectomy History of prostate cancer History of atrial fibrillation presently in sinus rhythm History of hypothyroidism Dyslipidemia Bilateral pleural effusions requiring thoracentesis, multiple times. Transudative in nature. Cardiogenic in nature. Secondary to acute systolic co ngestive heart failure Recommendation: Continue ventilatory support, plans to wean patient is not ready for weaning trials Continue hemodynamic support including norepinephrine, vasopressin, dobutamine, off epinephrine, and his norepinephrine has been titrated down a bit lasix 40 mg IV push twice daily will be given for his bilateral pleural effusions, no plans to do thoracentesis Continue TPN.Nutritional support Continue GI and DVT prophylaxis Continue antibiotic patient is now on Merrem Continue to monitor the patient in the ICU Overall prognosis remains extremely poor and guarded Critical care time is over 30 Will continue to follow Time with Patient: Greater than 30
--- NOTE | 2023-08-30 14:29 | XR ---
EXAMINATION TYPE: XR chest 1V portable DATE OF EXAM: 08/30/2023 Comparison: 08/30/2023 Clinical History: 72-year-old male confirm NGT placement Findings: NG tube satisfactory. ET tube tip at the level of the medial clavicular heads. Median sternotomy wire s with post-CABG clips. Left anterior chest wall ICD generator with right ventricular lead. There are moderate undergoing bilateral pleural effusions extending up to the mid lung levels, partially layer ing giving semiupright position. Interstitial edema and perihilar congestion persists. Left CVC tip p rimary in the upper right atrium. Right PICC tip not seen beyond the lower SVC. Impression: 1. Satisfactory NG tube. 2. Ongoing moderate bilateral pleural effusions with adjacent atelectasis and or consolidation. 3. Background interstitial pulmonary edema is similar.
--- NOTE | 2023-08-30 15:17 | P.PN ---
Subjective Progress Note Date: 08/30/23 CHIEF COMPLAINT: SBO HISTORY OF PRESENT ILLNESS: Patient admitted to the hospital with small bowel obstruction. Currently ICU intubated and on mechanical ventilation. He is postop day #3 status post exploratory laparotomy with lysis of adhesions, decompressive colotomy with closure, transverse colon, peritoneal lavage. Patient is off of the epinephrine. They have come down a little on the Levophed. Low-grade temp of 100 this afternoon. Mildly tachycardic. WBC remains elevated at 34 patient is currently receiving IV Lasix. PHYSICAL EXAM: VITAL SIGNS: Reviewed GENERAL: no acute distress. HEENT: No sclera icterus. Extraocular movements grossly intact. Moist buccal mucosa. Head is atraumatic, normocephalic. Hears conversational speech. No nasal drainage. NECK: Supple without lymphadenopathy. CHEST: Non-labored respirations and equal bilateral excursions. CARDIOVASCULAR: Palpable 2+ radial pulses. ABDOMEN: Distended. Prevana wound vac intact MUSCULOSKELETAL: No clubbing or cyanosis. NEUROLOGIC: No focal or lateralizing signs. Cranial nerves II through XII grossly intact. PSYCH: Intubated and sedated ASSESSMENT: 1. Small bowel obstruction due to adhesions 2. Paroxysmal atrial fibrillation 3. History of Hodgkin's lymphoma status post splenectomy including chemor adiation 4. History of prostate cancer status postradiation 5. Bilateral pleural effusion 6. Unintentional weight loss 7. Ischemic cardiomyopathy 8. Moderate to severe protein malnutrition 9. 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 History of ischemic colitis 12. Fecal peritonitis 13. Expected ileus due to cardiogenic shock and septic shock PLAN: -Continue ICU management -Continue supportive care -CODE STATUS currently full code -Continue TPN for nutrition support -Continue antibiotics -DVT prophylaxis Lovenox Physician Banquet Supervisor note has been reviewed by physician. Signing provider agrees with the documented findings, assessment, and plan of care. Objective - Vital Signs Vital signs: Vital Signs Temp 100 F H 08/30/23 12:00 Pulse 114 H 08/30/23 13:00 Resp 25 H 08/30/23 13:00 BP 135/63 08/29/23 06:15 Pulse Ox 95 08/30/23 13:00 FiO2 45 08/30/23 12:50 Intake & Output 08/29/23 08/30/23 08/30/23 18:59 06:59 18:59 Intake Total 2323.652 2240.623 1125.809 Output Total 620 712 1229 Balance 2430.132 4995.623 -289.191 Weight 84.9 kg 85 kg Intake: IV 1361 1272 356 Mvi, Adult No.4 with Vit 195 K 10 ml Trace (Conc-1Ml/ Dose) 1 ml Sodium Chloride 4Meq/ml Vial 20 meq In Amino Acid 5%-D20w +Lytes*E* 1,000 ml @ 90 mls/hr IV .BY DURATION [facility] Rx#:[id number] NS 1100 1200 350 NS Pressure Pack 66 72 6 Intake, IV Titration 962.652 968.623 769.809 Amount Calcium Gluconate in NaCl 100 1 gm In Saline 1 100ml. bag @ 100 mls/hr IVPB ONCE ONE Rx#:[id number] DOBUTamine DRIP 500 mg In 188.123 250 Dextrose/Water 1 250ml. bag @ 5 MCG/KG/MIN 11.31 mls/hr IV .Q22H7M [facility] Rx# :[id number] EPINEPHrine 4 mg In 286.765 594.956 19.794 Dextrose 5% in Water 250 ml @ 0.05 MCG/KG/MIN 14. 138 mls/hr IV .[id number] [facility] Rx#:[id number] Norepinephrine 32 mg In 239.161 222.667 249.015 Sodium Chloride 0.9% 218 ml @ 0.4 MCG/KG/MIN 14. 138 mls/hr IV .[id number] [facility] Rx#:[id number] Vasopressin 20 unit In 100.776 51 51 Sodium Chloride 0.9% 50 ml @ 0.04 UNITS/MIN 6.12 mls/hr IV .Q8H20M [facility] Rx# :[id number] propofoL 1,000 mg In 147.827 100 100 Empty Bag 1 bag @ 15 MCG/ KG/MIN 6.255 mls/hr IV . Q16H [facility] Rx#:[id number] Output: Gastric Drainage 50 225 Urine 934 683 8528 Other: Voiding Method Indwelling Catheter Indwelling Catheter Indwelling Catheter ABP, PAP, CO, CI - Last Documented Arterial Blood Pressure 106/47 - Labs CBC & Chem 7: 08/30/23 04:15 08/30/23 04:15 Labs: Abnormal Lab Results - Last 24 Hours (Table) 08/29/23 08/30/23 08/30/23 Range/Units 23:51 04:15 04:15 WBC 34.1 H (3.8-10.6) k/uL RBC 3.55 L (4.30-5.90) m/uL Hgb 10.3 L (13.0-17.5) gm/dL Hct 33.5 L (39.0-53.0) % MCHC 30.6 L (31.0-37.0) g/dL RDW 16.2 H (11.5-15.5) % Neutrophils # (Manual) 32.30 H (1.3-7.7) k/uL Lymphocytes # (Manual) 0.68 L (1.0-4.8) k/uL Monocytes # (Manual) 1.02 H (0-1.0) k/uL ABG pH (7.35-7.45) ABG pO2 (83-108) mmHg ABG Total CO2 (19-24) mmol/L ABG O2 Saturation (94-97) % Sodium 135 L (137-145) mmol/L Chloride 108 H (98-107) mmol/L Carbon Dioxide 19 L (22-30) mmol/L BUN 36 H (9-20) mg/dL Glucose 161 H (74-99) mg/dL POC Glucose (mg/dL) 156 H (70-110) mg/dL Calcium 6.9 L (8.4-10.2) mg/dL Ionized Calcium Bird 4.4 L (4.5-5.3) mg/dL 08/30/23 08/30/23 Range/Units 06:00 12:01 WBC (3.8-10.6) k/uL RBC (4.30-5.90) m/uL Hgb (13.0-17.5) gm/dL Hct (39.0-53.0) % MCHC (31.0-37.0) g/dL RDW (11.5-15.5) % Neutrophils # (Manual) (1.3-7.7) k/uL Lymphocytes # (Manual) (1.0-4.8) k/uL Monocytes # (Manual) (0-1.0) k/uL ABG pH 7.34 L (7.35-7.45) ABG pO2 111 H (83-108) mmHg ABG Total CO2 25 H (19-24) mmol/L ABG O2 Saturation 97.6 H (94-97) % Sodium (137-145) mmol/L Chloride (98-107) mmol/L Carbon Dioxide (22-30) mmol/L BUN (9-20) mg/dL Glucose (74-99) mg/dL POC Glucose (mg/dL) 139 H (70-110) mg/dL Calcium (8.4-10.2) mg/dL Ionized Calcium Bird (4.5-5.3) mg/dL Microbiology - Last 24 Hours (Table) 08/27/23 14:15 Gram Stain - Final Sputum Sputum Culture - Final Klebsiella oxytoca 08/27/23 13:00 Gram Stain - Final Other - Other Wound Culture - Final Klebsiella oxytoca 08/28/23 09:12 Blood Culture - Preliminary Blood
[2023-08-30 17:56] LABS: Glucose,Whole Blood 130 mg/dL (70-110)
[2023-08-30] MEDS: FUROSEMIDE 10 MG/ML 4 ML VIAL IV ONE (20:35)
[2023-08-31 00:58] LABS: Glucose,Whole Blood 138 mg/dL (70-110)
[2023-08-31 04:58] LABS: HGB 9.9 gm/dL (13.0-17.5); Hypochromasia Moderate; MCH 28.7 pg (25.0-35.0); MCHC 30.9 g/dL (31.0-37.0); Mean Platelet Volume 9.7; Platelet Count 264 k/uL (150-450); RBC 3.45 m/uL (4.30-5.90); RDW 15.9 % (11.5-15.5); WBC 28.7 k/uL (3.8-10.6)
[2023-08-31 05:10] LABS: African American GFR (CKD) >90 (>60 ml/min/1.73 sqM); Anion Gap 2 mmol/L; Blood Urea Nitrogen 41 mg/dL (9-20); Calcium 7.3 mg/dL (8.4-10.2); Carbon Dioxide 25 mmol/L (22-30); Chloride 107 mmol/L (98-107); Glucose 128 mg/dL (74-99); Magnesium 2.1 mg/dL (1.6-2.3); Non-African American GFR(CKD) 88 (>60 ml/min/1.73 sqM); Phosphorus 4.2 mg/dL (2.5-4.5); Potassium 4.3 mmol/L (3.5-5.1); Sodium 134 mmol/L (137-145)
[2023-08-31 05:33] LABS: ABG Base Excess 1.9 mmol/L; ABG HCO3 28 mmol/L (21-25); ABG PCO2 54 mmHg (35-45); ABG PH 7.32 (7.35-7.45); ABG PO2 111 mmHg (83-108); ABG TCO2 30 mmol/L (19-24); Allen Test Performed? Yes
[2023-08-31 05:55] LABS: Band Neutrophils % 2 %; Lymphocytes # (M) 1.44 k/uL (1.0-4.8); Monocytes # (M) 0.86 k/uL (0-1.0); Neutrophils % (M) 91 %; Nucleated Red Blood Cells 0 /100 WBC (0-0); Total Cells Counted 200
[2023-08-31 05:56] LABS: Crenated RBC Present
[2023-08-31 05:57] LABS: Ovalocytes Present; RBC Fragments Present; Target Cells Present
[2023-08-31 06:02] LABS: Glucose,Whole Blood 146 mg/dL (70-110)
--- NOTE | 2023-08-31 06:11 | P.PN ---
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 Patient's brother Pieter notified of new diagnosis and potential care plan including possible hospice.
--- NOTE | 2023-08-31 08:16 | P.PN ---
Subjective Progress Note Date: 08/29/23 Principal diagnosis: Reason for follow-up is sepsis and fecal peritonitis Patient is a 72-year-old male with a past medical history significant for atrial fibrillation coronary artery disease hyperlipidemia [place] prostate cancer admitted to the hospital for bowel obstruction treated medically subsequently taken to the OR and the patient was noticed to have feculent john tonitis in this patient who is status post laparotomy with lysis of adhesion decompressive colectomy with closure. On today's evaluation that is 08/29/2023,the patient remains to be intubated on the vent no temperature has been recorded, the patient is currently on 45% FiO2 no significant purulent secretions through the ET still requiring pressor support to maintain his blood pressure Patient white count is 35.9 and creatinine 0.83 cultures currently pending Objective - Vital Signs Vital signs: Vital Signs Temp 98.2 F 08/29/23 08:00 Pulse 115 H 08/29/23 11:00 Resp 23 08/29/23 11:00 BP 135/63 08/29/23 06:15 Pulse Ox 95 08/29/23 11:00 FiO2 40 08/29/23 12:00 Intake & Output 08/28/23 08/29/23 08/29/23 18:59 06:59 18:59 Intake Total 4819.268 2450.983 1272.887 Output Total 1545 815 130 Balance 3274.268 3081.194 7813.887 Weight 75.4 kg 81.6 kg Intake: IV 4098 2052 513 Albumin Human 5% 250 ml 500 In Empty Bag 1 bag @ 250 mls/hr IVPB ONCE ONE Rx#: [id number] Mvi, Adult No.4 with Vit 1170 780 195 K 10 ml Trace (Conc-1Ml/ Dose) 1 ml Sodium Chloride 4Meq/ml Vial 20 meq In Amino Acid 5%-D20w +Lytes*E* 1,000 ml @ 90 mls/hr IV .BY DURATION [facility] Rx#:[id number] NS 1350 1200 300 NS Pressure Pack 1078 72 18 Intake, IV Titration 721.268 398.983 759.887 Amount DOBUTamine DRIP 500 mg In 27.823 188.123 Dextrose/Water 1 250ml. bag @ 5 MCG/KG/MIN 11.31 mls/hr IV .Q22H7M [facility] Rx# :[id number] EPINEPHrine 4 mg In 200.288 Dextrose 5% in Water 250 ml @ 0.05 MCG/KG/MIN 14. 138 mls/hr IV .[id number] [facility] Rx#:[id number] Meropenem 1 gm In Sodium 100 Chloride 0.9% 100 ml @ 33 .3 mls/hr IVPB Q8H [facility] Rx #:[id number] Norepinephrine 32 mg In 39.351 164.939 239.161 Sodium Chloride 0.9% 218 ml @ 0.4 MCG/KG/MIN 14. 138 mls/hr IV .[id number] [facility] Rx#:[id number] Norepinephrine 4 mg In 254 Sodium Chloride 0.9% 250 ml @ 0.03 MCG/KG/MIN 7. 944 mls/hr IV .Q24H [facility] Rx#:[id number] Piperacillin-Tazobactam 3 100 .375 gm In Sodium Chloride 0.9% 100 ml @ 25 mls/hr IVPB Q8HR [facility] Rx# :[id number] Vasopressin 20 unit In 45.212 50.923 51 Sodium Chloride 0.9% 50 ml @ 0.04 UNITS/MIN 6.12 mls/hr IV .Q8H20M [facility] Rx# :[id number] propofoL 1,000 mg In 182.705 155.298 81.315 Empty Bag 1 bag @ 15 MCG/ KG/MIN 6.255 mls/hr IV . Q16H [facility] Rx#:[id number] Output: Gastric Drainage 150 Urine 1545 665 130 Other: Voiding Method Indwelling Catheter Indwelling Catheter Indwelling Catheter ABP, PAP, CO, CI - Last Documented Arterial Blood Pressure 99/48 - Exam GENERAL DESCRIPTION: An elderly male intubated on the vent RESPIRATORY SYSTEM: Unlabored breathing , decreased breath sounds at bases HEART: S1 S2 regular rate and rhythm , ABDOMEN: Soft , no tenderness EXTREMITIES: No edema feet - Labs CBC & Chem 7: 08/31/23 04:40 08/31/23 04:40 Labs: Abnormal Lab Results - Last 24 Hours (Table) 08/28/23 08/28/23 08/29/23 Range/Units 18:00 18:00 02:31 WBC 35.7 H (3.8-10.6) k/uL RBC 3.87 L (4.30-5.90) m/uL Hgb 11.2 L (13.0-17.5) gm/dL Hct 36.3 L (39.0-53.0) % MCHC 30.9 L (31.0-37.0) g/dL RDW 15.6 H (11.5-15.5) % Neutrophils # (Manual) (1.3-7.7) k/uL ABG pH 7.34 L (7.35-7.45) ABG pO2 (83-108) mmHg Sodium 136 L (137-145) mmol/L Chloride 109 H (98-107) mmol/L Carbon Dioxide 21 L (22-30) mmol/L BUN 30 H (9-20) mg/dL Glucose 137 H (74-99) mg/dL Calcium 7.3 L (8.4-10.2) mg/dL 08/29/23 08/29/23 08/29/23 Range/Units 02:35 02:35 06:10 WBC 35.9 H (3.8-10.6) k/uL RBC 3.75 L (4.30-5.90) m/uL Hgb 11.0 L (13.0-17.5) gm/dL Hct 35.5 L (39.0-53.0) % MCHC 30.9 L (31.0-37.0) g/dL RDW (11.5-15.5) % Neutrophils # (Manual) 33.30 H (1.3-7.7) k/uL ABG pH (7.35-7.45) ABG pO2 79 L (83-108) mmHg Sodium 135 L (137-145) mmol/L Chloride 109 H (98-107) mmol/L Carbon Dioxide (22-30) mmol/L BUN 31 H (9-20) mg/dL Glucose 149 H (74-99) mg/dL Calcium 7.1 L (8.4-10.2) mg/dL Microbiology - Last 24 Hours (Table) 08/27/23 13:00 Gram Stain - Preliminary Other - Other Wound Culture - Preliminary Gram Neg Bacilli 08/27/23 14:15 Gram Stain - Preliminary Sputum Assessment and Plan (1) Fecal peritonitis Current Visit: Yes Status: Acute Code(s): K65.8 - OTHER PERITONITIS SNOMED Code(s): 831515553 (2) Leukocytosis Current Visit: No Status: Acute Code(s): D72.829 - ELEVATED WHITE BLOOD CELL COUNT, UNSPECIFIED SNOMED Code(s): 663359503 (3) Sepsis Current Visit: No Status: Acute Code(s): A41.9 - SEPSIS, UNSPECIFIED ORGANISM SNOMED Code(s): 82988466 Plan: 1patient with sepsis/septic shock in this patient who did have a tachycardia elevated white count source is fecal peritonitis in this patient who is status post extensive abdominal surgery for small bowel obstruction we will need to cover for enteric gram-negative both aerobes and anaerobes 2-culture have been obtained results will be followed 3-patient antibiotic has been adjusted to meropenem which will be continued while waiting for the culture to finalize Dictation was produced using [employer] dictation software. please excuse any grammatical, word or spelling errors. Time with Patient: Less than 30
--- NOTE | 2023-08-31 08:17 | P.PN ---
Subjective Progress Note Date: 08/30/23 Principal diagnosis: Reason for follow-up is sepsis and fecal peritonitis Patient is a 72-year-old male with a past medical history significant for atrial fibrillation coronary artery disease hyperlipidemia [place] prostate cancer admitted to the hospital for bowel obstruction treated medically subsequently taken to the OR and the patient was noticed to have feculent john tonitis in this patient who is status post laparotomy with lysis of adhesion decompressive colectomy with closure. On today's evaluation that is 08/30/2023,the patient did have a low-grade fever 100 F at noon otherwise the patient has been afebrile patient is on the vent with an FiO2 of 45% no significant purulent secretion through the ET patient is requiring pressor support to maintain his blood pressure slightly less than yesterday. The patient white count slightly down to 34.1 creatinine 0.88 abdominal cultures growing Klebsiella and anaerobe Klebsiella is resistant to Zosyn and ceftriaxone Objective - Vital Signs Vital signs: Vital Signs Temp 100 F H 08/30/23 12:00 Pulse 112 H 08/30/23 12:00 Resp 25 H 08/30/23 12:00 BP 135/63 08/29/23 06:15 Pulse Ox 95 08/30/23 12:00 FiO2 40 08/30/23 12:00 Intake & Output 08/29/23 08/30/23 08/30/23 18:59 06:59 18:59 Intake Total 2323.652 2240.623 788.746 Output Total 623 887 8181 Balance 8079.225 9957.623 -426.254 Weight 84.9 kg Intake: IV 1361 1272 306 Mvi, Adult No.4 with Vit 195 K 10 ml Trace (Conc-1Ml/ Dose) 1 ml Sodium Chloride 4Meq/ml Vial 20 meq In Amino Acid 5%-D20w +Lytes*E* 1,000 ml @ 90 mls/hr IV .BY DURATION [facility] Rx#:[id number] NS 1100 1200 300 NS Pressure Pack 66 72 6 Intake, IV Titration 962.652 968.623 482.746 Amount Calcium Gluconate in NaCl 100 1 gm In Saline 1 100ml. bag @ 100 mls/hr IVPB ONCE ONE Rx#:[id number] DOBUTamine DRIP 500 mg In 188.123 Dextrose/Water 1 250ml. bag @ 5 MCG/KG/MIN 11.31 mls/hr IV .Q22H7M [facility] Rx# :[id number] EPINEPHrine 4 mg In 286.765 594.956 19.794 Dextrose 5% in Water 250 ml @ 0.05 MCG/KG/MIN 14. 138 mls/hr IV .[id number] [facility] Rx#:[id number] Norepinephrine 32 mg In 239.161 222.667 211.952 Sodium Chloride 0.9% 218 ml @ 0.4 MCG/KG/MIN 14. 138 mls/hr IV .[id number] [facility] Rx#:[id number] Vasopressin 20 unit In 100.776 51 51 Sodium Chloride 0.9% 50 ml @ 0.04 UNITS/MIN 6.12 mls/hr IV .Q8H20M [facility] Rx# :[id number] propofoL 1,000 mg In 147.827 100 100 Empty Bag 1 bag @ 15 MCG/ KG/MIN 6.255 mls/hr IV . Q16H [facility] Rx#:[id number] Output: Gastric Drainage 50 225 Urine 461 516 0488 Other: Voiding Method Indwelling Catheter Indwelling Catheter Indwelling Catheter ABP, PAP, CO, CI - Last Documented Arterial Blood Pressure 106/49 - Exam GENERAL DESCRIPTION: An elderly male intubated on the vent RESPIRATORY SYSTEM: Unlabored breathing , decreased breath sounds at bases HEART: S1 S2 regular rate and rhythm , ABDOMEN: Soft , no tenderness EXTREMITIES: No edema feet - Labs CBC & Chem 7: 08/31/23 04:40 08/31/23 04:40 Labs: Abnormal Lab Results - Last 24 Hours (Table) 08/29/23 08/30/23 08/30/23 Range/Units 23:51 04:15 04:15 WBC 34.1 H (3.8-10.6) k/uL RBC 3.55 L (4.30-5.90) m/uL Hgb 10.3 L (13.0-17.5) gm/dL Hct 33.5 L (39.0-53.0) % MCHC 30.6 L (31.0-37.0) g/dL RDW 16.2 H (11.5-15.5) % Neutrophils # (Manual) 32.30 H (1.3-7.7) k/uL Lymphocytes # (Manual) 0.68 L (1.0-4.8) k/uL Monocytes # (Manual) 1.02 H (0-1.0) k/uL ABG pH (7.35-7.45) ABG pO2 (83-108) mmHg ABG Total CO2 (19-24) mmol/L ABG O2 Saturation (94-97) % Sodium 135 L (137-145) mmol/L Chloride 108 H (98-107) mmol/L Carbon Dioxide 19 L (22-30) mmol/L BUN 36 H (9-20) mg/dL Glucose 161 H (74-99) mg/dL POC Glucose (mg/dL) 156 H (70-110) mg/dL Calcium 6.9 L (8.4-10.2) mg/dL Ionized Calcium Bird 4.4 L (4.5-5.3) mg/dL 08/30/23 08/30/23 Range/Units 06:00 12:01 WBC (3.8-10.6) k/uL RBC (4.30-5.90) m/uL Hgb (13.0-17.5) gm/dL Hct (39.0-53.0) % MCHC (31.0-37.0) g/dL RDW (11.5-15.5) % Neutrophils # (Manual) (1.3-7.7) k/uL Lymphocytes # (Manual) (1.0-4.8) k/uL Monocytes # (Manual) (0-1.0) k/uL ABG pH 7.34 L (7.35-7.45) ABG pO2 111 H (83-108) mmHg ABG Total CO2 25 H (19-24) mmol/L ABG O2 Saturation 97.6 H (94-97) % Sodium (137-145) mmol/L Chloride (98-107) mmol/L Carbon Dioxide (22-30) mmol/L BUN (9-20) mg/dL Glucose (74-99) mg/dL POC Glucose (mg/dL) 139 H (70-110) mg/dL Calcium (8.4-10.2) mg/dL Ionized Calcium Bird (4.5-5.3) mg/dL Microbiology - Last 24 Hours (Table) 08/27/23 14:15 Gram Stain - Final Sputum Sputum Culture - Final Klebsiella oxytoca 08/27/23 13:00 Gram Stain - Final Other - Other Wound Culture - Final Klebsiella oxytoca 08/28/23 09:12 Blood Culture - Preliminary Blood Assessment and Plan (1) Fecal peritonitis Current Visit: Yes Status: Acute Code(s): K65.8 - OTHER PERITONITIS SNOMED Code(s): 336596430 (2) Leukocytosis Current Visit: No Status: Acute Code(s): D72.829 - ELEVATED WHITE BLOOD CELL COUNT, UNSPECIFIED SNOMED Code(s): 928685663 (3) Sepsis Current Visit: No Status: Acute Code(s): A41.9 - SEPSIS, UNSPECIFIED ORGANISM SNOMED Code(s): 19842187 Plan: 1patient with sepsis/septic shock in this patient who did have a tachycardia elevated white count source is fecal peritonitis in this patient who is status post extensive abdominal surgery for small bowel obstruction we will need to cover for enteric gram-negative both aerobes and anaerobes 2-abdominal cultures growing Klebsiella that is resistant to Unasyn as well as Zosyn though sensitive to meropenem and ertapenem as well as anaerobes 3-patient to continue with meropenem and monitor his clinical course closely Dictation was produced using [employer] dictation software. please excuse any grammatical, word or spelling errors. Time with Patient: Less than 30
--- NOTE | 2023-08-31 08:25 | P.PN ---
Subjective Progress Note Date: 08/31/23 Patient is a 72-year-old male with a history of Hodgkin's lymphoma status post chemo radiation and splenectomy in the 1970s, atrial fibrillation, dyslipidemia, coronary artery disease with myocardial infarction and coronary artery bypass surgery, and prostate cancer who presented to the emergency department with complaints of nausea and vomiting. Patient was hospitalized here from 08/01/23 through 08/17/23 for ileus and possible pneumonia. He was treated conservatively. On arrival to the ER he was tachycardic with a pulse of 107. Laboratory in the ER consisted of CBC, coags, and CMP and was remarkable for sodium 135, lactic acid 2.3, and AST of 60. Abdominal x-ray was consistent with ileus. NG tube was placed. Arrangements were made for admission. He underwent CT abdomen pelvis which shows high density contrast into the rectum suggesting no complete obstruction, but could still be a partial obstruction along with anasarca of the soft tissues. He was seen by surgery and subsequently underwent small bowel follow-through which showed contrast in the cecum due to residual suspicious for partial versus complete obstruction. Surgical team determined that he would require surgical intervention. They recommended PICC line for TPN. Cardiology was consulted and determined that the patient was in intermediate risk with no absolute contraindication for surgery. Echocardiogram was obtained which showed an ejection fraction of 25 to 30% with mild pulmonary hypertension and prior inferior wall myocardial infarction with hypokinesis, moderate to severe tricuspid regurgitation, and large pleural effusion. Pulmonary was also consulted for presurgical clearance due to the patient's large pleural effusion. Patient subsequently underwent left-sided thoracentesis on with removal of 1200 cc of fluid, on 08/24 the patient underwent right- sided thoracentesis with removal of 1100 cc of turbulent fluid. On 08/26 patient underwent exploratory laparotomy with lysis of adhesions, decompressive colectomy with closure, and peritoneal lavage. Postoperatively the patient remained intubated and was subsequently transferred to the ICU. He had issues with postoperative hypotension and atrial fibrillation. He required vasopressor support with norepinephrine. Patient was subsequently diagnosed with septic shock which was felt to be due to fecal peritonitis and infectious disease was consulted. Patient was started on Zosyn 3.375 g. Patient's hemodynamics continued to worsen requiring multiple pressors and he is subsequently started on vasopressin and epinephrine along with dobutamine. On 08/29 patient's surgical pathology became available which was consistent with metastatic adenocarcinoma involving subserosal tissue likely from the upper gastrointestinal or pancreatic biliary tract. Patient seen and examined at bedside. Discussed with nursing no acute events overnight. 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 Could consider comfort/hospice care. -Infectious disease note reviewed: Klebsiella that is resistant to Unasyn and Zosyn therefore patient is on meropenem. Acute on chronic systolic congestive heart failure with ejection fraction 25 to 30% Bilateral pleural effusion status bilateral postthoracentesis -Continue with Lasix 40 mg IV every 12 hours -Not a candidate for beta-carolyn, Aldactone, or TAINA/ARB due to hypotension. Chronic: Atrial fibrillation Coronary artery disease status post coronary artery bypass grafting Hypothyroidism Dyslipidemia Resolved: Metabolic acidosis Imaging: CXR reviewed: bilateral pleural effusions Data Review: Labs reviewed from today include CBC and basic metabolic profile which are remarkable for white blood cell count 28.7, hemoglobin 9.9, sodium 134, BUN 41, creatinine 0.86 DVT prophylaxis: Lovenox Poor over all prognosis This dictation was prepared using [employer] voice recognition software. Though every attempt is made to correct errors during dictation some may still exist. Objective - Vital Signs Vital signs: Vital Signs Temp 98.9 F 08/31/23 00:00 Pulse 110 H 08/31/23 07:00 Resp 18 08/31/23 07:00 BP 135/63 08/29/23 06:15 Pulse Ox 96 08/31/23 07:00 FiO2 45 08/31/23 08:00 Intake & Output 08/30/23 08/31/23 08/31/23 18:59 06:59 18:59 Intake Total 3345.544 1831.311 126 Output Total 1825 1355 Balance 1520.544 476.311 126 Weight 85 kg 84.5 kg Intake: IV 606 716 61 KVO 50 5 NS 600 600 50 NS Pressure Pack 6 66 6 Intake, IV Titration 2739.544 1115.311 65 Amount Calcium Gluconate in NaCl 100 1 gm In Saline 1 100ml. bag @ 100 mls/hr IVPB ONCE ONE Rx#:[id number] DOBUTamine DRIP 500 mg In 250 Dextrose/Water 1 250ml. bag @ 5 MCG/KG/MIN 11.31 mls/hr IV .Q22H7M [facility] Rx# :[id number] EPINEPHrine 4 mg In 19.794 Dextrose 5% in Water 250 ml @ 0.05 MCG/KG/MIN 14. 138 mls/hr IV .[id number] [facility] Rx#:[id number] Meropenem 1 gm In Sodium 100 200 Chloride 0.9% 100 ml @ 33 .3 mls/hr IVPB Q8H [facility] Rx #:[id number] Mvi, Adult No.4 with Vit 715 780 65 K 10 ml Trace (Conc-1Ml/ Dose) 1 ml Sodium Acetate 60 meq In Amino Acid 5%- D20w+Lytes*E* 1,000 ml @ 65 mls/hr IV .BY DURATION [facility] Rx#:[id number] Norepinephrine 32 mg In 273.750 33.311 Sodium Chloride 0.9% 218 ml @ 0.4 MCG/KG/MIN 14. 138 mls/hr IV .[id number] [facility] Rx#:[id number] Sodium Acetate 60 meq In 1030 Amino Acid 5%-D20w+Lytes* E* 1,000 ml @ 65 mls/hr IV .BY DURATION [facility] Rx#: [id number] Vasopressin 20 unit In 51 102 Sodium Chloride 0.9% 50 ml @ 0.04 UNITS/MIN 6.12 mls/hr IV .Q8H20M [facility] Rx# :[id number] propofoL 1,000 mg In 200 Empty Bag 1 bag @ 15 MCG/ KG/MIN 6.255 mls/hr IV . Q16H [facility] Rx#:[id number] Output: Gastric Drainage 300 Urine 1825 1055 Other: Voiding Method Indwelling Catheter Indwelling Catheter ABP, PAP, CO, CI - Last Documented Arterial Blood Pressure 127/55 - Labs CBC & Chem 7: 08/31/23 04:40 08/31/23 13:39 Labs: Abnormal Lab Results - Last 24 Hours (Table) 08/30/23 08/30/23 08/31/23 Range/Units 12:01 17:54 00:56 WBC (3.8-10.6) k/uL RBC (4.30-5.90) m/uL Hgb (13.0-17.5) gm/dL Hct (39.0-53.0) % MCHC (31.0-37.0) g/dL RDW (11.5-15.5) % Neutrophils # (Manual) (1.3-7.7) k/uL ABG pH (7.35-7.45) ABG pCO2 (35-45) mmHg ABG pO2 (83-108) mmHg ABG HCO3 (21-25) mmol/L ABG Total CO2 (19-24) mmol/L Sodium (137-145) mmol/L BUN (9-20) mg/dL Glucose (74-99) mg/dL POC Glucose (mg/dL) 139 H 130 H 138 H (70-110) mg/dL Calcium (8.4-10.2) mg/dL 08/31/23 08/31/23 08/31/23 Range/Units 04:40 04:40 05:30 WBC 28.7 H (3.8-10.6) k/uL RBC 3.45 L (4.30-5.90) m/uL Hgb 9.9 L (13.0-17.5) gm/dL Hct 32.0 L (39.0-53.0) % MCHC 30.9 L (31.0-37.0) g/dL RDW 15.9 H (11.5-15.5) % Neutrophils # (Manual) 26.60 H (1.3-7.7) k/uL ABG pH 7.32 L (7.35-7.45) ABG pCO2 54 H (35-45) mmHg ABG pO2 111 H (83-108) mmHg ABG HCO3 28 H (21-25) mmol/L ABG Total CO2 30 H (19-24) mmol/L Sodium 134 L (137-145) mmol/L BUN 41 H (9-20) mg/dL Glucose 128 H (74-99) mg/dL POC Glucose (mg/dL) (70-110) mg/dL Calcium 7.3 L (8.4-10.2) mg/dL 08/31/23 Range/Units 06:01 WBC (3.8-10.6) k/uL RBC (4.30-5.90) m/uL Hgb (13.0-17.5) gm/dL Hct (39.0-53.0) % MCHC (31.0-37.0) g/dL RDW (11.5-15.5) % Neutrophils # (Manual) (1.3-7.7) k/uL ABG pH (7.35-7.45) ABG pCO2 (35-45) mmHg ABG pO2 (83-108) mmHg ABG HCO3 (21-25) mmol/L ABG Total CO2 (19-24) mmol/L Sodium (137-145) mmol/L BUN (9-20) mg/dL Glucose (74-99) mg/dL POC Glucose (mg/dL) 146 H (70-110) mg/dL Calcium (8.4-10.2) mg/dL Microbiology - Last 24 Hours (Table) 08/27/23 13:00 Anaerobic Culture - Final Other - Other Anaerobic Gm Negative Bacilli Anaerobic Gm Negative Bacilli#2 08/28/23 09:12 Blood Culture - Preliminary Blood 08/27/23 14:15 Gram Stain - Final Sputum Sputum Culture - Final Klebsiella oxytoca
--- NOTE | 2023-08-31 11:46 | XR ---
EXAMINATION TYPE: XR chest 1V portable DATE OF EXAM: 08/31/2023 Comparison: 08/30/2023 Clinical History: 72-year-old male mechanical ventilation Findings: Left anterior chest wall AICD generator with right ventricular lead. Median sternotomy wires. Post-CA BG clips. The heart margins are obscured by adjacent pleural-parenchymal opacity. Right CVC tip cavoa trial junction. Right PICC tip not clearly seen beyond the lower SVC level. Ongoing interstitial pulm onary edema and moderate bilateral pleural effusions. Impression: Ongoing CHF with pulmonary edema. Moderate bilateral pleural effusions with adjacent atelectasis and/ or consolidation also persist.
[2023-08-31 11:53] LABS: Glucose,Whole Blood 152 mg/dL (70-110)
--- NOTE | 2023-08-31 12:24 | P.PN ---
Subjective Progress Note Date: 08/31/23 Principal diagnosis: Reason for follow-up is sepsis and fecal peritonitis Patient is a 72-year-old male with a past medical history significant for atrial fibrillation coronary artery disease hyperlipidemia [place] prostate cancer admitted to the hospital for bowel obstruction treated medically subsequently taken to the OR and the patient was noticed to have feculent john tonitis in this patient who is status post laparotomy with lysis of adhesion decompressive colectomy with closure. On today's evaluation that is 08/31/2023, the patient did have a low-grade fever 100 F yesterday afternoon however patient is afebrile this morning, the patient remains to be intubated on the vent FiO2 currently at 40% no significant purulence suctioned the ET or any other changes reported by the nursing staff. Patient white count is down to 28.7 from a history of 34.1, creatinine 0.86 abdominal sputum culture with Klebsiella blood culture so far pending Objective - Vital Signs Vital signs: Vital Signs Temp 97.9 F 08/31/23 12:00 Pulse 112 H 08/31/23 12:00 Resp 21 08/31/23 12:00 BP 135/63 08/29/23 06:15 Pulse Ox 97 08/31/23 12:00 FiO2 40 08/31/23 12:00 Intake & Output 08/30/23 08/31/23 08/31/23 18:59 06:59 18:59 Intake Total 3345.544 1831.311 980.393 Output Total 1825 1355 1125 Balance 1520.544 476.311 -144.607 Weight 85 kg 84.5 kg Intake: IV 606 716 366 KVO 50 30 NS 600 600 300 NS Pressure Pack 6 66 36 Intake, IV Titration 2739.544 1115.311 604.393 Amount Calcium Gluconate in NaCl 100 1 gm In Saline 1 100ml. bag @ 100 mls/hr IVPB ONCE ONE Rx#:[id number] DOBUTamine DRIP 500 mg In 250 Dextrose/Water 1 250ml. bag @ 5 MCG/KG/MIN 11.31 mls/hr IV [facility]22H7[facility] Rx# :[id number] EPINEPHrine 4 mg In 19.794 Dextrose 5% in Water 250 ml @ 0.05 MCG/KG/MIN 14. 138 mls/hr IV .[id number] [facility] Rx#:[id number] Meropenem 1 gm In Sodium 100 200 Chloride 0.9% 100 ml @ 33 .3 mls/hr IVPB Q8H [facility] Rx #:[id number] Mvi, Adult No.4 with Vit 715 780 390 K 10 ml Trace (Conc-1Ml/ Dose) 1 ml Sodium Acetate 60 meq In Amino Acid 5%- D20w+Lytes*E* 1,000 ml @ 65 mls/hr IV .BY DURATION [facility] Rx#:[id number] Norepinephrine 32 mg In 273.750 33.311 214.393 Sodium Chloride 0.9% 218 ml @ 0.4 MCG/KG/MIN 14. 138 mls/hr IV .[id number] [facility] Rx#:[id number] Sodium Acetate 60 meq In 1030 Amino Acid 5%-D20w+Lytes* E* 1,000 ml @ 65 mls/hr IV .BY DURATION [facility] Rx#: [id number] Vasopressin 20 unit In 51 102 Sodium Chloride 0.9% 50 ml @ 0.04 UNITS/MIN 6.12 mls/hr IV .Q8H20M [facility] Rx# :[id number] propofoL 1,000 mg In 200 Empty Bag 1 bag @ 15 MCG/ KG/MIN 6.255 mls/hr IV . Q16H [facility] Rx#:[id number] Other 10 Output: Gastric Drainage 300 Urine 1825 1055 1125 Other: Voiding Method Indwelling Catheter Indwelling Catheter Indwelling Catheter ABP, PAP, CO, CI - Last Documented Arterial Blood Pressure 126/56 - Exam GENERAL DESCRIPTION: An elderly male intubated on the vent RESPIRATORY SYSTEM: Unlabored breathing , decreased breath sounds at bases HEART: S1 S2 regular rate and rhythm , ABDOMEN: Soft , no tenderness EXTREMITIES: No edema feet - Labs CBC & Chem 7: 08/31/23 04:40 08/31/23 04:40 Labs: Abnormal Lab Results - Last 24 Hours (Table) 08/30/23 08/31/23 08/31/23 Range/Units 17:54 00:56 04:40 WBC 28.7 H (3.8-10.6) k/uL RBC 3.45 L (4.30-5.90) m/uL Hgb 9.9 L (13.0-17.5) gm/dL Hct 32.0 L (39.0-53.0) % MCHC 30.9 L (31.0-37.0) g/dL RDW 15.9 H (11.5-15.5) % Neutrophils # (Manual) 26.60 H (1.3-7.7) k/uL ABG pH (7.35-7.45) ABG pCO2 (35-45) mmHg ABG pO2 (83-108) mmHg ABG HCO3 (21-25) mmol/L ABG Total CO2 (19-24) mmol/L Sodium (137-145) mmol/L BUN (9-20) mg/dL Glucose (74-99) mg/dL POC Glucose (mg/dL) 130 H 138 H (70-110) mg/dL Calcium (8.4-10.2) mg/dL 08/31/23 08/31/23 08/31/23 Range/Units 04:40 05:30 06:01 WBC (3.8-10.6) k/uL RBC (4.30-5.90) m/uL Hgb (13.0-17.5) gm/dL Hct (39.0-53.0) % MCHC (31.0-37.0) g/dL RDW (11.5-15.5) % Neutrophils # (Manual) (1.3-7.7) k/uL ABG pH 7.32 L (7.35-7.45) ABG pCO2 54 H (35-45) mmHg ABG pO2 111 H (83-108) mmHg ABG HCO3 28 H (21-25) mmol/L ABG Total CO2 30 H (19-24) mmol/L Sodium 134 L (137-145) mmol/L BUN 41 H (9-20) mg/dL Glucose 128 H (74-99) mg/dL POC Glucose (mg/dL) 146 H (70-110) mg/dL Calcium 7.3 L (8.4-10.2) mg/dL 08/31/23 Range/Units 11:52 WBC (3.8-10.6) k/uL RBC (4.30-5.90) m/uL Hgb (13.0-17.5) gm/dL Hct (39.0-53.0) % MCHC (31.0-37.0) g/dL RDW (11.5-15.5) % Neutrophils # (Manual) (1.3-7.7) k/uL ABG pH (7.35-7.45) ABG pCO2 (35-45) mmHg ABG pO2 (83-108) mmHg ABG HCO3 (21-25) mmol/L ABG Total CO2 (19-24) mmol/L Sodium (137-145) mmol/L BUN (9-20) mg/dL Glucose (74-99) mg/dL POC Glucose (mg/dL) 152 H (70-110) mg/dL Calcium (8.4-10.2) mg/dL Microbiology - Last 24 Hours (Table) 08/27/23 13:00 Anaerobic Culture - Final Other - Other Anaerobic Gm Negative Bacilli Anaerobic Gm Negative Bacilli#2 08/28/23 09:12 Blood Culture - Preliminary Blood 08/27/23 14:15 Gram Stain - Final Sputum Sputum Culture - Final Klebsiella oxytoca Assessment and Plan (1) Fecal peritonitis Current Visit: Yes Status: Acute Code(s): K65.8 - OTHER PERITONITIS SNOMED Code(s): 047114102 (2) Leukocytosis Current Visit: No Status: Acute Code(s): D72.829 - ELEVATED WHITE BLOOD CELL COUNT, UNSPECIFIED SNOMED Code(s): 503388380 (3) Sepsis Current Visit: No Status: Acute Code(s): A41.9 - SEPSIS, UNSPECIFIED ORGANISM SNOMED Code(s): 84180593 Plan: 1patient with sepsis/septic shock in this patient who did have a tachycardia elevated white count source is fecal peritonitis in this patient who is status post extensive abdominal surgery for small bowel obstruction we will need to cover for enteric gram-negative both aerobes and anaerobes 2-abdominal cultures growing Klebsiella that is resistant to Unasyn as well as Zosyn though sensitive to meropenem and ertapenem as well as anaerobes 3-patient did have resolution of his fever and the patient white count is trending down, we will continue with meropenem and monitor his clinical course closely Dictation was produced using [employer] dictation software. please excuse any grammatical, word or spelling errors. Time with Patient: Less than 30
--- NOTE | 2023-08-31 13:43 | P.PN ---
Subjective Progress Note Date: 08/31/23 Principal diagnosis: Acute small bowel obstruction I was asked to evaluate this patient regarding bilateral pleural effusions. The patient was admitted on 08/20/2023 for complaints of nausea and emesis. The patient is known to me from a previous hospitalization between 08/01/2023 and 08/17/2023. At that time, the patient was quite ill and he was seen and evaluated in the intensive care unit for shock/hypotension which was thought to be septic in nature. At time, the patient also had ileus/small bowel obstruction and ischemic colitis and the patient was treated conservatively and following his discharge he was tolerating full liquid diet but not regular.. Septic shock was highly suspected and the patient is immunocompromised due to his previous splenectomy. The patient was treated and the patient was discharged to be readmitted after a short period of time. He is known to have severe cardiomyopathy with an ejection fraction of 30 to 35%. He has coronary artery disease with previous [place] and previous coronary bypass surgery. He also has bilateral pleural effusion and we have performed a right-sided thoracentesis on this patient on 08/10/2023 and based on that pleural fluid analysis, the patient had a transudate with low LDH and protein in the pleural fluid cytology collected was negative for malignancy. Note that, at that time, the patient had a total of 1.2 L of pleural fluid aspirated from the right lung without any complications. He is also known to have history of Hodgkin's lymphoma with a previous splenectomy followed by chemoradiation therapy this was performed in 1976 in 1977. He is known to have prostate cancer, hypothyroidism, hyperlipide alvino. During this current admission, the patient was seen and evaluated by general surgery. Regarding his progressive abdominal distention and nausea and emesis. The patient during this current admission underwent a small bowel follow-through and the patient was found to have findings suspicious for partial versus complete obstruction. Based on that, the patient is currently being considered for surgical exploration. He was supposed to go for surgery today and there was concern about his respiratory status as the patient had developed also bilateral pleural effusions. Based on that, pulmonary consultation was requested. He currently has an NG tube for decompression. He also has TPN for nutritional support. He is not receiving any form of antibiotics. He remains on oral Diflucan only. His white cell count is at 12 with a hemoglobin 12.5 and a platelet count of 369. BUN is at 20 with a creatinine 0.7. Sodium is at 139. Most recent echocardiogram that was done today showed impairment of LV function with an ejection fraction of 25 to 30%. There was also inferior wall hypoki nesis and moderate MR and moderate aortic regurgitation and moderate to severe tricuspid regurgitation. The chest x-ray from today showing bilateral pleural effusion slightly worse on the left. The patient has an NG tube in place. On today's evaluation of 2023, the patient is being seen for a follow-up he is calm and comfortable on room air oxygen. I performed a left-sided thoracentesis on this patient yesterday with a total of 1.2 L of fluid drained. The right side will be done today as the patient is being prepped and optimized for surgery. He is still NPO. He has an NG tube in place. Output is still active. Abdomen is distended. It is not tender. Postprocedure chest x-ray s howed no evidence of any pneumothorax. There is residual right-sided pleural effusion. BUN is at 21 with a creatinine of 0.7. Sodium level is at 136 and the patient remains on TPN for nutritional support. No other significant events overnight. 08/27/2023, the patient is being seen in follow-up. The patient was taken to the operating room and the patient underwent expiratory laparotomy and extensive lysis of adhesions was done. Decompression of the bowel was done with closure and this involves a decompression colotomy with closure and this involved the transverse colon. Peritoneal lavage was done with a total of 3 L. The incision was closed and a wound VAC was applied. Postop, the patient was kept intubated on mechanical ventilator and he was transferred to the intensive care unit. He was having some difficulties with hypotension preoperatively and he did have short runs of atrial fibrillation. His current rhythm is sinus. He is currently on propofol running at 25 mcg/kg/min. The patient is hemodynamically hypotensive and he is on norepinephrine at 0.08 mcg/kg/min. He was given a total of 1.5 L of fluid in the operating room. Another 1 L bolus will be given to him right now. He is maintenance fluid to be increased up to 150 cc an hour. He is currently on assist-control of 14, tidal volume of 400, FiO2 is 100% with a PEEP of 5 and the patient's pH was at 7.4 with a pCO2 of 47 and pO2 of more than 100. FiO2 was weaned down to 40%.. Chest x-ray showed NG tube being in good location. There is trace pleural effusion and there is a triple-lumen catheter in the right IJ which seems to be in good location for now. The blood work from this morning showed a BUN of 31 with a creatinine of 0.7 and his sodium level was at 134 and the potassium level was at 3.4. He is well sedated and synchronous with mechanical ventilator. He remains on TPN for nutritional support. No other significant issues for now. The Lopressor disaster will be placed on hold for now. Will also hold on his Lasix. Patient was reevaluated today on 08/28/2023, patient remains in the ICU, intubated and mechanically ventilated. Patient is status post expiratory laparotomy and extensive lysis of adhesions was done. Postoperative day #1. Remains intubated and mechanically ventilated. Patient is on assist-control rate of 16 tidal volume 400 FiO2 40% and PEEP of 5. ABG showed a pO2 of 99 pCO2 42 pH of 7.32. Blood pressure is marginal in spite of maximal therapy with norepinephrine at 0.5 mcg/kg/min, he is also on vasopressin at 0.03 units/min, patient is receiving propofol at 35 mg/kg/min, IV fluid is running at 150 cc/h. Patient is also receiving TPN, and he has received albumin. Intermittently the patient was receiving Lasix which I placed on hold because of his marginal blood pressure. Antibiotics graf patient remains on Zosyn and Diflucan. Apparently the patient was found to have fecal peritonitis when he underwent exploratory laparotomy. WBC count today is 21.5 hemoglobin 11.9. ABG showed a pO2 of 99 pCO2 42 pH of 7.32 basic metabolic profile is normal renal profile is normal chest x-ray is showing evidence of small bilateral pleural effusions and I suspect mild interstitial edema echocardiogram on this admission showed LV dysfunction, patient may improve with dobutamine, and I will try to go on a trial of dobutamine at 2.5 mcg/kg/min Patient was reevaluated today on 11/16, remains in the ICU intubated and mechanically ventilated. Patient is quite unstable, he is hemodynamically doing poorly, requiring multiple pressors and inotropes. He is now on norepinephrine at 0.5 mcg/kg/min/maxed vasopressin at 0.04 units/min, max patient is on epinep hrine at 0.05 mcg/kg/min being titrated, he is also on propofol, dobutamine 5 mcg/kg/min patient is receiving TPN, and is also on Merrem. ABG this morning showed a pO2 of 79 pCO2 39 pH of 7.36, and this is on assist-control rate of 16 tidal volume 400 FiO2 40% and PEEP of 5. Chest x-ray continues to show evidence of pulmonary edema, patient will definitely benefit from diuresis, however his blood pressure seems to be an issue, may gently diurese today. Otherwise his pulmonary status may deteriorate and the patient may end up requiring higher FiO2 and higher PEEP patient has continued leukocytosis with WBC count of 35.9 hemoglobin 11 basic metabolic profile is normal renal profile is normal condition graf, patient is on TPN at 65 cc/h. Propofol is at 30 mcg/kg/min Patient was reevaluated today on 08/30/2023, remains in the ICU, intubated and mechanically ventilated. Patient is on assist-control rate of 16 tidal volume 400 FiO2 40% and PEEP of 5. Chest x-ray is showing worsening bilateral pleural effusions and pulmonary edema, hence Lasix was given today. Patient remains on pressors and inotropes including norepinephrine, vasopressin, dobutamine, he is off epinephrine. Overall the patient is about the same, he is sedated, on propofol and is also on fentanyl. There is pulmonary edema, Lasix was given, and this will be given 40 mg IV push twice daily for biotics graf patient remains on Merrem, nutrition graf patient is receiving TPN ABG showed a pO2 of 111 pCO2 44 pH of 7.34. Basic metabolic profile is normal, CBC is showing significant leukocytosis with WBC count of 34.1 hemoglobin is 10.3 renal profile is normal with BUN of 36 creatinine 0.8 overall the patient is not doing well, remains on propofol and he is not ready for any form of weaning trials at this point Patient was reevaluated today on 08/31/2023, remains in the ICU, remains intubated and mechanically ventilated. Patient is on assist-control rate of 16 tidal volume 400 FiO2 45% PEEP of 5 ABG showed a pO2 of 111 pCO2 54 pH of 7.32, hence his rate was increased up to 18 and his FiO2 was cut down to 40%. Patient remains on multiple drips including vasopressin at 0.04, norepinephrine at 0.35 mcg/kg/min, dobutamine at 5 mg/kg/min propofol at 30 mcg/kg/min he is also on TPN at 65 cc/h IV fluid 50 cc/h of 0.9 normal saline. Remains on Lasix at 40 mg IV push twice daily. Chest x-ray continues to show evidence of pulmonary edema with bilateral pleural effusions, however the patient is responding to Lasix and he continues to have significant and good urine output. The pathology on his bowel tissue came back showing evidence of metastatic disease to the GI tract, most likely the primary source is either pancreatic or hepatobiliary. Family was notified about the diagnosis by Dr. Andino on the case WBC count today is 28.7 hemoglobin is 9.9. Platelets are 264. Basic metabolic profile is normal renal profile is normal bicarb is 25, chest x-ray continues to show evidence of ongoing congestive heart failure and moderate bilateral pleural effusions Objective - Vital Signs Vital signs: Vital Signs Temp 97.9 F 08/31/23 12:00 Pulse 111 H 08/31/23 13:00 Resp 20 08/31/23 13:00 BP 135/63 08/29/23 06:15 Pulse Ox 97 08/31/23 13:00 FiO2 40 08/31/23 12:28 Intake & Output 08/30/23 08/31/23 08/31/23 18:59 06:59 18:59 Intake Total 3345.544 8012.120 0389.534 Output Total 1825 1355 1350 Balance 1520.544 476.311 213.534 Weight 85 kg 84.5 kg Intake: IV 606 716 422 KVO 50 30 NS 600 600 350 NS Pressure Pack 6 66 42 Intake, IV Titration 2739.544 2701.276 8458.534 Amount Calcium Gluconate in NaCl 100 1 gm In Saline 1 100ml. bag @ 100 mls/hr IVPB ONCE ONE Rx#:[id number] DOBUTamine DRIP 500 mg In 250 250 Dextrose/Water 1 250ml. bag @ 5 MCG/KG/MIN 11.31 mls/hr IV .Q22H7M [facility] Rx# :[id number] EPINEPHrine 4 mg In 19.794 Dextrose 5% in Water 250 ml @ 0.05 MCG/KG/MIN 14. 138 mls/hr IV .[id number] [facility] Rx#:[id number] Meropenem 1 gm In Sodium 100 200 200 Chloride 0.9% 100 ml @ 33 .3 mls/hr IVPB Q8H [facility] Rx #:[id number] Mvi, Adult No.4 with Vit 715 780 455 K 10 ml Trace (Conc-1Ml/ Dose) 1 ml Sodium Acetate 60 meq In Amino Acid 5%- D20w+Lytes*E* 1,000 ml @ 65 mls/hr IV .BY DURATION [facility] Rx#:[id number] Norepinephrine 32 mg In 273.750 33.311 226.534 Sodium Chloride 0.9% 218 ml @ 0.4 MCG/KG/MIN 14. 138 mls/hr IV .[id number] [facility] Rx#:[id number] Sodium Acetate 60 meq In 1030 Amino Acid 5%-D20w+Lytes* E* 1,000 ml @ 65 mls/hr IV .BY DURATION [facility] Rx#: [id number] Vasopressin 20 unit In 51 102 Sodium Chloride 0.9% 50 ml @ 0.04 UNITS/MIN 6.12 mls/hr IV .Q8H20M [facility] Rx# :[id number] propofoL 1,000 mg In 200 Empty Bag 1 bag @ 15 MCG/ KG/MIN 6.255 mls/hr IV . Q16H [facility] Rx#:[id number] Other 10 Output: Gastric Drainage 300 Urine 1825 1055 1350 Other: Voiding Method Indwelling Catheter Indwelling Catheter Indwelling Catheter ABP, PAP, CO, CI - Last Documented Arterial Blood Pressure 127/56 - Exam GENERAL: Revealed 72-year-old white male looks frail, cachectic, intubated and mechanically ventilated Head: Atraumatic, normocephalic, endotracheal tube and orogastric tubes are in tact HEENT: No sclera icterus. Extraocular movements grossly intact. Moist buccal mucosa. Head is atraumatic, normocephalic. Hears conversational speech. No nasal drainage. NECK: Supple without lymphadenopathy. CHEST: Continues to have diminished breath sounds and crackles at the bases CARDIOVASCULAR: Normal S1-S2, no S3 gallop, 2/6 systolic murmur throughout the precordium ABDOMEN: Distended. Abdomen is firm, nontender. Surgical wound site is clean. Wound VAC noted. No bowel sounds. No direct tenderness or rebound tenderness or guarding. MUSCULOSKELETAL: No clubbing, 1+ bipedal edema, no cyanosis. NEUROLOGIC: Could not assess patient is sedated and mechanically ventilated. PSYCH: Unable to obtain SKIN: No rashes - Labs CBC & Chem 7: 08/31/23 04:40 08/31/23 04:40 Labs: Abnormal Lab Results - Last 24 Hours (Table) 08/30/23 08/31/23 08/31/23 Range/Units 17:54 00:56 04:40 WBC 28.7 H (3.8-10.6) k/uL RBC 3.45 L (4.30-5.90) m/uL Hgb 9.9 L (13.0-17.5) gm/dL Hct 32.0 L (39.0-53.0) % MCHC 30.9 L (31.0-37.0) g/dL RDW 15.9 H (11.5-15.5) % Neutrophils # (Manual) 26.60 H (1.3-7.7) k/uL ABG pH (7.35-7.45) ABG pCO2 (35-45) mmHg ABG pO2 (83-108) mmHg ABG HCO3 (21-25) mmol/L ABG Total CO2 (19-24) mmol/L Sodium (137-145) mmol/L BUN (9-20) mg/dL Glucose (74-99) mg/dL POC Glucose (mg/dL) 130 H 138 H (70-110) mg/dL Calcium (8.4-10.2) mg/dL 08/31/23 08/31/23 08/31/23 Range/Units 04:40 05:30 06:01 WBC (3.8-10.6) k/uL RBC (4.30-5.90) m/uL Hgb (13.0-17.5) gm/dL Hct (39.0-53.0) % MCHC (31.0-37.0) g/dL RDW (11.5-15.5) % Neutrophils # (Manual) (1.3-7.7) k/uL ABG pH 7.32 L (7.35-7.45) ABG pCO2 54 H (35-45) mmHg ABG pO2 111 H (83-108) mmHg ABG HCO3 28 H (21-25) mmol/L ABG Total CO2 30 H (19-24) mmol/L Sodium 134 L (137-145) mmol/L BUN 41 H (9-20) mg/dL Glucose 128 H (74-99) mg/dL POC Glucose (mg/dL) 146 H (70-110) mg/dL Calcium 7.3 L (8.4-10.2) mg/dL 08/31/23 Range/Units 11:52 WBC (3.8-10.6) k/uL RBC (4.30-5.90) m/uL Hgb (13.0-17.5) gm/dL Hct (39.0-53.0) % MCHC (31.0-37.0) g/dL RDW (11.5-15.5) % Neutrophils # (Manual) (1.3-7.7) k/uL ABG pH (7.35-7.45) ABG pCO2 (35-45) mmHg ABG pO2 (83-108) mmHg ABG HCO3 (21-25) mmol/L ABG Total CO2 (19-24) mmol/L Sodium (137-145) mmol/L BUN (9-20) mg/dL Glucose (74-99) mg/dL POC Glucose (mg/dL) 152 H (70-110) mg/dL Calcium (8.4-10.2) mg/dL Microbiology - Last 24 Hours (Table) 08/27/23 13:00 Anaerobic Culture - Final Other - Other Anaerobic Gm Negative Bacilli Anaerobic Gm Negative Bacilli#2 08/28/23 09:12 Blood Culture - Preliminary Blood 08/27/23 14:15 Gram Stain - Final Sputum Sputum Culture - Final Klebsiella oxytoca Assessment and Plan Assessment: Impression: Acute hypoxic respiratory failure secondary to abdominal sepsis and septic shock Complete small bowel obstruction requiring exploratory laparotomy lysis of adhesions colostomy and decompression postoperative day #4 Acute fecal peritonitis. Hypotension secondary to sepsis septic shock and cardiogenic also in nature Severe LV dysfunction with ejection fraction of 20% Mild to moderate aortic regurgitation and tricuspid regurgitation with pulmonary hypertension Acute systolic congestive heart failure Underlying coronary artery disease and previous CABG History of Hodgkin's lymphoma and previous splenectomy History of prostate cancer History of atrial fibrillation presently in sinus rhythm History of hypothyroidism Dyslipidemia Bilateral pleural effusions requiring thoracentesis, multiple times. Transudative in nature. Cardiogenic in nature. 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 Recommendation: Continue ventilatory support, minimal changes made today, increase the rate up to 18 and decreased FiO2 to 40% Continue hemodynamic support including norepinephrine, vasopressin, dobutamine, considering his blood pressure today is becoming a bit more stable, we could consider cutting down further on his norepinephrine Continue Lasix 40 mg IV push twice daily Continue TPN.Nutritional support Continue GI and DVT prophylaxis Continue antibiotic patient is now on Merrem Continue ICU management Family is now aware of his grave prognosis/metastatic pancreatic or hepatobiliary malignancy/adenocarcinoma, may have to be considered for possible comfort care measures specially now with terminal illness for Overall prognosis remains extremely poor and guarded Critical care time is over 30 Will continue to follow Time with Patient: Greater than 30
--- NOTE | 2023-08-31 14:32 | P.PN ---
Subjective Progress Note Date: 08/31/23 CHIEF COMPLAINT: SBO HISTORY OF PRESENT ILLNESS: Patient admitted to the hospital with small bowel obstruction. Currently ICU intubated and on mechanical ventilation. He is postop day #4 status post exploratory laparotomy with lysis of adhesions, decompressive colotomy with closure, transverse colon, peritoneal lavage. 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 They have decreased the Levophed. Patient remains on vasopressin. He is receiving Lasix. He has been tachycardic. White count has gone down from 34-28. CODE STATUS is changed to no code PHYSICAL EXAM: VITAL SIGNS: Reviewed GENERAL: no acute distress. HEENT: No sclera icterus. Extraocular movements grossly intact. Moist buccal mucosa. Head is atraumatic, normocephalic. Hears conversational speech. No nasal drainage. NECK: Supple without lymphadenopathy. CHEST: Non-labored respirations and equal bilateral excursions. CARDIOVASCULAR: Palpable 2+ radial pulses. ABDOMEN: Distended. Prevana wound vac intact MUSCULOSKELETAL: No clubbing or cyanosis. NEUROLOGIC: No focal or lateralizing signs. Cranial nerves II through XII grossly intact. PSYCH: Intubated and sedated ASSESSMENT: 1. Small bowel obstruction due to adhesions 2. Paroxysmal atrial fibrillation 3. History of Hodgkin's lymphoma status post splenectomy including chemoradiation 4. History of prostate cancer status postradiation 5. Bilateral pleural effusion 6. Unintentional weight loss 7. Ischemic cardiomyopathy 8. Moderate to severe protein malnutrition 9. 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 History of ischemic colitis 12. Fecal peritonitis 13. Expected ileus due to cardiogenic shock and septic shock 14. 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 Andino did discuss pathology results with patient's son yesterday. -CODE STATUS is no code -Awaiting family decision regarding possible comfort care -Continue ICU management -Continue supportive care -Continue TPN for nutrition support -Continue antibiotics -DVT prophylaxis Lovenox Physician Hand Bender note has been reviewed by physician. Signing provider agrees with the documented findings, assessment, and plan of care. Objective - Vital Signs Vital signs: Vital Signs Temp 97.9 F 08/31/23 12:00 Pulse 107 H 08/31/23 14:00 Resp 23 08/31/23 14:00 BP 135/63 08/29/23 06:15 Pulse Ox 97 08/31/23 14:00 FiO2 40 08/31/23 12:28 Intake & Output 08/30/23 08/31/23 08/31/23 18:59 06:59 18:59 Intake Total 3345.544 0739.055 6768.086 Output Total 1825 1355 1500 Balance 1520.544 476.311 239.086 Weight 85 kg 84.5 kg Intake: IV 606 716 478 KVO 50 30 NS 600 600 400 NS Pressure Pack 6 66 48 Intake, IV Titration 2739.544 9202.418 4361.086 Amount Calcium Gluconate in NaCl 100 1 gm In Saline 1 100ml. bag @ 100 mls/hr IVPB ONCE ONE Rx#:[id number] DOBUTamine DRIP 500 mg In 250 250 Dextrose/Water 1 250ml. bag @ 5 MCG/KG/MIN 11.31 mls/hr IV .Q22H7M [facility] Rx# :[id number] EPINEPHrine 4 mg In 19.794 Dextrose 5% in Water 250 ml @ 0.05 MCG/KG/MIN 14. 138 mls/hr IV .[id number] [facility] Rx#:[id number] Meropenem 1 gm In Sodium 100 200 200 Chloride 0.9% 100 ml @ 33 .3 mls/hr IVPB Q8H [facility] Rx #:[id number] Mvi, Adult No.4 with Vit 715 780 520 K 10 ml Trace (Conc-1Ml/ Dose) 1 ml Sodium Acetate 60 meq In Amino Acid 5%- D20w+Lytes*E* 1,000 ml @ 65 mls/hr IV .BY DURATION [facility] Rx#:[id number] Norepinephrine 32 mg In 273.750 33.311 236.920 Sodium Chloride 0.9% 218 ml @ 0.4 MCG/KG/MIN 14. 138 mls/hr IV .[id number] [facility] Rx#:[id number] Sodium Acetate 60 meq In 1030 Amino Acid 5%-D20w+Lytes* E* 1,000 ml @ 65 mls/hr IV .BY DURATION [facility] Rx#: [id number] Vasopressin 20 unit In 51 102 44.166 Sodium Chloride 0.9% 50 ml @ 0.04 UNITS/MIN 6.12 mls/hr IV .Q8H20M [facility] Rx# :[id number] propofoL 1,000 mg In 200 Empty Bag 1 bag @ 15 MCG/ KG/MIN 6.255 mls/hr IV . Q16H [facility] Rx#:[id number] Other 10 Output: Gastric Drainage 300 Urine 1825 1055 1500 Other: Voiding Method Indwelling Catheter Indwelling Catheter Indwelling Catheter ABP, PAP, CO, CI - Last Documented Arterial Blood Pressure 118/54 - Labs CBC & Chem 7: 08/31/23 04:40 08/31/23 13:39 Labs: Abnormal Lab Results - Last 24 Hours (Table) 08/30/23 08/31/23 08/31/23 Range/Units 17:54 00:56 04:40 WBC 28.7 H (3.8-10.6) k/uL RBC 3.45 L (4.30-5.90) m/uL Hgb 9.9 L (13.0-17.5) gm/dL Hct 32.0 L (39.0-53.0) % MCHC 30.9 L (31.0-37.0) g/dL RDW 15.9 H (11.5-15.5) % Neutrophils # (Manual) 26.60 H (1.3-7.7) k/uL ABG pH (7.35-7.45) ABG pCO2 (35-45) mmHg ABG pO2 (83-108) mmHg ABG HCO3 (21-25) mmol/L ABG Total CO2 (19-24) mmol/L Sodium (137-145) mmol/L BUN (9-20) mg/dL Glucose (74-99) mg/dL POC Glucose (mg/dL) 130 H 138 H (70-110) mg/dL Calcium (8.4-10.2) mg/dL 08/31/23 08/31/23 08/31/23 Range/Units 04:40 05:30 06:01 WBC (3.8-10.6) k/uL RBC (4.30-5.90) m/uL Hgb (13.0-17.5) gm/dL Hct (39.0-53.0) % MCHC (31.0-37.0) g/dL RDW (11.5-15.5) % Neutrophils # (Manual) (1.3-7.7) k/uL ABG pH 7.32 L (7.35-7.45) ABG pCO2 54 H (35-45) mmHg ABG pO2 111 H (83-108) mmHg ABG HCO3 28 H (21-25) mmol/L ABG Total CO2 30 H (19-24) mmol/L Sodium 134 L (137-145) mmol/L BUN 41 H (9-20) mg/dL Glucose 128 H (74-99) mg/dL POC Glucose (mg/dL) 146 H (70-110) mg/dL Calcium 7.3 L (8.4-10.2) mg/dL 08/31/23 Range/Units 11:52 WBC (3.8-10.6) k/uL RBC (4.30-5.90) m/uL Hgb (13.0-17.5) gm/dL Hct (39.0-53.0) % MCHC (31.0-37.0) g/dL RDW (11.5-15.5) % Neutrophils # (Manual) (1.3-7.7) k/uL ABG pH (7.35-7.45) ABG pCO2 (35-45) mmHg ABG pO2 (83-108) mmHg ABG HCO3 (21-25) mmol/L ABG Total CO2 (19-24) mmol/L Sodium (137-145) mmol/L BUN (9-20) mg/dL Glucose (74-99) mg/dL POC Glucose (mg/dL) 152 H (70-110) mg/dL Calcium (8.4-10.2) mg/dL Microbiology - Last 24 Hours (Table) 08/27/23 13:00 Anaerobic Culture - Final Other - Other Anaerobic Gm Negative Bacilli Anaerobic Gm Negative Bacilli#2 08/28/23 09:12 Blood Culture - Preliminary Blood 08/27/23 14:15 Gram Stain - Final Sputum Sputum Culture - Final Klebsiella oxytoca
[2023-08-31] MEDS: POTASSIUM CHLORIDE 10 MEQ in WATER FOR INJECTION 1 100ML.BAG IVPB SCH (14:41)
[2023-08-31 18:25] LABS: Glucose,Whole Blood 124 mg/dL (70-110)
--- NOTE | 2023-08-31 19:35 | P.PN ---
Subjective Progress Note Date: 08/31/23 CHF The patient is a pleasant 72-year-old gentleman with a past medical history significant for coronary artery disease and cardiomyopathy and congestive heart failure who was admitted to the hospital with small bowel obstruction. He developed heart failure. The echo showed severe cardiomyopathy with EF around 20%. August 26, 2023 The patient was seen and evaluated this morning. He has severe left upper extremity edema. I am going to start the patient on Lasix IV at the small dose 20 mg twice daily and continue monitoring the kidney function and electrolytes and also obtain a venous duplex study to rule out DVT. Meanwhile continue the current medical regimen. He cannot take any oral medication at this point. The physical examination is remarkable for severe left upper extremity edema. August 27, 2023 The patient was seen in the intensive care unit. He underwent exploratory laparotomy and lysis of adhesion earlier this morning. Currently he is intubated on mechanical ventilation. Hemodynamically he is unstable and requiring small dose of norepinephrine. He is not receiving any oral medication. He is maintaining normal sinus mechanism. From the cardiovascular standpoint of view, we will continue the current medical regimen and consider adding dobutamine giving that he does have severe cardiomyopathy with an ejection fraction of 20%. The chest x-ray and blood work were reviewed. The examination is remarkable for the patient being intubated on mechanical ventilation with diminished breathing sounds bilaterally and no edema was noted. 08/28/2023 Patient is on norepinephrine, vasopressin and dobutamine drip. He continues to be on ventilator support failing weaning trial today. 08/29/2023 Patient is on norepinephrine, vasopressin and dobutamine. Patient continues to be on ventilator support and failed weaning trial. The abdomen has a wound VAC in place. 08/30/23 BP 106/49, heart rate 112 bpm, sinus tachycardia, Hemoglobin 10, WBC 34, BUN 36, creatinine 0.8 Patient is still on norepinephrine, vasopressin and dobutamine. Patient continues to be on ventilator support. He failed weaning trial today as well. Abdominal wound VAC is in place. Very poor clinical improvement 08/31/23 We have not been able to titrate the patient down from the 3 pressors norepinephrine vasopressin and dobutamine. BP 113/51, heart rate 103, WBC 28, hemoglobin eight 9.9. WBC has trended over last few days. Hemoglobin has gradually declined. Nutrition by TPN Creatinine 0.8 pH 7.3, respiratory acidosis 3 L urine output yesterday. Overall in positive fluid balance. On exam Sinus rhythm S1-S2 audible, regular pulses, no significant murmurs, On mechanical ventilator support, diminished breath sounds bilaterally, no edema Abdominal guarding present Assessment Coronary artery disease Small bowel obstruction Status post abdominal surgery as described above Severe cardiomyopathy Bilateral pleural effusion Status post pleurocentesis Left upper extremity edema Multiple comorbid conditions Plan As blood pressure is holding up better, increase Lasix to 40 mg IV twice daily as patient is in significant positive fluid balance. Continue dobutamine given the severe cardiomyopathy Continue monitor the kidney function and electrolytes and hemoglobin Continue monitor the urine output Considering patient's severe cardiomyopathy, s/p surgery, sepsis and poor clinical response to current medical therapy, Overall patient's prognosis is very poor. I Objective - Vital Signs Vital signs: Vital Signs Temp 97.8 F 08/31/23 16:00 Pulse 107 H 08/31/23 18:15 Resp 20 08/31/23 18:15 BP 135/63 08/29/23 06:15 Pulse Ox 96 08/31/23 18:15 FiO2 40 08/31/23 16:00 Intake & Output 08/31/23 08/31/23 09/01/23 06:59 18:59 06:59 Intake Total 0838.447 2595.761 Output Total 1355 1975 Balance 476.311 549.761 Weight 84.5 kg Intake: IV 716 662 KVO 50 40 NS 600 550 NS Pressure Pack 66 72 Intake, IV Titration 2253.757 1183.761 Amount DOBUTamine DRIP 500 mg In 250 Dextrose/Water 1 250ml. bag @ 5 MCG/KG/MIN 11.31 mls/hr IV .Q22H7M [facility] Rx# :[id number] Meropenem 1 gm In Sodium 200 200 Chloride 0.9% 100 ml @ 33 .3 mls/hr IVPB Q8H [facility] Rx #:[id number] Mvi, Adult No.4 with Vit 780 780 K 10 ml Trace (Conc-1Ml/ Dose) 1 ml Sodium Acetate 60 meq In Amino Acid 5%- D20w+Lytes*E* 1,000 ml @ 65 mls/hr IV .BY DURATION KYLE Rx#:[id number] Norepinephrine 32 mg In 33.311 278.595 Sodium Chloride 0.9% 218 ml @ 0.4 MCG/KG/MIN 14. 138 mls/hr IV .[id number] [facility]YLE Rx#:[id number] Potassium Chloride 10 meq 200 In Water For Injection 1 100ml.bag @ 100 mls/hr IVPB Q1H [facility] Rx#: [id number] Vasopressin 20 unit In 102 44.166 Sodium Chloride 0.9% 50 ml @ 0.04 UNITS/MIN 6.12 mls/hr IV .Q8H20M [facility] Rx# :[id number] propofoL 1,000 mg In 100 Empty Bag 1 bag @ 15 MCG/ KG/MIN 6.255 mls/hr IV . Q16H [facility]YLE Rx#:[id number] Other 10 Output: Gastric Drainage 300 50 Urine 1055 1925 Other: Voiding Method Indwelling Catheter Indwelling Catheter ABP, PAP, CO, CI - Last Documented Arterial Blood Pressure 124/55 - Labs CBC & Chem 7: 08/31/23 04:40 08/31/23 13:39 Labs: Abnormal Lab Results - Last 24 Hours (Table) 08/31/23 08/31/23 08/31/23 Range/Units 00:56 04:40 04:40 WBC 28.7 H (3.8-10.6) k/uL RBC 3.45 L (4.30-5.90) m/uL Hgb 9.9 L (13.0-17.5) gm/dL Hct 32.0 L (39.0-53.0) % MCHC 30.9 L (31.0-37.0) g/dL RDW 15.9 H (11.5-15.5) % Neutrophils # (Manual) 26.60 H (1.3-7.7) k/uL ABG pH (7.35-7.45) ABG pCO2 (35-45) mmHg ABG pO2 (83-108) mmHg ABG HCO3 (21-25) mmol/L ABG Total CO2 (19-24) mmol/L Sodium 134 L (137-145) mmol/L BUN 41 H (9-20) mg/dL Glucose 128 H (74-99) mg/dL POC Glucose (mg/dL) 138 H (70-110) mg/dL Calcium 7.3 L (8.4-10.2) mg/dL 08/31/23 08/31/23 08/31/23 Range/Units 05:30 06:01 11:52 WBC (3.8-10.6) k/uL RBC (4.30-5.90) m/uL Hgb (13.0-17.5) gm/dL Hct (39.0-53.0) % MCHC (31.0-37.0) g/dL RDW (11.5-15.5) % Neutrophils # (Manual) (1.3-7.7) k/uL ABG pH 7.32 L (7.35-7.45) ABG pCO2 54 H (35-45) mmHg ABG pO2 111 H (83-108) mmHg ABG HCO3 28 H (21-25) mmol/L ABG Total CO2 30 H (19-24) mmol/L Sodium (137-145) mmol/L BUN (9-20) mg/dL Glucose (74-99) mg/dL POC Glucose (mg/dL) 146 H 152 H (70-110) mg/dL Calcium (8.4-10.2) mg/dL 08/31/23 Range/Units 18:24 WBC (3.8-10.6) k/uL RBC (4.30-5.90) m/uL Hgb (13.0-17.5) gm/dL Hct (39.0-53.0) % MCHC (31.0-37.0) g/dL RDW (11.5-15.5) % Neutrophils # (Manual) (1.3-7.7) k/uL ABG pH (7.35-7.45) ABG pCO2 (35-45) mmHg ABG pO2 (83-108) mmHg ABG HCO3 (21-25) mmol/L ABG Total CO2 (19-24) mmol/L Sodium (137-145) mmol/L BUN (9-20) mg/dL Glucose (74-99) mg/dL POC Glucose (mg/dL) 124 H (70-110) mg/dL Calcium (8.4-10.2) mg/dL Microbiology - Last 24 Hours (Table) 08/28/23 09:12 Blood Culture - Preliminary Blood 08/27/23 13:00 Anaerobic Culture - Final Other - Other Anaerobic Gm Negative Bacilli Anaerobic Gm Negative Bacilli#2
[2023-08-31] MEDS: FUROSEMIDE 10 MG/ML 4 ML VIAL IV SCH (20:53)
[2023-08-31] MEDS: HYDROcodone/APAP 5-325MG 1 EACH TAB PO PRN (20:53)
[2023-09-01 00:20] LABS: Glucose,Whole Blood 119 mg/dL (70-110)
[2023-09-01 04:19] LABS: African American GFR (CKD) >90 (>60 ml/min/1.73 sqM); Anion Gap 4 mmol/L; Blood Urea Nitrogen 46 mg/dL (9-20); Calcium 7.3 mg/dL (8.4-10.2); Carbon Dioxide 29 mmol/L (22-30); Chloride 105 mmol/L (98-107); Glucose 128 mg/dL (74-99); Magnesium 2.2 mg/dL (1.6-2.3); Non-African American GFR(CKD) >90 (>60 ml/min/1.73 sqM); Phosphorus 3.3 mg/dL (2.5-4.5); Potassium 3.5 mmol/L (3.5-5.1); Sodium 138 mmol/L (137-145)
[2023-09-01 04:34] LABS: Anisocytosis Slight; Basophils # (A) 0.1 k/uL (0-0.2); Basophils % (A) 0 %; Eosinophils # (A) 0.1 k/uL (0-0.7); Eosinophils % (A) 1 %; HCT 30.1 % (39.0-53.0); HGB 9.4 gm/dL (13.0-17.5); Hypochromasia Moderate; Lymphocytes # (A) 0.6 k/uL (1.0-4.8); Lymphocytes % (A) 4 %; MCH 28.5 pg (25.0-35.0); MCHC 31.1 g/dL (31.0-37.0); MCV 91.6 fL (80.0-100.0); Mean Platelet Volume 10.3; Monocytes # (A) 0.9 k/uL (0-1.0); Monocytes % (A) 5 %; Neutrophils # (A) 15.4 k/uL (1.3-7.7); Neutrophils % (A) 90 %; Platelet Count 235 k/uL (150-450); RBC 3.28 m/uL (4.30-5.90); RDW 16.2 % (11.5-15.5); WBC 17.1 k/uL (3.8-10.6)
[2023-09-01] MEDS: POTASSIUM CHLORIDE 20 MEQ in WATER FOR INJECTION 1 100ML.BAG IVPB SCH (04:57)
[2023-09-01 06:07] LABS: ABG Base Excess 7.3 mmol/L; ABG HCO3 32 mmol/L (21-25); ABG PCO2 49 mmHg (35-45); ABG PH 7.42 (7.35-7.45); ABG PO2 85 mmHg (83-108); ABG TCO2 33 mmol/L (19-24); Allen Test Performed? Yes
[2023-09-01 06:13] LABS: Glucose,Whole Blood 129 mg/dL (70-110)
--- NOTE | 2023-09-01 11:29 | XR ---
EXAMINATION TYPE: XR chest 1V portable DATE OF EXAM: 09/01/2023 Comparison: 08/31/2023 Clinical History: 72-year-old male Ventilator/NG tube Findings: Left anterior chest wall ICD generator with right ventricular lead. ET tube tip at the medial clavicu lar heads. NG tube courses below the diaphragm. Right PICC tip lower SVC. Right IJ CVC tip cavoatrial junction. Median sternotomy wires and post-CABG clips. I'm going interstitial and bilateral hazy [place] as well as moderate bilateral pleural effusions. Impression: Ongoing CHF with interstitial pulmonary edema. Ongoing moderate bilateral pleural effusions with [place] atelectasis and/or consolidation.
--- NOTE | 2023-09-01 11:58 | P.PN ---
Subjective Progress Note Date: 09/01/23 Principal diagnosis: Acute small bowel obstruction I was asked to evaluate this patient regarding bilateral pleural effusions. The patient was admitted on 08/20/2023 for complaints of nausea and emesis. The patient is known to me from a previous hospitalization between 08/01/2023 and 08/17/2023. At that time, the patient was quite ill and he was seen and evaluated in the intensive care unit for shock/hypotension which was thought to be septic in nature. At time, the patient also had ileus/small bowel obstruction and ischemic colitis and the patient was treated conservatively and following his discharge he was tolerating full liquid diet but not regular.. Septic shock was highly suspected and the patient is immunocompromised due to his previous splenectomy. The patient was treated and the patient was discharged to be readmitted after a short period of time. He is known to have severe cardiomyopathy with an ejection fraction of 30 to 35%. He has coronary artery disease with previous MN and previous coronary bypass surgery. He also has bilateral pleural effusion and we have performed a right-sided thoracentesis on this patient on 08/10/2023 and based on that pleural fluid analysis, the patient had a transudate with low LDH and protein in the pleural fluid cytology collected was negative for malignancy. Note that, at that time, the patient had a total of 1.2 L of pleural fluid aspirated from the right lung without any complications. He is also known to have history of Hodgkin's lymphoma with a previous splenectomy followed by chemoradiation therapy this was performed in 1976 in 1977. He is known to have prostate cancer, hypothyroidism, hyperlipide alvino. During this current admission, the patient was seen and evaluated by general surgery. Regarding his progressive abdominal distention and nausea and emesis. The patient during this current admission underwent a small bowel follow-through and the patient was found to have findings suspicious for partial versus complete obstruction. Based on that, the patient is currently being considered for surgical exploration. He was supposed to go for surgery today and there was concern about his respiratory status as the patient had developed also bilateral pleural effusions. Based on that, pulmonary consultation was requested. He currently has an NG tube for decompression. He also has TPN for nutritional support. He is not receiving any form of antibiotics. He remains on oral Diflucan only. His white cell count is at 12 with a hemoglobin 12.5 and a platelet count of 369. BUN is at 20 with a creatinine 0.7. Sodium is at 139. Most recent echocardiogram that was done today showed impairment of LV function with an ejection fraction of 25 to 30%. There was also inferior wall hypoki nesis and moderate MR and moderate aortic regurgitation and moderate to severe tricuspid regurgitation. The chest x-ray from today showing bilateral pleural effusion slightly worse on the left. The patient has an NG tube in place. On today's evaluation of 2023, the patient is being seen for a follow-up he is calm and comfortable on room air oxygen. I performed a left-sided thoracentesis on this patient yesterday with a total of 1.2 L of fluid drained. The right side will be done today as the patient is being prepped and optimized for surgery. He is still NPO. He has an NG tube in place. Output is still active. Abdomen is distended. It is not tender. Postprocedure chest x-ray s howed no evidence of any pneumothorax. There is residual right-sided pleural effusion. BUN is at 21 with a creatinine of 0.7. Sodium level is at 136 and the patient remains on TPN for nutritional support. No other significant events overnight. 08/27/2023, the patient is being seen in follow-up. The patient was taken to the operating room and the patient underwent expiratory laparotomy and extensive lysis of adhesions was done. Decompression of the bowel was done with closure and this involves a decompression colotomy with closure and this involved the transverse colon. Peritoneal lavage was done with a total of 3 L. The incision was closed and a wound VAC was applied. Postop, the patient was kept intubated on mechanical ventilator and he was transferred to the intensive care unit. He was having some difficulties with hypotension preoperatively and he did have short runs of atrial fibrillation. His current rhythm is sinus. He is currently on propofol running at 25 mcg/kg/min. The patient is hemodynamically hypotensive and he is on norepinephrine at 0.08 mcg/kg/min. He was given a total of 1.5 L of fluid in the operating room. Another 1 L bolus will be given to him right now. He is maintenance fluid to be increased up to 150 cc an hour. He is currently on assist-control of 14, tidal volume of 400, FiO2 is 100% with a PEEP of 5 and the patient's pH was at 7.4 with a pCO2 of 47 and pO2 of more than 100. FiO2 was weaned down to 40%.. Chest x-ray showed NG tube being in good location. There is trace pleural effusion and there is a triple-lumen catheter in the right IJ which seems to be in good location for now. The blood work from this morning showed a BUN of 31 with a creatinine of 0.7 and his sodium level was at 134 and the potassium level was at 3.4. He is well sedated and synchronous with mechanical ventilator. He remains on TPN for nutritional support. No other significant issues for now. The Lopressor disaster will be placed on hold for now. Will also hold on his Lasix. Patient was reevaluated today on 08/28/2023, patient remains in the ICU, intubated and mechanically ventilated. Patient is status post expiratory laparotomy and extensive lysis of adhesions was done. Postoperative day #1. Remains intubated and mechanically ventilated. Patient is on assist-control rate of 16 tidal volume 400 FiO2 40% and PEEP of 5. ABG showed a pO2 of 99 pCO2 42 pH of 7.32. Blood pressure is marginal in spite of maximal therapy with norepinephrine at 0.5 mcg/kg/min, he is also on vasopressin at 0.03 units/min, patient is receiving propofol at 35 mg/kg/min, IV fluid is running at 150 cc/h. Patient is also receiving TPN, and he has received albumin. Intermittently the patient was receiving Lasix which I placed on hold because of his marginal blood pressure. Antibiotics graf patient remains on Zosyn and Diflucan. Apparently the patient was found to have fecal peritonitis when he underwent exploratory laparotomy. WBC count today is 21.5 hemoglobin 11.9. ABG showed a pO2 of 99 pCO2 42 pH of 7.32 basic metabolic profile is normal renal profile is normal chest x-ray is showing evidence of small bilateral pleural effusions and I suspect mild interstitial edema echocardiogram on this admission showed LV dysfunction, patient may improve with dobutamine, and I will try to go on a trial of dobutamine at 2.5 mcg/kg/min Patient was reevaluated today on 11/16, remains in the ICU intubated and mechanically ventilated. Patient is quite unstable, he is hemodynamically doing poorly, requiring multiple pressors and inotropes. He is now on norepinephrine at 0.5 mcg/kg/min/maxed vasopressin at 0.04 units/min, max patient is on epinep hrine at 0.05 mcg/kg/min being titrated, he is also on propofol, dobutamine 5 mcg/kg/min patient is receiving TPN, and is also on Merrem. ABG this morning showed a pO2 of 79 pCO2 39 pH of 7.36, and this is on assist-control rate of 16 tidal volume 400 FiO2 40% and PEEP of 5. Chest x-ray continues to show evidence of pulmonary edema, patient will definitely benefit from diuresis, however his blood pressure seems to be an issue, may gently diurese today. Otherwise his pulmonary status may deteriorate and the patient may end up requiring higher FiO2 and higher PEEP patient has continued leukocytosis with WBC count of 35.9 hemoglobin 11 basic metabolic profile is normal renal profile is normal condition graf, patient is on TPN at 65 cc/h. Propofol is at 30 mcg/kg/min Patient was reevaluated today on 08/30/2023, remains in the ICU, intubated and mechanically ventilated. Patient is on assist-control rate of 16 tidal volume 400 FiO2 40% and PEEP of 5. Chest x-ray is showing worsening bilateral pleural effusions and pulmonary edema, hence Lasix was given today. Patient remains on pressors and inotropes including norepinephrine, vasopressin, dobutamine, he is off epinephrine. Overall the patient is about the same, he is sedated, on propofol and is also on fentanyl. There is pulmonary edema, Lasix was given, and this will be given 40 mg IV push twice daily for biotics graf patient remains on Merrem, nutrition graf patient is receiving TPN ABG showed a pO2 of 111 pCO2 44 pH of 7.34. Basic metabolic profile is normal, CBC is showing significant leukocytosis with WBC count of 34.1 hemoglobin is 10.3 renal profile is normal with BUN of 36 creatinine 0.8 overall the patient is not doing well, remains on propofol and he is not ready for any form of weaning trials at this point Patient was reevaluated today on 08/31/2023, remains in the ICU, remains intubated and mechanically ventilated. Patient is on assist-control rate of 16 tidal volume 400 FiO2 45% PEEP of 5 ABG showed a pO2 of 111 pCO2 54 pH of 7.32, hence his rate was increased up to 18 and his FiO2 was cut down to 40%. Patient remains on multiple drips including vasopressin at 0.04, norepinephrine at 0.35 mcg/kg/min, dobutamine at 5 mg/kg/min propofol at 30 mcg/kg/min he is also on TPN at 65 cc/h IV fluid 50 cc/h of 0.9 normal saline. Remains on Lasix at 40 mg IV push twice daily. Chest x-ray continues to show evidence of pulmonary edema with bilateral pleural effusions, however the patient is responding to Lasix and he continues to have significant and good urine output. The pathology on his bowel tissue came back showing evidence of metastatic disease to the GI tract, most likely the primary source is either pancreatic or hepatobiliary. Family was notified about the diagnosis by Dr. Adnino on the case WBC count today is 28.7 hemoglobin is 9.9. Platelets are 264. Basic metabolic profile is normal renal profile is normal bicarb is 25, chest x-ray continues to show evidence of ongoing congestive heart failure and moderate bilateral pleural effusions Patient was evaluated today on 09/01/2023, remains in the ICU, intubated and mechanically ventilated. Patient remains on assist-control rate of 18 tidal volume 400 FiO2 40% and PEEP of 5 ABG showed a pO2 of 85 pCO2 49 pH of 7.42. Hence no ventilator changes were made today. Chest x-ray continues to show evidence of pulmonary edema with bilateral pleural effusions patient remains on propofol at 20 mcg/kg/min dobutamine 5 mcg/kg/min norepinephrine at 0.11 mcg/kg/min vasopressin at 0.04 units/min patient is on TPN at 65 cc/h 0.9 normal saline at 50 cc/h remains on Lasix at 40 mg IV push twice daily and on Merrem not much of a bladder changer the last 24 hours, patient is basically about the same, on low-dose of sedation, patient opens his eyes but does not follow any instructions WBC count is 17.1 hemoglobin is 9.4. Basic metabolic profile is normal, BUN is 46 creatinine is 0.74 Objective - Vital Signs Vital signs: Vital Signs Temp 97.8 F 09/01/23 08:00 Pulse 107 H 09/01/23 10:00 Resp 24 09/01/23 10:00 BP 135/63 08/29/23 06:15 Pulse Ox 94 L 09/01/23 10:00 FiO2 40 09/01/23 10:55 Intake & Output 08/31/23 09/01/23 09/01/23 18:59 06:59 18:59 Intake Total 3565.761 2034.861 548.367 Output Total 1974 1850 225 Balance 1590.761 184.861 323.367 Weight 86.9 kg Intake: IV 662 1382 368 KVO 40 60 5 Mvi, Adult No.4 with Vit 650 195 K 10 ml Trace (Conc-1Ml/ Dose) 1 ml Sodium Acetate 60 meq In Amino Acid 5%- D20w+Lytes*E* 1,000 ml @ 65 mls/hr IV .BY DURATION [facility] Rx#:[id number] NS 550 600 150 NS Pressure Pack 72 72 18 Intake, IV Titration 2893.761 652.861 180.367 Amount DOBUTamine DRIP 500 mg In 250 Dextrose/Water 1 250ml. bag @ 5 MCG/KG/MIN 11.31 mls/hr IV .Q22H7M [facility] Rx# :[id number] Meropenem 1 gm In Sodium 200 100 Chloride 0.9% 100 ml @ 33 .3 mls/hr IVPB Q8H [facility] Rx #:[id number] Mvi, Adult No.4 with Vit 1821 130 K 10 ml Trace (Conc-1Ml/ Dose) 1 ml Sodium Acetate 60 meq In Amino Acid 5%- D20w+Lytes*E* 1,000 ml @ 65 mls/hr IV .BY DURATION [facility] Rx#:[id number] Norepinephrine 32 mg In 278.595 72.159 5.897 Sodium Chloride 0.9% 218 ml @ 0.4 MCG/KG/MIN 14. 138 mls/hr IV .V94H91G [facility] Rx#:[id number] Potassium Chloride 10 meq 200 In Water For Injection 1 100ml.bag @ 100 mls/hr IVPB Q1H [facility] Rx#: [id number] Potassium Chloride 20 meq 100 100 In Water For Injection 1 100ml.bag @ 50 mls/hr IVPB Q2H [facility] Rx#: [id number] Vasopressin 20 unit In 44.166 95.37 Sodium Chloride 0.9% 50 ml @ 0.04 UNITS/MIN 6.12 mls/hr IV .Q8H20M [facility] Rx# :[id number] propofoL 1,000 mg In 100 155.332 74.470 Empty Bag 1 bag @ 15 MCG/ KG/MIN 6.255 mls/hr IV . Q16H [facility] Rx#:[id number] Oral 0 Other 10 Output: Gastric Drainage 50 Urine 5 0 225 Other: Voiding Method Indwelling Catheter Indwelling Catheter Indwelling Catheter ABP, PAP, CO, CI - Last Documented Arterial Blood Pressure 120/55 - Exam GENERAL: Revealed 72-year-old white male looks frail, cachectic, intubated and mechanically ventilated Head: Atraumatic, normocephalic, endotracheal tube and orogastric tubes are intact HEENT: No sclera icterus. Extraocular movements grossly intact. Moist buccal mucosa. Head is atraumatic, normocephalic. No nasal drainage. NECK: Supple without lymphadenopathy. CHEST: Diminished breath sounds and crackles at the bases CARDIOVASCULAR: Normal S1-S2, no S3 gallop, 2/6 systolic murmur throughout the precordium ABDOMEN: Distended. Abdomen is firm, nontender. Surgical wound site is clean. Wound VAC noted. No bowel sounds. No direct tenderness or rebound tenderness or guarding. MUSCULOSKELETAL: No clubbing, 1+ bipedal edema, no cyanosis. NEUROLOGIC: Could not assess patient is sedated and mechanically ventilated. PSYCH: Could not assess SKIN: No rashes - Labs CBC & Chem 7: 09/01/23 03:45 09/01/23 03:45 Labs: Abnormal Lab Results - Last 24 Hours (Table) 08/31/23 08/31/23 09/01/23 Range/Units 10:15 18:24 00:19 WBC (3.8-10.6) k/uL RBC (4.30-5.90) m/uL Hgb (13.0-17.5) gm/dL Hct (39.0-53.0) % RDW (11.5-15.5) % Neutrophils # (1.3-7.7) k/uL Lymphocytes # (1.0-4.8) k/uL ABG pCO2 (35-45) mmHg ABG HCO3 (21-25) mmol/L ABG Total CO2 (19-24) mmol/L BUN (9-20) mg/dL Glucose (74-99) mg/dL POC Glucose (mg/dL) 124 H 119 H (70-110) mg/dL Calcium (8.4-10.2) mg/dL CA 19-9 Antigen 35.8 H (0.0-34.9) U/mL 09/01/23 09/01/23 09/01/23 Range/Units 03:45 03:45 06:03 WBC 17.1 H (3.8-10.6) k/uL RBC 3.28 L (4.30-5.90) m/uL Hgb 9.4 L (13.0-17.5) gm/dL Hct 30.1 L (39.0-53.0) % RDW 16.2 H (11.5-15.5) % Neutrophils # 15.4 H (1.3-7.7) k/uL Lymphocytes # 0.6 L (1.0-4.8) k/uL ABG pCO2 49 H (35-45) mmHg ABG HCO3 32 H (21-25) mmol/L ABG Total CO2 33 H (19-24) mmol/L BUN 46 H (9-20) mg/dL Glucose 128 H (74-99) mg/dL POC Glucose (mg/dL) (70-110) mg/dL Calcium 7.3 L (8.4-10.2) mg/dL CA 19-9 Antigen (0.0-34.9) U/mL 09/01/23 Range/Units 06:12 WBC (3.8-10.6) k/uL RBC (4.30-5.90) m/uL Hgb (13.0-17.5) gm/dL Hct (39.0-53.0) % RDW (11.5-15.5) % Neutrophils # (1.3-7.7) k/uL Lymphocytes # (1.0-4.8) k/uL ABG pCO2 (35-45) mmHg ABG HCO3 (21-25) mmol/L ABG Total CO2 (19-24) mmol/L BUN (9-20) mg/dL Glucose (74-99) mg/dL POC Glucose (mg/dL) 129 H (70-110) mg/dL Calcium (8.4-10.2) mg/dL CA 19-9 Antigen (0.0-34.9) U/mL Microbiology - Last 24 Hours (Table) 08/28/23 09:12 Blood Culture - Preliminary Blood Assessment and Plan Assessment: Impression: Acute hypoxic respiratory failure secondary to abdominal sepsis and septic shock Complete small bowel obstruction requiring exploratory laparotomy lysis of adhesions colostomy and decompression postoperative day #5 Acute fecal peritonitis. Hypotension secondary to sepsis septic shock and cardiogenic also in nature Severe LV dysfunction with ejection fraction of 20% Mild to moderate aortic regurgitation and tricuspid regurgitation with pulmonary hypertension Acute systolic congestive heart failure Underlying coronary artery disease and previous CABG History of Hodgkin's lymphoma and previous splenectomy History of prostate cancer History of atrial fibrillation presently in sinus rhythm History of hypothyroidism Dyslipidemia Bilateral pleural effusions requiring thoracentesis, multiple times. Transudative in nature. Cardiogenic in nature. 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 Recommendation: Continue ventilatory support Continue hemodynamic support including norepinephrine, vasopressin, dobutamine, working on titrating and possibly stopping norepinephrine. Continue TPN.Nutritional support Continue GI and DVT prophylaxis Continue antibiotic patient is now on Merrem Continue to monitor in ICU Prognosis remains extremely poor and guarded Critical care time is over 30 Will continue to follow Time with Patient: Greater than 30
--- NOTE | 2023-09-01 14:22 | P.PN ---
Subjective Progress Note Date: 09/01/23 CHIEF COMPLAINT: SBO HISTORY OF PRESENT ILLNESS: Patient admitted to the hospital with small bowel obstruction. Currently ICU intubated and on mechanical ventilation. He is postop day #5 status post exploratory laparotomy with lysis of adhesions, decompressive colotomy with closure, transverse colon, peritoneal lavage. 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 They are decreasing the Levophed. Afebrile. Mildly tachycardic. WBC is down from 28.7-17.1 PHYSICAL EXAM: VITAL SIGNS: Reviewed GENERAL: no acute distress. HEENT: No sclera icterus. Extraocular movements grossly intact. Moist buccal mucosa. Head is atraumatic, normocephalic. Hears conversational speech. No nasal drainage. NECK: Supple without lymphadenopathy. CHEST: Non-labored respirations and equal bilateral excursions. CARDIOVASCULAR: Palpable 2+ radial pulses. ABDOMEN: Distended. Prevana wound vac intact MUSCULOSKELETAL: No clubbing or cyanosis. NEUROLOGIC: No focal or lateralizing signs. Cranial nerves II through XII grossly intact. PSYCH: Intubated and sedated ASSESSMENT: 1. Small bowel obstruction due to adhesions 2. Paroxysmal atrial fibrillation 3. History of Hodgkin's lymphoma status post splenectomy including chemoradiation 4. History of prostate cancer status postradiation 5. Bilateral pleural effusion 6. Unintentional weight loss 7. Ischemic cardiomyopathy 8. Moderate to severe protein malnutrition 9. 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 History of ischemic colitis 12. Fecal peritonitis 13. Expected ileus due to cardiogenic shock and septic shock 14. 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 Andino did discuss pathology results with patient's son. -CODE STATUS is no code -Awaiting family decision regarding possible comfort care -Continue ICU management -Continue supportive care -Continue TPN for nutrition support -Continue antibiotics -DVT prophylaxis Lovenox Physician Flight Attendant/Inflight Manager note has been reviewed by physician. Signing provider agrees with the documented findings, assessment, and plan of care. Objective - Vital Signs Vital signs: Vital Signs Temp 97.9 F 09/01/23 12:00 Pulse 112 H 09/01/23 12:45 Resp 19 09/01/23 12:45 BP 135/63 08/29/23 06:15 Pulse Ox 93 L 09/01/23 12:45 FiO2 40 09/01/23 12:00 Intake & Output 08/31/23 09/01/23 09/01/23 18:59 06:59 18:59 Intake Total 3565.761 2034.861 911.367 Output Total 1974 1850 1225 Balance 1590.761 184.861 -313.633 Weight 86.9 kg Intake: IV 662 1382 731 KVO 40 60 5 Mvi, Adult No.4 with Vit 650 390 K 10 ml Trace (Conc-1Ml/ Dose) 1 ml Sodium Acetate 60 meq In Amino Acid 5%- D20w+Lytes*E* 1,000 ml @ 65 mls/hr IV .BY DURATION [facility] Rx#:[id number] NS 550 600 300 NS Pressure Pack 72 72 36 Intake, IV Titration 2893.761 652.861 180.367 Amount DOBUTamine DRIP 500 mg In 250 Dextrose/Water 1 250ml. bag @ 5 MCG/KG/MIN 11.31 mls/hr IV .Q22H7M [facility] Rx# :[id number] Meropenem 1 gm In Sodium 200 100 Chloride 0.9% 100 ml @ 33 .3 mls/hr IVPB Q8H [facility] Rx #:[id number] Mvi, Adult No.4 with Vit 1821 130 K 10 ml Trace (Conc-1Ml/ Dose) 1 ml Sodium Acetate 60 meq In Amino Acid 5%- D20w+Lytes*E* 1,000 ml @ 65 mls/hr IV .BY DURATION [facility] Rx#:[id number] Norepinephrine 32 mg In 278.595 72.159 5.897 Sodium Chloride 0.9% 218 ml @ 0.4 MCG/KG/MIN 14. 138 mls/hr IV .[id number] [facility] Rx#:[id number] Potassium Chloride 10 meq 200 In Water For Injection 1 100ml.bag @ 100 mls/hr IVPB Q1H [facility] Rx#: [id number] Potassium Chloride 20 meq 100 100 In Water For Injection 1 100ml.bag @ 50 mls/hr IVPB Q2H [facility] Rx#: [id number] Vasopressin 20 unit In 44.166 95.37 Sodium Chloride 0.9% 50 ml @ 0.04 UNITS/MIN 6.12 mls/hr IV .Q8H20M [facility] Rx# :[id number] propofoL 1,000 mg In 100 155.332 74.470 Empty Bag 1 bag @ 15 MCG/ KG/MIN 6.255 mls/hr IV . Q16H [facility] Rx#:[id number] Oral 0 Other 10 Output: Gastric Drainage 50 Urine 1925 2330 1225 Other: Voiding Method Indwelling Catheter Indwelling Catheter Indwelling Catheter ABP, PAP, CO, CI - Last Documented Arterial Blood Pressure 119/46 - Labs CBC & Chem 7: 09/01/23 03:45 09/01/23 03:45 Labs: Abnormal Lab Results - Last 24 Hours (Table) 08/31/23 08/31/23 09/01/23 Range/Units 10:15 18:24 00:19 WBC (3.8-10.6) k/uL RBC (4.30-5.90) m/uL Hgb (13.0-17.5) gm/dL Hct (39.0-53.0) % RDW (11.5-15.5) % Neutrophils # (1.3-7.7) k/uL Lymphocytes # (1.0-4.8) k/uL ABG pCO2 (35-45) mmHg ABG HCO3 (21-25) mmol/L ABG Total CO2 (19-24) mmol/L BUN (9-20) mg/dL Glucose (74-99) mg/dL POC Glucose (mg/dL) 124 H 119 H (70-110) mg/dL Calcium (8.4-10.2) mg/dL CA 19-9 Antigen 35.8 H (0.0-34.9) U/mL 09/01/23 09/01/23 09/01/23 Range/Units 03:45 03:45 06:03 WBC 17.1 H (3.8-10.6) k/uL RBC 3.28 L (4.30-5.90) m/uL Hgb 9.4 L (13.0-17.5) gm/dL Hct 30.1 L (39.0-53.0) % RDW 16.2 H (11.5-15.5) % Neutrophils # 15.4 H (1.3-7.7) k/uL Lymphocytes # 0.6 L (1.0-4.8) k/uL ABG pCO2 49 H (35-45) mmHg ABG HCO3 32 H (21-25) mmol/L ABG Total CO2 33 H (19-24) mmol/L BUN 46 H (9-20) mg/dL Glucose 128 H (74-99) mg/dL POC Glucose (mg/dL) (70-110) mg/dL Calcium 7.3 L (8.4-10.2) mg/dL CA 19-9 Antigen (0.0-34.9) U/mL 09/01/23 Range/Units 06:12 WBC (3.8-10.6) k/uL RBC (4.30-5.90) m/uL Hgb (13.0-17.5) gm/dL Hct (39.0-53.0) % RDW (11.5-15.5) % Neutrophils # (1.3-7.7) k/uL Lymphocytes # (1.0-4.8) k/uL ABG pCO2 (35-45) mmHg ABG HCO3 (21-25) mmol/L ABG Total CO2 (19-24) mmol/L BUN (9-20) mg/dL Glucose (74-99) mg/dL POC Glucose (mg/dL) 129 H (70-110) mg/dL Calcium (8.4-10.2) mg/dL CA 19-9 Antigen (0.0-34.9) U/mL Microbiology - Last 24 Hours (Table) 08/28/23 09:12 Blood Culture - Preliminary Blood
[2023-09-01 14:52] LABS: Glucose,Whole Blood 84 mg/dL (70-110)
--- NOTE | 2023-09-01 15:56 | P.PN ---
Subjective Progress Note Date: 09/01/23 CHF The patient is a pleasant 72-year-old gentleman with a past medical history significant for coronary artery disease and cardiomyopathy and congestive heart failure who was admitted to the hospital with small bowel obstruction. He developed heart failure. The echo showed severe cardiomyopathy with EF around 20%. August 26, 2023 The patient was seen and evaluated this morning. He has severe left upper extremity edema. I am going to start the patient on Lasix IV at the small dose 20 mg twice daily and continue monitoring the kidney function and electrolytes and also obtain a venous duplex study to rule out DVT. Meanwhile continue the current medical regimen. He cannot take any oral medication at this point. The physical examination is remarkable for severe left upper extremity edema. August 27, 2023 The patient was seen in the intensive care unit. He underwent exploratory laparotomy and lysis of adhesion earlier this morning. Currently he is intubated on mechanical ventilation. Hemodynamically he is unstable and requiring small dose of norepinephrine. He is not receiving any oral medication. He is maintaining normal sinus mechanism. From the cardiovascular standpoint of view, we will continue the current medical regimen and consider adding dobutamine giving that he does have severe cardiomyopathy with an ejection fraction of 20%. The chest x-ray and blood work were reviewed. The examination is remarkable for the patient being intubated on mechanical ventilation with diminished breathing sounds bilaterally and no edema was noted. 08/28/2023 Patient is on norepinephrine, vasopressin and dobutamine drip. He continues to be on ventilator support failing weaning trial today. 08/29/2023 Patient is on norepinephrine, vasopressin and dobutamine. Patient continues to be on ventilator support and failed weaning trial. The abdomen has a wound VAC in place. 08/30/23 BP 106/49, heart rate 112 bpm, sinus tachycardia, Hemoglobin 10, WBC 34, BUN 36, creatinine 0.8 Patient is still on norepinephrine, vasopressin and dobutamine. Patient continues to be on ventilator support. He failed weaning trial today as well. Abdominal wound VAC is in place. Very poor clinical improvement 08/31/23 We have not been able to titrate the patient down from the 3 pressors norepine phrine vasopressin and dobutamine. BP 113/51, heart rate 103, WBC 28, hemoglobin eight 9.9. WBC has trended over last few days. Hemoglobin has gradually declined. Nutrition by TPN Creatinine 0.8 pH 7.3, respiratory acidosis 3 L urine output yesterday. Overall in positive fluid balance. 09/01/23 Patient is on 5 mcg dobutamine, norepinephrine 0.08 mcg and vasopressin 0.04 mcg. BP 110/50, sinus tachycardia WBC trended down to 18 from 28 yesterday. Hemoglobin is stable. Creatinine is stable. Nutrition by TPN. 3 L urine output yesterday tolerating IV diuretic well. Continues to be in positive fluid balance. On exam Sinus rhythm S1-S2 audible, regular pulses, no significant murmurs, On mechanical ventilator support, diminished breath sounds bilaterally, no edema Abdominal guarding present Assessment Coronary artery disease Small bowel obstruction Status post abdominal surgery as described above Severe cardiomyopathy Bilateral pleural effusion Status post pleurocentesis Left upper extremity edema Multiple comorbid conditions Plan As blood pressure is holding up better, and patient is in significant volume overload, will continue Lasix 40 mg IV twice daily and add metolazone 2.5 mg daily Continue dobutamine given the severe cardiomyopathy. Consider getting it off vasopressin as tolerated. Once vasopressin is turned off, will try weaning off norepinephrine. Considering patient's severe cardiomyopathy, diagnosis of pancreatic cancer, patient's overall prognosis is guarded. I had poor prognosis discussion with patient's family at bedside. They understand the poor prognosis and would like to continue hemodynamic support for next few days to see if patient can be weane d off pressors and ventilator. Objective - Vital Signs Vital signs: Vital Signs Temp 97.9 F 09/01/23 12:00 Pulse 112 H 09/01/23 12:45 Resp 19 09/01/23 12:45 BP 135/63 08/29/23 06:15 Pulse Ox 93 L 09/01/23 12:45 FiO2 40 09/01/23 15:38 Intake & Output 08/31/23 09/01/23 09/01/23 18:59 06:59 18:59 Intake Total 3565.761 3064.861 990.704 Output Total 1975 1850 1225 Balance 9649.834 9038.861 -234.296 Weight 86.9 kg 86.9 kg Intake: IV 662 1382 731 KVO 40 60 5 Mvi, Adult No.4 with Vit 650 390 K 10 ml Trace (Conc-1Ml/ Dose) 1 ml Sodium Acetate 60 meq In Amino Acid 5%- D20w+Lytes*E* 1,000 ml @ 65 mls/hr IV .BY DURATION KYLE Rx#:[id number] NS 550 600 300 NS Pressure Pack 72 72 36 Intake, IV Titration 2893.761 1682.861 259.704 Amount DOBUTamine DRIP 500 mg In 250 Dextrose/Water 1 250ml. bag @ 5 MCG/KG/MIN 11.31 mls/hr IV .Q22H7M KYLE Rx# :[id number] Meropenem 1 gm In Sodium 200 100 Chloride 0.9% 100 ml @ 33 .3 mls/hr IVPB Q8H KYLE Rx #:[id number] Mvi, Adult No.4 with Vit 1821 130 K 10 ml Trace (Conc-1Ml/ Dose) 1 ml Sodium Acetate 60 meq In Amino Acid 5%- D20w+Lytes*E* 1,000 ml @ 65 mls/hr IV .BY DURATION KYLE Rx#:[id number] Norepinephrine 32 mg In 278.595 72.159 35.764 Sodium Chloride 0.9% 218 ml @ 0.4 MCG/KG/MIN 14. 138 mls/hr IV .[id number] KYLE Rx#:[id number] Potassium Chloride 10 meq 200 In Water For Injection 1 100ml.bag @ 100 mls/hr IVPB Q1H KYLE Rx#: [id number] Potassium Chloride 20 meq 100 100 In Water For Injection 1 100ml.bag @ 50 mls/hr IVPB Q2H KYLE Rx#: [id number] Sodium Acetate 60 meq In 1030 Amino Acid 5%-D20w+Lytes* E* 1,000 ml @ 65 mls/hr IV .BY DURATION KYLE Rx#: [id number] Vasopressin 20 unit In 44.166 95.37 49.47 Sodium Chloride 0.9% 50 ml @ 0.04 UNITS/MIN 6.12 mls/hr IV .Q8H20M KYLE Rx# :[id number] propofoL 1,000 mg In 100 155.332 74.470 Empty Bag 1 bag @ 15 MCG/ KG/MIN 6.255 mls/hr IV . Q16H KYLE Rx#:[id number] Oral 0 Other 10 Output: Gastric Drainage 50 Urine 1925 1850 1225 Other: Voiding Method Indwelling Catheter Indwelling Catheter Indwelling Catheter ABP, PAP, CO, CI - Last Documented Arterial Blood Pressure 119/46 - Labs CBC & Chem 7: 09/01/23 03:45 09/01/23 03:45 Labs: Abnormal Lab Results - Last 24 Hours (Table) 08/31/23 08/31/23 09/01/23 Range/Units 10:15 18:24 00:19 WBC (3.8-10.6) k/uL RBC (4.30-5.90) m/uL Hgb (13.0-17.5) gm/dL Hct (39.0-53.0) % RDW (11.5-15.5) % Neutrophils # (1.3-7.7) k/uL Lymphocytes # (1.0-4.8) k/uL ABG pCO2 (35-45) mmHg ABG HCO3 (21-25) mmol/L ABG Total CO2 (19-24) mmol/L BUN (9-20) mg/dL Glucose (74-99) mg/dL POC Glucose (mg/dL) 124 H 119 H (70-110) mg/dL Calcium (8.4-10.2) mg/dL CA 19-9 Antigen 35.8 H (0.0-34.9) U/mL 09/01/23 09/01/23 09/01/23 Range/Units 03:45 03:45 06:03 WBC 17.1 H (3.8-10.6) k/uL RBC 3.28 L (4.30-5.90) m/uL Hgb 9.4 L (13.0-17.5) gm/dL Hct 30.1 L (39.0-53.0) % RDW 16.2 H (11.5-15.5) % Neutrophils # 15.4 H (1.3-7.7) k/uL Lymphocytes # 0.6 L (1.0-4.8) k/uL ABG pCO2 49 H (35-45) mmHg ABG HCO3 32 H (21-25) mmol/L ABG Total CO2 33 H (19-24) mmol/L BUN 46 H (9-20) mg/dL Glucose 128 H (74-99) mg/dL POC Glucose (mg/dL) (70-110) mg/dL Calcium 7.3 L (8.4-10.2) mg/dL CA 19-9 Antigen (0.0-34.9) U/mL 09/01/23 Range/Units 06:12 WBC (3.8-10.6) k/uL RBC (4.30-5.90) m/uL Hgb (13.0-17.5) gm/dL Hct (39.0-53.0) % RDW (11.5-15.5) % Neutrophils # (1.3-7.7) k/uL Lymphocytes # (1.0-4.8) k/uL ABG pCO2 (35-45) mmHg ABG HCO3 (21-25) mmol/L ABG Total CO2 (19-24) mmol/L BUN (9-20) mg/dL Glucose (74-99) mg/dL POC Glucose (mg/dL) 129 H (70-110) mg/dL Calcium (8.4-10.2) mg/dL CA 19-9 Antigen (0.0-34.9) U/mL Microbiology - Last 24 Hours (Table) 08/28/23 09:12 Blood Culture - Preliminary Blood
--- NOTE | 2023-09-01 16:12 | P.PN ---
Subjective Progress Note Date: 09/01/23 Principal diagnosis: Reason for follow-up is sepsis and fecal peritonitis Patient is a 72-year-old male with a past medical history significant for atrial fibrillation coronary artery disease hyperlipidemia [place] prostate cancer admitted to the hospital for bowel obstruction treated medically subsequently taken to the OR and the patient was noticed to have feculent john tonitis in this patient who is status post laparotomy with lysis of adhesion decompressive colectomy with closure. On today's evaluation that is 09/01/2023, Patient is afebrile patient is currently on the ventilator FiO2 at 40% no significant purulent secretions through the ET. Slowly being weaned off by the nursing staff no output Patient white count is down to 17.1, creatinine 0.74, blood culture negative Objective - Vital Signs Vital signs: Vital Signs Temp 97.8 F 09/01/23 08:00 Pulse 107 H 09/01/23 10:00 Resp 24 09/01/23 10:00 BP 135/63 08/29/23 06:15 Pulse Ox 94 L 09/01/23 10:00 FiO2 40 09/01/23 10:55 Intake & Output 08/31/23 09/01/23 09/01/23 18:59 06:59 18:59 Intake Total 3565.761 2034.861 548.367 Output Total 1975 1850 225 Balance 1590.761 184.861 323.367 Weight 86.9 kg Intake: IV 662 1382 368 KVO 40 60 5 Mvi, Adult No.4 with Vit 650 195 K 10 ml Trace (Conc-1Ml/ Dose) 1 ml Sodium Acetate 60 meq In Amino Acid 5%- D20w+Lytes*E* 1,000 ml @ 65 mls/hr IV .BY DURATION KYLE Rx#:[id number] NS 550 600 150 NS Pressure Pack 72 72 18 Intake, IV Titration 2893.761 652.861 180.367 Amount DOBUTamine DRIP 500 mg In 250 Dextrose/Water 1 250ml. bag @ 5 MCG/KG/MIN 11.31 mls/hr IV .Q22H7M [facility] Rx# :[id number] Meropenem 1 gm In Sodium 200 100 Chloride 0.9% 100 ml @ 33 .3 mls/hr IVPB Q8H [facility] Rx #:[id number] Mvi, Adult No.4 with Vit 1821 130 K 10 ml Trace (Conc-1Ml/ Dose) 1 ml Sodium Acetate 60 meq In Amino Acid 5%- D20w+Lytes*E* 1,000 ml @ 65 mls/hr IV .BY DURATION KYLE Rx#:[id number] Norepinephrine 32 mg In 278.595 72.159 5.897 Sodium Chloride 0.9% 218 ml @ 0.4 MCG/KG/MIN 14. 138 mls/hr IV .[id number] KYLE Rx#:[id number] Potassium Chloride 10 meq 200 In Water For Injection 1 100ml.bag @ 100 mls/hr IVPB Q1H KYLE Rx#: [id number] Potassium Chloride 20 meq 100 100 In Water For Injection 1 100ml.bag @ 50 mls/hr IVPB Q2H K[facility] Rx#: [id number] Vasopressin 20 unit In 44.166 95.37 Sodium Chloride 0.9% 50 ml @ 0.04 UNITS/MIN 6.12 mls/hr IV .Q8H20M [facility] Rx# :[id number] propofoL 1,000 mg In 100 155.332 74.470 Empty Bag 1 bag @ 15 MCG/ KG/MIN 6.255 mls/hr IV . Q16H KYLE Rx#:[id number] Oral 0 Other 10 Output: Gastric Drainage 50 Urine 1925 1850 225 Other: Voiding Method Indwelling Catheter Indwelling Catheter Indwelling Catheter ABP, PAP, CO, CI - Last Documented Arterial Blood Pressure 120/55 - Exam GENERAL DESCRIPTION: An elderly male intubated on the vent RESPIRATORY SYSTEM: Unlabored breathing , decreased breath sounds at bases HEART: S1 S2 regular rate and rhythm , ABDOMEN: Soft , no tenderness EXTREMITIES: No edema feet - Labs CBC & Chem 7: 09/01/23 03:45 09/01/23 15:23 Labs: Abnormal Lab Results - Last 24 Hours (Table) 08/31/23 08/31/23 09/01/23 Range/Units 10:15 18:24 00:19 WBC (3.8-10.6) k/uL RBC (4.30-5.90) m/uL Hgb (13.0-17.5) gm/dL Hct (39.0-53.0) % RDW (11.5-15.5) % Neutrophils # (1.3-7.7) k/uL Lymphocytes # (1.0-4.8) k/uL ABG pCO2 (35-45) mmHg ABG HCO3 (21-25) mmol/L ABG Total CO2 (19-24) mmol/L BUN (9-20) mg/dL Glucose (74-99) mg/dL POC Glucose (mg/dL) 124 H 119 H (70-110) mg/dL Calcium (8.4-10.2) mg/dL CA 19-9 Antigen 35.8 H (0.0-34.9) U/mL 09/01/23 09/01/23 09/01/23 Range/Units 03:45 03:45 06:03 WBC 17.1 H (3.8-10.6) k/uL RBC 3.28 L (4.30-5.90) m/uL Hgb 9.4 L (13.0-17.5) gm/dL Hct 30.1 L (39.0-53.0) % RDW 16.2 H (11.5-15.5) % Neutrophils # 15.4 H (1.3-7.7) k/uL Lymphocytes # 0.6 L (1.0-4.8) k/uL ABG pCO2 49 H (35-45) mmHg ABG HCO3 32 H (21-25) mmol/L ABG Total CO2 33 H (19-24) mmol/L BUN 46 H (9-20) mg/dL Glucose 128 H (74-99) mg/dL POC Glucose (mg/dL) (70-110) mg/dL Calcium 7.3 L (8.4-10.2) mg/dL CA 19-9 Antigen (0.0-34.9) U/mL 09/01/23 Range/Units 06:12 WBC (3.8-10.6) k/uL RBC (4.30-5.90) m/uL Hgb (13.0-17.5) gm/dL Hct (39.0-53.0) % RDW (11.5-15.5) % Neutrophils # (1.3-7.7) k/uL Lymphocytes # (1.0-4.8) k/uL ABG pCO2 (35-45) mmHg ABG HCO3 (21-25) mmol/L ABG Total CO2 (19-24) mmol/L BUN (9-20) mg/dL Glucose (74-99) mg/dL POC Glucose (mg/dL) 129 H (70-110) mg/dL Calcium (8.4-10.2) mg/dL CA 19-9 Antigen (0.0-34.9) U/mL Microbiology - Last 24 Hours (Table) 08/28/23 09:12 Blood Culture - Preliminary Blood Assessment and Plan (1) Fecal peritonitis Current Visit: Yes Status: Acute Code(s): K65.8 - OTHER PERITONITIS SNOMED Code(s): 214008597 (2) Leukocytosis Current Visit: No Status: Acute Code(s): D72.829 - ELEVATED WHITE BLOOD CELL COUNT, UNSPECIFIED SNOMED Code(s): 873724849 (3) Sepsis Current Visit: No Status: Acute Code(s): A41.9 - SEPSIS, UNSPECIFIED ORGANISM SNOMED Code(s): 10783205 Plan: 1patient with sepsis/septic shock in this patient who did have a tachycardia elevated white count source is fecal peritonitis in this patient who is status post extensive abdominal surgery for small bowel obstruction we will need to cover for enteric gram-negative both aerobes and anaerobes 2-abdominal cultures growing Klebsiella that is resistant to Unasyn as well as Zosyn though sensitive to meropenem and ertapenem as well as anaerobes 3-patient did have resolution of his fever patient white count is down to 17,000 today 4-continue patient on meropenem and monitor clinical course closely Dictation was produced using [employer] dictation software. please excuse any grammatical, word or spelling errors. Time with Patient: Less than 30
[2023-09-01 18:27] LABS: Glucose,Whole Blood 117 mg/dL (70-110)
--- NOTE | 2023-09-01 18:34 | P.PN ---
Subjective Progress Note Date: 09/01/23 (yumiko charting seen at 0930) Patient is a 72-year-old male with a history of Hodgkin's lymphoma status post chemo radiation and splenectomy in the 1970s, atrial fibrillation, dyslipidemia, coronary artery disease with myocardial infarction and coronary artery bypass surgery, and prostate cancer who presented to the emergency department with complaints of nausea and vomiting. Patient was hospitalized here from 08/01/23 through 08/17/23 for ileus and possible pneumonia. He was treated conserva tively. On arrival to the ER he was tachycardic with a pulse of 107. Laboratory in the ER consisted of CBC, coags, and CMP and was remarkable for sodium 135, lactic acid 2.3, and AST of 60. Abdominal x-ray was consistent with ileus. NG tube was placed. Arrangements were made for admission. He underwent CT abdomen pelvis which shows high density contrast into the rectum suggesting no complete obstruction, but could still be a partial obstruction along with anasarca of the soft tissues. He was seen by surgery and subsequently underwent small bowel follow-through which showed contrast in the cecum due to residual suspicious for partial versus complete obstruction. Surgical team determined that he would require surgical intervention. They recommended PICC line for TPN. Cardiology was consulted and determined that the patient was in intermediate risk with no absolute contraindication for surgery. Echocardiogram was obtained which showed an ejection fraction of 25 to 30% with mild pulmonary hypertension and prior inferior wall myocardial infarction with hypokinesis, moderate to severe tricuspid regurgitation, and large pleural effusion. Pulmonary was also consulted for presurgical clearance due to the patient's large pleural effusion. Patient subsequently underwent left-sided thoracentesis on with removal of 1200 cc of fluid, on 08/24 the patient underwent right-sided thoracentesis with removal of 1100 cc of turbulent fluid. On 08/26 patient underwent exploratory laparotomy with lysis of adhesions, decompressive colectomy with closure, and peritoneal lavage. Postoperatively the patient remained intubated and was subsequently transferred to the ICU. He had issues with postoperative hypotension and atrial fibrillation. He required vasopressor support with norepinephrine. Patient was subsequently diagnosed with septic shock which was felt to be due to fecal peritonitis and infectious disease was consulted. Patient was started on Zosyn 3.375 g. Patient's hemodynamics continued to worsen requiring multiple pressors and he is subsequently started on vasopressin and epinephrine along with dobutamine. On 08/29 patient's surgical pathology became available which was consistent with metastatic adenocarcinoma involving subserosal tissue likely from the upper gastrointestinal or pancreatic biliary tract. Patient seen and examined at bedside. Discussed with nursing no acute events overnight have been able to wean vasopressors. 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 Add Pepcid 20 mg IV every 12 -Merrem 1 g every 8 hours IV day #4 -Patient requiring TPN -Patient currently requiring vasopressin, norepinephrine, and dobutamine -NG tube to LIS -Pulmonary note reviewed: Continue current level of care. Poor prognosis. Acute on chronic systolic congestive heart failure with ejection fraction 25 to 30% Bilateral pleural effusion status bilateral postthoracentesis -Continue with Lasix 40 mg IV every 12 hours -Not a candidate for beta-carolyn, Aldactone, or TAINA/ARB due to hypotension. -Cardiology note reviewed: Consider weaning off vasopressin and norepinephrine. Chronic: Atrial fibrillation Coronary artery disease status post coronary artery bypass grafting Hypothyroidism Dyslipidemia Resolved: Metabolic acidosis Imaging: CXR reviewed: bilateral pleural effusions Data Review: Labs reviewed from today include CBC and basic metabolic profile which are remarkable for white blood cell count 17.1, hemoglobin 9.4, potassium 3.5. CA 199 35.8 DVT prophylaxis: Lovenox Poor over all prognosis This dictation was prepared using [employer] voice recognition software. Though every attempt is made to correct errors during dictation some may still exist. Objective - Vital Signs Vital signs: Vital Signs Temp 97.9 F 09/01/23 12:00 Pulse 110 H 09/01/23 18:00 Resp 23 09/01/23 18:00 BP 135/63 08/29/23 06:15 Pulse Ox 92 L 09/01/23 18:00 FiO2 40 09/01/23 16:00 Intake & Output 08/31/23 09/01/23 09/01/23 18:59 06:59 18:59 Intake Total 3565.761 3064.861 1698.036 Output Total 1975 1850 1650 Balance 0052.385 7285.861 48.036 Weight 86.9 kg 86.9 kg Intake: IV 662 1382 1436 KVO 40 60 5 Meropenem 1 gm In Sodium 100 Chloride 0.9% 100 ml @ 33 .3 mls/hr IVPB Q8H [facility] Rx #:[id number] Mvi, Adult No.4 with Vit 650 715 K 10 ml Trace (Conc-1Ml/ Dose) 1 ml Sodium Acetate 60 meq In Amino Acid 5%- D20w+Lytes*E* 1,000 ml @ 65 mls/hr IV .BY DURATION KYLE Rx#:[id number] NS 550 600 550 NS Pressure Pack 72 72 66 Intake, IV Titration 2893.761 1682.861 262.036 Amount DOBUTamine DRIP 500 mg In 250 Dextrose/Water 1 250ml. bag @ 5 MCG/KG/MIN 11.31 mls/hr IV .Q22H7M [facility] Rx# :[id number] Meropenem 1 gm In Sodium 200 100 Chloride 0.9% 100 ml @ 33 .3 mls/hr IVPB Q8H [facility] Rx #:[id number] Mvi, Adult No.4 with Vit 1821 130 K 10 ml Trace (Conc-1Ml/ Dose) 1 ml Sodium Acetate 60 meq In Amino Acid 5%- D20w+Lytes*E* 1,000 ml @ 65 mls/hr IV .BY DURATION KYLE Rx#:[id number] Norepinephrine 32 mg In 278.595 72.159 38.096 Sodium Chloride 0.9% 218 ml @ 0.4 MCG/KG/MIN 14. 138 mls/hr IV .[id number] [facility] Rx#:[id number] Potassium Chloride 10 meq 200 In Water For Injection 1 100ml.bag @ 100 mls/hr IVPB Q1H [facility] Rx#: [id number] Potassium Chloride 20 meq 100 100 In Water For Injection 1 100ml.bag @ 50 mls/hr IVPB Q2H [facility] Rx#: [id number] Sodium Acetate 60 meq In 1030 Amino Acid 5%-D20w+Lytes* E* 1,000 ml @ 65 mls/hr IV .BY DURATION KYLE Rx#: [id number] Vasopressin 20 unit In 44.166 95.37 49.47 Sodium Chloride 0.9% 50 ml @ 0.04 UNITS/MIN 6.12 mls/hr IV .Q8H20M [facility] Rx# :[id number] propofoL 1,000 mg In 100 155.332 74.470 Empty Bag 1 bag @ 15 MCG/ KG/MIN 6.255 mls/hr IV . Q16H [facility] Rx#:[id number] Oral 0 Other 10 Output: Gastric Drainage 50 Drainage 0 Anterior Medial Abdomen 0 Urine 1925 1850 1650 Other: Voiding Method Indwelling Catheter Indwelling Catheter Indwelling Catheter ABP, PAP, CO, CI - Last Documented Arterial Blood Pressure 116/52 - Labs CBC & Chem 7: 09/01/23 03:45 09/01/23 15:23 Labs: Abnormal Lab Results - Last 24 Hours (Table) 08/31/23 09/01/23 09/01/23 Range/Units 10:15 00:19 03:45 WBC (3.8-10.6) k/uL RBC (4.30-5.90) m/uL Hgb (13.0-17.5) gm/dL Hct (39.0-53.0) % RDW (11.5-15.5) % Neutrophils # (1.3-7.7) k/uL Lymphocytes # (1.0-4.8) k/uL ABG pCO2 (35-45) mmHg ABG HCO3 (21-25) mmol/L ABG Total CO2 (19-24) mmol/L BUN 46 H (9-20) mg/dL Glucose 128 H (74-99) mg/dL POC Glucose (mg/dL) 119 H (70-110) mg/dL Calcium 7.3 L (8.4-10.2) mg/dL CA 19-9 Antigen 35.8 H (0.0-34.9) U/mL 09/01/23 09/01/23 09/01/23 Range/Units 03:45 06:03 06:12 WBC 17.1 H (3.8-10.6) k/uL RBC 3.28 L (4.30-5.90) m/uL Hgb 9.4 L (13.0-17.5) gm/dL Hct 30.1 L (39.0-53.0) % RDW 16.2 H (11.5-15.5) % Neutrophils # 15.4 H (1.3-7.7) k/uL Lymphocytes # 0.6 L (1.0-4.8) k/uL ABG pCO2 49 H (35-45) mmHg ABG HCO3 32 H (21-25) mmol/L ABG Total CO2 33 H (19-24) mmol/L BUN (9-20) mg/dL Glucose (74-99) mg/dL POC Glucose (mg/dL) 129 H (70-110) mg/dL Calcium (8.4-10.2) mg/dL CA 19-9 Antigen (0.0-34.9) U/mL 09/01/23 Range/Units 18:25 WBC (3.8-10.6) k/uL RBC (4.30-5.90) m/uL Hgb (13.0-17.5) gm/dL Hct (39.0-53.0) % RDW (11.5-15.5) % Neutrophils # (1.3-7.7) k/uL Lymphocytes # (1.0-4.8) k/uL ABG pCO2 (35-45) mmHg ABG HCO3 (21-25) mmol/L ABG Total CO2 (19-24) mmol/L BUN (9-20) mg/dL Glucose (74-99) mg/dL POC Glucose (mg/dL) 117 H (70-110) mg/dL Calcium (8.4-10.2) mg/dL CA 19-9 Antigen (0.0-34.9) U/mL Microbiology - Last 24 Hours (Table) 08/28/23 09:12 Blood Culture - Preliminary Blood
[2023-09-01] MEDS ORDERED: metOLazone 2.5 MG TAB PO ONE (20:30)
[2023-09-01] MEDS: FAMOTIDINE 20 MG/2 ML VIAL IV SCH (21:20)
[2023-09-02 00:06] LABS: Glucose,Whole Blood 131 mg/dL (70-110)
[2023-09-02 05:26] LABS: Anisocytosis Slight; HCT 28.8 % (39.0-53.0); HGB 9.3 gm/dL (13.0-17.5); Hypochromasia Slight; MCH 29.1 pg (25.0-35.0); MCHC 32.4 g/dL (31.0-37.0); Mean Platelet Volume 10.9; Platelet Count 252 k/uL (150-450); RDW 16.4 % (11.5-15.5); WBC 11.1 k/uL (3.8-10.6)
[2023-09-02 05:35] LABS: African American GFR (CKD) >90 (>60 ml/min/1.73 sqM); Anion Gap 1 mmol/L; Blood Urea Nitrogen 52 mg/dL (9-20); Calcium 7.4 mg/dL (8.4-10.2); Carbon Dioxide 34 mmol/L (22-30); Chloride 105 mmol/L (98-107); Glucose 134 mg/dL (74-99); Magnesium 2.2 mg/dL (1.6-2.3); Non-African American GFR(CKD) >90 (>60 ml/min/1.73 sqM); Phosphorus 3.2 mg/dL (2.5-4.5); Potassium 3.3 mmol/L (3.5-5.1); Sodium 140 mmol/L (137-145)
[2023-09-02 05:57] LABS: ABG Base Excess 10.6 mmol/L; ABG HCO3 35 mmol/L (21-25); ABG PCO2 50 mmHg (35-45); ABG PH 7.45 (7.35-7.45); ABG PO2 102 mmHg (83-108); ABG TCO2 36 mmol/L (19-24); Allen Test Performed? Yes
[2023-09-02 05:59] LABS: ABG Oxygen Saturation 96.9 % (94-97)
[2023-09-02 05:59] LABS: Glucose,Whole Blood 141 mg/dL (70-110)
[2023-09-02 06:21] LABS: Glucose,Whole Blood 127 mg/dL (70-110)
[2023-09-02] MEDS: POTASSIUM CHLORIDE 20 MEQ in WATER FOR INJECTION 1 100ML.BAG IVPB SCH ×2 (06:41→14:33)
[2023-09-02] MEDS: LEVOTHYROXINE IVP 100 MCG/5 ML VIAL IVPB SCH (08:10)
[2023-09-02] MEDS: CHLORHEXIDINE GLUCONATE 15 ML CUP MUCOUS MEM SCH (08:10)
--- NOTE | 2023-09-02 08:17 | XR ---
EXAMINATION TYPE: XR chest 1V portable DATE OF EXAM: 09/02/2023 Comparison: 09/01/2023 Clinical History: 72-year-old male effusion Findings: Median sternotomy wires are present. Left anterior chest wall ICD generator with right ventricular le ad. Additional post-CABG clips. ET tube tip at the medial clavicular heads. NG tube satisfactory. Lef t IJ CVC and right PICC tip remain in place in the region of the lower SVC. Ongoing diffuse interstit ial and hazy densities with moderate bilateral effusions. Aeration is similar to slightly worsening. Impression: 1. Correlate for CHF with pulmonary edema. Aeration is similar to slightly worsening. 2. Ongoing moderate bilateral pleural effusions with adjacent atelectasis and or consolidation.
[2023-09-02] MEDS: FUROSEMIDE 100 MG in SODIUM CHLORIDE 0.9% 90 ML IV SCH (09:12)
[2023-09-02 11:42] LABS: Glucose,Whole Blood 132 mg/dL (70-110)
[2023-09-02] MEDS ORDERED: HEPARIN SODIUM 1,000 UN/ML (10ML VL) IV PRN (11:58)
--- NOTE | 2023-09-02 12:16 | P.PN ---
Subjective Progress Note Date: 09/02/23 CHF The patient is a pleasant 72-year-old gentleman with a past medical history significant for coronary artery disease and cardiomyopathy and congestive heart failure who was admitted to the hospital with small bowel obstruction. He developed heart failure. The echo showed severe cardiomyopathy with EF around 20%. August 26, 2023 The patient was seen and evaluated this morning. He has severe left upper extremity edema. I am going to start the patient on Lasix IV at the small dose 20 mg twice daily and continue monitoring the kidney function and electrolytes and also obtain a venous duplex study to rule out DVT. Meanwhile continue the current medical regimen. He cannot take any oral medication at this point. The physical examination is remarkable for severe left upper extremity edema. August 27, 2023 The patient was seen in the intensive care unit. He underwent exploratory laparotomy and lysis of adhesion earlier this morning. Currently he is intubated on mechanical ventilation. Hemodynamically he is unstable and requiring small dose of norepinephrine. He is not receiving any oral medication. He is maintaining normal sinus mechanism. From the cardiovascular standpoint of view, we will continue the current medical regimen and consider adding dobutamine giving that he does have severe cardiomyopathy with an ejection fraction of 20%. The chest x-ray and blood work were reviewed. The examination is remarkable for the patient being intubated on mechanical ventilation with diminished breathing sounds bilaterally and no edema was noted. 08/28/2023 Patient is on norepinephrine, vasopressin and dobutamine drip. He continues to be on ventilator support failing weaning trial today. 08/29/2023 Patient is on norepinephrine, vasopressin and dobutamine. Patient continues to be on ventilator support and failed weaning trial. The abdomen has a wound VAC in place. 08/30/23 BP 106/49, heart rate 112 bpm, sinus tachycardia, Hemoglobin 10, WBC 34, BUN 36, creatinine 0.8 Patient is still on norepinephrine, vasopressin and dobutamine. Patient continues to be on ventilator support. He failed weaning trial today as well. Abdominal wound VAC is in place. Very poor clinical improvement 08/31/23 We have not been able to titrate the patient down from the 3 pressors norepine phrine vasopressin and dobutamine. BP 113/51, heart rate 103, WBC 28, hemoglobin eight 9.9. WBC has trended over last few days. Hemoglobin has gradually declined. Nutrition by TPN Creatinine 0.8 pH 7.3, respiratory acidosis 3 L urine output yesterday. Overall in positive fluid balance. 09/01/23 Patient is on 5 mcg dobutamine, norepinephrine 0.08 mcg and vasopressin 0.04 mcg. BP 110/50, sinus tachycardia WBC trended down to 18 from 28 yesterday. Hemoglobin is stable. Creatinine is stable. Nutrition by TPN. 3 L urine output yesterday tolerating IV diuretic well. Continues to be in positive fluid balance. 09/02/23 BP 107/51, heart rate 103 bpm Hemoglobin 9.3, WBC 11.1. WBCs trending down since patient has been on meropenem. Creatinine 0.6. I's and O's, 3.2 L of urinary output. Mildly positive fluid balance. Last night around 2 AM patient's norepinephrine and dobutamine was discontinued. This morning patient went into atrial fibrillation with rapid ventricular re sponse. Heart rate in 110 bpm. BP 90/60. Patient is continue to be on vasopressin 0.04 On exam Atrial fibrillation with RVR S1-S2 audible, regular pulse, no significant murmurs, On mechanical ventilator support, diminished breath sounds bilaterally, no edema Abdominal guarding present Assessment Coronary artery disease Small bowel obstruction Status post abdominal surgery as described above Severe cardiomyopathy Bilateral pleural effusion Status post pleurocentesis Left upper extremity edema Multiple comorbid conditions Plan Patient was on Lasix IV 40 mg twice daily. This was changed to Lasix 5 mg/h continuous drip by ICU team today. Patient's dobutamine and norepinephrine was discontinued last night and was continued to be on vasopressin. This morning patient has gone into atrial fibrillation with RVR. Will start IV heparin drip with a goal PTT of 50-70. Monitor for any signs of bleeding. Patient is at high risk. Ideally we would have continued dobutamine and norepinephrine and would have discontinue vasopressin first. If patient's heart rate goes up and blood pressure goes down, okay to cardiovert Considering patient's severe cardiomyopathy, diagnosis of pancreatic cancer, p atient's overall prognosis is guarded. I had poor prognosis discussion with patient's family at bedside. They understand the poor prognosis and would like to continue hemodynamic support for next few days to see if patient can be weaned off pressors and ventilator. Objective - Vital Signs Vital signs: Vital Signs Temp 97.6 F 09/02/23 08:00 Pulse 108 H 09/02/23 11:00 Resp 19 09/02/23 11:00 BP 135/63 08/29/23 06:15 Pulse Ox 95 09/02/23 11:00 FiO2 40 09/02/23 11:30 Intake & Output 09/01/23 09/02/23 09/02/23 18:59 06:59 18:59 Intake Total 3209.245 1140.680 547.258 Output Total 1715 1515 1000 Balance 1494.245 -374.320 -452.742 Weight 86.9 kg 85.6 kg Intake: IV 1557 942 378 KVO 5 Meropenem 1 gm In Sodium 100 99 Chloride 0.9% 100 ml @ 33 .3 mls/hr IVPB Q8H [facility] Rx #:[id number] Mvi, Adult No.4 with Vit 780 65 260 K 10 ml Trace (Conc-1Ml/ Dose) 1 ml Sodium Acetate 60 meq In Amino Acid 5%- D20w+Lytes*E* 1,000 ml @ 65 mls/hr IV .BY DURATION [facility] Rx#:[id number] NS 600 650 NS Pressure Pack 72 78 18 Potassium Chloride 20 meq 50 100 In Water For Injection 1 100ml.bag @ 50 mls/hr IVPB Q2H [facility] Rx#: [id number] Intake, IV Titration 1652.245 198.680 169.258 Amount DOBUTamine DRIP 500 mg In 250 Dextrose/Water 1 250ml. bag @ 5 MCG/KG/MIN 11.31 mls/hr IV .Q22H7M [facility] Rx# :[id number] Furosemide 100 mg In 15 Sodium Chloride 0.9% 90 ml @ 5 MG/HR 5 mls/hr IV .Q20H [facility] Rx#:[id number] Mvi, Adult No.4 with Vit 1041 K 10 ml Trace (Conc-1Ml/ Dose) 1 ml Sodium Acetate 60 meq In Amino Acid 5%- D20w+Lytes*E* 1,000 ml @ 65 mls/hr IV .BY DURATION [facility]YLE Rx#:[id number] Norepinephrine 32 mg In 38.685 14.213 Sodium Chloride 0.9% 218 ml @ 0.4 MCG/KG/MIN 14. 138 mls/hr IV .[id number] [facility] Rx#:[id number] Potassium Chloride 20 meq 100 In Water For Injection 1 100ml.bag @ 50 mls/hr IVPB Q2H [facility] Rx#: [id number] Sodium Chloride 0.9% 1, 40 000 ml @ 10 mls/hr IV . Q24H [facility] Rx#:[id number] Vasopressin 20 unit In 49.47 92.310 Sodium Chloride 0.9% 50 ml @ 0.04 UNITS/MIN 6.12 mls/hr IV .Q8H20M [facility] Rx# :[id number] propofoL 1,000 mg In 173.090 92.157 114.258 Empty Bag 1 bag @ 15 MCG/ KG/MIN 6.255 mls/hr IV . Q16H [facility] Rx#:[id number] Oral 0 Output: Gastric Drainage 160 Drainage 0 0 0 Anterior Medial Abdomen 0 0 0 Urine 1715 1355 1000 Other: Voiding Method Indwelling Catheter Indwelling Catheter Indwelling Catheter # Bowel Movements 1 1 1 ABP, PAP, CO, CI - Last Documented Arterial Blood Pressure 107/51 - Labs CBC & Chem 7: 09/02/23 05:16 09/02/23 05:16 Labs: Abnormal Lab Results - Last 24 Hours (Table) 09/01/23 09/02/23 09/02/23 Range/Units 18:25 00:05 05:16 WBC (3.8-10.6) k/uL RBC (4.30-5.90) m/uL Hgb (13.0-17.5) gm/dL Hct (39.0-53.0) % RDW (11.5-15.5) % ABG pCO2 (35-45) mmHg ABG HCO3 (21-25) mmol/L ABG Total CO2 (19-24) mmol/L Potassium 3.3 L (3.5-5.1) mmol/L Carbon Dioxide 34 H (22-30) mmol/L BUN 52 H (9-20) mg/dL Creatinine 0.63 L (0.66-1.25) mg/dL Glucose 134 H (74-99) mg/dL POC Glucose (mg/dL) 117 H 131 H (70-110) mg/dL Calcium 7.4 L (8.4-10.2) mg/dL 09/02/23 09/02/23 09/02/23 Range/Units 05:16 05:53 05:57 WBC 11.1 H (3.8-10.6) k/uL RBC 3.20 L (4.30-5.90) m/uL Hgb 9.3 L (13.0-17.5) gm/dL Hct 28.8 L (39.0-53.0) % RDW 16.4 H (11.5-15.5) % ABG pCO2 50 H (35-45) mmHg ABG HCO3 35 H (21-25) mmol/L ABG Total CO2 36 H (19-24) mmol/L Potassium (3.5-5.1) mmol/L Carbon Dioxide (22-30) mmol/L BUN (9-20) mg/dL Creatinine (0.66-1.25) mg/dL Glucose (74-99) mg/dL POC Glucose (mg/dL) 141 H (70-110) mg/dL Calcium (8.4-10.2) mg/dL 09/02/23 09/02/23 Range/Units 06:20 11:41 WBC (3.8-10.6) k/uL RBC (4.30-5.90) m/uL Hgb (13.0-17.5) gm/dL Hct (39.0-53.0) % RDW (11.5-15.5) % ABG pCO2 (35-45) mmHg ABG HCO3 (21-25) mmol/L ABG Total CO2 (19-24) mmol/L Potassium (3.5-5.1) mmol/L Carbon Dioxide (22-30) mmol/L BUN (9-20) mg/dL Creatinine (0.66-1.25) mg/dL Glucose (74-99) mg/dL POC Glucose (mg/dL) 127 H 132 H (70-110) mg/dL Calcium (8.4-10.2) mg/dL
--- NOTE | 2023-09-02 12:17 | P.PN ---
Subjective Progress Note Date: 09/02/23 Principal diagnosis: Acute small bowel obstruction I was asked to evaluate this patient regarding bilateral pleural effusions. The patient was admitted on 08/20/2023 for complaints of nausea and emesis. The patient is known to me from a previous hospitalization between 08/01/2023 and 08/17/2023. At that time, the patient was quite ill and he was seen and evaluated in the intensive care unit for shock/hypotension which was thought to be septic in nature. At time, the patient also had ileus/small bowel obstruction and ischemic colitis and the patient was treated conservatively and following his discharge he was tolerating full liquid diet but not regular.. Septic shock was highly suspected and the patient is immunocompromised due to his previous splenectomy. The patient was treated and the patient was discharged to be readmitted after a short period of time. He is known to have severe cardiomyopathy with an ejection fraction of 30 to 35%. He has coronary artery disease with previous OR and previous coronary bypass surgery. He also has bilateral pleural effusion and we have performed a right-sided thoracentesis on this patient on 08/10/2023 and based on that pleural fluid analysis, the patient had a transudate with low LDH and protein in the pleural fluid cytology collected was negative for malignancy. Note that, at that time, the patient had a total of 1.2 L of pleural fluid aspirated from the right lung without any complications. He is also known to have history of Hodgkin's lymphoma with a previous splenectomy followed by chemoradiation therapy this was performed in 1976 in 1977. He is known to have prostate cancer, hypothyroidism, hyperlipide alvino. During this current admission, the patient was seen and evaluated by general surgery. Regarding his progressive abdominal distention and nausea and emesis. The patient during this current admission underwent a small bowel follow-through and the patient was found to have findings suspicious for partial versus complete obstruction. Based on that, the patient is currently being considered for surgical exploration. He was supposed to go for surgery today and there was concern about his respiratory status as the patient had developed also bilateral pleural effusions. Based on that, pulmonary consultation was requested. He currently has an NG tube for decompression. He also has TPN for nutritional support. He is not receiving any form of antibiotics. He remains on oral Diflucan only. His white cell count is at 12 with a hemoglobin 12.5 and a platelet count of 369. BUN is at 20 with a creatinine 0.7. Sodium is at 139. Most recent echocardiogram that was done today showed impairment of LV function with an ejection fraction of 25 to 30%. There was also inferior wall hypoki nesis and moderate MR and moderate aortic regurgitation and moderate to severe tricuspid regurgitation. The chest x-ray from today showing bilateral pleural effusion slightly worse on the left. The patient has an NG tube in place. On today's evaluation of 2023, the patient is being seen for a follow-up he is calm and comfortable on room air oxygen. I performed a left-sided thoracentesis on this patient yesterday with a total of 1.2 L of fluid drained. The right side will be done today as the patient is being prepped and optimized for surgery. He is still NPO. He has an NG tube in place. Output is still active. Abdomen is distended. It is not tender. Postprocedure chest x-ray s howed no evidence of any pneumothorax. There is residual right-sided pleural effusion. BUN is at 21 with a creatinine of 0.7. Sodium level is at 136 and the patient remains on TPN for nutritional support. No other significant events overnight. 08/27/2023, the patient is being seen in follow-up. The patient was taken to the operating room and the patient underwent expiratory laparotomy and extensive lysis of adhesions was done. Decompression of the bowel was done with closure and this involves a decompression colotomy with closure and this involved the transverse colon. Peritoneal lavage was done with a total of 3 L. The incision was closed and a wound VAC was applied. Postop, the patient was kept intubated on mechanical ventilator and he was transferred to the intensive care unit. He was having some difficulties with hypotension preoperatively and he did have short runs of atrial fibrillation. His current rhythm is sinus. He is currently on propofol running at 25 mcg/kg/min. The patient is hemodynamically hypotensive and he is on norepinephrine at 0.08 mcg/kg/min. He was given a total of 1.5 L of fluid in the operating room. Another 1 L bolus will be given to him right now. He is maintenance fluid to be increased up to 150 cc an hour. He is currently on assist-control of 14, tidal volume of 400, FiO2 is 100% with a PEEP of 5 and the patient's pH was at 7.4 with a pCO2 of 47 and pO2 of more than 100. FiO2 was weaned down to 40%.. Chest x-ray showed NG tube being in good location. There is trace pleural effusion and there is a triple-lumen catheter in the right IJ which seems to be in good location for now. The blood work from this morning showed a BUN of 31 with a creatinine of 0.7 and his sodium level was at 134 and the potassium level was at 3.4. He is well sedated and synchronous with mechanical ventilator. He remains on TPN for nutritional support. No other significant issues for now. The Lopressor disaster will be placed on hold for now. Will also hold on his Lasix. Patient was reevaluated today on 08/28/2023, patient remains in the ICU, intubated and mechanically ventilated. Patient is status post expiratory laparotomy and extensive lysis of adhesions was done. Postoperative day #1. Remains intubated and mechanically ventilated. Patient is on assist-control rate of 16 tidal volume 400 FiO2 40% and PEEP of 5. ABG showed a pO2 of 99 pCO2 42 pH of 7.32. Blood pressure is marginal in spite of maximal therapy with norepinephrine at 0.5 mcg/kg/min, he is also on vasopressin at 0.03 units/min, patient is receiving propofol at 35 mg/kg/min, IV fluid is running at 150 cc/h. Patient is also receiving TPN, and he has received albumin. Intermittently the patient was receiving Lasix which I placed on hold because of his marginal blood pressure. Antibiotics graf patient remains on Zosyn and Diflucan. Apparently the patient was found to have fecal peritonitis when he underwent exploratory laparotomy. WBC count today is 21.5 hemoglobin 11.9. ABG showed a pO2 of 99 pCO2 42 pH of 7.32 basic metabolic profile is normal renal profile is normal chest x-ray is showing evidence of small bilateral pleural effusions and I suspect mild interstitial edema echocardiogram on this admission showed LV dysfunction, patient may improve with dobutamine, and I will try to go on a trial of dobutamine at 2.5 mcg/kg/min Patient was reevaluated today on 11/16, remains in the ICU intubated and mechanically ventilated. Patient is quite unstable, he is hemodynamically doing poorly, requiring multiple pressors and inotropes. He is now on norepinephrine at 0.5 mcg/kg/min/maxed vasopressin at 0.04 units/min, max patient is on epinep hrine at 0.05 mcg/kg/min being titrated, he is also on propofol, dobutamine 5 mcg/kg/min patient is receiving TPN, and is also on Merrem. ABG this morning showed a pO2 of 79 pCO2 39 pH of 7.36, and this is on assist-control rate of 16 tidal volume 400 FiO2 40% and PEEP of 5. Chest x-ray continues to show evidence of pulmonary edema, patient will definitely benefit from diuresis, however his blood pressure seems to be an issue, may gently diurese today. Otherwise his pulmonary status may deteriorate and the patient may end up requiring higher FiO2 and higher PEEP patient has continued leukocytosis with WBC count of 35.9 hemoglobin 11 basic metabolic profile is normal renal profile is normal condition graf, patient is on TPN at 65 cc/h. Propofol is at 30 mcg/kg/min Patient was reevaluated today on 08/30/2023, remains in the ICU, intubated and mechanically ventilated. Patient is on assist-control rate of 16 tidal volume 400 FiO2 40% and PEEP of 5. Chest x-ray is showing worsening bilateral pleural effusions and pulmonary edema, hence Lasix was given today. Patient remains on pressors and inotropes including norepinephrine, vasopressin, dobutamine, he is off epinephrine. Overall the patient is about the same, he is sedated, on propofol and is also on fentanyl. There is pulmonary edema, Lasix was given, and this will be given 40 mg IV push twice daily for biotics graf patient remains on Merrem, nutrition graf patient is receiving TPN ABG showed a pO2 of 111 pCO2 44 pH of 7.34. Basic metabolic profile is normal, CBC is showing significant leukocytosis with WBC count of 34.1 hemoglobin is 10.3 renal profile is normal with BUN of 36 creatinine 0.8 overall the patient is not doing well, remains on propofol and he is not ready for any form of weaning trials at this point Patient was reevaluated today on 08/31/2023, remains in the ICU, remains intubated and mechanically ventilated. Patient is on assist-control rate of 16 tidal volume 400 FiO2 45% PEEP of 5 ABG showed a pO2 of 111 pCO2 54 pH of 7.32, hence his rate was increased up to 18 and his FiO2 was cut down to 40%. Patient remains on multiple drips including vasopressin at 0.04, norepinephrine at 0.35 mcg/kg/min, dobutamine at 5 mg/kg/min propofol at 30 mcg/kg/min he is also on TPN at 65 cc/h IV fluid 50 cc/h of 0.9 normal saline. Remains on Lasix at 40 mg IV push twice daily. Chest x-ray continues to show evidence of pulmonary edema with bilateral pleural effusions, however the patient is responding to Lasix and he continues to have significant and good urine output. The pathology on his bowel tissue came back showing evidence of metastatic disease to the GI tract, most likely the primary source is either pancreatic or hepatobiliary. Family was notified about the diagnosis by Dr. Andino on the case WBC count today is 28.7 hemoglobin is 9.9. Platelets are 264. Basic metabolic profile is normal renal profile is normal bicarb is 25, chest x-ray continues to show evidence of ongoing congestive heart failure and moderate bilateral pleural effusions Patient was evaluated today on 09/01/2023, remains in the ICU, intubated and mechanically ventilated. Patient remains on assist-control rate of 18 tidal volume 400 FiO2 40% and PEEP of 5 ABG showed a pO2 of 85 pCO2 49 pH of 7.42. Hence no ventilator changes were made today. Chest x-ray continues to show evidence of pulmonary edema with bilateral pleural effusions patient remains on propofol at 20 mcg/kg/min dobutamine 5 mcg/kg/min norepinephrine at 0.11 mcg/kg/min vasopressin at 0.04 units/min patient is on TPN at 65 cc/h 0.9 normal saline at 50 cc/h remains on Lasix at 40 mg IV push twice daily and on Merrem not much of a cell changer the last 24 hours, patient is basically about the same, on low-dose of sedation, patient opens his eyes but does not follow any instructions WBC count is 17.1 hemoglobin is 9.4. Basic metabolic profile is normal, BUN is 46 creatinine is 0.74 Patient was reevaluated today on 09/02/2023, remains in the ICU, intubated and mechanically ventilated. Patient is on assist-control rate of 18 tidal volume 400 FiO2 40% and PEEP of 5 ABG showed a pO2 of 102 pCO2 50 pH of 7.45 patient remains on multiple drips including dobutamine at 5 mcg/kg/min, propofol propofol at 30 mcg/kg/min, vasopressin at 0.04 units/min, TPN at 65 mL/h patient remains on Merrem and today I changed IV Lasix to Lasix infusion at 5 mg/h since the patient remains swollen and edematous and continues to have large bilateral pleural effusion. Meantime the plan is to hold on sedation today, and daily assessment of mental status, although I believe the patient has extremely very poor prognosis. Chest x-ray continues to show bilateral pleural effusions and evidence of pulmonary edema Objective - Vital Signs Vital signs: Vital Signs Temp 97.6 F 09/02/23 08:00 Pulse 108 H 09/02/23 11:00 Resp 19 09/02/23 11:00 BP 135/63 08/29/23 06:15 Pulse Ox 95 09/02/23 11:00 FiO2 40 09/02/23 11:30 Intake & Output 09/01/23 09/02/23 09/02/23 18:59 06:59 18:59 Intake Total 3209.245 1140.680 547.258 Output Total 1715 1515 1000 Balance 1494.245 -374.320 -452.742 Weight 86.9 kg 85.6 kg Intake: IV 1557 942 378 KVO 5 Meropenem 1 gm In Sodium 100 99 Chloride 0.9% 100 ml @ 33 .3 mls/hr IVPB Q8H [facility] Rx #:[id number] Mvi, Adult No.4 with Vit 780 65 260 K 10 ml Trace (Conc-1Ml/ Dose) 1 ml Sodium Acetate 60 meq In Amino Acid 5%- D20w+Lytes*E* 1,000 ml @ 65 mls/hr IV .BY DURATION [facility]YLE Rx#:[id number] NS 600 650 NS Pressure Pack 72 78 18 Potassium Chloride 20 meq 50 100 In Water For Injection 1 100ml.bag @ 50 mls/hr IVPB Q2H [facility] Rx#: [id number] Intake, IV Titration 1652.245 198.680 169.258 Amount DOBUTamine DRIP 500 mg In 250 Dextrose/Water 1 250ml. bag @ 5 MCG/KG/MIN 11.31 mls/hr IV .Q22H7M [facility] Rx# :[id number] Furosemide 100 mg In 15 Sodium Chloride 0.9% 90 ml @ 5 MG/HR 5 mls/hr IV .Q20H [facility] Rx#:[id number] Mvi, Adult No.4 with Vit 1041 K 10 ml Trace (Conc-1Ml/ Dose) 1 ml Sodium Acetate 60 meq In Amino Acid 5%- D20w+Lytes*E* 1,000 ml @ 65 mls/hr IV .BY DURATION [facility]YLE Rx#:[id number] Norepinephrine 32 mg In 38.685 14.213 Sodium Chloride 0.9% 218 ml @ 0.4 MCG/KG/MIN 14. 138 mls/hr IV .V21Y55M [facility] Rx#:[id number] Potassium Chloride 20 meq 100 In Water For Injection 1 100ml.bag @ 50 mls/hr IVPB Q2H [facility] Rx#: [id number] Sodium Chloride 0.9% 1, 40 000 ml @ 10 mls/hr IV . Q24H [facility] Rx#:[id number] Vasopressin 20 unit In 49.47 92.310 Sodium Chloride 0.9% 50 ml @ 0.04 UNITS/MIN 6.12 mls/hr IV .Q8H20M [facility] Rx# :[id number] propofoL 1,000 mg In 173.090 92.157 114.258 Empty Bag 1 bag @ 15 MCG/ KG/MIN 6.255 mls/hr IV . Q16H [facility] Rx#:[id number] Oral 0 Output: Gastric Drainage 160 Drainage 0 0 0 Anterior Medial Abdomen 0 0 0 Urine 1715 1355 1000 Other: Voiding Method Indwelling Catheter Indwelling Catheter Indwelling Catheter # Bowel Movements 1 1 1 ABP, PAP, CO, CI - Last Documented Arterial Blood Pressure 107/51 - Exam GENERAL: Revealed 72-year-old cachectic, intubated and mechanically ventilated Head: Atraumatic, normocephalic, endotracheal tube and orogastric tubes are intact HEENT: No sclera icterus. Extraocular movements grossly intact. Moist buccal mucosa. Head is atraumatic, normocephalic. No nasal drainage. NECK: Supple without lymphadenopathy. CHEST: Diminished breath sounds and crackles at the bases CARDIOVASCULAR: Normal S1-S2, no S3 gallop, 2/6 systolic murmur throughout the precordium ABDOMEN: Distended. Abdomen is firm, nontender. Surgical wound site is clean. Wound VAC noted. No bowel sounds. No direct tenderness or rebound tenderness or guarding. MUSCULOSKELETAL: No clubbing, 2+ bipedal edema, no cyanosis. NEUROLOGIC: Could not assess patient is sedated and mechanically ventilated. PSYCH: Could not assess SKIN: No rashes - Labs CBC & Chem 7: 09/02/23 05:16 09/02/23 05:16 Labs: Abnormal Lab Results - Last 24 Hours (Table) 09/01/23 09/02/23 09/02/23 Range/Units 18:25 00:05 05:16 WBC (3.8-10.6) k/uL RBC (4.30-5.90) m/uL Hgb (13.0-17.5) gm/dL Hct (39.0-53.0) % RDW (11.5-15.5) % ABG pCO2 (35-45) mmHg ABG HCO3 (21-25) mmol/L ABG Total CO2 (19-24) mmol/L Potassium 3.3 L (3.5-5.1) mmol/L Carbon Dioxide 34 H (22-30) mmol/L BUN 52 H (9-20) mg/dL Creatinine 0.63 L (0.66-1.25) mg/dL Glucose 134 H (74-99) mg/dL POC Glucose (mg/dL) 117 H 131 H (70-110) mg/dL Calcium 7.4 L (8.4-10.2) mg/dL 09/02/23 09/02/23 09/02/23 Range/Units 05:16 05:53 05:57 WBC 11.1 H (3.8-10.6) k/uL RBC 3.20 L (4.30-5.90) m/uL Hgb 9.3 L (13.0-17.5) gm/dL Hct 28.8 L (39.0-53.0) % RDW 16.4 H (11.5-15.5) % ABG pCO2 50 H (35-45) mmHg ABG HCO3 35 H (21-25) mmol/L ABG Total CO2 36 H (19-24) mmol/L Potassium (3.5-5.1) mmol/L Carbon Dioxide (22-30) mmol/L BUN (9-20) mg/dL Creatinine (0.66-1.25) mg/dL Glucose (74-99) mg/dL POC Glucose (mg/dL) 141 H (70-110) mg/dL Calcium (8.4-10.2) mg/dL 09/02/23 09/02/23 Range/Units 06:20 11:41 WBC (3.8-10.6) k/uL RBC (4.30-5.90) m/uL Hgb (13.0-17.5) gm/dL Hct (39.0-53.0) % RDW (11.5-15.5) % ABG pCO2 (35-45) mmHg ABG HCO3 (21-25) mmol/L ABG Total CO2 (19-24) mmol/L Potassium (3.5-5.1) mmol/L Carbon Dioxide (22-30) mmol/L BUN (9-20) mg/dL Creatinine (0.66-1.25) mg/dL Glucose (74-99) mg/dL POC Glucose (mg/dL) 127 H 132 H (70-110) mg/dL Calcium (8.4-10.2) mg/dL Assessment and Plan Assessment: Impression: Acute hypoxic respiratory failure secondary to abdominal sepsis and septic shock Complete small bowel obstruction requiring exploratory laparotomy lysis of adhesions colostomy and decompression postoperative day #6 Acute fecal peritonitis. Hypotension secondary to sepsis septic shock and cardiogenic also in nature Severe LV dysfunction with ejection fraction of 20% Mild to moderate aortic regurgitation and tricuspid regurgitation with pulmonary hypertension Acute systolic congestive heart failure Underlying coronary artery disease and previous CABG History of Hodgkin's lymphoma and previous splenectomy History of prostate cancer History of atrial fibrillation presently in sinus rhythm History of hypothyroidism Dyslipidemia Bilateral pleural effusions requiring thoracentesis, multiple times. Transud ative in nature. Cardiogenic in nature. 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 Recommendation: Continue ventilatory support patient is not ready for any weaning at this point, however will continue to assess mental status on a daily basis and address accordingly. Continue hemodynamic support including vasopressin, dobutamine changed Lasix to Lasix infusion at 5 mg/h Continue TPN.Nutritional support Continue GI and DVT prophylaxis Continue antibiotic patient is now on Merrem Lasix drip at 5 mg/h and discontinue IV push Lasix Continue to monitor in ICU Prognosis remains extremely poor and guarded Critical care time is over 30 Will continue to follow Time with Patient: Greater than 30
[2023-09-02] MEDS: HEPARIN SOD,PORK IN 0.45% NACL 25,000 UNIT in 0.45% NACL 1 250ML.BAG IV SCH (13:27)
--- NOTE | 2023-09-02 13:33 | P.PN ---
Subjective Progress Note Date: 09/02/23 Principal diagnosis: Reason for follow-up is sepsis and fecal peritonitis Patient is a 72-year-old male with a past medical history significant for atrial fibrillation coronary artery disease hyperlipidemia ME prostate cancer admitted to the hospital for bowel obstruction treated medically subsequently taken to the OR and the patient was noticed to have feculent ojhn tonitis in this patient who is status post laparotomy with lysis of adhesion decompressive colectomy with closure. On today's evaluation that is 09/02/2023, patient is afebrile today, patient remains to be intubated on the vent FiO2 stable at 40% no significant purulent secretion through the ET patient is currently requiring low-dose pressor support per the nursing staff patient did have small bowel movement no other changes reported. Patient white count is down to 11.1 creatinine 0.63 blood cultures so far negative Objective - Vital Signs Vital signs: Vital Signs Temp 97.6 F 09/02/23 08:00 Pulse 108 H 09/02/23 11:00 Resp 19 09/02/23 11:00 BP 135/63 08/29/23 06:15 Pulse Ox 95 09/02/23 11:00 FiO2 40 09/02/23 11:30 Intake & Output 09/01/23 09/02/23 09/02/23 18:59 06:59 18:59 Intake Total 3209.245 1140.680 842.313 Output Total 1715 1515 1000 Balance 1494.245 -374.320 -157.687 Weight 86.9 kg 85.6 kg Intake: IV 1557 942 378 KVO 5 Meropenem 1 gm In Sodium 100 99 Chloride 0.9% 100 ml @ 33 .3 mls/hr IVPB Q8H [facility] Rx #:[id number] Mvi, Adult No.4 with Vit 780 65 260 K 10 ml Trace (Conc-1Ml/ Dose) 1 ml Sodium Acetate 60 meq In Amino Acid 5%- D20w+Lytes*E* 1,000 ml @ 65 mls/hr IV .BY DURATION [facility] Rx#:[id number] NS 600 650 NS Pressure Pack 72 78 18 Potassium Chloride 20 meq 50 100 In Water For Injection 1 100ml.bag @ 50 mls/hr IVPB Q2H [facility] Rx#: [id number] Intake, IV Titration 1652.245 198.680 464.313 Amount DOBUTamine DRIP 500 mg In 250 243.731 Dextrose/Water 1 250ml. bag @ 5 MCG/KG/MIN 11.31 mls/hr IV .Q22H7M [facility] Rx# :[id number] Furosemide 100 mg In 15 Sodium Chloride 0.9% 90 ml @ 5 MG/HR 5 mls/hr IV .Q20H [facility] Rx#:[id number] Mvi, Adult No.4 with Vit 1041 K 10 ml Trace (Conc-1Ml/ Dose) 1 ml Sodium Acetate 60 meq In Amino Acid 5%- D20w+Lytes*E* 1,000 ml @ 65 mls/hr IV .BY DURATION [facility] Rx#:[id number] Norepinephrine 32 mg In 38.685 14.213 0.324 Sodium Chloride 0.9% 218 ml @ 0.4 MCG/KG/MIN 14. 138 mls/hr IV .[id number] [facility] Rx#:[id number] Potassium Chloride 20 meq 100 In Water For Injection 1 100ml.bag @ 50 mls/hr IVPB Q2H [facility] Rx#: [id number] Sodium Chloride 0.9% 1, 40 000 ml @ 10 mls/hr IV . Q24H [facility] Rx#:[id number] Vasopressin 20 unit In 49.47 92.310 51.000 Sodium Chloride 0.9% 50 ml @ 0.04 UNITS/MIN 6.12 mls/hr IV .Q8H20M [facility] Rx# :[id number] propofoL 1,000 mg In 173.090 92.157 114.258 Empty Bag 1 bag @ 15 MCG/ KG/MIN 6.255 mls/hr IV . Q16H [facility] Rx#:[id number] Oral 0 Output: Gastric Drainage 160 Drainage 0 0 0 Anterior Medial Abdomen 0 0 0 Urine 1715 1355 1000 Other: Voiding Method Indwelling Catheter Indwelling Catheter Indwelling Catheter # Bowel Movements 1 1 1 ABP, PAP, CO, CI - Last Documented Arterial Blood Pressure 107/51 - Exam GENERAL DESCRIPTION: An elderly male intubated on the vent RESPIRATORY SYSTEM: Unlabored breathing , decreased breath sounds at bases HEART: S1 S2 regular rate and rhythm , ABDOMEN: Soft , no tenderness EXTREMITIES: No edema feet - Labs CBC & Chem 7: 09/02/23 05:16 09/02/23 05:16 Labs: Abnormal Lab Results - Last 24 Hours (Table) 09/01/23 09/02/23 09/02/23 Range/Units 18:25 00:05 05:16 WBC (3.8-10.6) k/uL RBC (4.30-5.90) m/uL Hgb (13.0-17.5) gm/dL Hct (39.0-53.0) % RDW (11.5-15.5) % ABG pCO2 (35-45) mmHg ABG HCO3 (21-25) mmol/L ABG Total CO2 (19-24) mmol/L Potassium 3.3 L (3.5-5.1) mmol/L Carbon Dioxide 34 H (22-30) mmol/L BUN 52 H (9-20) mg/dL Creatinine 0.63 L (0.66-1.25) mg/dL Glucose 134 H (74-99) mg/dL POC Glucose (mg/dL) 117 H 131 H (70-110) mg/dL Calcium 7.4 L (8.4-10.2) mg/dL 09/02/23 09/02/23 09/02/23 Range/Units 05:16 05:53 05:57 WBC 11.1 H (3.8-10.6) k/uL RBC 3.20 L (4.30-5.90) m/uL Hgb 9.3 L (13.0-17.5) gm/dL Hct 28.8 L (39.0-53.0) % RDW 16.4 H (11.5-15.5) % ABG pCO2 50 H (35-45) mmHg ABG HCO3 35 H (21-25) mmol/L ABG Total CO2 36 H (19-24) mmol/L Potassium (3.5-5.1) mmol/L Carbon Dioxide (22-30) mmol/L BUN (9-20) mg/dL Creatinine (0.66-1.25) mg/dL Glucose (74-99) mg/dL POC Glucose (mg/dL) 141 H (70-110) mg/dL Calcium (8.4-10.2) mg/dL 09/02/23 09/02/23 Range/Units 06:20 11:41 WBC (3.8-10.6) k/uL RBC (4.30-5.90) m/uL Hgb (13.0-17.5) gm/dL Hct (39.0-53.0) % RDW (11.5-15.5) % ABG pCO2 (35-45) mmHg ABG HCO3 (21-25) mmol/L ABG Total CO2 (19-24) mmol/L Potassium (3.5-5.1) mmol/L Carbon Dioxide (22-30) mmol/L BUN (9-20) mg/dL Creatinine (0.66-1.25) mg/dL Glucose (74-99) mg/dL POC Glucose (mg/dL) 127 H 132 H (70-110) mg/dL Calcium (8.4-10.2) mg/dL Assessment and Plan (1) Fecal peritonitis Current Visit: Yes Status: Acute Code(s): K65.8 - OTHER PERITONITIS SNOMED Code(s): 243034910 (2) Leukocytosis Current Visit: No Status: Acute Code(s): D72.829 - ELEVATED WHITE BLOOD CELL COUNT, UNSPECIFIED SNOMED Code(s): 537722821 (3) Sepsis Current Visit: No Status: Acute Code(s): A41.9 - SEPSIS, UNSPECIFIED ORGANISM SNOMED Code(s): 31840180 Plan: 1patient with sepsis/septic shock in this patient who did have a tachycardia elevated white count source is fecal peritonitis in this patient who is status post extensive abdominal surgery for small bowel obstruction we will need to cover for enteric gram-negative both aerobes and anaerobes 2-abdominal cultures growing Klebsiella that is resistant to Unasyn as well as Zosyn though sensitive to meropenem and ertapenem as well as anaerobes 3-patient did have resolution of his fever patient white count is down to 11,000 today 4- patient to continue with meropenem and monitor clinical course closely Dictation was produced using [employer] dictation software. please excuse any grammatical, word or spelling errors. Time with Patient: Less than 30
--- NOTE | 2023-09-02 13:59 | P.PN ---
Subjective Progress Note Date: 09/02/23 (delayed charting seen at 0945) Patient is a 72-year-old male with a history of Hodgkin's lymphoma status post chemo radiation and splenectomy in the 1970s, atrial fibrillation, dyslipidemia, coronary artery disease with myocardial infarction and coronary artery bypass surgery, and prostate cancer who presented to the emergency department with complaints of nausea and vomiting. Patient was hospitalized here from 08/01/23 through 08/17/23 for ileus and possible pneumonia. He was treated conserva tively. On arrival to the ER he was tachycardic with a pulse of 107. Laboratory in the ER consisted of CBC, coags, and CMP and was remarkable for sodium 135, lactic acid 2.3, and AST of 60. Abdominal x-ray was consistent with ileus. NG tube was placed. Arrangements were made for admission. He underwent CT abdomen pelvis which shows high density contrast into the rectum suggesting no complete obstruction, but could still be a partial obstruction along with anasarca of the soft tissues. He was seen by surgery and subsequently underwent small bowel follow-through which showed contrast in the cecum due to residual suspicious for partial versus complete obstruction. Surgical team determined that he would require surgical intervention. They recommended PICC line for TPN. Cardiology was consulted and determined that the patient was in intermediate risk with no absolute contraindication for surgery. Echocardiogram was obtained which showed an ejection fraction of 25 to 30% with mild pulmonary hypertension and prior inferior wall myocardial infarction with hypokinesis, moderate to severe tricuspid regurgitation, and large pleural effusion. Pulmonary was also consulted for presurgical clearance due to the patient's large pleural effusion. Patient subsequently underwent left-sided thoracentesis on with removal of 1200 cc of fluid, on 08/24 the patient underwent right-sided thoracentesis with removal of 1100 cc of turbulent fluid. On 08/26 patient underwent exploratory laparotomy with lysis of adhesions, decompressive colectomy with closure, and peritoneal lavage. Postoperatively the patient remained intubated and was subsequently transferred to the ICU. He had issues with postoperative hypotension and atrial fibrillation. He required vasopressor support with norepinephrine. Patient was subsequently diagnosed with septic shock which was felt to be due to fecal peritonitis and infectious disease was consulted. Patient was started on Zosyn 3.375 g. Patient's hemodynamics continued to worsen requiring multiple pressors and he is subsequently started on vasopressin and epinephrine along with dobutamine. On 08/29 patient's surgical pathology became available which was consistent with metastatic adenocarcinoma involving subserosal tissue likely from the upper gastrointestinal or pancreatic biliary tract. Patient was able to be weaned off of Levophed by 09/01. Patient seen and examined at bedside. Discussed with nursing. No other acute events overnight. 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 -Await further surgery recs -Merrem 1 g every 8 hours IV day #5 -Patient requiring TPN -Patient currently requiring vasopressin, norepinephrine, and dobutamine -NG tube to LIS Acute on chronic systolic congestive heart failure with ejection fraction 25 to 30% Bilateral pleural effusion status bilateral postthoracentesis A fib wtih RVR - started on hepatin gtt - Lasix gtt at 5 mg/hr -Not a candidate for beta-carolyn, Aldactone, or TAINA/ARB due to hypotension. -Cardiology note reviewed: Patient changed to Lasix drips by ICU team. Patient has gone into A-fib with RVR. He was started on a heparin drip Chronic: Coronary artery disease status post coronary artery bypass grafting Hypothyroidism Dyslipidemia Resolved: Metabolic acidosis Prognosis guarded Imaging: CXR reviewed: Continued bilateral pleural effusions Data Review: Labs reviewed from today include CBC and CMP which are remarkable for white blood cell count 11.1, hemoglobin 9.3, potassium 3.3, BUN 52, creatinine 0.63 DVT prophylaxis: Lovenox Poor over all prognosis This dictation was prepared using [employer] voice recognition software. Though every attempt is made to correct errors during dictation some may still exist. Objective - Vital Signs Vital signs: Vital Signs Temp 98.2 F 09/02/23 12:00 Pulse 115 H 09/02/23 13:30 Resp 25 H 09/02/23 13:30 BP 135/63 08/29/23 06:15 Pulse Ox 97 09/02/23 13:30 FiO2 40 09/02/23 12:00 Intake & Output 09/01/23 09/02/23 09/02/23 18:59 06:59 18:59 Intake Total 3209.245 1522.218 4197.925 Output Total 1715 1515 1400 Balance 1494.245 -374.320 -289.075 Weight 86.9 kg 85.6 kg Intake: IV 1557 942 514 KVO 5 Meropenem 1 gm In Sodium 100 99 Chloride 0.9% 100 ml @ 33 .3 mls/hr IVPB Q8H [facility] Rx #:[id number] Mvi, Adult No.4 with Vit 780 65 390 K 10 ml Trace (Conc-1Ml/ Dose) 1 ml Sodium Acetate 60 meq In Amino Acid 5%- D20w+Lytes*E* 1,000 ml @ 65 mls/hr IV .BY DURATION [facility] Rx#:[id number] NS 600 650 NS Pressure Pack 72 78 24 Potassium Chloride 20 meq 50 100 In Water For Injection 1 100ml.bag @ 50 mls/hr IVPB Q2H [facility] Rx#: [id number] Intake, IV Titration 1652.245 198.680 596.925 Amount DOBUTamine DRIP 500 mg In 250 243.731 Dextrose/Water 1 250ml. bag @ 5 MCG/KG/MIN 11.31 mls/hr IV .Q22H7M [facility] Rx# :[id number] Furosemide 100 mg In 25 Sodium Chloride 0.9% 90 ml @ 5 MG/HR 5 mls/hr IV .Q20H [facility] Rx#:[id number] Meropenem 1 gm In Sodium 100 Chloride 0.9% 100 ml @ 33 .3 mls/hr IVPB Q8H [facility] Rx #:[id number] Mvi, Adult No.4 with Vit 1041 K 10 ml Trace (Conc-1Ml/ Dose) 1 ml Sodium Acetate 60 meq In Amino Acid 5%- D20w+Lytes*E* 1,000 ml @ 65 mls/hr IV .BY DURATION [facility] Rx#:[id number] Norepinephrine 32 mg In 38.685 14.213 0.972 Sodium Chloride 0.9% 218 ml @ 0.4 MCG/KG/MIN 14. 138 mls/hr IV .Q22H18B [facility] Rx#:[id number] Potassium Chloride 20 meq 100 In Water For Injection 1 100ml.bag @ 50 mls/hr IVPB Q2H [facility] Rx#: [id number] Sodium Chloride 0.9% 1, 60 000 ml @ 10 mls/hr IV . Q24H [facility] Rx#:[id number] Vasopressin 20 unit In 49.47 92.310 52.964 Sodium Chloride 0.9% 50 ml @ 0.04 UNITS/MIN 6.12 mls/hr IV .Q8H20M [facility] Rx# :[id number] propofoL 1,000 mg In 173.090 92.157 114.258 Empty Bag 1 bag @ 15 MCG/ KG/MIN 6.255 mls/hr IV . Q16H [facility] Rx#:[id number] Oral 0 Output: Gastric Drainage 160 Drainage 0 0 0 Anterior Medial Abdomen 0 0 0 Urine 1715 1355 1400 Other: Voiding Method Indwelling Catheter Indwelling Catheter Indwelling Catheter # Bowel Movements 1 1 1 ABP, PAP, CO, CI - Last Documented Arterial Blood Pressure 118/61 - Labs CBC & Chem 7: 09/02/23 05:16 09/02/23 05:16 Labs: Abnormal Lab Results - Last 24 Hours (Table) 09/01/23 09/02/23 09/02/23 Range/Units 18:25 00:05 05:16 WBC (3.8-10.6) k/uL RBC (4.30-5.90) m/uL Hgb (13.0-17.5) gm/dL Hct (39.0-53.0) % RDW (11.5-15.5) % ABG pCO2 (35-45) mmHg ABG HCO3 (21-25) mmol/L ABG Total CO2 (19-24) mmol/L Potassium 3.3 L (3.5-5.1) mmol/L Carbon Dioxide 34 H (22-30) mmol/L BUN 52 H (9-20) mg/dL Creatinine 0.63 L (0.66-1.25) mg/dL Glucose 134 H (74-99) mg/dL POC Glucose (mg/dL) 117 H 131 H (70-110) mg/dL Calcium 7.4 L (8.4-10.2) mg/dL 09/02/23 09/02/2309/01/24 Range/Units 05:16 05:53 05:57 WBC 11.1 H (3.8-10.6) k/uL RBC 3.20 L (4.30-5.90) m/uL Hgb 9.3 L (13.0-17.5) gm/dL Hct 28.8 L (39.0-53.0) % RDW 16.4 H (11.5-15.5) % ABG pCO2 50 H (35-45) mmHg ABG HCO3 35 H (21-25) mmol/L ABG Total CO2 36 H (19-24) mmol/L Potassium (3.5-5.1) mmol/L Carbon Dioxide (22-30) mmol/L BUN (9-20) mg/dL Creatinine (0.66-1.25) mg/dL Glucose (74-99) mg/dL POC Glucose (mg/dL) 141 H (70-110) mg/dL Calcium (8.4-10.2) mg/dL 09/02/23 09/02/23 Range/Units 06:20 11:41 WBC (3.8-10.6) k/uL RBC (4.30-5.90) m/uL Hgb (13.0-17.5) gm/dL Hct (39.0-53.0) % RDW (11.5-15.5) % ABG pCO2 (35-45) mmHg ABG HCO3 (21-25) mmol/L ABG Total CO2 (19-24) mmol/L Potassium (3.5-5.1) mmol/L Carbon Dioxide (22-30) mmol/L BUN (9-20) mg/dL Creatinine (0.66-1.25) mg/dL Glucose (74-99) mg/dL POC Glucose (mg/dL) 127 H 132 H (70-110) mg/dL Calcium (8.4-10.2) mg/dL
[2023-09-02 14:00] LABS: INR 0.9 (<1.2); Partial Thromboplastin Time 28.3 sec (22.0-30.0); Prothrombin Time 9.9 sec (10.0-12.5)
--- NOTE | 2023-09-02 14:00 | P.PN ---
Subjective Progress Note Date: 09/02/23 Principal diagnosis: Pt seen and evaluated at bedside. Currently intubated. no overnight events per nursing. Objective - Vital Signs Vital signs: Vital Signs Temp 98.2 F 09/02/23 12:00 Pulse 115 H 09/02/23 13:30 Resp 25 H 09/02/23 13:30 BP 135/63 08/29/23 06:15 Pulse Ox 97 09/02/23 13:30 FiO2 40 09/02/23 12:00 Intake & Output 09/01/23 09/02/23 09/02/23 18:59 06:59 18:59 Intake Total 3209.245 9735.349 7213.313 Output Total 1715 1515 1400 Balance 1494.245 -374.320 -291.687 Weight 86.9 kg 85.6 kg Intake: IV 1557 942 514 KVO 5 Meropenem 1 gm In Sodium 100 99 Chloride 0.9% 100 ml @ 33 .3 mls/hr IVPB Q8H [facility] Rx #:[id number] Mvi, Adult No.4 with Vit 780 65 390 K 10 ml Trace (Conc-1Ml/ Dose) 1 ml Sodium Acetate 60 meq In Amino Acid 5%- D20w+Lytes*E* 1,000 ml @ 65 mls/hr IV .BY DURATION [facility] Rx#:[id number] NS 600 650 NS Pressure Pack 72 78 24 Potassium Chloride 20 meq 50 100 In Water For Injection 1 100ml.bag @ 50 mls/hr IVPB Q2H [facility] Rx#: [id number] Intake, IV Titration 1652.245 198.680 594.313 Amount DOBUTamine DRIP 500 mg In 250 243.731 Dextrose/Water 1 250ml. bag @ 5 MCG/KG/MIN 11.31 mls/hr IV .Q22H7M [facility] Rx# :[id number] Furosemide 100 mg In 25 Sodium Chloride 0.9% 90 ml @ 5 MG/HR 5 mls/hr IV .Q20H [facility] Rx#:[id number] Meropenem 1 gm In Sodium 100 Chloride 0.9% 100 ml @ 33 .3 mls/hr IVPB Q8H [facility] Rx #:[id number] Mvi, Adult No.4 with Vit 1041 K 10 ml Trace (Conc-1Ml/ Dose) 1 ml Sodium Acetate 60 meq In Amino Acid 5%- D20w+Lytes*E* 1,000 ml @ 65 mls/hr IV .BY DURATION [facility] Rx#:[id number] Norepinephrine 32 mg In 38.685 14.213 0.324 Sodium Chloride 0.9% 218 ml @ 0.4 MCG/KG/MIN 14. 138 mls/hr IV .[id number] [facility] Rx#:[id number] Potassium Chloride 20 meq 100 In Water For Injection 1 100ml.bag @ 50 mls/hr IVPB Q2H [facility] Rx#: [id number] Sodium Chloride 0.9% 1, 60 000 ml @ 10 mls/hr IV . Q24H [facility] Rx#:[id number] Vasopressin 20 unit In 49.47 92.310 51.000 Sodium Chloride 0.9% 50 ml @ 0.04 UNITS/MIN 6.12 mls/hr IV .Q8H20M [facility] Rx# :[id number] propofoL 1,000 mg In 173.090 92.157 114.258 Empty Bag 1 bag @ 15 MCG/ KG/MIN 6.255 mls/hr IV . Q16H [facility] Rx#:[id number] Oral 0 Output: Gastric Drainage 160 Drainage 0 0 0 Anterior Medial Abdomen 0 0 0 Urine 1715 1355 1400 Other: Voiding Method Indwelling Catheter Indwelling Catheter Indwelling Catheter # Bowel Movements 1 1 1 ABP, PAP, CO, CI - Last Documented Arterial Blood Pressure 118/61 - Gastrointestinal Gastrointestinal Comment(s): gen: nad cv: rrr pul: non labored on vent abd: firm, no rebound tenderness, surgical incision c/d/i ext: b/l edema - Labs CBC & Chem 7: 09/02/23 05:16 09/02/23 05:16 Labs: Abnormal Lab Results - Last 24 Hours (Table) 09/01/23 09/02/23 09/02/23 Range/Units 18:25 00:05 05:16 WBC (3.8-10.6) k/uL RBC (4.30-5.90) m/uL Hgb (13.0-17.5) gm/dL Hct (39.0-53.0) % RDW (11.5-15.5) % ABG pCO2 (35-45) mmHg ABG HCO3 (21-25) mmol/L ABG Total CO2 (19-24) mmol/L Potassium 3.3 L (3.5-5.1) mmol/L Carbon Dioxide 34 H (22-30) mmol/L BUN 52 H (9-20) mg/dL Creatinine 0.63 L (0.66-1.25) mg/dL Glucose 134 H (74-99) mg/dL POC Glucose (mg/dL) 117 H 131 H (70-110) mg/dL Calcium 7.4 L (8.4-10.2) mg/dL 09/02/23 09/02/23 09/02/23 Range/Units 05:16 05:53 05:57 WBC 11.1 H (3.8-10.6) k/uL RBC 3.20 L (4.30-5.90) m/uL Hgb 9.3 L (13.0-17.5) gm/dL Hct 28.8 L (39.0-53.0) % RDW 16.4 H (11.5-15.5) % ABG pCO2 50 H (35-45) mmHg ABG HCO3 35 H (21-25) mmol/L ABG Total CO2 36 H (19-24) mmol/L Potassium (3.5-5.1) mmol/L Carbon Dioxide (22-30) mmol/L BUN (9-20) mg/dL Creatinine (0.66-1.25) mg/dL Glucose (74-99) mg/dL POC Glucose (mg/dL) 141 H (70-110) mg/dL Calcium (8.4-10.2) mg/dL 09/02/23 09/02/23 Range/Units 06:20 11:41 WBC (3.8-10.6) k/uL RBC (4.30-5.90) m/uL Hgb (13.0-17.5) gm/dL Hct (39.0-53.0) % RDW (11.5-15.5) % ABG pCO2 (35-45) mmHg ABG HCO3 (21-25) mmol/L ABG Total CO2 (19-24) mmol/L Potassium (3.5-5.1) mmol/L Carbon Dioxide (22-30) mmol/L BUN (9-20) mg/dL Creatinine (0.66-1.25) mg/dL Glucose (74-99) mg/dL POC Glucose (mg/dL) 127 H 132 H (70-110) mg/dL Calcium (8.4-10.2) mg/dL Assessment and Plan Assessment: 72 yo male POD #5 Lysis of adhesions w/ deompressive colotomy, suspicious for primary pancreatic ca -discussed w/ nursing/lead miner blasting, concerned for abdominal compartment syndrome however patient does not have increasing ventilator requirements, no significant decrease in urine output, and normotensive. given these findings i am less concerned. Continue to monitor for bowel fun ction. Time with Patient: Greater than 30
[2023-09-02] MEDS ORDERED: Potassium Replacement Protocol 1 EACH MISC MISCELLANE PRN (14:23)
[2023-09-02 18:12] LABS: Glucose,Whole Blood 90 mg/dL (70-110)
[2023-09-02 23:10] LABS: Glucose,Whole Blood 118 mg/dL (70-110)
[2023-09-03 05:09] LABS: ABG Base Excess 14.5 mmol/L; ABG HCO3 38 mmol/L (21-25); ABG Oxygen Saturation 97.1 % (94-97); ABG PCO2 52 mmHg (35-45); ABG PH 7.47 (7.35-7.45); ABG PO2 106 mmHg (83-108); ABG TCO2 40 mmol/L (19-24)
[2023-09-03 05:36] LABS: Anisocytosis Slight; HCT 29.4 % (39.0-53.0); HGB 9.5 gm/dL (13.0-17.5); Hypochromasia Slight; MCH 28.9 pg (25.0-35.0); MCHC 32.4 g/dL (31.0-37.0); MCV 89.4 fL (80.0-100.0); Mean Platelet Volume 11.9; Platelet Count 228 k/uL (150-450); RBC 3.29 m/uL (4.30-5.90); RDW 16.5 % (11.5-15.5)
[2023-09-03 05:39] LABS: Glucose,Whole Blood 112 mg/dL (70-110)
[2023-09-03 06:34] LABS: Band Neutrophils % 14 %; Eosinophils # (M) 0.38 k/uL (0-0.7); Lymphocytes # (M) 0.51 k/uL (1.0-4.8); Monocytes # (M) 0.64 k/uL (0-1.0); Neutrophils % (M) 75 %; Nucleated Red Blood Cells 4 /100 WBC (0-0); Total Cells Counted 200; WBC 12.7 k/uL (3.8-10.6)
[2023-09-03 06:35] LABS: Anisocytosis (M) Present; Crenated RBC Present; Ovalocytes Present; Target Cells Present; Tear Drop Cells Present
[2023-09-03 06:47] LABS: African American GFR (CKD) >90 (>60 ml/min/1.73 sqM); Anion Gap 4 mmol/L; Blood Urea Nitrogen 55 mg/dL (9-20); Calcium 7.6 mg/dL (8.4-10.2); Carbon Dioxide 35 mmol/L (22-30); Chloride 104 mmol/L (98-107); Glucose 117 mg/dL (74-99); Non-African American GFR(CKD) 87 (>60 ml/min/1.73 sqM); Potassium 4.1 mmol/L (3.5-5.1); Sodium 143 mmol/L (137-145)
[2023-09-03 06:53] LABS: Allen Test Performed? no
--- NOTE | 2023-09-03 08:21 | XR ---
EXAMINATION TYPE: XR chest 1V portable DATE OF EXAM: 09/03/2023 Comparison: 09/02/2023 Clinical History: 72-year-old male pleural effusion Findings: Left anterior chest wall AICD generator with right ventricular lead. Median sternotomy wires with pos t-CABG clips. Heart margins are obscured by ongoing extensive pleural-parenchymal opacity and diffuse hazy density throughout the lungs. Right PICC tip likely lower SVC. Right CVC tip cavoatrial junctio n. ET and NG tubes are present. Impression: Stable exam with suspected mild pulmonary edema. Ongoing moderate bilateral pleural effusions with ad jacent atelectasis and/or consolidation.
--- NOTE | 2023-09-03 11:13 | P.PN ---
Subjective Progress Note Date: 09/03/23 (delayed charting seen at 0845) Patient is a 72-year-old male with a history of Hodgkin's lymphoma status post chemo radiation and splenectomy in the 1970s, atrial fibrillation, dyslipidemia, coronary artery disease with myocardial infarction and coronary artery bypass surgery, and prostate cancer who presented to the emergency department with complaints of nausea and vomiting. Patient was hospitalized here from 08/01/23 through 08/17/23 for ileus and possible pneumonia. He was treated conserva tively. On arrival to the ER he was tachycardic with a pulse of 107. Laboratory in the ER consisted of CBC, coags, and CMP and was remarkable for sodium 135, lactic acid 2.3, and AST of 60. Abdominal x-ray was consistent with ileus. NG tube was placed. Arrangements were made for admission. He underwent CT abdomen pelvis which shows high density contrast into the rectum suggesting no complete obstruction, but could still be a partial obstruction along with anasarca of the soft tissues. He was seen by surgery and subsequently underwent small bowel follow-through which showed contrast in the cecum due to residual suspicious for partial versus complete obstruction. Surgical team determined that he would require surgical intervention. They recommended PICC line for TPN. Cardiology was consulted and determined that the patient was in intermediate risk with no absolute contraindication for surgery. Echocardiogram was obtained which showed an ejection fraction of 25 to 30% with mild pulmonary hypertension and prior inferior wall myocardial infarction with hypokinesis, moderate to severe tricuspid regurgitation, and large pleural effusion. Pulmonary was also consulted for presurgical clearance due to the patient's large pleural effusion. Patient subsequently underwent left-sided thoracentesis on with removal of 1200 cc of fluid, on 08/24 the patient underwent right-sided thoracentesis with removal of 1100 cc of turbulent fluid. On 08/26 patient underwent exploratory laparotomy with lysis of adhesions, decompressive colectomy with closure, and peritoneal lavage. Postoperatively the patient remained intubated and was subsequently transferred to the ICU. He had issues with postoperative hypotension and atrial fibrillation. He required vasopressor support with norepinephrine. Patient was subsequently diagnosed with septic shock which was felt to be due to fecal peritonitis and infectious disease was consulted. Patient was started on Zosyn 3.375 g. Patient's hemodynamics continued to worsen requiring multiple pressors and he is subsequently started on vasopressin and epinephrine along with dobutamine. On 08/29 patient's surgical pathology became available which was consistent with metastatic adenocarcinoma involving subserosal tissue likely from the upper gastrointestinal or pancreatic biliary tract. Patient was able to be weaned off of Levophed by 09/01, he then had an episode of A fib with RVR and was started on heparin and cardio transitioned him off vaso and back on to norepinephrine. Patient seen and examined at bedside. He was transition from vasopressin to norepinephrine yesterday for an episode of A-fib with RVR which converted after 3 hours. No other acute events per nursing. 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 -Cardiology Await further cardio recs Chronic: Coronary artery disease status post coronary artery bypass grafting Hypothyroidism Dyslipidemia Resolved: Metabolic acidosis Prognosis guarded Imaging: Chest x-ray reviewed with continued bilateral pleural effusions. Data Review: Labs reviewed from today include CBC and CMP which are remarkable for white blood cell count 12.7, hemoglobin 9.5, BUN 55, magnesium 2.4. Fecal occult blood is positive which is an anticipated result as the patient recently underwent abdominal surgery. DVT prophylaxis: Lovenox Poor over all prognosis This dictation was prepared using [employer] voice recognition software. Though every attempt is made to correct errors during dictation some may still exist. Objective - Vital Signs Vital signs: Vital Signs Temp 98 F 09/03/23 08:00 Pulse 107 H 09/03/23 10:00 Resp 22 09/03/23 10:00 BP 135/63 08/29/23 06:15 Pulse Ox 93 L 09/03/23 10:00 FiO2 35 09/03/23 09:19 Intake & Output 09/02/23 09/03/23 09/03/23 17:59 06:59 18:59 Intake Total 589.309 Output Total 830 Balance -240.691 Intake: IV 284 Mvi, Adult No.4 with Vit K 10 ml Trace (Conc-1Ml/ Dose) 1 ml Sodium Acetate 60 meq In Amino Acid 5%- D20w+Lytes*E* 1,000 ml @ 65 mls/hr IV .BY DURATION [facility] Rx#:[id number] NS NS Pressure Pack 24 Potassium Chloride 20 meq In Water For Injection 1 100ml.bag @ 50 mls/hr IVPB Q2H [facility] Rx#: [id number] Sodium Acetate 40 meq 260 Potassium Chloride 30 meq In Amino Acid 5%-D20w+ Lytes*E* 1,000 ml @ 65 mls/hr IV .BY DURATION [facility] Rx#:[id number] Intake, IV Titration 305.309 Amount DOBUTamine DRIP 500 mg In 223.184 Dextrose/Water 1 250ml. bag @ 5 MCG/KG/MIN 11.31 mls/hr IV .Q22H7M [facility] Rx# :[id number] Furosemide 100 mg In Sodium Chloride 0.9% 90 ml @ 5 MG/HR 5 mls/hr IV .Q20H [facility] Rx#:[id number] Heparin Sod,Pork in 0.45% NaCl 25,000 unit In 0.45 % NaCl 1 250ml.bag @ 11.7 UNITS/KG/HR 10.015 mls/ hr IV .Q24H [facility] Rx#: [id number] Meropenem 1 gm In Sodium Chloride 0.9% 100 ml @ 33 .3 mls/hr IVPB Q8H [facility] Rx #:[id number] Norepinephrine 32 mg In Sodium Chloride 0.9% 218 ml @ 0.4 MCG/KG/MIN 14. 138 mls/hr IV .[id number] [facility] Rx#:[id number] Potassium Chloride 20 meq In Water For Injection 1 100ml.bag @ 50 mls/hr IVPB Q2H [facility] Rx#: [id number] Sodium Chloride 0.9% 1, 30 000 ml @ 10 mls/hr IV . Q24H [facility] Rx#:[id number] Vasopressin 20 unit In Sodium Chloride 0.9% 50 ml @ 0.04 UNITS/MIN 6.12 mls/hr IV .Q8H20M [facility] Rx# :[id number] propofoL 1,000 mg In 52.125 Empty Bag 1 bag @ 15 MCG/ KG/MIN 6.255 mls/hr IV . Q16H [facility] Rx#:[id number] Output: Gastric Drainage 175 Drainage 45 Anterior Medial Abdomen prevena 45 Urine 610 Other: Voiding Method Indwelling Catheter # Bowel Movements ABP, PAP, CO, CI - Last Documented Arterial Blood Pressure 108/54 - Labs CBC & Chem 7: 09/03/23 04:53 09/03/23 04:53 Labs: Abnormal Lab Results - Last 24 Hours (Table) 09/02/23 09/02/23 09/02/23 Range/Units 11:41 13:00 18:40 WBC (3.8-10.6) k/uL RBC (4.30-5.90) m/uL Hgb (13.0-17.5) gm/dL Hct (39.0-53.0) % RDW (11.5-15.5) % Neutrophils # (Manual) (1.3-7.7) k/uL Lymphocytes # (Manual) (1.0-4.8) k/uL Nucleated RBCs (0-0) /100 WBC PT 9.9 L (10.0-12.5) sec APTT 55.4 H (22.0-30.0) sec ABG pH (7.35-7.45) ABG pCO2 (35-45) mmHg ABG HCO3 (21-25) mmol/L ABG Total CO2 (19-24) mmol/L ABG O2 Saturation (94-97) % Carbon Dioxide (22-30) mmol/L BUN (9-20) mg/dL Glucose (74-99) mg/dL POC Glucose (mg/dL) 132 H (70-110) mg/dL Calcium (8.4-10.2) mg/dL Magnesium (1.6-2.3) mg/dL 09/02/23 09/03/23 09/03/23 Range/Units 23:10 04:53 04:53 WBC 12.7 H (3.8-10.6) k/uL RBC 3.29 L (4.30-5.90) m/uL Hgb 9.5 L (13.0-17.5) gm/dL Hct 29.4 L (39.0-53.0) % RDW 16.5 H (11.5-15.5) % Neutrophils # (Manual) 11.30 H (1.3-7.7) k/uL Lymphocytes # (Manual) 0.51 L (1.0-4.8) k/uL Nucleated RBCs 4 H (0-0) /100 WBC PT (10.0-12.5) sec APTT (22.0-30.0) sec ABG pH (7.35-7.45) ABG pCO2 (35-45) mmHg ABG HCO3 (21-25) mmol/L ABG Total CO2 (19-24) mmol/L ABG O2 Saturation (94-97) % Carbon Dioxide (22-30) mmol/L BUN (9-20) mg/dL Glucose (74-99) mg/dL POC Glucose (mg/dL) 118 H (70-110) mg/dL Calcium (8.4-10.2) mg/dL Magnesium 2.4 H (1.6-2.3) mg/dL 09/03/23 09/03/23 09/03/23 Range/Units 04:53 05:08 05:38 WBC (3.8-10.6) k/uL RBC (4.30-5.90) m/uL Hgb (13.0-17.5) gm/dL Hct (39.0-53.0) % RDW (11.5-15.5) % Neutrophils # (Manual) (1.3-7.7) k/uL Lymphocytes # (Manual) (1.0-4.8) k/uL Nucleated RBCs (0-0) /100 WBC PT (10.0-12.5) sec APTT (22.0-30.0) sec ABG pH 7.47 H (7.35-7.45) ABG pCO2 52 H (35-45) mmHg ABG HCO3 38 H (21-25) mmol/L ABG Total CO2 40 H (19-24) mmol/L ABG O2 Saturation 97.1 H (94-97) % Carbon Dioxide 35 H (22-30) mmol/L BUN 55 H (9-20) mg/dL Glucose 117 H (74-99) mg/dL POC Glucose (mg/dL) 112 H (70-110) mg/dL Calcium 7.6 L (8.4-10.2) mg/dL Magnesium (1.6-2.3) mg/dL Microbiology - Last 24 Hours (Table) 08/28/23 09:12 Blood Culture - Final Blood
[2023-09-03 11:46] LABS: Glucose,Whole Blood 100 mg/dL (70-110)
--- NOTE | 2023-09-03 12:25 | P.PN ---
Subjective Progress Note Date: 09/03/23 Principal diagnosis: Acute small bowel obstruction I was asked to evaluate this patient regarding bilateral pleural effusions. The patient was admitted on 08/20/2023 for complaints of nausea and emesis. The patient is known to me from a previous hospitalization between 08/01/2023 and 08/17/2023. At that time, the patient was quite ill and he was seen and evaluated in the intensive care unit for shock/hypotension which was thought to be septic in nature. At time, the patient also had ileus/small bowel obstruction and ischemic colitis and the patient was treated conservatively and following his discharge he was tolerating full liquid diet but not regular.. Septic shock was highly suspected and the patient is immunocompromised due to his previous splenectomy. The patient was treated and the patient was discharged to be readmitted after a short period of time. He is known to have severe cardiomyopathy with an ejection fraction of 30 to 35%. He has coronary artery disease with previous [place] and previous coronary bypass surgery. He also has bilateral pleural effusion and we have performed a right-sided thoracentesis on this patient on 08/10/2023 and based on that pleural fluid analysis, the patient had a transudate with low LDH and protein in the pleural fluid cytology collected was negative for malignancy. Note that, at that time, the patient had a total of 1.2 L of pleural fluid aspirated from the right lung without any complications. He is also known to have history of Hodgkin's lymphoma with a previous splenectomy followed by chemoradiation therapy this was performed in 1976 in 1977. He is known to have prostate cancer, hypothyroidism, hyperlipide alvino. During this current admission, the patient was seen and evaluated by general surgery. Regarding his progressive abdominal distention and nausea and emesis. The patient during this current admission underwent a small bowel follow-through and the patient was found to have findings suspicious for partial versus complete obstruction. Based on that, the patient is currently being considered for surgical exploration. He was supposed to go for surgery today and there was concern about his respiratory status as the patient had developed also bilateral pleural effusions. Based on that, pulmonary consultation was requested. He currently has an NG tube for decompression. He also has TPN for nutritional support. He is not receiving any form of antibiotics. He remains on oral Diflucan only. His white cell count is at 12 with a hemoglobin 12.5 and a platelet count of 369. BUN is at 20 with a creatinine 0.7. Sodium is at 139. Most recent echocardiogram that was done today showed impairment of LV function with an ejection fraction of 25 to 30%. There was also inferior wall hypoki nesis and moderate MR and moderate aortic regurgitation and moderate to severe tricuspid regurgitation. The chest x-ray from today showing bilateral pleural effusion slightly worse on the left. The patient has an NG tube in place. On today's evaluation of 2023, the patient is being seen for a follow-up he is calm and comfortable on room air oxygen. I performed a left-sided thoracentesis on this patient yesterday with a total of 1.2 L of fluid drained. The right side will be done today as the patient is being prepped and optimized for surgery. He is still NPO. He has an NG tube in place. Output is still active. Abdomen is distended. It is not tender. Postprocedure chest x-ray s howed no evidence of any pneumothorax. There is residual right-sided pleural effusion. BUN is at 21 with a creatinine of 0.7. Sodium level is at 136 and the patient remains on TPN for nutritional support. No other significant events overnight. 08/27/2023, the patient is being seen in follow-up. The patient was taken to the operating room and the patient underwent expiratory laparotomy and extensive lysis of adhesions was done. Decompression of the bowel was done with closure and this involves a decompression colotomy with closure and this involved the transverse colon. Peritoneal lavage was done with a total of 3 L. The incision was closed and a wound VAC was applied. Postop, the patient was kept intubated on mechanical ventilator and he was transferred to the intensive care unit. He was having some difficulties with hypotension preoperatively and he did have short runs of atrial fibrillation. His current rhythm is sinus. He is currently on propofol running at 25 mcg/kg/min. The patient is hemodynamically hypotensive and he is on norepinephrine at 0.08 mcg/kg/min. He was given a total of 1.5 L of fluid in the operating room. Another 1 L bolus will be given to him right now. He is maintenance fluid to be increased up to 150 cc an hour. He is currently on assist-control of 14, tidal volume of 400, FiO2 is 100% with a PEEP of 5 and the patient's pH was at 7.4 with a pCO2 of 47 and pO2 of more than 100. FiO2 was weaned down to 40%.. Chest x-ray showed NG tube being in good location. There is trace pleural effusion and there is a triple-lumen catheter in the right IJ which seems to be in good location for now. The blood work from this morning showed a BUN of 31 with a creatinine of 0.7 and his sodium level was at 134 and the potassium level was at 3.4. He is well sedated and synchronous with mechanical ventilator. He remains on TPN for nutritional support. No other significant issues for now. The Lopressor disaster will be placed on hold for now. Will also hold on his Lasix. Patient was reevaluated today on 08/28/2023, patient remains in the ICU, intubated and mechanically ventilated. Patient is status post expiratory laparotomy and extensive lysis of adhesions was done. Postoperative day #1. Remains intubated and mechanically ventilated. Patient is on assist-control rate of 16 tidal volume 400 FiO2 40% and PEEP of 5. ABG showed a pO2 of 99 pCO2 42 pH of 7.32. Blood pressure is marginal in spite of maximal therapy with norepinephrine at 0.5 mcg/kg/min, he is also on vasopressin at 0.03 units/min, patient is receiving propofol at 35 mg/kg/min, IV fluid is running at 150 cc/h. Patient is also receiving TPN, and he has received albumin. Intermittently the patient was receiving Lasix which I placed on hold because of his marginal blood pressure. Antibiotics graf patient remains on Zosyn and Diflucan. Apparently the patient was found to have fecal peritonitis when he underwent exploratory laparotomy. WBC count today is 21.5 hemoglobin 11.9. ABG showed a pO2 of 99 pCO2 42 pH of 7.32 basic metabolic profile is normal renal profile is normal chest x-ray is showing evidence of small bilateral pleural effusions and I suspect mild interstitial edema echocardiogram on this admission showed LV dysfunction, patient may improve with dobutamine, and I will try to go on a trial of dobutamine at 2.5 mcg/kg/min Patient was reevaluated today on 11/16, remains in the ICU intubated and mechanically ventilated. Patient is quite unstable, he is hemodynamically doing poorly, requiring multiple pressors and inotropes. He is now on norepinephrine at 0.5 mcg/kg/min/maxed vasopressin at 0.04 units/min, max patient is on epinep hrine at 0.05 mcg/kg/min being titrated, he is also on propofol, dobutamine 5 mcg/kg/min patient is receiving TPN, and is also on Merrem. ABG this morning showed a pO2 of 79 pCO2 39 pH of 7.36, and this is on assist-control rate of 16 tidal volume 400 FiO2 40% and PEEP of 5. Chest x-ray continues to show evidence of pulmonary edema, patient will definitely benefit from diuresis, however his blood pressure seems to be an issue, may gently diurese today. Otherwise his pulmonary status may deteriorate and the patient may end up requiring higher FiO2 and higher PEEP patient has continued leukocytosis with WBC count of 35.9 hemoglobin 11 basic metabolic profile is normal renal profile is normal condition graf, patient is on TPN at 65 cc/h. Propofol is at 30 mcg/kg/min Patient was reevaluated today on 08/30/2023, remains in the ICU, intubated and mechanically ventilated. Patient is on assist-control rate of 16 tidal volume 400 FiO2 40% and PEEP of 5. Chest x-ray is showing worsening bilateral pleural effusions and pulmonary edema, hence Lasix was given today. Patient remains on pressors and inotropes including norepinephrine, vasopressin, dobutamine, he is off epinephrine. Overall the patient is about the same, he is sedated, on propofol and is also on fentanyl. There is pulmonary edema, Lasix was given, and this will be given 40 mg IV push twice daily for biotics graf patient remains on Merrem, nutrition graf patient is receiving TPN ABG showed a pO2 of 111 pCO2 44 pH of 7.34. Basic metabolic profile is normal, CBC is showing significant leukocytosis with WBC count of 34.1 hemoglobin is 10.3 renal profile is normal with BUN of 36 creatinine 0.8 overall the patient is not doing well, remains on propofol and he is not ready for any form of weaning trials at this point Patient was reevaluated today on 08/31/2023, remains in the ICU, remains intubated and mechanically ventilated. Patient is on assist-control rate of 16 tidal volume 400 FiO2 45% PEEP of 5 ABG showed a pO2 of 111 pCO2 54 pH of 7.32, hence his rate was increased up to 18 and his FiO2 was cut down to 40%. Patient remains on multiple drips including vasopressin at 0.04, norepinephrine at 0.35 mcg/kg/min, dobutamine at 5 mg/kg/min propofol at 30 mcg/kg/min he is also on TPN at 65 cc/h IV fluid 50 cc/h of 0.9 normal saline. Remains on Lasix at 40 mg IV push twice daily. Chest x-ray continues to show evidence of pulmonary edema with bilateral pleural effusions, however the patient is responding to Lasix and he continues to have significant and good urine output. The pathology on his bowel tissue came back showing evidence of metastatic disease to the GI tract, most likely the primary source is either pancreatic or hepatobiliary. Family was notified about the diagnosis by Dr. Andino on the case WBC count today is 28.7 hemoglobin is 9.9. Platelets are 264. Basic metabolic profile is normal renal profile is normal bicarb is 25, chest x-ray continues to show evidence of ongoing congestive heart failure and moderate bilateral pleural effusions Patient was evaluated today on 09/01/2023, remains in the ICU, intubated and mechanically ventilated. Patient remains on assist-control rate of 18 tidal volume 400 FiO2 40% and PEEP of 5 ABG showed a pO2 of 85 pCO2 49 pH of 7.42. Hence no ventilator changes were made today. 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 Basic metabolic profile is normal, BUN is 46 creatinine is 0.74 Patient was reevaluated today on 09/02/2023, remains in the ICU, intubated and mechanically ventilated. Patient is on assist-control rate of 18 tidal volume 400 FiO2 40% and PEEP of 5 ABG showed a pO2 of 102 pCO2 50 pH of 7.45 patient remains on multiple drips including dobutamine at 5 mcg/kg/min, propofol propofol at 30 mcg/kg/min, vasopressin at 0.04 units/min, TPN at 65 mL/h patient remains on Merrem and today I changed IV Lasix to Lasix infusion at 5 mg/h since the patient remains swollen and edematous and continues to have large bilateral pleural effusion. Meantime the plan is to hold on sedation today, and daily assessment of mental status, although I believe the patient has extremely very poor prognosis. Chest x-ray continues to show bilateral pleural effusions and evidence of pulmonary edema Patient evaluated today on 09/03/2023, patient remains in the ICU, intubated and mechanically ventilated. Last night the patient was weaned off vasopressin, and while he went off sedation to assess mental status, patient developed an episode of atrial fibrillation with RVR. And hypotension. He is now on norepinephrine again at 0.11 mcg/kg/min. Patient is off vasopressin, remains on dobutamine at 5 mg/kg/min propofol at 40 mcg/kg/min and is also on Lasix drip at 5 mg/h. Vent graf the patient is on assist-control rate of 18 tidal volume 400 FiO2 40% and PEEP of 5 ABG showed a pO2 of 106 pCO2 52 pH of 7.47 hence FiO2 was cut down to 35%. Patient is now about the same, the biggest concern about this patient is the fact that we are not getting to a point where I could fully assess his mental status and decide on further weaning although I doubt the patient will wean successfully. His CODE STATUS has been changed to DNR CODE STATUS, and a tracheostomy as well as PEG tube are not an option. Hoping family will make a decision about comfort care on this patient, and I think that would be the most reasonable approach. Dimensions the patient had positive pathology from his bowel resection showing metastatic pancreatic or hepatobiliary adenocarcinoma. WBC count today is 12.7 hemoglobin 9.5. Platelets are 228, basic metabolic profile is normal renal profile is normal x-ray continues to show bilateral pleural effusions, patient had multiple thoracentesis procedures in the last couple of weeks Objective - Vital Signs Vital signs: Vital Signs Temp 98 F 09/03/23 12:00 Pulse 111 H 09/03/23 12:00 Resp 20 09/03/23 12:00 BP 135/63 08/29/23 06:15 Pulse Ox 93 L 09/03/23 12:00 FiO2 35 09/03/23 12:00 Intake & Output 09/02/23 09/03/23 09/03/23 17:59 06:59 18:59 Intake Total 816.309 Output Total 1180 Balance -363.691 Intake: IV 491 Mvi, Adult No.4 with Vit 65 K 10 ml Trace (Conc-1Ml/ Dose) 1 ml Sodium Acetate 60 meq In Amino Acid 5%- D20w+Lytes*E* 1,000 ml @ 65 mls/hr IV .BY DURATION KYLE Rx#:[id number] NS NS Pressure Pack 36 Potassium Chloride 20 meq In Water For Injection 1 100ml.bag @ 50 mls/hr IVPB Q2H KYLE Rx#: [id number] Sodium Acetate 40 meq 390 Potassium Chloride 30 meq In Amino Acid 5%-D20w+ Lytes*E* 1,000 ml @ 65 mls/hr IV .BY DURATION KYLE Rx#:[id number] Intake, IV Titration 325.309 Amount DOBUTamine DRIP 500 mg In 223.184 Dextrose/Water 1 250ml. bag @ 5 MCG/KG/MIN 11.31 mls/hr IV .Q22H7M KYLE Rx# :[id number] Furosemide 100 mg In Sodium Chloride 0.9% 90 ml @ 5 MG/HR 5 mls/hr IV .Q20H KYLE Rx#:[id number] Heparin Sod,Pork in 0.45% NaCl 25,000 unit In 0.45 % NaCl 1 250ml.bag @ 11.7 UNITS/KG/HR 10.015 mls/ hr IV .Q24H KYLE Rx#: [id number] Meropenem 1 gm In Sodium Chloride 0.9% 100 ml @ 33 .3 mls/hr IVPB Q8H KYLE Rx #:[id number] Norepinephrine 32 mg In Sodium Chloride 0.9% 218 ml @ 0.4 MCG/KG/MIN 14. 138 mls/hr IV .[id number] KYLE Rx#:[id number] Potassium Chloride 20 meq In Water For Injection 1 100ml.bag @ 50 mls/hr IVPB Q2H KYLE Rx#: [id number] Sodium Chloride 0.9% 1, 50 000 ml @ 10 mls/hr IV . Q24H KYLE Rx#:[id number] Vasopressin 20 unit In Sodium Chloride 0.9% 50 ml @ 0.04 UNITS/MIN 6.12 mls/hr IV .Q8H20M KYLE Rx# :[id number] propofoL 1,000 mg In 52.125 Empty Bag 1 bag @ 15 MCG/ KG/MIN 6.255 mls/hr IV . Q16H KYLE Rx#:[id number] Output: Gastric Drainage 175 Drainage 45 Anterior Medial Abdomen prevena 45 Urine 960 Other: Voiding Method Indwelling Catheter # Bowel Movements ABP, PAP, CO, CI - Last Documented Arterial Blood Pressure 93/61 - Exam GENERAL: Revealed 72-year-old cachectic, intubated and mechanically ventilated Head: Atraumatic, normocephalic, endotracheal tube and orogastric tubes are intact HEENT: No sclera icterus. Moist buccal mucosa. Head is atraumatic, normocephalic. No nasal drainage. NECK: Supple without lymphadenopathy. CHEST: Diminished breath sounds at the bases, no crackles rhonchi or wheezes CARDIOVASCULAR: Normal S1-S2, no S3 gallop, 2/6 systolic murmur throughout the precordium ABDOMEN: Distended. Abdomen is firm, nontender. Surgical wound site is clean. Wound VAC noted. No bowel sounds. No direct tenderness or rebound tenderness or guarding. MUSCULOSKELETAL: No clubbing, 2+ bipedal edema, no cyanosis. NEUROLOGIC: Could not assess patient is sedated and mechanically ventilated. PSYCH: Could not assess SKIN: No rashes - Labs CBC & Chem 7: 09/03/23 04:53 09/03/23 04:53 Labs: Abnormal Lab Results - Last 24 Hours (Table) 09/02/23 09/02/23 09/02/23 Range/Units 11:41 13:00 18:40 WBC (3.8-10.6) k/uL RBC (4.30-5.90) m/uL Hgb (13.0-17.5) gm/dL Hct (39.0-53.0) % RDW (11.5-15.5) % Neutrophils # (Manual) (1.3-7.7) k/uL Lymphocytes # (Manual) (1.0-4.8) k/uL Nucleated RBCs (0-0) /100 WBC PT 9.9 L (10.0-12.5) sec APTT 55.4 H (22.0-30.0) sec ABG pH (7.35-7.45) ABG pCO2 (35-45) mmHg ABG HCO3 (21-25) mmol/L ABG Total CO2 (19-24) mmol/L ABG O2 Saturation (94-97) % Carbon Dioxide (22-30) mmol/L BUN (9-20) mg/dL Glucose (74-99) mg/dL POC Glucose (mg/dL) 132 H (70-110) mg/dL Calcium (8.4-10.2) mg/dL Magnesium (1.6-2.3) mg/dL 09/02/23 09/03/23 09/03/23 Range/Units 23:10 04:53 04:53 WBC 12.7 H (3.8-10.6) k/uL RBC 3.29 L (4.30-5.90) m/uL Hgb 9.5 L (13.0-17.5) gm/dL Hct 29.4 L (39.0-53.0) % RDW 16.5 H (11.5-15.5) % Neutrophils # (Manual) 11.30 H (1.3-7.7) k/uL Lymphocytes # (Manual) 0.51 L (1.0-4.8) k/uL Nucleated RBCs 4 H (0-0) /100 WBC PT (10.0-12.5) sec APTT (22.0-30.0) sec ABG pH (7.35-7.45) ABG pCO2 (35-45) mmHg ABG HCO3 (21-25) mmol/L ABG Total CO2 (19-24) mmol/L ABG O2 Saturation (94-97) % Carbon Dioxide (22-30) mmol/L BUN (9-20) mg/dL Glucose (74-99) mg/dL POC Glucose (mg/dL) 118 H (70-110) mg/dL Calcium (8.4-10.2) mg/dL Magnesium 2.4 H (1.6-2.3) mg/dL 09/03/23 09/03/23 09/03/23 Range/Units 04:53 05:08 05:38 WBC (3.8-10.6) k/uL RBC (4.30-5.90) m/uL Hgb (13.0-17.5) gm/dL Hct (39.0-53.0) % RDW (11.5-15.5) % Neutrophils # (Manual) (1.3-7.7) k/uL Lymphocytes # (Manual) (1.0-4.8) k/uL Nucleated RBCs (0-0) /100 WBC PT (10.0-12.5) sec APTT (22.0-30.0) sec ABG pH 7.47 H (7.35-7.45) ABG pCO2 52 H (35-45) mmHg ABG HCO3 38 H (21-25) mmol/L ABG Total CO2 40 H (19-24) mmol/L ABG O2 Saturation 97.1 H (94-97) % Carbon Dioxide 35 H (22-30) mmol/L BUN 55 H (9-20) mg/dL Glucose 117 H (74-99) mg/dL POC Glucose (mg/dL) 112 H (70-110) mg/dL Calcium 7.6 L (8.4-10.2) mg/dL Magnesium (1.6-2.3) mg/dL Microbiology - Last 24 Hours (Table) 08/28/23 09:12 Blood Culture - Final Blood Assessment and Plan Assessment: Impression: Acute hypoxic respiratory failure secondary to abdominal sepsis and septic shock Complete small bowel obstruction requiring exploratory laparotomy lysis of adhesions colostomy and decompression postoperative day 7 Acute fecal peritonitis. Hypotension secondary to sepsis septic shock and cardiogenic also in nature Severe LV dysfunction with ejection fraction of 20% Mild to moderate aortic regurgitation and tricuspid regurgitation with pulmonary hypertension Acute systolic congestive heart failure Underlying coronary artery disease and previous CABG History of Hodgkin's lymphoma and previous splenectomy History of prostate cancer History of atrial fibrillation presently in sinus rhythm History of hypothyroidism Dyslipidemia Bilateral pleural effusions requiring thoracentesis, multiple times. T ransudative in nature. Cardiogenic in nature. 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 Recommendation: Continue ventilatory support Patient is not ready for weaning CODE STATUS was made DNR, hence tracheostomy and PEG tube placement are not even an option Recommending comfort care measures, family to decide on comfort care measures and possibly withdrawal of care. Continue hemodynamic support including norepinephrine and dobutamine Continue Lasix at 5 mg/h, patient is now showing negative balance Continue TPN.Nutritional support Continue GI and DVT prophylaxis Continue Merrem Continue to monitor in ICU Prognosis remains extremely poor and guarded again hoping family will make a decision regarding comfort care measures Critical care time is over 30 Will continue to follow Time with Patient: Greater than 30
--- NOTE | 2023-09-03 13:22 | P.PN ---
Subjective Progress Note Date: 09/03/23 Principal diagnosis: Bowel obstruction Patient remains in the ICU on the ventilator. Hemodynamically somewhat more stable with decreasing pressor requirements. He did have 2 bowel movements yesterday. Abdomen remains firm. Objective - Vital Signs Vital signs: Vital Signs Temp 98 F 09/03/23 12:00 Pulse 110 H 09/03/23 13:00 Resp 23 09/03/23 13:00 BP 135/63 08/29/23 06:15 Pulse Ox 93 L 09/03/23 13:00 FiO2 35 09/03/23 12:00 Intake & Output 09/02/23 09/03/23 09/03/23 17:59 06:59 18:59 Intake Total 932.309 Output Total 1330 Balance -397.691 Intake: IV 497 Mvi, Adult No.4 with Vit 65 K 10 ml Trace (Conc-1Ml/ Dose) 1 ml Sodium Acetate 60 meq In Amino Acid 5%- D20w+Lytes*E* 1,000 ml @ 65 mls/hr IV .BY DURATION KYLE Rx#:[id number] NS NS Pressure Pack 42 Potassium Chloride 20 meq In Water For Injection 1 100ml.bag @ 50 mls/hr IVPB Q2H KYLE Rx#: [id number] Sodium Acetate 40 meq 390 Potassium Chloride 30 meq In Amino Acid 5%-D20w+ Lytes*E* 1,000 ml @ 65 mls/hr IV .BY DURATION KYLE Rx#:[id number] Intake, IV Titration 435.309 Amount DOBUTamine DRIP 500 mg In 223.184 Dextrose/Water 1 250ml. bag @ 5 MCG/KG/MIN 11.31 mls/hr IV .Q22H7M [facility] Rx# :[id number] Furosemide 100 mg In Sodium Chloride 0.9% 90 ml @ 5 MG/HR 5 mls/hr IV .Q20H [facility]YLE Rx#:[id number] Heparin Sod,Pork in 0.45% NaCl 25,000 unit In 0.45 % NaCl 1 250ml.bag @ 11.7 UNITS/KG/HR 10.015 mls/ hr IV .Q24H KYLE Rx#: [id number] Meropenem 1 gm In Sodium 100 Chloride 0.9% 100 ml @ 33 .3 mls/hr IVPB Q8H [facility] Rx #:[id number] Norepinephrine 32 mg In Sodium Chloride 0.9% 218 ml @ 0.4 MCG/KG/MIN 14. 138 mls/hr IV .[id number] [facility] Rx#:[id number] Potassium Chloride 20 meq In Water For Injection 1 100ml.bag @ 50 mls/hr IVPB Q2H [facility] Rx#: [id number] Sodium Chloride 0.9% 1, 60 000 ml @ 10 mls/hr IV . Q24H [facility] Rx#:[id number] Vasopressin 20 unit In Sodium Chloride 0.9% 50 ml @ 0.04 UNITS/MIN 6.12 mls/hr IV .Q8H20M [facility] Rx# :[id number] propofoL 1,000 mg In 52.125 Empty Bag 1 bag @ 15 MCG/ KG/MIN 6.255 mls/hr IV . Q16H [facility] Rx#:[id number] Output: Gastric Drainage 175 Drainage 45 Anterior Medial Abdomen prevena 45 Urine 1110 Other: Voiding Method Indwelling Catheter # Bowel Movements ABP, PAP, CO, CI - Last Documented Arterial Blood Pressure 101/45 - Exam Abdomen: Firm, nontender, only mild distention - Labs CBC & Chem 7: 09/03/23 04:53 09/03/23 04:53 Labs: Abnormal Lab Results - Last 24 Hours (Table) 09/02/23 09/02/23 09/02/23 Range/Units 13:00 18:40 23:10 WBC (3.8-10.6) k/uL RBC (4.30-5.90) m/uL Hgb (13.0-17.5) gm/dL Hct (39.0-53.0) % RDW (11.5-15.5) % Neutrophils # (Manual) (1.3-7.7) k/uL Lymphocytes # (Manual) (1.0-4.8) k/uL Nucleated RBCs (0-0) /100 WBC PT 9.9 L (10.0-12.5) sec APTT 55.4 H (22.0-30.0) sec ABG pH (7.35-7.45) ABG pCO2 (35-45) mmHg ABG HCO3 (21-25) mmol/L ABG Total CO2 (19-24) mmol/L ABG O2 Saturation (94-97) % Carbon Dioxide (22-30) mmol/L BUN (9-20) mg/dL Glucose (74-99) mg/dL POC Glucose (mg/dL) 118 H (70-110) mg/dL Calcium (8.4-10.2) mg/dL Magnesium (1.6-2.3) mg/dL 09/03/23 09/03/23 09/03/23 Range/Units 04:53 04:53 04:53 WBC 12.7 H (3.8-10.6) k/uL RBC 3.29 L (4.30-5.90) m/uL Hgb 9.5 L (13.0-17.5) gm/dL Hct 29.4 L (39.0-53.0) % RDW 16.5 H (11.5-15.5) % Neutrophils # (Manual) 11.30 H (1.3-7.7) k/uL Lymphocytes # (Manual) 0.51 L (1.0-4.8) k/uL Nucleated RBCs 4 H (0-0) /100 WBC PT (10.0-12.5) sec APTT (22.0-30.0) sec ABG pH (7.35-7.45) ABG pCO2 (35-45) mmHg ABG HCO3 (21-25) mmol/L ABG Total CO2 (19-24) mmol/L ABG O2 Saturation (94-97) % Carbon Dioxide 35 H (22-30) mmol/L BUN 55 H (9-20) mg/dL Glucose 117 H (74-99) mg/dL POC Glucose (mg/dL) (70-110) mg/dL Calcium 7.6 L (8.4-10.2) mg/dL Magnesium 2.4 H (1.6-2.3) mg/dL 09/03/23 09/03/23 Range/Units 05:08 05:38 WBC (3.8-10.6) k/uL RBC (4.30-5.90) m/uL Hgb (13.0-17.5) gm/dL Hct (39.0-53.0) % RDW (11.5-15.5) % Neutrophils # (Manual) (1.3-7.7) k/uL Lymphocytes # (Manual) (1.0-4.8) k/uL Nucleated RBCs (0-0) /100 WBC PT (10.0-12.5) sec APTT (22.0-30.0) sec ABG pH 7.47 H (7.35-7.45) ABG pCO2 52 H (35-45) mmHg ABG HCO3 38 H (21-25) mmol/L ABG Total CO2 40 H (19-24) mmol/L ABG O2 Saturation 97.1 H (94-97) % Carbon Dioxide (22-30) mmol/L BUN (9-20) mg/dL Glucose (74-99) mg/dL POC Glucose (mg/dL) 112 H (70-110) mg/dL Calcium (8.4-10.2) mg/dL Magnesium (1.6-2.3) mg/dL Microbiology - Last 24 Hours (Table) 08/28/23 09:12 Blood Culture - Final Blood Assessment and Plan (1) SBO (small bowel obstruction) Narrative/Plan: 72-year-old male with bowel obstruction. Concurrent diagnosis of pancreatic cancer. Patient is now no code. Degree of medical support seems to be weaning per family. Await final decisions from them regarding comfort measures. Current Visit: Yes Status: Acute Code(s): K56.609 - UNSP INTESTNL OBST, UNSP TO PARTIAL VERSUS COMPLETE OBST SNOMED Code(s): 687045532
--- NOTE | 2023-09-03 14:21 | P.PN ---
Subjective Progress Note Date: 09/03/23 Principal diagnosis: Reason for follow-up is sepsis and fecal peritonitis Patient is a 72-year-old male with a past medical history significant for atrial fibrillation coronary artery disease hyperlipidemia HI prostate cancer admitted to the hospital for bowel obstruction treated medically subsequently taken to the OR and the patient was noticed to have feculent john tonitis in this patient who is status post laparotomy with lysis of adhesion decompressive colectomy with closure. On today's evaluation that is 09/03/2023,the patient remains to be afebrile, patient remains to be intubated on the vent FiO2 35% no significant purulent secretion through the day he did have bowel movement yesterday but none today is requiring low-dose Levophed to maintain his blood pressure. Patient white count is 12.7, creatinine 0.89 sputum with Klebsiella abdominal culture did not show a drug-resistant Klebsiella Objective - Vital Signs Vital signs: Vital Signs Temp 98 F 09/03/23 12:00 Pulse 110 H 09/03/23 14:00 Resp 21 09/03/23 14:00 BP 135/63 08/29/23 06:15 Pulse Ox 95 09/03/23 14:00 FiO2 35 09/03/23 12:00 Intake & Output 09/02/23 09/03/23 09/03/23 17:59 06:59 18:59 Intake Total 932.309 Output Total 1330 Balance -397.691 Intake: IV 497 Mvi, Adult No.4 with Vit 65 K 10 ml Trace (Conc-1Ml/ Dose) 1 ml Sodium Acetate 60 meq In Amino Acid 5%- D20w+Lytes*E* 1,000 ml @ 65 mls/hr IV .BY DURATION [facility] Rx#:[id number] NS NS Pressure Pack 42 Potassium Chloride 20 meq In Water For Injection 1 100ml.bag @ 50 mls/hr IVPB Q2H [facility] Rx#: [id number] Sodium Acetate 40 meq 390 Potassium Chloride 30 meq In Amino Acid 5%-D20w+ Lytes*E* 1,000 ml @ 65 mls/hr IV .BY DURATION KYLE Rx#:[id number] Intake, IV Titration 435.309 Amount DOBUTamine DRIP 500 mg In 223.184 Dextrose/Water 1 250ml. bag @ 5 MCG/KG/MIN 11.31 mls/hr IV .Q22H7M [facility] Rx# :[id number] Furosemide 100 mg In Sodium Chloride 0.9% 90 ml @ 5 MG/HR 5 mls/hr IV .Q20H [facility] Rx#:[id number] Heparin Sod,Pork in 0.45% NaCl 25,000 unit In 0.45 % NaCl 1 250ml.bag @ 11.7 UNITS/KG/HR 10.015 mls/ hr IV .Q24H [facility] Rx#: [id number] Meropenem 1 gm In Sodium 100 Chloride 0.9% 100 ml @ 33 .3 mls/hr IVPB Q8H [facility] Rx #:[id number] Norepinephrine 32 mg In Sodium Chloride 0.9% 218 ml @ 0.4 MCG/KG/MIN 14. 138 mls/hr IV .[id number] [facility] Rx#:[id number] Potassium Chloride 20 meq In Water For Injection 1 100ml.bag @ 50 mls/hr IVPB Q2H [facility] Rx#: [id number] Sodium Chloride 0.9% 1, 60 000 ml @ 10 mls/hr IV . Q24H [facility] Rx#:[id number] Vasopressin 20 unit In Sodium Chloride 0.9% 50 ml @ 0.04 UNITS/MIN 6.12 mls/hr IV .Q8H20M [facility] Rx# :[id number] propofoL 1,000 mg In 52.125 Empty Bag 1 bag @ 15 MCG/ KG/MIN 6.255 mls/hr IV . Q16H [facility] Rx#:[id number] Output: Gastric Drainage 175 Drainage 45 Anterior Medial Abdomen prevena 45 Urine 1110 Other: Voiding Method Indwelling Catheter # Bowel Movements ABP, PAP, CO, CI - Last Documented Arterial Blood Pressure 99/49 - Exam GENERAL DESCRIPTION: An elderly male intubated on the vent RESPIRATORY SYSTEM: Unlabored breathing , decreased breath sounds at bases HEART: S1 S2 regular rate and rhythm , ABDOMEN: Soft , no tenderness EXTREMITIES: No edema feet - Labs CBC & Chem 7: 09/03/23 04:53 09/03/23 13:30 Labs: Abnormal Lab Results - Last 24 Hours (Table) 09/02/23 09/02/23 09/02/23 Range/Units 13:00 18:40 23:10 WBC (3.8-10.6) k/uL RBC (4.30-5.90) m/uL Hgb (13.0-17.5) gm/dL Hct (39.0-53.0) % RDW (11.5-15.5) % Neutrophils # (Manual) (1.3-7.7) k/uL Lymphocytes # (Manual) (1.0-4.8) k/uL Nucleated RBCs (0-0) /100 WBC PT 9.9 L (10.0-12.5) sec APTT 55.4 H (22.0-30.0) sec ABG pH (7.35-7.45) ABG pCO2 (35-45) mmHg ABG HCO3 (21-25) mmol/L ABG Total CO2 (19-24) mmol/L ABG O2 Saturation (94-97) % Carbon Dioxide (22-30) mmol/L BUN (9-20) mg/dL Glucose (74-99) mg/dL POC Glucose (mg/dL) 118 H (70-110) mg/dL Calcium (8.4-10.2) mg/dL Magnesium (1.6-2.3) mg/dL 09/03/23 09/03/23 09/03/23 Range/Units 04:53 04:53 04:53 WBC 12.7 H (3.8-10.6) k/uL RBC 3.29 L (4.30-5.90) m/uL Hgb 9.5 L (13.0-17.5) gm/dL Hct 29.4 L (39.0-53.0) % RDW 16.5 H (11.5-15.5) % Neutrophils # (Manual) 11.30 H (1.3-7.7) k/uL Lymphocytes # (Manual) 0.51 L (1.0-4.8) k/uL Nucleated RBCs 4 H (0-0) /100 WBC PT (10.0-12.5) sec APTT (22.0-30.0) sec ABG pH (7.35-7.45) ABG pCO2 (35-45) mmHg ABG HCO3 (21-25) mmol/L ABG Total CO2 (19-24) mmol/L ABG O2 Saturation (94-97) % Carbon Dioxide 35 H (22-30) mmol/L BUN 55 H (9-20) mg/dL Glucose 117 H (74-99) mg/dL POC Glucose (mg/dL) (70-110) mg/dL Calcium 7.6 L (8.4-10.2) mg/dL Magnesium 2.4 H (1.6-2.3) mg/dL 09/03/23 09/03/23 Range/Units 05:08 05:38 WBC (3.8-10.6) k/uL RBC (4.30-5.90) m/uL Hgb (13.0-17.5) gm/dL Hct (39.0-53.0) % RDW (11.5-15.5) % Neutrophils # (Manual) (1.3-7.7) k/uL Lymphocytes # (Manual) (1.0-4.8) k/uL Nucleated RBCs (0-0) /100 WBC PT (10.0-12.5) sec APTT (22.0-30.0) sec ABG pH 7.47 H (7.35-7.45) ABG pCO2 52 H (35-45) mmHg ABG HCO3 38 H (21-25) mmol/L ABG Total CO2 40 H (19-24) mmol/L ABG O2 Saturation 97.1 H (94-97) % Carbon Dioxide (22-30) mmol/L BUN (9-20) mg/dL Glucose (74-99) mg/dL POC Glucose (mg/dL) 112 H (70-110) mg/dL Calcium (8.4-10.2) mg/dL Magnesium (1.6-2.3) mg/dL Microbiology - Last 24 Hours (Table) 08/28/23 09:12 Blood Culture - Final Blood Assessment and Plan (1) Fecal peritonitis Current Visit: Yes Status: Acute Code(s): K65.8 - OTHER PERITONITIS SNOMED Code(s): 335462178 (2) Leukocytosis Current Visit: No Status: Acute Code(s): D72.829 - ELEVATED WHITE BLOOD CELL COUNT, UNSPECIFIED SNOMED Code(s): 894618372 (3) Sepsis Current Visit: No Status: Acute Code(s): A41.9 - SEPSIS, UNSPECIFIED ORGANISM SNOMED Code(s): 50082699 Plan: 1patient with sepsis/septic shock in this patient who did have a tachycardia elevated white count source is fecal peritonitis in this patient who is status post extensive abdominal surgery for small bowel obstruction we will need to cover for enteric gram-negative both aerobes and anaerobes 2-abdominal cultures growing Klebsiella that is resistant to Unasyn as well as Zosyn though sensitive to meropenem and ertapenem as well as anaerobes 3-patient did have resolution of his fever patient white count is slightly up today and will monitor closely 4- patient to continue with meropenem and continue with supportive care Dictation was produced using [employer] dictation software. please excuse any grammatical, word or spelling errors. Time with Patient: Less than 30
[2023-09-03] MEDS: POTASSIUM CHLORIDE 10 MEQ in WATER FOR INJECTION 1 100ML.BAG IVPB SCH (14:30)
--- NOTE | 2023-09-03 14:30 | P.PN ---
Subjective Progress Note Date: 09/03/23 CHF The patient is a pleasant 72-year-old gentleman with a past medical history significant for coronary artery disease and cardiomyopathy and congestive heart failure who was admitted to the hospital with small bowel obstruction. He developed heart failure. The echo showed severe cardiomyopathy with EF around 20%. August 26, 2023 The patient was seen and evaluated this morning. He has severe left upper extremity edema. I am going to start the patient on Lasix IV at the small dose 20 mg twice daily and continue monitoring the kidney function and electrolytes and also obtain a venous duplex study to rule out DVT. Meanwhile continue the current medical regimen. He cannot take any oral medication at this point. The physical examination is remarkable for severe left upper extremity edema. August 27, 2023 The patient was seen in the intensive care unit. He underwent exploratory laparotomy and lysis of adhesion earlier this morning. Currently he is intubated on mechanical ventilation. Hemodynamically he is unstable and requiring small dose of norepinephrine. He is not receiving any oral medication. He is maintaining normal sinus mechanism. From the cardiovascular standpoint of view, we will continue the current medical regimen and consider adding dobutamine giving that he does have severe cardiomyopathy with an ejection fraction of 20%. The chest x-ray and blood work were reviewed. The examination is remarkable for the patient being intubated on mechanical ventilation with diminished breathing sounds bilaterally and no edema was noted. 08/28/2023 Patient is on norepinephrine, vasopressin and dobutamine drip. He continues to be on ventilator support failing weaning trial today. 08/29/2023 Patient is on norepinephrine, vasopressin and dobutamine. Patient continues to be on ventilator support and failed weaning trial. The abdomen has a wound VAC in place. 08/30/23 BP 106/49, heart rate 112 bpm, sinus tachycardia, Hemoglobin 10, WBC 34, BUN 36, creatinine 0.8 Patient is still on norepinephrine, vasopressin and dobutamine. Patient continues to be on ventilator support. He failed weaning trial today as well. Abdominal wound VAC is in place. Very poor clinical improvement 08/31/23 We have not been able to titrate the patient down from the 3 pressors norepine phrine vasopressin and dobutamine. BP 113/51, heart rate 103, WBC 28, hemoglobin eight 9.9. WBC has trended over last few days. Hemoglobin has gradually declined. Nutrition by TPN Creatinine 0.8 pH 7.3, respiratory acidosis 3 L urine output yesterday. Overall in positive fluid balance. 09/01/23 Patient is on 5 mcg dobutamine, norepinephrine 0.08 mcg and vasopressin 0.04 mcg. BP 110/50, sinus tachycardia WBC trended down to 18 from 28 yesterday. Hemoglobin is stable. Creatinine is stable. Nutrition by TPN. 3 L urine output yesterday tolerating IV diuretic well. Continues to be in positive fluid balance. 09/02/23 BP 107/51, heart rate 103 bpm Hemoglobin 9.3, WBC 11.1. WBCs trending down since patient has been on meropenem. Creatinine 0.6. I's and O's, 3.2 L of urinary output. Mildly positive fluid balance. Last night around 2 AM patient's norepinephrine and dobutamine was discontinued. This morning patient went into atrial fibrillation with rapid ventricular response. Heart rate in 110 bpm. BP 90/60. Patient is continue to be on vasopressin 0.04 09/03/2023 BP 100/50, heart rate 105 bpm, sinus tachycardia. No further atrial fibrillation since patient has been kept off vasopressin. Currently patient is on norepinephrine 0.11, dobutamine 5. Good urine output of around 120 cc/h currently on Lasix drip 5 mg/h Patient has been off of IV heparin drip because of mucoid black tarry stools which was positive for occult blood On exam Atrial fibrillation with RVR S1-S2 audible, regular pulse, no significant murmurs, On mechanical ventilator support, diminished breath sounds bilaterally, no edema Abdominal guarding present Assessment Coronary artery disease Small bowel obstruction Status post abdominal surgery as described above Severe cardiomyopathy Bilateral pleural effusion Status post pleurocentesis Left upper extremity edema Multiple comorbid conditions Plan Patient was on Lasix IV 40 mg twice daily. This was changed to Lasix 5 mg/h continuous drip by ICU team today. Consider transitioning it to IV pushes tomorrow IV Lasix 40 mg three times daily tomorrow Patient's dobutamine and norepinephrine was discontinued last night and was continued to be on vasopressin. This morning patient has gone into atrial fibrillation with RVR. If no further atrial fibrillation, no need of further anticoagulation at time time Ideally we would have continued dobutamine and norepinephrine and would have discontinue vasopressin first. If patient's heart rate goes up and blood pressure goes down, okay to cardiovert Considering patient's severe cardiomyopathy, diagnosis of pancreatic cancer, patient's overall prognosis is guarded. I had poor prognosis discussion with patient's family at bedside. They understand the poor prognosis and would like to continue hemodynamic support for next few days to see if patient can be weaned off pressors and ventilator. Objective - Vital Signs Vital signs: Vital Signs Temp 98 F 09/03/23 12:00 Pulse 110 H 09/03/23 14:00 Resp 21 09/03/23 14:00 BP 135/63 08/29/23 06:15 Pulse Ox 95 09/03/23 14:00 FiO2 35 09/03/23 12:00 Intake & Output 09/02/23 09/03/23 09/03/23 17:59 06:59 18:59 Intake Total 932.309 Output Total 1330 Balance -397.691 Intake: IV 497 Mvi, Adult No.4 with Vit 65 K 10 ml Trace (Conc-1Ml/ Dose) 1 ml Sodium Acetate 60 meq In Amino Acid 5%- D20w+Lytes*E* 1,000 ml @ 65 mls/hr IV .BY DURATION KYLE Rx#:[id number] NS NS Pressure Pack 42 Potassium Chloride 20 meq In Water For Injection 1 100ml.bag @ 50 mls/hr IVPB Q2H [facility]YLE Rx#: [id number] Sodium Acetate 40 meq 390 Potassium Chloride 30 meq In Amino Acid 5%-D20w+ Lytes*E* 1,000 ml @ 65 mls/hr IV .BY DURATION KYLE Rx#:[id number] Intake, IV Titration 435.309 Amount DOBUTamine DRIP 500 mg In 223.184 Dextrose/Water 1 250ml. bag @ 5 MCG/KG/MIN 11.31 mls/hr IV .Q22H7M [facility] Rx# :[id number] Furosemide 100 mg In Sodium Chloride 0.9% 90 ml @ 5 MG/HR 5 mls/hr IV .Q20H [facility] Rx#:[id number] Heparin Sod,Pork in 0.45% NaCl 25,000 unit In 0.45 % NaCl 1 250ml.bag @ 11.7 UNITS/KG/HR 10.015 mls/ hr IV .Q24H KYLE Rx#: [id number] Meropenem 1 gm In Sodium 100 Chloride 0.9% 100 ml @ 33 .3 mls/hr IVPB Q8H [facility] Rx #:[id number] Norepinephrine 32 mg In Sodium Chloride 0.9% 218 ml @ 0.4 MCG/KG/MIN 14. 138 mls/hr IV .[id number] K[facility] Rx#:[id number] Potassium Chloride 20 meq In Water For Injection 1 100ml.bag @ 50 mls/hr IVPB Q2H [facility]YLE Rx#: [id number] Sodium Chloride 0.9% 1, 60 000 ml @ 10 mls/hr IV . Q24H [facility] Rx#:[id number] Vasopressin 20 unit In Sodium Chloride 0.9% 50 ml @ 0.04 UNITS/MIN 6.12 mls/hr IV .Q8H20M [facility] Rx# :[id number] propofoL 1,000 mg In 52.125 Empty Bag 1 bag @ 15 MCG/ KG/MIN 6.255 mls/hr IV . Q16H K[facility] Rx#:[id number] Output: Gastric Drainage 175 Drainage 45 Anterior Medial Abdomen prevena 45 Urine 1110 Other: Voiding Method Indwelling Catheter # Bowel Movements ABP, PAP, CO, CI - Last Documented Arterial Blood Pressure 99/49 - Labs CBC & Chem 7: 09/03/23 04:53 09/03/23 13:30 Labs: Abnormal Lab Results - Last 24 Hours (Table) 09/02/23 09/02/23 09/02/23 Range/Units 13:00 18:40 23:10 WBC (3.8-10.6) k/uL RBC (4.30-5.90) m/uL Hgb (13.0-17.5) gm/dL Hct (39.0-53.0) % RDW (11.5-15.5) % Neutrophils # (Manual) (1.3-7.7) k/uL Lymphocytes # (Manual) (1.0-4.8) k/uL Nucleated RBCs (0-0) /100 WBC PT 9.9 L (10.0-12.5) sec APTT 55.4 H (22.0-30.0) sec ABG pH (7.35-7.45) ABG pCO2 (35-45) mmHg ABG HCO3 (21-25) mmol/L ABG Total CO2 (19-24) mmol/L ABG O2 Saturation (94-97) % Carbon Dioxide (22-30) mmol/L BUN (9-20) mg/dL Glucose (74-99) mg/dL POC Glucose (mg/dL) 118 H (70-110) mg/dL Calcium (8.4-10.2) mg/dL Magnesium (1.6-2.3) mg/dL 09/03/23 09/03/23 09/03/23 Range/Units 04:53 04:53 04:53 WBC 12.7 H (3.8-10.6) k/uL RBC 3.29 L (4.30-5.90) m/uL Hgb 9.5 L (13.0-17.5) gm/dL Hct 29.4 L (39.0-53.0) % RDW 16.5 H (11.5-15.5) % Neutrophils # (Manual) 11.30 H (1.3-7.7) k/uL Lymphocytes # (Manual) 0.51 L (1.0-4.8) k/uL Nucleated RBCs 4 H (0-0) /100 WBC PT (10.0-12.5) sec APTT (22.0-30.0) sec ABG pH (7.35-7.45) ABG pCO2 (35-45) mmHg ABG HCO3 (21-25) mmol/L ABG Total CO2 (19-24) mmol/L ABG O2 Saturation (94-97) % Carbon Dioxide 35 H (22-30) mmol/L BUN 55 H (9-20) mg/dL Glucose 117 H (74-99) mg/dL POC Glucose (mg/dL) (70-110) mg/dL Calcium 7.6 L (8.4-10.2) mg/dL Magnesium 2.4 H (1.6-2.3) mg/dL 09/03/23 09/03/23 Range/Units 05:08 05:38 WBC (3.8-10.6) k/uL RBC (4.30-5.90) m/uL Hgb (13.0-17.5) gm/dL Hct (39.0-53.0) % RDW (11.5-15.5) % Neutrophils # (Manual) (1.3-7.7) k/uL Lymphocytes # (Manual) (1.0-4.8) k/uL Nucleated RBCs (0-0) /100 WBC PT (10.0-12.5) sec APTT (22.0-30.0) sec ABG pH 7.47 H (7.35-7.45) ABG pCO2 52 H (35-45) mmHg ABG HCO3 38 H (21-25) mmol/L ABG Total CO2 40 H (19-24) mmol/L ABG O2 Saturation 97.1 H (94-97) % Carbon Dioxide (22-30) mmol/L BUN (9-20) mg/dL Glucose (74-99) mg/dL POC Glucose (mg/dL) 112 H (70-110) mg/dL Calcium (8.4-10.2) mg/dL Magnesium (1.6-2.3) mg/dL Microbiology - Last 24 Hours (Table) 08/28/23 09:12 Blood Culture - Final Blood
[2023-09-03 19:04] LABS: Glucose,Whole Blood 113 mg/dL (70-110)
[2023-09-04 01:14] LABS: Glucose,Whole Blood 120 mg/dL (70-110)
[2023-09-04 04:51] LABS: ABG Base Excess 16.9 mmol/L; ABG PCO2 47 mmHg (35-45); ABG PH 7.53 (7.35-7.45); ABG PO2 74 mmHg (83-108); ABG TCO2 41 mmol/L (19-24)
[2023-09-04 05:04] LABS: Anisocytosis Slight; HCT 30.1 % (39.0-53.0); HGB 9.5 gm/dL (13.0-17.5); Hypochromasia Slight; MCH 28.3 pg (25.0-35.0); MCHC 31.7 g/dL (31.0-37.0); MCV 89.2 fL (80.0-100.0); Mean Platelet Volume 11.9; Platelet Count 249 k/uL (150-450); RBC 3.37 m/uL (4.30-5.90); RDW 16.6 % (11.5-15.5); WBC 17.4 k/uL (3.8-10.6)
[2023-09-04 05:17] LABS: ALT 29 U/L (4-49); AST 85 U/L (17-59); African American GFR (CKD) >90 (>60 ml/min/1.73 sqM); Albumin 1.8 g/dL (3.5-5.0); Alkaline Phosphatase 159 U/L (38-126); Anion Gap 3 mmol/L; Blood Urea Nitrogen 59 mg/dL (9-20); Calcium 7.6 mg/dL (8.4-10.2); Carbon Dioxide 37 mmol/L (22-30); Chloride 103 mmol/L (98-107); Glucose 121 mg/dL (74-99); Non-African American GFR(CKD) >90 (>60 ml/min/1.73 sqM); Phosphorus 3.7 mg/dL (2.5-4.5); Potassium 3.8 mmol/L (3.5-5.1); Sodium 143 mmol/L (137-145); Total Bilirubin 1.3 mg/dL (0.2-1.3); Total Protein 4.5 g/dL (6.3-8.2)
[2023-09-04 05:25] LABS: ABG HCO3 40 mmol/L (21-25); Allen Test Performed? no
[2023-09-04] MEDS ORDERED: POTASSIUM CHLORIDE 10 MEQ in WATER FOR INJECTION 1 100ML.BAG IVPB SCH (05:45)
[2023-09-04] MEDS: POTASSIUM CHLORIDE 10 MEQ in WATER FOR INJECTION 1 100ML.BAG IVPB SCH (06:18)
[2023-09-04 06:24] LABS: Glucose,Whole Blood 121 mg/dL (70-110)
--- NOTE | 2023-09-04 08:03 | P.PN ---
Subjective Progress Note Date: 09/04/23 PROGRESS NOTE The patient is a 72-year-old male with known history of CABG, severe cardiomyopathy who underwent exploratory laparotomy and lysis of adhesions. He remains intubated and sedated. He is in sinus mechanism with sinus tachycardia. Continues to be on norepinephrine and dobutamine in addition to IV Lasix drip. Not anticoagulated because of recent bleeding. On his echocardiogram he had moderate mitral with mild to moderate aortic and moderate severe tricuspid regurgitation. The family is considering comfort care. Patient is DNR at this time. Patient has evidence of pleural effusion and has underwent thoracentesis. Medications: IV dobutamine, IV Lasix, Lovenox subcu, IV norepinephrine PHYSICAL EXAMINATION: Blood pressure 114/50 heart rate 109, intubated and sedated LUNGS: Clear to auscultation, anteriorly HEART: Regular rate and rhythm, S1, S2. No S3. Systolic ejection murmur ABDOMEN: Soft, dressing in place, no organomegaly EXTREMETIES: +1 edema LAB: Hemoglobin 9.5, WBC 17.4, pO2 74. BUN 59, creatinine 0.74, potassium 3.8 IMPRESSION: 1. Status post abdominal surgery with lysis of adhesion for bowel obstruction 2. Respiratory failure 3. Severe cardiomyopathy 4. Status post CABG 5. Paroxysmal atrial fibrillation, continues to be in sinus mechanism 6. Hypotension and sepsis 7. Moderate mitral with severe tricuspid regurgitation 8. Metastatic hepatobiliary or pancreatic carcinoma PLAN: 1. Continue supportive care 2. Discussion with family regarding comfort care 3. Prognosis is poor Objective - Vital Signs Vital signs: Vital Signs Temp 98.8 F 09/04/23 04:00 Pulse 109 H 09/04/23 07:00 Resp 18 09/04/23 07:00 BP 135/63 08/29/23 06:15 Pulse Ox 96 09/04/23 07:00 FiO2 35 09/04/23 04:00 Intake & Output 09/03/23 09/04/23 09/04/23 18:59 06:59 18:59 Intake Total 5955.641 9058.290 Output Total 2395 1935 Balance -693.790 -776.710 Weight 83.7 kg Intake: IV 852 864 Mvi, Adult No.4 with Vit 390 195 K 10 ml Trace (Conc-1Ml/ Dose) 1 ml Sodium Acetate 60 meq In Amino Acid 5%- D20w+Lytes*E* 1,000 ml @ 65 mls/hr IV .BY DURATION [facility] Rx#:[id number] Mvi, Adult No.4 with Vit 325 K 10 ml Trace (Conc-1Ml/ Dose) 1 ml Sodium Chloride 4Meq/ml Vial 20 meq In Amino Acid 5%-D20w +Lytes*E* 1,000 ml @ 90 mls/hr IV .BY DURATION [facility] Rx#:[id number] NS Pressure Pack 72 84 Sodium Acetate 40 meq 390 260 Potassium Chloride 30 meq In Amino Acid 5%-D20w+ Lytes*E* 1,000 ml @ 65 mls/hr IV .BY DURATION [facility] Rx#:[id number] Intake, IV Titration 849.210 294.290 Amount DOBUTamine DRIP 500 mg In 223.184 Dextrose/Water 1 250ml. bag @ 5 MCG/KG/MIN 11.31 mls/hr IV .Q22H7M [facility] Rx# :[id number] Furosemide 100 mg In 78.833 Sodium Chloride 0.9% 90 ml @ 5 MG/HR 5 mls/hr IV .Q20H [facility] Rx#:[id number] Meropenem 1 gm In Sodium 100 Chloride 0.9% 100 ml @ 33 .3 mls/hr IVPB Q8H [facility] Rx #:[id number] Potassium Chloride 10 meq 200 In Water For Injection 1 100ml.bag @ 100 mls/hr IVPB Q1H [facility] Rx#: [id number] Sodium Chloride 0.9% 1, 110 10 000 ml @ 10 mls/hr IV . Q24H [facility] Rx#:[id number] Sodium Phosphate 15 mmol 130 Sodium Acetate 10 meq Potassium Chloride 40 meq Calcium Gluconate 1 gm In Amino Acids 5 %/ Dextrose 20 % 1,000 ml @ 75 mls/hr IV .[id number] [facility] Rx#:[id number] propofoL 1,000 mg In 137.193 154.290 Empty Bag 1 bag @ 15 MCG/ KG/MIN 6.255 mls/hr IV . Q16H [facility] Rx#:[id number] Output: Gastric Drainage 375 170 Drainage 45 prevena 45 Urine 1975 1765 Other: Voiding Method Indwelling Catheter Indwelling Catheter ABP, PAP, CO, CI - Last Documented Arterial Blood Pressure 114/54 - Labs CBC & Chem 7: 09/04/23 04:56 09/04/23 04:56 Labs: Abnormal Lab Results - Last 24 Hours (Table) 09/03/23 09/04/23 09/04/23 Range/Units 19:03 01:12 04:50 WBC (3.8-10.6) k/uL RBC (4.30-5.90) m/uL Hgb (13.0-17.5) gm/dL Hct (39.0-53.0) % RDW (11.5-15.5) % ABG pH 7.53 H (7.35-7.45) ABG pCO2 47 H (35-45) mmHg ABG pO2 74 L (83-108) mmHg ABG HCO3 40 H* (21-25) mmol/L ABG Total CO2 41 H (19-24) mmol/L Carbon Dioxide (22-30) mmol/L BUN (9-20) mg/dL Glucose (74-99) mg/dL POC Glucose (mg/dL) 113 H 120 H (70-110) mg/dL Calcium (8.4-10.2) mg/dL AST (17-59) U/L Alkaline Phosphatase (38-126) U/L Total Protein (6.3-8.2) g/dL Albumin (3.5-5.0) g/dL 09/04/23 09/04/23 09/04/23 Range/Units 04:56 04:56 06:23 WBC 17.4 H (3.8-10.6) k/uL RBC 3.37 L (4.30-5.90) m/uL Hgb 9.5 L (13.0-17.5) gm/dL Hct 30.1 L (39.0-53.0) % RDW 16.6 H (11.5-15.5) % ABG pH (7.35-7.45) ABG pCO2 (35-45) mmHg ABG pO2 (83-108) mmHg ABG HCO3 (21-25) mmol/L ABG Total CO2 (19-24) mmol/L Carbon Dioxide 37 H (22-30) mmol/L BUN 59 H (9-20) mg/dL Glucose 121 H (74-99) mg/dL POC Glucose (mg/dL) 121 H (70-110) mg/dL Calcium 7.6 L (8.4-10.2) mg/dL AST 85 H (17-59) U/L Alkaline Phosphatase 159 H (38-126) U/L Total Protein 4.5 L (6.3-8.2) g/dL Albumin 1.8 L (3.5-5.0) g/dL
[2023-09-04] MEDS: ENOXAPARIN 40 MG/0.4 ML SYRINGE SQ SCH (08:52)
--- NOTE | 2023-09-04 08:54 | XR ---
EXAMINATION TYPE: XR chest 1V portable DATE OF EXAM: 09/04/2023 5:44 AM CLINICAL INDICATION:Male, 72 years old with history of mechanical ventilation; COMPARISON: Chest radiographs from 09/03/2023. TECHNIQUE: XR chest 1V portable Frontal view of the chest. FINDINGS: Lungs/Pleura: No evidence of focal consolidation or pneumothorax. Blunting of the costophrenic angles is present. Pulmonary vascularity: Unremarkable. Heart/mediastinum: Cardiomediastinal silhouette is enlarged and stable. Single-lead cardiac conductio n device overlying the left hemithorax with lead projecting over the right ventricle. Musculoskeletal: No acute osseous pathology. Midline sternotomy wires are noted. Other findings: None Lines/Tubes: Endotracheal tube with distal tip 5.6 cm above the holly. Nasogastric tube with side-port projecting over the distal esophagus. Right-sided PICC line with distal tip at the cavoatrial junction. Right internal jugular central venous catheter with distal tip at the cavoatrial junction. IMPRESSION: 1. Nasogastric tube distal side-port projects over the expected location of the distal esophagus con language instructor advancement of 5 cm for optimal placement. 2. Appropriate placement of right PICC and right central venous catheter. 3. No immediate bilateral layering pleural effusions.
--- NOTE | 2023-09-04 10:06 | P.PN ---
Subjective Progress Note Date: 09/04/23 Patient is a 72-year-old male with a history of Hodgkin's lymphoma status post chemo radiation and splenectomy in the 1970s, atrial fibrillation, dyslipidemia, coronary artery disease with myocardial infarction and coronary artery bypass surgery, and prostate cancer who presented to the emergency department with complaints of nausea and vomiting. Patient was hospitalized here from 08/01/23 through 08/17/23 for ileus and possible pneumonia. He was treated conservatively. On arrival to the ER he was tachycardic with a pulse of 107. Laboratory in the ER consisted of CBC, coags, and CMP and was remarkable for sodium 135, lactic acid 2.3, and AST of 60. Abdominal x-ray was consistent with ileus. NG tube was placed. Arrangements were made for admission. He underwent CT abdomen pelvis which shows high density contrast into the rectum suggesting no complete obstruction, but could still be a partial obstruction along with anasarca of the soft tissues. He was seen by surgery and subsequently underwent small bowel follow-through which showed contrast in the cecum due to residual suspicious for partial versus complete obstruction. Surgical team determined that he would require surgical intervention. They recommended PICC line for TPN. Cardiology was consulted and determined that the patient was in intermediate risk with no absolute contraindication for surgery. Echocardiogram was obtained which showed an ejection fraction of 25 to 30% with mild pulmonary hypertension and prior inferior wall myocardial infarction with hypokinesis, moderate to severe tricuspid regurgitation, and large pleural effusion. Pulmonary was also consulted for presurgical clearance due to the patient's large pleural effusion. Patient subsequently underwent left-sided thoracentesis on with removal of 1200 cc of fluid, on 08/24 the patient underwent right- sided thoracentesis with removal of 1100 cc of turbulent fluid. On 08/26 patient underwent exploratory laparotomy with lysis of adhesions, decompressive colectomy with closure, and peritoneal lavage. Postoperatively the patient remained intubated and was subsequently transferred to the ICU. He had issues with postoperative hypotension and atrial fibrillation. He required vasopressor support with norepinephrine. Patient was subsequently diagnosed with septic shock which was felt to be due to fecal peritonitis and infectious disease was consulted. Patient was started on Zosyn 3.375 g. Patient's hemodynamics continued to worsen requiring multiple pressors and he is subsequently started on vasopressin and epinephrine along with dobutamine. On 08/29 patient's surgical pathology became available which was consistent with metastatic adenocarcinoma involving subserosal tissue likely from the upper gastrointestinal or pancreatic biliary tract. Patient was able to be weaned off of Levophed by 09/01, he then had an episode of A fib with RVR and was started on heparin and cardio transitioned him off vaso and back on to norepinephrine. Patient seen and examined at bedside. He was transition from vasopressin to norepinephrine yesterday for an episode of A-fib with RVR which converted after 3 hours; also on dobutamine gtt, lasix gtt. No other acute events per nursing. 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 -Cardiology Await further cardio recs Chronic: Coronary artery disease status post coronary artery bypass grafting Hypothyroidism Dyslipidemia Resolved: Metabolic acidosis Prognosis guarded Imaging: Chest x-ray reviewed and personally interpreted, ETT ends 5cm from holly, b/l pleural effusions present, central line is in good position, OGT in good position, single lead ICD ends in high right atrium Data Review: DVT prophylaxis: Lovenox Poor over all prognosis This dictation was prepared using [employer] voice recognition software. Though every attempt is made to correct errors during dictation some may still exist. Objective - Vital Signs Vital signs: Vital Signs Temp 97.6 F 09/04/23 08:00 Pulse 110 H 09/04/23 09:30 Resp 19 09/04/23 09:30 BP 135/63 08/29/23 06:15 Pulse Ox 97 09/04/23 09:30 FiO2 35 09/04/23 08:18 Intake & Output 09/03/23 09/04/23 09/04/23 18:59 06:59 18:59 Intake Total 4378.475 3478.290 111.638 Output Total 2395 1935 Balance -693.790 -776.710 111.638 Weight 83.7 kg Intake: IV 852 864 Mvi, Adult No.4 with Vit 390 195 K 10 ml Trace (Conc-1Ml/ Dose) 1 ml Sodium Acetate 60 meq In Amino Acid 5%- D20w+Lytes*E* 1,000 ml @ 65 mls/hr IV .BY DURATION [facility] Rx#:[id number] Mvi, Adult No.4 with Vit 325 K 10 ml Trace (Conc-1Ml/ Dose) 1 ml Sodium Chloride 4Meq/ml Vial 20 meq In Amino Acid 5%-D20w +Lytes*E* 1,000 ml @ 90 mls/hr IV .BY DURATION [facility] Rx#:[id number] NS Pressure Pack 72 84 Sodium Acetate 40 meq 390 260 Potassium Chloride 30 meq In Amino Acid 5%-D20w+ Lytes*E* 1,000 ml @ 65 mls/hr IV .BY DURATION [facility] Rx#:[id number] Intake, IV Titration 849.210 294.290 111.638 Amount DOBUTamine DRIP 500 mg In 223.184 Dextrose/Water 1 250ml. bag @ 5 MCG/KG/MIN 11.31 mls/hr IV .Q22H7M [facility] Rx# :[id number] Furosemide 100 mg In 78.833 Sodium Chloride 0.9% 90 ml @ 5 MG/HR 5 mls/hr IV .Q20H [facility] Rx#:[id number] Meropenem 1 gm In Sodium 100 Chloride 0.9% 100 ml @ 33 .3 mls/hr IVPB Q8H [facility] Rx #:[id number] Norepinephrine 32 mg In 111.638 Sodium Chloride 0.9% 218 ml @ 0.4 MCG/KG/MIN 14. 138 mls/hr IV .[id number] [facility] Rx#:[id number] Potassium Chloride 10 meq 200 In Water For Injection 1 100ml.bag @ 100 mls/hr IVPB Q1H [facility] Rx#: [id number] Sodium Chloride 0.9% 1, 110 10 000 ml @ 10 mls/hr IV . Q24H [facility] Rx#:[id number] Sodium Phosphate 15 mmol 130 Sodium Acetate 10 meq Potassium Chloride 40 meq Calcium Gluconate 1 gm In Amino Acids 5 %/ Dextrose 20 % 1,000 ml @ 75 mls/hr IV .[id number] [facility] Rx#:[id number] propofoL 1,000 mg In 137.193 154.290 Empty Bag 1 bag @ 15 MCG/ KG/MIN 6.255 mls/hr IV . Q16H [facility] Rx#:[id number] Output: Gastric Drainage 375 170 Drainage 45 prevena 45 Urine 1975 1765 Other: Voiding Method Indwelling Catheter Indwelling Catheter ABP, PAP, CO, CI - Last Documented Arterial Blood Pressure 95/56 - Labs CBC & Chem 7: 09/04/23 04:56 09/04/23 04:56 Labs: Abnormal Lab Results - Last 24 Hours (Table) 09/03/23 09/04/23 09/04/23 Range/Units 19:03 01:12 04:50 WBC (3.8-10.6) k/uL RBC (4.30-5.90) m/uL Hgb (13.0-17.5) gm/dL Hct (39.0-53.0) % RDW (11.5-15.5) % ABG pH 7.53 H (7.35-7.45) ABG pCO2 47 H (35-45) mmHg ABG pO2 74 L (83-108) mmHg ABG HCO3 40 H* (21-25) mmol/L ABG Total CO2 41 H (19-24) mmol/L Carbon Dioxide (22-30) mmol/L BUN (9-20) mg/dL Glucose (74-99) mg/dL POC Glucose (mg/dL) 113 H 120 H (70-110) mg/dL Calcium (8.4-10.2) mg/dL AST (17-59) U/L Alkaline Phosphatase (38-126) U/L Total Protein (6.3-8.2) g/dL Albumin (3.5-5.0) g/dL 09/04/23 09/04/23 09/04/23 Range/Units 04:56 04:56 06:23 WBC 17.4 H (3.8-10.6) k/uL RBC 3.37 L (4.30-5.90) m/uL Hgb 9.5 L (13.0-17.5) gm/dL Hct 30.1 L (39.0-53.0) % RDW 16.6 H (11.5-15.5) % ABG pH (7.35-7.45) ABG pCO2 (35-45) mmHg ABG pO2 (83-108) mmHg ABG HCO3 (21-25) mmol/L ABG Total CO2 (19-24) mmol/L Carbon Dioxide 37 H (22-30) mmol/L BUN 59 H (9-20) mg/dL Glucose 121 H (74-99) mg/dL POC Glucose (mg/dL) 121 H (70-110) mg/dL Calcium 7.6 L (8.4-10.2) mg/dL AST 85 H (17-59) U/L Alkaline Phosphatase 159 H (38-126) U/L Total Protein 4.5 L (6.3-8.2) g/dL Albumin 1.8 L (3.5-5.0) g/dL
--- NOTE | 2023-09-04 11:45 | P.PN ---
Subjective Progress Note Date: 09/04/23 Principal diagnosis: Respiratory failure. Patient was reevaluated today on 08/31/2023, remains in the ICU, remains intubated and mechanically ventilated. Patient is on assist-control rate of 16 tidal volume 400 FiO2 45% PEEP of 5 ABG showed a pO2 of 111 pCO2 54 pH of 7.32, hence his rate was increased up to 18 and his FiO2 was cut down to 40%. Patient remains on multiple drips including vasopressin at 0.04, norepinephrine at 0.35 mcg/kg/min, dobutamine at 5 mg/kg/min propofol at 30 mcg/kg/min he is also on TPN at 65 cc/h IV fluid 50 cc/h of 0.9 normal saline. Remains on Lasix at 40 mg IV push twice daily. Chest x-ray continues to show evidence of pulmonary edema with bilateral pleural effusions, however the patient is responding to Lasix and he continues to have significant and good urine output. The pathology on his bowel tissue came back showing evidence of metastatic disease to the GI tract, most likely the primary source is either pancreatic or hepatobiliary. Family was notified about the diagnosis by Dr. Andino on the case WBC count today is 28.7 hemoglobin is 9.9. Platelets are 264. Basic metabolic profile is normal renal profile is normal bicarb is 25, chest x-ray continues to show evidence of ongoing congestive heart failure and moderate bilateral pleural effusions Patient was evaluated today on 09/01/2023, remains in the ICU, intubated and mechanically ventilated. Patient remains on assist-control rate of 18 tidal volume 400 FiO2 40% and PEEP of 5 ABG showed a pO2 of 85 pCO2 49 pH of 7.42. Hence no ventilator changes were made today. Chest x-ray continues to show evidence of pulmonary edema with bilateral pleural effusions patient remains on propofol at 20 mcg/kg/min dobutamine 5 mcg/kg/min norepinephrine at 0.11 mcg/kg/min vasopressin at 0.04 units/min patient is on TPN at 65 cc/h 0.9 normal saline at 50 cc/h remains on Lasix at 40 mg IV push twice daily and on Merrem not much of a slip box changer the last 24 hours, patient is basically about the same, on low-dose of sedation, patient opens his eyes but does not follow any instructions WBC count is 17.1 hemoglobin is 9.4. Basic metabolic profile is normal, BUN is 46 creatinine is 0.74 Patient was reevaluated today on 09/02/2023, remains in the ICU, intubated and mechanically ventilated. Patient is on assist-control rate of 18 tidal volume 400 FiO2 40% and PEEP of 5 ABG showed a pO2 of 102 pCO2 50 pH of 7.45 patient remains on multiple drips including dobutamine at 5 mcg/kg/min, propofol propofol at 30 mcg/kg/min, vasopressin at 0.04 units/min, TPN at 65 mL/h patient remains on Merrem and today I changed IV Lasix to Lasix infusion at 5 mg/h since the patient remains swollen and edematous and continues to have large bilateral pleural effusion. Meantime the plan is to hold on sedation today, and daily assessment of mental status, although I believe the patient has extremely very poor prognosis. Chest x-ray continues to show bilateral pleural effusions and evidence of pulmonary edema Patient evaluated today on 09/03/2023, patient remains in the ICU, intubated and mechanically ventilated. Last night the patient was weaned off vasopressin, and while he went off sedation to assess mental status, patient developed an episode of atrial fibrillation with RVR. And hypotension. He is now on norepinephrine again at 0.11 mcg/kg/min. Patient is off vasopressin, remains on dobutamine at 5 mg/kg/min propofol at 40 mcg/kg/min and is also on Lasix drip at 5 mg/h. Vent graf the patient is on assist-control rate of 18 tidal volume 400 FiO2 40% and PEEP of 5 ABG showed a pO2 of 106 pCO2 52 pH of 7.47 hence FiO2 was cut down to 35%. Patient is now about the same, the biggest concern about this patient is the fact that we are not getting to a point where I could fully assess his mental status and decide on further weaning although I doubt the patient will wean successfully. His CODE STATUS has been changed to DNR CODE STATUS, and a tracheostomy as well as PEG tube are not an option. Hoping family will make a decision about comfort care on this patient, and I think that would be the most reasonable approach. Dimensions the patient had positive pathology from his bowel resection showing metastatic pancreatic or hepatobiliary adenocarcinoma. WBC count today is 12.7 hemoglobin 9.5. Platelets are 228, basic metabolic profile is normal renal profile is normal x-ray continues to show bilateral pleural effusions, patient had multiple thoracentesis procedures in the last couple of weeks Progress note dated September 04, 2023. This is a 72-year-old male who was admitted to the hospital on August 20. He came in for a small bowel obstruction, and had exploratory laparotomy with lysis of adhesions, decompression, on August 26. The patient has been in the intensive care unit since that time. He remains on mechanical ventilator. The patient is a no code patient. He is on volume assist-control, rate 18, tidal volume 400, FiO2 35%, PEEP of 5. Blood gases show pO2 of 74, pCO2 47, pH is 7.53. The patient is on dobutamine at 5 mcg/kg/min, norepinephrine at 6.5 mcg/min, Lasix drip at 5 mg an hour, saline at 10 cc an hour, propofol at 30 mcg/kg/min, and TPN at 65 cc an hour. Current labs include a white count of 17.4, hemoglobin 9.5, hematocrit 30.1, platelet count 249,000. Glucose is 121. AST is 85. Albumin 1.8. From August 26, the Gram stain of the wound, was positive for Klebsiella. Also, the sputum from the same day with positive for Klebsiella. Chest x-ray shows a properly placed endotracheal tube, and NG tube. Objective - Vital Signs Vital signs: Vital Signs Temp 97.6 F 09/04/23 08:00 Pulse 112 H 09/04/23 10:15 Resp 20 09/04/23 10:15 BP 135/63 08/29/23 06:15 Pulse Ox 96 09/04/23 10:15 FiO2 35 09/04/23 08:18 Intake & Output 09/03/23 09/04/23 09/04/23 18:59 06:59 18:59 Intake Total 7235.638 0810.290 531.593 Output Total 2395 1935 510 Balance -693.790 -776.710 21.593 Weight 83.7 kg 83.7 kg Intake: IV 852 864 328 Furosemide 100 mg In 15 Sodium Chloride 0.9% 90 ml @ 5 MG/HR 5 mls/hr IV .Q20H [facility] Rx#:[id number] Mvi, Adult No.4 with Vit 390 195 K 10 ml Trace (Conc-1Ml/ Dose) 1 ml Sodium Acetate 60 meq In Amino Acid 5%- D20w+Lytes*E* 1,000 ml @ 65 mls/hr IV .BY DURATION [facility] Rx#:[id number] Mvi, Adult No.4 with Vit 325 K 10 ml Trace (Conc-1Ml/ Dose) 1 ml Sodium Chloride 4Meq/ml Vial 20 meq In Amino Acid 5%-D20w +Lytes*E* 1,000 ml @ 90 mls/hr IV .BY DURATION [facility] Rx#:[id number] NS Pressure Pack 72 84 18 Potassium Chloride 10 meq 100 In Water For Injection 1 100ml.bag @ 100 mls/hr IVPB Q1H [facility] Rx#: [id number] Sodium Acetate 40 meq 390 260 195 Potassium Chloride 30 meq In Amino Acid 5%-D20w+ Lytes*E* 1,000 ml @ 65 mls/hr IV .BY DURATION [facility] Rx#:[id number] Intake, IV Titration 849.210 294.290 203.593 Amount DOBUTamine DRIP 500 mg In 223.184 Dextrose/Water 1 250ml. bag @ 5 MCG/KG/MIN 11.31 mls/hr IV .Q22H7M [facility] Rx# :[id number] Furosemide 100 mg In 78.833 88.75 Sodium Chloride 0.9% 90 ml @ 5 MG/HR 5 mls/hr IV .Q20H [facility] Rx#:[id number] Meropenem 1 gm In Sodium 100 Chloride 0.9% 100 ml @ 33 .3 mls/hr IVPB Q8H [facility] Rx #:[id number] Norepinephrine 32 mg In 114.843 Sodium Chloride 0.9% 218 ml @ 0.4 MCG/KG/MIN 14. 138 mls/hr IV .[id number] [facility] Rx#:[id number] Potassium Chloride 10 meq 200 In Water For Injection 1 100ml.bag @ 100 mls/hr IVPB Q1H [facility] Rx#: [id number] Sodium Chloride 0.9% 1, 110 10 000 ml @ 10 mls/hr IV . Q24H [facility] Rx#:[id number] Sodium Phosphate 15 mmol 130 Sodium Acetate 10 meq Potassium Chloride 40 meq Calcium Gluconate 1 gm In Amino Acids 5 %/ Dextrose 20 % 1,000 ml @ 75 mls/hr IV .[id number] [facility] Rx#:[id number] propofoL 1,000 mg In 137.193 154.290 Empty Bag 1 bag @ 15 MCG/ KG/MIN 6.255 mls/hr IV . Q16H [facility] Rx#:[id number] Oral 0 Output: Gastric Drainage 375 170 Drainage 45 prevena 45 Urine 1974 1765 510 Other: Voiding Method Indwelling Catheter Indwelling Catheter Indwelling Catheter ABP, PAP, CO, CI - Last Documented Arterial Blood Pressure 103/54 - Exam No acute distress, sedated on propofol, with an orally placed endotracheal tube, and NG tube. HEENT examination is grossly unremarkable. Neck supple. Full range of motion. No adenopathy thyromegaly or neck vein distention. Cardiovascular examination reveals regular rhythm rate. S1-S2 normal. No S3 or S4. No discernible murmur noted. Heart sounds are distant. Heart rate 100 bpm. Lungs reveal scattered bilateral rhonchi. Saturations are in the mid 90s. No wheezes. No crackles. Breath sounds equal bilaterally. Abdomen soft with bowel sounds. No masses or tenderness. Extremities are intact. No cyanosis clubbing or edema. Skin is without rash or lesion. Neurologic examination cannot be adequately assessed. - Labs CBC & Chem 7: 09/04/23 04:56 09/04/23 04:56 Labs: Abnormal Lab Results - Last 24 Hours (Table) 09/03/23 09/04/23 09/04/23 Range/Units 19:03 01:12 04:50 WBC (3.8-10.6) k/uL RBC (4.30-5.90) m/uL Hgb (13.0-17.5) gm/dL Hct (39.0-53.0) % RDW (11.5-15.5) % ABG pH 7.53 H (7.35-7.45) ABG pCO2 47 H (35-45) mmHg ABG pO2 74 L (83-108) mmHg ABG HCO3 40 H* (21-25) mmol/L ABG Total CO2 41 H (19-24) mmol/L Carbon Dioxide (22-30) mmol/L BUN (9-20) mg/dL Glucose (74-99) mg/dL POC Glucose (mg/dL) 113 H 120 H (70-110) mg/dL Calcium (8.4-10.2) mg/dL AST (17-59) U/L Alkaline Phosphatase (38-126) U/L Total Protein (6.3-8.2) g/dL Albumin (3.5-5.0) g/dL 09/04/23 09/04/23 09/04/23 Range/Units 04:56 04:56 06:23 WBC 17.4 H (3.8-10.6) k/uL RBC 3.37 L (4.30-5.90) m/uL Hgb 9.5 L (13.0-17.5) gm/dL Hct 30.1 L (39.0-53.0) % RDW 16.6 H (11.5-15.5) % ABG pH (7.35-7.45) ABG pCO2 (35-45) mmHg ABG pO2 (83-108) mmHg ABG HCO3 (21-25) mmol/L ABG Total CO2 (19-24) mmol/L Carbon Dioxide 37 H (22-30) mmol/L BUN 59 H (9-20) mg/dL Glucose 121 H (74-99) mg/dL POC Glucose (mg/dL) 121 H (70-110) mg/dL Calcium 7.6 L (8.4-10.2) mg/dL AST 85 H (17-59) U/L Alkaline Phosphatase 159 H (38-126) U/L Total Protein 4.5 L (6.3-8.2) g/dL Albumin 1.8 L (3.5-5.0) g/dL Assessment and Plan Assessment: Acute hypoxemic respiratory failure, secondary to abdominal sepsis, and septic shock,. Small bowel obstruction, status post exploratory laparotomy with lysis of adhesions, and decompression, on August 27, 2023, postop day #8. S/P intubation and mechanical ventilation, beginning August 27, 2023. Acute fecal peritonitis. Hypotension, secondary to sepsis and septic shock. Severe LV dysfunction with an ejection fraction of 20%. Mild to moderate aortic regurgitation and tricuspid regurgitation, with pulmonary hypertension. Acute systolic CHF. CAD, with previous coronary artery bypass grafting. History of Hodgkin's lymphoma with previous splenectomy. History of prostate cancer. History of atrial fibrillation. History of hypothyroidism. Dyslipidemia. Bilateral pleural effusions, status post thoracentesis. History of metastatic pancreatic carcinoma. Plan: Plan dated September 04, 2023. The patient is seen today in room 257. The patient remains on mechanical ventilator, subsequent to his intubation, on August 26, following exploratory laparotomy, lysis of adhesions, and bowel decompression. The patient remains on dobutamine, norepinephrine, Lasix, saline, and propofol. In addition, the patient is getting TPN. The patient is a no code patient. Will talk further with the family about comfort care. The patient's overall prognosis remains maria eugenia y poor. The patient continues on meropenem. We will continue to follow make recommendations along the way. The patient also continues on GI DVT prophylaxis. Time with Patient: Greater than 30
[2023-09-04 11:46] VITALS: BMI 26.4
[2023-09-04 11:50] LABS: Glucose,Whole Blood 106 mg/dL (70-110)
--- NOTE | 2023-09-04 14:29 | P.PN ---
Subjective Progress Note Date: 09/04/23 CHIEF COMPLAINT: SBO HISTORY OF PRESENT ILLNESS: Patient admitted to the hospital with small bowel obstruction. Currently ICU intubated and on mechanical ventilation. He is postop day #8 status post exploratory laparotomy with lysis of adhesions, decompressive colotomy with closure, transverse colon, peritoneal lavage. 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 They continue to work on decreasing the Levophed. Patient did have atrial fibrillation on Monday and was placed on IV heparin. There was a small bloody bowel movement heparin was discontinued. Low-grade temp of 100 last night. Mildly tachycardic. WBC is up from 12-17 Hgb 9.5 platelets 249 CA 19-9 elevated at 35.8 PHYSICAL EXAM: VITAL SIGNS: Reviewed GENERAL: no acute distress. HEENT: No sclera icterus. Extraocular movements grossly intact. Moist buccal mucosa. Head is atraumatic, normocephalic. Hears conversational speech. No nasal drainage. NECK: Supple without lymphadenopathy. CHEST: Non-labored respirations and equal bilateral excursions. CARDIOVASCULAR: Palpable 2+ radial pulses. ABDOMEN: Abdomen less firm. Distended. Prevana wound vac intact. Small amount of bloody drainage noted in canister MUSCULOSKELETAL: No clubbing or cyanosis. NEUROLOGIC: No focal or lateralizing signs. Cranial nerves II through XII grossly intact. PSYCH: Intubated and sedated ASSESSMENT: 1. Small bowel obstruction due to adhesions 2. Paroxysmal atrial fibrillation 3. History of Hodgkin's lymphoma status post splenectomy including chemoradiation 4. History of prostate cancer status postradiation 5. Bilateral pleural effusion 6. Unintentional weight loss 7. Ischemic cardiomyopathy 8. Moderate to severe protein malnutrition 9. 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 History of ischemic colitis 12. Fecal peritonitis 13. Expected ileus due to cardiogenic shock and septic shock 14. 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 Signing provider agrees with the documented findings, assessment, and plan of care. Objective - Vital Signs Vital signs: Vital Signs Temp 97.5 F L 09/04/23 12:00 Pulse 112 H 09/04/23 12:30 Resp 20 09/04/23 12:30 BP 135/63 08/29/23 06:15 Pulse Ox 97 09/04/23 12:30 FiO2 35 09/04/23 12:00 Intake & Output 09/03/23 09/04/23 09/04/23 18:59 06:59 18:59 Intake Total 1537.872 1873.290 799.225 Output Total 2395 1935 730 Balance -693.790 -776.710 69.225 Weight 83.7 kg 83.7 kg Intake: IV 852 864 490 Furosemide 100 mg In 15 Sodium Chloride 0.9% 90 ml @ 5 MG/HR 5 mls/hr IV .Q20H [facility] Rx#:[id number] Mvi, Adult No.4 with Vit 390 195 K 10 ml Trace (Conc-1Ml/ Dose) 1 ml Sodium Acetate 60 meq In Amino Acid 5%- D20w+Lytes*E* 1,000 ml @ 65 mls/hr IV .BY DURATION [facility] Rx#:[id number] Mvi, Adult No.4 with Vit 325 K 10 ml Trace (Conc-1Ml/ Dose) 1 ml Sodium Chloride 4Meq/ml Vial 20 meq In Amino Acid 5%-D20w +Lytes*E* 1,000 ml @ 90 mls/hr IV .BY DURATION [facility] Rx#:[id number] NS Pressure Pack 72 84 30 Potassium Chloride 10 meq 100 In Water For Injection 1 100ml.bag @ 100 mls/hr IVPB Q1H [facility] Rx#: [id number] Sodium Acetate 40 meq 390 260 325 Potassium Chloride 30 meq In Amino Acid 5%-D20w+ Lytes*E* 1,000 ml @ 65 mls/hr IV .BY DURATION [facility] Rx#:[id number] Sodium Chloride 0.9% 1, 20 000 ml @ 10 mls/hr IV . Q24H [facility] Rx#:[id number] Intake, IV Titration 849.210 294.290 309.225 Amount DOBUTamine DRIP 500 mg In 223.184 Dextrose/Water 1 250ml. bag @ 5 MCG/KG/MIN 11.31 mls/hr IV .Q22H7M [facility] Rx# :[id number] Furosemide 100 mg In 78.833 88.75 Sodium Chloride 0.9% 90 ml @ 5 MG/HR 5 mls/hr IV .Q20H [facility] Rx#:[id number] Meropenem 1 gm In Sodium 100 Chloride 0.9% 100 ml @ 33 .3 mls/hr IVPB Q8H [facility] Rx #:[id number] Norepinephrine 32 mg In 120.475 Sodium Chloride 0.9% 218 ml @ 0.4 MCG/KG/MIN 14. 138 mls/hr IV .[id number] [facility] Rx#:[id number] Potassium Chloride 10 meq 200 In Water For Injection 1 100ml.bag @ 100 mls/hr IVPB Q1H [facility] Rx#: [id number] Sodium Chloride 0.9% 1, 110 10 000 ml @ 10 mls/hr IV . Q24H [facility] Rx#:[id number] Sodium Phosphate 15 mmol 130 Sodium Acetate 10 meq Potassium Chloride 40 meq Calcium Gluconate 1 gm In Amino Acids 5 %/ Dextrose 20 % 1,000 ml @ 75 mls/hr IV .[id number] [facility] Rx#:[id number] propofoL 1,000 mg In 137.193 154.290 100 Empty Bag 1 bag @ 15 MCG/ KG/MIN 6.255 mls/hr IV . Q16H [facility] Rx#:[id number] Oral 0 Output: Gastric Drainage 375 170 Drainage 45 prevena 45 Urine 1975 1765 730 Other: Voiding Method Indwelling Catheter Indwelling Catheter Indwelling Catheter ABP, PAP, CO, CI - Last Documented Arterial Blood Pressure 111/47 - Labs CBC & Chem 7: 09/04/23 04:56 09/04/23 04:56 Labs: Abnormal Lab Results - Last 24 Hours (Table) 09/03/23 09/04/23 09/04/23 Range/Units 19:03 01:12 04:50 WBC (3.8-10.6) k/uL RBC (4.30-5.90) m/uL Hgb (13.0-17.5) gm/dL Hct (39.0-53.0) % RDW (11.5-15.5) % ABG pH 7.53 H (7.35-7.45) ABG pCO2 47 H (35-45) mmHg ABG pO2 74 L (83-108) mmHg ABG HCO3 40 H* (21-25) mmol/L ABG Total CO2 41 H (19-24) mmol/L Carbon Dioxide (22-30) mmol/L BUN (9-20) mg/dL Glucose (74-99) mg/dL POC Glucose (mg/dL) 113 H 120 H (70-110) mg/dL Calcium (8.4-10.2) mg/dL AST (17-59) U/L Alkaline Phosphatase (38-126) U/L Total Protein (6.3-8.2) g/dL Albumin (3.5-5.0) g/dL 09/04/23 09/04/23 09/04/23 Range/Units 04:56 04:56 06:23 WBC 17.4 H (3.8-10.6) k/uL RBC 3.37 L (4.30-5.90) m/uL Hgb 9.5 L (13.0-17.5) gm/dL Hct 30.1 L (39.0-53.0) % RDW 16.6 H (11.5-15.5) % ABG pH (7.35-7.45) ABG pCO2 (35-45) mmHg ABG pO2 (83-108) mmHg ABG HCO3 (21-25) mmol/L ABG Total CO2 (19-24) mmol/L Carbon Dioxide 37 H (22-30) mmol/L BUN 59 H (9-20) mg/dL Glucose 121 H (74-99) mg/dL POC Glucose (mg/dL) 121 H (70-110) mg/dL Calcium 7.6 L (8.4-10.2) mg/dL AST 85 H (17-59) U/L Alkaline Phosphatase 159 H (38-126) U/L Total Protein 4.5 L (6.3-8.2) g/dL Albumin 1.8 L (3.5-5.0) g/dL
[2023-09-04 17:46] LABS: Glucose,Whole Blood 110 mg/dL (70-110)
[2023-09-04] MEDS: [UNRECOGNIZED DRUG - REMARK] IV SCH (18:47)
--- NOTE | 2023-09-04 23:17 | P.PN ---
Subjective Progress Note Date: 09/04/23 Principal diagnosis: Reason for follow-up is sepsis and fecal peritonitis Patient is a 72-year-old male with a past medical history significant for atrial fibrillation coronary artery disease hyperlipidemia [place] prostate cancer admitted to the hospital for bowel obstruction treated medically subsequently taken to the OR and the patient was noticed to have feculent john tonitis in this patient who is status post laparotomy with lysis of adhesion decompressive colectomy with closure. On today's evaluation that is 09/04/2023,the patient remains to be afebrile, patient is on ventilator currently on 35% FiO2 patient is requiring less pressor support per the nursing staff and no purulent secretions severity or any other changes reported. Patient white count slightly up today to 17.4 blood culture has been negative Objective - Vital Signs Vital signs: Vital Signs Temp 97.5 F L 09/04/23 12:00 Pulse 112 H 09/04/23 12:30 Resp 20 09/04/23 12:30 BP 135/63 08/29/23 06:15 Pulse Ox 97 09/04/23 12:30 FiO2 35 09/04/23 12:00 Intake & Output 09/03/23 09/04/23 09/04/23 18:59 06:59 18:59 Intake Total 3879.285 1085.290 693.593 Output Total 2395 1935 730 Balance -693.790 -776.710 -36.407 Weight 83.7 kg 83.7 kg Intake: IV 852 864 490 Furosemide 100 mg In 15 Sodium Chloride 0.9% 90 ml @ 5 MG/HR 5 mls/hr IV .Q20H [facility] Rx#:[id number] Mvi, Adult No.4 with Vit 390 195 K 10 ml Trace (Conc-1Ml/ Dose) 1 ml Sodium Acetate 60 meq In Amino Acid 5%- D20w+Lytes*E* 1,000 ml @ 65 mls/hr IV .BY DURATION [facility] Rx#:[id number] Mvi, Adult No.4 with Vit 325 K 10 ml Trace (Conc-1Ml/ Dose) 1 ml Sodium Chloride 4Meq/ml Vial 20 meq In Amino Acid 5%-D20w +Lytes*E* 1,000 ml @ 90 mls/hr IV .BY DURATION [facility] Rx#:[id number] NS Pressure Pack 72 84 30 Potassium Chloride 10 meq 100 In Water For Injection 1 100ml.bag @ 100 mls/hr IVPB Q1H [facility] Rx#: [id number] Sodium Acetate 40 meq 390 260 325 Potassium Chloride 30 meq In Amino Acid 5%-D20w+ Lytes*E* 1,000 ml @ 65 mls/hr IV .BY DURATION [facility] Rx#:[id number] Sodium Chloride 0.9% 1, 20 000 ml @ 10 mls/hr IV . Q24H [facility] Rx#:[id number] Intake, IV Titration 849.210 294.290 203.593 Amount DOBUTamine DRIP 500 mg In 223.184 Dextrose/Water 1 250ml. bag @ 5 MCG/KG/MIN 11.31 mls/hr IV .Q22H7M [facility] Rx# :[id number] Furosemide 100 mg In 78.833 88.75 Sodium Chloride 0.9% 90 ml @ 5 MG/HR 5 mls/hr IV .Q20H [facility] Rx#:[id number] Meropenem 1 gm In Sodium 100 Chloride 0.9% 100 ml @ 33 .3 mls/hr IVPB Q8H [facility] Rx #:[id number] Norepinephrine 32 mg In 114.843 Sodium Chloride 0.9% 218 ml @ 0.4 MCG/KG/MIN 14. 138 mls/hr IV .[id number] [facility] Rx#:[id number] Potassium Chloride 10 meq 200 In Water For Injection 1 100ml.bag @ 100 mls/hr IVPB Q1H [facility] Rx#: [id number] Sodium Chloride 0.9% 1, 110 10 000 ml @ 10 mls/hr IV . Q24H [facility] Rx#:[id number] Sodium Phosphate 15 mmol 130 Sodium Acetate 10 meq Potassium Chloride 40 meq Calcium Gluconate 1 gm In Amino Acids 5 %/ Dextrose 20 % 1,000 ml @ 75 mls/hr IV .[id number] [facility] Rx#:[id number] propofoL 1,000 mg In 137.193 154.290 Empty Bag 1 bag @ 15 MCG/ KG/MIN 6.255 mls/hr IV . Q16H [facility] Rx#:[id number] Oral 0 Output: Gastric Drainage 375 170 Drainage 45 prevena 45 Urine 1975 1765 730 Other: Voiding Method Indwelling Catheter Indwelling Catheter Indwelling Catheter ABP, PAP, CO, CI - Last Documented Arterial Blood Pressure 111/47 - Exam GENERAL DESCRIPTION: An elderly male intubated on the vent RESPIRATORY SYSTEM: Unlabored breathing , decreased breath sounds at bases HEART: S1 S2 regular rate and rhythm , ABDOMEN: Soft , no tenderness EXTREMITIES: No edema feet - Labs CBC & Chem 7: 09/04/23 04:56 09/04/23 04:56 Labs: Abnormal Lab Results - Last 24 Hours (Table) 09/03/23 09/04/23 09/04/23 Range/Units 19:03 01:12 04:50 WBC (3.8-10.6) k/uL RBC (4.30-5.90) m/uL Hgb (13.0-17.5) gm/dL Hct (39.0-53.0) % RDW (11.5-15.5) % ABG pH 7.53 H (7.35-7.45) ABG pCO2 47 H (35-45) mmHg ABG pO2 74 L (83-108) mmHg ABG HCO3 40 H* (21-25) mmol/L ABG Total CO2 41 H (19-24) mmol/L Carbon Dioxide (22-30) mmol/L BUN (9-20) mg/dL Glucose (74-99) mg/dL POC Glucose (mg/dL) 113 H 120 H (70-110) mg/dL Calcium (8.4-10.2) mg/dL AST (17-59) U/L Alkaline Phosphatase (38-126) U/L Total Protein (6.3-8.2) g/dL Albumin (3.5-5.0) g/dL 09/04/23 09/04/23 09/04/23 Range/Units 04:56 04:56 06:23 WBC 17.4 H (3.8-10.6) k/uL RBC 3.37 L (4.30-5.90) m/uL Hgb 9.5 L (13.0-17.5) gm/dL Hct 30.1 L (39.0-53.0) % RDW 16.6 H (11.5-15.5) % ABG pH (7.35-7.45) ABG pCO2 (35-45) mmHg ABG pO2 (83-108) mmHg ABG HCO3 (21-25) mmol/L ABG Total CO2 (19-24) mmol/L Carbon Dioxide 37 H (22-30) mmol/L BUN 59 H (9-20) mg/dL Glucose 121 H (74-99) mg/dL POC Glucose (mg/dL) 121 H (70-110) mg/dL Calcium 7.6 L (8.4-10.2) mg/dL AST 85 H (17-59) U/L Alkaline Phosphatase 159 H (38-126) U/L Total Protein 4.5 L (6.3-8.2) g/dL Albumin 1.8 L (3.5-5.0) g/dL Assessment and Plan (1) Fecal peritonitis Current Visit: Yes Status: Acute Code(s): K65.8 - OTHER PERITONITIS SNOMED Code(s): 647379914 (2) Leukocytosis Current Visit: No Status: Acute Code(s): D72.829 - ELEVATED WHITE BLOOD CELL COUNT, UNSPECIFIED SNOMED Code(s): 643871563 (3) Sepsis Current Visit: No Status: Acute Code(s): A41.9 - SEPSIS, UNSPECIFIED ORGANISM SNOMED Code(s): 80974904 Plan: 1patient with sepsis/septic shock in this patient who did have a tachycardia elevated white count source is fecal peritonitis in this patient who is status post extensive abdominal surgery for small bowel obstruction we will need to cover for enteric gram-negative both aerobes and anaerobes 2-abdominal cultures growing Klebsiella that is resistant to Unasyn as well as Zosyn though sensitive to meropenem and ertapenem as well as anaerobes 3-patient did have resolution of his fever patient however noticed to have sl ight worsening of the white count that we will monitor closely and will recheck inflammatory markers with a.m. lab 4- patient to continue with meropenem Dictation was produced using [employer] dictation software. please excuse any grammatical, word or spelling errors. Time with Patient: Less than 30
[2023-09-05 00:58] LABS: Glucose,Whole Blood 119 mg/dL (70-110)
[2023-09-05 03:59] LABS: Anisocytosis Slight; Basophils # (A) 0.2 k/uL (0-0.2); Basophils % (A) 1 %; Eosinophils # (A) 0.2 k/uL (0-0.7); Eosinophils % (A) 1 %; HCT 29.3 % (39.0-53.0); HGB 9.2 gm/dL (13.0-17.5); Hypochromasia Slight; Lymphocytes # (A) 1.1 k/uL (1.0-4.8); Lymphocytes % (A) 5 %; MCH 28.1 pg (25.0-35.0); MCHC 31.4 g/dL (31.0-37.0); MCV 89.2 fL (80.0-100.0); Mean Platelet Volume 12.4; Monocytes # (A) 0.6 k/uL (0-1.0); Monocytes % (A) 3 %; Neutrophils # (A) 17.9 k/uL (1.3-7.7); Neutrophils % (A) 89 %; Platelet Count 233 k/uL (150-450); RBC 3.28 m/uL (4.30-5.90); RDW 16.7 % (11.5-15.5); WBC 20.1 k/uL (3.8-10.6)
[2023-09-05 04:07] LABS: ABG Base Excess 17.4 mmol/L; ABG Oxygen Saturation 96.5 % (94-97); ABG PCO2 48 mmHg (35-45); ABG PH 7.53 (7.35-7.45); ABG PO2 84 mmHg (83-108); ABG TCO2 42 mmol/L (19-24); Allen Test Performed? Yes
[2023-09-05 04:11] LABS: ALT 30 U/L (4-49); AST 77 U/L (17-59); African American GFR (CKD) >90 (>60 ml/min/1.73 sqM); Albumin 1.7 g/dL (3.5-5.0); Alkaline Phosphatase 171 U/L (38-126); Anion Gap 2 mmol/L; Blood Urea Nitrogen 63 mg/dL (9-20); Calcium 7.6 mg/dL (8.4-10.2); Carbon Dioxide 39 mmol/L (22-30); Chloride 103 mmol/L (98-107); Glucose 120 mg/dL (74-99); Magnesium 2.3 mg/dL (1.6-2.3); Non-African American GFR(CKD) >90 (>60 ml/min/1.73 sqM); Phosphorus 3.8 mg/dL (2.5-4.5); Potassium 3.2 mmol/L (3.5-5.1); Sodium 144 mmol/L (137-145); Total Bilirubin 1.3 mg/dL (0.2-1.3); Total Protein 4.4 g/dL (6.3-8.2)
[2023-09-05 04:38] LABS: ABG HCO3 40 mmol/L (21-25)
[2023-09-05] MEDS: POTASSIUM CHLORIDE 20 MEQ in WATER FOR INJECTION 1 100ML.BAG IVPB SCH (05:30)
[2023-09-05 06:17] LABS: Glucose,Whole Blood 134 mg/dL (70-110)
--- NOTE | 2023-09-05 08:03 | P.PN ---
Subjective Progress Note Date: 09/05/23 PROGRESS NOTE The patient is a 72-year-old male with known history of CABG, severe cardiomyopathy who underwent exploratory laparotomy and lysis of adhesions. He remains intubated and sedated. He is in sinus mechanism with sinus tachycardia. Continues to be on norepinephrine and dobutamine in addition to IV Lasix drip. Not anticoagulated because of recent bleeding. On his echocardiogram he had moderate mitral with mild to moderate aortic and moderate severe tricuspid regurgitation. The family is considering comfort care. Patient is DNR at this time. Patient has evidence of pleural effusion and has underwent thoracentesis. September 04: The patient remains intubated and sedated. He is no code at this time and being evaluated for possible comfort care. Hemodynamically there is no significant changes. He continues to be in sinus mechanism. His urine output is stable. Continues to be on IV dobutamine and IV Lasix Medications: IV dobutamine, IV Lasix, Lovenox subcu, IV norepinephrine PHYSICAL EXAMINATION: Blood pressure 114/50 heart rate 109, intubated and sedated LUNGS: Clear to auscultation, anteriorly HEART: Regular rate and rhythm, S1, S2. No S3. Holosystolic murmur ABDOMEN: Soft, dressing in place, no organomegaly EXTREMETIES: +1 edema LAB: Hemoglobin 9.5, WBC 17.4, pO2 74. BUN 59, creatinine 0.74, potassium 3.8 IMPRESSION: 1. Status post abdominal surgery with lysis of adhesion for bowel obstruction 2. Respiratory failure 3. Severe cardiomyopathy 4. Status post CABG 5. Paroxysmal atrial fibrillation, continues to be in sinus mechanism 6. Hypotension and sepsis 7. Moderate mitral with severe tricuspid regurgitation 8. Metastatic hepatobiliary or pancreatic carcinoma PLAN: 1. Continue supportive care 2. Discussion with family regarding comfort care 3. Prognosis is poor Objective - Vital Signs Vital signs: Vital Signs Temp 96.9 F L 09/05/23 04:00 Pulse 106 H 09/05/23 07:00 Resp 23 09/05/23 07:00 BP 135/63 08/29/23 06:15 Pulse Ox 97 09/05/23 07:00 FiO2 35 09/05/23 04:00 Intake & Output 09/04/23 09/05/23 09/05/23 18:59 06:59 18:59 Intake Total 8742.004 9293.303 76 Output Total 1730 1800 175 Balance -94.775 -419.697 -99 Weight 83.7 kg 81.9 kg Intake: IV 586 1057 76 DOBUTamine DRIP 500 mg In 50 5 Dextrose/Water 1 250ml. bag @ 5 MCG/KG/MIN 11.31 mls/hr IV .Q22H7M [facility] Rx# :[id number] Furosemide 100 mg In 15 Sodium Chloride 0.9% 90 ml @ 5 MG/HR 5 mls/hr IV .Q20H [facility] Rx#:[id number] KVO 75 Meropenem 1 gm In Sodium 100 Chloride 0.9% 100 ml @ 33 .3 mls/hr IVPB Q8H [facility] Rx #:[id number] Mvi, Adult No.4 with Vit 650 65 K 10 ml Trace (Conc-1Ml/ Dose) 1 ml Sodium Acetate 26 meq Sodium Phosphate 9 mmol Potassium Chloride 50 meq Calcium Gluconate 1 gm In Amino Acids 5 %/ Dextrose 20 % 1,000 ml @ 65 mls/hr IV .BY DURATION [facility] Rx#:[id number] NS Pressure Pack 66 72 6 Potassium Chloride 10 meq 100 In Water For Injection 1 100ml.bag @ 100 mls/hr IVPB Q1H [facility] Rx#: [id number] Potassium Chloride 20 meq 100 In Water For Injection 1 100ml.bag @ 50 mls/hr IVPB Q2H [facility] Rx#: [id number] Sodium Acetate 40 meq 325 Potassium Chloride 30 meq In Amino Acid 5%-D20w+ Lytes*E* 1,000 ml @ 65 mls/hr IV .BY DURATION [facility] Rx#:[id number] Sodium Chloride 0.9% 1, 80 10 000 ml @ 10 mls/hr IV . Q24H [facility] Rx#:[id number] Intake, IV Titration 1049.225 323.303 Amount DOBUTamine DRIP 500 mg In 250 Dextrose/Water 1 250ml. bag @ 5 MCG/KG/MIN 11.31 mls/hr IV .Q22H7M [facility] Rx# :[id number] Furosemide 100 mg In 88.75 92 Sodium Chloride 0.9% 90 ml @ 5 MG/HR 5 mls/hr IV .Q20H [facility] Rx#:[id number] Meropenem 1 gm In Sodium 100 Chloride 0.9% 100 ml @ 33 .3 mls/hr IVPB Q8H [facility] Rx #:[id number] Mvi, Adult No.4 with Vit 390 65 K 10 ml Trace (Conc-1Ml/ Dose) 1 ml Sodium Acetate 26 meq Sodium Phosphate 9 mmol Potassium Chloride 50 meq Calcium Gluconate 1 gm In Amino Acids 5 %/ Dextrose 20 % 1,000 ml @ 65 mls/hr IV .BY DURATION [facility] Rx#:[id number] Norepinephrine 32 mg In 120.475 Sodium Chloride 0.9% 218 ml @ 0.4 MCG/KG/MIN 14. 138 mls/hr IV .[id number] [facility] Rx#:[id number] propofoL 1,000 mg In 100 166.303 Empty Bag 1 bag @ 15 MCG/ KG/MIN 6.255 mls/hr IV . Q16H [facility] Rx#:[id number] Oral 0 0 Output: Gastric Drainage 350 200 Urine 1380 1600 175 Other: Voiding Method Indwelling Catheter Indwelling Catheter # Bowel Movements 1 ABP, PAP, CO, CI - Last Documented Arterial Blood Pressure 98/48 - Labs CBC & Chem 7: 09/05/23 03:45 09/05/23 03:45 Labs: Abnormal Lab Results - Last 24 Hours (Table) 09/05/23 09/05/23 09/05/23 Range/Units 00:55 03:45 03:45 WBC 20.1 H (3.8-10.6) k/uL RBC 3.28 L (4.30-5.90) m/uL Hgb 9.2 L (13.0-17.5) gm/dL Hct 29.3 L (39.0-53.0) % RDW 16.7 H (11.5-15.5) % Neutrophils # 17.9 H (1.3-7.7) k/uL ABG pH (7.35-7.45) ABG pCO2 (35-45) mmHg ABG HCO3 (21-25) mmol/L ABG Total CO2 (19-24) mmol/L Potassium 3.2 L (3.5-5.1) mmol/L Carbon Dioxide 39 H (22-30) mmol/L BUN 63 H (9-20) mg/dL Glucose 120 H (74-99) mg/dL POC Glucose (mg/dL) 119 H (70-110) mg/dL Calcium 7.6 L (8.4-10.2) mg/dL AST 77 H (17-59) U/L Alkaline Phosphatase 171 H (38-126) U/L Total Protein 4.4 L (6.3-8.2) g/dL Albumin 1.7 L (3.5-5.0) g/dL 09/05/23 09/05/23 Range/Units 04:05 06:14 WBC (3.8-10.6) k/uL RBC (4.30-5.90) m/uL Hgb (13.0-17.5) gm/dL Hct (39.0-53.0) % RDW (11.5-15.5) % Neutrophils # (1.3-7.7) k/uL ABG pH 7.53 H (7.35-7.45) ABG pCO2 48 H (35-45) mmHg ABG HCO3 40 H* (21-25) mmol/L ABG Total CO2 42 H (19-24) mmol/L Potassium (3.5-5.1) mmol/L Carbon Dioxide (22-30) mmol/L BUN (9-20) mg/dL Glucose (74-99) mg/dL POC Glucose (mg/dL) 134 H (70-110) mg/dL Calcium (8.4-10.2) mg/dL AST (17-59) U/L Alkaline Phosphatase (38-126) U/L Total Protein (6.3-8.2) g/dL Albumin (3.5-5.0) g/dL
--- NOTE | 2023-09-05 08:26 | XR ---
EXAMINATION TYPE: XR chest 1V portable DATE OF EXAM: 09/05/2023 5:54 AM CLINICAL INDICATION:Male, 72 years old with history of mechanical ventilation; COMPARISON: Chest radiographs from 09/04/2023 TECHNIQUE: XR chest 1V portable Frontal view of the chest. FINDINGS: Lungs/Pleura: No evidence of focal consolidation or pneumothorax. Blunting of the costophrenic angles is present. Pulmonary vascularity: Pulmonary vascular congestion. Heart/mediastinum: Cardiomediastinal silhouette is prominent in size. Atherosclerotic calcifications are seen in the aorta. Single-lead cardiac conduction device overlying the left hemithorax with lead projecting over the right ventricle. Musculoskeletal: No acute osseous pathology. Other findings: None Lines/Tubes: Endotracheal tube with distal tip 5.4 cm above the holly. Nasogastric tube with its distal tip and side-port projecting under the diaphragm. Right internal jugular central venous catheter with distal tip at the cavoatrial junction. Right-sided PICC line with distal tip at the cavoatrial junction. IMPRESSION: Stable support lines and tubes in appropriate position. Pulmonary edema and bilateral pleural effusions.
[2023-09-05 10:35] VITALS: TEMP 97.5
[2023-09-05] MEDS: 1: MVI, ADULT NO.4 WITH VIT K 10 ML, TRACE (CONC-1ML/DOSE) 1 ML, SODIUM PHOSPHATE 9 MMOL IV SCH (11:23)
--- NOTE | 2023-09-05 11:25 | P.PN ---
Subjective Progress Note Date: 09/05/23 Principal diagnosis: Respiratory failure. Patient was reevaluated today on 08/31/2023, remains in the ICU, remains intubated and mechanically ventilated. Patient is on assist-control rate of 16 tidal volume 400 FiO2 45% PEEP of 5 ABG showed a pO2 of 111 pCO2 54 pH of 7.32, hence his rate was increased up to 18 and his FiO2 was cut down to 40%. Patient remains on multiple drips including vasopressin at 0.04, norepinephrine at 0.35 mcg/kg/min, dobutamine at 5 mg/kg/min propofol at 30 mcg/kg/min he is also on TPN at 65 cc/h IV fluid 50 cc/h of 0.9 normal saline. Remains on Lasix at 40 mg IV push twice daily. Chest x-ray continues to show evidence of pulmonary edema with bilateral pleural effusions, however the patient is responding to Lasix and he continues to have significant and good urine output. The pathology on his bowel tissue came back showing evidence of metastatic disease to the GI tract, most likely the primary source is either pancreatic or hepatobiliary. Family was notified about the diagnosis by Dr. Andino on the case WBC count today is 28.7 hemoglobin is 9.9. Platelets are 264. Basic metabolic profile is normal renal profile is normal bicarb is 25, chest x-ray continues to show evidence of ongoing congestive heart failure and moderate bilateral pleural effusions Patient was evaluated today on 09/01/2023, remains in the ICU, intubated and mechanically ventilated. Patient remains on assist-control rate of 18 tidal volume 400 FiO2 40% and PEEP of 5 ABG showed a pO2 of 85 pCO2 49 pH of 7.42. Hence no ventilator changes were made today. 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 Basic metabolic profile is normal, BUN is 46 creatinine is 0.74 Patient was reevaluated today on 09/02/2023, remains in the ICU, intubated and mechanically ventilated. Patient is on assist-control rate of 18 tidal volume 400 FiO2 40% and PEEP of 5 ABG showed a pO2 of 102 pCO2 50 pH of 7.45 patient remains on multiple drips including dobutamine at 5 mcg/kg/min, propofol propofol at 30 mcg/kg/min, vasopressin at 0.04 units/min, TPN at 65 mL/h patient remains on Merrem and today I changed IV Lasix to Lasix infusion at 5 mg/h since the patient remains swollen and edematous and continues to have large bilateral pleural effusion. Meantime the plan is to hold on sedation today, and daily assessment of mental status, although I believe the patient has extremely very poor prognosis. Chest x-ray continues to show bilateral pleural effusions and evidence of pulmonary edema Patient evaluated today on 09/03/2023, patient remains in the ICU, intubated and mechanically ventilated. Last night the patient was weaned off vasopressin, and while he went off sedation to assess mental status, patient developed an episode of atrial fibrillation with RVR. And hypotension. He is now on norepinephrine again at 0.11 mcg/kg/min. Patient is off vasopressin, remains on dobutamine at 5 mg/kg/min propofol at 40 mcg/kg/min and is also on Lasix drip at 5 mg/h. Vent graf the patient is on assist-control rate of 18 tidal volume 400 FiO2 40% and PEEP of 5 ABG showed a pO2 of 106 pCO2 52 pH of 7.47 hence FiO2 was cut down to 35%. Patient is now about the same, the biggest concern about this patient is the fact that we are not getting to a point where I could fully assess his mental status and decide on further weaning although I doubt the patient will wean successfully. His CODE STATUS has been changed to DNR CODE STATUS, and a tracheostomy as well as PEG tube are not an option. Hoping family will make a decision about comfort care on this patient, and I think that would be the most reasonable approach. Dimensions the patient had positive pathology from his bowel resection showing metastatic pancreatic or hepatobiliary adenocarcinoma. WBC count today is 12.7 hemoglobin 9.5. Platelets are 228, basic metabolic profile is normal renal profile is normal x-ray continues to show bilateral pleural effusions, patient had multiple thoracentesis procedures in the last couple of weeks Progress note dated September 04, 2023. This is a 72-year-old male who was admitted to the hospital on August 20. He came in for a small bowel obstruction, and had exploratory laparotomy with lysis of adhesions, decompression, on August 26. The patient has been in the intensive care unit since that time. He remains on mechanical ventilator. The patient is a no code patient. He is on volume assist-control, rate 18, tidal volume 400, FiO2 35%, PEEP of 5. Blood gases show pO2 of 74, pCO2 47, pH is 7.53. The patient is on dobutamine at 5 mcg/kg/min, norepinephrine at 6.5 mcg/min, Lasix drip at 5 mg an hour, saline at 10 cc an hour, propofol at 30 mcg/kg/min, and TPN at 65 cc an hour. Current labs include a white count of 17.4, hemoglobin 9.5, hematocrit 30.1, platelet count 249,000. Glucose is 121. AST is 85. Albumin 1.8. From August 26, the Gram stain of the wound, was positive for Klebsiella. Also, the sputum from the same day with positive for Klebsiella. Chest x-ray shows a properly placed endotracheal tube, and NG tube. Progress note dated September 05, 2023. 72-year-old male who was admitted to the hospital on August 20. The patient came in for small bowel obstruction, and had an exploratory laparotomy with lysis of adhesions, and decompression, on August 26. The patient has been in the intensive care unit since. He remains on the mechanical ventilator. Ventilator settings include volume assist-control, rate 18, tidal volume 400, FiO2 35%, PEEP of 5. Blood gases show pO2 of 84, pCO2 48, pH is 7.53. The patient is on propofol at 30 mcg/kg/min, TPN at 65 mL/h, norepinephrine at 3.5 mcg/min, saline at 10 cc an hour, dobutamine at 5 mcg/kg/min and Lasix drip at 5 mg an hour. The patient is a DO NOT RESUSCITATE patient. Labs include a white count of 20.1, hemoglobin 9.2, hematocrit 29.3, and a normal platelet count. Sodium 144, potassium 3.2, chlorides 103, CO2 39, BUN 63, and creatinine 0.69. Glucose is 134. Albumin 1.7. Previous cultures from August 26, or positive for Klebsiella oxytoca. Chest x-ray shows evidence of pulmonary edema, with bilateral pleural effusions. Objective - Vital Signs Vital signs: Vital Signs Temp 97.5 F L 09/05/23 08:00 Pulse 112 H 09/05/23 11:00 Resp 19 09/05/23 11:00 BP 135/63 08/29/23 06:15 Pulse Ox 97 09/05/23 11:00 FiO2 35 09/05/23 08:25 Intake & Output 09/04/23 09/05/23 09/05/23 18:59 06:59 18:59 Intake Total 6086.896 1420.303 560 Output Total 1730 1800 750 Balance -94.775 -419.697 -190 Weight 83.7 kg 81.9 kg Intake: IV 586 1057 520 DOBUTamine DRIP 500 mg In 50 25 Dextrose/Water 1 250ml. bag @ 5 MCG/KG/MIN 11.31 mls/hr IV .Q22H7M [facility] Rx# :[id number] Furosemide 100 mg In 15 20 Sodium Chloride 0.9% 90 ml @ 5 MG/HR 5 mls/hr IV .Q20H [facility] Rx#:[id number] KVO 75 20 Meropenem 1 gm In Sodium 100 Chloride 0.9% 100 ml @ 33 .3 mls/hr IVPB Q8H [facility] Rx #:[id number] Mvi, Adult No.4 with Vit 650 325 K 10 ml Trace (Conc-1Ml/ Dose) 1 ml Sodium Acetate 26 meq Sodium Phosphate 9 mmol Potassium Chloride 50 meq Calcium Gluconate 1 gm In Amino Acids 5 %/ Dextrose 20 % 1,000 ml @ 65 mls/hr IV .BY DURATION KYLE Rx#:[id number] NS Pressure Pack 66 72 30 Potassium Chloride 10 meq 100 In Water For Injection 1 100ml.bag @ 100 mls/hr IVPB Q1H [facility] Rx#: [id number] Potassium Chloride 20 meq 100 100 In Water For Injection 1 100ml.bag @ 50 mls/hr IVPB Q2H [facility] Rx#: [id number] Sodium Acetate 40 meq 325 Potassium Chloride 30 meq In Amino Acid 5%-D20w+ Lytes*E* 1,000 ml @ 65 mls/hr IV .BY DURATION KYLE Rx#:[id number] Sodium Chloride 0.9% 1, 80 10 000 ml @ 10 mls/hr IV . Q24H [facility] Rx#:[id number] Intake, IV Titration 1049.225 323.303 40 Amount DOBUTamine DRIP 500 mg In 250 Dextrose/Water 1 250ml. bag @ 5 MCG/KG/MIN 11.31 mls/hr IV .Q22H7M [facility] Rx# :[id number] Furosemide 100 mg In 88.75 92 Sodium Chloride 0.9% 90 ml @ 5 MG/HR 5 mls/hr IV .Q20H [facility] Rx#:[id number] Meropenem 1 gm In Sodium 100 Chloride 0.9% 100 ml @ 33 .3 mls/hr IVPB Q8H [facility] Rx #:[id number] Mvi, Adult No.4 with Vit 390 65 K 10 ml Trace (Conc-1Ml/ Dose) 1 ml Sodium Acetate 26 meq Sodium Phosphate 9 mmol Potassium Chloride 50 meq Calcium Gluconate 1 gm In Amino Acids 5 %/ Dextrose 20 % 1,000 ml @ 65 mls/hr IV .BY DURATION KYLE Rx#:[id number] Norepinephrine 32 mg In 120.475 Sodium Chloride 0.9% 218 ml @ 0.4 MCG/KG/MIN 14. 138 mls/hr IV .[id number] [facility] Rx#:[id number] Sodium Chloride 0.9% 1, 40 000 ml @ 10 mls/hr IV . Q24H [facility] Rx#:[id number] propofoL 1,000 mg In 100 166.303 Empty Bag 1 bag @ 15 MCG/ KG/MIN 6.255 mls/hr IV . Q16H [facility] Rx#:[id number] Oral 0 0 Output: Gastric Drainage 350 200 Urine 1380 1600 750 Other: Voiding Method Indwelling Catheter Indwelling Catheter Indwelling Catheter # Bowel Movements 1 ABP, PAP, CO, CI - Last Documented Arterial Blood Pressure 90/45 - Exam No acute distress, sedated on propofol, with an orally placed endotracheal tube, and NG tube. HEENT examination is grossly unremarkable. Neck supple. Full range of motion. No adenopathy thyromegaly or neck vein distention. Cardiovascular examination reveals regular rhythm rate. S1-S2 normal. No S3 or S4. No discernible murmur noted. Heart sounds are distant. Heart rate 112 bpm. Lungs reveal scattered bilateral rhonchi. Saturations are 97%. No wheezes. No crackles. Breath sounds equal bilaterally. Abdomen soft with bowel sounds. No masses or tenderness. Extremities are intact. No cyanosis clubbing or edema. Skin is without rash or lesion. Neurologic examination cannot be adequately assessed. - Labs CBC & Chem 7: 09/05/23 03:45 09/05/23 03:45 Labs: Abnormal Lab Results - Last 24 Hours (Table) 09/05/23 09/05/23 09/05/23 Range/Units 00:55 03:45 03:45 WBC 20.1 H (3.8-10.6) k/uL RBC 3.28 L (4.30-5.90) m/uL Hgb 9.2 L (13.0-17.5) gm/dL Hct 29.3 L (39.0-53.0) % RDW 16.7 H (11.5-15.5) % Neutrophils # 17.9 H (1.3-7.7) k/uL ABG pH (7.35-7.45) ABG pCO2 (35-45) mmHg ABG HCO3 (21-25) mmol/L ABG Total CO2 (19-24) mmol/L Potassium 3.2 L (3.5-5.1) mmol/L Carbon Dioxide 39 H (22-30) mmol/L BUN 63 H (9-20) mg/dL Glucose 120 H (74-99) mg/dL POC Glucose (mg/dL) 119 H (70-110) mg/dL Calcium 7.6 L (8.4-10.2) mg/dL AST 77 H (17-59) U/L Alkaline Phosphatase 171 H (38-126) U/L Total Protein 4.4 L (6.3-8.2) g/dL Albumin 1.7 L (3.5-5.0) g/dL 09/05/23 09/05/23 Range/Units 04:05 06:14 WBC (3.8-10.6) k/uL RBC (4.30-5.90) m/uL Hgb (13.0-17.5) gm/dL Hct (39.0-53.0) % RDW (11.5-15.5) % Neutrophils # (1.3-7.7) k/uL ABG pH 7.53 H (7.35-7.45) ABG pCO2 48 H (35-45) mmHg ABG HCO3 40 H* (21-25) mmol/L ABG Total CO2 42 H (19-24) mmol/L Potassium (3.5-5.1) mmol/L Carbon Dioxide (22-30) mmol/L BUN (9-20) mg/dL Glucose (74-99) mg/dL POC Glucose (mg/dL) 134 H (70-110) mg/dL Calcium (8.4-10.2) mg/dL AST (17-59) U/L Alkaline Phosphatase (38-126) U/L Total Protein (6.3-8.2) g/dL Albumin (3.5-5.0) g/dL Assessment and Plan Assessment: Acute hypoxemic respiratory failure, secondary to abdominal sepsis, and septic shock,. Small bowel obstruction, status post exploratory laparotomy with lysis of adhesions, and decompression, on August 27, 2023, postop day #8. S/P intubation and mechanical ventilation, beginning August 27, 2023. Acute fecal peritonitis. Hypotension, secondary to sepsis and septic shock. Severe LV dysfunction with an ejection fraction of 20%. Mild to moderate aortic regurgitation and tricuspid regurgitation, with pulmonary hypertension. Acute systolic CHF. CAD, with previous coronary artery bypass grafting. History of Hodgkin's lymphoma with previous splenectomy. History of prostate cancer. History of atrial fibrillation. History of hypothyroidism. Dyslipidemia. Bilateral pleural effusions, status post thoracentesis. History of metastatic pancreatic carcinoma. Plan: Plan dated September 04, 2023. The patient is seen today in room 257. The patient remains on mechanical ventilator, subsequent to his intubation, on August 26, following exploratory laparotomy, lysis of adhesions, and bowel decompression. The patient remains on dobutamine, norepinephrine, Lasix, saline, and propofol. In addition, the patient is getting TPN. The patient is a no code patient. Will talk further with the family about comfort care. The patient's overall prognosis remains very poor. The patient continues on meropenem. We will continue to follow make recommendations along the way. The patient also continues on GI DVT prophylaxis. Plan dated September 05, 2023. The patient is seen in room 257. The patient remains on the mechanical ventilator. The patient has been vented since August 26, following exploratory laparotomy, lysis of adhesions, and bowel decompression. The patient remains on multiple drips including dobutamine, norepinephrine, Lasix, etc. The patient's overall prognosis is very poor. The patient is now a DO NOT RESUSCITATE patient. Family has received information as it relates to possible comfort care. Labs, x-rays, and medications are reviewed. We will continue to follow the patient, make recommendations along the way. Time with Patient: Greater than 30
[2023-09-05] MEDS: ATROPINE OPHTH SOLN 1% 5ML BTL SUBLINGUAL PRN (12:21)
[2023-09-05] MEDS: SCOPOLAMINE 1 MG/72 HR PATCH TRANSDERM SCH (12:21)
[2023-09-05] MEDS: MORPHINE SULFATE (100 MG/2 ML) 100 MG in SODIUM CHLORIDE 0.9% 100 ML IV SCH (12:28)
[2023-09-05] MEDS: MORPHINE SULFATE 2 MG/ML SYRINGE IV PRN (13:09)
[2023-09-05] MEDS: MORPHINE SULFATE 4 MG/ML SYRINGE IV PRN (13:19)
[2023-09-05] MEDS: LORazepam 2 MG/ML INJ IV PRN (13:32)
[2023-09-05 14:08] VITALS: BP 80/45; PULSE 110; RESP 18
--- NOTE | 2023-09-05 14:24 | P.PN ---
Subjective Progress Note Date: 09/05/23 CHIEF COMPLAINT: SBO HISTORY OF PRESENT ILLNESS: Patient admitted to the hospital with small bowel obstruction. Currently ICU intubated and on mechanical ventilation. He is postop day #9 status post exploratory laparotomy with lysis of adhesions, decompressive colotomy with closure, transverse colon, peritoneal lavage. 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 They continue to work on decreasing the Levophed. White count did increase from 17-20. Family has made a decision to proceed with comfort care measures. PHYSICAL EXAM: VITAL SIGNS: Reviewed GENERAL: no acute distress. HEENT: No sclera icterus. Extraocular movements grossly intact. Moist buccal mucosa. Head is atraumatic, normocephalic. Hears conversational speech. No nasal draina ge. NECK: Supple without lymphadenopathy. CHEST: Non-labored respirations and equal bilateral excursions. CARDIOVASCULAR: Palpable 2+ radial pulses. ABDOMEN: Abdomen less firm. Distended. Patient's incisional bandage with drainage noted MUSCULOSKELETAL: No clubbing or cyanosis. NEUROLOGIC: No focal or lateralizing signs. Cranial nerves II through XII grossly intact. PSYCH: Intubated and sedated ASSESSMENT: 1. Small bowel obstruction due to adhesions 2. Paroxysmal atrial fibrillation 3. History of Hodgkin's lymphoma status post splenectomy including chemoradiation 4. History of prostate cancer status postradiation 5. Bilateral pleural effusion 6. Unintentional weight loss 7. Ischemic cardiomyopathy 8. Moderate to severe protein malnutrition 9. 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 History of ischemic colitis 12. Fecal peritonitis 13. Expected ileus due to cardiogenic shock and septic shock 14. 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 Family has made a decision to proceed with comfort care. -Agree with placing patient on comfort care measures Physician Industrial Gas Servicer note has been reviewed by physician. Signing provider agrees with the documented findings, assessment, and plan of care. Objective - Vital Signs Vital signs: Vital Signs Temp 97.5 F L 09/05/23 08:00 Pulse 110 H 09/05/23 11:45 Resp 18 09/05/23 11:45 BP 80/45 09/05/23 11:30 Pulse Ox 98 09/05/23 11:45 FiO2 35 09/05/23 11:43 Intake & Output 09/04/23 09/05/2309/04/24 18:59 06:59 18:59 Intake Total 5832.019 5568.303 1167.375 Output Total 1730 1800 750 Balance -94.775 -419.697 417.375 Weight 83.7 kg 81.9 kg Intake: IV 586 1057 520 DOBUTamine DRIP 500 mg In 50 25 Dextrose/Water 1 250ml. bag @ 5 MCG/KG/MIN 11.31 mls/hr IV .Q22H7M [facility] Rx# :[id number] Furosemide 100 mg In 15 20 Sodium Chloride 0.9% 90 ml @ 5 MG/HR 5 mls/hr IV .Q20H [facility] Rx#:[id number] KVO 75 20 Meropenem 1 gm In Sodium 100 Chloride 0.9% 100 ml @ 33 .3 mls/hr IVPB Q8H [facility] Rx #:[id number] Mvi, Adult No.4 with Vit 650 325 K 10 ml Trace (Conc-1Ml/ Dose) 1 ml Sodium Acetate 26 meq Sodium Phosphate 9 mmol Potassium Chloride 50 meq Calcium Gluconate 1 gm In Amino Acids 5 %/ Dextrose 20 % 1,000 ml @ 65 mls/hr IV .BY DURATION [facility] Rx#:[id number] NS Pressure Pack 66 72 30 Potassium Chloride 10 meq 100 In Water For Injection 1 100ml.bag @ 100 mls/hr IVPB Q1H [facility] Rx#: [id number] Potassium Chloride 20 meq 100 100 In Water For Injection 1 100ml.bag @ 50 mls/hr IVPB Q2H [facility] Rx#: [id number] Sodium Acetate 40 meq 325 Potassium Chloride 30 meq In Amino Acid 5%-D20w+ Lytes*E* 1,000 ml @ 65 mls/hr IV .BY DURATION [facility] Rx#:[id number] Sodium Chloride 0.9% 1, 80 10 000 ml @ 10 mls/hr IV . Q24H [facility] Rx#:[id number] Intake, IV Titration 1049.225 323.303 647.375 Amount DOBUTamine DRIP 500 mg In 250 250 Dextrose/Water 1 250ml. bag @ 5 MCG/KG/MIN 11.31 mls/hr IV .Q22H7M [facility] Rx# :[id number] Furosemide 100 mg In 88.75 92 49.083 Sodium Chloride 0.9% 90 ml @ 5 MG/HR 5 mls/hr IV .Q20H [facility] Rx#:[id number] Meropenem 1 gm In Sodium 100 Chloride 0.9% 100 ml @ 33 .3 mls/hr IVPB Q8H [facility] Rx #:[id number] Morphine Sulfate (100 mg/ 5.474 2 ml) 100 mg In Sodium Chloride 0.9% 100 ml @ 1 MG/HR 1.02 mls/hr IV . Q24H [facility] Rx#:[id number] Mvi, Adult No.4 with Vit 390 65 K 10 ml Trace (Conc-1Ml/ Dose) 1 ml Sodium Acetate 26 meq Sodium Phosphate 9 mmol Potassium Chloride 50 meq Calcium Gluconate 1 gm In Amino Acids 5 %/ Dextrose 20 % 1,000 ml @ 65 mls/hr IV .BY DURATION [facility] Rx#:[id number] Norepinephrine 32 mg In 120.475 34.219 Sodium Chloride 0.9% 218 ml @ 0.4 MCG/KG/MIN 14. 138 mls/hr IV .[id number] [facility] Rx#:[id number] Sodium Chloride 0.9% 1, 40 000 ml @ 10 mls/hr IV . Q24H [facility] Rx#:[id number] Sodium Phosphate 9 mmol 145.167 Potassium Chloride 50 meq Calcium Gluconate 1 gm In Amino Acids 5 %/ Dextrose 20 % 1,000 ml @ 65 mls/hr IV .BY DURATION [facility] Rx#:[id number] propofoL 1,000 mg In 100 166.303 123.432 Empty Bag 1 bag @ 15 MCG/ KG/MIN 6.255 mls/hr IV . Q16H [facility] Rx#:[id number] Oral 0 0 Output: Gastric Drainage 350 200 Urine 1380 1600 750 Other: Voiding Method Indwelling Catheter Indwelling Catheter Indwelling Catheter # Bowel Movements 1 ABP, PAP, CO, CI - Last Documented Arterial Blood Pressure 87/46 - Labs CBC & Chem 7: 09/05/23 03:45 09/05/23 03:45 Labs: Abnormal Lab Results - Last 24 Hours (Table) 09/05/23 09/05/23 09/05/23 Range/Units 00:55 03:45 03:45 WBC 20.1 H (3.8-10.6) k/uL RBC 3.28 L (4.30-5.90) m/uL Hgb 9.2 L (13.0-17.5) gm/dL Hct 29.3 L (39.0-53.0) % RDW 16.7 H (11.5-15.5) % Neutrophils # 17.9 H (1.3-7.7) k/uL ABG pH (7.35-7.45) ABG pCO2 (35-45) mmHg ABG HCO3 (21-25) mmol/L ABG Total CO2 (19-24) mmol/L Potassium 3.2 L (3.5-5.1) mmol/L Carbon Dioxide 39 H (22-30) mmol/L BUN 63 H (9-20) mg/dL Glucose 120 H (74-99) mg/dL POC Glucose (mg/dL) 119 H (70-110) mg/dL Calcium 7.6 L (8.4-10.2) mg/dL AST 77 H (17-59) U/L Alkaline Phosphatase 171 H (38-126) U/L Total Protein 4.4 L (6.3-8.2) g/dL Albumin 1.7 L (3.5-5.0) g/dL 09/05/23 09/05/23 Range/Units 04:05 06:14 WBC (3.8-10.6) k/uL RBC (4.30-5.90) m/uL Hgb (13.0-17.5) gm/dL Hct (39.0-53.0) % RDW (11.5-15.5) % Neutrophils # (1.3-7.7) k/uL ABG pH 7.53 H (7.35-7.45) ABG pCO2 48 H (35-45) mmHg ABG HCO3 40 H* (21-25) mmol/L ABG Total CO2 42 H (19-24) mmol/L Potassium (3.5-5.1) mmol/L Carbon Dioxide (22-30) mmol/L BUN (9-20) mg/dL Glucose (74-99) mg/dL POC Glucose (mg/dL) 134 H (70-110) mg/dL Calcium (8.4-10.2) mg/dL AST (17-59) U/L Alkaline Phosphatase (38-126) U/L Total Protein (6.3-8.2) g/dL Albumin (3.5-5.0) g/dL
--- NOTE | 2023-09-05 14:49 | P.DS ---
Providers Date of admission: 08/20/23 09:22 Expected date of discharge: 09/05/23 Attending physician: Bouchra Kline DO Consults: 08/20/23 09:22 Consult Physician Urgent Consulting Provider: Omayra Andino Consult Reason/Comments: sbo Do you want consulting provider notified?: Yes 08/23/23 11:09 Consult Physician Routine Consulting Provider: Agustin Greer Consult Reason/Comments: Cardiac risk assessment Do you want consulting provider notified?: Yes 08/24/23 11:55 Consult Physician Stat Consulting Provider: Anna Marie Meyers Consult Reason/Comments: pleural effusion, eval for tap prior to surgery Do you want consulting provider notified?: Yes 08/27/23 10:44 Consult Physician Stat Consulting Provider: Faye Hanson Consult Reason/Comments: ICU management Do you want consulting provider notified?: Yes 08/28/23 08:44 Consult Physician Urgent Consulting Provider: Shell Wetzel Consult Reason/Comments: Sepsis Do you want consulting provider notified?: Yes Primary care physician: Roberto Cortez MD Hospital Course: Discharge Diagnosis: Septic shock secondary to fecal peritonitis Fecal peritonitis Small bowel obstruction with history of ischemic colitis Severe protein calorie malnutrition requiring TPN for nutritional support 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 Acute on chronic systolic congestive heart failure with ejection fraction 25 to 30% Bilateral pleural effusion status bilateral postthoracentesis A fib wtih RVR Coronary artery disease status post coronary artery bypass grafting Hypothyroidism Dyslipidemia Metabolic acidosis Hospital Course: Patient is a 72-year-old male with a history of Hodgkin's lymphoma status post chemo radiation and splenectomy in the 1970s, atrial fibrillation, dyslipidemia, coronary artery disease with myocardial infarction and coronary artery bypass surgery, and prostate cancer who presented to the emergency department with complaints of nausea and vomiting. Patient was hospitalized here from 08/01/23 through 08/17/23 for ileus and possible pneumonia. He was treated conservatively. On arrival to the ER he was tachycardic with a pulse of 107. Laboratory in the ER consisted of CBC, coags, and CMP and was remarkable for sodium 135, lactic acid 2.3, and AST of 60. Abdominal x-ray was consistent with ileus. NG tube was placed. Arrangements were made for admission. He underwent CT abdomen pelvis which shows high density contrast into the rectum suggesting no complete obstruction, but could still be a partial obstruction along with anasarca of the soft tissues. He was seen by surgery and subsequently underwent small bowel follow-through which showed contrast in the cecum due to residual suspicious for partial versus complete obstruction. Surgical team determined that he would require surgical intervention. They recommended PICC line for TPN. Cardiology was consulted and determined that the patient was in intermediate risk with no absolute contraindication for surgery. Echocardiogram was obtained which showed an ejection fraction of 25 to 30% with mild pulmonary hypertension and prior inferior wall myocardial infarction with hypokinesis, moderate to severe tricuspid regurgitation, and large pleural effusion. Pulmonary was also consulted for presurgical clearance due to the patient's large pleural effusion. Patient subsequently underwent left-sided thoracentesis on with removal of 1200 cc of fluid, on 08/24 the patient underwent right- sided thoracentesis with removal of 1100 cc of turbulent fluid. On 08/26 patient underwent exploratory laparotomy with lysis of adhesions, decompressive colectomy with closure, and peritoneal lavage. Postoperatively the patient remained intubated and was subsequently transferred to the ICU. He had issues with postoperative hypotension and atrial fibrillation. He required vasopressor support with norepinephrine. Patient was subsequently diagnosed with septic shock which was felt to be due to fecal peritonitis and infectious disease was consulted. Patient was started on Zosyn 3.375 g. Patient's hemodynamics continued to worsen requiring multiple pressors and he is subsequently started on vasopressin and epinephrine along with dobutamine. On 08/29 patient's surgical pathology became available which was consistent with metastatic adenocarcinoma involving subserosal tissue likely from the upper gastrointestinal or pancreatic biliary tract. Patient was able to be weaned off of Levophed by 09/01, he then had an episode of A fib with RVR and was started on heparin and cardio transitioned him off vaso and back on to norepinephrine. He failed to progress furter and his WBD count continued to up trend. His brother decided on comfort measures and he was started on a morphine gtt and extubated. He paced peacefully on 09/05/23 at 1405. Patient seen and examined at bedside prior to the initiation of comfort measures. No acute events overnight per nursing. General: Ill-appearing, no acute distress Cardiovascular: S1S2 reg, no murmur Lungs: Course bs b/l, on vent Abdominal: Soft, nontender to palpation, no guarding Ext: No gross muscle atrophy, 3+ edema b/l lower extremities, no contractures Neuro: breathing over vent Psych: sedated on vent A total of 32 minutes of time were spent preparing this complex discharge summary. Patient was discharged on 09/05/23. This dictation was prepared using [employer] voice recognition software. Though every attempt is made to correct errors during dictation some may still exist. Plan - Discharge Summary New Discharge Prescriptions: No Action Levothyroxine Sodium [Synthroid] 100 mcg PO DAILY Aspirin [Adult Low Dose Aspirin EC] 162 mg PO DAILY Benazepril [Lotensin] 5 mg PO HS Tamsulosin [Flomax] 0.4 mg PO HS Atorvastatin [Lipitor] 40 mg PO HS Famotidine [Pepcid] 20 mg PO BID #30 tablet Fluconazole [Diflucan] 200 mg PO DAILY #5 tablet Furosemide [Lasix] 40 mg PO DAILY #7 tablet Spironolactone [Aldactone] 50 mg PO DAILY Ferrous Sulfate [Iron (65 MG Elemental)] 325 mg PO Q2D Amoxic-Pot Clav 875-125Mg [Augmentin 875-125] 1 tab PO Q12HR 5 Days #10 tab Metoprolol Tartrate [Lopressor] 12.5 mg PO BID #60 tab Potassium Chloride 10 meq PO DAILY #7 cap Discharge Medication List Aspirin [Adult Low Dose Aspirin EC] 162 mg PO DAILY 07/12/17 [History] Levothyroxine Sodium [Synthroid] 100 mcg PO DAILY 07/12/17 [History] Benazepril [Lotensin] 5 mg PO HS 02/04/20 [History] Tamsulosin [Flomax] 0.4 mg PO HS 11/02/20 [History] Atorvastatin [Lipitor] 40 mg PO HS 06/11/21 [History] Spironolactone [Aldactone] 50 mg PO DAILY 07/24/23 [History] Famotidine [Pepcid] 20 mg PO BID #30 tablet 07/28/23 [Rx] Ferrous Sulfate [Iron (65 MG Elemental)] 325 mg PO Q2D 08/01/23 [History] Amoxic-Pot Clav 875-125Mg [Augmentin 875-125] 1 tab PO Q12HR 5 Days #10 tab 08/17/23 [Rx] Fluconazole [Diflucan] 200 mg PO DAILY #5 tablet 08/17/23 [Rx] Furosemide [Lasix] 40 mg PO DAILY #7 tablet 08/17/23 [Rx] Metoprolol Tartrate [Lopressor] 12.5 mg PO BID #60 tab 08/17/23 [Rx] Potassium Chloride 10 meq PO DAILY #7 cap 08/17/23 [Rx] Follow up Appointment(s)/Referral(s): Roberto Cortez MD [Primary Care Provider] - 1-2 days
--- NOTE | 2023-09-05 15:28 | P.PN ---
Subjective Progress Note Date: 09/05/23 Principal diagnosis: Reason for follow-up is sepsis and fecal peritonitis Patient is a 72-year-old male with a past medical history significant for atrial fibrillation coronary artery disease hyperlipidemia LA prostate cancer admitted to the hospital for bowel obstruction treated medically subsequently taken to the OR and the patient was noticed to have feculent john tonitis in this patient who is status post laparotomy with lysis of adhesion decompressive colectomy with closure. On today's evaluation that is 09/05/2023, the patient continues to be afebrile, the patient remains to be intubated on the vent FiO2 at 35% patient still requiring pressor support to maintain his blood pressure no other changes reported by the nurse. Except the patient possibly going to become hospice Patient did have white count of 20.1 creatinine 0.69 Objective - Vital Signs Vital signs: Vital Signs Temp 97.5 F L 09/05/23 08:00 Pulse 112 H 09/05/23 11:00 Resp 19 09/05/23 11:00 BP 135/63 08/29/23 06:15 Pulse Ox 97 09/05/23 11:00 FiO2 35 09/05/23 11:43 Intake & Output 09/04/23 09/05/23 09/05/23 18:59 06:59 18:59 Intake Total 5909.185 9667.303 644.651 Output Total 1730 1800 750 Balance -94.775 -419.697 -105.349 Weight 83.7 kg 81.9 kg Intake: IV 586 1057 520 DOBUTamine DRIP 500 mg In 50 25 Dextrose/Water 1 250ml. bag @ 5 MCG/KG/MIN 11.31 mls/hr IV .Q22H7M [facility] Rx# :[id number] Furosemide 100 mg In 15 20 Sodium Chloride 0.9% 90 ml @ 5 MG/HR 5 mls/hr IV .Q20H [facility]YLE Rx#:[id number] KVO 75 20 Meropenem 1 gm In Sodium 100 Chloride 0.9% 100 ml @ 33 .3 mls/hr IVPB Q8H [facility] Rx #:[id number] Mvi, Adult No.4 with Vit 650 325 K 10 ml Trace (Conc-1Ml/ Dose) 1 ml Sodium Acetate 26 meq Sodium Phosphate 9 mmol Potassium Chloride 50 meq Calcium Gluconate 1 gm In Amino Acids 5 %/ Dextrose 20 % 1,000 ml @ 65 mls/hr IV .BY DURATION KYLE Rx#:[id number] NS Pressure Pack 66 72 30 Potassium Chloride 10 meq 100 In Water For Injection 1 100ml.bag @ 100 mls/hr IVPB Q1H [facility] Rx#: [id number] Potassium Chloride 20 meq 100 100 In Water For Injection 1 100ml.bag @ 50 mls/hr IVPB Q2H [facility] Rx#: [id number] Sodium Acetate 40 meq 325 Potassium Chloride 30 meq In Amino Acid 5%-D20w+ Lytes*E* 1,000 ml @ 65 mls/hr IV .BY DURATION KYLE Rx#:[id number] Sodium Chloride 0.9% 1, 80 10 000 ml @ 10 mls/hr IV . Q24H [facility] Rx#:[id number] Intake, IV Titration 1049.225 323.303 124.651 Amount DOBUTamine DRIP 500 mg In 250 Dextrose/Water 1 250ml. bag @ 5 MCG/KG/MIN 11.31 mls/hr IV .Q22H7M [facility] Rx# :[id number] Furosemide 100 mg In 88.75 92 Sodium Chloride 0.9% 90 ml @ 5 MG/HR 5 mls/hr IV .Q20H [facility] Rx#:[id number] Meropenem 1 gm In Sodium 100 Chloride 0.9% 100 ml @ 33 .3 mls/hr IVPB Q8H [facility] Rx #:[id number] Mvi, Adult No.4 with Vit 390 65 K 10 ml Trace (Conc-1Ml/ Dose) 1 ml Sodium Acetate 26 meq Sodium Phosphate 9 mmol Potassium Chloride 50 meq Calcium Gluconate 1 gm In Amino Acids 5 %/ Dextrose 20 % 1,000 ml @ 65 mls/hr IV .BY DURATION KYLE Rx#:[id number] Norepinephrine 32 mg In 120.475 Sodium Chloride 0.9% 218 ml @ 0.4 MCG/KG/MIN 14. 138 mls/hr IV .[id number] [facility] Rx#:[id number] Sodium Chloride 0.9% 1, 40 000 ml @ 10 mls/hr IV . Q24H [facility] Rx#:[id number] propofoL 1,000 mg In 100 166.303 84.651 Empty Bag 1 bag @ 15 MCG/ KG/MIN 6.255 mls/hr IV . Q16H [facility] Rx#:[id number] Oral 0 0 Output: Gastric Drainage 350 200 Urine 1380 1600 750 Other: Voiding Method Indwelling Catheter Indwelling Catheter Indwelling Catheter # Bowel Movements 1 ABP, PAP, CO, CI - Last Documented Arterial Blood Pressure 90/45 - Labs CBC & Chem 7: 09/05/23 03:45 09/05/23 03:45 Labs: Abnormal Lab Results - Last 24 Hours (Table) 09/05/23 09/05/23 09/05/23 Range/Units 00:55 03:45 03:45 WBC 20.1 H (3.8-10.6) k/uL RBC 3.28 L (4.30-5.90) m/uL Hgb 9.2 L (13.0-17.5) gm/dL Hct 29.3 L (39.0-53.0) % RDW 16.7 H (11.5-15.5) % Neutrophils # 17.9 H (1.3-7.7) k/uL ABG pH (7.35-7.45) ABG pCO2 (35-45) mmHg ABG HCO3 (21-25) mmol/L ABG Total CO2 (19-24) mmol/L Potassium 3.2 L (3.5-5.1) mmol/L Carbon Dioxide 39 H (22-30) mmol/L BUN 63 H (9-20) mg/dL Glucose 120 H (74-99) mg/dL POC Glucose (mg/dL) 119 H (70-110) mg/dL Calcium 7.6 L (8.4-10.2) mg/dL AST 77 H (17-59) U/L Alkaline Phosphatase 171 H (38-126) U/L Total Protein 4.4 L (6.3-8.2) g/dL Albumin 1.7 L (3.5-5.0) g/dL 09/05/23 09/05/23 Range/Units 04:05 06:14 WBC (3.8-10.6) k/uL RBC (4.30-5.90) m/uL Hgb (13.0-17.5) gm/dL Hct (39.0-53.0) % RDW (11.5-15.5) % Neutrophils # (1.3-7.7) k/uL ABG pH 7.53 H (7.35-7.45) ABG pCO2 48 H (35-45) mmHg ABG HCO3 40 H* (21-25) mmol/L ABG Total CO2 42 H (19-24) mmol/L Potassium (3.5-5.1) mmol/L Carbon Dioxide (22-30) mmol/L BUN (9-20) mg/dL Glucose (74-99) mg/dL POC Glucose (mg/dL) 134 H (70-110) mg/dL Calcium (8.4-10.2) mg/dL AST (17-59) U/L Alkaline Phosphatase (38-126) U/L Total Protein (6.3-8.2) g/dL Albumin (3.5-5.0) g/dL Assessment and Plan (1) Fecal peritonitis Status: Acute Code(s): K65.8 - OTHER PERITONITIS SNOMED Code(s): 994683817 (2) Leukocytosis Status: Acute Code(s): D72.829 - ELEVATED WHITE BLOOD CELL COUNT, UNSPECIFIED SNOMED Code(s): 995586598 (3) Sepsis Status: Acute Code(s): A41.9 - SEPSIS, UNSPECIFIED ORGANISM SNOMED Code(s): 49744728 Plan: 1patient with sepsis/septic shock in this patient who did have a tachycardia elevated white count source is fecal peritonitis in this patient who is status post extensive abdominal surgery for small bowel obstruction we will need to cover for enteric gram-negative both aerobes and anaerobes 2-abdominal cultures growing Klebsiella that is resistant to Unasyn as well as Zosyn though sensitive to meropenem and ertapenem as well as anaerobes 3-patient did have resolution of his fever patient however noticed to have worsening of his white count family at the bedside and considering possible hospice hence will hold on adding any further workup at this point 4-we will switch to hospice meropenem will be safely discontinued Dictation was produced using [employer] dictation software. please excuse any grammatical, word or spelling errors. Time with Patient: Less than 30
--- NOTE | 2023-09-07 13:08 | P.PN ---
Progress Note - Text Progress Note Date: 09/07/23 Contacted the patient's family brother Pieter over the phone. I extended my condolences. Additional questions regarding surgical care including intraoperative findings were reviewed. Brother overall pleased with the surgical component of the care. Expected cardiac comorbidities were reviewed pr ior to surgery including after surgery that led to patient's demise with cardiac arrest.
== END 2023-09-05 15:20 | disposition expired | DRG 335 ==
LOC: EC 06:44 → 5NMEDONC 09:22 → 2SICU 08-27 11:09
PROVIDERS: ADMIT Internal Medicine; ATTEND Internal Medicine
PROC: 0D9670Z Drainage of Stomach with Drainage Device, Via Natural or Artificial Opening (ICD-10-PCS; 2023-08-20)
PROC: 02HV33Z Insertion of Infusion Device into Superior Vena Cava, Percutaneous Approach (ICD-10-PCS; 2023-08-23)
PROC: 3E0436Z Introduction of Nutritional Substance into Central Vein, Percutaneous Approach (ICD-10-PCS; 2023-08-23)
PROC: 0W9B3ZZ Drainage of Left Pleural Cavity, Percutaneous Approach (ICD-10-PCS; 2023-08-24)
PROC: 0W993ZZ Drainage of Right Pleural Cavity, Percutaneous Approach (ICD-10-PCS; 2023-08-25)
PROC: 0DCL0ZZ Extirpation of Matter from Transverse Colon, Open Approach (ICD-10-PCS; 2023-08-27)
PROC: 3E1M38Z Irrigation of Peritoneal Cavity using Irrigating Substance, Percutaneous Approach (ICD-10-PCS; 2023-08-27)
PROC: 30233J1 Transfusion of Nonautologous Serum Albumin into Peripheral Vein, Percutaneous Approach (ICD-10-PCS; 2023-08-27)
PROC: 5A1955Z Respiratory Ventilation, Greater than 96 Consecutive Hours (ICD-10-PCS; 2023-08-27)
PROC: 0DNU0ZZ Release Omentum, Open Approach (ICD-10-PCS; principal; 2023-08-27 09:00)
PROC: 3E043XZ Introduction of Vasopressor into Central Vein, Percutaneous Approach (ICD-10-PCS; 2023-08-28)
DX: K56.52 Intestinal adhesions [bands] with complete obstruction (principal); A41.89 Other specified sepsis; R65.21 Severe sepsis with septic shock; J96.01 Acute respiratory failure with hypoxia; I50.23 Acute on chronic systolic (congestive) heart failure; E43 Unspecified severe protein-calorie malnutrition; K65.8 Other peritonitis; D84.81 Immunodeficiency due to conditions classified elsewhere; C78.89 Secondary malignant neoplasm of other digestive organs; J91.8 Pleural effusion in other conditions classified elsewhere; E87.20 Acidosis, unspecified; K52.1 Toxic gastroenteritis and colitis; Z16.11 Resistance to penicillins; I27.20 Pulmonary hypertension, unspecified; I11.0 Hypertensive heart disease with heart failure; I48.0 Paroxysmal atrial fibrillation; K56.7 Ileus, unspecified; I46.8 Cardiac arrest due to other underlying condition; Z51.5 Encounter for palliative care; Z66 Do not resuscitate; I08.3 Combined rheumatic disorders of mitral, aortic and tricuspid valves; E03.9 Hypothyroidism, unspecified; I95.89 Other hypotension; Z53.8 Procedure and treatment not carried out for other reasons; E78.5 Hyperlipidemia, unspecified; I25.5 Ischemic cardiomyopathy; T50.995A Adverse effect of other drugs, medicaments and biological substances, initial encounter; D75.838 Other thrombocytosis; E16.2 Hypoglycemia, unspecified; E87.6 Hypokalemia; I25.10 Atherosclerotic heart disease of native coronary artery without angina pectoris; B96.1 Klebsiella pneumoniae [K. pneumoniae] as the cause of diseases classified elsewhere; I49.3 Ventricular premature depolarization; Y84.2 Radiological procedure and radiotherapy as the cause of abnormal reaction of the patient, or of later complication, without mention of misadventure at the time of the procedure; Z96.642 Presence of left artificial hip joint; Z85.71 Personal history of Hodgkin lymphoma; Z87.19 Personal history of other diseases of the digestive system; Z85.46 Personal history of malignant neoplasm of prostate; I25.2 Old myocardial infarction; Z92.21 Personal history of antineoplastic chemotherapy; Z92.3 Personal history of irradiation; Z90.81 Acquired absence of spleen; Z79.82 Long term (current) use of aspirin; Z79.890 Hormone replacement therapy; Z79.899 Other long term (current) drug therapy; Z91.030 Bee allergy status; Z88.0 Allergy status to penicillin; Z95.1 Presence of aortocoronary bypass graft; Z95.810 Presence of automatic (implantable) cardiac defibrillator; Z68.25 Body mass index [BMI] 25.0-25.9, adult
CPT/HCPCS: 36415; 36573; 71045; 71046; 74018; 74176; 74250; 80048; 80053; 81003; 82272; 82330; 82805; 83605; 83735; 84100; 84132; 84478; 85025; 85027; 85610; 85730; 86301; 86850; 86900; 86901; 87040; 87070; 87075; 87077; 87186; 87205; 88304; 88307; 88341; 88342; 93005; 93306; 94002; 94003; 94640; 96361; 96374; 96375; 96376; 99285